=== PATIENT | female | born 1935 | race Caucasian/White ===

== ENCOUNTER → 2016-10-24 | Outpatient (CLI) | payer MEDICARE ==
--- NOTE | 2016-10-24 12:03 | CT ---
EXAMINATION TYPE: CT ChestAbdPelvis w con DATE OF EXAM: 10/24/2016 11:39 AM COMPARISON: CT cap December 18, 2015. HISTORY: Metastatic breast cancer. CT DLP: 1324 mGycm. Automated Exposure Control for Dose Reduction was Utilized. CONTRAST: CT scan of the thorax, abdomen and pelvis is performed with oral and with IV Contrast, patient inject ed with 80 ml mL of Visipaque 320. FINDINGS: Exam is suboptimal as is degraded by patient motion and noncooperation. Significant respira tory motion artifact is noted. LUNGS: There is motion artifact seen making evaluation for subcentimeter nodularity suboptimal. There is mild apical scarring felt present bilaterally. No obvious parenchymal nodule or mass is present b ilaterally. No pleural effusion or pneumothorax is identified. MEDIASTINUM: There are no greater than 1 cm hilar or mediastinal lymph nodes. No cardiomegaly or pe ricardial effusion is seen. Coronary artery calcification is present. Heterogeneous slightly promine nt thyroid gland is stable. OTHER: Right breast is surgically absent. LIVER/GB: Gallbladder is not visualized and presumed surgically absent. PANCREAS: No significant abnormality is seen. SPLEEN: No significant abnormality is seen. ADRENALS: No significant abnormality is seen. KIDNEYS: Staghorn type calculus measuring 16 mm on long axis on coronal image 16 with fullness of rig ht renal pelvis is redemonstrated. It is increase in size and moved to renal pelvis location versus p rior. There is symmetric cortical medullary uptake and excretion from both kidneys. There is mild wal l thickening throughout the urinary bladder. BOWEL: There is redundant sigmoid colon GENITAL ORGANS: No gross abnormality seen. LYMPH NODES: No greater than 1cm abdominal or pelvic lymph nodes are appreciated. OSSEOUS STRUCTURES: Diffuse osseous sclerotic metastatic disease is redemonstrated, overall no signif icant change is present from prior study. No obvious new pathologic fractures are identified. OTHER: There is moderate calcified atherotic change of aorta and branch vessels. IMPRESSION: Suboptimal study with stable diffuse osseous metastatic disease redemonstrated. No new ma ss or adenopathy is clearly seen. Progression in size and position of large right renal calculus into pelvis is noted.
--- NOTE | 2016-10-24 15:06 | NM ---
EXAMINATION TYPE: NM bone scan whole body DATE OF EXAM: 10/24/2016 2:44 PM COMPARISON: CT 10/24/2016 HISTORY: Pain possible bone metastases Delayed whole-body scanning was performed following the injection of 27.5 mCi Tc 99m MDP. Images acq uired 4.5 hours post injection. FINDINGS: There is extensive and diffuse abnormal uptake throughout the rib cage bilaterally and throughout the vertebral column, pelvic bones and proximal for more. Abnormal uptake involving the left humeral hea d noted. Findings suspicious for malignancy. Abnormal uptake involving the feet, ankles, and shoulders typical of arthritic change. IMPRESSION: Diffuse abnormal uptake corresponds to the CT abnormalities compatible with bony metastases
== END ==
LOC: RADNMMAIN 08:52
PROVIDERS: ATTEND Internal Medicine Hematology & Oncology
DX: C50.411 Malignant neoplasm of upper-outer quadrant of right female breast (principal); C79.51 Secondary malignant neoplasm of bone; N20.0 Calculus of kidney
CPT/HCPCS: 82565; 84520; 71260; 74177; 36415; 78306; A9503; Q9967 ×2

== ENCOUNTER 2016-11-26 13:26 | Inpatient (IN) | payer MEDICARE ==
[2016-11-26] MEDS ORDERED: SODIUM CHLORIDE 0.9% 1,000 ML IV STA (14:24)
--- NOTE | 2016-11-26 14:33 | ED ---
General Adult HPI - General Chief complaint: Weakness Stated complaint: weakness Time Seen by Provider: 11/26/16 13:50 Source: patient, family, RN notes reviewed Mode of arrival: EMS Limitations: no limitations - History of Present Illness Initial comments: Patient is a very pleasant 81-year-old female presenting to the emergency Department with concerns of lower back discomfort. Family adds that appears that she has been generally weak and acting out of bed for the past few days. Patient has been urinating on herself. Patient admits to feeling somewhat weak all over. Patient does have a history of metastatic breast cancer that is somewhat controlled with hormone therapy. Patient states she has been drinking and does not feel dehydrated. Patient denies any isolated area of weakness. Patient denies confusion. Patient is concerned she could have a kidney stone. - Related Data Home Medications Medication Instructions Recorded Confirmed Anastrozole [Arimidex] 1 mg PO DAILY 05/14/15 11/26/16 Cholecalciferol [Vitamin D3] 2,000 unit PO DAILY 05/14/15 11/26/16 INSULIN LISPRO (humaLOG) [humaLOG 30 - 40 unit SQ AC-BID 11/26/16 11/26/16 (formulary)] Warfarin [Coumadin] 3 mg PO TUTH 11/26/16 11/26/16 glyBURIDE/METFORMIN HCL 2 tab PO BID 11/26/16 11/26/16 [glyBURIDE/METFORMIN HCL 5-500 mg] Previous Rx's Medication Instructions Recorded Acetaminophen Tab [Tylenol] 650 mg PO Q6HR PRN #0 tab 04/20/16 Metoprolol Tartrate [Lopressor] 25 mg PO BID tab 04/20/16 Allergies Allergy/AdvReac Type Severity Reaction Status Date / Time codeine Allergy Abdominal Verified 11/26/16 13:46 Pain Review of Systems ROS Statement: Those systems with pertinent positive or pertinent negative responses have been documented in the HPI. ROS Other: All systems not noted in ROS Statement are negative. Constitutional: Denies: fever Eyes: Denies: eye pain ENT: Denies: ear pain Respiratory: Denies: cough Cardiovascular: Denies: chest pain Endocrine: Denies: fatigue Gastrointestinal: Denies: abdominal pain Genitourinary: Denies: dysuria Musculoskeletal: Reports: back pain Skin: Denies: rash Neurological: Denies: weakness Past Medical History Past Medical History: Cancer, Diabetes Mellitus, Deep Vein Thrombosis (DVT), Hyperlipidemia, Hypertension, Memory Impairment Additional Past Medical History / Comment(s): hx. 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 DVT leg years ago, uses walker, bone CA-sees dr hu, leakage of urine,arhtirits, fx both feet (casted on;y) History of Any Multi-Drug Resistant Organisms: None Reported Past Surgical History: Breast Surgery, Cholecystectomy, Heart Catheterization, Tubal Ligation Additional Past Surgical History / Comment(s): right mastectomy, cataracts removed, excision of lesion rt cheek, steroid inj in past for heel spur Past Anesthesia/Blood Transfusion Reactions: No Reported Reaction Past Psychological History: No Psychological Hx Reported Additional Psychological History / Comment(s): lives alone in own home, uses a cane or walker to get around.recieves meals on wheels but no other outside services. Smoking Status: Never smoker Past Alcohol Use History: None Reported Past Drug Use History: None Reported - Past Family History Mother Family Medical History: Diabetes Mellitus Father Family Medical History: Congestive Heart Failure (CHF) General Exam Limitations: no limitations General appearance: alert, in no apparent distress Head exam: Present: atraumatic Eye exam: Present: normal appearance, PERRL ENT exam: Present: mucous membranes dry Neck exam: Present: normal inspection Respiratory exam: Present: normal lung sounds bilaterally Cardiovascular Exam: Present: regular rate, normal rhythm GI/Abdominal exam: Present: soft, normal bowel sounds. Absent: distended, tenderness, guarding, rebound, rigid, pulsatile mass Extremities exam: Present: normal inspection Back exam: Present: CVA tenderness (R) (Mild tenderness below the right CVA region) Neurological exam: Present: alert, CN II-XII intact Expanded Speech: Present: fluid speech Cranial nerves: EOM's Intact: Normal, Facial Sensation: Normal Sensory exam: Upper Extremity Light Touch: Normal, Lower Extremity Light Touch: Normal Motor strength exam: RUE: 5, LUE: 5, RLE: 5, LLE: 5 Psychiatric exam: Present: normal affect, normal mood Skin exam: Absent: rash Course Vital Signs 11/26/16 11/26/16 13:37 15:44 Temperature 98.8 F 99.1 F Pulse Rate 86 78 Respiratory 18 18 Rate Blood Pressure 105/57 103/55 O2 Sat by Pulse 93 L 97 Oximetry EKG Findings - EKG Comments: EKG Findings:: Sinus rhythm at 88. RI 150. QRS 132. QT 374. QTC 452. Normal axis. Right bundle branch block. No acute ST change. Medical Decision Making - Medical Decision Making Patient reexamined. Patient and family updated. Dr. Ordoñez has been paged for admission for Dr. Rcihardson. Patient does not meet Sirs criteria - Lab Data Result diagrams: 11/26/16 14:48 11/26/16 14:48 Lab Results 11/26/16 11/26/16 11/26/16 Range/Units 14:48 14:48 14:48 WBC 16.1 H (3.8-10.6) k/uL RBC 4.38 (3.80-5.40) m/uL Hgb 11.9 (11.4-16.0) gm/dL Hct 36.0 (34.0-46.0) % MCV 82.3 (80.0-100.0) fL MCH 27.2 (25.0-35.0) pg MCHC 33.0 (31.0-37.0) g/dL RDW 14.4 (11.5-15.5) % Plt Count 231 (150-450) k/uL Neutrophils % 90 % Lymphocytes % 3 % Monocytes % 6 % Eosinophils % 0 % Basophils % 0 % Neutrophils # 14.4 H (1.3-7.7) k/uL Lymphocytes # 0.4 L (1.0-4.8) k/uL Monocytes # 1.0 (0-1.0) k/uL Eosinophils # 0.0 (0-0.7) k/uL Basophils # 0.0 (0-0.2) k/uL PT (9.0-12.0) sec INR (<1.1) APTT (22.0-30.0) sec Sodium 132 L (137-145) mmol/L Potassium 4.1 (3.5-5.1) mmol/L Chloride 100 (98-107) mmol/L Carbon Dioxide 23 (22-30) mmol/L Anion Gap 9 mmol/L BUN 51 H (7-17) mg/dL Creatinine 1.70 H (0.52-1.04) mg/dL Est GFR (MDRD) Af Amer 35 (>60 ml/min/1.73 sqM) Est GFR (MDRD) Non-Af 29 (>60 ml/min/1.73 sqM) Glucose 120 H (74-99) mg/dL Calcium 9.6 (8.4-10.2) mg/dL Phosphorus 2.5 (2.5-4.5) mg/dL Magnesium 2.1 (1.6-2.3) mg/dL Total Bilirubin 0.8 (0.2-1.3) mg/dL AST 29 (14-36) U/L ALT 67 H (9-52) U/L Alkaline Phosphatase 77 (38-126) U/L Total Creatine Kinase 173 H (30-135) U/L CK-MB (CK-2) 1.7 (0.0-2.4) ng/mL CK-MB (CK-2) Rel Index 1.0 Troponin I 0.089 H* (0.000-0.034) ng/mL Total Protein 6.0 L (6.3-8.2) g/dL Albumin 3.0 L (3.5-5.0) g/dL TSH 2.560 (0.465-4.680) mIU/L Free T4 1.36 (0.78-2.19) ng/dL Free T3 pg/mL 2.7 L (2.8-5.3) pg/ml Urine Color Urine Appearance (Clear) Urine pH (5.0-8.0) Ur Specific [place] (1.001-1.035) Urine Protein (Negative) Urine Glucose (UA) (Negative) Urine Ketones (Negative) Urine Blood (Negative) Urine Nitrite (Negative) Urine Bilirubin (Negative) Urine Urobilinogen (<2.0) mg/dL Ur Leukocyte Esterase (Negative) Urine RBC (0-5) /hpf Urine WBC (0-5) /hpf Urine WBC Clumps (None) /hpf Urine Bacteria (None) /hpf Urine Mucus (None) /hpf 11/26/16 11/26/16 Range/Units 14:48 14:48 WBC (3.8-10.6) k/uL RBC (3.80-5.40) m/uL Hgb (11.4-16.0) gm/dL Hct (34.0-46.0) % MCV (80.0-100.0) fL MCH (25.0-35.0) pg MCHC (31.0-37.0) g/dL RDW (11.5-15.5) % Plt Count (150-450) k/uL Neutrophils % % Lymphocytes % % Monocytes % % Eosinophils % % Basophils % % Neutrophils # (1.3-7.7) k/uL Lymphocytes # (1.0-4.8) k/uL Monocytes # (0-1.0) k/uL Eosinophils # (0-0.7) k/uL Basophils # (0-0.2) k/uL PT 18.5 H (9.0-12.0) sec INR 1.9 (<1.1) APTT 29.1 (22.0-30.0) sec Sodium (137-145) mmol/L Potassium (3.5-5.1) mmol/L Chloride (98-107) mmol/L Carbon Dioxide (22-30) mmol/L Anion Gap mmol/L BUN (7-17) mg/dL Creatinine (0.52-1.04) mg/dL Est GFR (MDRD) Af Amer (>60 ml/min/1.73 sqM) Est GFR (MDRD) Non-Af (>60 ml/min/1.73 sqM) Glucose (74-99) mg/dL Calcium (8.4-10.2) mg/dL Phosphorus (2.5-4.5) mg/dL Magnesium (1.6-2.3) mg/dL Total Bilirubin (0.2-1.3) mg/dL AST (14-36) U/L ALT (9-52) U/L Alkaline Phosphatase (38-126) U/L Total Creatine Kinase (30-135) U/L CK-MB (CK-2) (0.0-2.4) ng/mL CK-MB (CK-2) Rel Index Troponin I (0.000-0.034) ng/mL Total Protein (6.3-8.2) g/dL Albumin (3.5-5.0) g/dL TSH (0.465-4.680) mIU/L Free T4 (0.78-2.19) ng/dL Free T3 pg/mL (2.8-5.3) pg/ml Urine Color Light Yellow Urine Appearance Cloudy H (Clear) Urine pH 6.5 (5.0-8.0) Ur Specific [place] 1.007 (1.001-1.035) Urine Protein 1+ H (Negative) Urine Glucose (UA) Negative (Negative) Urine Ketones Negative (Negative) Urine Blood Small H (Negative) Urine Nitrite Negative (Negative) Urine Bilirubin Negative (Negative) Urine Urobilinogen <2.0 (<2.0) mg/dL Ur Leukocyte Esterase Large H (Negative) Urine RBC 4 (0-5) /hpf Urine WBC 85 H (0-5) /hpf Urine WBC Clumps Many H (None) /hpf Urine Bacteria Few H (None) /hpf Urine Mucus Rare H (None) /hpf - Radiology Data Radiology results: report reviewed (Computed tomography scan the brain shows no acute process.), image reviewed (Computed tomography scan of the abdomen and pelvis shows 0.8 cm renal pelvis stone without obstruction. Sclerotic metastasis. Two-view chest x-ray shows no acute process.) Disposition Clinical Impression: ARF (acute renal failure), Dehydration, Urinary tract infection, Weakness Disposition: ADMITTED IP TO [facility] Condition: Serious Time of Disposition: 16:08
[2016-11-26 14:59] LABS: Basophils % (A) 0 %; CH 27.2; CHCM 33.3; Eosinophils % (A) 0 %; HDW 2.55; HGB 11.9 gm/dL (11.4-16.0); Luc # (Auto) 0.24; Luc % (Auto) 2; Lymphocytes # (A) 0.4 k/uL (1.0-4.8); Lymphocytes % (A) 3 %; MCH 27.2 pg (25.0-35.0); MCV 82.3 fL (80.0-100.0); Mean Platelet Volume 6.8; Monocytes % (A) 6 %; Neutrophils # (A) 14.4 k/uL (1.3-7.7); Neutrophils % (A) 90 %; RBC 4.38 m/uL (3.80-5.40); RDW 14.4 % (11.5-15.5); WBC 16.1 k/uL (3.8-10.6); WBC (Perox) 15.76
[2016-11-26 15:11] LABS: Appearance,Urine Cloudy (Clear); Bacteria,Urine Few /hpf; Bilirubin,Urine Negative (Negative); Glucose,Urine (UA) Negative (Negative); Ketones,Urine Negative (Negative); Leukocyte Esterase,Urine Large (Negative); Mucus,Urine Rare /hpf; Nitrite,Urine Negative (Negative); PH, Urine 6.5 (5.0-8.0); Particle Count 92795; Protein,Urine 1+ (Negative); RBC,Urine 4 /hpf (0-5); Specific Gravity,Urine 1.007 (1.001-1.035); UA Billing (MACRO vs. MICRO) MICRO; Urobilinogen,Urine <2.0 mg/dL (<2.0); WBC,Urine 85 /hpf (0-5)
[2016-11-26 15:17] LABS: Calcium 9.6 mg/dL (8.4-10.2); Magnesium 2.1 mg/dL (1.6-2.3); Phosphorous 2.5 mg/dL (2.5-4.5); Potassium 4.1 mmol/L (3.5-5.1); Total Bilirubin 0.8 mg/dL (0.2-1.3)
[2016-11-26 15:19] LABS: INR 1.9 (<1.1); Partial Thromboplastin Time 29.1 sec (22.0-30.0); Prothrombin Time 18.5 sec (9.0-12.0)
--- NOTE | 2016-11-26 15:29 | CT ---
EXAMINATION TYPE: CT brain wo con DATE OF EXAM: 11/26/2016 3:25 PM COMPARISON: NONE INDICATION: Weakness DLP: 1072.30 mGycm, Automated exposure control for dose reduction was used. CONTRAST: None CT of the brain is performed utilizing 3 mm thick sections through the posterior fossa and 3 mm thick sections through the remaining calvarium. Study is performed within 24 hours of arrival to the hosp ital. No abnormal hyperdensity is present to suggest an acute intracranial hemorrhage. No mass lesion is evident. Physiologic basal ganglion calcification is present on the right and faint ly on the left. No acute infarcts are evident. Periventricular white matter hypodensity is present, likely on the bas is of chronic white matter ischemic changes. There is an old lacunar infarct or Virchow-Zbigniew space o n the left at the inferior basal ganglion. Ventricles and sulci are mildly prominent for the patient age. Paranasal sinuses and mastoid air cells within the [id number]-[id number] are clear. IMPRESSIONS: 1. Atrophy with periventricular white matter ischemic type changes.
[2016-11-26 15:33] LABS: Creatine Kinase MB 1.7 ng/mL (0.0-2.4)
[2016-11-26 15:45] LABS: Troponin I 0.089 ng/mL (0.000-0.034)
--- NOTE | 2016-11-26 16:03 | CT ---
EXAMINATION TYPE: CT abdomen pelvis wo con DATE OF EXAM: 11/26/2016 3:25 PM COMPARISON: 10/24/2016 INDICATION: Left side flank pain, history of breast cancer with metastasis. DLP: 812.80 mGycm, Automated exposure control for dose reduction was used. CONTRAST: 0 mL of Omnipaque 300. Study performed without Oral Contrast TECHNIQUE: Axial images were obtained from above the diaphragm to the pubic rami in the axial plane a t 5 mm thick sections. Reconstructed images are reviewed on the computer in the coronal plane. FINDINGS: Limited CT sections are obtained the lung bases. Small bilateral pleural effusions are present, grea ter on the right.. Coronary artery calcification is present. CT ABDOMEN: Liver: Normal Spleen: Normal Pancreas: Normal Adrenal glands: Some mild thickening of the left adrenal gland is present measuring 1.3 cm. The right adrenal gland appears within normal limits. Gallbladder: Normal Kidneys: No masses are evident. No hydronephrosis is present. No cysts are present. There is a 0.8 cm proximal right renal pelvis stone. No hydronephrosis is present. There is minimal prominence of t he renal pelvis. No hydroureter is evident. Some perinephric stranding may be present bilaterally. Th e right renal stone was present previously. Aorta: Vascular calcification is within the aorta. Inferior vena cava: Normal. CT PELVIS: Loops of bowel within the abdomen and pelvis are normal. No oral contrast was utilized. Appendix: Not identified Urinary bladder: Normal. Genitourinary structures: Uterus contains calcifications compatible calcified fibroids. Adnexal regio ns are clear. Osseous structures: There are some scattered sclerotic areas within the right femoral neck and within the lateral pubic ramus. A small sclerotic area may be within the lateral right pubic ramus. Some sc lerosis is along the left femoral neck. Sclerotic metastases are not excluded. There are additional s clerotic areas within the S1 level within the medial iliac wings. Multiple Areas of sclerosis are wit hin the vertebral bodies. Correlate for osseous metastasis. IMPRESSIONS: 1. 0.8 cm right renal pelvis stone without obstruction. 2. Sclerotic metastases within the osseous structures. 3. No suspicious etiology for left flank pain.
--- NOTE | 2016-11-26 16:05 | XR ---
EXAMINATION TYPE: XR chest 2V DATE OF EXAM: 11/26/2016 3:37 PM COMPARISON: 04/13/2016 INDICATION: Short of breath TECHNIQUE: Single frontal view of the chest is obtained. FINDINGS: The heart size is normal. The pulmonary vasculature is upper limits of normal. The lungs are clear. IMPRESSION: 1. No acute pulmonary process.
[2016-11-26] MEDS ORDERED: MORPHINE SULFATE 4 MG/ML SYRINGE IV PRN (16:08)
[2016-11-26] MEDS ORDERED: traMADol 50 MG TAB PO PRN (16:08)
[2016-11-26] MEDS ORDERED: NALOXONE 0.4 MG/ML 1 ML VIAL IV PRN (16:08)
[2016-11-26] MEDS: SODIUM CHLORIDE 0.9% 1,000 ML IV SCH (16:30)
[2016-11-26 18:31] LABS: Glucose,Whole Blood 45 mg/dL (75-99)
[2016-11-26 18:35] LABS: Glucose,Whole Blood 48 mg/dL (75-99)
[2016-11-26 19:31] LABS: Glucose,Whole Blood 80 mg/dL (75-99)
[2016-11-26 19:31] LABS: Glucose,Whole Blood 63 mg/dL (75-99)
[2016-11-26 21:15] LABS: Glucose,Whole Blood 162 mg/dL (75-99)
[2016-11-27] MEDS: SODIUM CHLORIDE 0.9% 1,000 ML IV SCH ×2 (03:38→21:08)
[2016-11-27 06:35] LABS: Glucose,Whole Blood 79 mg/dL (75-99)
[2016-11-27] MEDS: INSULIN LISPRO (humaLOG) 300 UNIT/3 ML VIAL SQ SCH ×4 (06:43→21:12)
[2016-11-27 07:34] LABS: Calcium 9.6 mg/dL (8.4-10.2)
--- NOTE | 2016-11-27 10:21 | P.HPIM ---
History of Present Illness H&P Date: 11/27/16 Chief Complaint: Generalized weakness and mental status changes Patient is a 81-year-old female who presented to emergency room with generalized weakness, mental status changes, urinary incontinence, and low back pain. Family stated in the emergency room that patient was staying in bed and not talking to anybody she was having urinary incontinence she was complaining of low back pain she was brought into emergency room for further evaluation. In the emergency room patient had evidence of leukocytosis with white blood count of 16.1 she also had evidence of acute renal failure was elevated BUN at 51 and elevated creatinine at 1.7 there was evidence of urinary tract infection patient was started on IV antibiotic Rocephin and was admitted to the hospital for further evaluation and treatment. Past medical history significant for #1 history of breast cancer with metastatic disease maintained on hormonal therapy #2 history of tcs-[id number]-nevynlhhz diabetes mellitus #3 previous history of DVT also history of atrial fibrillation diagnosed in March 2016 maintained on Coumadin INR on presentation 1.9 #4 underlying history of hypertension Past Medical History Past Medical History: Cancer, Diabetes Mellitus, Deep Vein Thrombosis (DVT), Hyperlipidemia, Hypertension, Memory Impairment Additional Past Medical History / Comment(s): hx. breast cancer-2013, metastasis to spine-gets tx. DVT leg years ago, uses walker, bone CA-sees dr hu, History of Any Multi-Drug Resistant Organisms: None Reported Past Surgical History: Breast Surgery, Cholecystectomy, Heart Catheterization, Tubal Ligation Additional Past Surgical History / Comment(s): right mastectomy, cataracts removed, excision of lesion rt cheek, steroid inj in past for heel spur Past Anesthesia/Blood Transfusion Reactions: No Reported Reaction Past Psychological History: No Psychological Hx Reported Additional Psychological History / Comment(s): lives alone in own home, uses a cane or walker to get around.recieves meals on wheels but no other outside services. Smoking Status: Never smoker Past Alcohol Use History: None Reported Past Drug Use History: None Reported - Past Family History Mother Family Medical History: Diabetes Mellitus Father Family Medical History: Congestive Heart Failure (CHF) Medications and Allergies Home Medications Medication Instructions Recorded Confirmed Type Anastrozole [Arimidex] 1 mg PO DAILY 05/14/15 11/26/16 History Cholecalciferol [Vitamin D3] 2,000 unit PO DAILY 05/14/15 11/26/16 History INSULIN LISPRO (humaLOG) [humaLOG 30 - 40 unit SQ AC-BID 11/26/16 11/26/16 History (formulary)] Warfarin [Coumadin] 3 mg PO TUTH 11/26/16 11/26/16 History glyBURIDE/METFORMIN HCL 2 tab PO BID 11/26/16 11/26/16 History [glyBURIDE/METFORMIN HCL 5-500 mg] Allergies Allergy/AdvReac Type Severity Reaction Status Date / Time codeine Allergy Abdominal Verified 11/26/16 13:46 Pain Physical Exam Vitals: Vital Signs Temp Pulse Pulse Resp BP BP Pulse Ox 11/27/16 04:00 98.7 F 87 17 136/65 98 11/27/16 00:00 99.8 F H 88 18 121/56 95 11/26/16 20:00 100.3 F H 100 17 134/65 98 11/26/16 16:50 98.4 F 93 16 162/88 100 11/26/16 16:48 98.0 F 75 18 112/51 96 Intake and Output 11/26/16 11/27/16 11/27/16 22:59 06:59 14:59 Intake Total 240 750 Balance 240 750 Intake: IV 750 Sodium Chloride 0.9% 1, 750 000 ml @ 75 mls/hr IV . [id number] [facility] Rx#:[id number] Oral 240 Other: Voiding Method Diaper Diaper # Voids 0 1 Weight 92 kg In general patient is alert slightly confused in no apparent distress HEENT head normocephalic and atraumatic Neck is supple no JVD no goiter no lymphadenopathy Chest exam reveals a few scattered rhonchi no wheezing Cardiac exam reveals regular heart sounds S1 and S2 no gallops no murmurs Abdomen is soft nontender no organomegaly with normal bowel sounds Extremity exam reveals no edema no cyanosis or clubbing Neurological examination reveals no gross focal deficit Results CBC & Chem 7: 11/26/16 14:48 11/27/16 06:25 Labs: Abnormal Lab Results - Last 24 Hours (Table) 11/26/16 11/26/16 11/26/16 Range/Units 18:20 18:33 18:48 Sodium (137-145) mmol/L BUN (7-17) mg/dL Creatinine (0.52-1.04) mg/dL POC Glucose (mg/dL) 45 L 48 L 63 L (75-99) mg/dL 11/26/16 11/27/16 Range/Units 21:10 06:25 Sodium 135 L (137-145) mmol/L BUN 41 H (7-17) mg/dL Creatinine 1.40 H (0.52-1.04) mg/dL POC Glucose (mg/dL) 162 H (75-99) mg/dL Thrombosis Risk Factor Assmnt - Choose All That Apply Each Risk Factor Represents 3 Points: Age 75 years or older Thrombosis Risk Factor Assessment Total Risk Factor Score: 3 Thrombosis Risk Factor Assessment Level: Moderate Risk Assessment and Plan Plan: #1 acute renal failure, likely related to dehydration and prerenal azotemia patient was started on IV fluid Will monitor closely #2 urinary tract infection, patient was started on IV Rocephin in the emergency room awaiting urine culture results #3 right renal pelvis kidney stone, will obtain ultrasound of the kidneys will consult urology #4 underlying history of atrial fibrillation maintained on Coumadin INR is therapeutic will continue was current dose #5 underlying history of metastatic breast cancer, patient is complaining of severe pain in her back Will consult oncology #6 mental status changes may be related to urinary tract infection and dehydration, however if not improving in the next few days will discuss with oncology needs for brain MRI to rule out metastatic brain disease. Will follow closely during this hospitalization please see orders
[2016-11-27 12:12] LABS: Glucose,Whole Blood 177 mg/dL (75-99)
--- NOTE | 2016-11-27 12:14 | P.GSCN ---
History of Present Illness Consult date: 11/27/16 History of present illness: The patient is a 81-year-old female brought to the hospital yesterday by her children because of confusion incontinence and feeling poorly. She was evaluated and found to have a urine infection. She also was identified to have a nonobstructing right renal stone in the renal pelvis. She has been having some back pain. Denies fever or chills. She admits to some confusion and axilla were confused yet today. She states several years ago she passed a stone. She denies urologic consultation. She denies gross hematuria. She feels better today. On computed tomography scan she has an 8 mm right renal pelvic stone without obstruction. Her urinalysis is worrisome for infection she has been started on antibiotics. 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 DVT leg years ago, uses walker, bone CA-sees dr hu, History of Any Multi-Drug Resistant Organisms: None Reported Past Surgical History: Breast Surgery, Cholecystectomy, Heart Catheterization, Tubal Ligation Additional Past Surgical History / Comment(s): right mastectomy, cataracts removed, excision of lesion rt cheek, steroid inj in past for heel spur Past Anesthesia/Blood Transfusion Reactions: No Reported Reaction Past Psychological History: No Psychological Hx Reported Additional Psychological History / Comment(s): lives alone in own home, uses a cane or walker to get around.recieves meals on wheels but no other outside services. Smoking Status: Never smoker Past Alcohol Use History: None Reported Past Drug Use History: None Reported - Past Family History Mother Family Medical History: Diabetes Mellitus Father Family Medical History: Congestive Heart Failure (CHF) Medications and Allergies Home Medications Medication Instructions Recorded Confirmed Type Anastrozole [Arimidex] 1 mg PO DAILY 05/14/15 11/26/16 History Cholecalciferol [Vitamin D3] 2,000 unit PO DAILY 05/14/15 11/26/16 History INSULIN LISPRO (humaLOG) [humaLOG 30 - 40 unit SQ AC-BID 11/26/16 11/26/16 History (formulary)] Warfarin [Coumadin] 3 mg PO TUTH 11/26/16 11/26/16 History glyBURIDE/METFORMIN HCL 2 tab PO BID 11/26/16 11/26/16 History [glyBURIDE/METFORMIN HCL 5-500 mg] Allergies Allergy/AdvReac Type Severity Reaction Status Date / Time codeine Allergy Abdominal Verified 11/26/16 13:46 Pain Surgical - Exam Vital Signs Temp Pulse Resp BP Pulse Ox 98.8 F 86 18 105/57 93 L 11/26/16 13:37 11/26/16 13:37 11/26/16 13:37 11/26/16 13:37 11/26/16 13:37 - General well developed, well nourished, no distress - Eyes PERRL - ENT no hearing loss - Neck trachea midline - Respiratory normal expansion, normal respiratory effort - Cardiovascular Rhythm: regular - Abdomen Abdomen: tender - Integumentary no rash, no growths - Neurologic normal coordination, normal sensation, confused, memory loss - Musculoskeletal normal posture - Psychiatric oriented to person, oriented to place Results - Labs 11/26/16 14:48 11/27/16 06:25 Abnormal Lab Results - Last 24 Hours (Table) 11/26/16 11/26/16 11/26/16 Range/Units 18:20 18:33 18:48 Sodium (137-145) mmol/L BUN (7-17) mg/dL Creatinine (0.52-1.04) mg/dL POC Glucose (mg/dL) 45 L 48 L 63 L (75-99) mg/dL 11/26/16 11/27/16 Range/Units 21:10 06:25 Sodium 135 L (137-145) mmol/L BUN 41 H (7-17) mg/dL Creatinine 1.40 H (0.52-1.04) mg/dL POC Glucose (mg/dL) 162 H (75-99) mg/dL Diabetes panel 11/27/16 Range/Units 06:25 Sodium 135 L (137-145) mmol/L Potassium 4.0 (3.5-5.1) mmol/L Chloride 104 (98-107) mmol/L Carbon Dioxide 23 (22-30) mmol/L BUN 41 H (7-17) mg/dL Creatinine 1.40 H (0.52-1.04) mg/dL Glucose 78 (74-99) mg/dL Calcium 9.6 (8.4-10.2) mg/dL Calcium panel 11/27/16 Range/Units 06:25 Calcium 9.6 (8.4-10.2) mg/dL Pituitary panel 11/27/16 Range/Units 06:25 Sodium 135 L (137-145) mmol/L Potassium 4.0 (3.5-5.1) mmol/L Chloride 104 (98-107) mmol/L Carbon Dioxide 23 (22-30) mmol/L BUN 41 H (7-17) mg/dL Creatinine 1.40 H (0.52-1.04) mg/dL Glucose 78 (74-99) mg/dL Calcium 9.6 (8.4-10.2) mg/dL Adrenal panel 11/27/16 Range/Units 06:25 Sodium 135 L (137-145) mmol/L Potassium 4.0 (3.5-5.1) mmol/L Chloride 104 (98-107) mmol/L Carbon Dioxide 23 (22-30) mmol/L BUN 41 H (7-17) mg/dL Creatinine 1.40 H (0.52-1.04) mg/dL Glucose 78 (74-99) mg/dL Calcium 9.6 (8.4-10.2) mg/dL Assessment and Plan Plan: Impression: Probable urinary tract infection with sepsis. Secondary urinary incontinence. Right renal calculus. Multiple medical issues. Recommendations. She is on IV antibiotics for her urine infection. I would prefer her urine infection treated for proceeding wished kidney stone treatment. Although the kidney stone treatment may be giving her back pain she is not obstructed and I do not think it is an emergency. The treatment of choice for her kidney stone a B shockwave lithotripsy. She would have to be off her Coumadin for 7 days for this treatment can be performed. I will follow this patient with you.
--- NOTE | 2016-11-27 13:29 | US ---
EXAMINATION TYPE: US kidneys/renal and bladder DATE OF EXAM: 11/27/2016 11:57 AM COMPARISON: Previous ultrasound March, CT scan 26 Nov 2016 CLINICAL HISTORY: kidney stone. left flank pain EXAM MEASUREMENTS: Right Kidney: 11.2 x 5.4 x 7.1 cm Left Kidney: 12.9 x 6.7 x 6.6 cm Right Kidney: There is mild right-sided hydronephrosis. No masses seen, the proximal ureteral calculu s is not shown on the submitted images Left Kidney: No hydronephrosis or masses seen Bladder: There is some irregularity to bladder floor, question either debris or wall thickening Cortical medullary differentiation is maintained bilaterally. IMPRESSION: Mild right-sided hydronephrosis, proximal ureteral calculus is not demonstrated in the right kidney a s on CT. There may be some minimal debris or blood within the dependent portion of the bladder.
[2016-11-27 16:13] LABS: Glucose,Whole Blood 161 mg/dL (75-99)
[2016-11-27 20:28] LABS: Glucose,Whole Blood 333 mg/dL (75-99)
[2016-11-28 03:12] LABS: Glucose,Whole Blood 102 mg/dL (75-99)
[2016-11-28 06:50] LABS: Glucose,Whole Blood 101 mg/dL (75-99)
[2016-11-28] MEDS: INSULIN LISPRO (humaLOG) 300 UNIT/3 ML VIAL SQ SCH ×4 (06:51→20:51)
[2016-11-28 07:12] LABS: INR 1.3 (<1.1); Prothrombin Time 13.1 sec (9.0-12.0)
[2016-11-28 07:15] LABS: Calcium 9.5 mg/dL (8.4-10.2); Total Bilirubin 0.6 mg/dL (0.2-1.3); Total Protein 5.7 g/dL (6.3-8.2)
[2016-11-28 07:55] LABS: Basophils % (A) 0 %; CH 26.9; Eosinophils # (A) 0.1 k/uL (0-0.7); Eosinophils % (A) 2 %; HCT 33.1 % (34.0-46.0); HDW 2.63; HGB 10.6 gm/dL (11.4-16.0); Luc # (Auto) 0.31; Luc % (Auto) 4; Lymphocytes # (A) 0.6 k/uL (1.0-4.8); Lymphocytes % (A) 8 %; MCH 27.1 pg (25.0-35.0); MCHC 32.1 g/dL (31.0-37.0); MCV 84.5 fL (80.0-100.0); Mean Platelet Volume 7.1; Monocytes # (A) 0.7 k/uL (0-1.0); Monocytes % (A) 9 %; Neutrophils % (A) 78 %; RBC 3.91 m/uL (3.80-5.40); RDW 14.2 % (11.5-15.5); WBC 7.7 k/uL (3.8-10.6); WBC (Perox) 7.61
[2016-11-28] MEDS: SODIUM CHLORIDE 0.9% 1,000 ML IV SCH ×2 (09:36→20:38)
[2016-11-28] MEDS: ANASTROZOLE 1 MG TAB PO SCH (10:09)
[2016-11-28] MEDS: CHOLECALCIFEROL 1,000 UNIT TAB PO SCH (10:09)
[2016-11-28] MEDS: METOPROLOL TARTRATE 25 MG TAB PO SCH ×2 (10:09→20:37)
[2016-11-28] MEDS ORDERED: HEPARIN SODIUM,PORCINE 5,000 UNIT/ML 1 ML VIAL SQ SCH (10:30)
--- NOTE | 2016-11-28 10:36 | P.PN ---
Subjective Patient presented with generalized weakness and mental status changes. She was found to have Evidence of a UTI. She also had reported lower back pain. And was found to have evidence of kidney stone. She currently on IV Rocephin. Evaluated by urology. The plan is for shockwave lithotripsy outpatient. Patient reports improvement in her back pain. Denies any burning with urination. Denies any chest pain or shortness breath. Denies any nausea or vomiting. Last bowel movement 2 days ago. Her mentation has shown improvement. Patient is been fluctuating between sinus rhythm and atrial flutter. Her metoprolol will be restarted Objective - Vital Signs Vital signs: Vital Signs Temp 96.8 F L 11/28/16 08:00 Pulse 90 11/28/16 08:00 Resp 16 11/28/16 08:00 BP 122/71 11/28/16 08:00 Pulse Ox 97 11/28/16 08:00 Intake & Output 11/27/16 11/28/16 11/28/16 18:59 06:59 18:59 Intake Total 1840 750 240 Balance 1840 750 240 Intake: IV 900 750 Sodium Chloride 0.9% 1, 900 750 000 ml @ 75 mls/hr IV . [id number] [place] Rx#:[id number] Intake, IV Titration 100 Amount cefTRIAXone 1,000 mg In 100 Sodium Chloride 0.9% 50 ml @ 100 mls/hr IVPB Q24HR [place] Rx#:[id number] Oral 840 240 Other: Voiding Method Diaper Toilet # Voids 2 1 - Exam Head normocephalic Neck supple Lungs clear to auscultation bilaterally no wheezing or crackles Heart regular rate and rhythm S1-S2, no rub or gallop Abdomen is soft nontender nondistended positive bowel sounds no hepatosplenomegaly Extremities no edema Neuro alert and orientated to 3 - Labs CBC & Chem 7: 11/28/16 06:11 11/28/16 06:11 Labs: Abnormal Lab Results - Last 24 Hours (Table) 11/27/16 11/27/16 11/27/16 Range/Units 12:06 16:12 20:26 Hgb (11.4-16.0) gm/dL Hct (34.0-46.0) % Lymphocytes # (1.0-4.8) k/uL PT (9.0-12.0) sec BUN (7-17) mg/dL Creatinine (0.52-1.04) mg/dL Glucose (74-99) mg/dL POC Glucose (mg/dL) 177 H 161 H 333 H (75-99) mg/dL Total Protein (6.3-8.2) g/dL Albumin (3.5-5.0) g/dL 11/28/16 11/28/16 11/28/16 Range/Units 03:10 06:11 06:11 Hgb 10.6 L (11.4-16.0) gm/dL Hct 33.1 L (34.0-46.0) % Lymphocytes # 0.6 L (1.0-4.8) k/uL PT 13.1 H (9.0-12.0) sec BUN (7-17) mg/dL Creatinine (0.52-1.04) mg/dL Glucose (74-99) mg/dL POC Glucose (mg/dL) 102 H (75-99) mg/dL Total Protein (6.3-8.2) g/dL Albumin (3.5-5.0) g/dL 11/28/16 11/28/16 Range/Units 06:11 06:36 Hgb (11.4-16.0) gm/dL Hct (34.0-46.0) % Lymphocytes # (1.0-4.8) k/uL PT (9.0-12.0) sec BUN 30 H (7-17) mg/dL Creatinine 1.31 H (0.52-1.04) mg/dL Glucose 105 H (74-99) mg/dL POC Glucose (mg/dL) 101 H (75-99) mg/dL Total Protein 5.7 L (6.3-8.2) g/dL Albumin 2.7 L (3.5-5.0) g/dL Assessment and Plan Plan: #1 acute renal failure, likely related to dehydration and prerenal azotemia. Patient given IV fluids. Creatinine trending down to 1.31. Continue to monitor. #2 urinary tract infection: Urine culture growing gram-negative bacilli. Continue with IV Rocephin #3 right renal pelvis kidney stone: Patient evaluated by urology and they're planning for possible shockwave lithotripsy outpatient. UTI needs to be treated and patient is to be off of Coumadin for 7 days prior to procedure. Ultrasound of kidneys had shown a mild left hydro-nephrosis and minimal debris/ blood in bladder #4 underlying history of atrial fibrillation maintained on Coumadin. INR subtherapeutic at 1.3. Give Coumadin 5 mg tonight. Also spent start patient on subcu heparin until INR is therapeutic for DVT prophylaxis. #5 underlying history of metastatic breast cancer, patient is complaining of severe pain in her back Will consult oncology #6 acute mental status changes , likely a metabolic encephalopathy secondary to urinary tract infection and dehydration. ET scan of the brain showed no metastatic disease. Awaiting oncology evaluation. however if not improving in the next few days will discuss with oncology needs for brain MRI to rule out metastatic brain disease. Patient's mentation does appear to be improving. We' ll continue to monitor Physical therapy consulted I performed an examination of the patient and discussed their management with the physician Bulk Sealer Operator. I have reviewed the Physician Bulk Sealer Operator's notes and agree with the documented findings and plan of care
[2016-11-28 11:11] LABS: Glucose,Whole Blood 266 mg/dL (75-99)
--- NOTE | 2016-11-28 12:16 | CDI ---
In responding to this query, please exercise your independent professional judgment. The [facility] Coding Staff and Clinical Documentation Specialists appreciate your assistance in clarifying documentation, maintaining compliance with coding guidelines, accurately documenting patients condition and capturing severity of illness. The fact that a question is asked does not imply that any particular answer is desired or expected. Communication forms are a method of clarifying documentation and are not made part of the Legal Health Record. Thank you in advance for your clarification. Last Revision, May 2015 Birgit Almodovar [address] [facility] [place] [address] Documentation Clarification Form Date: 11/28/2016 12:08:00 PM From: Jordana Mai RN, CCDS Admit Date: 11/26/2016 4:09:00 PM Patient Name: Emy Rudolph Visit Number: [id number] Dr. Kolton Ordoñez/Shea HILLMAN Atrial fibrillation is documented in the Attending H&P and Progress Notes. History/Risk Factors: Atrial fib/Atrial Flutter, breast CA with mets, DVT, home Coumadin. Clinical Indicators: 11/28 Attending Progress Note: "Patient has a history of atrial fibrillation and atrial flutter. She is fluctuating between sinus rhythm and atrial flutter. 11/28 0353 EKG/telemetry: NSR Treatment: 11/28 Attending Progress Note: "Her home Metoprolol will be restarted today. INR is subtherapeutic. We'll place her on Lovenox 100 g subcu every 12 hours until INR is therapeutic. Cardiology will be consulted." In your professional opinion, can you please clarify the type of atrial fibrillation, if known? Chronic/Permanent Paroxysmal Persistent Other, please specify Unable to determine Please document in your progress notes and discharge summary in order to capture severity of illness and risk of mortality. Include clinical findings that support your diagnosis. FYI: Press F11 to launch patient chart Place X here if this finding has no clinical significance, is not applicable or if you are not able to provide any additional documentation. MTDD
[2016-11-28 16:42] LABS: Glucose,Whole Blood 173 mg/dL (75-99)
--- NOTE | 2016-11-28 17:59 | P.CONS ---
History of Present Illness - Reason for Consult Consult date: 11/28/16 Hx breast cancer Requesting physician: Luis F De Paz - Chief Complaint weakness, back pain - History of Present Illness Ms. Rudolph is a pleasant female pt of Dr. Staples who presented with palpable right breast mass in early 2011 but, did not seek medical attention for it until it became significantly larger and finally in November 2013 she agreed to have mammogram, which revealed a large suspicious mass in the left breast, biopsy confirmed invasive carcinoma. 11/28/13 she had a right mastectomy and axillary node resection, final pathology revealed a grade II invasive ductal carcinoma, 4.5 cm, 2 nodes positive for metastatic disease, one microscopic mets and one macroscopic disease measuring 2.5cm, ER/OK strongly positive and HER2/FELA was 2+ by IHC but negative by FISH. Staging PET scan 12/14/13 revealed diffuse skeletal metastasis but no visceral disease. She started arimidex in December 2013. She had suspect early cord compression at that time but did not have her thoracic spine MRI until 01/27/14 which revealed multiple soft tissue masses at thoracic spine so she had XRT to the T-spine, completed 02/28/14. She started monthly zometa therapy for bone mets 02/07/14 then switched to xgeva and has been on since. F/U treatment bone bone scan 11/24/14 revealed improvement in her bone metastasis. She had mild hypercalcemia so HCTZ was discontinued. She fell and had CT scan of brain which negative for metastatic disease, CT of neck revealed stable bone lesions. Treatment f/u CT CAP and bone scan on 12/18/15 revealed no evidence of disease progression. Follow up CT and bone scan 10/24/16 revealed stable disease. Pt was continued on AI and bisphosphonate therapy at her visit with Dr. Satples, she was told to follow up in 1 week to as her INR was subtherapeutic. Pt was admitted with progressive weakness, urinary incontinence, low back pain. She states only minor improvement in her symptoms since admit, she has been started on abx for UTI, she has been seen by Urology for kidney stone with plans for lithotripsy. She denies fever, vomiting, cough, swelling or bleeding. Review of Systems All systems: negative Constitutional: Reports as per HPI Past Medical History Past Medical History: Cancer, Diabetes Mellitus, Deep Vein Thrombosis (DVT), Hyperlipidemia, Hypertension, Memory Impairment Additional Past Medical History / Comment(s): hx. 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 DVT leg years ago, uses walker, bone CA-sees dr staples, History of Any Multi-Drug Resistant Organisms: None Reported Past Surgical History: Breast Surgery, Cholecystectomy, Heart Catheterization, Tubal Ligation Additional Past Surgical History / Comment(s): right mastectomy, cataracts removed, excision of lesion rt cheek, steroid inj in past for heel spur Past Anesthesia/Blood Transfusion Reactions: No Reported Reaction Past Psychological History: No Psychological Hx Reported Additional Psychological History / Comment(s): lives alone in own home, uses a cane or walker to get around.recieves meals on wheels but no other outside services. Smoking Status: Never smoker Past Alcohol Use History: None Reported Past Drug Use History: None Reported - Past Family History Mother Family Medical History: Diabetes Mellitus Father Family Medical History: Congestive Heart Failure (CHF) Medications and Allergies Home Medications Medication Instructions Recorded Confirmed Type Anastrozole [Arimidex] 1 mg PO DAILY 05/14/15 11/26/16 History Cholecalciferol [Vitamin D3] 2,000 unit PO DAILY 05/14/15 11/26/16 History INSULIN LISPRO (humaLOG) [humaLOG 30 - 40 unit SQ AC-BID 11/26/16 11/26/16 History (formulary)] Warfarin [Coumadin] 3 mg PO TUTH 11/26/16 11/26/16 History glyBURIDE/METFORMIN HCL 2 tab PO BID 11/26/16 11/26/16 History [glyBURIDE/METFORMIN HCL 5-500 mg] Allergies Allergy/AdvReac Type Severity Reaction Status Date / Time codeine Allergy Abdominal Verified 11/26/16 13:46 Pain Physical Exam Vitals: Vital Signs Temp Pulse Resp BP Pulse Ox 11/28/16 16:00 97.1 F L 70 16 130/64 98 11/28/16 12:00 81 16 118/56 97 11/28/16 08:00 96.8 F L 90 16 122/71 97 11/28/16 04:00 98.7 F 90 18 152/72 96 11/28/16 00:00 98.1 F 90 16 140/64 94 L 11/27/16 20:00 97.7 F 93 17 152/70 99 Intake and Output 11/28/16 11/28/16 11/28/16 06:59 14:59 22:59 Intake Total 750 1270 240 Balance 750 1270 240 Intake: IV 750 450 Sodium Chloride 0.9% 1, 750 450 000 ml @ 75 mls/hr IV . [id number] [place] Rx#:[id number] Intake, IV Titration 100 Amount cefTRIAXone 1,000 mg In 100 Sodium Chloride 0.9% 50 ml @ 100 mls/hr IVPB Q24HR [place] Rx#:[id number] Oral 720 240 Other: Voiding Method Toilet # Voids 1 - Constitutional General appearance: average body habitus, cooperative, no acute distress - EENT Eyes: anicteric sclerae, EOMI, PERRLA, normal appearance ENT: hearing grossly normal, normal oropharynx - Neck Neck: no lymphadenopathy - Respiratory Respiratory: bilateral: CTA - Cardiovascular Heart sounds: normal: S1, S2 leg Peripheral Edema: bilateral: Trace - Gastrointestinal General gastrointestinal: no absent bowel sounds, no decreased bowel sounds, no distended, no hepatomegaly, no hyperactive bowel sounds, normal bowel sounds, no organomegaly, no rigid, no scaphoid, soft, no splenomegaly, no tenderness, no umbilical hernia, no ventral hernia - Integumentary Integumentary: normal - Neurologic Neurologic: CNII-XII intact - Musculoskeletal Musculoskeletal: strength equal bilaterally - Psychiatric Psychiatric: A&O x's 3, appropriate affect, intact judgment & insight Results CBC & Chem 7: 11/28/16 06:11 11/28/16 06:11 Labs: Abnormal Lab Results - Last 24 Hours (Table) 11/27/16 11/28/16 11/28/16 Range/Units 20:26 03:10 06:11 Hgb 10.6 L (11.4-16.0) gm/dL Hct 33.1 L (34.0-46.0) % Lymphocytes # 0.6 L (1.0-4.8) k/uL PT (9.0-12.0) sec BUN (7-17) mg/dL Creatinine (0.52-1.04) mg/dL Glucose (74-99) mg/dL POC Glucose (mg/dL) 333 H 102 H (75-99) mg/dL Total Protein (6.3-8.2) g/dL Albumin (3.5-5.0) g/dL 11/28/16 11/28/16 11/28/16 Range/Units 06:11 06:11 06:36 Hgb (11.4-16.0) gm/dL Hct (34.0-46.0) % Lymphocytes # (1.0-4.8) k/uL PT 13.1 H (9.0-12.0) sec BUN 30 H (7-17) mg/dL Creatinine 1.31 H (0.52-1.04) mg/dL Glucose 105 H (74-99) mg/dL POC Glucose (mg/dL) 101 H (75-99) mg/dL Total Protein 5.7 L (6.3-8.2) g/dL Albumin 2.7 L (3.5-5.0) g/dL 11/28/16 11/28/16 Range/Units 11:10 16:41 Hgb (11.4-16.0) gm/dL Hct (34.0-46.0) % Lymphocytes # (1.0-4.8) k/uL PT (9.0-12.0) sec BUN (7-17) mg/dL Creatinine (0.52-1.04) mg/dL Glucose (74-99) mg/dL POC Glucose (mg/dL) 266 H 173 H (75-99) mg/dL Total Protein (6.3-8.2) g/dL Albumin (3.5-5.0) g/dL Comments: KUB US report reviewed Chest x-ray: report reviewed CT scan - abdomen: report reviewed CT Scan - head: report reviewed CT scan - pelvis: report reviewed Assessment and Plan (1) 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 Pt will continue on Arimidex at this time. Will ask Radiologist to compare CT with recent CT of 10/24/16 for any acute changes. Pt will also continue on bisphosphonate therapy, she thought she was due this week but she is not due until the end of the month. Status: Chronic (2) Paroxysmal a-fib Narrative/Plan: Recommend resuming coumadin as soon as procedures are complete. Status: Chronic
[2016-11-28] MEDS ORDERED: WARFARIN 5 MG TAB PO ONE (18:00)
[2016-11-28] MEDS: ENOXAPARIN 100 MG/ML SYRINGE SQ SCH (20:37)
[2016-11-28 20:41] LABS: Glucose,Whole Blood 306 mg/dL (75-99)
[2016-11-29 06:15] LABS: Glucose,Whole Blood 193 mg/dL (75-99)
[2016-11-29] MEDS: INSULIN LISPRO (humaLOG) 300 UNIT/3 ML VIAL SQ SCH ×4 (06:52→21:10)
--- NOTE | 2016-11-29 07:09 | P.PN ---
Subjective The patient is feeling better with regards to her her urine infection as well as her back pain. She does have the 8 mm renal pelvic stone on the right. She is a candidate for shockwave lithotripsy which tentatively will be scheduled for December 05. She'll have to be off all anticoagulation prior to that including aspirin and anti-inflammatories and anticoagulants Objective - Vital Signs Vital signs: Vital Signs Temp 97.4 F L 11/28/16 20:00 Pulse 67 11/29/16 04:00 Resp 16 11/29/16 04:00 BP 140/64 11/29/16 04:00 Pulse Ox 94 L 11/29/16 04:00 Intake & Output 11/28/16 11/29/16 11/29/16 18:59 06:59 18:59 Intake Total 1510 900 Balance 1510 900 Weight 92.1 kg Intake: IV 450 900 Sodium Chloride 0.9% 1, 450 900 000 ml @ 75 mls/hr IV . [id number] [place] Rx#:[id number] Intake, IV Titration 100 Amount cefTRIAXone 1,000 mg In 100 Sodium Chloride 0.9% 50 ml @ 100 mls/hr IVPB Q24HR [place] Rx#:[id number] Oral 960 - Labs CBC & Chem 7: 11/28/16 06:11 11/28/16 06:11 Labs: Abnormal Lab Results - Last 24 Hours (Table) 11/28/16 11/28/16 11/28/16 Range/Units 06:11 06:11 06:11 Hgb 10.6 L (11.4-16.0) gm/dL Hct 33.1 L (34.0-46.0) % Lymphocytes # 0.6 L (1.0-4.8) k/uL PT 13.1 H (9.0-12.0) sec BUN 30 H (7-17) mg/dL Creatinine 1.31 H (0.52-1.04) mg/dL Glucose 105 H (74-99) mg/dL POC Glucose (mg/dL) (75-99) mg/dL Total Protein 5.7 L (6.3-8.2) g/dL Albumin 2.7 L (3.5-5.0) g/dL 11/28/16 11/28/16 11/28/16 Range/Units 11:10 16:41 20:39 Hgb (11.4-16.0) gm/dL Hct (34.0-46.0) % Lymphocytes # (1.0-4.8) k/uL PT (9.0-12.0) sec BUN (7-17) mg/dL Creatinine (0.52-1.04) mg/dL Glucose (74-99) mg/dL POC Glucose (mg/dL) 266 H 173 H 306 H (75-99) mg/dL Total Protein (6.3-8.2) g/dL Albumin (3.5-5.0) g/dL 11/29/16 Range/Units 06:13 Hgb (11.4-16.0) gm/dL Hct (34.0-46.0) % Lymphocytes # (1.0-4.8) k/uL PT (9.0-12.0) sec BUN (7-17) mg/dL Creatinine (0.52-1.04) mg/dL Glucose (74-99) mg/dL POC Glucose (mg/dL) 193 H (75-99) mg/dL Total Protein (6.3-8.2) g/dL Albumin (3.5-5.0) g/dL
[2016-11-29 07:37] LABS: Basophils % (A) 0 %; CH 26.8; CHCM 30.8; Eosinophils # (A) 0.1 k/uL (0-0.7); Eosinophils % (A) 2 %; HCT 35.6 % (34.0-46.0); HDW 2.59; HGB 11.3 gm/dL (11.4-16.0); Hypochromasia Slight; Luc # (Auto) 0.29; Luc % (Auto) 4; Lymphocytes # (A) 0.8 k/uL (1.0-4.8); Lymphocytes % (A) 9 %; MCH 27.7 pg (25.0-35.0); MCHC 31.6 g/dL (31.0-37.0); MCV 87.6 fL (80.0-100.0); Mean Platelet Volume 6.9; Monocytes # (A) 0.7 k/uL (0-1.0); Monocytes % (A) 8 %; Neutrophils # (A) 6.5 k/uL (1.3-7.7); Neutrophils % (A) 77 %; RBC 4.07 m/uL (3.80-5.40); RDW 14.6 % (11.5-15.5); WBC 8.4 k/uL (3.8-10.6); WBC (Perox) 8.85
[2016-11-29 08:02] LABS: INR 1.2 (<1.1); Prothrombin Time 11.7 sec (9.0-12.0)
[2016-11-29 08:25] LABS: Potassium 4.7 mmol/L (3.5-5.1); Total Bilirubin 0.6 mg/dL (0.2-1.3); Total Protein 6.3 g/dL (6.3-8.2)
[2016-11-29] MEDS: ENOXAPARIN 100 MG/ML SYRINGE SQ SCH (08:28)
[2016-11-29] MEDS: ACETAMINOPHEN TAB 325 MG TAB PO PRN ×2 (08:28→21:09)
[2016-11-29] MEDS: CHOLECALCIFEROL 1,000 UNIT TAB PO SCH (08:29)
[2016-11-29] MEDS: ANASTROZOLE 1 MG TAB PO SCH (08:29)
[2016-11-29] MEDS: METOPROLOL TARTRATE 25 MG TAB PO SCH ×2 (08:29→21:09)
--- NOTE | 2016-11-29 09:10 | XR ---
Abdomen HISTORY: Right renal stone Frontal view of the abdomen submitted on 2 images. Correlation to renal ultrasound 27 Nov 2016, CT abdomen pelvis 26 Nov 2016 Sclerotic bone metastases have been previously demonstrated. Vascular calcifications are present. Tea rdrop calcification compatible with renal pelvic stone on the right is noted measuring approximately 8 x 19 mm. Vascular calcifications are present, probable calcified fibroid in the left hemipelvis. No bowel obstruction or pneumoperitoneum. Lung bases are clear. Heart size is borderline increased. The re are overlying cardiac leads. IMPRESSION: Right renal pelvic stone as noted on CT.
[2016-11-29] MEDS: SODIUM CHLORIDE 0.9% 1,000 ML IV SCH (10:07)
--- NOTE | 2016-11-29 11:22 | P.CRDCN ---
History of Present Illness Consult date: 11/29/16 Requesting physician: Kolton Ordoñez Reason for Consult (text): Abnormal troponins Chief complaint: lower back pain History of present illness: This is a 81-year-old female with past medical history significant for metastatic breast CA, hypertension, diabetes, hyperlipidemia, prior DVT, proximal atrial fibrillation, on ligand for anticoagulation. She was admitted to the hospital because symptoms of bilateral lower back pain with associated urinary incontinence and mild mental status changes. Patient denies having any chest pain. Cardiology consultation was requested because of abnormal troponin. Cuurently being treated with IV antibiotics for a UTI. EKG on arrival shows normal sinus rhythm with a right bundle branch block pattern. Chest x-ray does not reveal any acute cardiopulmonary process. CT of the brain reveals atrophy with periventricular white matter change. CT of the abdomen and pelvis reveals a 0.8 cm renal pelvis stone without obstruction. Sclerotic metastases within the osseous structures. Ultrasound shows a right renal pelvic stone. Blood pressure 144/70 with a heart rate in the 80s. 97.9 temperature 90.7 percent on room air. White blood cell count on admission 16, 000, 8.4 this morning. Hemoglobin 11.3. Potassium 4.7, BUN 28, creatinine 1.3. magnesium level 2.1, troponin 0.089. INR 1.2. Past Medical History Past Medical History: Cancer, Diabetes Mellitus, Deep Vein Thrombosis (DVT), Hyperlipidemia, Hypertension, Memory Impairment Additional Past Medical History / Comment(s): hx. 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 DVT leg years ago, uses walker, bone CA-sees dr hu, History of Any Multi-Drug Resistant Organisms: None Reported Past Surgical History: Breast Surgery, Cholecystectomy, Heart Catheterization, Tubal Ligation Additional Past Surgical History / Comment(s): right mastectomy, cataracts removed, excision of lesion rt cheek, steroid inj in past for heel spur Past Anesthesia/Blood Transfusion Reactions: No Reported Reaction Past Psychological History: No Psychological Hx Reported Additional Psychological History / Comment(s): lives alone in own home, uses a cane or walker to get around.recieves meals on wheels but no other outside services. Smoking Status: Never smoker Past Alcohol Use History: None Reported Past Drug Use History: None Reported - Past Family History Mother Family Medical History: Diabetes Mellitus Father Family Medical History: Congestive Heart Failure (CHF) Medications and Allergies Home Medications Medication Instructions Recorded Confirmed Type Anastrozole [Arimidex] 1 mg PO DAILY 05/14/15 11/26/16 History Cholecalciferol [Vitamin D3] 2,000 unit PO DAILY 05/14/15 11/26/16 History INSULIN LISPRO (humaLOG) [humaLOG 30 - 40 unit SQ AC-BID 11/26/16 11/26/16 History (formulary)] Warfarin [Coumadin] 3 mg PO TUTH 11/26/16 11/26/16 History glyBURIDE/METFORMIN HCL 2 tab PO BID 11/26/16 11/26/16 History [glyBURIDE/METFORMIN HCL 5-500 mg] Allergies Allergy/AdvReac Type Severity Reaction Status Date / Time codeine Allergy Abdominal Verified 11/26/16 13:46 Pain Physical Exam Vitals: Vital Signs Temp Pulse Resp BP Pulse Ox 11/29/16 09:18 97 11/29/16 08:00 97.9 F 88 18 145/70 97 11/29/16 04:00 67 16 140/64 94 L 11/29/16 00:00 74 16 115/64 98 11/28/16 20:00 97.4 F L 77 16 128/74 97 11/28/16 16:00 97.1 F L 70 16 130/64 98 11/28/16 12:00 81 16 118/56 97 Intake and Output 11/28/16 11/29/16 11/29/16 22:59 06:59 14:59 Intake Total 240 900 325 Balance 240 900 325 Intake: IV 900 Sodium Chloride 0.9% 1, 900 000 ml @ 75 mls/hr IV . [id number] [facility] Rx#:[id number] Oral 240 325 Other: Voiding Method Toilet Weight 92.1 kg 92.1 kg Patient Weight 11/30/16 06:59 Weight 92.1 kg PHYSICAL EXAMINATION: HEENT: Head is atraumatic, normocephalic. Pupils equal, round. Neck is supple. There is no elevated jugular venous pressure. HEART EXAMINATION: S1 and S2 systolic murmur is heard. CHEST EXAMINATION: Lungs are clear to auscultation and precussion. No chest wall tenderness is noted on palpation or with deep breathing. ABDOMEN: Soft, nontender. Bowel sounds are heard. No organomegaly noted. EXTREMITIES: 2+ peripheral pulses with no evidence of peripheral edema and no calf tenderness noted. NEUROLOGIC patient is awake, alert and oriented -3. . Results 11/29/16 06:50 11/29/16 06:50 Cardiac Enzymes 11/29/16 Range/Units 06:50 AST 20 (14-36) U/L Coagulation 11/29/16 Range/Units 06:50 PT 11.7 (9.0-12.0) sec CBC 11/29/16 Range/Units 06:50 WBC 8.4 (3.8-10.6) k/uL RBC 4.07 (3.80-5.40) m/uL Hgb 11.3 L (11.4-16.0) gm/dL Hct 35.6 (34.0-46.0) % Plt Count 282 (150-450) k/uL Comprehensive Metabolic Panel 11/29/16 Range/Units 06:50 Sodium 139 (137-145) mmol/L Potassium 4.7 (3.5-5.1) mmol/L Chloride 108 H (98-107) mmol/L Carbon Dioxide 21 L (22-30) mmol/L BUN 28 H (7-17) mg/dL Creatinine 1.34 H (0.52-1.04) mg/dL Glucose 200 H (74-99) mg/dL Calcium 10.0 (8.4-10.2) mg/dL AST 20 (14-36) U/L ALT 40 (9-52) U/L Alkaline Phosphatase 73 (38-126) U/L Total Protein 6.3 (6.3-8.2) g/dL Albumin 3.0 L (3.5-5.0) g/dL Current Medications Generic Name Dose Route Start Last Admin Trade Name Freq PRN Reason Stop Dose Admin Acetaminophen 650 mg 11/28/16 09:18 11/29/16 08:28 Tylenol Tab PO 650 mg Q6HR PRN Administration Fever and/ or Mild Pain Anastrozole 1 mg 11/28/16 09:30 11/29/16 08:29 Arimidex PO 1 mg DAILY [facility] Administration Cholecalciferol 2,000 unit 11/28/16 09:30 11/29/16 08:29 Vitamin D3 PO 2,000 unit DAILY [facility] Administration Enoxaparin Sodium 100 mg 11/28/16 21:00 11/29/16 08:28 Lovenox SQ 100 mg Q12HR [place] Administration Sodium Chloride 1,000 mls @ 75 mls/hr 11/26/16 16:15 11/29/16 10:07 Saline 0.9% IV 75 mls/hr .[id number] [place] Administration Ceftriaxone Sodium 1,000 mg/ 50 mls @ 100 mls/hr 11/27/16 09:00 11/29/16 08: 29 Sodium Chloride IVPB 100 mls/hr Q24HR [facility] Administration Insulin Human Lispro 0 unit 11/27/16 07:30 11/29/16 06:52 Humalog SQ 2 unit ACHS [facility] Administration Protocol Metoprolol Tartrate 25 mg 11/28/16 09:30 11/29/16 08:29 Lopressor PO 25 mg BID [facility] Administration Morphine Sulfate 4 mg 11/26/16 16:08 Morphine Sulfate (Inj) IV Q4HR PRN Severe Pain Naloxone HCl 0.2 mg 11/26/16 16:08 Narcan IV Q2M PRN Opioid Reversal Tramadol HCl 50 mg 11/26/16 16:08 Ultram PO Q6H PRN Moderate Pain Intake and Output 11/28/16 11/29/16 11/29/16 22:59 06:59 14:59 Intake Total 240 900 325 Balance 240 900 325 Intake: IV 900 Sodium Chloride 0.9% 1, 900 000 ml @ 75 mls/hr IV . [id number] [facility] Rx#:[id number] Oral 240 325 Other: Voiding Method Toilet Weight 92.1 kg 92.1 kg Patient Weight 11/30/16 06:59 Weight 92.1 kg 11/29/16 06:50 11/29/16 06:50 EKG Interpretations (text) EKG shows normal sinus rhythm with PACs, right bundle branch block pattern. Assessment and Plan Plan: Assessment and plan #1 acute renal failure, patient currently on IV fluids. #2 UTI, urine culture growing gram-negative bacilli. Currently on IV antibiotics. #3 abnormal troponin, likely secondary to abnormal renal function. Patient denies having any chest pain. EKG shows a normal sinus rhythm with a right bundle branch block pattern. #4 paroxysmal atrial fibrillation and prior DVT, on Coumadin #5 history of metastatic breast cancer #6 mental status changes, could be secondary to UTI. Oncology also consulted. #7 diabetes #8 hypertension #9 hyperlipidemia Plan We will obtain 2 subsequent troponins, obtain an echocardiogram with Doppler study. Patient's abnormal troponin is likely secondary to abnormal renal function. Continue beta perfecto. Further recommendations to follow. DNP note has been reviewed, I agree with a documented findings and plan of care. Patient was seen and examined.
[2016-11-29 11:39] LABS: Glucose,Whole Blood 263 mg/dL (75-99)
[2016-11-29 16:27] LABS: Glucose,Whole Blood 188 mg/dL (75-99)
--- NOTE | 2016-11-29 17:31 | P.PN ---
Subjective Patient presented with generalized weakness and mental status changes. She was found to have Evidence of a UTI. She also had reported lower back pain. And was found to have evidence of kidney stone. She currently on IV Rocephin. Evaluated by urology. The plan is for shockwave lithotripsy outpatient. Patient reports improvement in her back pain. Denies any burning with urination. Denies any chest pain or shortness breath. On review of systems Denies any nausea or vomiting. Last bowel movement 2 days ago. Her mentation has shown improvement. Patient is been fluctuating between sinus rhythm and atrial flutter. Her metoprolol will be restarted Objective - Vital Signs Vital signs: Vital Signs Temp 98.0 F 11/29/16 15:15 Pulse 85 11/29/16 15:34 Resp 18 11/29/16 15:34 BP 132/61 11/29/16 15:15 Pulse Ox 98 11/29/16 15:15 Intake & Output 11/28/16 11/29/16 11/29/16 18:59 06:59 18:59 Intake Total 3513 464 9017 Output Total 450 Balance 1510 900 565 Weight 92.1 kg 92.1 kg Intake: IV 450 900 300 Sodium Chloride 0.9% 1, 450 900 300 000 ml @ 75 mls/hr IV . [id number] [facility] Rx#:[id number] Intake, IV Titration 100 50 Amount cefTRIAXone 1,000 mg In 100 50 Sodium Chloride 0.9% 50 ml @ 100 mls/hr IVPB Q24HR [facility] Rx#:[id number] Oral 960 665 Output: Urine 450 Other: Voiding Method Toilet # Voids 2 - Labs CBC & Chem 7: 11/29/16 06:50 11/29/16 06:50 Labs: Abnormal Lab Results - Last 24 Hours (Table) 11/28/16 11/29/16 11/29/16 Range/Units 20:39 06:13 06:50 Hgb 11.3 L (11.4-16.0) gm/dL Lymphocytes # 0.8 L (1.0-4.8) k/uL Chloride (98-107) mmol/L Carbon Dioxide (22-30) mmol/L BUN (7-17) mg/dL Creatinine (0.52-1.04) mg/dL Glucose (74-99) mg/dL POC Glucose (mg/dL) 306 H 193 H (75-99) mg/dL Albumin (3.5-5.0) g/dL 11/29/16 11/29/16 11/29/16 Range/Units 06:50 11:37 16:25 Hgb (11.4-16.0) gm/dL Lymphocytes # (1.0-4.8) k/uL Chloride 108 H (98-107) mmol/L Carbon Dioxide 21 L (22-30) mmol/L BUN 28 H (7-17) mg/dL Creatinine 1.34 H (0.52-1.04) mg/dL Glucose 200 H (74-99) mg/dL POC Glucose (mg/dL) 263 H 188 H (75-99) mg/dL Albumin 3.0 L (3.5-5.0) g/dL Assessment and Plan Plan: #1 acute renal failure, likely related to dehydration and prerenal azotemia patient was started on IV fluid Will monitor closely #2 urinary tract infection, patient was started on IV Rocephin in the emergency room awaiting urine culture results #3 right renal pelvis kidney stone, will obtain ultrasound of the kidneys will consult urology #4 underlying history of atrial fibrillation maintained on Coumadin INR is subtherapeutic, will give Coumadin 7.5 mg today continue bridging was Lovenox until Coumadin is therapeutic #5 underlying history of metastatic breast cancer, patient is complaining of severe pain in her back Will consult oncology #6 mental status changes may be related to urinary tract infection and dehydration, however if not improving in the next few days will discuss with oncology needs for brain MRI to rule out metastatic brain disease. Will follow closely during this hospitalization please see orders
[2016-11-29] MEDS ORDERED: WARFARIN 7.5 MG TAB PO ONE (18:00)
[2016-11-29 20:52] LABS: Glucose,Whole Blood 275 mg/dL (75-99)
[2016-11-30] MEDS: SODIUM CHLORIDE 0.9% 1,000 ML IV SCH ×2 (01:39→14:47)
[2016-11-30] MEDS: ACETAMINOPHEN TAB 325 MG TAB PO PRN ×2 (04:21→21:06)
[2016-11-30 06:26] LABS: Glucose,Whole Blood 182 mg/dL (75-99)
[2016-11-30] MEDS: INSULIN LISPRO (humaLOG) 300 UNIT/3 ML VIAL SQ SCH ×4 (06:35→21:05)
[2016-11-30 06:42] LABS: Basophils % (A) 1 %; CHCM 31.3; Eosinophils # (A) 0.2 k/uL (0-0.7); Eosinophils % (A) 2 %; HCT 34.6 % (34.0-46.0); HDW 2.71; Hypochromasia Slight; Luc % (Auto) 3; Lymphocytes # (A) 0.7 k/uL (1.0-4.8); Lymphocytes % (A) 8 %; MCH 27.5 pg (25.0-35.0); MCHC 31.7 g/dL (31.0-37.0); MCV 86.9 fL (80.0-100.0); Mean Platelet Volume 6.7; Monocytes # (A) 0.7 k/uL (0-1.0); Monocytes % (A) 8 %; Neutrophils # (A) 6.8 k/uL (1.3-7.7); Neutrophils % (A) 78 %; RBC 3.98 m/uL (3.80-5.40); RDW 14.4 % (11.5-15.5); WBC 8.7 k/uL (3.8-10.6); WBC (Perox) 8.72
[2016-11-30 06:45] LABS: INR 1.3 (<1.1); Prothrombin Time 12.8 sec (9.0-12.0)
[2016-11-30 06:54] LABS: Calcium 9.7 mg/dL (8.4-10.2); Potassium 4.6 mmol/L (3.5-5.1); Total Bilirubin 0.4 mg/dL (0.2-1.3); Total Protein 5.7 g/dL (6.3-8.2)
[2016-11-30] MEDS: ENOXAPARIN 100 MG/ML SYRINGE SQ SCH (08:04)
[2016-11-30] MEDS: METOPROLOL TARTRATE 25 MG TAB PO SCH ×2 (08:04→21:05)
[2016-11-30] MEDS: ANASTROZOLE 1 MG TAB PO SCH (08:04)
[2016-11-30] MEDS: CHOLECALCIFEROL 1,000 UNIT TAB PO SCH (08:04)
[2016-11-30 12:11] LABS: Glucose,Whole Blood 263 mg/dL (75-99)
--- NOTE | 2016-11-30 15:18 | P.PN ---
Subjective Principal diagnosis: AbNormal troponins This is a 81-year-old female with past medical history significant for metastatic breast CA, hypertension, diabetes, hyperlipidemia, prior DVT, proximal atrial fibrillation, on Coumadin for anticoagulation. She was admitted to the hospital because symptoms of bilateral lower back pain with associated urinary incontinence and mild mental status changes. Patient denies having any chest pain. Cardiology consultation was requested because of abnormal troponin. Currently being treated with IV antibiotics for a UTI. EKG on arrival shows normal sinus rhythm with a right bundle branch block pattern. Chest x-ray does not reveal any acute cardiopulmonary process. CT of the brain reveals atrophy with periventricular white matter change. CT of the abdomen and pelvis reveals a 0.8 cm renal pelvis stone without obstruction. Sclerotic metastases within the osseous structures. Ultrasound shows a right renal pelvic stone. Blood pressure 142/70 with a heart rate in the 80s. 97.9 temperature 97 percent on room air. White blood cell count on admission 8.7 this morning. Hemoglobin 11.. Potassium 4.6, BUN 22, creatinine 1.2. magnesium level 2.1, troponin 0.089 0.013, 0.013.. INR 1.3. Objective - Vital Signs Vital signs: Vital Signs Temp 98.3 F 11/30/16 11:31 Pulse 82 11/30/16 11:31 Resp 18 11/30/16 11:31 BP 143/70 11/30/16 11:31 Pulse Ox 97 11/30/16 11:31 Intake & Output 11/29/16 11/30/16 11/30/16 18:59 06:59 18:59 Intake Total 3583 914 2902 Output Total 450 500 Balance 565 900 730 Weight 92.1 kg 93.7 kg Intake: IV 300 900 300 Sodium Chloride 0.9% 1, 300 900 300 000 ml @ 75 mls/hr IV . [id number] [facility] Rx#:[id number] Intake, IV Titration 50 50 Amount cefTRIAXone 1,000 mg In 50 50 Sodium Chloride 0.9% 50 ml @ 100 mls/hr IVPB Q24HR [facility] Rx#:[id number] Oral 665 880 Output: Urine 450 500 Other: Voiding Method Toilet Toilet # Voids 2 3 - Exam PHYSICAL EXAMINATION: HEENT: Head is atraumatic, normocephalic. Pupils equal, round. Neck is supple. There is no elevated jugular venous pressure. HEART EXAMINATION: S1 and S2 systolic murmur is heard. CHEST EXAMINATION: Lungs are clear to auscultation and precussion. No chest wall tenderness is noted on palpation or with deep breathing. ABDOMEN: Soft, nontender. Bowel sounds are heard. No organomegaly noted. EXTREMITIES: 2+ peripheral pulses with no evidence of peripheral edema and no calf tenderness noted. NEUROLOGIC patient is awake, alert and oriented -3. . - Labs CBC & Chem 7: 11/30/16 05:57 11/30/16 05:57 Labs: Abnormal Lab Results - Last 24 Hours (Table) 11/29/16 11/29/16 11/30/16 Range/Units 16:25 20:51 05:57 Hgb 11.0 L (11.4-16.0) gm/dL Lymphocytes # 0.7 L (1.0-4.8) k/uL PT (9.0-12.0) sec Chloride (98-107) mmol/L BUN (7-17) mg/dL Creatinine (0.52-1.04) mg/dL Glucose (74-99) mg/dL POC Glucose (mg/dL) 188 H 275 H (75-99) mg/dL Total Protein (6.3-8.2) g/dL Albumin (3.5-5.0) g/dL 11/30/16 11/30/16 11/30/16 Range/Units 05:57 05:57 06:24 Hgb (11.4-16.0) gm/dL Lymphocytes # (1.0-4.8) k/uL PT 12.8 H (9.0-12.0) sec Chloride 111 H (98-107) mmol/L BUN 22 H (7-17) mg/dL Creatinine 1.21 H (0.52-1.04) mg/dL Glucose 167 H (74-99) mg/dL POC Glucose (mg/dL) 182 H (75-99) mg/dL Total Protein 5.7 L (6.3-8.2) g/dL Albumin 2.7 L (3.5-5.0) g/dL 11/30/16 Range/Units 12:08 Hgb (11.4-16.0) gm/dL Lymphocytes # (1.0-4.8) k/uL PT (9.0-12.0) sec Chloride (98-107) mmol/L BUN (7-17) mg/dL Creatinine (0.52-1.04) mg/dL Glucose (74-99) mg/dL POC Glucose (mg/dL) 263 H (75-99) mg/dL Total Protein (6.3-8.2) g/dL Albumin (3.5-5.0) g/dL Assessment and Plan Plan: Assessment and plan #1 acute renal failure, patient currently on IV fluids. #2 UTI, urine culture growing gram-negative bacilli. Currently on IV antibiotics. #3 abnormal troponin, likely secondary to abnormal renal function. Patient denies having any chest pain. EKG shows a normal sinus rhythm with a right bundle branch block pattern. #4 paroxysmal atrial fibrillation and prior DVT, on Coumadin #5 history of metastatic breast cancer #6 mental status changes, could be secondary to UTI. Oncology also consulted. #7 diabetes #8 hypertension #9 hyperlipidemia Plan Subsequent troponins were negative. Echocardiogram with Doppler study remains pending. If the echo shows normal left ventricular systolic function. We will follow this patient with you now on an as-needed basis only. Please don't hesitate to call with any questions. DNP note has been reviewed, I agree with a documented findings and plan of care. Patient was seen and examined.
[2016-11-30 16:38] LABS: Glucose,Whole Blood 252 mg/dL (75-99)
--- NOTE | 2016-11-30 17:50 | P.PN ---
Subjective Patient presented with generalized weakness and mental status changes. She was found to have Evidence of a UTI. She also had reported lower back pain. And was found to have evidence of kidney stone. She currently on IV Rocephin. Evaluated by urology. The plan is for shockwave lithotripsy outpatient. Patient reports improvement in her back pain. Denies any burning with urination. Denies any chest pain or shortness breath. On review of systems Denies any nausea or vomiting. Last bowel movement 2 days ago. Her mentation has shown improvement. Patient is been fluctuating between sinus rhythm and atrial flutter. Her metoprolol will be restarted Objective - Vital Signs Vital signs: Vital Signs Temp 97.9 F 11/30/16 16:00 Pulse 84 11/30/16 16:00 Resp 18 11/30/16 16:00 BP 136/66 11/30/16 16:00 Pulse Ox 97 11/30/16 16:00 Intake & Output 11/29/16 11/30/16 11/30/16 18:59 06:59 18:59 Intake Total 1793 451 6949 Output Total 450 500 Balance 565 900 730 Weight 92.1 kg 93.7 kg Intake: IV 300 900 300 Sodium Chloride 0.9% 1, 300 900 300 000 ml @ 75 mls/hr IV . [id number] [facility] Rx#:[id number] Intake, IV Titration 50 50 Amount cefTRIAXone 1,000 mg In 50 50 Sodium Chloride 0.9% 50 ml @ 100 mls/hr IVPB Q24HR [facility] Rx#:[id number] Oral 665 880 Output: Urine 450 500 Other: Voiding Method Toilet Toilet # Voids 2 3 - Exam HEENT head normocephalic and atraumatic Neck is supple no JVD no goiter no lymphadenopathy Chest is clear to auscultation no wheezing Cardiac exam reveals regular heart sounds no gallops no murmurs Abdomen is soft nontender no organomegaly Extremity exam reveals 2+ edema - Labs CBC & Chem 7: 11/30/16 05:57 11/30/16 05:57 Labs: Abnormal Lab Results - Last 24 Hours (Table) 11/29/16 11/30/16 11/30/16 Range/Units 20:51 05:57 05:57 Hgb 11.0 L (11.4-16.0) gm/dL Lymphocytes # 0.7 L (1.0-4.8) k/uL PT 12.8 H (9.0-12.0) sec Chloride (98-107) mmol/L BUN (7-17) mg/dL Creatinine (0.52-1.04) mg/dL Glucose (74-99) mg/dL POC Glucose (mg/dL) 275 H (75-99) mg/dL Total Protein (6.3-8.2) g/dL Albumin (3.5-5.0) g/dL 11/30/16 11/30/16 11/30/16 Range/Units 05:57 06:24 12:08 Hgb (11.4-16.0) gm/dL Lymphocytes # (1.0-4.8) k/uL PT (9.0-12.0) sec Chloride 111 H (98-107) mmol/L BUN 22 H (7-17) mg/dL Creatinine 1.21 H (0.52-1.04) mg/dL Glucose 167 H (74-99) mg/dL POC Glucose (mg/dL) 182 H 263 H (75-99) mg/dL Total Protein 5.7 L (6.3-8.2) g/dL Albumin 2.7 L (3.5-5.0) g/dL 11/30/16 Range/Units 16:33 Hgb (11.4-16.0) gm/dL Lymphocytes # (1.0-4.8) k/uL PT (9.0-12.0) sec Chloride (98-107) mmol/L BUN (7-17) mg/dL Creatinine (0.52-1.04) mg/dL Glucose (74-99) mg/dL POC Glucose (mg/dL) 252 H (75-99) mg/dL Total Protein (6.3-8.2) g/dL Albumin (3.5-5.0) g/dL Assessment and Plan Plan: #1 acute renal failure, likely related to dehydration and prerenal azotemia patient was started on IV fluid Will monitor closely #2 urinary tract infection, patient was started on IV Rocephin in the emergency room awaiting urine culture results #3 right renal pelvis kidney stone, will obtain ultrasound of the kidneys will consult urology #4 underlying history of atrial fibrillation maintained on Coumadin INR is subtherapeutic, will give Coumadin 7.5 mg today continue bridging was Lovenox until Coumadin is therapeutic #5 underlying history of metastatic breast cancer, patient is complaining of severe pain in her back Will consult oncology #6 mental status changes may be related to urinary tract infection and dehydration, improved patient is back to her baseline At this time will decrease IV fluid to KVO Will follow closely
[2016-11-30 20:19] LABS: Glucose,Whole Blood 245 mg/dL (75-99)
[2016-12-01] MEDS: SODIUM CHLORIDE 0.9% 1,000 ML IV SCH (03:29)
[2016-12-01 05:57] LABS: Glucose,Whole Blood 186 mg/dL (75-99)
[2016-12-01 06:30] LABS: Basophils # (A) 0.1 k/uL (0-0.2); Basophils % (A) 1 %; CH 26.4; CHCM 30.2; Eosinophils # (A) 0.3 k/uL (0-0.7); Eosinophils % (A) 4 %; HCT 34.5 % (34.0-46.0); HDW 2.61; HGB 10.4 gm/dL (11.4-16.0); Hypochromasia Moderate; Luc # (Auto) 0.25; Luc % (Auto) 3; Lymphocytes # (A) 0.8 k/uL (1.0-4.8); Lymphocytes % (A) 10 %; MCH 26.4 pg (25.0-35.0); MCHC 30.1 g/dL (31.0-37.0); MCV 87.9 fL (80.0-100.0); Mean Platelet Volume 6.4; Monocytes # (A) 0.6 k/uL (0-1.0); Monocytes % (A) 7 %; Neutrophils # (A) 6.4 k/uL (1.3-7.7); Neutrophils % (A) 76 %; RBC 3.92 m/uL (3.80-5.40); RDW 14.6 % (11.5-15.5); WBC 8.4 k/uL (3.8-10.6); WBC (Perox) 8.42
[2016-12-01 06:36] LABS: Calcium 9.7 mg/dL (8.4-10.2); Potassium 4.9 mmol/L (3.5-5.1); Total Bilirubin 0.4 mg/dL (0.2-1.3); Total Protein 5.7 g/dL (6.3-8.2)
[2016-12-01 06:38] LABS: INR 1.2 (<1.1); Prothrombin Time 11.7 sec (9.0-12.0)
[2016-12-01] MEDS: INSULIN LISPRO (humaLOG) 300 UNIT/3 ML VIAL SQ SCH ×4 (07:15→21:00)
[2016-12-01] MEDS ORDERED: FUROSEMIDE 10 MG/ML 2 ML VIAL IV ONE (08:00)
[2016-12-01] MEDS: METOPROLOL TARTRATE 25 MG TAB PO SCH ×2 (08:11→21:00)
[2016-12-01] MEDS: ANASTROZOLE 1 MG TAB PO SCH (08:11)
[2016-12-01] MEDS: CHOLECALCIFEROL 1,000 UNIT TAB PO SCH (08:11)
[2016-12-01] MEDS: ENOXAPARIN 100 MG/ML SYRINGE SQ SCH (08:12)
[2016-12-01] MEDS: ACETAMINOPHEN TAB 325 MG TAB PO PRN ×2 (12:30→21:05)
--- NOTE | 2016-12-01 13:43 | P.PN ---
Subjective Patient presented with generalized weakness and mental status changes. She was found to have Evidence of a UTI. She also had reported lower back pain. And was found to have evidence of kidney stone. She currently on IV Rocephin. Evaluated by urology. The plan is for shockwave lithotripsy outpatient. Patient reports improvement in her back pain. Denies any burning with urination. Denies any chest pain or shortness breath. Denies any nausea or vomiting. Last bowel movement 2 days ago. Her mentation has shown improvement. Patient is been fluctuating between sinus rhythm and atrial flutter. Her metoprolol will be restarted 12/01/2016 patient reporting still having some back pain. Patient would like to have this shockwave lithotripsy completed during her hospitalization. Awaiting urology recommendations. Objective - Vital Signs Vital signs: Vital Signs Temp 97.9 F 12/01/16 08:00 Pulse 90 12/01/16 12:00 Resp 18 12/01/16 12:00 BP 158/72 12/01/16 08:00 Pulse Ox 93 L 12/01/16 08:00 Intake & Output 11/30/16 12/01/16 12/01/16 18:59 06:59 18:59 Intake Total 1650 450 480 Output Total 900 400 Balance 750 50 480 Weight 84.8 kg 84.8 kg Intake: IV 300 450 Sodium Chloride 0.9% 1, 300 450 000 ml @ 75 mls/hr IV . [id number] [facility] Rx#:[id number] Intake, IV Titration 50 Amount cefTRIAXone 1,000 mg In 50 Sodium Chloride 0.9% 50 ml @ 100 mls/hr IVPB Q24HR [facility] Rx#:[id number] Oral 1300 0 480 Output: Urine 900 400 Other: Voiding Method Toilet Toilet Toilet # Voids 3 2 1 # Bowel Movements 1 1 1 - Exam Head normocephalic Neck supple Lungs clear to auscultation bilaterally no wheezing or crackles Heart regular rate and rhythm S1-S2, no rub or gallop Abdomen is soft nontender nondistended positive bowel sounds no hepatosplenomegaly Extremities no edema Neuro alert and orientated to 3 - Labs CBC & Chem 7: 12/01/16 06:02 12/01/16 06:02 Labs: Abnormal Lab Results - Last 24 Hours (Table) 11/30/16 11/30/1611/30/17 Range/Units 16:33 20:18 22:33 Hgb (11.4-16.0) gm/dL MCHC (31.0-37.0) g/dL Lymphocytes # (1.0-4.8) k/uL Chloride (98-107) mmol/L BUN (7-17) mg/dL Creatinine (0.52-1.04) mg/dL Glucose (74-99) mg/dL POC Glucose (mg/dL) 252 H 245 H (75-99) mg/dL ALT (9-52) U/L Troponin I 0.360 H* (0.000-0.034) ng/mL Total Protein (6.3-8.2) g/dL Albumin (3.5-5.0) g/dL 12/01/16 12/01/16 12/01/16 Range/Units 05:56 06:02 06:02 Hgb 10.4 L (11.4-16.0) gm/dL MCHC 30.1 L (31.0-37.0) g/dL Lymphocytes # 0.8 L (1.0-4.8) k/uL Chloride 109 H (98-107) mmol/L BUN 20 H (7-17) mg/dL Creatinine 1.07 H (0.52-1.04) mg/dL Glucose 191 H (74-99) mg/dL POC Glucose (mg/dL) 186 H (75-99) mg/dL ALT 60 H (9-52) U/L Troponin I (0.000-0.034) ng/mL Total Protein 5.7 L (6.3-8.2) g/dL Albumin 2.7 L (3.5-5.0) g/dL Assessment and Plan Plan: #1 acute renal failure, likely related to dehydration and prerenal azotemia. Patient given IV fluids. Creatinine trending down to 1.07. Continue to monitor. #2 urinary tract infection: Urine culture growing pantoea agglomerans. Continue with IV Rocephin #3 right renal pelvis kidney stone: Patient evaluated by urology and they're planning for possible shockwave lithotripsy outpatient. UTI needs to be treated and patient is to be off of Coumadin for 7 days prior to procedure. Ultrasound of kidneys had shown a mild left hydro-nephrosis and minimal debris/ blood in bladder. Awaiting urology's recommendations in regards to completing the lithotripsy on Monday during her hospitalization #4 underlying history of atrial fibrillation maintained on Coumadin. INR subtherapeutic at 1.2. Continue coverage with Lovenox #5 underlying history of metastatic breast cancer, patient is complaining of severe pain in her back Will consult oncology #6 acute mental status changes , likely a metabolic encephalopathy secondary to urinary tract infection and dehydration. CT scan of the brain showed no metastatic disease. And patient back to baseline I performed an examination of the patient and discussed their management with the physician Cigarette Filter Inspector. I have reviewed the Physician Cigarette Filter Inspector's notes and agree with the documented findings and plan of care
[2016-12-01 13:49] LABS: Glucose,Whole Blood 362 mg/dL (75-99)
[2016-12-01 16:51] LABS: Glucose,Whole Blood 386 mg/dL (75-99)
[2016-12-01 20:14] LABS: Glucose,Whole Blood 371 mg/dL (75-99)
--- NOTE | 2016-12-01 21:37 | P.PN ---
Subjective The pt overall looks better. She still c/o pain, but was ambulate in the corridor with a walker. She was quite comfortable at rest Objective - Vital Signs Vital signs: Vital Signs Temp 98.1 F 12/01/16 14:59 Pulse 82 12/01/16 15:55 Resp 18 12/01/16 15:55 BP 145/63 12/01/16 14:59 Pulse Ox 98 12/01/16 14:59 Intake & Output 12/01/16 12/01/16 12/02/16 06:59 18:59 06:59 Intake Total 450 1245 Output Total 400 Balance 50 1245 Weight 84.8 kg 84.8 kg Intake: IV 450 525 Sodium Chloride 0.9% 1, 450 525 000 ml @ 75 mls/hr IV . [id number] [facility] Rx#:[id number] Oral 0 720 Output: Urine 400 Other: Voiding Method Toilet Toilet # Voids 2 1 # Bowel Movements 1 1 - Constitutional General appearance: Present: no acute distress - EENT Eyes: Present: EOMI, PERRLA ENT: Present: hearing grossly normal, normal oropharynx - Respiratory Respiratory: bilateral: CTA - Cardiovascular Rhythm: regular Heart sounds: normal: S1, S2 - Gastrointestinal General gastrointestinal: Present: normal bowel sounds, soft - Integumentary Integumentary: Present: normal - Neurologic Neurologic: Present: CNII-XII intact - Musculoskeletal Musculoskeletal: Present: strength equal bilaterally - Psychiatric Psychiatric: Present: A&O x's 3, appropriate affect - Labs CBC & Chem 7: 12/01/16 06:02 12/01/16 06:02 Labs: Abnormal Lab Results - Last 24 Hours (Table) 11/30/16 12/01/16 12/01/16 Range/Units 22:33 05:56 06:02 Hgb 10.4 L (11.4-16.0) gm/dL MCHC 30.1 L (31.0-37.0) g/dL Lymphocytes # 0.8 L (1.0-4.8) k/uL Chloride (98-107) mmol/L BUN (7-17) mg/dL Creatinine (0.52-1.04) mg/dL Glucose (74-99) mg/dL POC Glucose (mg/dL) 186 H (75-99) mg/dL ALT (9-52) U/L Troponin I 0.360 H* (0.000-0.034) ng/mL Total Protein (6.3-8.2) g/dL Albumin (3.5-5.0) g/dL 12/01/16 12/01/16 12/01/16 Range/Units 06:02 13:43 16:49 Hgb (11.4-16.0) gm/dL MCHC (31.0-37.0) g/dL Lymphocytes # (1.0-4.8) k/uL Chloride 109 H (98-107) mmol/L BUN 20 H (7-17) mg/dL Creatinine 1.07 H (0.52-1.04) mg/dL Glucose 191 H (74-99) mg/dL POC Glucose (mg/dL) 362 H 386 H (75-99) mg/dL ALT 60 H (9-52) U/L Troponin I (0.000-0.034) ng/mL Total Protein 5.7 L (6.3-8.2) g/dL Albumin 2.7 L (3.5-5.0) g/dL 12/01/16 Range/Units 20:13 Hgb (11.4-16.0) gm/dL MCHC (31.0-37.0) g/dL Lymphocytes # (1.0-4.8) k/uL Chloride (98-107) mmol/L BUN (7-17) mg/dL Creatinine (0.52-1.04) mg/dL Glucose (74-99) mg/dL POC Glucose (mg/dL) 371 H (75-99) mg/dL ALT (9-52) U/L Troponin I (0.000-0.034) ng/mL Total Protein (6.3-8.2) g/dL Albumin (3.5-5.0) g/dL Assessment and Plan (1) 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 Her pain is mostly in the mid back, in the CV area, and is diminished. Review of the scan reports does not show any definite evidence of progression. Continue same regimen Status: Chronic (2) Urinary tract infection Narrative/Plan: Pt is improved with treatment for the same. Case d/w IM. She is felt to be OK to discharge from the Onc standpoint Status: Acute
[2016-12-02 02:23] LABS: Glucose,Whole Blood 235 mg/dL (75-99)
[2016-12-02] MEDS: SODIUM CHLORIDE 0.9% 1,000 ML IV SCH ×2 (06:19→07:45)
[2016-12-02 06:50] LABS: Glucose,Whole Blood 225 mg/dL (75-99)
[2016-12-02 08:18] LABS: Basophils # (A) 0.1 k/uL (0-0.2); Basophils % (A) 1 %; CH 26.4; CHCM 30.7; Eosinophils # (A) 0.3 k/uL (0-0.7); Eosinophils % (A) 3 %; HCT 34.7 % (34.0-46.0); HDW 2.61; HGB 10.8 gm/dL (11.4-16.0); Hypochromasia Moderate; INR 1.1 (<1.1); Luc # (Auto) 0.27; Luc % (Auto) 3; Lymphocytes % (A) 10 %; MCH 26.8 pg (25.0-35.0); MCV 86.3 fL (80.0-100.0); Mean Platelet Volume 6.8; Monocytes # (A) 0.6 k/uL (0-1.0); Monocytes % (A) 6 %; Neutrophils # (A) 7.8 k/uL (1.3-7.7); Neutrophils % (A) 77 %; Prothrombin Time 11.1 sec (9.0-12.0); RBC 4.02 m/uL (3.80-5.40); RDW 14.5 % (11.5-15.5); WBC 10.1 k/uL (3.8-10.6); WBC (Perox) 10.65
[2016-12-02 08:26] LABS: Calcium 10.4 mg/dL (8.4-10.2); Potassium 4.9 mmol/L (3.5-5.1)
[2016-12-02] MEDS: METOPROLOL TARTRATE 25 MG TAB PO SCH ×2 (08:53→21:08)
[2016-12-02] MEDS: CHOLECALCIFEROL 1,000 UNIT TAB PO SCH (08:53)
[2016-12-02] MEDS: ANASTROZOLE 1 MG TAB PO SCH (08:53)
[2016-12-02] MEDS: ENOXAPARIN 100 MG/ML SYRINGE SQ SCH (08:53)
[2016-12-02] MEDS: INSULIN LISPRO (humaLOG) 300 UNIT/3 ML VIAL SQ SCH ×4 (08:56→21:08)
--- NOTE | 2016-12-02 11:22 | P.PN ---
Subjective Patient presented with generalized weakness and mental status changes. She was found to have Evidence of a UTI. She also had reported lower back pain. And was found to have evidence of kidney stone. She currently on IV Rocephin. Evaluated by urology. The plan is for shockwave lithotripsy outpatient. Patient reports improvement in her back pain. Denies any burning with urination. Denies any chest pain or shortness breath. Denies any nausea or vomiting. Last bowel movement 2 days ago. Her mentation has shown improvement. Patient is been fluctuating between sinus rhythm and atrial flutter. Her metoprolol will be restarted 12/01/2016 patient reporting still having some back pain. Patient would like to have this shockwave lithotripsy completed during her hospitalization. Awaiting urology recommendations. 12/02/2016 patient reports some improvement in her back pain. She has a chest pain or shortness of breath. Denies any nausea or vomiting. Denies any burning with urination. Discussed case with urology office and they will be proceeding with shockwave lithotripsy on Monday for patient in regards to her kidney stone. Patient's fluids hep-locked she did receive 1 dose of Lasix yesterday. Objective - Vital Signs Vital signs: Vital Signs Temp 98.4 F 12/02/16 07:00 Pulse 88 12/02/16 07:00 Resp 18 12/02/16 07:00 BP 178/79 12/02/16 07:00 Pulse Ox 94 L 12/02/16 07:00 Intake & Output 12/01/16 12/02/16 12/02/16 18:59 06:59 18:59 Intake Total 1245 600 Output Total 400 Balance 1245 200 Weight 84.8 kg 84.8 kg Intake: IV 525 600 Sodium Chloride 0.9% 1, 525 600 000 ml @ 75 mls/hr IV . [id number] [facility] Rx#:[id number] Oral 720 Output: Urine 400 Other: Voiding Method Toilet Toilet Toilet # Voids 1 1 1 # Bowel Movements 1 - Exam Head normocephalic Neck supple Lungs clear to auscultation bilaterally no wheezing or crackles Heart regular rate and rhythm S1-S2, no rub or gallop Abdomen is soft nontender nondistended positive bowel sounds no hepatosplenomegaly Extremities no edema Neuro alert and orientated to 3 - Labs CBC & Chem 7: 12/02/16 07:36 12/02/16 07:36 Labs: Abnormal Lab Results - Last 24 Hours (Table) 12/01/16 12/01/16 12/01/16 Range/Units 13:43 16:49 20:13 Hgb (11.4-16.0) gm/dL Neutrophils # (1.3-7.7) k/uL BUN (7-17) mg/dL Creatinine (0.52-1.04) mg/dL Glucose (74-99) mg/dL POC Glucose (mg/dL) 362 H 386 H 371 H (75-99) mg/dL Calcium (8.4-10.2) mg/dL 12/02/16 12/02/16 12/02/16 Range/Units 02:21 06:49 07:36 Hgb 10.8 L (11.4-16.0) gm/dL Neutrophils # 7.8 H (1.3-7.7) k/uL BUN (7-17) mg/dL Creatinine (0.52-1.04) mg/dL Glucose (74-99) mg/dL POC Glucose (mg/dL) 235 H 225 H (75-99) mg/dL Calcium (8.4-10.2) mg/dL 12/02/16 Range/Units 07:36 Hgb (11.4-16.0) gm/dL Neutrophils # (1.3-7.7) k/uL BUN 20 H (7-17) mg/dL Creatinine 1.12 H (0.52-1.04) mg/dL Glucose 242 H (74-99) mg/dL POC Glucose (mg/dL) (75-99) mg/dL Calcium 10.4 H (8.4-10.2) mg/dL Assessment and Plan Plan: #1 acute renal failure, likely related to dehydration and prerenal azotemia. Patient given IV fluids. Creatinine 1.12. Continue to monitor. #2 urinary tract infection: Urine culture growing pantoea agglomerans. Continue with IV Rocephin #3 right renal pelvis kidney stone: Urology is planning shockwave lithotripsy on Monday for patient. Continue to hold Coumadin. #4 underlying history of paroxysmal atrial fibrillation maintained on Coumadin. Coumadin currently on hold. INR 1.1. Continue Lovenox for anticoagulation #5 underlying history of metastatic breast cancer, patient is complaining of severe pain in her back. Evaluated by oncology. No further recommendations. #6 acute mental status changes , likely a metabolic encephalopathy secondary to urinary tract infection and dehydration. CT scan of the brain showed no metastatic disease. And patient back to baseline #7 diabetes mellitus type 2: We'll resume patient's home Lantus 30 units at bedtime. Continue sliding scale coverage. She does have some hypoglycemia on admission. That is now resolved. Blood sugar this morning was 242 I performed an examination of the patient and discussed their management with the physician Predictive Maintenance Technician. I have reviewed the Physician Predictive Maintenance Technician's notes and agree with the documented findings and plan of care
[2016-12-02 11:36] LABS: Glucose,Whole Blood 345 mg/dL (75-99)
[2016-12-02] MEDS: FUROSEMIDE 20 MG TAB PO SCH (14:42)
[2016-12-02] MEDS: ACETAMINOPHEN TAB 325 MG TAB PO PRN (15:56)
[2016-12-02 17:26] LABS: Glucose,Whole Blood 207 mg/dL (75-99)
[2016-12-02 20:41] LABS: Glucose,Whole Blood 224 mg/dL (75-99)
[2016-12-02] MEDS: INSULIN GLARGINE 100 UNIT/ML 10 ML VIAL SQ SCH (21:08)
[2016-12-03] MEDS: SODIUM CHLORIDE 0.9% 1,000 ML IV SCH ×2 (06:22→07:52)
[2016-12-03 06:58] LABS: Glucose,Whole Blood 227 mg/dL (75-99)
[2016-12-03] MEDS: CHOLECALCIFEROL 1,000 UNIT TAB PO SCH (07:44)
[2016-12-03] MEDS: ENOXAPARIN 100 MG/ML SYRINGE SQ SCH (07:44)
[2016-12-03] MEDS: METOPROLOL TARTRATE 25 MG TAB PO SCH (07:44)
[2016-12-03] MEDS: INSULIN LISPRO (humaLOG) 300 UNIT/3 ML VIAL SQ SCH ×4 (07:45→20:07)
[2016-12-03] MEDS: ANASTROZOLE 1 MG TAB PO SCH (07:45)
[2016-12-03] MEDS: FUROSEMIDE 20 MG TAB PO SCH (07:45)
[2016-12-03 08:09] LABS: INR 1.1 (<1.1); Prothrombin Time 10.9 sec (9.0-12.0)
[2016-12-03 08:16] LABS: Calcium 10.6 mg/dL (8.4-10.2); Potassium 5.2 mmol/L (3.5-5.1)
--- NOTE | 2016-12-03 10:20 | P.PN ---
Subjective Patient is doing well today. No events overnight Objective - Vital Signs Vital signs: Vital Signs Temp 98.2 F 12/03/16 07:00 Pulse 98 12/03/16 08:00 Resp 18 12/03/16 08:00 BP 147/76 12/03/16 07:00 Pulse Ox 93 L 12/03/16 07:00 Intake & Output 12/02/16 12/03/16 12/03/16 18:59 06:59 18:59 Intake Total 190 680 Balance 190 680 Weight 84.8 kg Intake: IV 140 Sodium Chloride 0.9% 1, 140 000 ml @ 75 mls/hr IV . [id number] [facility] Rx#:[id number] Intake, IV Titration 50 Amount cefTRIAXone 1,000 mg In 50 Sodium Chloride 0.9% 50 ml @ 100 mls/hr IVPB Q24HR [facility] Rx#:[id number] Oral 680 Other: Voiding Method Toilet Toilet Toilet # Voids 1 3 1 # Bowel Movements 1 - Exam General: The patient is awake and alert, in no distress Eye: there is normal conjunctiva bilaterally. Neck: The neck is supple, there is no JVD. Cardiovascular: Normal S1-S2, no S3-S4, no murmurs. Respiratory: Lungs clear to auscultation bilaterally Gastrointestinal: Abdomen is soft, nontender Musculoskeletal: There is no pedal edema. Neurological:. Speech is normal. Skin: Skin is warm and dry - Labs CBC & Chem 7: 12/02/16 07:36 12/03/16 07:39 Labs: Abnormal Lab Results - Last 24 Hours (Table) 12/02/16 12/02/16 12/02/16 Range/Units 11:34 17:23 20:38 Potassium (3.5-5.1) mmol/L BUN (7-17) mg/dL Creatinine (0.52-1.04) mg/dL Glucose (74-99) mg/dL POC Glucose (mg/dL) 345 H 207 H 224 H (75-99) mg/dL Calcium (8.4-10.2) mg/dL 12/03/16 12/03/16 Range/Units 06:52 07:39 Potassium 5.2 H (3.5-5.1) mmol/L BUN 22 H (7-17) mg/dL Creatinine 1.16 H (0.52-1.04) mg/dL Glucose 257 H (74-99) mg/dL POC Glucose (mg/dL) 227 H (75-99) mg/dL Calcium 10.6 H (8.4-10.2) mg/dL Assessment and Plan Plan: #1 acute renal failure, likely related to dehydration and prerenal azotemia. Patient given IV fluids. Creatinine 1.12. Continue to monitor. #2 urinary tract infection: Urine culture growing pantoea agglomerans. Continue with IV Rocephin #3 right renal pelvis kidney stone: Urology is planning shockwave lithotripsy on Monday for patient. Continue to hold Coumadin. #4 underlying history of paroxysmal atrial fibrillation Continue Lovenox for anticoagulation #5 underlying history of metastatic breast cancer, patient is complaining of severe pain in her back. Evaluated by oncology. No further recommendations. #6 acute mental status changes , likely a metabolic encephalopathy secondary to urinary tract infection and dehydration. CT scan of the brain showed no metastatic disease. And patient back to baseline #7 diabetes mellitus type 2: We'll resume patient's home Lantus 30 units at bedtime. Continue sliding scale coverage.
[2016-12-03 11:25] LABS: Glucose,Whole Blood 309 mg/dL (75-99)
[2016-12-03 16:59] LABS: Glucose,Whole Blood 249 mg/dL (75-99)
[2016-12-03 19:58] LABS: Glucose,Whole Blood 332 mg/dL (75-99)
[2016-12-03] MEDS: INSULIN GLARGINE 100 UNIT/ML 10 ML VIAL SQ SCH (20:05)
[2016-12-03] MEDS ORDERED: METOPROLOL TARTRATE 25 MG TAB ONE (21:00)
[2016-12-04 07:41] LABS: Glucose,Whole Blood 128 mg/dL (75-99)
[2016-12-04 08:36] LABS: INR 1.1 (<1.1); Prothrombin Time 10.9 sec (9.0-12.0)
[2016-12-04] MEDS: METOPROLOL TARTRATE 25 MG TAB PO SCH ×3 (08:36→20:01)
[2016-12-04] MEDS: SODIUM CHLORIDE 0.9% 1,000 ML IV SCH ×2 (08:36→08:42)
[2016-12-04] MEDS: INSULIN LISPRO (humaLOG) 300 UNIT/3 ML VIAL SQ SCH ×4 (08:37→23:29)
[2016-12-04] MEDS: ENOXAPARIN 100 MG/ML SYRINGE SQ SCH ×2 (08:41→08:44)
[2016-12-04] MEDS: FUROSEMIDE 20 MG TAB PO SCH (08:41)
[2016-12-04] MEDS: CHOLECALCIFEROL 1,000 UNIT TAB PO SCH (08:42)
[2016-12-04] MEDS: ANASTROZOLE 1 MG TAB PO SCH (08:42)
[2016-12-04 08:52] LABS: Potassium 4.6 mmol/L (3.5-5.1)
[2016-12-04 12:09] LABS: Glucose,Whole Blood 334 mg/dL (75-99)
--- NOTE | 2016-12-04 14:11 | P.PN ---
Subjective Patient is complaining of worsening lower extremity edema. Her legs appeared swollen with +3 pitting edema up to the mid chin. She has been maintained on IV fluids with normal saline at 75 Ml per hour since admission approximately 8 days ago. Objective - Vital Signs Vital signs: Vital Signs Temp 97.5 F L 12/04/16 07:00 Pulse 81 12/04/16 08:00 Resp 16 12/04/16 08:00 BP 178/79 12/04/16 07:00 Pulse Ox 97 12/04/16 08:41 Intake & Output 12/03/16 12/04/16 12/04/16 18:59 06:59 18:59 Intake Total 1142.5 180 180 Balance 1142.5 180 180 Weight 84.8 kg Intake: IV 562.5 Sodium Chloride 0.9% 1, 562.5 000 ml @ 75 mls/hr IV . [id number] [facility] Rx#:[id number] Intake, IV Titration 100 Amount cefTRIAXone 1,000 mg In 100 Sodium Chloride 0.9% 50 ml @ 100 mls/hr IVPB Q24HR [facility] Rx#:[id number] Oral 480 180 180 Other: Voiding Method Toilet Toilet Toilet # Voids 4 2 - Exam General: The patient is awake and alert, in no distress Eye: there is normal conjunctiva bilaterally. Neck: The neck is supple, there is no JVD. Cardiovascular: Normal S1-S2, no S3-S4, no murmurs. Respiratory: Lungs clear to auscultation bilaterally Gastrointestinal: Abdomen is soft, nontender Musculoskeletal: There is +3 pitting edema Neurological:. Speech is normal. Skin: Skin is warm and dry - Labs CBC & Chem 7: 12/02/16 07:36 12/04/16 07:39 Labs: Abnormal Lab Results - Last 24 Hours (Table) 12/03/16 12/03/16 12/04/16 Range/Units 16:50 19:56 07:28 BUN (7-17) mg/dL Creatinine (0.52-1.04) mg/dL Glucose (74-99) mg/dL POC Glucose (mg/dL) 249 H 332 H 128 H (75-99) mg/dL 12/04/16 12/04/16 Range/Units 07:39 12:07 BUN 21 H (7-17) mg/dL Creatinine 1.14 H (0.52-1.04) mg/dL Glucose 154 H (74-99) mg/dL POC Glucose (mg/dL) 334 H (75-99) mg/dL Assessment and Plan Plan: #1 acute renal failure, likely related to dehydration and prerenal azotemia. #2 urinary tract infection: Urine culture growing pantoea agglomerans. Continue with IV Rocephin #3 right renal pelvis kidney stone: Urology is planning shockwave lithotripsy on Monday for patient. Continue to hold Coumadin. #4 underlying history of paroxysmal atrial fibrillation Continue Lovenox for anticoagulation #5 underlying history of metastatic breast cancer, patient is complaining of severe pain in her back. Evaluated by oncology. No further recommendations. #6 acute mental status changes , likely a metabolic encephalopathy secondary to urinary tract infection and dehydration. CT scan of the brain showed no metastatic disease. And patient back to baseline #7 diabetes mellitus type 2: We'll resume patient's home Lantus 30 units at bedtime. Continue sliding scale coverage. Discontinue IV fluid Discontinue anticoagulation dose of Lovenox and start subcu heparin for DVT prophylaxis resume Coumadin tomorrow after urologic procedure
[2016-12-04 17:46] LABS: Glucose,Whole Blood 319 mg/dL (75-99)
[2016-12-04] MEDS: ACETAMINOPHEN TAB 325 MG TAB PO PRN (20:02)
[2016-12-04 21:55] LABS: Glucose,Whole Blood 228 mg/dL (75-99)
[2016-12-04] MEDS: INSULIN GLARGINE 100 UNIT/ML 10 ML VIAL SQ SCH (22:00)
[2016-12-05 08:17] LABS: Glucose,Whole Blood 137 mg/dL (75-99)
[2016-12-05] MEDS: METOPROLOL TARTRATE 25 MG TAB PO SCH ×2 (08:44→21:23)
[2016-12-05] MEDS ORDERED: HEPARIN SODIUM,PORCINE 5,000 UNIT/ML 1 ML VIAL SQ SCH (09:00)
[2016-12-05] MEDS: INSULIN LISPRO (humaLOG) 300 UNIT/3 ML VIAL SQ SCH ×4 (09:00→21:21)
[2016-12-05] MEDS ORDERED: PROPOFOL 10 MG/ML 20 ML VIAL IV ONE (09:09)
[2016-12-05] MEDS ORDERED: KETAMINE 10 MG/ML 20 ML VIAL ONE (09:09)
[2016-12-05] MEDS ORDERED: IV FLUID CONTINUATION 1,000 ML IV ONE (09:14)
[2016-12-05] MEDS: FUROSEMIDE 20 MG TAB PO SCH (11:45)
[2016-12-05] MEDS: CHOLECALCIFEROL 1,000 UNIT TAB PO SCH (11:46)
[2016-12-05] MEDS: ANASTROZOLE 1 MG TAB PO SCH (11:46)
[2016-12-05 11:50] LABS: Glucose,Whole Blood 161 mg/dL (75-99)
--- NOTE | 2016-12-05 12:02 | P.PN ---
Subjective Patient presented with generalized weakness and mental status changes. She was found to have Evidence of a UTI. She also had reported lower back pain. And was found to have evidence of kidney stone. She currently on IV Rocephin. Evaluated by urology. The plan is for shockwave lithotripsy outpatient. Patient reports improvement in her back pain. Denies any burning with urination. Denies any chest pain or shortness breath. Denies any nausea or vomiting. Last bowel movement 2 days ago. Her mentation has shown improvement. Patient is been fluctuating between sinus rhythm and atrial flutter. Her metoprolol will be restarted 12/01/2016 patient reporting still having some back pain. Patient would like to have this shockwave lithotripsy completed during her hospitalization. Awaiting urology recommendations. 12/02/2016 patient reports some improvement in her back pain. She has a chest pain or shortness of breath. Denies any nausea or vomiting. Denies any burning with urination. Discussed case with urology office and they will be proceeding with shockwave lithotripsy on Monday for patient in regards to her kidney stone. Patient's fluids hep-locked she did receive 1 dose of Lasix yesterday. 12/05/2016 patient status post shockwave lithotripsy for right kidney stones. Urology has recommended no Coumadin, Lovenox, heparin to be restarted until okayed by Dr. Ochoa. Patient lying in bed comfortably. She is hungry for lunch. Denies any chest pain or shortness breath. Denies any nausea or vomiting. Has been having regular bowel movements. Objective - Vital Signs Vital signs: Vital Signs Temp 97 F L 12/05/16 11:10 Pulse 73 12/05/16 11:10 Resp 16 12/05/16 11:10 BP 131/69 12/05/16 11:10 Pulse Ox 94 L 12/05/16 11:10 Intake & Output 12/04/16 12/05/16 12/05/16 18:59 06:59 18:59 Intake Total 945 400 450 Balance 945 400 450 Weight 84.8 kg Intake: IV 525 450 Sodium Chloride 0.9% 1, 525 000 ml @ 75 mls/hr IV . [id number] [facility] Rx#:[id number] Oral 420 400 Other: Voiding Method Toilet Toilet Toilet Diaper Diaper # Voids 3 1 1 # Bowel Movements 1 - Exam Head normocephalic Neck supple Lungs clear to auscultation bilaterally no wheezing or crackles Heart regular rate and rhythm S1-S2, no rub or gallop Abdomen is soft nontender nondistended positive bowel sounds no hepatosplenomegaly Extremities edema present Neuro alert and orientated to 3 - Labs CBC & Chem 7: 12/02/16 07:36 12/04/16 07:39 Labs: Abnormal Lab Results - Last 24 Hours (Table) 12/04/16 12/04/16 12/04/16 Range/Units 12:07 17:15 21:50 POC Glucose (mg/dL) 334 H 319 H 228 H (75-99) mg/dL 12/05/16 12/05/16 Range/Units 08:07 11:48 POC Glucose (mg/dL) 137 H 161 H (75-99) mg/dL Assessment and Plan Plan: #1 acute renal failure, likely related to dehydration and prerenal azotemia. Patient given IV fluids. Creatinine 1.14. Continue to monitor. #2 urinary tract infection: Urine culture growing pantoea agglomerans. Completed antibiotics during hospitalization #3 right renal pelvis kidney stone: Status post shockwave lithotripsy today #4 underlying history of paroxysmal atrial fibrillation maintained on Coumadin. Coumadin on hold #5 underlying history of metastatic breast cancer, patient is complaining of severe pain in her back. Evaluated by oncology. No further recommendations. #6 acute mental status changes , likely a metabolic encephalopathy secondary to urinary tract infection and dehydration. CT scan of the brain showed no metastatic disease. And patient back to baseline #7 diabetes mellitus type 2: We'll resume patient's home Lantus 30 units at bedtime. Continue sliding scale coverage. She does have some hypoglycemia on admission. That is now resolved. Urology recommends no Coumadin, Lovenox, subcu heparin at this time. Dr. Pedraza will let us know resume the Coumadin We'll place patient on SCDs for DVT prophylaxis Physical therapy has been consulted to ambulate patient. Anticipate discharge home possibly tomorrow I performed an examination of the patient and discussed their management with the physician Computer Security Specialist. I have reviewed the Physician Computer Security Specialist's notes and agree with the documented findings and plan of care
[2016-12-05 12:05] LABS: Basophils # (A) 0.1 k/uL (0-0.2); Basophils % (A) 1 %; CH 26.9; CHCM 32.3; Eosinophils # (A) 0.2 k/uL (0-0.7); Eosinophils % (A) 2 %; HCT 36.7 % (34.0-46.0); HDW 2.78; HGB 11.8 gm/dL (11.4-16.0); Luc # (Auto) 0.22; Luc % (Auto) 2; Lymphocytes # (A) 1.4 k/uL (1.0-4.8); Lymphocytes % (A) 13 %; MCH 26.9 pg (25.0-35.0); MCHC 32.2 g/dL (31.0-37.0); MCV 83.6 fL (80.0-100.0); Monocytes # (A) 0.8 k/uL (0-1.0); Monocytes % (A) 8 %; Neutrophils # (A) 8.2 k/uL (1.3-7.7); Neutrophils % (A) 75 %; RBC 4.38 m/uL (3.80-5.40); RDW 14.3 % (11.5-15.5); WBC 10.9 k/uL (3.8-10.6); WBC (Perox) 10.94
[2016-12-05] MEDS: SODIUM CHLORIDE 0.9% 1,000 ML IV SCH (12:45)
[2016-12-05] MEDS ORDERED: SODIUM CHLORIDE 0.9% 1,000 ML IV SCH (13:00)
[2016-12-05 17:08] LABS: Glucose,Whole Blood 276 mg/dL (75-99)
[2016-12-05] MEDS: ACETAMINOPHEN TAB 325 MG TAB PO PRN (17:43)
[2016-12-05 20:56] LABS: Glucose,Whole Blood 283 mg/dL (75-99)
[2016-12-05] MEDS: INSULIN GLARGINE 100 UNIT/ML 10 ML VIAL SQ SCH (21:22)
[2016-12-06] MEDS ORDERED: ACETAMINOPHEN TAB 325 MG TAB ONE (03:45)
[2016-12-06 07:25] LABS: Glucose,Whole Blood 150 mg/dL (75-99)
--- NOTE | 2016-12-06 07:39 | P.PN ---
Subjective The patient underwent shockwave lithotripsy yesterday for her right renal pelvic stone. She is feeling well this morning. She has passed several fragments. I would like to see her in the office in 1 week with a KUB. She can be discharged home urologically at any time. Objective - Vital Signs Vital signs: Vital Signs Temp 98.2 F 12/05/16 23:00 Pulse 96 12/05/16 23:00 Resp 20 12/05/16 23:00 BP 152/73 12/05/16 23:00 Pulse Ox 95 12/05/16 23:00 Intake & Output 12/05/16 12/06/16 12/06/16 18:59 06:59 18:59 Intake Total 1170 Output Total 450 Balance 720 Intake: IV 450 Oral 720 Output: Urine 450 Other: Voiding Method Toilet Diaper # Voids 1 1 # Bowel Movements 1 - Labs CBC & Chem 7: 12/05/16 11:51 12/04/16 07:39 Labs: Abnormal Lab Results - Last 24 Hours (Table) 12/05/16 12/05/16 12/05/16 Range/Units 08:07 11:48 11:51 WBC 10.9 H (3.8-10.6) k/uL Neutrophils # 8.2 H (1.3-7.7) k/uL POC Glucose (mg/dL) 137 H 161 H (75-99) mg/dL 12/05/16 12/05/16 12/06/16 Range/Units 17:02 20:54 07:22 WBC (3.8-10.6) k/uL Neutrophils # (1.3-7.7) k/uL POC Glucose (mg/dL) 276 H 283 H 150 H (75-99) mg/dL
[2016-12-06] MEDS: INSULIN LISPRO (humaLOG) 300 UNIT/3 ML VIAL SQ SCH ×4 (07:50→21:18)
[2016-12-06 07:53] LABS: Basophils % (A) 0 %; CH 26.8; CHCM 31.7; Eosinophils # (A) 0.2 k/uL (0-0.7); Eosinophils % (A) 1 %; HCT 35.2 % (34.0-46.0); HDW 2.65; Hypochromasia Slight; Luc # (Auto) 0.19; Luc % (Auto) 2; Lymphocytes # (A) 1.6 k/uL (1.0-4.8); Lymphocytes % (A) 12 %; MCH 26.6 pg (25.0-35.0); MCHC 31.3 g/dL (31.0-37.0); MCV 84.8 fL (80.0-100.0); Mean Platelet Volume 6.7; Monocytes # (A) 0.6 k/uL (0-1.0); Monocytes % (A) 5 %; Neutrophils # (A) 10.2 k/uL (1.3-7.7); Neutrophils % (A) 80 %; RBC 4.15 m/uL (3.80-5.40); RDW 14.4 % (11.5-15.5); WBC 12.7 k/uL (3.8-10.6); WBC (Perox) 12.81
[2016-12-06 08:00] LABS: Calcium 10.5 mg/dL (8.4-10.2); Potassium 4.9 mmol/L (3.5-5.1); Prothrombin Time 10.4 sec (9.0-12.0); Total Bilirubin 0.4 mg/dL (0.2-1.3); Total Protein 6.5 g/dL (6.3-8.2)
--- NOTE | 2016-12-06 08:44 | OP ---
DATE OF SERVICE: SURGEON: MAC HAGEN MD PREOPERATIVE DIAGNOSIS: Right renal calculus. POSTOPERATIVE DIAGNOSIS: Right renal calculus. OPERATION: Extracorporeal shockwave lithotripsy of right renal calculus. ANESTHESIA: Intravenous sedation. HISTORY: The patient is a 81-year-old female with flank pain who was discovered to have 8 x 15 mm calculus in the right renal pelvis. The patient was recently evaluated by Dr. Ochoa and has elected to proceed with ESWL treatment of the calculus. The patient has a history of atrial fibrillation and last received Lovenox on the morning of 12/03. DESCRIPTION OF PROCEDURE: Patient is taken to the operating suite where intravenous sedation was given. Patient was placed in the supine position on the fluoroscopy table. The right renal calculus was localized using biplanar fluoroscopy. Lithotripsy was performed using the Dornier compact delta unit. Patient received 2500 shocks at level 4 at a rate of 60 shocks per minute. A 2 minute pause occurred after 200 shocks. There appeared to be good fragmentation of the calculus. Anesthesia was reversed and the patient was returned to the recovery room, awake and in satisfactory condition. DELMIS
[2016-12-06] MEDS: FUROSEMIDE 20 MG TAB PO SCH (09:33)
[2016-12-06] MEDS: ANASTROZOLE 1 MG TAB PO SCH (09:33)
[2016-12-06] MEDS: CHOLECALCIFEROL 1,000 UNIT TAB PO SCH (09:33)
[2016-12-06] MEDS: METOPROLOL TARTRATE 25 MG TAB PO SCH ×2 (09:34→21:26)
[2016-12-06] MEDS: ACETAMINOPHEN TAB 325 MG TAB PO PRN ×2 (09:35→21:21)
[2016-12-06 11:50] LABS: Glucose,Whole Blood 267 mg/dL (75-99)
--- NOTE | 2016-12-06 13:05 | P.PN ---
Subjective Patient presented with generalized weakness and mental status changes. She was found to have Evidence of a UTI. She also had reported lower back pain. And was found to have evidence of kidney stone. She currently on IV Rocephin. Evaluated by urology. The plan is for shockwave lithotripsy outpatient. Patient reports improvement in her back pain. Denies any burning with urination. Denies any chest pain or shortness breath. On review of systems Denies any nausea or vomiting. Last bowel movement 2 days ago. Her mentation has shown improvement. Patient is been fluctuating between sinus rhythm and atrial flutter. Her metoprolol will be restarted Objective - Vital Signs Vital signs: Vital Signs Temp 98.7 F 12/06/16 08:17 Pulse 86 12/06/16 09:38 Resp 16 12/06/16 08:17 BP 104/53 12/06/16 08:46 Pulse Ox 98 12/06/16 09:40 Intake & Output 12/05/16 12/06/16 12/06/16 18:59 06:59 18:59 Intake Total 1170 200 Output Total 450 150 Balance 720 50 Intake: IV 450 Oral 720 200 Output: Urine 450 150 Other: Voiding Method Toilet Toilet Diaper Diaper # Voids 1 1 # Bowel Movements 1 - Exam HEENT head normocephalic and atraumatic Neck is supple no JVD no goiter no lymphadenopathy Chest is clear to auscultation no wheezing Cardiac exam reveals regular heart sounds no gallops no murmurs Abdomen is soft nontender no organomegaly Extremity exam reveals 2+ edema - Labs CBC & Chem 7: 12/06/16 07:19 12/06/16 07:19 Labs: Abnormal Lab Results - Last 24 Hours (Table) 12/05/16 12/05/16 12/06/16 Range/Units 17:02 20:54 07:19 WBC 12.7 H (3.8-10.6) k/uL Hgb 11.0 L (11.4-16.0) gm/dL Neutrophils # 10.2 H (1.3-7.7) k/uL BUN (7-17) mg/dL Creatinine (0.52-1.04) mg/dL Glucose (74-99) mg/dL POC Glucose (mg/dL) 276 H 283 H (75-99) mg/dL Calcium (8.4-10.2) mg/dL Albumin (3.5-5.0) g/dL 12/06/16 12/06/16 12/06/16 Range/Units 07:19 07:22 11:48 WBC (3.8-10.6) k/uL Hgb (11.4-16.0) gm/dL Neutrophils # (1.3-7.7) k/uL BUN 19 H (7-17) mg/dL Creatinine 1.20 H (0.52-1.04) mg/dL Glucose 161 H (74-99) mg/dL POC Glucose (mg/dL) 150 H 267 H (75-99) mg/dL Calcium 10.5 H (8.4-10.2) mg/dL Albumin 3.2 L (3.5-5.0) g/dL Assessment and Plan Plan: #1 acute renal failure, likely related to dehydration and prerenal azotemia patient was started on IV fluid Will monitor closely, patient improved significantly kidney function is almost back to normal, at this time will discontinue IV fluid #2 urinary tract infection, patient was started on IV Rocephin in the emergency room awaiting urine culture results #3 right renal pelvis kidney stone, patient underwent shockwave lithotripsy yesterday she is passing small pieces of her kidney stone. #4 underlying history of atrial fibrillation maintained on Coumadin INR is subtherapeutic, per urology instruction, no Coumadin or Lovenox until seen by Dr. Pedraza as outpatient #5 underlying history of metastatic breast cancer #6 mental status changes may be related to urinary tract infection and dehydration, improved patient is back to her baseline #7 physical debility patient was counseled in length to go to [facility] or any assisted for rehab however she is refusing adamantly will continue was physical therapy here today possible discharge to home tomorrow with home care Will follow closely
[2016-12-06 17:31] LABS: Glucose,Whole Blood 216 mg/dL (75-99)
[2016-12-06 21:12] LABS: Glucose,Whole Blood 246 mg/dL (75-99)
[2016-12-06] MEDS: INSULIN GLARGINE 100 UNIT/ML 10 ML VIAL SQ SCH (21:17)
[2016-12-07] MEDS: ACETAMINOPHEN TAB 325 MG TAB PO PRN ×2 (06:35→21:19)
[2016-12-07 07:37] LABS: Glucose,Whole Blood 116 mg/dL (75-99)
[2016-12-07 07:40] LABS: Basophils # (A) 0.1 k/uL (0-0.2); Basophils % (A) 1 %; CH 26.3; CHCM 30.2; Eosinophils # (A) 0.2 k/uL (0-0.7); Eosinophils % (A) 2 %; HCT 36.5 % (34.0-46.0); HDW 2.65; Hypochromasia Moderate; Luc # (Auto) 0.27; Luc % (Auto) 3; Lymphocytes # (A) 1.6 k/uL (1.0-4.8); Lymphocytes % (A) 19 %; MCH 26.4 pg (25.0-35.0); MCHC 30.2 g/dL (31.0-37.0); MCV 87.4 fL (80.0-100.0); Mean Platelet Volume 6.4; Monocytes # (A) 0.5 k/uL (0-1.0); Monocytes % (A) 6 %; Neutrophils # (A) 6.1 k/uL (1.3-7.7); Neutrophils % (A) 70 %; RBC 4.17 m/uL (3.80-5.40); RDW 14.3 % (11.5-15.5); WBC 8.7 k/uL (3.8-10.6); WBC (Perox) 8.58
[2016-12-07 07:48] LABS: Prothrombin Time 10.2 sec (9.0-12.0)
[2016-12-07 08:04] LABS: Calcium 10.3 mg/dL (8.4-10.2); Potassium 4.9 mmol/L (3.5-5.1); Total Bilirubin 0.4 mg/dL (0.2-1.3); Total Protein 6.5 g/dL (6.3-8.2)
[2016-12-07] MEDS: INSULIN LISPRO (humaLOG) 300 UNIT/3 ML VIAL SQ SCH ×4 (08:15→21:27)
[2016-12-07] MEDS: CHOLECALCIFEROL 1,000 UNIT TAB PO SCH (08:17)
[2016-12-07] MEDS: FUROSEMIDE 20 MG TAB PO SCH (08:17)
[2016-12-07] MEDS: ANASTROZOLE 1 MG TAB PO SCH (08:17)
[2016-12-07] MEDS: METOPROLOL TARTRATE 25 MG TAB PO SCH ×2 (08:17→21:21)
[2016-12-07 11:57] LABS: Glucose,Whole Blood 316 mg/dL (75-99)
--- NOTE | 2016-12-07 12:59 | P.DS ---
Providers Date of admission: 11/26/16 16:09 Attending physician: Kolton Ordoñez Consults: 11/26/16 16:09 Consult Physician Urgent Consulting Provider: Allegra Staples Consult Reason/Comments: Oncological care Do you want consulting provider notified?: Yes 11/26/16 16:41 Consult Physician Urgent Consulting Provider: Shawn Ochoa Consult Reason/Comments: Kidney stone, UTI Do you want consulting provider notified?: Already Contacted 11/27/16 10:23 Consult Physician Routine Consulting Provider: Allegra Staples Consult Reason/Comments: metastatic breast cancer Do you want consulting provider notified?: Yes Consult Physician Routine Consulting Provider: Brian Verduzco Consult Reason/Comments: kidney stone Do you want consulting provider notified?: Yes 11/28/16 10:51 Consult Physician Routine Consulting Provider: Fallon Haas Consult Reason/Comments: aflutter Do you want consulting provider notified?: Yes Primary care physician: [facility] Course: Diagnosis on discharge: #1 acute renal failure, likely related to dehydration and prerenal azotemia patient was started on IV fluid Will monitor closely #2 urinary tract infection, patient was started on IV Rocephin in the emergency room awaiting urine culture results #3 right renal pelvis kidney stone, will obtain ultrasound of the kidneys will consult urology #4 underlying history of atrial fibrillation maintained on Coumadin INR is therapeutic will continue was current dose #5 underlying history of metastatic breast cancer, patient is complaining of severe pain in her back Will consult oncology #6 mental status changes, metabolic encephalopathy related to urinary tract infection Hospital course Patient presented with generalized weakness and mental status changes. She was found to have Evidence of a UTI. She also had reported lower back pain. And was found to have evidence of kidney stone. She currently on IV Rocephin. Evaluated by urology. The plan is for shockwave lithotripsy outpatient. Patient reports improvement in her back pain. Denies any burning with urination. Denies any chest pain or shortness breath. Denies any nausea or vomiting. Last bowel movement 2 days ago. Her mentation has shown improvement. Patient is been fluctuating between sinus rhythm and atrial flutter. Her metoprolol will be restarted 12/01/2016 patient reporting still having some back pain. Patient would like to have this shockwave lithotripsy completed during her hospitalization. Awaiting urology recommendations. 12/02/2016 patient reports some improvement in her back pain. She has a chest pain or shortness of breath. Denies any nausea or vomiting. Denies any burning with urination. Discussed case with urology office and they will be proceeding with shockwave lithotripsy on Monday for patient in regards to her kidney stone. Patient's fluids hep-locked she did receive 1 dose of Lasix yesterday. 12/05/2016 patient status post shockwave lithotripsy for right kidney stones. Urology has recommended no Coumadin, Lovenox, heparin to be restarted until okayed by Dr. Ochoa. Patient lying in bed comfortably. She is hungry for lunch. Denies any chest pain or shortness breath. Denies any nausea or vomiting. Has been having regular bowel movements. Patient had significant physical debility she was discharged to [facility] for physical therapy and rehab for 1-2 weeks Patient should follow with Dr. Ochoa as outpatient in [address] Ochoa was to keep patient off Coumadin and any anticoagulation until seen by him in 1 week Patient Condition at Discharge: Serious Plan - Discharge Summary Discharge Medication List Anastrozole [Arimidex] 1 mg PO DAILY 05/14/15 [History] Cholecalciferol [Vitamin D3] 2,000 unit PO DAILY 05/14/15 [History] Acetaminophen Tab [Tylenol] 650 mg PO Q6HR PRN #0 tab 04/20/16 [Rx] Metoprolol Tartrate [Lopressor] 25 mg PO BID tab 04/20/16 [Rx] Warfarin [Coumadin] 3 mg PO TUTH 11/26/16 [History] glyBURIDE/METFORMIN HCL [glyBURIDE/METFORMIN HCL 5-500 mg] 2 tab PO BID [History] Insulin Glargine [Lantus] 30 unit SQ HS 12/02/16 [History] Furosemide [Lasix] 20 mg PO DAILY tab 12/07/16 [Rx] Follow up Appointment(s)/Referral(s): Jada Ybarra DO [Primary Care Provider] - 1-2 days [facility], [NON-STAFF] - Shawn Ochoa MD [STAFF PHYSICIAN] - 1 Week Allegra Staples MD [STAFF PHYSICIAN] - 12/09/16 2:45 pm () Patient Instructions/Handouts: *Surgery [facility] - (Urol) Extracorporeal Shockwave Lithotripsy (ESWL) Post-Op Instr, Urinary Tract Infection in Women (DC)
[2016-12-07 15:19] VITALS: BMI 33.1
[2016-12-07 17:41] LABS: Glucose,Whole Blood 287 mg/dL (75-99)
[2016-12-07] MEDS: INSULIN GLARGINE 100 UNIT/ML 10 ML VIAL SQ SCH (21:26)
[2016-12-07 21:37] LABS: Glucose,Whole Blood 255 mg/dL (75-99)
[2016-12-08 06:22] LABS: Basophils % (A) 1 %; CH 26.5; CHCM 30.6; Eosinophils # (A) 0.2 k/uL (0-0.7); Eosinophils % (A) 3 %; HCT 35.7 % (34.0-46.0); HDW 2.54; HGB 11.2 gm/dL (11.4-16.0); Hypochromasia Moderate; Luc # (Auto) 0.23; Luc % (Auto) 3; Lymphocytes # (A) 1.4 k/uL (1.0-4.8); Lymphocytes % (A) 18 %; MCH 27.4 pg (25.0-35.0); MCHC 31.5 g/dL (31.0-37.0); Mean Platelet Volume 6.7; Monocytes # (A) 0.4 k/uL (0-1.0); Monocytes % (A) 5 %; Neutrophils # (A) 5.3 k/uL (1.3-7.7); Neutrophils % (A) 70 %; RDW 14.7 % (11.5-15.5); WBC 7.6 k/uL (3.8-10.6); WBC (Perox) 8.21
[2016-12-08 06:30] LABS: Prothrombin Time 10.1 sec (9.0-12.0)
[2016-12-08 06:38] LABS: Calcium 10.8 mg/dL (8.4-10.2); Potassium 4.8 mmol/L (3.5-5.1); Total Bilirubin 0.4 mg/dL (0.2-1.3); Total Protein 6.3 g/dL (6.3-8.2)
[2016-12-08 08:12] LABS: Glucose,Whole Blood 180 mg/dL (75-99)
[2016-12-08] MEDS: ANASTROZOLE 1 MG TAB PO SCH (08:23)
[2016-12-08] MEDS: FUROSEMIDE 20 MG TAB PO SCH (08:23)
[2016-12-08] MEDS: CHOLECALCIFEROL 1,000 UNIT TAB PO SCH (08:24)
[2016-12-08] MEDS: INSULIN LISPRO (humaLOG) 300 UNIT/3 ML VIAL SQ SCH ×2 (08:25→12:47)
[2016-12-08] MEDS: ACETAMINOPHEN TAB 325 MG TAB PO PRN (08:32)
[2016-12-08] MEDS: METOPROLOL TARTRATE 25 MG TAB PO SCH (08:33)
[2016-12-08 10:15] VITALS: RESP 16
[2016-12-08 11:42] LABS: Glucose,Whole Blood 344 mg/dL (75-99)
[2016-12-08 12:30] VITALS: BP 111/71; PULSE 52; TEMP 97.7
== END 2016-12-08 14:09 | disposition home health service (06) | DRG 691 ==
LOC: EC 13:26 → 6SEL 16:09 → 5MS5E 12-01 11:52 → 6PED 12-04 20:41
PROVIDERS: ADMIT Internal Medicine; ATTEND Internal Medicine
PROC: 0TF3XZZ Fragmentation in Right Kidney Pelvis, External Approach (ICD-10-PCS; principal; 2016-12-05 17:30)
DX: N20.0 Calculus of kidney (principal); G93.41 Metabolic encephalopathy; E43 Unspecified severe protein-calorie malnutrition; N17.9 Acute kidney failure, unspecified; C77.3 Secondary and unspecified malignant neoplasm of axilla and upper limb lymph nodes; C79.51 Secondary malignant neoplasm of bone; E11.649 Type 2 diabetes mellitus with hypoglycemia without coma; I48.92 Unspecified atrial flutter; N13.30 Unspecified hydronephrosis; N39.0 Urinary tract infection, site not specified; C50.911 Malignant neoplasm of unspecified site of right female breast; I48.0 Paroxysmal atrial fibrillation; E86.0 Dehydration; I45.10 Unspecified right bundle-branch block; E78.5 Hyperlipidemia, unspecified; I10 Essential (primary) hypertension; M54.5 Low back pain; B96.89 Other specified bacterial agents as the cause of diseases classified elsewhere; R01.1 Cardiac murmur, unspecified; I67.9 Cerebrovascular disease, unspecified; R74.8 Abnormal levels of other serum enzymes; N39.41 Urge incontinence; R51 Headache; D72.829 Elevated white blood cell count, unspecified; R53.1 Weakness; R32 Unspecified urinary incontinence; R60.0 Localized edema; E83.52 Hypercalcemia; Z82.49 Family history of ischemic heart disease and other diseases of the circulatory system; Z83.3 Family history of diabetes mellitus; Z79.899 Other long term (current) drug therapy; Z79.811 Long term (current) use of aromatase inhibitors; Z79.01 Long term (current) use of anticoagulants; Z86.718 Personal history of other venous thrombosis and embolism; Z85.830 Personal history of malignant neoplasm of bone; Z88.5 Allergy status to narcotic agent; Z92.3 Personal history of irradiation; Z79.4 Long term (current) use of insulin; Z71.3 Dietary counseling and surveillance; Z90.49 Acquired absence of other specified parts of digestive tract; Z98.51 Tubal ligation status; Z90.11 Acquired absence of right breast and nipple; Z98.49 Cataract extraction status, unspecified eye; Z68.33 Body mass index [BMI] 33.0-33.9, adult; Z17.0 Estrogen receptor positive status [ER+]; Z86.69 Personal history of other diseases of the nervous system and sense organs
CPT/HCPCS: 36415; 50590; 70450; 71020; 74000; 74176; 76770; 80048; 80053; 81001; 82550; 82553; 83036; 83735; 84100; 84439; 84443; 84481; 84484; 85025; 85610; 85730; 87077; 87086; 87186; 93005; 94760

== ENCOUNTER 2017-10-06 16:43 | Inpatient (IN) | payer MEDICARE ==
[2017-10-06] MEDS ORDERED: ONDANSETRON 4 MG/2 ML VIAL IVP STA (17:21)
[2017-10-06] MEDS ORDERED: MORPHINE SULFATE 4 MG/ML SYRINGE IV STA (17:21)
[2017-10-06] MEDS ORDERED: SODIUM CHLORIDE 0.9% 1,000 ML IV ONE (17:21)
--- NOTE | 2017-10-06 17:31 | ED ---
Back Pain HPI <Mukesh Lewis - Last Filed: 10/06/17 20:14> - General Source: EMS, RN notes reviewed, old records reviewed Limitations: no limitations <Emy Weeks - Last Filed: 10/06/17 22:36> - General Chief Complaint: Back Pain/Injury Stated Complaint: Back pain Time Seen by Provider: 10/06/17 17:05 - History of Present Illness Initial Comments: This is an 82-year-old female presents emergency Department today chief complaint of a fall on a Monday afternoon. It was related to a low blood sugar. She reports she is walking to the fridge because her blood sugar was low and passed out. There is a questionable loss of consciousness. Patient states that she had her life alert button. EMS arrived. Patient refused transport to the hospital at that time. Patient reports that she is on blood thinners. Since that time patient's developed significant ecchymosis over the left side of her back and reports it's very painful with any movements. Patient 's daughter is also with her reports that she is just finishing antibiotics for urinary tract infection. They started the urine anabiotic's on Monday she completed Bactrim. Patient relates that she has no significant chest pain or shortness of breath but there is pain on her ribs whenever she takes a deep breath. Patient states that she has had no nausea or vomiting. She did have some diarrhea earlier in the week. Patient also relates that she had a fall 1 week prior. She does not remember what caused the fall at that time. She states that EMS was called and she refused transfer to the urgency department at that time as well. Patient states that since Monday she has been ambulating. She does live at home alone. (Emy Weeks) - Related Data Home Medications Medication Instructions Recorded Confirmed Anastrozole [Arimidex] 1 mg PO DAILY 05/14/15 10/06/17 Warfarin [Coumadin] 3 mg PO MOTUWETH 11/26/16 10/06/17 glyBURIDE/METFORMIN HCL 1 tab PO BID 11/26/16 10/06/17 [glyBURIDE/METFORMIN HCL 5-500 mg] Insulin Glargine [Lantus] 30 unit SQ HS 12/02/16 10/06/17 Aspirin [Adult Low Dose Aspirin EC] 81 mg PO DAILY 10/06/17 10/06/17 Ferrous Sulfate [Feosol] 325 mg PO DAILY 10/06/17 10/06/17 Furosemide [Lasix] 40 mg PO DAILY 10/06/17 10/06/17 Naproxen Sodium [Aleve] 440 mg PO DAILY 10/06/17 10/06/17 Previous Rx's Medication Instructions Recorded Acetaminophen Tab [Tylenol] 650 mg PO Q6HR PRN #0 tab 04/20/16 Metoprolol Tartrate [Lopressor] 25 mg PO BID tab 04/20/16 Allergies Allergy/AdvReac Type Severity Reaction Status Date / Time codeine Allergy Abdominal Verified 10/06/17 17:42 Pain Review of Systems ROS Other: All systems not noted in ROS Statement are negative. <Mukesh Lewis - Last Filed: 10/06/17 20:14> ROS Other: All systems not noted in ROS Statement are negative. <Emy Weeks - Last Filed: 10/06/17 22:36> ROS Statement: Those systems with pertinent positive or pertinent negative responses have been documented in the HPI. Past Medical History Past Medical History: Cancer, Diabetes Mellitus, Deep Vein Thrombosis (DVT), Hyperlipidemia, Hypertension, Memory Impairment Additional Past Medical History / Comment(s): hx. 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 DVT leg years ago, uses walker, bone CA-sees dr hu, History of Any Multi-Drug Resistant Organisms: None Reported Past Surgical History: Breast Surgery, Cholecystectomy, Heart Catheterization, Tubal Ligation Additional Past Surgical History / Comment(s): right mastectomy, cataracts removed, excision of lesion rt cheek, steroid inj in past for heel spur, lithotripsy Past Anesthesia/Blood Transfusion Reactions: No Reported Reaction Past Psychological History: No Psychological Hx Reported Smoking Status: Never smoker Past Alcohol Use History: None Reported Past Drug Use History: None Reported - Past Family History Mother Family Medical History: Diabetes Mellitus Father Family Medical History: Congestive Heart Failure (CHF) <Emy Weeks - Last Filed: 10/06/17 22:36> General Exam <Mukesh Lewis - Last Filed: 10/06/17 20:14> Limitations: no limitations General appearance: alert, in no apparent distress Head exam: Present: atraumatic, normocephalic, normal inspection Eye exam: Present: normal appearance, PERRL, EOMI. Absent: scleral icterus, conjunctival injection, periorbital swelling ENT exam: Present: normal exam, mucous membranes moist. Absent: normal oropharynx (Dry oropharynx) Neck exam: Present: normal inspection. Absent: tenderness, meningismus, lymphadenopathy Respiratory exam: Present: normal lung sounds bilaterally. Absent: respiratory distress, wheezes, rales, rhonchi, stridor Cardiovascular Exam: Present: regular rate, normal rhythm, normal heart sounds. Absent: systolic murmur, diastolic murmur, rubs, gallop, clicks GI/Abdominal exam: Present: soft, normal bowel sounds. Absent: distended, tenderness, guarding, rebound, rigid Back exam: Present: tenderness (Patient has tenderness over the thoracic spine.) , other (Patient has diffuse ecchymosis over the left aspect of her back. Ecchymosis extends from th the scapula to the sacrum. No abdominal bruising or tenderness. ). Absent: normal inspection Neurological exam: Present: alert, oriented X3, CN II-XII intact Psychiatric exam: Present: normal affect, normal mood Skin exam: Present: warm, dry, intact, other (Significant ecchymosis over the left side of the back.). Absent: normal color, rash <Emy Weeks - Last Filed: 10/06/17 22:36> - General Exam Comments Initial Comments: This is a pleasant alert and oriented 82-year-old female. (Emy Weeks) Vital Signs 10/06/17 10/06/17 10/06/17 16:54 19:04 19:18 Temperature 98.5 F 98 F Pulse Rate 60 56 L 55 L Respiratory 18 18 20 Rate Blood Pressure 103/46 111/48 103/49 O2 Sat by Pulse 95 96 96 Oximetry 10/06/17 10/06/17 10/06/17 19:24 19:31 21:07 Temperature Pulse Rate 55 L 53 L 63 Respiratory 14 16 16 Rate Blood Pressure 99/46 O2 Sat by Pulse 95 Oximetry - Reevaluation(s) Reevaluation #1: 10/06/17 20:14 I did personally do a [id number] evaluation the patient did discuss findings with her and her family patient will be admitted I did discuss the case also with Dr. Bella due to the high INR and the high potassium as well as renal sufficient patient will be admitted to the intensive care unit with consultation by Dr. Brian. (Mukesh Lewis) Medical Decision Making - Lab Data Result diagrams: 10/06/17 18:03 10/06/17 18:03 <Mukesh Lewis - Last Filed: 10/06/17 20:14> - Lab Data Result diagrams: 10/06/17 18:03 10/06/17 18:03 - Radiology Data Radiology results: report reviewed <MickyJanessaEmy - Last Filed: 10/06/17 22:36> - Medical Decision Making This is an 82-year-old female presents emergency Department today chief complaint of a fall on a Monday afternoon. It was related to a low blood sugar. She reports she is walking to the fridge because her blood sugar was low and passed out. There is a questionable loss of consciousness. Patient states that she had her life alert button. EMS arrived. Patient refused transport to the hospital at that time. Patient reports that she is on blood thinners. Since that time patient's developed significant ecchymosis over the left side of her back and reports it's very painful with any movements. Patient has significant ecchymosis noted over the back. Patient is tender over the thoracic spine. We will do lab work and patient is given IV fluids. It was noted the patient has a severely elevated INR of greater than 10. 5 g of vitamin K were given. Patient also has an elevated potassium of 6.8. Hyperkalemia protocol was ordered, insulin, Kayexalate, albuterol treatment was given. Also noted patient has significantly decreased renal function of the food GFR of 15.BUN of 62 creatinine of 2.8. Patient was given a liter boluses. Patient's x-rays show no acute bony abnormality's but there are multiple sclerotic changes within the entire skeletal consistent with metastatic disease. She does have a history of breast cancer. Patient will be admitted to ICU at this time for the elevated INR, hyperkalemia , and renal insufficiency. Dr. Lewis discussed this with Dr. Menchaca. We will consult travel nurse Dr. Brian. I discussed this with Dr. Rock. He agrees to admission. (Emy Weeks) - Lab Data Lab Results 10/06/17 10/06/17 10/06/17 Range/Units 18:03 18:03 18:03 WBC 11.6 H (3.8-10.6) k/uL RBC 3.15 L (3.80-5.40) m/uL Hgb 8.4 L (11.4-16.0) gm/dL Hct 26.5 L (34.0-46.0) % MCV 84.2 (80.0-100.0) fL MCH 26.8 (25.0-35.0) pg MCHC 31.8 (31.0-37.0) g/dL RDW 15.0 (11.5-15.5) % Plt Count 296 (150-450) k/uL Neutrophils % 83 % Lymphocytes % 10 % Monocytes % 5 % Eosinophils % 1 % Basophils % 0 % Neutrophils # 9.6 H (1.3-7.7) k/uL Lymphocytes # 1.1 (1.0-4.8) k/uL Monocytes # 0.5 (0-1.0) k/uL Eosinophils # 0.1 (0-0.7) k/uL Basophils # 0.0 (0-0.2) k/uL PT 116.4 H (9.0-12.0) sec INR >10.0 H* (<1.2) APTT 52.1 H (22.0-30.0) sec Sodium 139 (137-145) mmol/L Potassium 6.8 H* (3.5-5.1) mmol/L Chloride 111 H (98-107) mmol/L Carbon Dioxide 22 (22-30) mmol/L Anion Gap 6 mmol/L BUN 62 H (7-17) mg/dL Creatinine 2.80 H (0.52-1.04) mg/dL Est GFR (CKD-EPI)AfAm 18 (>60 ml/min/1.73 sqM) Est GFR (CKD-EPI)NonAf 15 (>60 ml/min/1.73 sqM) Glucose 221 H (74-99) mg/dL Plasma Lactic Acid Frank (0.7-2.0) mmol/L Calcium 10.1 (8.4-10.2) mg/dL Magnesium 2.5 H (1.6-2.3) mg/dL Total Bilirubin 0.2 (0.2-1.3) mg/dL AST 29 (14-36) U/L ALT 71 H (9-52) U/L Alkaline Phosphatase 72 (38-126) U/L Creatine Kinase (30-135) U/L Troponin I (0.000-0.034) ng/mL Total Protein 6.2 L (6.3-8.2) g/dL Albumin 3.2 L (3.5-5.0) g/dL 10/06/17 10/06/17 10/06/17 Range/Units 18:03 18:03 18:03 WBC (3.8-10.6) k/uL RBC (3.80-5.40) m/uL Hgb (11.4-16.0) gm/dL Hct (34.0-46.0) % MCV (80.0-100.0) fL MCH (25.0-35.0) pg MCHC (31.0-37.0) g/dL RDW (11.5-15.5) % Plt Count (150-450) k/uL Neutrophils % % Lymphocytes % % Monocytes % % Eosinophils % % Basophils % % Neutrophils # (1.3-7.7) k/uL Lymphocytes # (1.0-4.8) k/uL Monocytes # (0-1.0) k/uL Eosinophils # (0-0.7) k/uL Basophils # (0-0.2) k/uL PT (9.0-12.0) sec INR (<1.2) APTT (22.0-30.0) sec Sodium (137-145) mmol/L Potassium (3.5-5.1) mmol/L Chloride (98-107) mmol/L Carbon Dioxide (22-30) mmol/L Anion Gap mmol/L BUN (7-17) mg/dL Creatinine (0.52-1.04) mg/dL Est GFR (CKD-EPI)AfAm (>60 ml/min/1.73 sqM) Est GFR (CKD-EPI)NonAf (>60 ml/min/1.73 sqM) Glucose (74-99) mg/dL Plasma Lactic Acid Frank 1.1 (0.7-2.0) mmol/L Calcium (8.4-10.2) mg/dL Magnesium (1.6-2.3) mg/dL Total Bilirubin (0.2-1.3) mg/dL AST (14-36) U/L ALT (9-52) U/L Alkaline Phosphatase (38-126) U/L Creatine Kinase 225 H (30-135) U/L Troponin I 0.025 (0.000-0.034) ng/mL Total Protein (6.3-8.2) g/dL Albumin (3.5-5.0) g/dL 10/06/17 19:25 EKG performed at 1853 shows sinus tach with complete heart block wide QRS rhythm. Right bundle nicholas block. Ventricular rate of 57 beats were minute. [place] interval undetected. QRS duration 122 ms. QT QTc 420/408 ms. (Emy Weeks) - Radiology Data Thoracic spine x-ray shows multifocal sclerotic skeletal foci. Likely metastatic breast carcinoma. There is no fracture or malalignment noted of the pelvis. Previously noted sclerotic skeletal foci are noted again a greater degree presently. Most likely secondary due to metastatic breast carcinoma. Soft tissues are unremarkable. Chest x-ray was reviewed lungs are clear. No normal thorax or pleural effusion. Skeletal structures are negative for fractures. (Emy Weeks) Disposition <Mukesh Lewis - Last Filed: 10/06/17 20:14> Time of Disposition: 19:48 <Emy Weeks - Last Filed: 10/06/17 22:36> Clinical Impression: Hyperkalemia, Supratherapeutic INR, Frequent falls, ARF (acute renal failure), Dehydration, Paroxysmal a-fib, Weakness Disposition: ADMITTED IP TO THIS HOSP Condition: Stable
[2017-10-06 18:14] LABS: Basophils % (A) 0 %; Eosinophils # (A) 0.1 k/uL (0-0.7); Eosinophils % (A) 1 %; HCT 26.5 % (34.0-46.0); HGB 8.4 gm/dL (11.4-16.0); Lymphocytes # (A) 1.1 k/uL (1.0-4.8); Lymphocytes % (A) 10 %; MCH 26.8 pg (25.0-35.0); MCHC 31.8 g/dL (31.0-37.0); MCV 84.2 fL (80.0-100.0); Mean Platelet Volume 7.2; Monocytes # (A) 0.5 k/uL (0-1.0); Monocytes % (A) 5 %; Neutrophils # (A) 9.6 k/uL (1.3-7.7); Neutrophils % (A) 83 %; Platelet Count 296 k/uL (150-450); RBC 3.15 m/uL (3.80-5.40); WBC 11.6 k/uL (3.8-10.6)
[2017-10-06 18:23] LABS: Albumin 3.2 g/dL (3.5-5.0); Total Bilirubin 0.2 mg/dL (0.2-1.3); Total Protein 6.2 g/dL (6.3-8.2)
[2017-10-06 18:26] LABS: Partial Thromboplastin Time 52.1 sec (22.0-30.0)
[2017-10-06 18:31] LABS: Prothrombin Time 116.4 sec (9.0-12.0)
[2017-10-06 18:34] LABS: INR >10.0 (<1.2)
[2017-10-06 18:50] LABS: Calcium 10.1 mg/dL (8.4-10.2); Magnesium 2.5 mg/dL (1.6-2.3)
[2017-10-06 18:51] LABS: Potassium 6.8 mmol/L (3.5-5.1)
[2017-10-06] MEDS ORDERED: PHYTONADIONE 5 MG in SODIUM CHLORIDE 0.9% 50 ML IVPB STA (18:52)
[2017-10-06] MEDS ORDERED: DEXTROSE 50%-WATER 50 ML SYRINGE IVP ONE (19:03)
[2017-10-06] MEDS ORDERED: INSULIN REGULAR 100 UNIT/ML VIAL IV ONE (19:03)
[2017-10-06] MEDS ORDERED: SODIUM POLYSTYRENE SULFONATE 15 GM/60 ML BOTTLE PO ONE (19:03)
[2017-10-06] MEDS ORDERED: ALBUTEROL NEB (CONC) 2.5 MG/0.5 ML INHALATION ONE (19:03)
--- NOTE | 2017-10-06 19:11 | XR ---
PROCEDURE: XR pelvis AP view DATE AND TIME: 10/06/2017 6:46 PM REFERRING PHYSICIAN: Emy eWeks CLINICAL INDICATION: PHH, Pain after fall TECHNIQUE: Department protocol. COMPARISON: 04/12/2016 FINDINGS: There is no fracture or malalignment. The previously noted sclerotic skeletal foci are note d again, greater in degree presently, presumably secondary to metastatic breast carcinoma. The soft t issues are unremarkable. IMPRESSION: 1. NO ACUTE PROCESS. 2. Multifocal sclerotic skeletal foci.
--- NOTE | 2017-10-06 19:13 | XR ---
PROCEDURE: XR lumbar spine 3V DATE AND TIME: 10/06/2017 6:45 PM REFERRING PHYSICIAN: Emy Weeks CLINICAL INDICATION: PHH, Pain from fall TECHNIQUE: Department protocol. COMPARISON: None FINDINGS: There is no fracture or malalignment. Innumerable sclerotic skeletal foci are noted, presum ably metastatic breast carcinoma. The soft tissues are unremarkable. IMPRESSION: 1. NEGATIVE FOR FRACTURE OR MALALIGNMENT. 2. Multifocal sclerotic skeletal foci.
--- NOTE | 2017-10-06 19:16 | XR ---
PROCEDURE: XR thoracic spine 4V DATE AND TIME: 10/06/2017 6:46 PM REFERRING PHYSICIAN: mEy Weeks CLINICAL INDICATION: PHH, Pain after fall TECHNIQUE: Department protocol. COMPARISON: None FINDINGS: There is no fracture or malalignment. There are multilevel sclerotic foci throughout the sk eletal structures, likely metastatic breast carcinoma. The soft tissues are unremarkable. IMPRESSION: 1. NO ACUTE PROCESS. 2. Multifocal sclerotic skeletal foci.
--- NOTE | 2017-10-06 19:18 | XR ---
EXAMINATION: XR chest 2V DATE AND TIME: 10/06/2017 6:46 PM ORDERING PROVIDER: Emy Weeks CLINICAL INDICATION: fall pain TECHNIQUE: AP and lateral COMPARISON: 11/26/2016 DESCRIPTION: The lungs are clear. No pneumothorax. No pleural effusion. The cardiac silhouette is not enlarged. The mediastinal and pleural silhouettes are unremarkable. The skeletal structures are negative for fractures, but multifocal sclerotic foci are noted, likely m etastatic breast carcinoma. The soft tissues are unremarkable. IMPRESSION: 1. NO ACUTE PROCESS. 2. Multifocal sclerotic foci, likely metastatic breast carcinoma.
[2017-10-06] MEDS ORDERED: NALOXONE 0.4 MG/ML 1 ML VIAL IV PRN (19:48)
[2017-10-06] MEDS ORDERED: ONDANSETRON 4 MG/2 ML VIAL IVP PRN (19:48)
[2017-10-06] MEDS ORDERED: MORPHINE SULFATE 4 MG/ML SYRINGE IVP PRN (19:48)
[2017-10-06] MEDS ORDERED: MORPHINE SULFATE 4 MG/ML SYRINGE IV PRN (19:48)
[2017-10-06] MEDS ORDERED: ALBUTEROL NEBULIZED 2.5 MG/3 ML INHALATION SCH (20:30)
[2017-10-06] MEDS: SODIUM CHLORIDE 0.9% 1,000 ML IV SCH (20:33)
[2017-10-06] MEDS ORDERED: ALBUTEROL NEBULIZED 2.5 MG/3 ML INHALATION PRN (21:27)
[2017-10-06 22:12] LABS: Glucose,Whole Blood 258 mg/dL (75-99)
[2017-10-06] MEDS ORDERED: ALPRAZolam 0.25 MG TAB PO PRN (22:57)
[2017-10-06 23:25] LABS: Albumin 2.8 g/dL (3.5-5.0); Magnesium 2.3 mg/dL (1.6-2.3); Phosphorus 2.9 mg/dL (2.5-4.5); Potassium 6.1 mmol/L (3.5-5.1); Total Bilirubin 0.3 mg/dL (0.2-1.3); Total Protein 5.3 g/dL (6.3-8.2)
[2017-10-06 23:29] LABS: Appearance,Urine Clear (Clear); Bilirubin,Urine Negative (Negative); Blood,Urine Small (Negative); Color,Urine Yellow; Glucose,Urine (UA) 2+ (Negative); Hyaline Casts,Urine 1 /lpf (0-2); Ketones,Urine Negative (Negative); Leukocyte Esterase,Urine Trace (Negative); Mucus,Urine Rare /hpf; Nitrite,Urine Negative (Negative); PH, Urine 5.5 (5.0-8.0); Protein,Urine Negative (Negative); RBC,Urine 3 /hpf (0-5); Specific Gravity,Urine 1.014 (1.001-1.035); Squamous Epithelial Cell,Urine <1 /hpf (0-4); Urobilinogen,Urine <2.0 mg/dL (<2.0); WBC,Urine 7 /hpf (0-5)
[2017-10-06 23:35] LABS: Glucose,Whole Blood 291 mg/dL (75-99)
[2017-10-06] MEDS: INSULIN ASPART 100 UNIT/ML 1 ML 10 ML VIAL SQ SCH ×2 (23:37)
[2017-10-07] MEDS ORDERED: SODIUM CHLORIDE 0.9% 500 ML IV ONE (00:10)
[2017-10-07 00:29] VITALS: BMI 41.0
[2017-10-07] MEDS: SODIUM CHLORIDE 0.9% 1,000 ML IV SCH ×3 (03:54→22:45)
[2017-10-07 05:08] LABS: Basophils % (A) 0 %; Eosinophils % (A) 0 %; HCT 24.5 % (34.0-46.0); HGB 7.8 gm/dL (11.4-16.0); Hypochromasia Slight; Lymphocytes # (A) 1.3 k/uL (1.0-4.8); Lymphocytes % (A) 12 %; MCH 27.3 pg (25.0-35.0); MCHC 31.7 g/dL (31.0-37.0); MCV 86.2 fL (80.0-100.0); Mean Platelet Volume 7.5; Monocytes # (A) 0.7 k/uL (0-1.0); Monocytes % (A) 6 %; Neutrophils # (A) 8.4 k/uL (1.3-7.7); Neutrophils % (A) 78 %; Platelet Count 240 k/uL (150-450); RBC 2.84 m/uL (3.80-5.40); RDW 15.3 % (11.5-15.5); WBC 10.7 k/uL (3.8-10.6)
[2017-10-07 05:16] LABS: INR 1.9 (<1.2); Prothrombin Time 17.7 sec (9.0-12.0)
[2017-10-07 05:18] LABS: Calcium 8.4 mg/dL (8.4-10.2); Magnesium 2.2 mg/dL (1.6-2.3); Phosphorus 2.7 mg/dL (2.5-4.5)
[2017-10-07 05:42] LABS: Potassium 6.5 mmol/L (3.5-5.1)
[2017-10-07] MEDS ORDERED: FUROSEMIDE 10 MG/ML 4 ML VIAL IV STA (05:53)
[2017-10-07] MEDS ORDERED: INSULIN REGULAR 100 UNIT/ML VIAL IV ONE (05:54)
[2017-10-07] MEDS ORDERED: SODIUM POLYSTYRENE SULFONATE 15 GM/60 ML BOTTLE PO STA (05:56)
[2017-10-07 06:02] LABS: Glucose,Whole Blood 203 mg/dL (75-99)
--- NOTE | 2017-10-07 07:15 | XR ---
EXAMINATION TYPE: XR chest 1V portable DATE OF EXAM: 10/07/2017 HISTORY: HX fall pain. REFERENCE: Previous study dated 10/06/2017. FINDINGS: Pulmonary vasculature has improved. Lungs appear clear. I suspect a tiny left effusion. The heart is minimally enlarged. IMPRESSION: IMPROVING CHANGES OF PULMONARY EDEMA.
--- NOTE | 2017-10-07 07:40 | HP ---
HISTORY AND PHYSICAL DATE OF SERVICE: 10/06/2017 I am covering for Dr. Turner. CHIEF COMPLAINTS: Back pain, hyperkalemia and renal failure. HISTORY OF PRESENT ILLNESS: This 82-year-old woman with a past history of diabetes, history of DVT, hypertension, and memory impairment, being followed by Dr. Turner in the outpatient setting, apparently had a fall about Monday afternoon and there is a possibility of hypoglycemia. The patient was walking to the fridge and patient passed out. The patient apparently had bruise on the left posterior part of the shoulder and left upper part of the chest and the patient refused transfer to hospital at that time, but subsequently patient had a 2nd fall and the patient was taken to [facility] and admitted for further evaluation and treatment. There is no history of any fever, rigors. No headache, loss of consciousness, seizures. At the time of admission the INR found to be more than 10. Patient has extensive bruising of the left posterior part of the shoulder and chest and potassium found to be 6.8. Creatinine is 2.80 and creatine kinase 225. The patient admitted for evaluation and treatment. There is no history of fever, rigors, chills. No history of chest pain, palpitation at this time. PAST MEDICAL HISTORY: History of diabetes mellitus type 2, DVT, history of hypertension, memory impairment. MEDICATIONS: Prior to admission includes home medications are: 1. Lopressor 25 mg p.o. b.i.d. 2. Lantus 30 units subcu q.h.s. 3. Aspirin 81 mg daily. 4. Arimidex 7 mg p.o. daily. 5. Glyburide metformin 1 tab p.o. b.i.d. 6. Aleve 440 mg p.o. daily. 7. Lasix 40 mg. 8. Iron sulfate 320 mg daily. 9. Coumadin 3 mg Monday, Monday, Monday, . 10.Tylenol 650 q.6 p.r.n. ALLERGIES: CODEINE. FAMILY HISTORY: Diabetes in the family. SOCIAL HISTORY: No history of smoking. No history of alcohol intake. REVIEW OF SYSTEMS: ENT: No diminished hearing or vision. CARDIOVASCULAR: As mentioned. RESPIRATORY: As mentioned earlier. GI: No nausea. : No dysuria. NERVOUS SYSTEMS: As mentioned. ALLERGIES/IMMUNOLOGY: No asthma or hayfever. MUSCULOSKELETAL: As mentioned earlier. HEMATOLOGY: No history of anemia. ENDOCRINE: As mentioned earlier. CONSTITUTIONAL: As mentioned earlier. DERMATOLOGY: Negative. RHEUMATOLOGY: Negative. PSYCHIATRY: As mentioned earlier. PHYSICAL EXAMINATION: Alert and oriented x3. Pulse is 55, blood pressure 103/49, respiration 20, temperature 98 degrees, pulse ox 98% on room air. HEENT: Conjunctivae normal. Oral mucosa moist. Neck is no jugular venous distention. No carotid bruit. No lymph node enlargement. CARDIOVASCULAR: S1, S2. No S3, no S4. RESPIRATORY: Breath sounds diminished in the bases. A few scattered rhonchi and crackles. ABDOMEN: Soft, obese, nontender. No mass palpable. LEGS: Minimal bilateral leg edema. NERVOUS SYSTEM: Higher functions as mentioned earlier. Moves all four limbs with mild diffuse weakness. LYMPHATICS: No lymphadenopathy in the neck, axillae, groin. SKIN: Extensive bruising on the left lower posterior shoulder present. JOINTS: No active deforming arthropathy. LABS: WBC 7.2, hemoglobin is 8.4, INR is more than 10. Sodium 139, potassium 6.8, creatinine is 2.8. ASSESSMENT: 1. Acute renal failure possibly prerenal with acute tubular necrosis with severe hyperkalemia. 2. Extensive bruise on the left back, possible rhabdomyolysis. 3. Coumadin coagulopathy. 4. Increased WBC. 5. Anemia. 6. Carcinoma of the breast with secondary possibly. 7. History of diabetes mellitus. 8. History of DVT. 9. Hypertension. 10.Hyperlipidemia. 11.History of memory impairment. 12.History of cholecystectomy. 13.History of right mastectomy. RECOMMENDATIONS AND DISCUSSION: This 82-year-old woman who presented with multiple complex medical issues, we will monitor the patient closely. Continue the current management and symptomatic treatment otherwise at this time. I would recommend a repeat potassium and will repeat Kayexalate as well as insulin glucose regimen also. Nephrology is being consulted. Dr. Bella's consulted for ICU management. Otherwise resume the rest of medications. Avoid JESSIKA inhibitors and hyperkalemic agents. We will gently hydrate the patient. Avoid Lasix. Hematology/Oncology evaluation. We will hold Coumadin. IV vitamin K has been given. NSAIDs also will be held. The prognosis is guarded because of multiple complex medical issues. Copy of dictation forwarded to Dr. Turner who is the primary physician. I would also hold the glyburide metformin combination as well. Antiplatelet agents also will be held. The prognosis guarded as mentioned earlier. Further recommendations to follow. MMODL / IJN: [id number] /
[2017-10-07] MEDS: PANTOPRAZOLE 40 MG/10 ML VIAL IV SCH (08:53)
[2017-10-07] MEDS: METOPROLOL TARTRATE 25 MG TAB PO SCH ×2 (08:53→21:29)
[2017-10-07] MEDS: ANASTROZOLE 1 MG TAB PO SCH (08:53)
[2017-10-07 10:50] LABS: Glucose,Whole Blood 143 mg/dL (75-99)
[2017-10-07] MEDS: INSULIN ASPART 100 UNIT/ML 1 ML 10 ML VIAL SQ SCH ×4 (10:51→21:30)
[2017-10-07 12:09] LABS: Hemoglobin A1C 6.4 % (4.0-6.0)
[2017-10-07 12:10] LABS: Albumin 2.7 g/dL (3.5-5.0); Calcium 8.5 mg/dL (8.4-10.2); Potassium 5.6 mmol/L (3.5-5.1); Total Bilirubin 0.4 mg/dL (0.2-1.3); Total Protein 5.1 g/dL (6.3-8.2)
--- NOTE | 2017-10-07 13:40 | P.CNPUL ---
History of Present Illness Consult date: 10/07/17 Requesting physician: [place] Reason for consult: other (Critical care management) Chief complaint: Syncopal episode History of present illness: This is a very pleasant 82-year-old female patient who follows with Dr. Turner as her primary care physician. She does have a history of breast cancer with bone metastasis diagnosed back in 2013 treated with right mastectomy and Arimidex, diabetes mellitus, DVT currently on warfarin, hyperlipidemia, hypertension, memory impairment. She is a lifelong nonsmoker. No pulmonary issues. She presented here to the emergency room yesterday with complaints of left-sided chest discomfort. This is following a syncopal episode and fall back on 10/03/2017. She felt that was secondary to a low blood sugar EMS had been called at the time but the patient refused transfer to the emergency room. She had fallen a week ago as well. She had recently been treated for urinary tract infection and just completed Bactrim. X-rays of the thoracic, lumbar and pelvis all revealed no acute fracture. Chest x-ray showed no acute pulmonary process. Lab results revealed INR greater than 10, potassium 6.1, bicarb 18, creatinine 2.60, white count 11.6, hemoglobin 8.4 and AST 44, ALT 66 month glucose 259. Based on these abnormalities she was admitted to the intensive care unit. She is seen today in consultation. She is currently awake and alert in no acute distress. She is having some ongoing discomfort on her left side from her previous fall. There is ecchymosis noted on the left chest. INR is improved 1.9. Hemoglobin 7.8. Potassium 5.6. Creatinine 2.71. AST 63, ALT 101, CPK 217. She has remained hemodynamically stable. She's afebrile. Maintaining good O2 saturations in the high 90s on 2 L/m per nasal cannula. She has a 0.9 normal saline at 120 mL's per hour. Nephrology is on the case as well. Review of Systems 14 point review of system was conducted. All negative other than as mentioned in the HPI. Past Medical History Past Medical History: Cancer, Diabetes Mellitus, Deep Vein Thrombosis (DVT), Hyperlipidemia, Hypertension, Memory Impairment Additional Past Medical History / Comment(s): hx. breast cancer-2013, metastasis to spine-gets tx. DVT leg years ago, uses walker, bone CA-sees dr hu, History of Any Multi-Drug Resistant Organisms: None Reported Past Surgical History: Breast Surgery, Cholecystectomy, Heart Catheterization, Tubal Ligation Additional Past Surgical History / Comment(s): right mastectomy, cataracts removed, excision of lesion rt cheek, steroid inj in past for heel spur, lithotripsy Past Anesthesia/Blood Transfusion Reactions: No Reported Reaction Past Psychological History: No Psychological Hx Reported Smoking Status: Never smoker Past Alcohol Use History: None Reported Past Drug Use History: None Reported - Past Family History Mother Family Medical History: Diabetes Mellitus Father Family Medical History: Congestive Heart Failure (CHF) Medications and Allergies Home Medications Medication Instructions Recorded Confirmed Type Anastrozole [Arimidex] 1 mg PO DAILY 05/14/15 10/06/17 History Acetaminophen Tab [Tylenol] 650 mg PO Q6HR PRN #0 tab 04/20/16 10/06/17 Rx Metoprolol Tartrate [Lopressor] 25 mg PO BID tab 04/20/16 10/06/17 Rx Warfarin [Coumadin] 3 mg PO MOTUWETH 11/26/16 10/06/17 History glyBURIDE/METFORMIN HCL 1 tab PO BID 11/26/16 10/06/17 History [glyBURIDE/METFORMIN HCL 5-500 mg] Insulin Glargine [Lantus] 30 unit SQ HS 12/02/16 10/06/17 History Aspirin [Adult Low Dose Aspirin EC] 81 mg PO DAILY 10/06/17 10/06/17 History Ferrous Sulfate [Feosol] 325 mg PO DAILY 10/06/17 10/06/17 History Furosemide [Lasix] 40 mg PO DAILY 10/06/17 10/06/17 History Naproxen Sodium [Aleve] 440 mg PO DAILY 10/06/17 10/06/17 History Allergies Allergy/AdvReac Type Severity Reaction Status Date / Time codeine Allergy Abdominal Verified 10/06/17 17:42 Pain Physical Exam Vitals: Vital Signs Temp Pulse Resp BP Pulse Ox 10/07/17 13:00 74 20 134/64 93 L 10/07/17 12:00 97.7 F 68 19 134/46 99 10/07/17 11:00 62 20 115/54 96 10/07/17 10:00 62 20 112/43 96 10/07/17 09:00 61 20 132/56 98 10/07/17 08:00 98.2 F 59 L 16 119/54 100 10/07/17 07:34 99 10/07/17 07:00 58 L 32 H 124/54 93 L 10/07/17 06:30 48 L 13 115/46 97 10/07/17 06:00 49 L 29 H 121/63 99 10/07/17 05:30 50 L 22 119/41 99 10/07/17 05:00 51 L 13 135/51 97 10/07/17 04:30 49 L 23 113/47 97 10/07/17 04:00 50 L 13 104/54 97 10/07/17 03:30 98.3 F 50 L 16 96 10/07/17 03:00 69 24 110/47 98 10/07/17 02:30 48 L 23 113/58 99 10/07/17 02:00 50 L 25 H 116/40 96 10/07/17 01:30 58 L 19 94 L 10/07/17 01:00 58 L 17 155/59 88 L 10/07/17 00:30 55 L 16 126/53 95 10/07/17 00:09 57 L 27 H 117/54 82 L 10/07/17 00:00 97.9 F 53 L 14 120/43 99 10/06/17 23:45 55 L 18 123/49 98 10/06/17 23:30 58 L 28 H 109/54 99 10/06/17 23:15 54 L 20 104/44 97 10/06/17 23:00 53 L 24 96/44 95 10/06/17 22:45 55 L 22 116/48 92 L 10/06/17 22:30 59 L 24 110/54 91 L 10/06/17 22:15 59 L 22 110/54 93 L 10/06/17 22:00 98.0 F 67 26 H 110/41 89 L 10/06/17 21:09 86 10/06/17 21:07 63 16 99/46 95 10/06/17 19:31 53 L 16 10/06/17 19:24 55 L 14 10/06/17 19:18 98 F 55 L 20 103/49 96 10/06/17 19:04 56 L 18 111/48 96 10/06/17 16:54 98.5 F 60 18 103/46 95 Intake and Output 10/06/17 10/07/17 10/07/17 22:59 06:59 14:59 Intake Total 1460 1060 Output Total 310 360 Balance 1150 700 Intake: IV 1340 840 Sodium Chloride 0.9% 1, 1340 840 000 ml @ 120 mls/hr IV . Q8H20M [facility] Rx#:[id number] Oral 120 220 Output: Urine 310 360 Other: Voiding Method Indwelling Catheter Indwelling Catheter Weight 105 kg 103 kg GENERAL EXAM: Obese. Alert, oriented, comfortable in no apparent distress. HEAD: Normocephalic. EYES: Normal reaction of pupils, equal size. NOSE: Clear with pink turbinates. THROAT: No erythema or exudates. NECK: No masses, no JVD. CHEST: Ecchymosis along the lateral left chest, hip. LUNGS: Equal air entry with no crackles, wheeze, rhonchi or dullness. CVS: S1 and S2 normal with no audible murmur, regular rhythm. ABDOMEN: No hepatosplenomegaly, normal bowel sounds, no guarding or rigidity. SPINE: No scoliosis or deformity SKIN: No rashes CENTRAL NERVOUS SYSTEM: No focal deficits, tone is normal in all 4 extremities. EXTREMITIES: There is no peripheral edema. No clubbing, no cyanosis. Peripheral pulses are intact. Results - Laboratory Findings CBC and BMP: 10/07/17 04:55 10/07/17 11:45 PT/INR, D-dimer PT 17.7 sec (9.0-12.0) H 10/07/17 04:55 INR 1.9 (<1.2) H 10/07/17 04:55 Abnormal lab findings: Abnormal Labs 10/06/17 10/06/17 10/06/17 18:03 18:03 18:03 WBC 11.6 H RBC 3.15 L Hgb 8.4 L Hct 26.5 L Neutrophils # 9.6 H PT 116.4 H INR >10.0 H* APTT 52.1 H Potassium 6.8 H* Chloride 111 H Carbon Dioxide BUN 62 H Creatinine 2.80 H Glucose 221 H POC Glucose (mg/dL) Magnesium 2.5 H AST ALT 71 H Creatine Kinase Total Protein 6.2 L Albumin 3.2 L Urine Glucose (UA) Urine Blood Ur Leukocyte Esterase Urine WBC Urine Mucus 03/10/06/17 10/06/17 18:03 21:47 22:16 WBC RBC Hgb Hct Neutrophils # PT INR APTT Potassium 6.1 H Chloride 109 H Carbon Dioxide 18 L BUN 64 H Creatinine 2.70 H Glucose 259 H POC Glucose (mg/dL) 258 H Magnesium AST 44 H ALT 66 H Creatine Kinase 225 H Total Protein 5.3 L Albumin 2.8 L Urine Glucose (UA) Urine Blood Ur Leukocyte Esterase Urine WBC Urine Mucus 10/06/17 10/06/17 10/07/17 23:00 23:32 04:55 WBC 10.7 H RBC 2.84 L Hgb 7.8 L Hct 24.5 L Neutrophils # 8.4 H PT INR APTT Potassium Chloride Carbon Dioxide BUN Creatinine Glucose POC Glucose (mg/dL) 291 H Magnesium AST ALT Creatine Kinase Total Protein Albumin Urine Glucose (UA) 2+ H Urine Blood Small H Ur Leukocyte Esterase Trace H Urine WBC 7 H Urine Mucus Rare H 10/07/17 10/07/17 10/07/17 04:55 04:55 06:00 WBC RBC Hgb Hct Neutrophils # PT 17.7 H INR 1.9 H APTT Potassium 6.5 H* Chloride 110 H Carbon Dioxide 20 L BUN 64 H Creatinine 2.70 H Glucose 208 H POC Glucose (mg/dL) 203 H Magnesium AST ALT Creatine Kinase 217 H Total Protein Albumin Urine Glucose (UA) Urine Blood Ur Leukocyte Esterase Urine WBC Urine Mucus 10/07/17 10/07/17 10:46 11:45 WBC RBC Hgb Hct Neutrophils # PT INR APTT Potassium 5.6 H Chloride 111 H Carbon Dioxide 19 L BUN 65 H Creatinine 2.71 H Glucose 127 H POC Glucose (mg/dL) 143 H Magnesium AST 63 H ALT 101 H Creatine Kinase Total Protein 5.1 L Albumin 2.7 L Urine Glucose (UA) Urine Blood Ur Leukocyte Esterase Urine WBC Urine Mucus - Diagnostic Findings Chest x-ray: image reviewed Assessment and Plan Assessment: Impression: #1 Left-sided chest wall, hip and leg pain status post fall a few days prior secondary to suspected hypoglycemic reaction. Unclear of loss of consciousness. No fractures per serial x-rays. #2 Acute renal failure current creatinine 2.71. #3 Hyperkalemia secondary to above. Current potassium 5.6. #4 Hypercoagulopathy with presenting INR greater than 10.0. Current INR 1.9. #5 Acute anemia presenting hemoglobin 8.4, currently 7.8. #6 Elevated LFTs. #7 Diabetes mellitus, type II. #8 History of breast cancer with bone metastasis diagnosed in 2013. Remains on Arimidex. #9 History of DVT maintained on warfarin supra therapeutic. #10 Recent frequent falls. #11 Hypertension. #12 Memory impairment. Concerns regarding medication compliance. The patient lives alone. Plan: The patient was seen and evaluated by Dr. Bella. She is currently stable from the pulmonary and critical care standpoint. She can be transferred out of the intensive care unit later today once her potassium is less than 5.5. Nephrology is on the case as well. We'll continue to monitor her blood work closely. We will continue to follow and make further recommendations based on her clinical status. I, the cosigning physician, performed a history & physical examination of the patient. Lungs sounds are clear. Maintaining good O2 saturations in the 90s on 2 L/m per nasal cannula. I discussed the assessment and plan of care with my nurse practitioner, Katerine Ames. I attest to the above consultation as dictated by her. Time with Patient: Greater than 30
[2017-10-07 14:25] LABS: Glucose,Whole Blood 171 mg/dL (75-99)
--- NOTE | 2017-10-07 15:32 | CONS ---
CONSULTATION DATE OF CONSULTATION: 10/07/2017. REASON FOR CONSULTATION: Renal failure, hyperkalemia. HISTORY OF PRESENT ILLNESS: Patient is an 82-year-old female who was admitted yesterday with the complaints of weakness and fall. The patient states that she just passed out. She did not have any chest pain, shortness of breath. No palpitations. She does not remember tripping. She has sustained a large bruise on the left shoulder and left side of the chest. The patient denies any prior history of kidney disease. She had been taking Aleve at home. Blood pressure was low when patient came in with systolic in the 90s. Potassium was elevated at 6.8 mEq/L. The patient has received Kayexalate and IV Lasix. Serum potassium is down to 5.6 now. Currently patient is comfortable. She is not having any nausea, vomiting or diarrhea. Serum creatinine was 2.8 mg/dL yesterday. It is down to 2.7 today. The patient did not require any pressors. Currently, she has IV fluids at 50 mL an hour. PAST MEDICAL HISTORY: Type 2 diabetes, history of DVT, hyperlipidemia, hypertension, history of breast cancer with mets to the spine, being followed by Dr. Staples. PAST SURGICAL HISTORY: Breast surgery, cholecystectomy, right mastectomy, cardiac catheterization, tubal ligation, lithotripsy, surgery on right heel for right heel spur. SOCIAL HISTORY: Negative for smoking, drug abuse or alcohol abuse. REVIEW OF SYSTEMS: As per HPI. Other systems negative on exam. MEDICATIONS: Medications at home prior to admission included Coumadin, metformin, insulin, iron, Lasix, Aleve, Lopressor, Tylenol. ALLERGIES: Include CODEINE. PHYSICAL EXAMINATION: Patient is comfortable, awake, alert, oriented x3. She is not in any acute distress. Blood pressure is 134/64, heart rate 74 per minute. Patient is afebrile. Examination of the heart: S1, S2. Examination lungs: Bilateral breath sounds are heard. Abdomen is soft, nontender. Examination lower extremities shows no evidence of edema. WATER HAULER exam is grossly intact. LAB: Show sodium 139, potassium 5.6, chloride 111, BUN 65, serum creatinine 2.7. Hemoglobin was 7.8 g/dL. ASSESSMENT: 1. Acute kidney injury secondary to hypotension, hypoperfusion as well as NSAIDs, currently nonoliguric. Previous creatinine was about 1.0 in November of 2016. Continue with IV fluids for now. We will check an ultrasound of the kidneys. No nephrotoxic agents on board. 2. Hyperkalemia associated with acute kidney injury and use of NSAIDs, currently improved. We will hold off in any further Kayexalate. Maintain blood sugars below 150 and maintain patient on low-potassium diet. 3. Type 2 diabetes. 4. History of metastatic breast cancer. PLAN: Continue with IV fluids. Repeat labs in a.m. Check ultrasound of the kidneys. Repeat serum potassium level later on this evening. Thank you for this consultation. We will continue to follow the patient with you during her hospitalization. MMODL / IJN: [id number] /
--- NOTE | 2017-10-07 16:53 | PN ---
PROGRESS NOTE DATE OF SERVICE: 10/07/2017 I am covering for Dr. Turner. HISTORY OF PRESENT ILLNESS: This 82-year-old woman with a past medical history of multiple medical problems was admitted with back pain, hyperkalemia. Patient also had recently falls. Extensive ecchymoses also on the left side of the chest. Patient also reports the patient takes a significant amount of Aleve and also the patient likes potassium containing foods also. Please note that the patient also had severe hyperkalemia yesterday up to 6.5, currently is 5.8. The patient is more closely monitored in ICU and creatinine is elevated to 0.71. Her baseline creatinine is fluctuating between 1.1 and 2.5 during the past year. PAST MEDICAL HISTORY: Reviewed. REVIEW OF SYSTEMS: CARDIOVASCULAR: No angina. RESPIRATORY: As mentioned earlier. GI: As mentioned earlier. : No dysuria. NERVOUS SYSTEM: No numbness or weakness. CURRENT MEDICATIONS: 1. Tylenol 650 q.6h p.r.n. 2. Ventolin 2.5 q.4h p.r.n. 3. Xanax 0.5 t.i.d. 4. Arimidex. 5. NovoLog q.4h p.r.n. 6. Levemir 30 units subcu q.h.s. 7. Lopressor 25 mg b.i.d. 9. Narcan. 10.Zofran. 11.Protonix. PHYSICAL EXAMINATION: Patient is alert, oriented x2. Pulse is 66, blood pressure 101/41, respiration 18, temperature 97.8, pulse ox 94% on 2 L. HEENT: Conjunctivae normal. Oral mucosa moist. Neck is no jugular venous distention. No carotid bruit. No lymph node enlargement. CARDIOVASCULAR: S1, S2. RESPIRATORY: Breath sounds diminished in the bases. A few scattered rhonchi and crackles. Expiratory wheezing also present. ABDOMEN: Soft, nontender. No mass palpable. LEGS: No edema, no swelling. NERVOUS SYSTEM: Higher functions as mentioned earlier. Moves all four limbs. No focal deficits. LYMPHATICS: No lymphadenopathy in the neck, axillae, groin. SKIN: No ulcer, rash, bleeding. LABS: WBC 7.2, hemoglobin 7.8, INR is 1.9 and potassium 5.6. Creatinine is 2.71. ASSESSMENT: 1. Acute renal failure possibly prerenal with acute tubular necrosis, severe hyperkalemia. 2. Extensive bruise on the left back, possible rhabdomyolysis. 3. Coumadin coagulopathy on admission. 4. Increased WBC. 5. Anemia. 6. Carcinoma breast with secondary possibly. 7. History of diabetes mellitus type 2. 8. History of DVT. 9. Hypertension. 10.Hyperlipidemia. 11.History of memory impairment. 12.History of cholecystectomy. 13.History of right mastectomy. 14.FULL CODE. RECOMMENDATIONS AND DISCUSSION I recommend to continue current management and symptomatic treatment. Low potassium diet, Kayexalate. Monitor potassium closely. Continue insulin. Follow closely with Nephrology and Dr. Akbar also has been consulted. Otherwise repeat labs. Dr. Bella is following also. The labs have been ordered. Will monitor the creatine kinase also closely. DVT prophylaxis. INR is 1.9 this morning. Further recommendations to follow. See orders for details. Discussed with the patient and family at length. Dr. Turner will follow. MMYADIRAL / IJN: [id number] / [facility]ITALDominic
[2017-10-07 17:45] LABS: Glucose,Whole Blood 160 mg/dL (75-99)
[2017-10-07] MEDS: ACETAMINOPHEN TAB 325 MG TAB PO PRN (18:57)
[2017-10-07 19:00] LABS: HCT 21.2 % (34.0-46.0); Hypochromasia Slight; MCH 27.2 pg (25.0-35.0); MCHC 31.4 g/dL (31.0-37.0); MCV 86.6 fL (80.0-100.0); Mean Platelet Volume 7.1; Platelet Count 221 k/uL (150-450); RBC 2.45 m/uL (3.80-5.40); RDW 15.6 % (11.5-15.5); WBC 9.1 k/uL (3.8-10.6)
[2017-10-07 19:03] LABS: HGB 6.7 gm/dL (11.4-16.0)
[2017-10-07 20:15] LABS: Glucose,Whole Blood 209 mg/dL (75-99)
--- NOTE | 2017-10-07 20:19 | P.CONS ---
History of Present Illness - Reason for Consult Consult date: 10/07/17 Breast cancer, Anemia, Supratherapeutic INR Requesting physician: [place] - Chief Complaint Bruising - History of Present Illness Ms. 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 Her cancer history dates back to early 2011 when she started feeling a right breast mass. She did not seek medical attention however until November 2013 when she finally agreed to have a mammogram that showed a large suspicious mass in the left breast. This was biopsied and pathology came back as invasive carcinoma. On 11/28/13 she had a right mastectomy and axillary node dissection with final pathology revealing a grade 2 invasive ductal carcinoma, 4.5 cm, with 2 positive lymph nodes, one with microscopic 1 with macroscopic disease measuring 2.5 cm, ER/WI strongly positive, HER-2 2+ by IHC and negative by FISH. She underwent a staging PET/CT on 12/14/13 which revealed diffuse metastatic disease in the bones but no other areas of disease. In December 2013 she was started on Arimidex and has been on this since then. Soon after starting Arimidex there was concern for cord compression however thoracic spine MRI was done on 01/27/14 and revealed multiple soft tissue masses at the thoracic spine for which she underwent radiation therapy which was completed on 02/28/14. With the discovery of the bone metastases she was initially started on monthly Zometa and soon switched to X [place] and has been on this since then. Her restaging imaging including a bone scan from 11/24/14 which showed improved bone metastases followed by a CT from 12/18/15 and again on with stable disease. She has been following with Dr. Staples. Has had recurrent falls as well. She was admitted in November 2016 for a fall. Now comes in with a fall a few days ago. Denies loss of consciousness. Denies any other symptoms. She began having increasing bruising on her body with large areas of ecchymosis and ended up in the hospital with a potassium of 6.8, creatinine 2.8, and an INR of over 10. Her CBC has shown slight leukocytosis at 10.7, significant drop in hemoglobin from 11 6 down to 7.8, and normal platelets at 240. She has been on Coumadin for prior recurrent DVTs. She did receive IV vitamin K with improvement of the INR to 1.9. Renal dysfunction and hyperkalemia also being treated and nephrology consulted. Review of Systems All systems: negative Constitutional: Reports as per HPI Past Medical History Past Medical History: Cancer, Diabetes Mellitus, Deep Vein Thrombosis (DVT), Hyperlipidemia, Hypertension, Memory Impairment Additional Past Medical History / Comment(s): hx. 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 DVT leg years ago, uses walker, bone CA-sees dr staples, History of Any Multi-Drug Resistant Organisms: None Reported Past Surgical History: Breast Surgery, Cholecystectomy, Heart Catheterization, Tubal Ligation Additional Past Surgical History / Comment(s): right mastectomy, cataracts removed, excision of lesion rt cheek, steroid inj in past for heel spur, lithotripsy Past Anesthesia/Blood Transfusion Reactions: No Reported Reaction Past Psychological History: No Psychological Hx Reported Smoking Status: Never smoker Past Alcohol Use History: None Reported Past Drug Use History: None Reported - Past Family History Mother Family Medical History: Diabetes Mellitus Father Family Medical History: Congestive Heart Failure (CHF) Medications and Allergies Home Medications Medication Instructions Recorded Confirmed Type RX: Anastrozole [Arimidex] 1 mg PO DAILY 05/14/15 10/06/17 History RX: Acetaminophen Tab [Tylenol] 650 mg PO Q6HR PRN #0 tab 04/20/16 10/06/17 Rx RX: Metoprolol Tartrate [Lopressor] 25 mg PO BID tab 04/20/16 10/06/17 Rx RX: Warfarin [Coumadin] 3 mg PO MOTUWETH 11/26/16 10/06/17 History RX: glyBURIDE/METFORMIN HCL 1 tab PO BID 11/26/16 10/06/17 History [glyBURIDE/METFORMIN HCL 5-500 mg] RX: Insulin Glargine [Lantus] 30 unit SQ HS 12/02/16 10/06/17 History Aspirin [Adult Low Dose Aspirin EC] 81 mg PO DAILY 10/06/17 10/06/17 History Ferrous Sulfate [Feosol] 325 mg PO DAILY 10/06/17 10/06/17 History Furosemide [Lasix] 40 mg PO DAILY 10/06/17 10/06/17 History Naproxen Sodium [Aleve] 440 mg PO DAILY 10/06/17 10/06/17 History Allergies Allergy/AdvReac Type Severity Reaction Status Date / Time codeine Allergy Abdominal Verified 10/06/17 17:42 Pain Physical Exam Vitals: Vital Signs Temp Pulse Resp BP Pulse Ox 10/07/17 15:00 97.9 F 66 18 111/41 95 10/07/17 14:00 73 20 117/45 93 L 10/07/17 13:00 74 20 134/64 93 L 10/07/17 12:00 97.7 F 68 19 134/46 99 10/07/17 11:00 62 20 115/54 96 10/07/17 10:00 62 20 112/43 96 10/07/17 09:00 61 20 132/56 98 10/07/17 08:00 98.2 F 59 L 16 119/54 100 10/07/17 07:34 99 10/07/17 07:00 58 L 32 H 124/54 93 L 10/07/17 06:30 48 L 13 115/46 97 10/07/17 06:00 49 L 29 H 121/63 99 10/07/17 05:30 50 L 22 119/41 99 10/07/17 05:00 51 L 13 135/51 97 10/07/17 04:30 49 L 23 113/47 97 10/07/17 04:00 50 L 13 104/54 97 10/07/17 03:30 98.3 F 50 L 16 96 10/07/17 03:00 69 24 110/47 98 10/07/17 02:30 48 L 23 113/58 99 10/07/17 02:00 50 L 25 H 116/40 96 10/07/17 01:30 58 L 19 94 L 10/07/17 01:00 58 L 17 155/59 88 L 10/07/17 00:30 55 L 16 126/53 95 10/07/17 00:09 57 L 27 H 117/54 82 L 10/07/17 00:00 97.9 F 53 L 14 120/43 99 10/06/17 23:45 55 L 18 123/49 98 10/06/17 23:30 58 L 28 H 109/54 99 10/06/17 23:15 54 L 20 104/44 97 10/06/17 23:00 53 L 24 96/44 95 10/06/17 22:45 55 L 22 116/48 92 L 10/06/17 22:30 59 L 24 110/54 91 L 10/06/17 22:15 59 L 22 110/54 93 L 10/06/17 22:00 98.0 F 67 26 H 110/41 89 L 10/06/17 21:09 86 10/06/17 21:07 63 16 99/46 95 10/06/17 19:31 53 L 16 10/06/17 19:24 55 L 14 10/06/17 19:18 98 F 55 L 20 103/49 96 10/06/17 19:04 56 L 18 111/48 96 Intake and Output 10/07/17 10/07/17 10/07/17 06:59 14:59 22:59 Intake Total 1460 1180 Output Total 310 390 Balance 1150 790 Intake: IV 1340 960 Sodium Chloride 0.9% 1, 1340 960 000 ml @ 120 mls/hr IV . Q8H20M [facility] Rx#:[id number] Oral 120 220 Output: Urine 310 390 Other: Voiding Method Indwelling Catheter Indwelling Catheter Indwelling Catheter Weight 103 kg Gen.: No acute distress HEENT: EOMI. Conjunctival pallor. Mucosa moist. Neck supple. Lymph: No cervical lymphadenopathy. Lungs: Clear to auscultation bilaterally. Heart: Regular rate and rhythm. Abdomen: Soft, nontender, nondistended, with positive bowel sounds. MSK: 4/4 strength in all 4 extremities. Neuro: Alert and oriented 3. Psych: Appropriate affect. Skin: Large ecchymosis on her torso and extremities. Results CBC & Chem 7: 10/07/17 18:25 10/07/17 18:25 Labs: Abnormal Lab Results - Last 24 Hours (Table) 10/06/17 10/06/17 10/06/17 Range/Units 18:03 18:03 18:03 WBC 11.6 H (3.8-10.6) k/uL RBC 3.15 L (3.80-5.40) m/uL Hgb 8.4 L (11.4-16.0) gm/dL Hct 26.5 L (34.0-46.0) % Neutrophils # 9.6 H (1.3-7.7) k/uL PT 116.4 H (9.0-12.0) sec INR >10.0 H* (<1.2) APTT 52.1 H (22.0-30.0) sec Potassium 6.8 H* (3.5-5.1) mmol/L Chloride 111 H (98-107) mmol/L Carbon Dioxide (22-30) mmol/L BUN 62 H (7-17) mg/dL Creatinine 2.80 H (0.52-1.04) mg/dL Glucose 221 H (74-99) mg/dL POC Glucose (mg/dL) (75-99) mg/dL Magnesium 2.5 H (1.6-2.3) mg/dL AST (14-36) U/L ALT 71 H (9-52) U/L Creatine Kinase (30-135) U/L Total Protein 6.2 L (6.3-8.2) g/dL Albumin 3.2 L (3.5-5.0) g/dL Urine Glucose (UA) (Negative) Urine Blood (Negative) Ur Leukocyte Esterase (Negative) Urine WBC (0-5) /hpf Urine Mucus (None) /hpf 10/06/17 10/06/17 10/06/17 Range/Units 18:03 21:47 22:16 WBC (3.8-10.6) k/uL RBC (3.80-5.40) m/uL Hgb (11.4-16.0) gm/dL Hct (34.0-46.0) % Neutrophils # (1.3-7.7) k/uL PT (9.0-12.0) sec INR (<1.2) APTT (22.0-30.0) sec Potassium 6.1 H (3.5-5.1) mmol/L Chloride 109 H (98-107) mmol/L Carbon Dioxide 18 L (22-30) mmol/L BUN 64 H (7-17) mg/dL Creatinine 2.70 H (0.52-1.04) mg/dL Glucose 259 H (74-99) mg/dL POC Glucose (mg/dL) 258 H (75-99) mg/dL Magnesium (1.6-2.3) mg/dL AST 44 H (14-36) U/L ALT 66 H (9-52) U/L Creatine Kinase 225 H (30-135) U/L Total Protein 5.3 L (6.3-8.2) g/dL Albumin 2.8 L (3.5-5.0) g/dL Urine Glucose (UA) (Negative) Urine Blood (Negative) Ur Leukocyte Esterase (Negative) Urine WBC (0-5) /hpf Urine Mucus (None) /hpf 10/06/17 10/06/17 10/07/17 Range/Units 23:00 23:32 04:55 WBC 10.7 H (3.8-10.6) k/uL RBC 2.84 L (3.80-5.40) m/uL Hgb 7.8 L (11.4-16.0) gm/dL Hct 24.5 L (34.0-46.0) % Neutrophils # 8.4 H (1.3-7.7) k/uL PT (9.0-12.0) sec INR (<1.2) APTT (22.0-30.0) sec Potassium (3.5-5.1) mmol/L Chloride (98-107) mmol/L Carbon Dioxide (22-30) mmol/L BUN (7-17) mg/dL Creatinine (0.52-1.04) mg/dL Glucose (74-99) mg/dL POC Glucose (mg/dL) 291 H (75-99) mg/dL Magnesium (1.6-2.3) mg/dL AST (14-36) U/L ALT (9-52) U/L Creatine Kinase (30-135) U/L Total Protein (6.3-8.2) g/dL Albumin (3.5-5.0) g/dL Urine Glucose (UA) 2+ H (Negative) Urine Blood Small H (Negative) Ur Leukocyte Esterase Trace H (Negative) Urine WBC 7 H (0-5) /hpf Urine Mucus Rare H (None) /hpf 10/07/17 10/07/17 10/07/17 Range/Units 04:55 04:55 06:00 WBC (3.8-10.6) k/uL RBC (3.80-5.40) m/uL Hgb (11.4-16.0) gm/dL Hct (34.0-46.0) % Neutrophils # (1.3-7.7) k/uL PT 17.7 H (9.0-12.0) sec INR 1.9 H (<1.2) APTT (22.0-30.0) sec Potassium 6.5 H* (3.5-5.1) mmol/L Chloride 110 H (98-107) mmol/L Carbon Dioxide 20 L (22-30) mmol/L BUN 64 H (7-17) mg/dL Creatinine 2.70 H (0.52-1.04) mg/dL Glucose 208 H (74-99) mg/dL POC Glucose (mg/dL) 203 H (75-99) mg/dL Magnesium (1.6-2.3) mg/dL AST (14-36) U/L ALT (9-52) U/L Creatine Kinase 217 H (30-135) U/L Total Protein (6.3-8.2) g/dL Albumin (3.5-5.0) g/dL Urine Glucose (UA) (Negative) Urine Blood (Negative) Ur Leukocyte Esterase (Negative) Urine WBC (0-5) /hpf Urine Mucus (None) /hpf 10/07/17 10/07/17 10/07/17 Range/Units 10:46 11:45 14:17 WBC (3.8-10.6) k/uL RBC (3.80-5.40) m/uL Hgb (11.4-16.0) gm/dL Hct (34.0-46.0) % Neutrophils # (1.3-7.7) k/uL PT (9.0-12.0) sec INR (<1.2) APTT (22.0-30.0) sec Potassium 5.6 H (3.5-5.1) mmol/L Chloride 111 H (98-107) mmol/L Carbon Dioxide 19 L (22-30) mmol/L BUN 65 H (7-17) mg/dL Creatinine 2.71 H (0.52-1.04) mg/dL Glucose 127 H (74-99) mg/dL POC Glucose (mg/dL) 143 H 171 H (75-99) mg/dL Magnesium (1.6-2.3) mg/dL AST 63 H (14-36) U/L ALT 101 H (9-52) U/L Creatine Kinase (30-135) U/L Total Protein 5.1 L (6.3-8.2) g/dL Albumin 2.7 L (3.5-5.0) g/dL Urine Glucose (UA) (Negative) Urine Blood (Negative) Ur Leukocyte Esterase (Negative) Urine WBC (0-5) /hpf Urine Mucus (None) /hpf Microbiology - Last 24 Hours (Table) 10/06/17 23:00 Urine Culture - Preliminary Urine,Catheterized Chest x-ray: report reviewed Assessment and Plan Assessment: 1. Metastatic breast cancer on Arimidex. 2. 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 Anemia from bleeding in the setting of a fall and elevated INR. 4. Hyperkalemia and MARIA T Plan: Mrs. Rudolph is a very pleasant 82-year-old female with history of multiple comorbidities including metastatic breast cancer on Arimidex and recurrent DVTs in the past on Coumadin who is here a few days after a fall leading to diffuse ecchymosis on her body, anemia, hyperkalemia, and MARIA T with a supratherapeutic INR. Agree with holding Coumadin and reversing the INR has has already been done. We 'll have to monitor her hemoglobin and if no further bleeding then she will need to be restarted on a heparin drip and slowly bridging back to Coumadin. We 'll ensure no vitamin deficiencies contributing to her anemia as well. As for her breast cancer would recommend continuing her Arimidex for now. I discussed this with the patient and she is agreeable to the plan. All of her questions were answered. We'll continue to follow her with you.
[2017-10-07] MEDS ORDERED: MORPHINE SULFATE/PF 10MG/10ML VL IVP PRN (20:25)
[2017-10-07 21:26] LABS: Glucose,Whole Blood 192 mg/dL (75-99)
[2017-10-07] MEDS: INSULIN DETEMIR 100 UNIT/ML 10 ML VIAL SQ SCH (21:33)
[2017-10-07 22:31] LABS: Iron Saturation 16.99 (12.00-45.00)
[2017-10-07 22:46] LABS: Folate, Serum 10.2 ng/mL
[2017-10-08] MEDS: INSULIN ASPART 100 UNIT/ML 1 ML 10 ML VIAL SQ SCH ×6 (01:46→22:08)
[2017-10-08 02:57] LABS: Basophils % (A) 0 %; Eosinophils # (A) 0.5 k/uL (0-0.7); Eosinophils % (A) 5 %; HCT 24.8 % (34.0-46.0); HGB 7.9 gm/dL (11.4-16.0); Lymphocytes # (A) 1.5 k/uL (1.0-4.8); Lymphocytes % (A) 18 %; MCH 27.1 pg (25.0-35.0); MCHC 31.9 g/dL (31.0-37.0); Mean Platelet Volume 7.2; Monocytes # (A) 0.5 k/uL (0-1.0); Monocytes % (A) 6 %; Neutrophils # (A) 5.8 k/uL (1.3-7.7); Neutrophils % (A) 68 %; Platelet Count 221 k/uL (150-450); RBC 2.91 m/uL (3.80-5.40); RDW 15.6 % (11.5-15.5); WBC 8.5 k/uL (3.8-10.6)
[2017-10-08 03:04] LABS: Calcium 8.4 mg/dL (8.4-10.2); Magnesium 2.1 mg/dL (1.6-2.3); Phosphorus 2.9 mg/dL (2.5-4.5); Potassium 4.6 mmol/L (3.5-5.1)
[2017-10-08 03:05] LABS: INR 1.3 (<1.2); Prothrombin Time 12.4 sec (9.0-12.0)
[2017-10-08 04:45] LABS: Glucose,Whole Blood 146 mg/dL (75-99)
[2017-10-08 05:59] LABS: Glucose,Whole Blood 87 mg/dL (75-99)
[2017-10-08] MEDS: SODIUM CHLORIDE 0.9% 1,000 ML IV SCH ×3 (06:03→22:09)
[2017-10-08] MEDS: METOPROLOL TARTRATE 25 MG TAB PO SCH ×2 (08:24→20:36)
[2017-10-08] MEDS: PANTOPRAZOLE 40 MG/10 ML VIAL IV SCH (08:24)
[2017-10-08] MEDS: ANASTROZOLE 1 MG TAB PO SCH (08:24)
[2017-10-08 09:22] LABS: Basophils % (A) 0 %; Eosinophils # (A) 0.5 k/uL (0-0.7); Eosinophils % (A) 5 %; HCT 25.5 % (34.0-46.0); HGB 7.9 gm/dL (11.4-16.0); Hypochromasia Moderate; Lymphocytes # (A) 1.2 k/uL (1.0-4.8); Lymphocytes % (A) 13 %; MCH 26.6 pg (25.0-35.0); MCHC 30.8 g/dL (31.0-37.0); MCV 86.3 fL (80.0-100.0); Mean Platelet Volume 7.5; Monocytes # (A) 0.6 k/uL (0-1.0); Monocytes % (A) 7 %; Neutrophils # (A) 6.8 k/uL (1.3-7.7); Neutrophils % (A) 73 %; Platelet Count 204 k/uL (150-450); RBC 2.96 m/uL (3.80-5.40); RDW 15.9 % (11.5-15.5); WBC 9.3 k/uL (3.8-10.6)
--- NOTE | 2017-10-08 09:24 | US ---
EXAMINATION TYPE: US kidneys/renal and bladder DATE OF EXAM: 10/07/2017 COMPARISON: Previous study dated 11/27/2016 CLINICAL HISTORY: RF. EXAM MEASUREMENTS: Right Kidney: 9.4 x 4.4 x 3.7 cm Left Kidney: 10.7 x 5.2 x 5.4 cm Exam done portable, patient unable to roll up or hold breath, and large patient body habitus. Limited exam due to these factors. Right Kidney: No hydronephrosis or masses seen Left Kidney: entire kidney not seen. Bladder: not seen Bilateral Jets seen: no The study is limited by the patient's inability to roll. IMPRESSION: NO DEFINITE ACUTE ABNORMALITY.
[2017-10-08 09:59] LABS: Glucose,Whole Blood 158 mg/dL (75-99)
--- NOTE | 2017-10-08 10:03 | PN ---
PROGRESS NOTE DATE OF SERVICE: 10/08/2017. HISTORY: Patient is seen for followup for acute kidney injury. She has been transferred out of the ICU. Renal function has improved with creatinine down to 2.2 mg/dL from 2.7 yesterday. The patient was initially hypotensive. She is not hypotensive anymore. She is maintained on IV fluids at 120 mL/hour. Ultrasound does not show any evidence of hydronephrosis. EXAMINATION: Blood pressure is 110/54, heart rate 75 per minute. Patient is afebrile. Examination of the heart S1, S2. Examination of the lungs, bilateral breath sounds are heard. Abdomen is soft, nontender. Exam of lower extremities shows no significant edema. LABS: Reveal sodium 140, potassium 4.6, chloride 112, CO2 is 19, BUN 56, serum creatinine 2.2, hemoglobin 7.9 g/dL. ASSESSMENT: 1. Acute kidney injury secondary to hypotension, hypoperfusion, ischemic acute tubular necrosis currently nonoliguric and improving. Continue IV fluids, however, I will decrease the rate to about 60 mL an hour. 2. Hyperkalemia associated with acute kidney injury and use of NSAIDs, currently improved. 3. Type 2 diabetes. 4. History of metastatic breast cancer. PLAN: Decrease IV fluids. Repeat labs in a.m. Check stool for occult blood to rule out underlying GI bleed. This can also be associated with the hyperkalemia. MMODL / IJN: [id number] /
[2017-10-08] MEDS: ACETAMINOPHEN TAB 325 MG TAB PO PRN ×2 (10:34→20:35)
--- NOTE | 2017-10-08 13:33 | P.PN ---
Subjective Progress Note Date: 10/08/17 Principal diagnosis: Acute anemia, Coumadin coagulopathy, chest wall hematoma secondary to fall and acute renal failure with hyperkalemia. This is a very pleasant 82-year-old female patient who follows with Dr. Turner as her primary care physician. She does have a history of breast cancer with bone metastasis diagnosed back in 2013 treated with right mastectomy and Arimidex, diabetes mellitus, DVT currently on warfarin, hyperlipidemia, hypertension, memory impairment. She is a lifelong nonsmoker. No pulmonary issues. She presented here to the emergency room yesterday with complaints of left-sided chest discomfort. This is following a syncopal episode and fall back on 10/03/2017. She felt that was secondary to a low blood sugar EMS had been called at the time but the patient refused transfer to the emergency room. She had fallen a week ago as well. She had recently been treated for urinary tract infection and just completed Bactrim. X-rays of the thoracic, lumbar and pelvis all revealed no acute fracture. Chest x-ray showed no acute pulmonary process. Lab results revealed INR greater than 10, potassium 6.1, bicarb 18, creatinine 2.60, white count 11.6, hemoglobin 8.4 and AST 44, ALT 66 month glucose 259. Based on these abnormalities she was admitted to the intensive care unit. She is seen today in consultation. She is currently awake and alert in no acute distress. She is having some ongoing discomfort on her left side from her previous fall. There is ecchymosis noted on the left chest. INR is improved 1.9. Hemoglobin 7.8. Potassium 5.6. Creatinine 2.71. AST 63, ALT 101, CPK 217. She has remained hemodynamically stable. She's afebrile. Maintaining good O2 saturations in the high 90s on 2 L/m per nasal cannula. She has a 0.9 normal saline at 120 mL's per hour. Nephrology is on the case as well. Patient was reevaluated today on 10/08/2017, seems to be doing much better, relatively asymptomatic except for pain over the left sided chest wall. Patient had a significant chest wall hematoma, secondary to fall. No shortness of breath, no cough, no wheezing. Hemoglobin today is 7.9. Patient did receive a unit of packed RBCs since admission. Her coagulopathy is improving, INR is 1.3 today, considering it was over 10 on admission. Her renal profile is also improving with a BUN down to 56 creatinine 2.20 and it was 2.7 on admission. Objective - Vital Signs Vital signs: Vital Signs Temp 98.2 F 10/08/17 10:38 Pulse 84 10/08/17 10:38 Resp 18 10/08/17 12:00 BP 144/64 10/08/17 10:38 Pulse Ox 96 10/08/17 10:38 Intake & Output 10/07/17 10/08/17 10/08/17 18:59 06:59 18:59 Intake Total 1180 1980 Output Total 390 1750 Balance 790 230 Weight 90 kg Intake: IV 960 Sodium Chloride 0.9% 1, 960 000 ml @ 120 mls/hr IV . Q8H20M [facility] Rx#:[id number] Intake, IV Titration 960 Amount Sodium Chloride 0.9% 1, 960 000 ml @ 120 mls/hr IV . Q8H20M [facility] Rx#:[id number] Oral 220 400 Blood Product 620 Rc Irr As3 Unit 310 [id number] Output: Urine 390 1750 Other: Voiding Method Indwelling Catheter Indwelling Catheter Indwelling Catheter - Exam GENERAL EXAM: Obese. Alert, oriented, comfortable in no apparent distress. HEAD: Normocephalic. EYES: Normal reaction of pupils, equal size. NOSE: Clear with pink turbinates. THROAT: No erythema or exudates. NECK: No masses, no JVD. CHEST: Ecchymosis along the lateral left chest, hip. LUNGS: Equal air entry with no crackles, wheeze, rhonchi or dullness. CVS: S1 and S2 normal with no audible murmur, regular rhythm. ABDOMEN: No hepatosplenomegaly, normal bowel sounds, no guarding or rigidity. SPINE: No scoliosis or deformity SKIN: No rashes CENTRAL NERVOUS SYSTEM: No focal deficits, tone is normal in all 4 extremities. EXTREMITIES: There is no peripheral edema. No clubbing, no cyanosis. Peripheral pulses are intact. - Labs CBC & Chem 7: 10/08/17 08:56 10/08/17 02:33 Labs: Abnormal Lab Results - Last 24 Hours (Table) 10/07/17 10/07/17 10/07/17 Range/Units 14:17 17:42 18:25 RBC 2.45 L (3.80-5.40) m/uL Hgb 6.7 L* (11.4-16.0) gm/dL Hct 21.2 L (34.0-46.0) % MCHC (31.0-37.0) g/dL RDW 15.6 H (11.5-15.5) % PT (9.0-12.0) sec INR (<1.2) Chloride (98-107) mmol/L Carbon Dioxide (22-30) mmol/L BUN (7-17) mg/dL Creatinine (0.52-1.04) mg/dL Glucose (74-99) mg/dL POC Glucose (mg/dL) 171 H 160 H (75-99) mg/dL Creatine Kinase (30-135) U/L Crossmatch 10/07/17 10/07/17 10/07/17 Range/Units 20:12 20:17 21:23 RBC (3.80-5.40) m/uL Hgb (11.4-16.0) gm/dL Hct (34.0-46.0) % MCHC (31.0-37.0) g/dL RDW (11.5-15.5) % PT (9.0-12.0) sec INR (<1.2) Chloride (98-107) mmol/L Carbon Dioxide (22-30) mmol/L BUN (7-17) mg/dL Creatinine (0.52-1.04) mg/dL Glucose (74-99) mg/dL POC Glucose (mg/dL) 209 H 192 H (75-99) mg/dL Creatine Kinase (30-135) U/L Crossmatch See Detail 10/08/17 10/08/17 10/08/17 Range/Units 01:41 02:33 02:33 RBC (3.80-5.40) m/uL Hgb (11.4-16.0) gm/dL Hct (34.0-46.0) % MCHC (31.0-37.0) g/dL RDW (11.5-15.5) % PT 12.4 H (9.0-12.0) sec INR 1.3 H (<1.2) Chloride 112 H (98-107) mmol/L Carbon Dioxide 19 L (22-30) mmol/L BUN 56 H (7-17) mg/dL Creatinine 2.20 H (0.52-1.04) mg/dL Glucose 110 H (74-99) mg/dL POC Glucose (mg/dL) 146 H (75-99) mg/dL Creatine Kinase 175 H (30-135) U/L Crossmatch 10/08/17 10/08/17 10/08/17 Range/Units 02:33 08:56 09:46 RBC 2.91 L 2.96 L (3.80-5.40) m/uL Hgb 7.9 L 7.9 L (11.4-16.0) gm/dL Hct 24.8 L 25.5 L (34.0-46.0) % MCHC 30.8 L (31.0-37.0) g/dL RDW 15.6 H 15.9 H (11.5-15.5) % PT (9.0-12.0) sec INR (<1.2) Chloride (98-107) mmol/L Carbon Dioxide (22-30) mmol/L BUN (7-17) mg/dL Creatinine (0.52-1.04) mg/dL Glucose (74-99) mg/dL POC Glucose (mg/dL) 158 H (75-99) mg/dL Creatine Kinase (30-135) U/L Crossmatch Microbiology - Last 24 Hours (Table) 10/06/17 23:00 Urine Culture - Final Urine,Catheterized 10/06/17 18:03 Blood Culture - Preliminary Blood No Growth after 24 hours Assessment and Plan Assessment: #1 Left-sided chest wall, hip and leg pain status post fall a few days prior secondary to suspected hypoglycemic reaction. Unclear of loss of consciousness. No fractures per serial x-rays. #2 Acute kidney injury secondary to hypotension and acute tubular necrosis #3 Hyperkalemia secondary to above. Current potassium 4.6 #4 Hypercoagulopathy with presenting INR greater than 10.0. Presently 1.3 #5 Acute anemia presenting hemoglobin 6.7, currently 7.9 #6 Elevated LFTs. #7 Diabetes mellitus, type II. #8 History of breast cancer with bone metastasis diagnosed in 2013. Remains on Arimidex. #9 History of DVT maintained on warfarin supra therapeutic. #10 Recent frequent falls. #11 Hypertension. #12 Memory impairment. Concerns regarding medication compliance. The patient lives alone. Recommendation: Continue present supportive care measures, no active pulmonary issues at this point, we'll sign off and see the patient on when necessary basis. Time with Patient: Less than 30
[2017-10-08] MEDS ORDERED: HYDROmorphone 2 MG TAB PO PRN (14:19)
--- NOTE | 2017-10-08 17:16 | PN ---
PROGRESS NOTE DATE OF SERVICE: 10/08/2017. I am covering for Dr. Turner. This 82-year-old woman is admitted with multiple medical problems including acute renal failure, also hyperkalemia. The patient has extensive bruise of the back with rhabdomyolysis also. The patient also is taking NSAID apparently. The hematology/Oncology has seen the patient for breast cancer which is metastatic on Arimidex. Otherwise the patient also had abdominal bladder ultrasound for evaluation of the kidneys, which showed no acute abnormality. PAST MEDICAL HISTORY: Reviewed. REVIEW OF SYSTEMS: CARDIOVASCULAR: No angina. RESPIRATORY: As mentioned earlier. GI: As mentioned. : None. NERVOUS SYSTEM: No numbness, weakness. CURRENT MEDICATIONS: Reviewed and include: 1. Tylenol 650 q.6h p.r.n. 2. Ventolin 2.5 q.4h. 3. Xanax 0.5 t.i.d. 4. Arimidex 1 mg p.o. daily. 5. Dilaudid 2 mg p.o. q.3h p.r.n. 6. NovoLog scale. 7. Levemir 30 units subcu q.h.s. 8. Lopressor 25 mg p.o. b.i.d. 9. Narcan 0.2 q.2h p.r.n. 10.Zofran. 11.Protonix. PHYSICAL EXAM: Patient is alert, oriented x3. The pulse is 84, blood pressure 145/64, respiration 18, temperature 98.2, pulse ox 98% on 2 L. HEENT: Conjunctivae normal. Oral mucosa moist. NECK: No jugular venous distention. No carotid bruit. No lymph node enlargement. CARDIOVASCULAR: S1, S2. No S3, no S4. RESPIRATORY: Breath sounds diminished in the bases. A few scattered rhonchi and crackles. ABDOMEN: Soft, obese, nontender. No mass palpable. LEGS: No edema. NERVOUS SYSTEM: Higher function as mentioned earlier. Moves all four limbs. No focal deficits. LYMPHATICS: No lymphadenopathy in the neck, axillae, groin.. SKIN: No ulcer, rash or bleeding. LAB STUDIES: WBC 9.1, hemoglobin 7.9, creatinine 2.20. ASSESSMENT: 1. Acute renal failure possibly prerenal with acute tubular necrosis, severe hyperkalemia. 2. Extensive bruise of the back status post fall and rhabdomyolysis. 3. Coumadin coagulopathy present on admission. 4. Increased WBC. 5. Anemia. 6. Carcinoma of the breast with secondary recent metastasis possibly. 7. Diabetes mellitus type 2 history. 8. History of DVT. 9. Hypertension. 10.Hyperlipidemia. 11.History of memory impairment. 12.History of cholecystectomy. 13.History of right mastectomy. 14.FULL CODE. RECOMMENDATIONS AND DISCUSSION: This 82-year-old woman who presented with multiple complex medical issues, will monitor the patient closely. Continue the current management and symptomatic treatment. INR is improved to 1.3 at this time. I recommend initiate the Coumadin at small dose such as 1 mg p.o. daily. Otherwise monitor creatinine closely. PT, OT evaluation and closely follow with Nephrology. Continue the rest of medications. See orders for details. Dr. Turner will follow. MMODL / IJN: [id number] /
[2017-10-08 17:25] LABS: Glucose,Whole Blood 272 mg/dL (75-99)
[2017-10-08] MEDS: WARFARIN 1 MG TAB PO SCH (17:25)
[2017-10-08 22:17] LABS: Glucose,Whole Blood 251 mg/dL (75-99)
[2017-10-08] MEDS: INSULIN DETEMIR 100 UNIT/ML 10 ML VIAL SQ SCH (22:26)
[2017-10-08 22:45] LABS: Iron Saturation 27.65 (12.00-45.00)
[2017-10-09 02:06] LABS: Glucose,Whole Blood 173 mg/dL (75-99)
[2017-10-09] MEDS: INSULIN ASPART 100 UNIT/ML 1 ML 10 ML VIAL SQ SCH ×6 (04:17→22:00)
[2017-10-09 05:37] LABS: Glucose,Whole Blood 132 mg/dL (75-99)
[2017-10-09] MEDS: ACETAMINOPHEN TAB 325 MG TAB PO PRN ×2 (06:11→14:33)
[2017-10-09 06:12] LABS: INR 1.4 (<1.2); Prothrombin Time 13.1 sec (9.0-12.0)
[2017-10-09 06:13] LABS: Anisocytosis Slight; Basophils % (A) 0 %; Eosinophils # (A) 0.5 k/uL (0-0.7); Eosinophils % (A) 5 %; HGB 8.3 gm/dL (11.4-16.0); Lymphocytes # (A) 1.3 k/uL (1.0-4.8); Lymphocytes % (A) 16 %; MCH 27.4 pg (25.0-35.0); MCV 85.7 fL (80.0-100.0); Mean Platelet Volume 7.2; Monocytes # (A) 0.5 k/uL (0-1.0); Monocytes % (A) 6 %; Neutrophils % (A) 71 %; Platelet Count 241 k/uL (150-450); RBC 3.04 m/uL (3.80-5.40); RDW 16.1 % (11.5-15.5); WBC 8.5 k/uL (3.8-10.6)
[2017-10-09 06:23] LABS: Calcium 8.7 mg/dL (8.4-10.2); Phosphorus 2.4 mg/dL (2.5-4.5); Potassium 4.7 mmol/L (3.5-5.1)
[2017-10-09] MEDS: SODIUM CHLORIDE 0.9% 1,000 ML IV SCH ×2 (06:57→14:32)
[2017-10-09] MEDS: PANTOPRAZOLE 40 MG/10 ML VIAL IV SCH (09:53)
[2017-10-09] MEDS: METOPROLOL TARTRATE 25 MG TAB PO SCH ×2 (09:53→21:59)
[2017-10-09] MEDS: ANASTROZOLE 1 MG TAB PO SCH (09:53)
[2017-10-09 10:40] LABS: Glucose,Whole Blood 149 mg/dL (75-99)
[2017-10-09 11:30] LABS: Glucose,Whole Blood 152 mg/dL (75-99)
--- NOTE | 2017-10-09 13:12 | P.PN ---
Subjective Progress Note Date: 10/09/17 Patient seen and examined at the bedside on rounds with Dr. Turner. Patient is awake and alert. Patient denies chest pain or pressure. Denies shortness of breath or coughing. Denies nausea or vomiting. Patient does admit to generalized weakness. Patient has extensive ecchymosis noted to her back from a fall. Patient's INR today is 1.4. She was started back on Coumadin yesterday at 1 mg daily. Her INR upon admission was greater than 10. Hemoglobin is 8.3. Patient did receive 1 unit RBCs during hospitalization for hemoglobin of 6.7. No active bleeding noted. Her potassium today is 4.7. BUN 33. Creatinine 1.51. The patient currently lives at home alone but Dr. Turner discussed possibility of subacute rehab with patient who was agreeable. Objective - Vital Signs Vital signs: Vital Signs Temp 96.3 F L 10/09/17 08:00 Pulse 83 10/09/17 12:00 Resp 18 10/09/17 12:00 BP 166/78 10/09/17 08:00 Pulse Ox 93 L 10/09/17 08:00 Intake & Output 10/08/17 10/09/17 10/09/17 18:59 06:59 18:59 Intake Total 360 660 240 Output Total 1500 900 Balance 360 -840 -660 Weight 90 kg Intake: Intake, IV Titration 360 Amount Sodium Chloride 0.9% 1, 360 000 ml @ 120 mls/hr IV . Q8H20M [facility] Rx#:[id number] Oral 360 300 240 Output: Urine 1500 900 Other: Voiding Method Indwelling Catheter Indwelling Catheter Indwelling Catheter - Exam GENERAL: This is a 82-year-old female in no apparent distress at the time of examination. Pleasant and cooperative. HEENT: Head is atraumatic, normocephalic. Pupils are equal, round, and reactive to light. Sclerae anicteric. Conjunctivae are clear. Mucus membranes of the mouth are moist. Neck is supple. RESPIRATORY: Clear to ausculation. No wheezes, rales, or rhonchi. No use of accessory muscles. Patient maintaining oxygen saturation greater than 92%. No chest wall tenderness is noted on palpation or with deep breathing. CARDIOVASCULAR: Regular rate and rhythm. S1 and S2 noted. No systolic or diastolic murmur auscultated. No JVD noted. No S3 or S4 noted. GASTROINTESTINAL: Obese. No distention noted. Abdomen soft and round. Normal active bowel sounds auscultated x 4 quadrants. No pain or tenderness noted upon palpation. INTEGUMENTARY: Extensive ecchymosis noted on patient's back and left hip. No cyanosis. No jaundice. No rashes noted. No cellulitis noted. EXTREMITIES: 2+ peripheral pulses. No evidence of peripheral edema. No calf tenderness noted. NEUROLOGIC: Cranial nerves II-XII intact. PSYCHIATRIC: Awake, alert, and oriented X 3. Appropriate affect. Intact judgement and insight. - Labs CBC & Chem 7: 10/09/17 05:33 10/09/17 05:33 Labs: Abnormal Lab Results - Last 24 Hours (Table) 10/06/17 10/08/17 10/08/17 Range/Units 18:03 17:21 22:06 RBC (3.80-5.40) m/uL Hgb (11.4-16.0) gm/dL Hct (34.0-46.0) % RDW (11.5-15.5) % PT (9.0-12.0) sec INR (<1.2) Chloride (98-107) mmol/L BUN (7-17) mg/dL Creatinine (0.52-1.04) mg/dL Glucose (74-99) mg/dL POC Glucose (mg/dL) 272 H 251 H (75-99) mg/dL Hemoglobin A1c 6.4 H (4.0-6.0) % Phosphorus (2.5-4.5) mg/dL 10/09/17 10/09/17 10/09/17 Range/Units 01:53 05:33 05:33 RBC 3.04 L (3.80-5.40) m/uL Hgb 8.3 L (11.4-16.0) gm/dL Hct 26.0 L (34.0-46.0) % RDW 16.1 H (11.5-15.5) % PT 13.1 H (9.0-12.0) sec INR 1.4 H (<1.2) Chloride (98-107) mmol/L BUN (7-17) mg/dL Creatinine (0.52-1.04) mg/dL Glucose (74-99) mg/dL POC Glucose (mg/dL) 173 H (75-99) mg/dL Hemoglobin A1c (4.0-6.0) % Phosphorus (2.5-4.5) mg/dL 10/09/17 10/09/17 10/09/17 Range/Units 05:33 05:36 10:22 RBC (3.80-5.40) m/uL Hgb (11.4-16.0) gm/dL Hct (34.0-46.0) % RDW (11.5-15.5) % PT (9.0-12.0) sec INR (<1.2) Chloride 116 H (98-107) mmol/L BUN 33 H (7-17) mg/dL Creatinine 1.51 H (0.52-1.04) mg/dL Glucose 113 H (74-99) mg/dL POC Glucose (mg/dL) 132 H 149 H (75-99) mg/dL Hemoglobin A1c (4.0-6.0) % Phosphorus 2.4 L (2.5-4.5) mg/dL 10/09/17 Range/Units 11:24 RBC (3.80-5.40) m/uL Hgb (11.4-16.0) gm/dL Hct (34.0-46.0) % RDW (11.5-15.5) % PT (9.0-12.0) sec INR (<1.2) Chloride (98-107) mmol/L BUN (7-17) mg/dL Creatinine (0.52-1.04) mg/dL Glucose (74-99) mg/dL POC Glucose (mg/dL) 152 H (75-99) mg/dL Hemoglobin A1c (4.0-6.0) % Phosphorus (2.5-4.5) mg/dL Microbiology - Last 24 Hours (Table) 10/06/17 18:03 Blood Culture - Preliminary Blood No Growth after 48 hours 10/06/17 23:00 Urine Culture - Final Urine,Catheterized Assessment and Plan Plan: ASSESSMENT: Left-sided chest wall, hip, and leg pain status post fall secondary to suspected hypoglycemic reaction, x-rays negative for fracture Acute kidney injury secondary to hypotension, improving Hyperkalemia secondary to acute kidney injury, resolved History of deep vein thrombosis, maintained on long-term anticoagulation with Coumadin Hypercoagulopathy, INR greater than 10 on admission, resolved Acute anemia, type unknown, status post 1 unit RBC transfusion, stable Elevated LFTs, continue to monitor Diabetes mellitus, type II History of breast cancer with bone metastasis in 2013, remains on Arimidex Essential hypertension PLAN: Nephrology on consult. Appreciate recommendations and input Stool for occult blood ordered per nephrology Decrease IV fluids to 75 mL an hour Continue Coumadin 1 mg daily. Recheck INR in a.m. Continue to monitor capillary blood glucose Home meds as appropriate Monitor labs GI prophylaxis: Protonix 40 mg IV Daily DVT prophylaxis: Patient is on Coumadin daily Monitor vital signs and address as appropriate Discharge planning: Patient lives alone. Dr. Turner discussed subacute rehab with patient who is agreeable Consult physical therapy and occupational therapy Further recommendations pending patient's course Possible discharge to ECF tomorrow if patient remains stable Nurse practitioner note has been reviewed by physician. Signing provider agrees with the documented findings, assessment, and plan of care.
[2017-10-09 15:01] LABS: Glucose,Whole Blood 131 mg/dL (75-99)
[2017-10-09 18:45] LABS: Glucose,Whole Blood 230 mg/dL (75-99)
[2017-10-09] MEDS: WARFARIN 1 MG TAB PO SCH (18:47)
[2017-10-09 21:54] LABS: Glucose,Whole Blood 180 mg/dL (75-99)
[2017-10-09] MEDS: INSULIN DETEMIR 100 UNIT/ML 10 ML VIAL SQ SCH (22:00)
--- NOTE | 2017-10-09 23:07 | PN ---
PROGRESS NOTE Patient is seen for followup for acute kidney injury. Currently patient is maintained on IV fluids. Renal function has improved significantly. Serum creatinine was 1.5 mg/dL today. It was 2.2 mg/dL yesterday. Patient denies any complaints. On examination, blood pressure is 160/74, heart rate of 83 per minute. She is afebrile. EXAMINATION OF THE HEART: S1, S2. EXAMINATION OF LUNGS: Bilateral breath sounds are heard. ABDOMEN: Soft, non-tender. Examination of lower extremities shows trace edema bilaterally. TECHNICAL OPERATIONS MANAGER exam is grossly intact. Labs show sodium 144, potassium 4.7, creatinine 1.5, BUN 33, phosphorus 2.4, hemoglobin 8.3 g/dL. ASSESSMENT: 1. Acute kidney injury secondary to hypotension, hypoperfusion, nonoliguric and improving. Will discontinue the IV fluids. 2. Hyperkalemia associated with acute kidney injury and use of non-steroidal anti- inflammatories, currently resolved. 3. Type 2 diabetes. 4. History of metastatic breast cancer. PLAN: Discontinue IV fluids. Check iron studies. MMODL / IJN: [id number] /
[2017-10-10 02:21] LABS: Glucose,Whole Blood 119 mg/dL (75-99)
[2017-10-10 03:18] LABS: Iron Saturation 10.06 (12.00-45.00)
[2017-10-10] MEDS: INSULIN ASPART 100 UNIT/ML 1 ML 10 ML VIAL SQ SCH ×6 (03:58→21:05)
[2017-10-10] MEDS: SODIUM CHLORIDE 0.9% 1,000 ML IV SCH ×2 (04:36→04:37)
[2017-10-10] MEDS: METOPROLOL TARTRATE 25 MG TAB PO SCH ×2 (05:57→21:04)
[2017-10-10] MEDS: PANTOPRAZOLE 40 MG TABLET PO SCH (05:57)
[2017-10-10 06:01] LABS: Anisocytosis Slight; Basophils % (A) 1 %; Eosinophils # (A) 0.4 k/uL (0-0.7); Eosinophils % (A) 5 %; HCT 31.7 % (34.0-46.0); HGB 10.2 gm/dL (11.4-16.0); Lymphocytes # (A) 1.1 k/uL (1.0-4.8); Lymphocytes % (A) 14 %; MCH 27.5 pg (25.0-35.0); MCHC 32.3 g/dL (31.0-37.0); MCV 85.1 fL (80.0-100.0); Mean Platelet Volume 6.8; Monocytes # (A) 0.5 k/uL (0-1.0); Monocytes % (A) 6 %; Neutrophils # (A) 5.8 k/uL (1.3-7.7); Neutrophils % (A) 72 %; Platelet Count 323 k/uL (150-450); RBC 3.73 m/uL (3.80-5.40); RDW 16.7 % (11.5-15.5); WBC 8.1 k/uL (3.8-10.6)
[2017-10-10 06:05] LABS: INR 1.5 (<1.2); Prothrombin Time 13.7 sec (9.0-12.0)
[2017-10-10 06:09] LABS: Calcium 9.4 mg/dL (8.4-10.2); Magnesium 1.9 mg/dL (1.6-2.3); Phosphorus 2.2 mg/dL (2.5-4.5); Potassium 4.7 mmol/L (3.5-5.1)
[2017-10-10 06:27] LABS: Glucose,Whole Blood 132 mg/dL (75-99)
[2017-10-10] MEDS: ANASTROZOLE 1 MG TAB PO SCH (09:42)
[2017-10-10 12:10] LABS: Glucose,Whole Blood 171 mg/dL (75-99)
--- NOTE | 2017-10-10 13:10 | P.DS ---
Providers Date of admission: 10/06/17 20:06 Expected date of discharge: 10/10/17 Attending physician: Chris Turner Consults: 10/06/17 20:15 Consult Physician Stat Consulting Provider: Emmett Bella Consult Reason/Comments: ICU management Do you want consulting provider notified?: Already Contacted Consult Physician Stat Consulting Provider: Emelina Brian Consult Reason/Comments: Renal Insufficiency Do you want consulting provider notified?: Yes, Notify in am 10/06/17 22:56 Consult Physician Routine Consulting Provider: Killian Akbar Consult Reason/Comments: malignancy Do you want consulting provider notified?: Yes Primary care physician: Chris Turner [facility] Course: 82-year-old female who presented to the emergency department on 2017 after she fell at home. The patient states her blood sugar was low and related her fall to hypoglycemia. The patient was admitted for further evaluation. The patient was found to have extensive bruising of her back. X- ray of the lumbar spine was completed which was negative for fracture or malalignment. X-ray of the pelvis was completed which was negative for an acute process. X-ray of the thoracic spine was negative for an acute process. At the time of her admission her INR was found to be greater than 10. Her potassium was 6.8. BUN 62. Creatinine 2.8. Nephrology was consulted for acute renal failure. The patient received Kayexalate and IV Lasix. The patient received IV fluids during hospitalization. Nephrotoxic agents were placed on hold. The patient underwent an ultrasound of the kidneys which was negative for acute abnormality. The patient did admit to taking NSAIDs prior to admission to the hospital. Her kidney function improved. Her latest BUN is 23. Creatinine is 1.16. She is to restart her Lasix at the time of discharge. Patient's Coumadin was placed on hold secondary to elevated INR. Her Coumadin has since been restarted. Latest INR is 1.5. She has been receiving Coumadin 1 mg daily which is to be increased to 2 mg at the time of discharge and she is to have her INR repeated in 2 days. The patient has a history of breast cancer and is on Arimidex daily. Hematology/oncology was consulted to see patient during hospitalization. No further intervention was recommended from their standpoint. The patient lives alone and had generalized weakness during hospitalization. PT and OT were consulted. Subacute rehab was recommended. Patient was agreeable. The patient was deemed stable for discharge to [facility] per Dr. Turner. DISCHARGE DIAGNOSIS: Left-sided chest wall, hip, and leg pain status post fall secondary to suspected hypoglycemic reaction, x-rays negative for fracture Acute kidney injury secondary to hypotension, resolved Hyperkalemia secondary to acute kidney injury, resolved History of deep vein thrombosis, maintained on long-term anticoagulation with Coumadin Hypercoagulopathy, INR greater than 10 on admission, resolved Acute anemia, type unknown, status post 1 unit RBC transfusion, stable Elevated LFTs, continue to monitor Diabetes mellitus, type II History of breast cancer with bone metastasis in 2013, remains on Arimidex Essential hypertension Nurse practitioner note has been reviewed by physician. Signing provider agrees with the documented findings, assessment, and plan of care. Patient Condition at Discharge: Stable Plan - Discharge Summary New Discharge Prescriptions: New ALPRAZolam [Xanax] 0.25 mg PO TID PRN tab PRN Reason: Anxiety Pantoprazole [Protonix] 40 mg PO AC-BRKFST tablet. Warfarin [Coumadin] 2 mg PO DAILY@1800 tab Continue Anastrozole [Arimidex] 1 mg PO DAILY Acetaminophen Tab [Tylenol] 650 mg PO Q6HR PRN #0 tab PRN Reason: Fever and/ or Mild Pain Metoprolol Tartrate [Lopressor] 25 mg PO BID tab glyBURIDE/METFORMIN HCL [glyBURIDE/METFORMIN HCL 5-500 mg] 1 tab PO BID Insulin Glargine [Lantus] 30 unit SQ HS Furosemide [Lasix] 40 mg PO DAILY Ferrous Sulfate [Iron (65 MG Elemental)] 325 mg PO DAILY Aspirin [Adult Low Dose Aspirin EC] 81 mg PO DAILY Discontinued Warfarin [Coumadin] 3 mg PO MOTUWETH Naproxen Sodium [Aleve] 440 mg PO DAILY Discharge Medication List Anastrozole [Arimidex] 1 mg PO DAILY 05/14/15 [History] Acetaminophen Tab [Tylenol] 650 mg PO Q6HR PRN #0 tab 04/20/16 [Rx] Metoprolol Tartrate [Lopressor] 25 mg PO BID tab 04/20/16 [Rx] glyBURIDE/METFORMIN HCL [glyBURIDE/METFORMIN HCL 5-500 mg] 1 tab PO BID [History] Insulin Glargine [Lantus] 30 unit SQ HS 05/12/17 [History] Aspirin [Adult Low Dose Aspirin EC] 81 mg PO DAILY 10/06/17 [History] Ferrous Sulfate [Iron (65 MG Elemental)] 325 mg PO DAILY 10/06/17 [History] Furosemide [Lasix] 40 mg PO DAILY 10/06/17 [History] ALPRAZolam [Xanax] 0.25 mg PO TID PRN tab 10/10/17 [Rx] Pantoprazole [Protonix] 40 mg PO AC-BRKFST tablet. 10/10/17 [Rx] Warfarin [Coumadin] 2 mg PO DAILY@1800 tab 10/10/17 [Rx] Follow up Appointment(s)/Referral(s): Emelina Brian MD [STAFF PHYSICIAN] - 2 Weeks Chris Turner DO [Primary Care Provider] - 1 Week (1 week after DC from ECF) Ambulatory/Diagnostic Orders: Comprehensive Metabolic Panel [LAB.AMB] Time Frame: 1 Week, Location: Determined By Patient Prothrombin Time INR [LAB.AMB] Time Frame: 2 Days, Location: Determined By Patient Activity/Diet/Wound Care/Special Instructions: Repeat INR in two days. Goal INR 2-3 Consistent carbohydrate, renal diet Activity as tolerated Discharge Disposition: TRANSFER TO SNF/ECF
[2017-10-10 17:08] LABS: Glucose,Whole Blood 207 mg/dL (75-99)
[2017-10-10] MEDS: SODIUM FERRIC GLUCONAT-SUCROSE 125 MG in SODIUM CHLORIDE 0.9% 100 ML IVPB SCH (17:25)
--- NOTE | 2017-10-10 17:41 | PN ---
PROGRESS NOTE The patient is seen for followup for acute kidney injury. Her renal function has improved significantly with serum creatinine down to 1.1 mg/dL. It was brought down to 1.5 mg/dL yesterday. All fluids were discontinued. The patient denies any complaints. EXAMINATION: This morning blood pressure 145/65, earlier it was 138/60. Patient is afebrile. Heart rate about 80 per minute. Examination of the heart: S1, S2. Examination lungs: Decreased breath sounds at bases. Abdomen is soft, nontender. Examination lower extremities shows no significant edema. LABORATORY DEVELOPMENT TECHNICIAN exam is grossly intact. LABS: Sodium 144, potassium 4.7, BUN 23, serum creatinine 1.16, hemoglobin 10.2 g/dL. ASSESSMENT: 1. Acute kidney injury, acute tubular necrosis, currently nonoliguric, mainly ischemic, improved significantly. IV fluids were discontinued yesterday. 2. Hyperkalemia associated with acute kidney injury and use of NSAIDs, currently resolved. 3. History of metastatic breast cancer. 4. Type 2 diabetes. 5. Anemia. Iron studies were ordered yesterday. Iron saturation is quite low at 10%. PLAN: The patient is stable for discharge. However, since the iron is low, we can give her a dose of IV iron before she goes or she can continue with oral iron supplementation at home. MMODL / IJN: [id number] /
[2017-10-10] MEDS ORDERED: WARFARIN 2 MG TAB PO SCH (18:00)
[2017-10-10 21:04] LABS: Glucose,Whole Blood 175 mg/dL (75-99)
[2017-10-10] MEDS: INSULIN DETEMIR 100 UNIT/ML 10 ML VIAL SQ SCH (21:04)
[2017-10-11 01:53] LABS: Glucose,Whole Blood 213 mg/dL (75-99)
[2017-10-11 05:41] LABS: Glucose,Whole Blood 161 mg/dL (75-99)
[2017-10-11] MEDS: PANTOPRAZOLE 40 MG TABLET PO SCH (06:37)
[2017-10-11] MEDS: INSULIN ASPART 100 UNIT/ML 1 ML 10 ML VIAL SQ SCH ×2 (06:37→11:32)
[2017-10-11 06:44] LABS: Anisocytosis Slight; Basophils # (A) 0.1 k/uL (0-0.2); Basophils % (A) 1 %; Eosinophils # (A) 0.3 k/uL (0-0.7); Eosinophils % (A) 4 %; HCT 31.2 % (34.0-46.0); HGB 9.6 gm/dL (11.4-16.0); Hypochromasia Slight; Lymphocytes # (A) 1.4 k/uL (1.0-4.8); Lymphocytes % (A) 17 %; MCH 26.6 pg (25.0-35.0); MCHC 30.8 g/dL (31.0-37.0); MCV 86.4 fL (80.0-100.0); Mean Platelet Volume 7.1; Monocytes # (A) 0.6 k/uL (0-1.0); Monocytes % (A) 7 %; Neutrophils # (A) 5.6 k/uL (1.3-7.7); Neutrophils % (A) 69 %; Platelet Count 297 k/uL (150-450); RBC 3.61 m/uL (3.80-5.40); RDW 17.3 % (11.5-15.5); WBC 8.1 k/uL (3.8-10.6)
[2017-10-11 06:53] LABS: INR 1.5 (<1.2)
[2017-10-11 07:02] LABS: Magnesium 1.9 mg/dL (1.6-2.3); Phosphorus 2.3 mg/dL (2.5-4.5); Potassium 4.8 mmol/L (3.5-5.1)
[2017-10-11 08:28] VITALS: RESP 16
[2017-10-11] MEDS: ACETAMINOPHEN TAB 325 MG TAB PO PRN (08:30)
[2017-10-11] MEDS: SODIUM FERRIC GLUCONAT-SUCROSE 125 MG in SODIUM CHLORIDE 0.9% 100 ML IVPB SCH (08:31)
[2017-10-11] MEDS: METOPROLOL TARTRATE 25 MG TAB PO SCH (08:31)
[2017-10-11] MEDS: ANASTROZOLE 1 MG TAB PO SCH (08:31)
--- NOTE | 2017-10-11 10:03 | P.PN ---
Progress Note - Text Progress Note Date: 10/11/17 Patient seen and examined at the bedside on rounds with Dr. Turner. Patient was medically cleared for discharge yesterday to [facility]. Awaiting insurance authorization. Patient remains hemodynamically stable. Anticipate discharge today. Nurse practitioner note has been reviewed by physician. Signing provider agrees with the documented findings, assessment, and plan of care.
[2017-10-11 10:48] VITALS: BP 146/75; PULSE 71; TEMP 97.5
[2017-10-11 11:51] LABS: Glucose,Whole Blood 191 mg/dL (75-99)
== END 2017-10-11 12:16 | DRG 640 ==
LOC: EC 16:43 → 6ICU 20:06 → 6SEL 10-07 20:37
PROVIDERS: ADMIT Family Medicine; ATTEND Family Medicine
PROC: 30233N1 Transfusion of Nonautologous Red Blood Cells into Peripheral Vein, Percutaneous Approach (ICD-10-PCS; principal; 2017-10-06)
DX: E87.5 Hyperkalemia (principal); N17.0 Acute kidney failure with tubular necrosis; E86.0 Dehydration; C79.51 Secondary malignant neoplasm of bone; E11.649 Type 2 diabetes mellitus with hypoglycemia without coma; I48.0 Paroxysmal atrial fibrillation; M62.82 Rhabdomyolysis; D50.0 Iron deficiency anemia secondary to blood loss (chronic); N39.0 Urinary tract infection, site not specified; E78.5 Hyperlipidemia, unspecified; R79.1 Abnormal coagulation profile; I10 Essential (primary) hypertension; R29.6 Repeated falls; S20.229A Contusion of unspecified back wall of thorax, initial encounter; T45.515A Adverse effect of anticoagulants, initial encounter; W19.XXXA Unspecified fall, initial encounter; Y92.009 Unspecified place in unspecified non-institutional (private) residence as the place of occurrence of the external cause; Z79.01 Long term (current) use of anticoagulants; Z79.4 Long term (current) use of insulin; Z79.811 Long term (current) use of aromatase inhibitors; Z79.82 Long term (current) use of aspirin; Z79.899 Other long term (current) drug therapy; Z82.49 Family history of ischemic heart disease and other diseases of the circulatory system; Z83.3 Family history of diabetes mellitus; Z85.3 Personal history of malignant neoplasm of breast; Z86.718 Personal history of other venous thrombosis and embolism; Z90.11 Acquired absence of right breast and nipple; Z90.49 Acquired absence of other specified parts of digestive tract; Z92.3 Personal history of irradiation; Z79.1 Long term (current) use of non-steroidal anti-inflammatories (NSAID)
CPT/HCPCS: 36415; 71045; 71046; 72070; 72100; 72170; 76770; 80048; 80053; 81001; 82550; 82607; 82728; 82746; 83036; 83540; 83550; 83605; 83735; 84100; 84132; 84484; 85025; 85027; 85610; 85730; 86850; 86900; 86901; 86920; 87040; 87086; 93005; 94640; 96361; 96365; 96375; 99285

== ENCOUNTER → 2017-11-06 | Outpatient (CLI) | payer MEDICARE ==
--- NOTE | 2017-11-07 09:30 | CT ---
EXAMINATION TYPE: CT ChestAbdPelvis wo con DATE OF EXAM: 11/06/2017 COMPARISON: 11/26/2016 HISTORY: History of breast carcinoma. Evaluate for metastasis. CT DLP: 1599 mGycm. Automated Exposure Control for Dose Reduction was Utilized. TECHNIQUE: CT scan of the thorax, abdomen and pelvis is performed without IV contrast, which limits evaluation o f the hollow and solid viscera. FINDINGS: LUNGS: Motion artifact limits evaluation of the lungs, and specifically limits evaluation for pulmona ry nodule. However no pulmonary mass or focal consolidation is seen.. There is no pleural effusion or pneumothorax seen. The tracheobronchial tree is patent. MEDIASTINUM: Lack of IV contrast is noted to limit evaluation for mediastinal and especially hilar ad enopathy. There are no definitive greater than 1 cm hilar or mediastinal lymph nodes. No cardiomega ly or pericardial effusion is seen. Tortuosity of the great vessels is noted with moderate calcific a theromatous changes of the thoracic aorta and coronary arteries and severe mitral annular calcificati ons. OTHER: Retained contrast is noted within the mid and distal esophagus that may relate to gastroesopha geal reflux or delayed propulsion. No hiatal hernia seen. Right mastectomy has been performed. No axi llary adenopathy is seen bilaterally. Punctate macroscopic dystrophic calcification is noted within t he left breast superiorly. LIVER/GB: The unenhanced liver demonstrates a normal morphology without intrahepatic biliary ductal d ilatation. The gallbladder appears surgically absent or significantly contracted. PANCREAS: No significant abnormality is seen. No pancreatic ductal dilatation is seen. SPLEEN: No significant abnormality is seen. No splenomegaly. ADRENALS: No significant abnormality is seen. No nodularity or thickening. KIDNEYS: There is mild bilateral cortical renal thinning. No hydronephrosis or nephrolithiasis. The p reviously seen 8 mm renal calculus is no longer present on the right and has passed in the interim. BOWEL: No dilated bowel is identified. Few scattered colonic diverticula are seen without pericolonic fat stranding. GENITAL ORGANS: Slight uterine atrophy is appreciated. LYMPH NODES: No greater than 1cm abdominal or pelvic lymph nodes are appreciated. OSSEOUS STRUCTURES: There is redemonstration of diffuse blastic osseous skeletal axial metastasis. Wi thin the abdomen and pelvis in comparison to the prior exam of 11/26/2016 degree of skeletal metastasis is similar. No new compression deformities or gross evidence of pathologic fracture although the steve rnum is extremely limited by patient motion. OTHER: Extensive vascular calcifications are seen of the abdominal aorta and its branches. There is d iastases recti and a subcentimeter fat filled umbilical hernia. IMPRESSION: 1. Redemonstration of diffuse osseous metastasis, similar in comparison to the prior exam with no raghu ss evidence of pathologic fracture although the sternum is limited by patient motion. 2. No gross evidence of visceral metastasis given the limitation of lack of intravenous contrast. 3. Contrast within the mid and distal esophagus that may relate to gastroesophageal reflux or delayed propulsion/presbyesophagus. No hiatal hernia.
== END | disposition home or self-care (01) ==
LOC: RADCTMAIN 17:11
PROVIDERS: ATTEND Internal Medicine Hematology & Oncology
DX: C79.51 Secondary malignant neoplasm of bone (principal); C50.411 Malignant neoplasm of upper-outer quadrant of right female breast; R94.4 Abnormal results of kidney function studies; Z88.5 Allergy status to narcotic agent
CPT/HCPCS: 36415; 71250; 74176; 82565; 84520

== ENCOUNTER 2018-06-26 10:55 | Inpatient (IN) | payer MEDICARE ==
[2018-06-26] MEDS ORDERED: SODIUM CHLORIDE 0.9% 1,000 ML IV ONE ×2 (11:21)
[2018-06-26 11:44] LABS: Appearance,Urine Turbid (Clear); Bacteria,Urine Occasional /hpf; Bilirubin,Urine Negative (Negative); Blood,Urine Small (Negative); Color,Urine Yellow; Glucose,Urine (UA) Negative (Negative); Ketones,Urine Negative (Negative); Leukocyte Esterase,Urine Large (Negative); Nitrite,Urine Negative (Negative); PH, Urine 6.5 (5.0-8.0); Protein,Urine 2+ (Negative); RBC,Urine 7 /hpf (0-5); Specific Gravity,Urine 1.012 (1.001-1.035); Urobilinogen,Urine <2.0 mg/dL (<2.0)
[2018-06-26 11:51] LABS: Albumin 3.7 g/dL (3.5-5.0); Calcium 10.3 mg/dL (8.4-10.2); Potassium 4.8 mmol/L (3.5-5.1); Total Bilirubin 1.1 mg/dL (0.2-1.3); Total Protein 6.9 g/dL (6.3-8.2)
[2018-06-26 11:52] LABS: Ammonia <9 umol/L (<30); Lactic Acid, Venous 1.6 mmol/L (0.7-2.0)
[2018-06-26 12:11] LABS: Amphetamine Screen,Urine Not Detected (NotDetected); Barbiturate Screen,Urine Not Detected (NotDetected); Benzodiazepines Screen,Urine Not Detected (NotDetected); Cocaine Screen,Urine Not Detected (NotDetected); Methadone Screen, Urine Not Detected (NotDetected); Opiate Screen,Urine Not Detected (NotDetected); Oxycodone Screen, Urine Not Detected (NotDetected); Phencyclidine Screen,Urine Not Detected (NotDetected); Tricyclic Antidepressant,Urine Not Detected (NotDetected); Urn Cannabinoid Scrn Not Detected (NotDetected)
[2018-06-26 12:17] LABS: Basophils % (A) 0 %; Eosinophils # (A) 0.1 k/uL (0-0.7); Eosinophils % (A) 1 %; HCT 44.2 % (34.0-46.0); HGB 13.6 gm/dL (11.4-16.0); Hypochromasia Moderate; Lymphocytes # (A) 1.2 k/uL (1.0-4.8); Lymphocytes % (A) 11 %; MCH 25.4 pg (25.0-35.0); MCHC 30.7 g/dL (31.0-37.0); MCV 82.5 fL (80.0-100.0); Mean Platelet Volume 7.6; Monocytes # (A) 0.6 k/uL (0-1.0); Monocytes % (A) 6 %; Neutrophils # (A) 8.8 k/uL (1.3-7.7); Neutrophils % (A) 80 %; Platelet Count 195 k/uL (150-450); RBC 5.35 m/uL (3.80-5.40); RDW 14.9 % (11.5-15.5)
[2018-06-26 12:20] LABS: INR 1.2 (<1.2); Partial Thromboplastin Time 22.5 sec (22.0-30.0); Prothrombin Time 11.2 sec (9.0-12.0)
[2018-06-26 12:21] LABS: Creatine Kinase MB 0.6 ng/mL (0.0-2.4); Troponin I 0.034 ng/mL (0.000-0.034)
--- NOTE | 2018-06-26 12:29 | CT ---
EXAMINATION TYPE: CT brain wo con DATE OF EXAM: 06/26/2018 COMPARISON: 11/26/2016 HISTORY: Altered mental status CT DLP: 1262.[address] of the brain was performed. The ventricles, basal cisterns and sulci overlying the cerebral convexities demonstrate mild enlargem ent. There is no evidence for intracranial hemorrhage or sulcal effacement. There is decreased attenuation about the periventricular white matter and deep white matter of both c erebral hemispheres, compatible with chronic small vessel ischemia. Differential diagnosis does inclu de demyelination. No mass effects are seen.No midline shift. Osseous calvarium is intact. If symptoms persist consider MRI. IMPRESSION: 1. Age related atrophic and chronic small vessel ischemic change without acute intracranial process s een at this time.
--- NOTE | 2018-06-26 12:30 | XR ---
EXAMINATION TYPE: XR chest 2V DATE OF EXAM: 06/26/2018 COMPARISON: 10/07/2017 TECHNIQUE: PA and lateral views submitted. HISTORY: Altered mental status FINDINGS: The lungs are clear and there is no pneumothorax, pleural effusion, or focal pneumonia. Sclerotic l esion involving the left humerus and sclerotic deformities involving the left rib cage. Atherosclerot ic change aorta and mild cardiomegaly. Interstitium appears prominent but stable. Degenerative change of the spine. Subsegmental changes at the lung bases likely the basis of atelectasis but should be c orrelated clinically. Cirrhotic change involving the vertebral segments also suspected. IMPRESSION: 1. No acute process. Linear subsegmental changes involving the lung bases for which atelectasis is fa vored over pneumonia correlate clinically. 2. Diffuse osseous metastases.
[2018-06-26 13:09] LABS: Glucose,Whole Blood 170 mg/dL (75-99)
[2018-06-26] MEDS ORDERED: NALOXONE 0.4 MG/ML 1 ML VIAL IV PRN (14:17)
--- NOTE | 2018-06-26 14:17 | ED ---
Altered Mental Status HPI - General Chief Complaint: Altered Mental Status Stated Complaint: altered mental status Time Seen by Provider: 06/26/18 10:55 Source: patient, EMS, RN notes reviewed, old records reviewed Mode of arrival: EMS Limitations: no limitations - History of Present Illness Initial Comments: This is a 82-year-old female was brought in by EMS with complaints of altered mental status. She was seen this morning by visiting staff member who she was sitting in her chair soaking urinary bladder was okay urine she apparently had a very weak he decreased oral intake and was confused she is normally awake alert and oriented. No trauma reported no fall no other complaints patient is a poor historian. She currently believe she is at her home. MD Complaint: confusion, decreased responsiveness - Related Data Home Medications Medication Instructions Recorded Confirmed Anastrozole [Arimidex] 1 mg PO DAILY 05/14/15 06/26/18 Aspirin [Adult Low Dose Aspirin EC] 81 mg PO DAILY 10/06/17 06/26/18 Furosemide [Lasix] 40 mg PO DAILY 10/06/17 06/26/18 Apixaban [Eliquis] 2.5 mg PO BID 06/26/18 06/26/18 Ascorbic Acid [Vitamin C] 500 mg PO DAILY 06/26/18 06/26/18 Cyanocobalamin (Vitamin B-12) 2,500 mcg PO DAILY 06/26/18 06/26/18 [Vitamin B12] Naproxen Sodium [Aleve] 220 mg PO DAILY 06/26/18 06/26/18 Potassium Chloride ER [K-Dur 10] 10 meq PO DAILY 06/26/18 06/26/18 Previous Rx's Medication Instructions Recorded Metoprolol Tartrate [Lopressor] 25 mg PO BID tab 04/20/16 Allergies Allergy/AdvReac Type Severity Reaction Status Date / Time codeine Allergy Abdominal Verified 06/26/18 11:25 Pain Review of Systems ROS Statement: Those systems with pertinent positive or pertinent negative responses have been documented in the HPI. 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 DVT leg years ago, uses walker, bone CA-sees dr hu, History of Any Multi-Drug Resistant Organisms: None Reported Past Surgical History: Breast Surgery, Cholecystectomy, Heart Catheterization, Tubal Ligation Additional Past Surgical History / Comment(s): right mastectomy, cataracts removed, excision of lesion rt cheek, steroid inj in past for heel spur, lithotripsy Past Anesthesia/Blood Transfusion Reactions: No Reported Reaction Past Psychological History: No Psychological Hx Reported Smoking Status: Never smoker Past Alcohol Use History: None Reported Past Drug Use History: None Reported - Past Family History Mother Family Medical History: Diabetes Mellitus Father Family Medical History: Congestive Heart Failure (CHF) General Exam - General Exam Comments Initial Comments: This a well-developed well-nourished awake alert but confused female Limitations: no limitations ENT exam: Present: mucous membranes dry Cardiovascular Exam: Present: bradycardia, irregular rhythm Course Vital Signs 06/26/18 06/26/18 06/26/18 10:59 11:30 13:00 Temperature 98 F Pulse Rate 48 L 46 L Respiratory 20 27 H 16 Rate Blood Pressure 194/87 194/87 122/102 O2 Sat by Pulse 100 93 L 95 Oximetry - Reevaluation(s) Reevaluation #1: 06/26/18 14:14 I did reevaluate the patient after IV hydration and family members are present. Patient is more alert but she'll still believes she is at home. Medical Decision Making - Medical Decision Making I did discuss the findings with the patient family patient be admitted place an IV antibiotics UTIs considered as well as a pneumonitis - Lab Data Result diagrams: 06/26/18 11:08 06/26/18 11:08 Lab Results 06/26/18 06/26/18 06/26/18 Range/Units 11:07 11:08 11:08 WBC 11.0 H (3.8-10.6) k/uL RBC 5.35 (3.80-5.40) m/uL Hgb 13.6 (11.4-16.0) gm/dL Hct 44.2 (34.0-46.0) % MCV 82.5 (80.0-100.0) fL MCH 25.4 (25.0-35.0) pg MCHC 30.7 L (31.0-37.0) g/dL RDW 14.9 (11.5-15.5) % Plt Count 195 (150-450) k/uL Neutrophils % 80 % Lymphocytes % 11 % Monocytes % 6 % Eosinophils % 1 % Basophils % 0 % Neutrophils # 8.8 H (1.3-7.7) k/uL Lymphocytes # 1.2 (1.0-4.8) k/uL Monocytes # 0.6 (0-1.0) k/uL Eosinophils # 0.1 (0-0.7) k/uL Basophils # 0.0 (0-0.2) k/uL Hypochromasia Moderate PT (9.0-12.0) sec INR (<1.2) APTT (22.0-30.0) sec Sodium (137-145) mmol/L Potassium (3.5-5.1) mmol/L Chloride (98-107) mmol/L Carbon Dioxide (22-30) mmol/L Anion Gap mmol/L BUN (7-17) mg/dL Creatinine (0.52-1.04) mg/dL Est GFR (CKD-EPI)AfAm (>60 ml/min/1.73 sqM) Est GFR (CKD-EPI)NonAf (>60 ml/min/1.73 sqM) Glucose (74-99) mg/dL POC Glucose (mg/dL) 170 H (75-99) mg/dL POC Glu Gis Analyst Developer ID [email or web address] hughes Plasma Lactic Acid Frank (0.7-2.0) mmol/L Calcium (8.4-10.2) mg/dL Total Bilirubin (0.2-1.3) mg/dL AST (14-36) U/L ALT (9-52) U/L Alkaline Phosphatase (38-126) U/L Ammonia (<30) umol/L Total Creatine Kinase 29 L (30-135) U/L CK-MB (CK-2) 0.6 (0.0-2.4) ng/mL CK-MB (CK-2) Rel Index 2.1 Troponin I 0.034 (0.000-0.034) ng/mL Total Protein (6.3-8.2) g/dL Albumin (3.5-5.0) g/dL Amylase (30-110) U/L Lipase (23-300) U/L Urine Color Urine Appearance (Clear) Urine pH (5.0-8.0) Ur Specific [place] (1.001-1.035) Urine Protein (Negative) Urine Glucose (UA) (Negative) Urine Ketones (Negative) Urine Blood (Negative) Urine Nitrite (Negative) Urine Bilirubin (Negative) Urine Urobilinogen (<2.0) mg/dL Ur Leukocyte Esterase (Negative) Urine RBC (0-5) /hpf Urine WBC (0-5) /hpf Urine WBC Clumps (None) /hpf Urine Bacteria (None) /hpf Urine Opiates Screen (NotDetected) Ur Oxycodone Screen (NotDetected) Urine Methadone Screen (NotDetected) Ur Propoxyphene Screen (NotDetected) Ur Barbiturates Screen (NotDetected) U Tricyclic Antidepress (NotDetected) Ur Phencyclidine Scrn (NotDetected) Ur Amphetamines Screen (NotDetected) U Methamphetamines Scrn (NotDetected) U Benzodiazepines Scrn (NotDetected) Urine Cocaine Screen (NotDetected) U Marijuana (THC) Screen (NotDetected) 06/26/18 06/26/18 06/26/18 Range/Units 11:08 11:08 11:08 WBC (3.8-10.6) k/uL RBC (3.80-5.40) m/uL Hgb (11.4-16.0) gm/dL Hct (34.0-46.0) % MCV (80.0-100.0) fL MCH (25.0-35.0) pg MCHC (31.0-37.0) g/dL RDW (11.5-15.5) % Plt Count (150-450) k/uL Neutrophils % % Lymphocytes % % Monocytes % % Eosinophils % % Basophils % % Neutrophils # (1.3-7.7) k/uL Lymphocytes # (1.0-4.8) k/uL Monocytes # (0-1.0) k/uL Eosinophils # (0-0.7) k/uL Basophils # (0-0.2) k/uL Hypochromasia PT 11.2 (9.0-12.0) sec INR 1.2 H (<1.2) APTT 22.5 (22.0-30.0) sec Sodium 137 (137-145) mmol/L Potassium 4.8 (3.5-5.1) mmol/L Chloride 101 (98-107) mmol/L Carbon Dioxide 26 (22-30) mmol/L Anion Gap 10 mmol/L BUN 26 H (7-17) mg/dL Creatinine 1.68 H (0.52-1.04) mg/dL Est GFR (CKD-EPI)AfAm 33 (>60 ml/min/1.73 sqM) Est GFR (CKD-EPI)NonAf 28 (>60 ml/min/1.73 sqM) Glucose 299 H (74-99) mg/dL POC Glucose (mg/dL) (75-99) mg/dL POC Glu Gis Analyst Developer ID Plasma Lactic Acid Frank (0.7-2.0) mmol/L Calcium 10.3 H (8.4-10.2) mg/dL Total Bilirubin 1.1 (0.2-1.3) mg/dL AST 21 (14-36) U/L ALT 37 (9-52) U/L Alkaline Phosphatase 97 (38-126) U/L Ammonia (<30) umol/L Total Creatine Kinase (30-135) U/L CK-MB (CK-2) (0.0-2.4) ng/mL CK-MB (CK-2) Rel Index Troponin I (0.000-0.034) ng/mL Total Protein 6.9 (6.3-8.2) g/dL Albumin 3.7 (3.5-5.0) g/dL Amylase 36 (30-110) U/L Lipase 60 (23-300) U/L Urine Color Urine Appearance (Clear) Urine pH (5.0-8.0) Ur Specific [place] (1.001-1.035) Urine Protein (Negative) Urine Glucose (UA) (Negative) Urine Ketones (Negative) Urine Blood (Negative) Urine Nitrite (Negative) Urine Bilirubin (Negative) Urine Urobilinogen (<2.0) mg/dL Ur Leukocyte Esterase (Negative) Urine RBC (0-5) /hpf Urine WBC (0-5) /hpf Urine WBC Clumps (None) /hpf Urine Bacteria (None) /hpf Urine Opiates Screen Not Detected (NotDetected) Ur Oxycodone Screen Not Detected (NotDetected) Urine Methadone Screen Not Detected (NotDetected) Ur Propoxyphene Screen Not Detected (NotDetected) Ur Barbiturates Screen Not Detected (NotDetected) U Tricyclic Antidepress Not Detected (NotDetected) Ur Phencyclidine Scrn Not Detected (NotDetected) Ur Amphetamines Screen Not Detected (NotDetected) U Methamphetamines Scrn Not Detected (NotDetected) U Benzodiazepines Scrn Not Detected (NotDetected) Urine Cocaine Screen Not Detected (NotDetected) U Marijuana (THC) Screen Not Detected (NotDetected) 06/26/18 06/26/18 Range/Units 11:08 11:08 WBC (3.8-10.6) k/uL RBC (3.80-5.40) m/uL Hgb (11.4-16.0) gm/dL Hct (34.0-46.0) % MCV (80.0-100.0) fL MCH (25.0-35.0) pg MCHC (31.0-37.0) g/dL RDW (11.5-15.5) % Plt Count (150-450) k/uL Neutrophils % % Lymphocytes % % Monocytes % % Eosinophils % % Basophils % % Neutrophils # (1.3-7.7) k/uL Lymphocytes # (1.0-4.8) k/uL Monocytes # (0-1.0) k/uL Eosinophils # (0-0.7) k/uL Basophils # (0-0.2) k/uL Hypochromasia PT (9.0-12.0) sec INR (<1.2) APTT (22.0-30.0) sec Sodium (137-145) mmol/L Potassium (3.5-5.1) mmol/L Chloride (98-107) mmol/L Carbon Dioxide (22-30) mmol/L Anion Gap mmol/L BUN (7-17) mg/dL Creatinine (0.52-1.04) mg/dL Est GFR (CKD-EPI)AfAm (>60 ml/min/1.73 sqM) Est GFR (CKD-EPI)NonAf (>60 ml/min/1.73 sqM) Glucose (74-99) mg/dL POC Glucose (mg/dL) (75-99) mg/dL POC Glu Gis Analyst Developer ID Plasma Lactic Acid Frank 1.6 (0.7-2.0) mmol/L Calcium (8.4-10.2) mg/dL Total Bilirubin (0.2-1.3) mg/dL AST (14-36) U/L ALT (9-52) U/L Alkaline Phosphatase (38-126) U/L Ammonia <9 (<30) umol/L Total Creatine Kinase (30-135) U/L CK-MB (CK-2) (0.0-2.4) ng/mL CK-MB (CK-2) Rel Index Troponin I (0.000-0.034) ng/mL Total Protein (6.3-8.2) g/dL Albumin (3.5-5.0) g/dL Amylase (30-110) U/L Lipase (23-300) U/L Urine Color Yellow Urine Appearance Turbid H (Clear) Urine pH 6.5 (5.0-8.0) Ur Specific [place] 1.012 (1.001-1.035) Urine Protein 2+ H (Negative) Urine Glucose (UA) Negative (Negative) Urine Ketones Negative (Negative) Urine Blood Small H (Negative) Urine Nitrite Negative (Negative) Urine Bilirubin Negative (Negative) Urine Urobilinogen <2.0 (<2.0) mg/dL Ur Leukocyte Esterase Large H (Negative) Urine RBC 7 H (0-5) /hpf Urine WBC >182 H (0-5) /hpf Urine WBC Clumps Few H (None) /hpf Urine Bacteria Occasional H (None) /hpf Urine Opiates Screen (NotDetected) Ur Oxycodone Screen (NotDetected) Urine Methadone Screen (NotDetected) Ur Propoxyphene Screen (NotDetected) Ur Barbiturates Screen (NotDetected) U Tricyclic Antidepress (NotDetected) Ur Phencyclidine Scrn (NotDetected) Ur Amphetamines Screen (NotDetected) U Methamphetamines Scrn (NotDetected) U Benzodiazepines Scrn (NotDetected) Urine Cocaine Screen (NotDetected) U Marijuana (THC) Screen (NotDetected) - Radiology Data Radiology results: report reviewed (X-ray shows evidence of atelectasis in the bases though a pneumonia as not totally ruled out.), image reviewed Disposition Clinical Impression: Altered mental status, Urinary tract infection, Pneumonitis, Dehydration, Atrial flutter Disposition: ADMITTED IP TO THIS HOSP Condition: Stable Referrals: Chris Turner DO [Primary Care Provider] - 1-2 days
[2018-06-26] MEDS ORDERED: AZITHROMYCIN 500 MG in SODIUM CHLORIDE 0.9% 250 ML IVPB STA (14:21)
[2018-06-26] MEDS: SODIUM CHLORIDE 0.9% 1,000 ML IV SCH (14:52)
[2018-06-26 16:36] LABS: Glucose,Whole Blood 184 mg/dL (75-99)
[2018-06-26] MEDS ORDERED: ALPRAZolam 0.25 MG TAB PO PRN (16:46)
[2018-06-26] MEDS: METOPROLOL TARTRATE 25 MG TAB PO SCH ×2 (21:37→22:06)
[2018-06-26] MEDS: APIXABAN 2.5 MG TABLET PO SCH ×2 (21:37→22:13)
[2018-06-26 21:44] LABS: Glucose,Whole Blood 195 mg/dL (75-99)
[2018-06-26] MEDS: INSULIN DETEMIR 100 UNIT/ML 10 ML VIAL SQ SCH (22:08)
[2018-06-27 01:28] LABS: Glucose,Whole Blood 169 mg/dL (75-99)
[2018-06-27] MEDS: SODIUM CHLORIDE 0.9% 1,000 ML IV SCH ×2 (03:33→18:16)
[2018-06-27 07:46] LABS: Glucose,Whole Blood 143 mg/dL (75-99)
[2018-06-27] MEDS: ACETAMINOPHEN TAB 325 MG TAB PO PRN (10:12)
[2018-06-27] MEDS: AZITHROMYCIN 500 MG TAB PO SCH ×2 (10:13→11:11)
[2018-06-27] MEDS: METOPROLOL TARTRATE 25 MG TAB PO SCH (10:14)
[2018-06-27] MEDS: APIXABAN 2.5 MG TABLET PO SCH ×3 (10:14→20:55)
[2018-06-27] MEDS: FUROSEMIDE 40 MG TAB PO SCH ×2 (10:15→11:11)
[2018-06-27] MEDS: ANASTROZOLE 1 MG TAB PO SCH ×2 (10:15→11:11)
[2018-06-27] MEDS: ASPIRIN 81 MG PO SCH ×2 (10:15→11:11)
[2018-06-27] MEDS: POTASSIUM CHLORIDE ER 10 MEQ TAB.ER.PRT PO SCH ×2 (10:16→11:11)
[2018-06-27] MEDS: CYANOCOBALAMIN 500 MCG TAB PO SCH (10:17)
[2018-06-27] MEDS ORDERED: ACETAMINOPHEN IV (For NPO) 1,000 MG in EMPTY BAG 1 BAG IVPB PRN (10:59)
[2018-06-27] MEDS ORDERED: ONDANSETRON 4 MG/2 ML VIAL IVP PRN (11:01)
[2018-06-27] MEDS: ASCORBIC ACID 500 MG TAB PO SCH (11:09)
[2018-06-27] MEDS: INSULIN ASPART 100 UNIT/ML 1 ML 10 ML VIAL SQ SCH ×4 (11:11→20:55)
[2018-06-27 11:16] LABS: Basophils % (A) 0 %; Eosinophils # (A) 0.1 k/uL (0-0.7); Eosinophils % (A) 1 %; HCT 42.4 % (34.0-46.0); HGB 12.9 gm/dL (11.4-16.0); Hypochromasia Marked; Lymphocytes # (A) 0.9 k/uL (1.0-4.8); Lymphocytes % (A) 7 %; MCH 25.2 pg (25.0-35.0); MCHC 30.3 g/dL (31.0-37.0); MCV 83.1 fL (80.0-100.0); Mean Platelet Volume 7.1; Monocytes # (A) 0.7 k/uL (0-1.0); Monocytes % (A) 6 %; Neutrophils # (A) 9.8 k/uL (1.3-7.7); Neutrophils % (A) 84 %; Platelet Count 216 k/uL (150-450); RBC 5.11 m/uL (3.80-5.40); RDW 14.9 % (11.5-15.5); WBC 11.7 k/uL (3.8-10.6)
[2018-06-27 11:29] LABS: Albumin 3.3 g/dL (3.5-5.0); Calcium 9.4 mg/dL (8.4-10.2); Potassium 4.5 mmol/L (3.5-5.1); Total Bilirubin 1.1 mg/dL (0.2-1.3); Total Protein 6.3 g/dL (6.3-8.2)
--- NOTE | 2018-06-27 11:29 | P.HPIM ---
History of Present Illness H&P Date: 06/27/18 Chief Complaint: confusion 82-year-old female with a past medical history significant for diabetes, DVT, hyperlipidemia, hypertension, right breast cancer with metastasis to spine and right mastectomy, who presented to the emergency room due to altered mental status. Family is at the bedside and reports patient has been very confused, which is not her baseline. Patient also is very weak and has been unable to ambulate as she normally does. Family also reports decreased oral intake. Chest x-ray completed in the emergency room was negative for an acute process. Linear subsegmental changes involving the lung bases for which atelectasis or pneumonia. Diffuse osseous metastasis. CT of the brain reveals age related atrophic and chronic small vessel ischemic changes without acute intracranial process. Laboratory data upon admission reveals white count 11.0. Hemoglobin 13.6. Platelet count 195. Sodium 137. Potassium 4.8. BUN 26. Creatinine 1.68. Troponin 0.034. Urine analysis reveals turbid yellow urine, 2+ proteinuria, small blood, large leukocyte esterase, RBC 7, WBC greater than 182. Toxicology screen was negative. Lactic acid 1.6. The patient was admitted to the hospital under the care of Dr. Turner. Consultations were placed to oncology. REVIEW OF SYSTEMS: Those systems with pertinent positive or pertinent negative responses have been documented in the HPI PHYSICAL EXAM: GENERAL: This is a 82-year-old female in no apparent distress at the time of examination. HEENT: Head is atraumatic, normocephalic. Pupils are equal, round, and reactive to light. Sclerae anicteric. Conjunctivae are clear. Mucus membranes of the mouth are moist. Neck is supple. RESPIRATORY: Clear to auscultation, diminished. No wheezes, rales, or rhonchi. No use of accessory muscles. Patient maintaining oxygen saturation greater than 92%. No chest wall tenderness is noted on palpation or with deep breathing. CARDIOVASCULAR: Bradycardic. Regular rate and rhythm. S1 and S2 noted. No JVD noted. No S3 or S4 noted. GASTROINTESTINAL: No distention noted. Abdomen soft and round. Normal active bowel sounds auscultated x 4 quadrants. No pain or tenderness noted upon palpation. INTEGUMENTARY: No cyanosis. No jaundice. No rashes noted. No cellulitis noted. EXTREMITIES: 2+ peripheral pulses. Trace bilateral lower extremity edema. No calf tenderness noted. NEUROLOGIC: Cranial nerves II-XII grossly intact. PSYCHIATRIC: Lethargic, but mentation seems to be improving. Mentation remains altered, but also improving. ASSESSMENT: Urinary tract infection, present on admission Encephalopathy secondary to infectious process Leukocytosis Diabetes mellitus, type II Hypertension Hyperlipidemia History of atrial flutter Right breast cancer with metastasis to spine and right mastectomy Chronic kidney disease, stage IV PLAN: Oncology on consult. Await further recommendations and input Continue IV fluids Continue ceftriaxone. Discontinue Zithromax Await results of urine culture Hold beta perfecto due to bradycardia Home meds as appropriate Monitor labs GI prophylaxis: Pepcid 20mg PO BID DVT prophylaxis: Eliquis 2.5 mg by mouth twice a day Monitor vital signs and address as appropriate Discharge planning: Patient currently lives alone. Will consult PT/OT for evaluation. Further recommendations pending patient's course Nurse practitioner note has been reviewed by physician. Signing provider agrees with the documented findings, assessment, and plan of care. Past Medical History Past Medical History: Atrial Flutter, Cancer, Diabetes Mellitus, Deep Vein Thrombosis (DVT), Eye Disorder, Hyperlipidemia, Hypertension, Memory Impairment , Renal Disease Additional Past Medical History / Comment(s): hx. rt breast cancer-2014 has mets to spine(sx and radiation tx and currently reciving hormone blockers, metastasis to spine-gets tx.hx of anemia requiring blood transfusion, DVT leg years ago, uses walker, bone CA-sees dr hu, kidney stones(sx), uti's/ urosepsis/bacteremia,ad foot fx-no sx just casted. 2016 fall/rhabomyolosis/ akf. family stated pt has kidney disease but refused to seek tx per specilaist" History of Any Multi-Drug Resistant Organisms: None Reported Past Surgical History: Breast Surgery, Cholecystectomy, Heart Catheterization, Tubal Ligation Additional Past Surgical History / Comment(s): right mastectomy, cataracts removed, excision of lesion rt cheek, steroid inj in past for heel spur, lithotripsy Past Anesthesia/Blood Transfusion Reactions: No Reported Reaction Smoking Status: Never smoker - Past Family History Mother Family Medical History: Diabetes Mellitus Father Family Medical History: Congestive Heart Failure (CHF) Medications and Allergies Home Medications Medication Instructions Recorded Confirmed Type Anastrozole [Arimidex] 1 mg PO DAILY 05/14/15 06/26/18 History Metoprolol Tartrate [Lopressor] 25 mg PO BID tab 04/20/16 06/26/18 Rx Aspirin [Adult Low Dose Aspirin EC] 81 mg PO DAILY 10/06/17 06/26/18 History Furosemide [Lasix] 40 mg PO DAILY 10/06/17 06/26/18 History Apixaban [Eliquis] 2.5 mg PO BID 06/26/18 06/26/18 History Ascorbic Acid [Vitamin C] 500 mg PO DAILY 06/26/18 06/26/18 History Cyanocobalamin (Vitamin B-12) 2,500 mcg PO DAILY 06/26/18 06/26/18 History [Vitamin B12] Potassium Chloride ER [K-Dur 10] 10 meq PO DAILY 06/26/18 06/26/18 History Allergies Allergy/AdvReac Type Severity Reaction Status Date / Time codeine Allergy Abdominal Verified 06/26/18 11:25 Pain Physical Exam Vitals: Vital Signs Temp Pulse Pulse Pulse Resp BP BP 06/27/18 07:24 99.0 F 48 L 16 125/56 06/26/18 23:00 98.2 F 50 L 16 186/67 06/26/18 20:04 50 L 06/26/18 15:23 46 L 16 100/84 06/26/18 13:00 16 122/102 06/26/18 11:30 46 L 27 H 194/87 Pulse Ox 06/27/18 07:24 96 06/26/18 23:00 93 L 06/26/18 20:04 06/26/18 15:23 95 06/26/18 13:00 95 06/26/18 11:30 93 L Intake and Output 06/26/18 06/27/18 06/27/18 22:59 06:59 14:59 Intake Total 100 640 Balance 100 640 Intake: Intake, IV Titration 640 Amount Sodium Chloride 0.9% 1, 640 000 ml @ 80 mls/hr IV . [id number] [facility] Rx#:[id number] Oral 100 Other: Voiding Method Incontinent Incontinent # Voids 1 Results CBC & Chem 7: 06/26/18 11:08 06/26/18 11:08 Labs: Abnormal Lab Results - Last 24 Hours (Table) 06/26/18 06/26/18 06/26/18 Range/Units 11:07 11:08 11:08 WBC 11.0 H (3.8-10.6) k/uL MCHC 30.7 L (31.0-37.0) g/dL Neutrophils # 8.8 H (1.3-7.7) k/uL INR (<1.2) BUN (7-17) mg/dL Creatinine (0.52-1.04) mg/dL Glucose (74-99) mg/dL POC Glucose (mg/dL) 170 H (75-99) mg/dL Calcium (8.4-10.2) mg/dL Total Creatine Kinase 29 L (30-135) U/L Urine Appearance (Clear) Urine Protein (Negative) Urine Blood (Negative) Ur Leukocyte Esterase (Negative) Urine RBC (0-5) /hpf Urine WBC (0-5) /hpf Urine WBC Clumps (None) /hpf Urine Bacteria (None) /hpf 06/26/18 06/26/18 06/26/18 Range/Units 11:08 11:08 11:08 WBC (3.8-10.6) k/uL MCHC (31.0-37.0) g/dL Neutrophils # (1.3-7.7) k/uL INR 1.2 H (<1.2) BUN 26 H (7-17) mg/dL Creatinine 1.68 H (0.52-1.04) mg/dL Glucose 299 H (74-99) mg/dL POC Glucose (mg/dL) (75-99) mg/dL Calcium 10.3 H (8.4-10.2) mg/dL Total Creatine Kinase (30-135) U/L Urine Appearance Turbid H (Clear) Urine Protein 2+ H (Negative) Urine Blood Small H (Negative) Ur Leukocyte Esterase Large H (Negative) Urine RBC 7 H (0-5) /hpf Urine WBC >182 H (0-5) /hpf Urine WBC Clumps Few H (None) /hpf Urine Bacteria Occasional H (None) /hpf 06/26/18 06/26/18 06/27/18 Range/Units 16:34 21:35 01:25 WBC (3.8-10.6) k/uL MCHC (31.0-37.0) g/dL Neutrophils # (1.3-7.7) k/uL INR (<1.2) BUN (7-17) mg/dL Creatinine (0.52-1.04) mg/dL Glucose (74-99) mg/dL POC Glucose (mg/dL) 184 H 195 H 169 H (75-99) mg/dL Calcium (8.4-10.2) mg/dL Total Creatine Kinase (30-135) U/L Urine Appearance (Clear) Urine Protein (Negative) Urine Blood (Negative) Ur Leukocyte Esterase (Negative) Urine RBC (0-5) /hpf Urine WBC (0-5) /hpf Urine WBC Clumps (None) /hpf Urine Bacteria (None) /hpf 06/27/18 Range/Units 07:26 WBC (3.8-10.6) k/uL MCHC (31.0-37.0) g/dL Neutrophils # (1.3-7.7) k/uL INR (<1.2) BUN (7-17) mg/dL Creatinine (0.52-1.04) mg/dL Glucose (74-99) mg/dL POC Glucose (mg/dL) 143 H (75-99) mg/dL Calcium (8.4-10.2) mg/dL Total Creatine Kinase (30-135) U/L Urine Appearance (Clear) Urine Protein (Negative) Urine Blood (Negative) Ur Leukocyte Esterase (Negative) Urine RBC (0-5) /hpf Urine WBC (0-5) /hpf Urine WBC Clumps (None) /hpf Urine Bacteria (None) /hpf Microbiology - Last 24 Hours (Table) 06/26/18 11:08 Urine Culture - Preliminary Urine,Voided Thrombosis Risk Factor Assmnt - Choose All That Apply Any of the Below Risk Factors Present?: Yes Each Factor Represents 1 point: Obesity (BMI >25), Swollen legs (current) Other Risk Factors: No Each Risk Factor Represents 3 Points: Age 75 years or older Other congenital or acquired thrombophilia - If yes, enter type in comment: No Thrombosis Risk Factor Assessment Total Risk Factor Score: 5 Thrombosis Risk Factor Assessment Level: High Risk
[2018-06-27] MEDS ORDERED: FAMOTIDINE 20 MG/2 ML VIAL IV SCH (11:30)
[2018-06-27 11:53] LABS: Glucose,Whole Blood 156 mg/dL (75-99)
[2018-06-27] MEDS: NAPROXEN 250 MG TAB PO SCH (14:21)
--- NOTE | 2018-06-27 15:47 | P.CONS ---
History of Present Illness - Reason for Consult Consult date: 06/27/18 on treatment for metastatic breast cancer Requesting physician: Mukesh Lewis - Chief Complaint AMS - History of Present Illness Emy is a very pleasant female pt of Dr. Staples with a history of breast cancer. She had a palpable right breast mass which she first noticed in early 2011 but did not seek medical attention for it until it became significantly larger, November 2013 she had mammograms which revealed a large suspicious mass in the left breast, biopsy confirmed invasive carcinoma. she had a right mastectomy and axillary nodes resection, final pathology revealed a grade II, invasive ductal carcinoma, 4.5cm, 2 nodes were positive for metastatic disease, one microscopic mets and one macroscopic measuring 2.5cm , ER/KS postive and HER2/FELA negative by FISH. Staging PET scan done on 12/14/13 revealed diffuse skeletal metastasis, no visceral disease. She started arimidex in December 2013. She had a thoracic spine MRI 01/27/14 which revealed multiple soft tissue masses at thoracic spine. Completed XRT to T spine on . Was monthly IVPB zometa for bone mets, this was eventually switched to SQ xgeva. Treatment f/u bone scan 11/24/14 revealed improvement in her bone metastasis. She fell in November 2015, CT brain was negative for metastatic disease , CT of neck revealed stable bone lesions. CT CAP and bone scan on 12/18/15 revealed no evidence of disease progression. F/U scans 10/24/16 and 11/06/17 have both revealed stable disease. Pt admitted for AMS, UA suspicious C&S preliminary gram neg bacilli, on abx. Pt is not able to remember what happened, per notes pt was found by a visitor to her home, she denies CALI, nausea, or pain, she would like her teeth to eat her lunch. Review of Systems 14 point ROS is negative except as stated in HPI Past Medical History Past Medical History: Atrial Flutter, Cancer, Diabetes Mellitus, Deep Vein Thrombosis (DVT), Eye Disorder, Hyperlipidemia, Hypertension, Memory Impairment , Renal Disease Additional Past Medical History / Comment(s): hx. rt breast cancer-2014 has mets to spine(sx and radiation tx and currently reciving hormone blockers, metastasis to spine-gets tx.hx of anemia requiring blood transfusion, DVT leg years ago, uses walker, bone CA-sees dr staples, kidney stones(sx), uti's/ urosepsis/bacteremia,ad foot fx-no sx just casted. 2016 fall/rhabomyolosis/ akf. family stated pt has kidney disease but refused to seek tx per specilaist" History of Any Multi-Drug Resistant Organisms: None Reported Past Surgical History: Breast Surgery, Cholecystectomy, Heart Catheterization, Tubal Ligation Additional Past Surgical History / Comment(s): right mastectomy, cataracts removed, excision of lesion rt cheek, steroid inj in past for heel spur, lithotripsy Past Anesthesia/Blood Transfusion Reactions: No Reported Reaction Smoking Status: Never smoker - Past Family History Mother Family Medical History: Diabetes Mellitus Father Family Medical History: Congestive Heart Failure (CHF) Medications and Allergies Home Medications Medication Instructions Recorded Confirmed Type Anastrozole [Arimidex] 1 mg PO DAILY 05/14/15 06/26/18 History Metoprolol Tartrate [Lopressor] 25 mg PO BID tab 04/20/16 06/26/18 Rx Aspirin [Adult Low Dose Aspirin EC] 81 mg PO DAILY 10/06/17 06/26/18 History Furosemide [Lasix] 40 mg PO DAILY 10/06/17 06/26/18 History Apixaban [Eliquis] 2.5 mg PO BID 06/26/18 06/26/18 History Ascorbic Acid [Vitamin C] 500 mg PO DAILY 06/26/18 06/26/18 History Cyanocobalamin (Vitamin B-12) 2,500 mcg PO DAILY 06/26/18 06/26/18 History [Vitamin B12] Potassium Chloride ER [K-Dur 10] 10 meq PO DAILY 06/26/18 06/26/18 History Allergies Allergy/AdvReac Type Severity Reaction Status Date / Time codeine Allergy Abdominal Verified 06/26/18 11:25 Pain Physical Exam Vitals: Vital Signs Temp Pulse Pulse Resp BP BP Pulse Ox 06/27/18 13:52 96.7 F L 49 L 18 145/70 93 L 06/27/18 07:24 99.0 F 48 L 16 125/56 96 06/26/18 23:00 98.2 F 50 L 16 186/67 93 L 06/26/18 20:04 50 L Intake and Output 06/27/18 06/27/18 06/27/18 06:59 14:59 22:59 Intake Total 640 Balance 640 Intake: Intake, IV Titration 640 Amount Sodium Chloride 0.9% 1, 640 000 ml @ 80 mls/hr IV . [id number] PENDING [facility] TO [facility] Rx#:[id number] Other: Voiding Method Incontinent # Voids 1 2 - Constitutional General appearance: average body habitus, cooperative, no acute distress - EENT Eyes: anicteric sclerae, edentulous (false teeth being cleaned), EOMI ENT: normal oropharynx - Neck Neck: no lymphadenopathy - Respiratory Respiratory: bilateral: CTA - Cardiovascular Heart sounds: normal: S1, S2 Abnormal Heart Sounds: systolic murmur leg Peripheral Edema: bilateral: Trace - Gastrointestinal General gastrointestinal: no absent bowel sounds, no decreased bowel sounds, no distended, no hepatomegaly, no hyperactive bowel sounds, normal bowel sounds, no organomegaly, no rigid, no scaphoid, soft, no splenomegaly, no tenderness, no umbilical hernia, no ventral hernia - Integumentary Integumentary: normal - Neurologic no gross focal or motor deficits noted - Musculoskeletal Musculoskeletal: generalized weakness - Psychiatric Psychiatric: A&O x's 3, appropriate affect Results CBC & Chem 7: 06/27/18 11:06 06/27/18 11:06 Labs: Abnormal Lab Results - Last 24 Hours (Table) 06/26/18 06/26/18 06/27/18 Range/Units 16:34 21:35 01:25 WBC (3.8-10.6) k/uL MCHC (31.0-37.0) g/dL Neutrophils # (1.3-7.7) k/uL Lymphocytes # (1.0-4.8) k/uL BUN (7-17) mg/dL Creatinine (0.52-1.04) mg/dL Glucose (74-99) mg/dL POC Glucose (mg/dL) 184 H 195 H 169 H (75-99) mg/dL Albumin (3.5-5.0) g/dL 06/27/18 06/27/18 06/27/18 Range/Units 07:26 11:06 11:06 WBC 11.7 H (3.8-10.6) k/uL MCHC 30.3 L (31.0-37.0) g/dL Neutrophils # 9.8 H (1.3-7.7) k/uL Lymphocytes # 0.9 L (1.0-4.8) k/uL BUN 23 H (7-17) mg/dL Creatinine 1.64 H (0.52-1.04) mg/dL Glucose 163 H (74-99) mg/dL POC Glucose (mg/dL) 143 H (75-99) mg/dL Albumin 3.3 L (3.5-5.0) g/dL 06/27/18 Range/Units 11:47 WBC (3.8-10.6) k/uL MCHC (31.0-37.0) g/dL Neutrophils # (1.3-7.7) k/uL Lymphocytes # (1.0-4.8) k/uL BUN (7-17) mg/dL Creatinine (0.52-1.04) mg/dL Glucose (74-99) mg/dL POC Glucose (mg/dL) 156 H (75-99) mg/dL Albumin (3.5-5.0) g/dL Microbiology - Last 24 Hours (Table) 06/26/18 11:08 Urine Culture - Preliminary Urine,Voided Gram Neg Bacilli Chest x-ray: report reviewed CT Scan - head: report reviewed Assessment and Plan (1) 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 Appt date and time for f/u appt in chart. Cont current treatment of breast cancer. Current Visit: No Status: Chronic Priority: Low Code(s): C50.911 - MALIGNANT NEOPLASM OF UNSP SITE OF RIGHT FEMALE BREAST; C79.51 - SECONDARY MALIGNANT NEOPLASM OF BONE SNOMED Code(s): 170355754
[2018-06-27 16:35] LABS: Hemoglobin A1C 8.9 % (4.0-6.0)
[2018-06-27 17:34] LABS: Glucose,Whole Blood 151 mg/dL (75-99)
[2018-06-27 20:55] LABS: Glucose,Whole Blood 201 mg/dL (75-99)
[2018-06-27] MEDS: INSULIN DETEMIR 100 UNIT/ML 10 ML VIAL SQ SCH (20:55)
[2018-06-28] MEDS: SODIUM CHLORIDE 0.9% 1,000 ML IV SCH ×2 (04:53→17:43)
[2018-06-28 07:27] LABS: Glucose,Whole Blood 67 mg/dL (75-99)
[2018-06-28 07:45] LABS: Glucose,Whole Blood 72 mg/dL (75-99)
[2018-06-28] MEDS: APIXABAN 2.5 MG TABLET PO SCH ×2 (09:23→21:17)
[2018-06-28] MEDS: INSULIN ASPART 100 UNIT/ML 1 ML 10 ML VIAL SQ SCH ×4 (09:24→21:24)
[2018-06-28] MEDS: FUROSEMIDE 40 MG TAB PO SCH (09:24)
[2018-06-28] MEDS: ASCORBIC ACID 500 MG TAB PO SCH (09:24)
[2018-06-28] MEDS: POTASSIUM CHLORIDE ER 10 MEQ TAB.ER.PRT PO SCH (09:24)
[2018-06-28] MEDS: FAMOTIDINE 20 MG TAB PO SCH (09:24)
[2018-06-28] MEDS: ANASTROZOLE 1 MG TAB PO SCH (09:24)
[2018-06-28] MEDS: ASPIRIN 81 MG PO SCH (09:24)
[2018-06-28] MEDS: CYANOCOBALAMIN 500 MCG TAB PO SCH (09:25)
--- NOTE | 2018-06-28 10:10 | P.PN ---
Subjective Progress Note Date: 06/28/18 82-year-old female with a past medical history significant for diabetes, DVT, hyperlipidemia, hypertension, right breast cancer with metastasis to spine and right mastectomy, who presented to the emergency room due to altered mental status. Family is at the bedside and reports patient has been very confused, which is not her baseline. Patient also is very weak and has been unable to ambulate as she normally does. Family also reports decreased oral intake. Chest x-ray completed in the emergency room was negative for an acute process. Linear subsegmental changes involving the lung bases for which atelectasis or pneumonia. Diffuse osseous metastasis. CT of the brain reveals age related atrophic and chronic small vessel ischemic changes without acute intracranial process. Laboratory data upon admission reveals white count 11.0. Hemoglobin 13.6. Platelet count 195. Sodium 137. Potassium 4.8. BUN 26. Creatinine 1.68. Troponin 0.034. Urine analysis reveals turbid yellow urine, 2+ proteinuria, small blood, large leukocyte esterase, RBC 7, WBC greater than 182. Toxicology screen was negative. Lactic acid 1.6. The patient was admitted to the hospital under the care of Dr. Turner. Consultations were placed to oncology. 06/28/18 Patient examined at the bedside. She is awake and alert. Her mentation is back to her baseline. She had a couple episodes of nausea yesterday which has resolved. Blood sugar this morning was low at 67. Repeat 72. Vital signs are stable. Remains bradycardic. Beta perfecto is on hold. Urine culture is positive for ecoli. PT/OT has been consulted to evaluate patient. Due to her weakness, she will likely require DRE at discharge. PHYSICAL EXAM: GENERAL: This is a 82-year-old female in no apparent distress at the time of examination. HEENT: Head is atraumatic, normocephalic. Pupils are equal, round, and reactive to light. Sclerae anicteric. Conjunctivae are clear. Mucus membranes of the mouth are moist. Neck is supple. RESPIRATORY: Clear to auscultation, diminished. No wheezes, rales, or rhonchi. No use of accessory muscles. Patient maintaining oxygen saturation greater than 92%. No chest wall tenderness is noted on palpation or with deep breathing. CARDIOVASCULAR: Bradycardic. Regular rate and rhythm. S1 and S2 noted. No JVD noted. No S3 or S4 noted. GASTROINTESTINAL: No distention noted. Abdomen soft and round. Normal active bowel sounds auscultated x 4 quadrants. No pain or tenderness noted upon palpation. INTEGUMENTARY: No cyanosis. No jaundice. No rashes noted. No cellulitis noted. EXTREMITIES: 2+ peripheral pulses. Trace bilateral lower extremity edema. No calf tenderness noted. NEUROLOGIC: Cranial nerves II-XII grossly intact. PSYCHIATRIC: Awake and alert. Oriented 3. Mentation back to baseline. ASSESSMENT: Urinary tract infection, present on admission, urine culture positive for E. coli Encephalopathy secondary to infectious process, resolved Leukocytosis Diabetes mellitus, type II Hypertension Hyperlipidemia History of atrial flutter Right breast cancer with metastasis to spine and right mastectomy Chronic kidney disease, stage IV PLAN: Oncology on consult. Appreciate recommendations and input Decrease IV fluids Continue ceftriaxone Hold beta perfecto due to bradycardia Decrease levemir to 30 units Home meds as appropriate Monitor labs GI prophylaxis: Pepcid 20mg PO BID DVT prophylaxis: Eliquis 2.5 mg by mouth twice a day Monitor vital signs and address as appropriate Discharge planning: Patient currently lives alone. Will consult PT/OT for evaluation. Suspect patient will require DRE at discharge due to weakness. Further recommendations pending patient's course Nurse practitioner note has been reviewed by physician. Signing provider agrees with the documented findings, assessment, and plan of care. Objective - Vital Signs Vital signs: Vital Signs Temp 96.8 F L 06/28/18 07:00 Pulse 48 L 06/28/18 07:00 Resp 16 06/28/18 07:00 BP 132/55 06/28/18 07:00 Pulse Ox 96 06/28/18 07:00 Intake & Output 06/27/18 06/28/18 06/28/18 18:59 06:59 18:59 Intake Total 300 Balance 300 Weight 77.111 kg Intake: Oral 300 Other: Voiding Method Incontinent Incontinent # Voids 1 1 - Labs CBC & Chem 7: 06/27/18 11:06 06/27/18 11:06 Labs: Abnormal Lab Results - Last 24 Hours (Table) 06/26/18 06/27/18 06/27/18 Range/Units 11:08 11:06 11:06 WBC 11.7 H (3.8-10.6) k/uL MCHC 30.3 L (31.0-37.0) g/dL Neutrophils # 9.8 H (1.3-7.7) k/uL Lymphocytes # 0.9 L (1.0-4.8) k/uL BUN 23 H (7-17) mg/dL Creatinine 1.64 H (0.52-1.04) mg/dL Glucose 163 H (74-99) mg/dL POC Glucose (mg/dL) (75-99) mg/dL Hemoglobin A1c 8.9 H (4.0-6.0) % Albumin 3.3 L (3.5-5.0) g/dL 06/27/18 06/27/18 06/27/18 Range/Units 11:47 17:32 20:51 WBC (3.8-10.6) k/uL MCHC (31.0-37.0) g/dL Neutrophils # (1.3-7.7) k/uL Lymphocytes # (1.0-4.8) k/uL BUN (7-17) mg/dL Creatinine (0.52-1.04) mg/dL Glucose (74-99) mg/dL POC Glucose (mg/dL) 156 H 151 H 201 H (75-99) mg/dL Hemoglobin A1c (4.0-6.0) % Albumin (3.5-5.0) g/dL 06/28/18 06/28/18 Range/Units 07:24 07:42 WBC (3.8-10.6) k/uL MCHC (31.0-37.0) g/dL Neutrophils # (1.3-7.7) k/uL Lymphocytes # (1.0-4.8) k/uL BUN (7-17) mg/dL Creatinine (0.52-1.04) mg/dL Glucose (74-99) mg/dL POC Glucose (mg/dL) 67 L 72 L (75-99) mg/dL Hemoglobin A1c (4.0-6.0) % Albumin (3.5-5.0) g/dL Microbiology - Last 24 Hours (Table) 06/26/18 11:08 Urine Culture - Final Urine,Voided Escherichia coli
[2018-06-28 12:38] LABS: Glucose,Whole Blood 135 mg/dL (75-99)
[2018-06-28] MEDS: NAPROXEN 250 MG TAB PO SCH (13:11)
[2018-06-28] MEDS: ACETAMINOPHEN TAB 325 MG TAB PO PRN (15:55)
[2018-06-28 17:36] LABS: Glucose,Whole Blood 237 mg/dL (75-99)
[2018-06-28] MEDS ORDERED: INSULIN DETEMIR 100 UNIT/ML 10 ML VIAL SQ SCH (21:00)
[2018-06-28 21:27] LABS: Glucose,Whole Blood 233 mg/dL (75-99)
[2018-06-29 07:27] LABS: Glucose,Whole Blood 146 mg/dL (75-99)
[2018-06-29 07:50] VITALS: RESP 16
[2018-06-29] MEDS: POTASSIUM CHLORIDE ER 10 MEQ TAB.ER.PRT PO SCH (08:04)
[2018-06-29] MEDS: ANASTROZOLE 1 MG TAB PO SCH (08:04)
[2018-06-29] MEDS: FAMOTIDINE 20 MG TAB PO SCH (08:04)
[2018-06-29] MEDS: ASPIRIN 81 MG PO SCH (08:04)
[2018-06-29] MEDS: INSULIN ASPART 100 UNIT/ML 1 ML 10 ML VIAL SQ SCH ×2 (08:04→12:40)
[2018-06-29] MEDS: FUROSEMIDE 40 MG TAB PO SCH (08:04)
[2018-06-29] MEDS: APIXABAN 2.5 MG TABLET PO SCH (08:04)
[2018-06-29] MEDS: CYANOCOBALAMIN 500 MCG TAB PO SCH (08:04)
[2018-06-29] MEDS: ASCORBIC ACID 500 MG TAB PO SCH ×2 (08:04→09:23)
[2018-06-29 09:11] LABS: Basophils % (A) 0 %; Eosinophils # (A) 0.5 k/uL (0-0.7); Eosinophils % (A) 7 %; HCT 41.7 % (34.0-46.0); HGB 12.6 gm/dL (11.4-16.0); Hypochromasia Marked; Lymphocytes # (A) 0.8 k/uL (1.0-4.8); Lymphocytes % (A) 12 %; MCH 25.4 pg (25.0-35.0); MCHC 30.2 g/dL (31.0-37.0); Mean Platelet Volume 7.5; Monocytes # (A) 0.4 k/uL (0-1.0); Monocytes % (A) 6 %; Neutrophils # (A) 4.9 k/uL (1.3-7.7); Neutrophils % (A) 73 %; Platelet Count 182 k/uL (150-450); RBC 4.97 m/uL (3.80-5.40); RDW 15.1 % (11.5-15.5); WBC 6.8 k/uL (3.8-10.6)
[2018-06-29 09:27] LABS: Calcium 9.3 mg/dL (8.4-10.2); Potassium 4.8 mmol/L (3.5-5.1); Total Bilirubin 0.6 mg/dL (0.2-1.3)
--- NOTE | 2018-06-29 09:35 | P.PN ---
Subjective Progress Note Date: 06/29/18 82-year-old female with a past medical history significant for diabetes, DVT, hyperlipidemia, hypertension, right breast cancer with metastasis to spine and right mastectomy, who presented to the emergency room due to altered mental status. Family is at the bedside and reports patient has been very confused, which is not her baseline. Patient also is very weak and has been unable to ambulate as she normally does. Family also reports decreased oral intake. Chest x-ray completed in the emergency room was negative for an acute process. Linear subsegmental changes involving the lung bases for which atelectasis or pneumonia. Diffuse osseous metastasis. CT of the brain reveals age related atrophic and chronic small vessel ischemic changes without acute intracranial process. Laboratory data upon admission reveals white count 11.0. Hemoglobin 13.6. Platelet count 195. Sodium 137. Potassium 4.8. BUN 26. Creatinine 1.68. Troponin 0.034. Urine analysis reveals turbid yellow urine, 2+ proteinuria, small blood, large leukocyte esterase, RBC 7, WBC greater than 182. Toxicology screen was negative. Lactic acid 1.6. The patient was admitted to the hospital under the care of Dr. Turner. Consultations were placed to oncology. 06/28/18 Patient examined at the bedside. She is awake and alert. Her mentation is back to her baseline. She had a couple episodes of nausea yesterday which has resolved. Blood sugar this morning was low at 67. Repeat 72. Vital signs are stable. Remains bradycardic. Beta perfecto is on hold. Urine culture is positive for ecoli. PT/OT has been consulted to evaluate patient. Due to her weakness, she will likely require DRE at discharge. 06/29/2018 Patient examined at the bedside. Patients mentation continues to improve. Denies chest pain. Denies shortness of breath. Denies nausea or vomiting. Tolerating oral intake. She remains bradycardic. Beta blockers remain on hold. She is hemodynamically stable. PT worked with patient yesterday who recommended [facility]. Patient states she does not want to go to rehab. Discussed discharge planning with patient. Will see how she does today with PT and ability to ambulate. If she is able to safely ambulate on her own, she may be discharged home tomorrow. If not, she will be discharged to [facility] on Monday. PHYSICAL EXAM: GENERAL: This is a 82-year-old female in no apparent distress at the time of examination. HEENT: Head is atraumatic, normocephalic. Pupils are equal, round, and reactive to light. Sclerae anicteric. Conjunctivae are clear. Mucus membranes of the mouth are moist. Neck is supple. RESPIRATORY: Clear to auscultation, diminished. No wheezes, rales, or rhonchi. No use of accessory muscles. Patient maintaining oxygen saturation greater than 92%. No chest wall tenderness is noted on palpation or with deep breathing. CARDIOVASCULAR: Bradycardic. Regular rate and rhythm. S1 and S2 noted. No JVD noted. No S3 or S4 noted. GASTROINTESTINAL: No distention noted. Abdomen soft and round. Normal active bowel sounds auscultated x 4 quadrants. No pain or tenderness noted upon palpation. INTEGUMENTARY: No cyanosis. No jaundice. No rashes noted. No cellulitis noted. EXTREMITIES: 2+ peripheral pulses. Trace bilateral lower extremity edema. No calf tenderness noted. NEUROLOGIC: Cranial nerves II-XII grossly intact. PSYCHIATRIC: Awake and alert. Oriented 3. Mentation back to baseline. ASSESSMENT: Urinary tract infection, present on admission, urine culture positive for E. coli Encephalopathy secondary to infectious process, resolved Leukocytosis Diabetes mellitus, type II Hypertension Hyperlipidemia History of atrial flutter Right breast cancer with metastasis to spine and right mastectomy Chronic kidney disease, stage IV PLAN: Oncology on consult. Appreciate recommendations and input Encourage oral fluid intake Continue ceftriaxone Hold beta perfecto due to bradycardia Home meds as appropriate Monitor labs GI prophylaxis: Pepcid 20mg PO BID DVT prophylaxis: Eliquis 2.5 mg by mouth twice a day Monitor vital signs and address as appropriate Discharge planning: PT worked with patient yesterday who recommended [facility]. Patient states she does not want to go to rehab. Discussed discharge planning with patient. Will see how she does today with PT and ability to ambulate. If she is able to safely ambulate on her own, she may be discharged home tomorrow. If not, she will be discharged to [facility] on Monday. Social work is on consult. Further recommendations pending patient's course Nurse practitioner note has been reviewed by physician. Signing provider agrees with the documented findings, assessment, and plan of care. Objective - Vital Signs Vital signs: Vital Signs Temp 97.2 F L 06/29/18 07:00 Pulse 43 L 06/29/18 07:00 Resp 16 06/29/18 07:00 BP 127/55 06/29/18 07:00 Pulse Ox 96 06/29/18 07:00 Intake & Output 06/28/18 06/29/18 06/29/18 18:59 06:59 18:59 Intake Total 850 300 Output Total 1 Balance 850 300 -1 Weight 77.111 kg Intake: Intake, IV Titration 0 Amount cefTRIAXone 1,000 mg In 0 Sodium Chloride 0.9% 50 ml @ 100 mls/hr IVPB Q24H [facility] Rx#:[id number] Oral 850 300 Output: Urine 1 Other: Voiding Method Incontinent # Voids 2 1 # Bowel Movements 1 1 - Labs CBC & Chem 7: 06/29/18 08:50 06/29/18 08:50 Labs: Abnormal Lab Results - Last 24 Hours (Table) 06/28/18 06/28/18 06/28/18 Range/Units 12:36 17:34 21:21 MCHC (31.0-37.0) g/dL Lymphocytes # (1.0-4.8) k/uL Chloride (98-107) mmol/L BUN (7-17) mg/dL Creatinine (0.52-1.04) mg/dL Glucose (74-99) mg/dL POC Glucose (mg/dL) 135 H 237 H 233 H (75-99) mg/dL Total Protein (6.3-8.2) g/dL Albumin (3.5-5.0) g/dL 06/29/18 06/29/18 06/29/18 Range/Units 07:25 08:50 08:50 MCHC 30.2 L (31.0-37.0) g/dL Lymphocytes # 0.8 L (1.0-4.8) k/uL Chloride 110 H (98-107) mmol/L BUN 27 H (7-17) mg/dL Creatinine 1.84 H (0.52-1.04) mg/dL Glucose 183 H (74-99) mg/dL POC Glucose (mg/dL) 146 H (75-99) mg/dL Total Protein 6.0 L (6.3-8.2) g/dL Albumin 3.0 L (3.5-5.0) g/dL Microbiology - Last 24 Hours (Table) 06/26/18 11:08 Urine Culture - Final Urine,Voided Escherichia coli
--- NOTE | 2018-06-29 12:05 | P.DS ---
Providers Date of admission: 06/28/18 17:14 Expected date of discharge: 06/29/18 Attending physician: Chris Turner Consults: 06/26/18 17:33 Consult Physician Stat Consulting Provider: Allegra Staples Consult Reason/Comments: oncology follow up Do you want consulting provider notified?: Yes Primary care physician: Chris Turner [facility] Course: 82-year-old female with a past medical history significant for diabetes, DVT, hyperlipidemia, hypertension, right breast cancer with metastasis to spine and right mastectomy, who presented to the emergency room due to altered mental status. Family is at the bedside and reports patient has been very confused, which is not her baseline. Patient also is very weak and has been unable to ambulate as she normally does. Family also reports decreased oral intake. Chest x-ray completed in the emergency room was negative for an acute process. Linear subsegmental changes involving the lung bases for which atelectasis or pneumonia. Diffuse osseous metastasis. CT of the brain reveals age related atrophic and chronic small vessel ischemic changes without acute intracranial process. Laboratory data upon admission reveals white count 11.0. Hemoglobin 13.6. Platelet count 195. Sodium 137. Potassium 4.8. BUN 26. Creatinine 1.68. Troponin 0.034. Urine analysis reveals turbid yellow urine, 2+ proteinuria, small blood, large leukocyte esterase, RBC 7, WBC greater than 182. Toxicology screen was negative. Lactic acid 1.6. The patient was admitted to the hospital under the care of Dr. Turner. Consultations were placed to oncology. 06/28/18 Patient examined at the bedside. She is awake and alert. Her mentation is back to her baseline. She had a couple episodes of nausea yesterday which has resolved. Blood sugar this morning was low at 67. Repeat 72. Vital signs are stable. Remains bradycardic. Beta perfecto is on hold. Urine culture is positive for ecoli. PT/OT has been consulted to evaluate patient. Due to her weakness, she will likely require DRE at discharge. 06/29/2018 Patient examined at the bedside. Patients mentation continues to improve. Denies chest pain. Denies shortness of breath. Denies nausea or vomiting. Tolerating oral intake. She remains bradycardic. Beta blockers remain on hold. She is hemodynamically stable. PT worked with patient yesterday who recommended DRE. Patient agreeable to DRE. She is stable for discharge today pending insurance authorization. Beta perfecto will remain on hold at discharge due to bradycardia. May be restarted outpatient if bradycardia improves. Discharge Diagnosis: Urinary tract infection, present on admission, urine culture positive for E. coli Metabolic encephalopathy secondary to UTI, resolved Leukocytosis Diabetes mellitus, type II Hypertension Hyperlipidemia History of atrial flutter Right breast cancer with metastasis to spine and right mastectomy Chronic kidney disease, stage IV Nurse practitioner note has been reviewed by physician. Signing provider agrees with the documented findings, assessment, and plan of care. Patient Condition at Discharge: Stable Plan - Discharge Summary Discharge Rx Participant: Yes New Discharge Prescriptions: New Cefuroxime [Ceftin] 250 mg PO BID #10 tablet Insulin Detemir [Levemir] 30 unit SQ HS syr Continue Anastrozole [Arimidex] 1 mg PO DAILY Furosemide [Lasix] 40 mg PO DAILY Aspirin [Adult Low Dose Aspirin EC] 81 mg PO DAILY Potassium Chloride ER [K-Dur 10] 10 meq PO DAILY Cyanocobalamin (Vitamin B-12) [Vitamin B12] 2,500 mcg PO DAILY Ascorbic Acid [Vitamin C] 500 mg PO DAILY Apixaban [Eliquis] 2.5 mg PO BID Discontinued Metoprolol Tartrate [Lopressor] 25 mg PO BID tab Discharge Medication List Anastrozole [Arimidex] 1 mg PO DAILY 05/14/15 [History] Aspirin [Adult Low Dose Aspirin EC] 81 mg PO DAILY 10/06/17 [History] Furosemide [Lasix] 40 mg PO DAILY 10/06/17 [History] Apixaban [Eliquis] 2.5 mg PO BID 06/26/18 [History] Ascorbic Acid [Vitamin C] 500 mg PO DAILY 06/26/18 [History] Cyanocobalamin (Vitamin B-12) [Vitamin B12] 2,500 mcg PO DAILY 06/26/18 [History ] Potassium Chloride ER [K-Dur 10] 10 meq PO DAILY 06/26/18 [History] Cefuroxime [Ceftin] 250 mg PO BID #10 tablet 06/29/18 [Rx] Insulin Detemir [Levemir] 30 unit SQ HS syr 06/29/18 [Rx] Follow up Appointment(s)/Referral(s): Chris Turner DO [Primary Care Provider] - 1 Week Allegra Staples MD [STAFF PHYSICIAN] - 07/03/18 4:15 pm Activity/Diet/Wound Care/Special Instructions: Activity as tolerated Consistent carbohydrate diet. Dysphagia level 3: chopped Discharge Disposition: TRANSFER TO SNF/ECF
[2018-06-29 12:21] LABS: Glucose,Whole Blood 207 mg/dL (75-99)
[2018-06-29] MEDS: NAPROXEN 250 MG TAB PO SCH (12:41)
[2018-06-29 14:45] VITALS: BP 104/60; PULSE 46; TEMP 98.1
== END 2018-06-29 15:22 | DRG 689 ==
LOC: EC 10:55 → 4MS4W 14:20 → OBSVTOIN 06-28 17:14
PROVIDERS: ADMIT Family Medicine; ATTEND Family Medicine
PROC: 05HF33Z Insertion of Infusion Device into Left Cephalic Vein, Percutaneous Approach (ICD-10-PCS; principal; 2018-06-28 14:00)
PROC: 3E03329 Introduction of Other Anti-infective into Peripheral Vein, Percutaneous Approach (ICD-10-PCS; principal; 2018-06-28 14:00)
PROC: B54NZZA Ultrasonography of Left Upper Extremity Veins, Guidance (ICD-10-PCS; principal; 2018-06-28 14:00)
DX: N39.0 Urinary tract infection, site not specified (principal); G93.41 Metabolic encephalopathy; C79.51 Secondary malignant neoplasm of bone; I48.92 Unspecified atrial flutter; N18.4 Chronic kidney disease, stage 4 (severe); B96.20 Unspecified Escherichia coli [E. coli] as the cause of diseases classified elsewhere; E11.22 Type 2 diabetes mellitus with diabetic chronic kidney disease; E78.5 Hyperlipidemia, unspecified; E86.0 Dehydration; I12.9 Hypertensive chronic kidney disease with stage 1 through stage 4 chronic kidney disease, or unspecified chronic kidney disease; Z79.01 Long term (current) use of anticoagulants; Z79.811 Long term (current) use of aromatase inhibitors; Z79.82 Long term (current) use of aspirin; Z79.899 Other long term (current) drug therapy; Z82.49 Family history of ischemic heart disease and other diseases of the circulatory system; Z83.3 Family history of diabetes mellitus; Z85.3 Personal history of malignant neoplasm of breast; Z85.830 Personal history of malignant neoplasm of bone; Z87.442 Personal history of urinary calculi; Z90.11 Acquired absence of right breast and nipple; Z91.81 History of falling; Z92.3 Personal history of irradiation; Z90.49 Acquired absence of other specified parts of digestive tract; Z98.42 Cataract extraction status, left eye; Z98.41 Cataract extraction status, right eye; Z88.5 Allergy status to narcotic agent
CPT/HCPCS: 36415; 36569; 51702; 70450; 71046; 80053; 80306; 81001; 82140; 82150; 82550; 82553; 83036; 83605; 83690; 84484; 85025; 85610; 85730; 87077; 87086; 87186; 93005; 96361; 96365; 99285

== ENCOUNTER 2018-07-18 09:28 | Inpatient (IN) | payer MEDICARE ==
--- NOTE | 2018-07-18 09:40 | ED ---
SOB HPI - General Stated Complaint: SOB Time Seen by Provider: 07/18/18 09:32 Source: RN notes reviewed, old records reviewed - History of Present Illness Initial Comments: This is a 83-year-old female the ER for evaluation shortness of breath. Patient currently with shortness of breath , patient presented for evaluation of shortness of breath by EMS. Shortness of breath and lower extremity edema. Extremity edema is increasing. Patient has kidney disease. History of a flutter no history of heart disease mild history of heart failure. Patient originally prior to arrival which did help with symptoms. Denies recent fever cough or congestion. Currently denying any pain, patient is on blood thinners Complaint: shortness of breath -: hour(s), days(s) (2) Radiation: other (No pain) Severity: moderate (Improved with oxygenation on oxygen) Consistency: constant Improves With: oxygen, rest, upright position Worsens With: exertion, movement Known History Of: congestive heart failure Context: recent URI Associated Symptoms: lower extremity pain (Lower extremity edema) - Related Data Home Medications Medication Instructions Recorded Confirmed Anastrozole [Arimidex] 1 mg PO DAILY@0800 05/14/15 07/18/18 Aspirin [Adult Low Dose Aspirin EC] 81 mg PO DAILY@1700 10/06/17 07/18/18 Furosemide [Lasix] 40 mg PO DAILY@0800 10/06/17 07/18/18 Apixaban [Eliquis] 2.5 mg PO BID@0800,1700 06/26/18 07/18/18 Ascorbic Acid [Vitamin C] 500 mg PO DAILY@1700 06/26/18 07/18/18 Cyanocobalamin (Vitamin B-12) 2,500 mcg PO DAILY@1700 06/26/18 07/18/18 [Vitamin B12] Acetaminophen Tab [Tylenol Tab] 650 mg PO Q4H PRN 07/18/18 07/18/18 Bisacodyl [Dulcolax] 10 mg RECTAL DAILY PRN 07/18/18 07/18/18 Glucerna Shake 1 can PO DAILY@2100 07/18/18 07/18/18 Insulin Aspart [NovoLOG 9 unit SQ AC-TID 07/18/18 07/18/18 (formulary)] Insulin Detemir [Levemir] 38 unit SQ HS@2130 07/18/18 07/18/18 Magnesium Hydroxide [Milk of 2,400 mg PO DAILY PRN 07/18/18 07/18/18 Magnesia] Na Phos,M-B/Na Phos,Di-Ba [Fleet 133 ml RECTAL DAILY PRN 07/18/18 07/18/18 Adult] amLODIPine [Norvasc] 5 mg PO BID@0800,1700 07/18/18 07/18/18 Allergies Allergy/AdvReac Type Severity Reaction Status Date / Time codeine Allergy Abdominal Verified 07/18/18 09:35 Pain Review of Systems ROS Statement: Those systems with pertinent positive or pertinent negative responses have been documented in the HPI. ROS Other: All systems not noted in ROS Statement are negative. Past Medical History Past Medical History: Atrial Flutter, Cancer, Diabetes Mellitus, Deep Vein Thrombosis (DVT), Eye Disorder, Hyperlipidemia, Hypertension, Memory Impairment , Renal Disease Additional Past Medical History / Comment(s): hx. 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 2016 fall/rhabomyolosis/ akf. family stated pt has kidney disease but refused to seek tx per specilaist" History of Any Multi-Drug Resistant Organisms: None Reported Past Surgical History: Breast Surgery, Cholecystectomy, Heart Catheterization, Tubal Ligation Additional Past Surgical History / Comment(s): right mastectomy, cataracts removed, excision of lesion rt cheek, steroid inj in past for heel spur, lithotripsy Past Anesthesia/Blood Transfusion Reactions: No Reported Reaction Smoking Status: Never smoker - Past Family History Mother Family Medical History: Diabetes Mellitus Father Family Medical History: Congestive Heart Failure (CHF) General Exam General appearance: alert, anxious, in distress, obese Head exam: Present: atraumatic, normocephalic, normal inspection Eye exam: Present: normal appearance, PERRL, EOMI. Absent: scleral icterus, conjunctival injection, periorbital swelling ENT exam: Present: normal exam, mucous membranes moist Neck exam: Present: normal inspection. Absent: tenderness, meningismus, lymphadenopathy Respiratory exam: Present: respiratory distress, wheezes, accessory muscle use, decreased breath sounds. Absent: rales, rhonchi, stridor Cardiovascular Exam: Present: normal rhythm, bradycardia, normal heart sounds. Absent: systolic murmur, diastolic murmur, rubs, gallop, clicks GI/Abdominal exam: Present: soft, normal bowel sounds. Absent: distended, tenderness, guarding, rebound, rigid Extremities exam: Present: normal inspection, full ROM, normal capillary refill. Absent: tenderness, pedal edema, joint swelling, calf tenderness Back exam: Present: normal inspection Neurological exam: Present: alert, oriented X3, CN II-XII intact Psychiatric exam: Present: normal affect, normal mood Skin exam: Present: warm, dry, intact, normal color. Absent: rash Course Vital Signs 07/18/18 07/18/18 09:31 10:18 Temperature 98.1 F Pulse Rate 52 L Respiratory 25 H 25 H Rate Blood Pressure 120/69 O2 Sat by Pulse 94 L Oximetry Medical Decision Making - Medical Decision Making 83 female the ER for altered mental status and weakness. Shortness of breath. Patient having pleural effusions lower extremity edema and bradycardia. We'll admit for cardiology evaluation - Lab Data Result diagrams: 07/18/18 09:50 07/18/18 09:50 Lab Results 07/18/18 07/18/18 07/18/18 Range/Units 09:50 09:50 09:50 WBC 8.8 (3.8-10.6) k/uL RBC 4.22 (3.80-5.40) m/uL Hgb 10.5 L (11.4-16.0) gm/dL Hct 34.6 (34.0-46.0) % MCV 82.0 (80.0-100.0) fL MCH 24.8 L (25.0-35.0) pg MCHC 30.3 L (31.0-37.0) g/dL RDW 15.5 (11.5-15.5) % Plt Count 273 (150-450) k/uL Neutrophils % 70 % Lymphocytes % 17 % Monocytes % 9 % Eosinophils % 2 % Basophils % 0 % Neutrophils # 6.2 (1.3-7.7) k/uL Lymphocytes # 1.5 (1.0-4.8) k/uL Monocytes # 0.8 (0-1.0) k/uL Eosinophils # 0.2 (0-0.7) k/uL Basophils # 0.0 (0-0.2) k/uL Hypochromasia Marked Poikilocytosis (manual Present Sodium 140 (137-145) mmol/L Potassium 4.8 (3.5-5.1) mmol/L Chloride 107 (98-107) mmol/L Carbon Dioxide 24 (22-30) mmol/L Anion Gap 9 mmol/L BUN 31 H (7-17) mg/dL Creatinine 1.53 H (0.52-1.04) mg/dL Est GFR (CKD-EPI)AfAm 37 (>60 ml/min/1.73 sqM) Est GFR (CKD-EPI)NonAf 32 (>60 ml/min/1.73 sqM) Glucose 176 H (74-99) mg/dL Calcium 10.2 (8.4-10.2) mg/dL Magnesium 2.1 (1.6-2.3) mg/dL Total Bilirubin 0.8 (0.2-1.3) mg/dL AST 30 (14-36) U/L ALT 42 (9-52) U/L Alkaline Phosphatase 89 (38-126) U/L Total Creatine Kinase 41 (30-135) U/L CK-MB (CK-2) 1.3 (0.0-2.4) ng/mL CK-MB (CK-2) Rel Index 3.2 Troponin I 0.034 (0.000-0.034) ng/mL NT-Pro-B Natriuret Pep pg/mL Total Protein 6.9 (6.3-8.2) g/dL Albumin 3.6 (3.5-5.0) g/dL 07/18/18 Range/Units 09:50 WBC (3.8-10.6) k/uL RBC (3.80-5.40) m/uL Hgb (11.4-16.0) gm/dL Hct (34.0-46.0) % MCV (80.0-100.0) fL MCH (25.0-35.0) pg MCHC (31.0-37.0) g/dL RDW (11.5-15.5) % Plt Count (150-450) k/uL Neutrophils % % Lymphocytes % % Monocytes % % Eosinophils % % Basophils % % Neutrophils # (1.3-7.7) k/uL Lymphocytes # (1.0-4.8) k/uL Monocytes # (0-1.0) k/uL Eosinophils # (0-0.7) k/uL Basophils # (0-0.2) k/uL Hypochromasia Poikilocytosis (manual Sodium (137-145) mmol/L Potassium (3.5-5.1) mmol/L Chloride (98-107) mmol/L Carbon Dioxide (22-30) mmol/L Anion Gap mmol/L BUN (7-17) mg/dL Creatinine (0.52-1.04) mg/dL Est GFR (CKD-EPI)AfAm (>60 ml/min/1.73 sqM) Est GFR (CKD-EPI)NonAf (>60 ml/min/1.73 sqM) Glucose (74-99) mg/dL Calcium (8.4-10.2) mg/dL Magnesium (1.6-2.3) mg/dL Total Bilirubin (0.2-1.3) mg/dL AST (14-36) U/L ALT (9-52) U/L Alkaline Phosphatase (38-126) U/L Total Creatine Kinase (30-135) U/L CK-MB (CK-2) (0.0-2.4) ng/mL CK-MB (CK-2) Rel Index Troponin I (0.000-0.034) ng/mL NT-Pro-B Natriuret Pep 5240 pg/mL Total Protein (6.3-8.2) g/dL Albumin (3.5-5.0) g/dL - EKG Data -: EKG Interpreted by Me (EKG shows undetermined rhythm of 50, QRS 120, QTC 424) - Radiology Data Radiology results: report reviewed (Chest x-ray), image reviewed Critical Care Time Critical Care Time: Yes Total Critical Care Time: 31 Disposition Clinical Impression: Congestive heart failure, Altered mental status, Weakness, Bradycardia, Hypoxia , Community acquired pneumonia Disposition: ADMITTED IP TO THIS HOSP Condition: Fair Is patient prescribed a controlled substance at d/c from ED?: No
[2018-07-18 10:25] LABS: Basophils % (A) 0 %; Eosinophils # (A) 0.2 k/uL (0-0.7); Eosinophils % (A) 2 %; HCT 34.6 % (34.0-46.0); HGB 10.5 gm/dL (11.4-16.0); Hypochromasia Marked; Lymphocytes # (A) 1.5 k/uL (1.0-4.8); Lymphocytes % (A) 17 %; MCH 24.8 pg (25.0-35.0); MCHC 30.3 g/dL (31.0-37.0); Mean Platelet Volume 7.9; Monocytes # (A) 0.8 k/uL (0-1.0); Monocytes % (A) 9 %; Neutrophils # (A) 6.2 k/uL (1.3-7.7); Neutrophils % (A) 70 %; Platelet Count 273 k/uL (150-450); RBC 4.22 m/uL (3.80-5.40); RDW 15.5 % (11.5-15.5); WBC 8.8 k/uL (3.8-10.6)
[2018-07-18 10:26] LABS: Albumin 3.6 g/dL (3.5-5.0); Calcium 10.2 mg/dL (8.4-10.2); Magnesium 2.1 mg/dL (1.6-2.3); Potassium 4.8 mmol/L (3.5-5.1); Total Bilirubin 0.8 mg/dL (0.2-1.3); Total Protein 6.9 g/dL (6.3-8.2)
[2018-07-18] MEDS ORDERED: IPRATROPIUM-ALBUTEROL 3 ML NEB INHALATION STA (10:31)
[2018-07-18] MEDS ORDERED: IPRATROPIUM-ALBUTEROL 3 ML NEB INHALATION PRN (10:31)
[2018-07-18 10:35] LABS: Prothrombin Time 10.8 sec (9.0-12.0)
--- NOTE | 2018-07-18 10:41 | XR ---
EXAMINATION TYPE: XR chest 2V DATE OF EXAM: 07/18/2018 COMPARISON: Prior chest x-ray 06/26/2018 HISTORY: Difficulty in breathing, cough TECHNIQUE: Frontal and lateral views of the chest are obtained. FINDINGS: There is been interval development of increased attenuation at the right lung base. No paty dent pneumothorax. Heart may be enlarged. Sclerotic focus involving the proximal left humerus is less well seen, sclerotic foci noted in the vertebral bodies and ribs compatible with metastatic disease. Patient is rotated. Central vascularity appears somewhat prominent, question increase in the interst itium. Prominent lung volumes may be indicative of underlying COPD. Aorta is dense. IMPRESSION: There may be right lower lobe pneumonia and associated effusion. Bony metastatic disease . Correlate to exclude pulmonary venous hypertension and interstitial edema.
[2018-07-18 10:46] LABS: Poikilocytosis (M) Present
[2018-07-18 11:01] LABS: Creatine Kinase MB 1.3 ng/mL (0.0-2.4); Troponin I 0.034 ng/mL (0.000-0.034)
[2018-07-18] MEDS ORDERED: PIPERACILLIN-TAZOBACTAM 3.375 GM in SODIUM CHLORIDE 0.9% 100 ML IVPB STA (11:03)
[2018-07-18] MEDS ORDERED: LEVOFLOXACIN 750MG-D5W PMX 750 MG in DEXTROSE/WATER 1 150ML.BAG IVPB STA (11:03)
[2018-07-18] MEDS: FUROSEMIDE 10 MG/ML 4 ML VIAL IV SCH ×2 (11:21→21:13)
[2018-07-18 12:55] LABS: Glucose,Whole Blood 180 mg/dL (75-99)
[2018-07-18 15:28] LABS: Glucose,Whole Blood 175 mg/dL (75-99)
[2018-07-18 17:42] LABS: Glucose,Whole Blood 177 mg/dL (75-99)
[2018-07-18] MEDS ORDERED: BISACODYL 10 MG SUPP RECTAL PRN (17:56)
[2018-07-18] MEDS ORDERED: NA PHOS,M-B/NA PHOS,DI-BA 133 ML ENEMA RECTAL PRN (17:56)
[2018-07-18] MEDS ORDERED: MAGNESIUM HYDROXIDE 2,400 MG/10 ML CUP PO PRN (17:56)
--- NOTE | 2018-07-18 18:03 | P.HPIM ---
History of Present Illness This is a pleasant 83 years old female with past medical history of diabetes mellitus, DVT, hyperlipidemia, hypertension, memory impairment, atrial fibrillation, right breast cancer in 2013 with metastasis to the spine status post radiotherapy. Patient follow-up with Dr. Peck. History of fall and rhabdomyolysis and acute kidney injury. Chronic kidney disease stage III. Presents because of dyspnea. pt herself is poor historian , information is taken with the help of family at bed side after pt gave approval for that. Patient apparently presents because of dyspnea of 1-2 days duration. [facility], recently discharged from [facility] for metabolic encephalopathy and UTI. Patient was supposed to be discharged from rehab to home tomorrow however over the last 1 or 2 days patient was noticed to have increasing swelling of his abdominal and both legs, associated with dyspnea or phlegm. No chest pain. In the emergency room patient has chest x-ray : right lower lobe pneumonia with pleural effusion. And metastatic disease to the bone. His CBC showing WBC of 8.8. Hemoglobin 10.5. Her BMP was unremarkable except for with creatinine 1.5 which is at his baseline, baseline creatinine is 1.2 to 1.8. Patient was started on Levaquin and Zosyn and Lasix 40 mg twice a day Patient suspected to have fluid overload and heart failure, patient does not have history of heart failure. We'll order echo Review of Systems CONSTITUTIONAL: No fever, no malaise, no fatigue. HEENT: No recent visual problems or hearing problems. Denied any sore throat. CARDIOVASCULAR: No orthopnea, PND, no palpitations, no syncope. PULMONARY: No shortness of breath, no cough, no hemoptysis. GASTROINTESTINAL: No diarrhea, no nausea, no vomiting, no abdominal pain. Normoactive bowel sounds. NEUROLOGICAL: No headaches, no weakness, no numbness. HEMATOLOGICAL: Denies any bleeding or petechiae. GENITOURINARY: Denies any burning micturition, frequency, or urgency. MUSCULOSKELETAL/RHEUMATOLOGICAL: Denies any joint pain, swelling, or any muscle pain. ENDOCRINE: Denies any polyuria or polydipsia. Past Medical History Past Medical History: Atrial Flutter, Cancer, Diabetes Mellitus, Deep Vein Thrombosis (DVT), Eye Disorder, Hyperlipidemia, Hypertension, Memory Impairment , Renal Disease Additional Past Medical History / Comment(s): hx. 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 2016 fall/rhabomyolosis/ akf. family stated pt has kidney disease but refused to seek tx per specilaist" History of Any Multi-Drug Resistant Organisms: None Reported Past Surgical History: Breast Surgery, Cholecystectomy, Heart Catheterization, Tubal Ligation Additional Past Surgical History / Comment(s): right mastectomy, cataracts removed, excision of lesion rt cheek, steroid inj in past for heel spur, lithotripsy Past Anesthesia/Blood Transfusion Reactions: No Reported Reaction Smoking Status: Never smoker - Past Family History Mother Family Medical History: Diabetes Mellitus Father Family Medical History: Congestive Heart Failure (CHF) Medications and Allergies Home Medications Medication Instructions Recorded Confirmed Type RX: Anastrozole [Arimidex] 1 mg PO DAILY@0800 05/14/15 07/18/18 History RX: Aspirin [Adult Low Dose 81 mg PO DAILY@1700 10/06/17 07/18/18 History Aspirin EC] RX: Furosemide [Lasix] 40 mg PO DAILY@0800 10/06/17 07/18/18 History RX: Apixaban [Eliquis] 2.5 mg PO BID@0800,1700 06/26/18 07/18/18 History RX: Ascorbic Acid [Vitamin C] 500 mg PO DAILY@1700 06/26/18 07/18/18 History RX: Cyanocobalamin (Vitamin B-12) 2,500 mcg PO DAILY@1700 06/26/18 07/18/18 History [Vitamin B12] Acetaminophen Tab [Tylenol Tab] 650 mg PO Q4H PRN 07/18/18 07/18/18 History Bisacodyl [Dulcolax] 10 mg RECTAL DAILY PRN 07/18/18 07/18/18 History Insulin Aspart [NovoLOG 9 unit SQ AC-TID 07/18/18 07/18/18 History (formulary)] Magnesium Hydroxide [Milk of 2,400 mg PO DAILY PRN 07/18/18 07/18/18 History Magnesia] Na Phos,M-B/Na Phos,Di-Ba [Fleet 133 ml RECTAL DAILY PRN 07/18/18 07/18/18 History Adult] RX: Glucerna Shake 1 can PO DAILY@2100 07/18/18 07/18/18 History RX: Insulin Detemir [Levemir] 38 unit SQ HS@2130 07/18/18 07/18/18 History amLODIPine [Norvasc] 5 mg PO BID@0800,1700 07/18/18 07/18/18 History Allergies Allergy/AdvReac Type Severity Reaction Status Date / Time codeine Allergy Abdominal Verified 07/18/18 09:35 Pain Physical Exam Vitals: Vital Signs Temp Pulse Resp BP Pulse Ox 07/18/18 17:10 49 L 17 92 L 07/18/18 17:00 49 L 19 171/76 92 L 07/18/18 16:50 49 L 23 172/77 92 L 07/18/18 16:40 49 L 18 172/77 92 L 07/18/18 16:30 49 L 22 169/85 93 L 07/18/18 16:20 48 L 22 169/85 93 L 07/18/18 16:10 49 L 17 169/85 90 L 07/18/18 16:01 48 L 20 169/85 93 L 07/18/18 15:50 49 L 25 H 169/85 92 L 07/18/18 15:40 50 L 25 H 169/85 91 L 07/18/18 15:30 50 L 24 157/79 94 L 07/18/18 15:25 23 07/18/18 15:22 97.5 F L 49 L 25 H 95 07/18/18 14:55 98.3 F 07/18/18 14:00 50 L 20 135/68 95 07/18/18 12:47 51 L 20 96 07/18/18 11:47 50 L 20 95 07/18/18 11:35 50 L 07/18/18 11:21 50 L 07/18/18 10:47 52 L 20 144/65 95 07/18/18 10:18 25 H 07/18/18 09:31 98.1 F 52 L 25 H 120/69 94 L Intake and Output 07/18/18 07/18/18 07/18/18 06:59 14:59 22:59 Intake Total 100 Balance 100 Intake: IV 100 Levofloxacin 750Mg-D5w 100 Pmx 750 mg In Dextrose/ Water 1 150ml.bag @ 100 mls/hr IVPB Q48H [facility] Rx#: [id number] Other: Voiding Method Diaper # Voids 0 Weight 104.78 kg 100.4 kg GENERAL: The patient is alert and oriented x3, not in any acute distress. Well developed, well nourished. HEENT: Pupils are round and equally reacting to light. EOMI. No scleral icterus. No conjunctival pallor. Normocephalic, atraumatic. No pharyngeal erythema. No thyromegaly. CARDIOVASCULAR: S1 and S2 present. No murmurs, rubs, or gallops. PULMONARY: Chest is clear to auscultation, no wheezing or crackles. ABDOMEN: Soft, nontender, nondistended, normoactive bowel sounds. No palpable organomegaly. MUSCULOSKELETAL: No joint swelling or deformity. EXTREMITIES: No cyanosis, clubbing, or pedal edema. NEUROLOGICAL: Gross neurological examination did not reveal any focal deficits. SKIN: No rashes. Results CBC & Chem 7: 07/18/18 09:50 07/18/18 09:50 Labs: Abnormal Lab Results - Last 24 Hours (Table) 07/18/18 07/18/18 07/18/18 Range/Units 09:50 09:50 09:50 Hgb 10.5 L (11.4-16.0) gm/dL MCH 24.8 L (25.0-35.0) pg MCHC 30.3 L (31.0-37.0) g/dL APTT 19.0 L (22.0-30.0) sec BUN 31 H (7-17) mg/dL Creatinine 1.53 H (0.52-1.04) mg/dL Glucose 176 H (74-99) mg/dL POC Glucose (mg/dL) (75-99) mg/dL 07/18/18 07/18/18 Range/Units 12:54 15:16 Hgb (11.4-16.0) gm/dL MCH (25.0-35.0) pg MCHC (31.0-37.0) g/dL APTT (22.0-30.0) sec BUN (7-17) mg/dL Creatinine (0.52-1.04) mg/dL Glucose (74-99) mg/dL POC Glucose (mg/dL) 180 H 175 H (75-99) mg/dL Thrombosis Risk Factor Assmnt - Choose All That Apply Any of the Below Risk Factors Present?: Yes Each Factor Represents 1 point: Abnormal pulmonary function (COPD), Heart failure (<1month), Obesity (BMI >25), Swollen legs (current) Each Risk Factor Represents 2 Points: Age 61-74 years Each Risk Factor Represents 3 Points: Age 75 years or older, History of DVT/PE Thrombosis Risk Factor Assessment Total Risk Factor Score: 12 Thrombosis Risk Factor Assessment Level: High Risk Assessment and Plan Assessment: Fluid overload, with pulmonary congestions and leg swelling. Suspicious for acute CHF, new onset. unknown type Right lower lobe pneumonia with pleural effusion. Chronic kidney disease, stage III History of diabetes mellitus History of DVT History of hyperlipidemia Essential hypertension History of chronic atrial fibrillation History of right breast cancer status post radiotherapy. History of recurrent falls Patient is DO NOT RESUSCITATE, confirmed with family at bedside Plan: This is a pleasant 83 years old female who presents because of dyspnea, mostly secondary to pneumonia and pleural effusion, suspected to have fluid overload. She was started on antibiotics with Levaquin , but we will stop Zosyn as patient does not have fever or leukocytosis. Patient was admitted to the ICU but as selective overflow. Cardiology has been consulted for possible contributing heart disease.Labs and medication were reviewed.. Continue same treatment. Continue with symptomatic treatment. Resume home medication. Monitor lytes and vitals. DVT and GI prophylaxis. Further recommendations of the clinical course of the patient DVT prophylaxis: Eliquis GI Prophylaxis: Pepcid PT/OT: Pending Prognosis is guarded
[2018-07-18] MEDS: INSULIN ASPART 100 UNIT/ML 1 ML 10 ML VIAL SQ SCH ×2 (18:26→22:18)
[2018-07-18] MEDS: amLODIPine 5 MG TAB PO SCH (18:26)
[2018-07-18] MEDS: SODIUM CHLORIDE 0.9% 1,000 ML IV SCH (18:26)
[2018-07-18 20:26] LABS: Glucose,Whole Blood 153 mg/dL (75-99)
[2018-07-18] MEDS ORDERED: NON-FORMULARY DRUG (Glucerna Shake 1 CAN) PO SCH (21:00)
[2018-07-18] MEDS: FAMOTIDINE 20 MG TAB PO SCH (21:12)
[2018-07-18 21:20] LABS: Appearance,Urine Clear (Clear); Bacteria,Urine Occasional /hpf; Bilirubin,Urine Negative (Negative); Blood,Urine Negative (Negative); Color,Urine Light Yellow; Glucose,Urine (UA) Negative (Negative); Ketones,Urine Negative (Negative); Leukocyte Esterase,Urine Moderate (Negative); Mucus,Urine Rare /hpf; Nitrite,Urine Negative (Negative); Protein,Urine Negative (Negative); RBC,Urine 1 /hpf (0-5); Specific Gravity,Urine 1.009 (1.001-1.035); Squamous Epithelial Cell,Urine 3 /hpf (0-4); Urobilinogen,Urine <2.0 mg/dL (<2.0); WBC,Urine 6 /hpf (0-5)
[2018-07-18] MEDS: PIPERACILLIN-TAZOBACTAM 3.375 GM in SODIUM CHLORIDE 0.9% 100 ML IVPB SCH (21:20)
[2018-07-18] MEDS: INSULIN DETEMIR 100 UNIT/ML 10 ML VIAL SQ SCH (21:58)
[2018-07-19 03:50] LABS: Hemoglobin A1C 8.8 % (4.0-6.0)
[2018-07-19] MEDS: PIPERACILLIN-TAZOBACTAM 3.375 GM in SODIUM CHLORIDE 0.9% 100 ML IVPB SCH ×2 (04:48→12:26)
[2018-07-19 05:41] LABS: Basophils % (A) 0 %; Eosinophils # (A) 0.2 k/uL (0-0.7); Eosinophils % (A) 3 %; HCT 39.5 % (34.0-46.0); HGB 11.9 gm/dL (11.4-16.0); Hypochromasia Marked; Lymphocytes % (A) 15 %; MCHC 30.1 g/dL (31.0-37.0); Mean Platelet Volume 7.5; Monocytes # (A) 0.5 k/uL (0-1.0); Monocytes % (A) 8 %; Neutrophils # (A) 4.5 k/uL (1.3-7.7); Neutrophils % (A) 71 %; Platelet Count 215 k/uL (150-450); RBC 4.75 m/uL (3.80-5.40); RDW 15.7 % (11.5-15.5); WBC 6.3 k/uL (3.8-10.6)
[2018-07-19 06:04] LABS: Calcium 9.7 mg/dL (8.4-10.2); Potassium 4.3 mmol/L (3.5-5.1)
[2018-07-19 07:12] LABS: Glucose,Whole Blood 138 mg/dL (75-99)
[2018-07-19] MEDS: INSULIN ASPART 100 UNIT/ML 1 ML 10 ML VIAL SQ SCH ×7 (07:43→21:54)
[2018-07-19] MEDS ORDERED: amLODIPine 5 MG TAB PO SCH (08:00)
[2018-07-19] MEDS: APIXABAN 2.5 MG TABLET PO SCH ×2 (08:00→16:43)
[2018-07-19] MEDS: ANASTROZOLE 1 MG TAB PO SCH (08:30)
[2018-07-19] MEDS: amLODIPine 5 MG TAB PO SCH ×2 (08:30→16:43)
[2018-07-19] MEDS: FUROSEMIDE 10 MG/ML 4 ML VIAL IV SCH ×2 (09:26→20:21)
[2018-07-19] MEDS: FAMOTIDINE 20 MG TAB PO SCH (09:26)
--- NOTE | 2018-07-19 09:54 | XR ---
EXAMINATION TYPE: XR chest 1V portable DATE OF EXAM: 07/19/2018 COMPARISON: Prior chest x-ray 07/18/2018 HISTORY: Shortness of breath TECHNIQUE: Single frontal view of the chest is obtained. FINDINGS: The heart remains enlarged. Osseous metastatic disease changes are again noted. No evident pneumothorax. Increased density present at the lung bases. Central vascularity is prominent. Interst itium is mildly increased. There may be some improvement in aeration at the right lung base. Hemidiap hragm is persistently obscured however. IMPRESSION: There may be some improvement in volume status, aeration. Additional follow-up recommend ed.
--- NOTE | 2018-07-19 11:47 | P.CRDCN ---
History of Present Illness History of present illness: This is Dr. Cardozo dictating a consult on this patient The patient was interviewed and examined by me IMPRESSION / ASSESSMENT: Atrial fibrillation with bradycardia, normal potassium, not on any AV teresita blocking drugs History of atrial flutter, on ELIQUIS 2.5 g twice daily History of type 2 diabetes, on insulin History of DVT in the past Essential hypertension History of dyslipidemia History of chronic kidney disease CHF, diastolic acute and chronic, mild, with Preserved LV systolic function, moderate MR and moderate TR by echo in March PLAN: TSH level Continue IV Lasix 40 mg every 12 from a cardiac standpoint HPI Patient presented to the emergency room with increasing shortness of breath no chest discomfort no dizziness as well as bilateral lower extremity edema. Her extremity edema has been increasing. ROS: No fever chills or rigors, Mild cough, phlegm or expectoration, no nausea, vomiting or diarrhea, no hematuria, dysuria, no musculoskeletal complaints, no strokes or seizures, no skin lesions. EXAMINATION Pulse rate in the 40s heart rate in the 40s respirations 20, blood pressure 139/ 66. His mercury Breath sounds are reduced bilaterally with scattered rhonchi Abdomen soft Heart sounds are distant was soft and irregular line bilateral lower extremity edema REVIEW OF LABS, ECG Hemoglobin 11.9, and at lites normal, BUN 27 creatinine 1.47 Twelve-lead ECG shows atrial fibrillation heart rate 51 beats a minute 0.[address] depression inferolaterally, right bundle branch block Past Medical History Past Medical History: Atrial Flutter, Cancer, Diabetes Mellitus, Deep Vein Thrombosis (DVT), Eye Disorder, Hyperlipidemia, Hypertension, Memory Impairment , Renal Disease Additional Past Medical History / Comment(s): hx. 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 2016 fall/rhabomyolosis/ akf. family stated pt has kidney disease but refused to seek tx per specilaist" History of Any Multi-Drug Resistant Organisms: None Reported Past Surgical History: Breast Surgery, Cholecystectomy, Heart Catheterization, Tubal Ligation Additional Past Surgical History / Comment(s): right mastectomy, cataracts removed, excision of lesion rt cheek, steroid inj in past for heel spur, lithotripsy Past Anesthesia/Blood Transfusion Reactions: No Reported Reaction Smoking Status: Never smoker - Past Family History Mother Family Medical History: Diabetes Mellitus Father Family Medical History: Congestive Heart Failure (CHF) Medications and Allergies Home Medications Medication Instructions Recorded Confirmed Type Anastrozole [Arimidex] 1 mg PO DAILY@0800 05/14/15 07/18/18 History Aspirin [Adult Low Dose Aspirin EC] 81 mg PO DAILY@1700 10/06/17 07/18/18 History Furosemide [Lasix] 40 mg PO DAILY@0800 10/06/17 07/18/18 History Apixaban [Eliquis] 2.5 mg PO BID@0800,1700 06/26/18 07/18/18 History Ascorbic Acid [Vitamin C] 500 mg PO DAILY@1700 06/26/18 07/18/18 History Cyanocobalamin (Vitamin B-12) 2,500 mcg PO DAILY@1700 06/26/18 07/18/18 History [Vitamin B12] Acetaminophen Tab [Tylenol Tab] 650 mg PO Q4H PRN 07/18/18 07/18/18 History Bisacodyl [Dulcolax] 10 mg RECTAL DAILY PRN 07/18/18 07/18/18 History Glucerna Shake 1 can PO DAILY@2100 07/18/18 07/18/18 History Insulin Aspart [NovoLOG 9 unit SQ AC-TID 07/18/18 07/18/18 History (formulary)] Insulin Detemir [Levemir] 38 unit SQ HS@21307/18/18 07/18/18 History Magnesium Hydroxide [Milk of 2,400 mg PO DAILY PRN 07/18/18 07/18/18 History Magnesia] Na Phos,M-B/Na Phos,Di-Ba [Fleet 133 ml RECTAL DAILY PRN 07/18/18 07/18/18 History Adult] amLODIPine [Norvasc] 5 mg PO BID@0800,1700 07/18/18 07/18/18 History Allergies Allergy/AdvReac Type Severity Reaction Status Date / Time codeine Allergy Abdominal Verified 07/18/18 09:35 Pain Physical Exam Vitals: Vital Signs Temp Pulse Resp BP Pulse Ox 07/19/18 10:00 45 L 16 139/66 95 07/19/18 09:00 45 L 21 134/58 95 07/19/18 08:00 98.0 F 46 L 20 143/82 94 L 07/19/18 07:00 28 H 156/67 07/19/18 06:00 47 L 24 156/67 94 L 07/19/18 05:00 46 L 14 158/66 93 L 07/19/18 04:00 45 L 14 161/70 93 L 07/19/18 03:00 46 L 15 158/66 92 L 07/19/18 02:00 46 L 20 166/71 94 L 07/19/18 01:00 46 L 17 158/67 93 L 07/19/18 00:00 98 F 47 L 21 173/72 93 L 07/18/18 23:35 47 L 28 H 173/72 07/18/18 23:27 24 07/18/18 23:00 47 L 24 159/70 93 L 07/18/18 22:00 47 L 38 H 179/73 93 L 07/18/18 21:00 97.8 F 52 L 23 171/73 94 L 07/18/18 20:40 26 H 07/18/18 20:00 49 L 27 H 158/72 93 L 07/18/18 19:00 51 L 22 163/70 93 L 07/18/18 18:20 51 L 29 H 169/73 92 L 07/18/18 18:00 51 L 20 172/74 92 L 07/18/18 17:10 49 L 17 92 L 07/18/18 17:00 49 L 19 171/76 92 L 07/18/18 16:50 49 L 23 172/77 92 L 07/18/18 16:40 49 L 18 172/77 92 L 07/18/18 16:30 49 L 22 169/85 93 L 07/18/18 16:20 48 L 22 169/85 93 L 07/18/18 16:10 49 L 17 169/85 90 L 07/18/18 16:01 48 L 20 169/85 93 L 07/18/18 15:50 49 L 25 H 169/85 92 L 07/18/18 15:40 50 L 25 H 169/85 91 L 07/18/18 15:30 50 L 24 157/79 94 L 07/18/18 15:25 23 07/18/18 15:22 97.5 F L 49 L 25 H 95 07/18/18 14:55 98.3 F 07/18/18 14:00 50 L 20 135/68 95 07/18/18 12:47 51 L 20 96 Intake and Output 07/18/18 07/19/18 07/19/18 22:59 06:59 14:59 Intake Total 200 140 320 Output Total 450 700 400 Balance -250 -560 -80 Intake: IV 200 140 80 Levofloxacin 750Mg-D5w 100 Pmx 750 mg In Dextrose/ Water 1 150ml.bag @ 100 mls/hr IVPB Q48H [facility] Rx#: [id number] Sodium Chloride 0.9% 1, 100 140 80 000 ml @ 20 mls/hr IV . Q24H [facility] Rx#:[id number] Oral 240 Output: Urine 450 700 400 Other: Voiding Method Bedside Commode Bedside Commode Bedside Commode # Voids 0 1 # Bowel Movements 1 Weight 100.4 kg 100.9 kg Results 07/19/18 04:34 07/19/18 04:34 CBC 07/19/18 Range/Units 04:34 WBC 6.3 (3.8-10.6) k/uL RBC 4.75 (3.80-5.40) m/uL Hgb 11.9 (11.4-16.0) gm/dL Hct 39.5 (34.0-46.0) % Plt Count 215 (150-450) k/uL Comprehensive Metabolic Panel 07/19/18 Range/Units 04:34 Sodium 139 (137-145) mmol/L Potassium 4.3 (3.5-5.1) mmol/L Chloride 107 (98-107) mmol/L Carbon Dioxide 25 (22-30) mmol/L BUN 27 H (7-17) mg/dL Creatinine 1.47 H (0.52-1.04) mg/dL Glucose 191 H (74-99) mg/dL Calcium 9.7 (8.4-10.2) mg/dL Current Medications Generic Name Dose Route Start Last Admin Trade Name Freq PRN Reason Stop Dose Admin Acetaminophen 650 mg 07/18/18 17:56 Tylenol Tab PO Q4H PRN Pain Albuterol/Ipratropium 3 ml 07/18/18 10:31 Duoneb 0.5 Mg-3 Mg/3 Ml Soln INHALATION RT-QID PRN Shortness Of Breath Or Wheezing Amlodipine Besylate 5 mg 07/18/18 18:07 07/19/18 08:30 Norvasc PO 5 mg BID@0800,1700 [facility] Administration Anastrozole 1 mg 07/19/18 08:00 07/19/18 08:30 Arimidex PO 1 mg DAILY@0800 [facility] Administration Apixaban 2.5 mg 07/19/18 08:00 07/19/18 08:00 Eliquis PO 2.5 mg BID@0800,1700 [facility] Administration Ascorbic Acid 500 mg 07/19/18 17:00 Vitamin C PO DAILY@1700 [facility] Aspirin 81 mg 07/19/18 17:00 Aspirin PO DAILY@1700 [facility] Bisacodyl 10 mg 07/18/18 17:56 Dulcolax RECTAL DAILY PRN Constipation Cyanocobalamin 2,500 mcg 07/19/18 17:00 Vitamin B-12 PO DAILY@1700 [facility] Famotidine 20 mg 07/18/18 21:00 07/19/18 09:26 Pepcid PO 20 mg BID [facility] Administration Furosemide 40 mg 07/18/18 10:45 07/19/18 09:26 Lasix IV 40 mg Q12HR [facility] Administration Levofloxacin 750 mg/ IV 150 mls @ 100 mls/hr 07/20/18 12:00 Solution IVPB Q48H [facility] Piperacillin Sod/Tazobactam 100 mls @ 25 mls/hr 07/18/18 20:00 07/19/18 04:48 Sod 3.375 gm/ Sodium Chloride IVPB 25 mls/hr Q8H [facility] Administration Sodium Chloride 1,000 mls @ 20 mls/hr 07/18/18 18:00 07/18/18 18:26 Saline 0.9% IV 20 mls/hr .Q24H [facility] Administration Insulin Aspart 5 unit 07/19/18 07:30 07/19/18 07:43 Novolog SQ 5 unit AC-TID [facility] Administration Insulin Aspart 0 unit 07/18/18 18:19 07/19/18 07:44 Novolog SQ 1 unit ACHS [facility] Administration Protocol Insulin Detemir 38 unit 07/18/18 21:30 07/18/18 21:58 Levemir SQ 38 unit HS@2130 [facility] Administration Magnesium Hydroxide 2,400 mg 07/18/18 17:56 Milk Of Magnesia PO DAILY PRN Constipation Sodium Biphosphate/Sodium Phosphate 133 ml 07/18/18 17:56 Fleet Adult RECTAL DAILY PRN Constipation Intake and Output 07/18/18 07/19/18 07/19/18 22:59 06:59 14:59 Intake Total 200 140 320 Output Total 450 700 400 Balance -250 -560 -80 Intake: IV 200 140 80 Levofloxacin 750Mg-D5w 100 Pmx 750 mg In Dextrose/ Water 1 150ml.bag @ 100 mls/hr IVPB Q48H [facility] Rx#: [id number] Sodium Chloride 0.9% 1, 100 140 80 000 ml @ 20 mls/hr IV . Q24H [facility] Rx#:[id number] Oral 240 Output: Urine 450 700 400 Other: Voiding Method Bedside Commode Bedside Commode Bedside Commode # Voids 0 1 # Bowel Movements 1 Weight 100.4 kg 100.9 kg 07/19/18 04:34 07/19/18 04:34
[2018-07-19 11:58] LABS: Glucose,Whole Blood 86 mg/dL (75-99)
[2018-07-19] MEDS: ASCORBIC ACID 500 MG TAB PO SCH (16:43)
[2018-07-19] MEDS: CYANOCOBALAMIN 500 MCG TAB PO SCH (16:43)
[2018-07-19] MEDS: ASPIRIN 81 MG PO SCH (16:43)
--- NOTE | 2018-07-19 16:46 | P.PN ---
Subjective This is a pleasant 83 years old female with past medical history of diabetes mellitus, DVT, hyperlipidemia, hypertension, memory impairment, atrial fibrillation, right breast cancer in 2014 with metastasis to the spine status post radiotherapy. Patient follow-up with Dr. Peck. History of fall and rhabdomyolysis and acute kidney injury. Chronic kidney disease stage III. Presents because of dyspnea. pt herself is poor historian , information is taken with the help of family at bed side after pt gave approval for that. Patient apparently presents because of dyspnea of 1-2 days duration. [facility], recently discharged from [facility] for metabolic encephalopathy and UTI. Patient was supposed to be discharged from rehab to home tomorrow however over the last 1 or 2 days patient was noticed to have increasing swelling of his abdominal and both legs, associated with dyspnea or phlegm. No chest pain. In the emergency room patient has chest x-ray : right lower lobe pneumonia with pleural effusion. And metastatic disease to the bone. His CBC showing WBC of 8.8. Hemoglobin 10.5. Her BMP was unremarkable except for with creatinine 1.5 which is at his baseline, baseline creatinine is 1.2 to 1.8. Patient was started on Levaquin and Zosyn and Lasix 40 mg twice a day Patient suspected to have fluid overload and heart failure, patient does not have history of heart failure. We'll order echo 07/19/2018 Patient feels better and she stated that her breathing is improving. She still have bilateral leg swelling. Cardiology input is appreciated, they recommended TSH and Lasix 40 mg twice a day. Patient remains in the ICU for overflow bed. Echo is still pending Objective - Vital Signs Vital signs: Vital Signs Temp 97.8 F 07/19/18 16:00 Pulse 46 L 07/19/18 16:00 Resp 16 07/19/18 16:00 BP 135/65 07/19/18 16:00 Pulse Ox 96 07/19/18 16:00 Intake & Output 07/18/18 07/19/18 07/19/18 18:59 06:59 18:59 Intake Total 120 220 780 Output Total 1150 1950 Balance 120 -930 -1170 Weight 100.4 kg 100.9 kg Intake: IV 120 220 200 Levofloxacin 750Mg-D5w 100 Pmx 750 mg In Dextrose/ Water 1 150ml.bag @ 100 mls/hr IVPB Q48H [facility] Rx#: [id number] Sodium Chloride 0.9% 1, 20 220 200 000 ml @ 20 mls/hr IV . Q24H [facility] Rx#:[id number] Intake, IV Titration 100 Amount Piperacillin-Tazobactam 3 100 .375 gm In Sodium Chloride 0.9% 100 ml @ 25 mls/hr IVPB Q8H [facility] Rx#: [id number] Oral 480 Output: Urine 1150 1950 Other: Voiding Method Diaper Bedside Commode Bedside Commode # Voids 0 1 # Bowel Movements 1 - Exam GENERAL: The patient is alert and oriented x3, not in any acute distress. Well developed, well nourished. HEENT: Pupils are round and equally reacting to light. EOMI. No scleral icterus. No conjunctival pallor. Normocephalic, atraumatic. No pharyngeal erythema. No thyromegaly. CARDIOVASCULAR: S1 and S2 present. No murmurs, rubs, or gallops. -PULMONARY: Chest is clear to auscultation, no wheezing . Bilateral basal crepitation ABDOMEN: Soft, nontender, nondistended, normoactive bowel sounds. No palpable organomegaly. MUSCULOSKELETAL: No joint swelling or deformity. -EXTREMITIES: No cyanosis, clubbing, . Bilateral leg edema NEUROLOGICAL: Gross neurological examination did not reveal any focal deficits. SKIN: No rashes. - Labs CBC & Chem 7: 07/19/18 04:34 07/19/18 04:34 Labs: Abnormal Lab Results - Last 24 Hours (Table) 07/18/18 07/18/18 07/18/18 Range/Units 09:50 17:31 20:15 MCHC (31.0-37.0) g/dL RDW (11.5-15.5) % BUN (7-17) mg/dL Creatinine (0.52-1.04) mg/dL Glucose (74-99) mg/dL POC Glucose (mg/dL) 177 H 153 H (75-99) mg/dL Hemoglobin A1c 8.8 H (4.0-6.0) % Ur Leukocyte Esterase (Negative) Urine WBC (0-5) /hpf Urine Bacteria (None) /hpf Urine Mucus (None) /hpf 07/18/18 07/19/18 07/19/18 Range/Units 21:00 04:34 04:34 MCHC 30.1 L (31.0-37.0) g/dL RDW 15.7 H (11.5-15.5) % BUN 27 H (7-17) mg/dL Creatinine 1.47 H (0.52-1.04) mg/dL Glucose 191 H (74-99) mg/dL POC Glucose (mg/dL) (75-99) mg/dL Hemoglobin A1c (4.0-6.0) % Ur Leukocyte Esterase Moderate H (Negative) Urine WBC 6 H (0-5) /hpf Urine Bacteria Occasional H (None) /hpf Urine Mucus Rare H (None) /hpf 07/19/18 Range/Units 07:01 MCHC (31.0-37.0) g/dL RDW (11.5-15.5) % BUN (7-17) mg/dL Creatinine (0.52-1.04) mg/dL Glucose (74-99) mg/dL POC Glucose (mg/dL) 138 H (75-99) mg/dL Hemoglobin A1c (4.0-6.0) % Ur Leukocyte Esterase (Negative) Urine WBC (0-5) /hpf Urine Bacteria (None) /hpf Urine Mucus (None) /hpf Microbiology - Last 24 Hours (Table) 07/18/18 09:50 Blood Culture - Preliminary Blood No Growth after 24 hours Assessment and Plan Assessment: Fluid overload, with pulmonary congestions and leg swelling. Suspicious for acute CHF, new onset. unknown type Right lower lobe pneumonia with pleural effusion. Chronic kidney disease, stage III History of diabetes mellitus History of DVT History of hyperlipidemia Essential hypertension History of chronic atrial fibrillation History of right breast cancer status post radiotherapy. History of recurrent falls Patient is DO NOT RESUSCITATE, confirmed with family at bedside Plan: This is a pleasant 83 years old female who presents because of dyspnea, mostly secondary to pneumonia and pleural effusion, suspected to have fluid overload. She was started on antibiotics with Levaquin , but we will stop Zosyn as patient does not have fever or leukocytosis. Patient was admitted to the ICU but as selective overflow. Cardiology has been consulted for possible contributing heart disease.Labs and medication were reviewed.. Continue same treatment. Continue with symptomatic treatment. Resume home medication. Monitor lytes and vitals. DVT and GI prophylaxis. Further recommendations of the clinical course of the patient DVT prophylaxis: Eliquis GI Prophylaxis: Pepcid PT/OT: Pending Prognosis is guarded
[2018-07-19 17:35] LABS: Glucose,Whole Blood 177 mg/dL (75-99)
--- NOTE | 2018-07-19 19:49 | ECHOF ---
Referral Reason:Assess LVF MEASUREMENTS -------- HEIGHT: 170.2 cm WEIGHT: 100.7 kg BP: 156/67 RVIDd: 2.7 cm (< 3.3) IVSd: 1.3 cm (0.6 - 1.1) LVIDd: 3.4 cm (3.9 - 5.3) LVPWd: 1.4 cm (0.6 - 1.1) IVSs: 1.9 cm LVIDs: 2.0 cm LVPWs: 1.6 cm LAESV Index (A-L): 35.18 ml/m Ao Diam: 2.9 cm (2.0 - 3.7) AV Cusp: 1.5 cm (1.5 - 2.6) LA Diam: 3.7 cm (2.7 - 3.8) MV EXCURSION: 16.659 mm (> 18.000) MV EF SLOPE: 85 mm/s (70 - 150) EPSS: 0.4 cm MV E Bud: 1.79 m/s MV DecT: 310 ms MV A Bud: 0.80 m/s MV E/A Ratio: 2.23 AV maxP.65 mmHg AV meanP.47 mmHg RAP: 5.00 mmHg RVSP: 34.97 mmHg FINDINGS -------- Undetermined rhythm. This was a technically good study. The left ventricular size is normal. There is mild concentric left ventricular hypertrophy. Overa ll left ventricular systolic function is normal with, an EF between 55 - 60 %. The right ventricle is normal in size and function. LA is moderately dilated 34-39 ml/m2 The right atrium is normal in size. Aortic valve is trileaflet and is mildly thickened. There is mild aortic stenosis present. Peak/m elaina gradient across the Aortic Valve is 18.65mmHg / 9.47mmHg. The mitral valve leaflets are moderately thickened. Moderate mitral annular calcification present. Mild mitral regurgitation is present. The peak and mean MV gradients are 16.74mmHg 4.03mmHg as m easured by doppler. [id number] mitral stenosis. Mild tricuspid regurgitation present. The right ventricular systolic pressure, as measured by Doppl er, is 34.97mmHg. Pulmonic valve appears structurally normal. The aortic root size is normal. Normal inferior vena cava with normal inspiratory collapse consistent with estimated right atrial pre ssure of 5 mmHg. The pericardium is normal. CONCLUSIONS -------- 1. Undetermined rhythm. 2. This was a technically good study. 3. The left ventricular size is normal. 4. There is mild concentric left ventricular hypertrophy. 5. Overall left ventricular systolic function is normal with, an EF between 55 - 60 %. 6. The right ventricle is normal in size and function. 7. LA is moderately dilated 34-39 ml/m2 8. The right atrium is normal in size. 9. Aortic valve is trileaflet and is mildly thickened. 10. There is mild aortic stenosis present. 11. Peak/mean gradient across the Aortic Valve is 18.65mmHg / 9.47mmHg. 12. The mitral valve leaflets are moderately thickened. 13. Moderate mitral annular calcification present. 14. Mild mitral regurgitation is present. 15. The peak and mean MV gradients are 16.74mmHg 4.03mmHg as measured by doppler. 16. [id number] mitral stenosis. 17. Mild tricuspid regurgitation present. 18. The right ventricular systolic pressure, as measured by Doppler, is 34.97mmHg. 19. Pulmonic valve appears structurally normal. 20. The aortic root size is normal. 21. Normal inferior vena cava with normal inspiratory collapse consistent with estimated right atrial pressure of 5 mmHg. 22. The pericardium is normal. L[employer] TRUCK DRIVER: Marilin Lindsey RDCS
[2018-07-19] MEDS: SODIUM CHLORIDE 0.9% 1,000 ML IV SCH (20:21)
[2018-07-19 20:41] LABS: Glucose,Whole Blood 122 mg/dL (75-99)
[2018-07-19] MEDS: INSULIN DETEMIR 100 UNIT/ML 10 ML VIAL SQ SCH (22:11)
[2018-07-20 07:54] LABS: Glucose,Whole Blood 82 mg/dL (75-99)
[2018-07-20] MEDS: INSULIN ASPART 100 UNIT/ML 1 ML 10 ML VIAL SQ SCH ×7 (08:21→21:13)
[2018-07-20] MEDS: APIXABAN 2.5 MG TABLET PO SCH ×2 (08:25→16:39)
[2018-07-20] MEDS: ANASTROZOLE 1 MG TAB PO SCH (08:25)
[2018-07-20] MEDS: FAMOTIDINE 20 MG TAB PO SCH (08:25)
[2018-07-20] MEDS: amLODIPine 5 MG TAB PO SCH ×2 (08:25→16:40)
[2018-07-20] MEDS: FUROSEMIDE 10 MG/ML 4 ML VIAL IV SCH ×2 (08:30→21:04)
--- NOTE | 2018-07-20 11:05 | CDI ---
Documentation Clarification Form Date: July 20, 2018 From: MARTI Baird [employer]worker Admit Date: 07/18/2018 10:31:00 AM Patient Name: Emy Rudolph Visit Number: [id number] ATTENTION: The Clinical Documentation Specialists (CDI) and [facility] Coding Staff appreciate your assistance in clarifying documentation. Please respond to the clarification below the line at the bottom and electronically sign. The CDI & [facility] Coding staff will review the response and follow-up if needed. Please note: Queries are made part of the Legal Health Record. If you have any questions, please contact the author of this message via ITS. Dr. Hirsch Sheet: Conflicting documentation has been found in the medical record. Dr Kulkarni is documenting that the patient has no prior history of CHF and that this is a possible new onset. Cardiology is documenting as acute on chronic CHF. History/Risk Factors: DM, HTN, CKD stage 3, breast cancer with bony mets Clinical Indicators: Cardiology documenting acute on chronic diastolic CHF, past echo in March Echo on 07/19: EF 55-60% with mild left ventricular hypertrophy Home meds show PO Lasix 40 mg Treatment: Cardiology consult, Lasix IVP, Telemetry monitoring In your opinion, what is the most clinically appropriate diagnosis for this patient? Acute (new onset) CHF (please specify type once you have echo results) Acute on Chronic CHF (please specify type once you have echo results) Other explanation of clinical findings Unable to determine (no explanation for clinical findings) (Last Revision: October 2017) mostly pt has acute CHF, probably diastolic , new onset. MTDD
[2018-07-20 11:56] LABS: Glucose,Whole Blood 192 mg/dL (75-99)
[2018-07-20] MEDS ORDERED: LEVOFLOXACIN 750MG-D5W PMX 750 MG in DEXTROSE/WATER 1 150ML.BAG IVPB SCH (12:00)
--- NOTE | 2018-07-20 12:30 | P.PN ---
Subjective Patient is resting comfortably in a chair. Heart rates are 45-50 beats a minute she is in atrial fibrillation No chest discomfort dizziness or lightheadedness She remains on Lasix IV 40 mg every 12h She denies any chest discomfort or shortness of breath at rest but she does complete shortness of breath with exertion prior to coming in On examination her blood pressure is 133/48 mmHg pulse rate is around 45-50 beats a minute afebrile Pulse is irregular rhythm is irregular Breath sounds are reduced bilaterally Heart sounds. Soft but irregular 2-D echo report was reviewed and shows left ventricular ejection fraction of 54- 60%, normal RV size and function Moderate left atrial enlargement Mild aortic stenosis with a peak gradient of about 20 mmHg Mitral stenosis with a peak gradient of 16 mmHg described, thickened mitral leaflets Impression Increasing shortness of breath with preserved LV systolic function mild aortic stenosis and at least moderate mitral stenosis with underlying persistent atrial fibrillation with a slow ventricular response A slow ventricular response is a blessing in the setting of mitral stenosis Normal TSH I would suggest switching to oral Lasix in the next 24-48 hours 40 g twice daily. She takes 40 mg once daily at home and I would double this dose Objective - Vital Signs Vital signs: Vital Signs Temp 97.8 F 07/20/18 12:00 Pulse 50 L 07/20/18 12:00 Resp 28 H 07/20/18 12:00 BP 142/86 07/20/18 12:00 Pulse Ox 92 L 07/20/18 12:00 Intake & Output 07/19/18 07/20/18 07/20/18 18:59 06:59 18:59 Intake Total 820 240 520 Output Total 1950 1200 Balance -1130 -960 520 Weight 100 kg 100 kg Intake: IV 240 240 120 Sodium Chloride 0.9% 1, 240 240 120 000 ml @ 20 mls/hr IV . Q24H [facility] Rx#:[id number] Intake, IV Titration 100 Amount Piperacillin-Tazobactam 3 100 .375 gm In Sodium Chloride 0.9% 100 ml @ 25 mls/hr IVPB Q8H [facility] Rx#: [id number] Oral 480 400 Output: Urine 1950 1200 Other: Voiding Method Bedside Commode Bedside Commode Bedside Commode # Voids 1 1 # Bowel Movements 1 - Labs CBC & Chem 7: 07/19/18 04:34 07/19/18 04:34 Labs: Abnormal Lab Results - Last 24 Hours (Table) 07/19/18 07/19/18 07/20/18 Range/Units 17:24 20:29 11:45 POC Glucose (mg/dL) 177 H 122 H 192 H (75-99) mg/dL Microbiology - Last 24 Hours (Table) 07/18/18 09:50 Blood Culture - Preliminary Blood No Growth after 24 hours
[2018-07-20] MEDS: ASCORBIC ACID 500 MG TAB PO SCH (16:39)
[2018-07-20] MEDS: CYANOCOBALAMIN 500 MCG TAB PO SCH (16:39)
[2018-07-20] MEDS: ASPIRIN 81 MG PO SCH (16:40)
[2018-07-20 16:55] LABS: Glucose,Whole Blood 118 mg/dL (75-99)
--- NOTE | 2018-07-20 18:25 | P.PN ---
Subjective This is a pleasant 83 years old female with past medical history of diabetes mellitus, DVT, hyperlipidemia, hypertension, memory impairment, atrial fibrillation, right breast cancer in 2014 with metastasis to the spine status post radiotherapy. Patient follow-up with Dr. Peck. History of fall and rhabdomyolysis and acute kidney injury. Chronic kidney disease stage III. Presents because of dyspnea. pt herself is poor historian , information is taken with the help of family at bed side after pt gave approval for that. Patient apparently presents because of dyspnea of 1-2 days duration. She was at [facility] rehab, recently discharged from [facility] for metabolic encephalopathy and UTI. Patient was supposed to be discharged from rehab to home tomorrow however over the last 1 or 2 days patient was noticed to have increasing swelling of his abdominal and both legs, associated with dyspnea or phlegm. No chest pain. In the emergency room patient has chest x-ray : right lower lobe pneumonia with pleural effusion. And metastatic disease to the bone. His CBC showing WBC of 8.8. Hemoglobin 10.5. Her BMP was unremarkable except for with creatinine 1.5 which is at his baseline, baseline creatinine is 1.2 to 1.8. Patient was started on Levaquin and Zosyn and Lasix 40 mg twice a day Patient suspected to have fluid overload and heart failure, patient does not have history of heart failure. We'll order echo 07/19/2018 Patient feels better and she stated that her breathing is improving. She still have bilateral leg swelling. Cardiology input is appreciated, they recommended TSH and Lasix 40 mg twice a day. Patient remains in the ICU for overflow bed. Echo is still pending 07/12/2018 Patient looks his stable compared to yesterday she is in the ICU for overflow bed. Bilateral leg swelling slightly improving. She last about 1 kg from her weight. Patient remains on diuresis. Cardiology follow-up is appreciated and they recommended to switch to oral Lasix in the next 24-48 hours as 40 mg twice daily, compared to once daily at home. Objective - Vital Signs Vital signs: Vital Signs Temp 98.4 F 07/20/18 14:00 Pulse 52 L 07/20/18 18:00 Resp 19 07/20/18 16:50 BP 138/76 07/20/18 14:00 Pulse Ox 95 07/20/18 18:00 Intake & Output 07/19/18 07/20/18 07/20/18 18:59 06:59 18:59 Intake Total 820 240 980 Output Total 1950 1200 Balance -1130 -960 980 Weight 100 kg 100 kg Intake: IV 240 240 330 Levofloxacin 750Mg-D5w 150 Pmx 750 mg In Dextrose/ Water 1 150ml.bag @ 100 mls/hr IVPB Q48H [place] Rx#: [id number] Sodium Chloride 0.9% 1, 240 240 180 000 ml @ 20 mls/hr IV . Q24H [place] Rx#:[id number] Intake, IV Titration 100 Amount Piperacillin-Tazobactam 3 100 .375 gm In Sodium Chloride 0.9% 100 ml @ 25 mls/hr IVPB Q8H [place] Rx#: [id number] Oral 480 650 Output: Urine 1950 1200 Other: Voiding Method Bedside Commode Bedside Commode Bedside Commode # Voids 1 1 # Bowel Movements 1 - Exam GENERAL: The patient is alert and oriented x3, not in any acute distress. Well developed, well nourished. HEENT: Pupils are round and equally reacting to light. EOMI. No scleral icterus. No conjunctival pallor. Normocephalic, atraumatic. No pharyngeal erythema. No thyromegaly. CARDIOVASCULAR: S1 and S2 present. No murmurs, rubs, or gallops. -PULMONARY: Chest is clear to auscultation, no wheezing . Bilateral basal crepitation ABDOMEN: Soft, nontender, nondistended, normoactive bowel sounds. No palpable organomegaly. MUSCULOSKELETAL: No joint swelling or deformity. -EXTREMITIES: No cyanosis, clubbing, . Bilateral leg edema NEUROLOGICAL: Gross neurological examination did not reveal any focal deficits. SKIN: No rashes. - Labs CBC & Chem 7: 07/19/18 04:34 07/19/18 04:34 Labs: Abnormal Lab Results - Last 24 Hours (Table) 07/19/18 07/20/18 07/20/18 Range/Units 20:29 11:45 16:43 POC Glucose (mg/dL) 122 H 192 H 118 H (75-99) mg/dL Microbiology - Last 24 Hours (Table) 07/18/18 09:50 Blood Culture - Preliminary Blood No Growth after 48 hours Assessment and Plan Assessment: Fluid overload, with pulmonary congestions and leg swelling. Suspicious for acute CHF, new onset. unknown type Right lower lobe pneumonia with pleural effusion. Chronic kidney disease, stage III History of diabetes mellitus History of DVT History of hyperlipidemia Essential hypertension History of chronic atrial fibrillation History of right breast cancer status post radiotherapy. History of recurrent falls Patient is DO NOT RESUSCITATE, confirmed with family at bedside Plan: This is a pleasant 83 years old female who presents because of dyspnea, mostly secondary to pneumonia and pleural effusion, suspected to have fluid overload. She was started on antibiotics with Levaquin , but we will stop Zosyn as patient does not have fever or leukocytosis. Patient was admitted to the ICU but as selective overflow. Cardiology has been consulted for possible contributing heart disease.Labs and medication were reviewed.. Continue same treatment. Continue with symptomatic treatment. Resume home medication. Monitor lytes and vitals. DVT and GI prophylaxis. Further recommendations of the clinical course of the patient DVT prophylaxis: Eliquis GI Prophylaxis: Pepcid PT/OT: Pending Prognosis is guarded
[2018-07-20 20:45] LABS: Glucose,Whole Blood 93 mg/dL (75-99)
[2018-07-20] MEDS: INSULIN DETEMIR 100 UNIT/ML 10 ML VIAL SQ SCH (21:04)
[2018-07-21 05:39] LABS: Calcium 9.6 mg/dL (8.4-10.2); Potassium 4.1 mmol/L (3.5-5.1)
[2018-07-21 07:18] LABS: Glucose,Whole Blood 112 mg/dL (75-99)
[2018-07-21] MEDS: INSULIN ASPART 100 UNIT/ML 1 ML 10 ML VIAL SQ SCH ×7 (07:37→20:48)
[2018-07-21] MEDS: FUROSEMIDE 10 MG/ML 4 ML VIAL IV SCH ×2 (07:48→17:17)
[2018-07-21] MEDS: AMOXIC-POT CLAV 500-125 MG 1 EACH TAB PO SCH ×2 (07:59→20:49)
[2018-07-21] MEDS: ANASTROZOLE 1 MG TAB PO SCH (08:00)
[2018-07-21] MEDS: APIXABAN 2.5 MG TABLET PO SCH ×2 (08:00→17:19)
[2018-07-21] MEDS: FAMOTIDINE 20 MG TAB PO SCH (08:00)
[2018-07-21] MEDS: amLODIPine 5 MG TAB PO SCH ×2 (08:00→17:19)
--- NOTE | 2018-07-21 09:50 | P.PN ---
Subjective This is a pleasant 83 years old female with past medical history of diabetes mellitus, DVT, hyperlipidemia, hypertension, memory impairment, atrial fibrillation, right breast cancer in 2014 with metastasis to the spine status post radiotherapy. Patient follow-up with Dr. Peck. History of fall and rhabdomyolysis and acute kidney injury. Chronic kidney disease stage III. Presents because of dyspnea. pt herself is poor historian , information is taken with the help of family at bed side after pt gave approval for that. Patient apparently presents because of dyspnea of 1-2 days duration. She was at [facility] rehab, recently discharged from [facility] for metabolic encephalopathy and UTI. Patient was supposed to be discharged from rehab to home tomorrow however over the last 1 or 2 days patient was noticed to have increasing swelling of his abdominal and both legs, associated with dyspnea or phlegm. No chest pain. In the emergency room patient has chest x-ray : right lower lobe pneumonia with pleural effusion. And metastatic disease to the bone. His CBC showing WBC of 8.8. Hemoglobin 10.5. Her BMP was unremarkable except for with creatinine 1.5 which is at his baseline, baseline creatinine is 1.2 to 1.8. Patient was started on Levaquin and Zosyn and Lasix 40 mg twice a day Patient suspected to have fluid overload and heart failure, patient does not have history of heart failure. We'll order echo 07/19/2018 Patient feels better and she stated that her breathing is improving. She still have bilateral leg swelling. Cardiology input is appreciated, they recommended TSH and Lasix 40 mg twice a day. Patient remains in the ICU for overflow bed. Echo is still pending 07/20/2018 Patient looks his stable compared to yesterday she is in the ICU for overflow bed. Bilateral leg swelling slightly improving. She last about 1 kg from her weight. Patient remains on diuresis. Cardiology follow-up is appreciated and they recommended to switch to oral Lasix in the next 24-48 hours as 40 mg twice daily, compared to once daily at home. 07/21/2018 Patient feels generally the same, she remains in the ICU for overflow bed. She denies chest pain or dyspnea. Her leg swelling is coming down but it's has wrapped. Her weight today is up from 100 kg to 103 kg. Patient remains on IV Lasix 40 mg twice a day and cartilage team are planning to switch her to oral dose later on. I talked to the patient's accordance the recommendation of the physical therapy she needs subacute rehab and she agrees to it. Patient was not on home oxygen. She saw bradycardic. However his blood pressure is stable. Creatinine stable at 1.4. Sugar controlled. Cardiology are following the patient. She is currently on Augmentin. Objective - Vital Signs Vital signs: Vital Signs Temp 98.2 F 07/21/18 04:00 Pulse 46 L 07/21/18 06:00 Resp 19 07/21/18 06:00 BP 149/71 07/21/18 02:00 Pulse Ox 95 07/21/18 06:00 Intake & Output 07/20/18 07/21/18 07/21/18 18:59 06:59 18:59 Intake Total 980 340 Output Total 0 Balance 980 340 Weight 100 kg 103 kg Intake: IV 330 Levofloxacin 750Mg-D5w 150 Pmx 750 mg In Dextrose/ Water 1 150ml.bag @ 100 mls/hr IVPB Q48H [facility] Rx#: [id number] Sodium Chloride 0.9% 1, 180 000 ml @ 20 mls/hr IV . Q24H [facility] Rx#:[id number] Oral 650 340 Output: Urine 0 Other: Voiding Method Bedside Commode Bedside Commode # Voids 1 1 # Bowel Movements 1 - Exam GENERAL: The patient is alert and oriented x3, not in any acute distress. Well developed, well nourished. HEENT: Pupils are round and equally reacting to light. EOMI. No scleral icterus. No conjunctival pallor. Normocephalic, atraumatic. No pharyngeal erythema. No thyromegaly. CARDIOVASCULAR: S1 and S2 present. No murmurs, rubs, or gallops. -PULMONARY: Chest is clear to auscultation, no wheezing . Bilateral basal crepitation ABDOMEN: Soft, nontender, nondistended, normoactive bowel sounds. No palpable organomegaly. MUSCULOSKELETAL: No joint swelling or deformity. -EXTREMITIES: No cyanosis, clubbing, . Bilateral leg edema NEUROLOGICAL: Gross neurological examination did not reveal any focal deficits. SKIN: No rashes. - Labs CBC & Chem 7: 07/19/18 04:34 07/21/18 04:23 Labs: Abnormal Lab Results - Last 24 Hours (Table) 07/20/18 07/20/18 07/21/18 Range/Units 11:45 16:43 04:23 Chloride 109 H (98-107) mmol/L BUN 22 H (7-17) mg/dL Creatinine 1.43 H (0.52-1.04) mg/dL POC Glucose (mg/dL) 192 H 118 H (75-99) mg/dL 07/21/18 Range/Units 07:06 Chloride (98-107) mmol/L BUN (7-17) mg/dL Creatinine (0.52-1.04) mg/dL POC Glucose (mg/dL) 112 H (75-99) mg/dL Microbiology - Last 24 Hours (Table) 07/18/18 09:50 Blood Culture - Preliminary Blood No Growth after 48 hours Assessment and Plan Assessment: Fluid overload, with pulmonary congestions and leg swelling. Suspicious for acute CHF, new onset. Mostly diastolic, ejection fraction 55-60% with mild LVH Right lower lobe pneumonia with pleural effusion. Patient remains on antibiotic. Chronic kidney disease, stage III History of diabetes mellitus History of DVT History of hyperlipidemia Essential hypertension History of chronic atrial fibrillation History of right breast cancer status post radiotherapy. History of recurrent falls Patient is DO NOT RESUSCITATE, confirmed with family at bedside Plan: This is a pleasant 83 years old female who presents because of dyspnea, mostly secondary to pneumonia and pleural effusion, suspected to have fluid overload. She was started on antibiotics with Levaquin , but we will stop Zosyn as patient does not have fever or leukocytosis. Patient was admitted to the ICU but as selective overflow. Cardiology has been consulted for possible contributing heart disease.Labs and medication were reviewed.. Continue same treatment. Continue with symptomatic treatment. Resume home medication. Monitor lytes and vitals. DVT and GI prophylaxis. Further recommendations of the clinical course of the patient DVT prophylaxis: Eliquis GI Prophylaxis: Pepcid PT/OT: Pending Prognosis is guarded
[2018-07-21 11:54] LABS: Glucose,Whole Blood 164 mg/dL (75-99)
--- NOTE | 2018-07-21 15:08 | P.PN ---
Subjective Patient remains in atrial fibrillation heart rates 40s and 50s today is 51 beats a minute she is resting comfortably breath sounds are reduced on live but there are no rhonchi no crackles she is breathing a lot better today No chest pain dizziness lightheadedness Heart sounds are irregular no murmurs or gallop or rub Abdomen soft nontender Afebrile 97.8F pulse rate 51 beats and blood pressure 128 100 mmHg Impression Hypertension, essential Atrial fibrillation with a slow ventricular response COPD exacerbation GFR reduced Plan Continue ELIQUIS 2.5 mg twice daily Continue amlodipine 5 mg twice daily Continue IV Lasix today Hopefully tomorrow we should be switched to by mouth Lasix 40 mg twice daily Objective - Vital Signs Vital signs: Vital Signs Temp 97.8 F 07/21/18 12:00 Pulse 47 L 07/21/18 12:00 Resp 17 07/21/18 12:00 BP 128/100 07/21/18 12:00 Pulse Ox 92 L 07/21/18 08:00 Intake & Output 07/20/18 07/21/18 07/21/18 18:59 06:59 18:59 Intake Total 980 340 500 Output Total 0 200 Balance 980 340 300 Weight 100 kg 103 kg Intake: IV 330 Levofloxacin 750Mg-D5w 150 Pmx 750 mg In Dextrose/ Water 1 150ml.bag @ 100 mls/hr IVPB Q48H [facility] Rx#: [id number] Sodium Chloride 0.9% 1, 180 000 ml @ 20 mls/hr IV . Q24H [facility] Rx#:[id number] Oral 650 340 500 Output: Urine 0 200 Other: Voiding Method Bedside Commode Bedside Commode Bedside Commode # Voids 1 1 0 # Bowel Movements 1 1 - Labs CBC & Chem 7: 07/19/18 04:34 07/21/18 04:23 Labs: Abnormal Lab Results - Last 24 Hours (Table) 07/20/18 07/21/18 07/21/18 Range/Units 16:43 04:23 07:06 Chloride 109 H (98-107) mmol/L BUN 22 H (7-17) mg/dL Creatinine 1.43 H (0.52-1.04) mg/dL POC Glucose (mg/dL) 118 H 112 H (75-99) mg/dL 07/21/18 Range/Units 11:43 Chloride (98-107) mmol/L BUN (7-17) mg/dL Creatinine (0.52-1.04) mg/dL POC Glucose (mg/dL) 164 H (75-99) mg/dL Microbiology - Last 24 Hours (Table) 07/18/18 09:50 Blood Culture - Preliminary Blood No Growth after 72 hours
[2018-07-21 16:49] LABS: Glucose,Whole Blood 179 mg/dL (75-99)
[2018-07-21] MEDS: CYANOCOBALAMIN 500 MCG TAB PO SCH (17:16)
[2018-07-21] MEDS: ASCORBIC ACID 500 MG TAB PO SCH (17:17)
[2018-07-21] MEDS: ASPIRIN 81 MG PO SCH (17:17)
[2018-07-21 20:21] LABS: Glucose,Whole Blood 184 mg/dL (75-99)
[2018-07-21] MEDS: INSULIN DETEMIR 100 UNIT/ML 10 ML VIAL SQ SCH (20:49)
[2018-07-22 04:55] LABS: Calcium 10.4 mg/dL (8.4-10.2); Potassium 4.3 mmol/L (3.5-5.1)
[2018-07-22 05:15] LABS: Glucose,Whole Blood 56 mg/dL (75-99)
[2018-07-22 05:37] LABS: Glucose,Whole Blood 98 mg/dL (75-99)
[2018-07-22] MEDS: FUROSEMIDE 10 MG/ML 4 ML VIAL IV SCH (06:45)
[2018-07-22 07:12] LABS: Glucose,Whole Blood 125 mg/dL (75-99)
[2018-07-22] MEDS: INSULIN ASPART 100 UNIT/ML 1 ML 10 ML VIAL SQ SCH ×7 (08:15→21:53)
[2018-07-22] MEDS: amLODIPine 5 MG TAB PO SCH ×2 (08:40→17:38)
[2018-07-22] MEDS: APIXABAN 2.5 MG TABLET PO SCH ×2 (08:40→17:37)
[2018-07-22] MEDS: AMOXIC-POT CLAV 500-125 MG 1 EACH TAB PO SCH ×2 (08:40→21:52)
[2018-07-22] MEDS: ANASTROZOLE 1 MG TAB PO SCH (08:40)
[2018-07-22] MEDS: FAMOTIDINE 20 MG TAB PO SCH (08:40)
[2018-07-22 11:45] LABS: Glucose,Whole Blood 172 mg/dL (75-99)
--- NOTE | 2018-07-22 15:49 | P.PN ---
Subjective Patient is sitting comfortably in chair. Heart rates in the 40s she is in atrial fibrillation no dizziness lightheadedness she is breathing a lot more comfortably now than she did when I first saw her in the first few days Blood pressure 120-59 mmHg afebrile 98F heart rate in the 40s Breath sounds reduce bilaterally occasional bibasilar crackles no rhonchi Heart sounds irregular Impression Atrial fibrillation with a slow ventricular response in the 40s without any electrolytes imbalance potassium abnormalities thyroid abnormalities or any AV node blocking drugs or provocation Suggest Reduce Lasix to 40 mg by mouth twice daily orally and transferred to telemetry Objective - Vital Signs Vital signs: Vital Signs Temp 98.0 F 07/22/18 06:00 Pulse 43 L 07/22/18 06:00 Resp 10 L 07/22/18 06:00 BP 128/59 07/22/18 06:00 Pulse Ox 95 07/22/18 06:00 Intake & Output 07/21/18 07/22/18 07/22/18 18:59 06:59 18:59 Intake Total 750 120 450 Output Total 351 0 0 Balance 399 120 450 Weight 103.2 kg Intake: Oral 750 120 450 Output: Urine 351 0 0 Other: Voiding Method Bedside Commode Bedside Commode Bedside Commode # Voids 1 0 1 # Bowel Movements 1 1 - Labs CBC & Chem 7: 07/19/18 04:34 07/22/18 04:10 Labs: Abnormal Lab Results - Last 24 Hours (Table) 07/21/18 07/21/18 07/22/18 Range/Units 16:38 20:08 04:10 Chloride 108 H (98-107) mmol/L BUN 27 H (7-17) mg/dL Creatinine 1.44 H (0.52-1.04) mg/dL Glucose 57 L (74-99) mg/dL POC Glucose (mg/dL) 179 H 184 H (75-99) mg/dL Calcium 10.4 H (8.4-10.2) mg/dL 07/22/18 07/22/18 07/22/18 Range/Units 05:03 07:01 11:33 Chloride (98-107) mmol/L BUN (7-17) mg/dL Creatinine (0.52-1.04) mg/dL Glucose (74-99) mg/dL POC Glucose (mg/dL) 56 L 125 H 172 H (75-99) mg/dL Calcium (8.4-10.2) mg/dL Microbiology - Last 24 Hours (Table) 07/18/18 09:50 Blood Culture - Preliminary Blood No Growth after 96 hours
[2018-07-22 17:20] LABS: Glucose,Whole Blood 205 mg/dL (75-99)
[2018-07-22] MEDS: ASCORBIC ACID 500 MG TAB PO SCH (17:34)
[2018-07-22] MEDS: FUROSEMIDE 40 MG TAB PO SCH (17:34)
[2018-07-22] MEDS: ASPIRIN 81 MG PO SCH (17:35)
[2018-07-22] MEDS: CYANOCOBALAMIN 500 MCG TAB PO SCH (17:35)
[2018-07-22 21:33] LABS: Glucose,Whole Blood 179 mg/dL (75-99)
[2018-07-22] MEDS: INSULIN DETEMIR 100 UNIT/ML 10 ML VIAL SQ SCH (21:53)
[2018-07-23 02:27] LABS: Glucose,Whole Blood 192 mg/dL (75-99)
[2018-07-23 05:02] LABS: Basophils % (A) 0 %; Eosinophils # (A) 0.4 k/uL (0-0.7); Eosinophils % (A) 5 %; HCT 40.5 % (34.0-46.0); HGB 11.9 gm/dL (11.4-16.0); Hypochromasia Marked; Lymphocytes # (A) 1.3 k/uL (1.0-4.8); Lymphocytes % (A) 19 %; MCH 24.2 pg (25.0-35.0); MCHC 29.4 g/dL (31.0-37.0); MCV 82.5 fL (80.0-100.0); Mean Platelet Volume 7.2; Monocytes # (A) 0.5 k/uL (0-1.0); Monocytes % (A) 8 %; Neutrophils # (A) 4.4 k/uL (1.3-7.7); Neutrophils % (A) 64 %; Platelet Count 198 k/uL (150-450); RBC 4.91 m/uL (3.80-5.40); RDW 15.2 % (11.5-15.5); WBC 6.8 k/uL (3.8-10.6)
[2018-07-23 05:30] LABS: Calcium 10.9 mg/dL (8.4-10.2); Potassium 4.7 mmol/L (3.5-5.1)
[2018-07-23 07:10] LABS: Glucose,Whole Blood 125 mg/dL (75-99)
[2018-07-23] MEDS: INSULIN ASPART 100 UNIT/ML 1 ML 10 ML VIAL SQ SCH ×7 (08:22→21:50)
[2018-07-23] MEDS: amLODIPine 5 MG TAB PO SCH ×2 (08:54→16:51)
[2018-07-23] MEDS: FAMOTIDINE 20 MG TAB PO SCH (08:54)
[2018-07-23] MEDS: FUROSEMIDE 40 MG TAB PO SCH ×2 (08:54→16:51)
[2018-07-23] MEDS: AMOXIC-POT CLAV 500-125 MG 1 EACH TAB PO SCH ×2 (08:55→21:51)
[2018-07-23] MEDS: APIXABAN 2.5 MG TABLET PO SCH ×2 (08:55→16:51)
[2018-07-23] MEDS: ANASTROZOLE 1 MG TAB PO SCH (08:55)
--- NOTE | 2018-07-23 09:20 | P.PN ---
Subjective This is a pleasant 83 years old female with past medical history of diabetes mellitus, DVT, hyperlipidemia, hypertension, memory impairment, atrial fibrillation, right breast cancer in 2014 with metastasis to the spine status post radiotherapy. Patient follow-up with Dr. Peck. History of fall and rhabdomyolysis and acute kidney injury. Chronic kidney disease stage III. Presents because of dyspnea. pt herself is poor historian , information is taken with the help of family at bed side after pt gave approval for that. Patient apparently presents because of dyspnea of 1-2 days duration. She was at [facility] rehab, recently discharged from [facility] for metabolic encephalopathy and UTI. Patient was supposed to be discharged from rehab to home tomorrow however over the last 1 or 2 days patient was noticed to have increasing swelling of his abdominal and both legs, associated with dyspnea or phlegm. No chest pain. In the emergency room patient has chest x-ray : right lower lobe pneumonia with pleural effusion. And metastatic disease to the bone. His CBC showing WBC of 8.8. Hemoglobin 10.5. Her BMP was unremarkable except for with creatinine 1.5 which is at his baseline, baseline creatinine is 1.2 to 1.8. Patient was started on Levaquin and Zosyn and Lasix 40 mg twice a day Patient suspected to have fluid overload and heart failure, patient does not have history of heart failure. We'll order echo 07/19/2018 Patient feels better and she stated that her breathing is improving. She still have bilateral leg swelling. Cardiology input is appreciated, they recommended TSH and Lasix 40 mg twice a day. Patient remains in the ICU for overflow bed. Echo is still pending 07/20/2018 Patient looks his stable compared to yesterday she is in the ICU for overflow bed. Bilateral leg swelling slightly improving. She last about 1 kg from her weight. Patient remains on diuresis. Cardiology follow-up is appreciated and they recommended to switch to oral Lasix in the next 24-48 hours as 40 mg twice daily, compared to once daily at home. 07/21/2018 Patient feels generally the same, she remains in the ICU for overflow bed. She denies chest pain or dyspnea. Her leg swelling is coming down but it's has wrapped. Her weight today is up from 100 kg to 103 kg. Patient remains on IV Lasix 40 mg twice a day and cartilage team are planning to switch her to oral dose later on. I talked to the patient's accordance the recommendation of the physical therapy she needs subacute rehab and she agrees to it. Patient was not on home oxygen. She saw bradycardic. However his blood pressure is stable. Creatinine stable at 1.4. Sugar controlled. Cardiology are following the patient. She is currently on Augmentin. date of service : 07/22/2018 pt is seen and examined by me at bed side, she still in icu but as overflow bed , pt with no denies chest pain or dyspnea, as per pt she continue to improve, she has less leg swelling , director of medical review follow up is appreciated and she was switched to oral lasix today, pt has asymptomatic bradycardia and cardiology are following the case , blood pressure is stable, her weight looks stable as well. pt most likely is going to rehab after discharge Objective - Vital Signs Vital signs: Vital Signs Temp 97.5 F L 07/23/18 08:00 Pulse 42 L 07/23/18 08:00 Resp 13 07/23/18 08:00 BP 137/63 07/23/18 08:00 Pulse Ox 95 07/23/18 08:00 Intake & Output 07/22/18 07/23/18 07/23/18 18:59 06:59 18:59 Intake Total 450 240 Output Total 0 400 Balance 450 -160 Weight 103.3 kg Intake: Oral 450 240 Output: Urine 0 400 Other: Voiding Method Bedside Commode Bedside Commode # Voids 1 # Bowel Movements 1 1 - Exam GENERAL: The patient is alert and oriented x3, not in any acute distress. Well developed, well nourished. HEENT: Pupils are round and equally reacting to light. EOMI. No scleral icterus. No conjunctival pallor. Normocephalic, atraumatic. No pharyngeal erythema. No thyromegaly. CARDIOVASCULAR: S1 and S2 present. No murmurs, rubs, or gallops. -PULMONARY: Chest is clear to auscultation, no wheezing . Bilateral basal crepitation ABDOMEN: Soft, nontender, nondistended, normoactive bowel sounds. No palpable organomegaly. MUSCULOSKELETAL: No joint swelling or deformity. -EXTREMITIES: No cyanosis, clubbing, . Bilateral leg edema NEUROLOGICAL: Gross neurological examination did not reveal any focal deficits. SKIN: No rashes. - Labs CBC & Chem 7: 12/31/18 04:30 07/23/18 04:30 Labs: Abnormal Lab Results - Last 24 Hours (Table) 07/22/18 07/22/18 07/22/18 Range/Units 11:33 17:08 21:22 MCH (25.0-35.0) pg MCHC (31.0-37.0) g/dL BUN (7-17) mg/dL Creatinine (0.52-1.04) mg/dL Glucose (74-99) mg/dL POC Glucose (mg/dL) 172 H 205 H 179 H (75-99) mg/dL Calcium (8.4-10.2) mg/dL 07/23/18 07/23/18 07/23/18 Range/Units 02:16 04:30 04:30 MCH 24.2 L (25.0-35.0) pg MCHC 29.4 L (31.0-37.0) g/dL BUN 30 H (7-17) mg/dL Creatinine 1.42 H (0.52-1.04) mg/dL Glucose 167 H (74-99) mg/dL POC Glucose (mg/dL) 192 H (75-99) mg/dL Calcium 10.9 H (8.4-10.2) mg/dL 07/23/18 Range/Units 06:58 MCH (25.0-35.0) pg MCHC (31.0-37.0) g/dL BUN (7-17) mg/dL Creatinine (0.52-1.04) mg/dL Glucose (74-99) mg/dL POC Glucose (mg/dL) 125 H (75-99) mg/dL Calcium (8.4-10.2) mg/dL Microbiology - Last 24 Hours (Table) 07/18/18 09:50 Blood Culture - Preliminary Blood No Growth after 96 hours Assessment and Plan Assessment: Fluid overload, with pulmonary congestions and leg swelling. Suspicious for acute CHF, new onset. Mostly diastolic, ejection fraction 55-60% with mild LVH Right lower lobe pneumonia with pleural effusion. Patient remains on antibiotic. Chronic kidney disease, stage III History of diabetes mellitus History of DVT History of hyperlipidemia Essential hypertension History of chronic atrial fibrillation History of right breast cancer status post radiotherapy. History of recurrent falls Patient is DO NOT RESUSCITATE, confirmed with family at bedside Plan: This is a pleasant 83 years old female who presents because of dyspnea, mostly secondary to pneumonia and pleural effusion, suspected to have fluid overload. She was started on antibiotics with Levaquin , but we will stop Zosyn as patient does not have fever or leukocytosis. Patient was admitted to the ICU but as selective overflow. Cardiology has been consulted for possible contributing heart disease.Labs and medication were reviewed.. Continue same treatment. Continue with symptomatic treatment. Resume home medication. Monitor lytes and vitals. DVT and GI prophylaxis. Further recommendations of the clinical course of the patient DVT prophylaxis: Eliquis GI Prophylaxis: Pepcid PT/OT: Pending Prognosis is guarded
--- NOTE | 2018-07-23 10:44 | P.PN ---
Subjective Patient is resting comfortably in bed. She remains in atrial fibrillation with heart rates in the mid 40s no loss of consciousness no dizziness lightheadedness not on any AV teresita blocking drugs Blood pressure 137/63 minute his mercury respirations 12-14, afebrile Breath sounds are reduced bilaterally but air entry has improved is no obvious rhonchi or crackles Abdomen is soft Heart sounds irregular but normal no murmurs Suggest Continue antihypertensive therapy for essential hypertension, amlodipine total of 10 mg today I would also start losartan 12.5 mg by mouth daily watch potassium Anticoagulation for atrial fibrillation, ELIQUIS 2.5 g twice daily Permanent atrial fibrillation, intrinsically rate controlled/bradycardic Normal TSH normal potassium so far Suggest Continue current medications continue ICU treatment and she should go to telemetry/cardiac floor 3 S. Objective - Vital Signs Vital signs: Vital Signs Temp 97.5 F L 07/23/18 08:00 Pulse 42 L 07/23/18 08:00 Resp 13 07/23/18 08:00 BP 137/63 07/23/18 08:00 Pulse Ox 95 07/23/18 08:00 Intake & Output 07/22/18 07/23/18 07/23/18 18:59 06:59 18:59 Intake Total 450 240 Output Total 0 400 Balance 450 -160 Weight 103.3 kg Intake: Oral 450 240 Output: Urine 0 400 Other: Voiding Method Bedside Commode Bedside Commode Bedside Commode # Voids 1 # Bowel Movements 1 1 - Labs CBC & Chem 7: 07/23/18 04:30 07/23/18 04:30 Labs: Abnormal Lab Results - Last 24 Hours (Table) 07/22/18 07/22/18 07/22/18 Range/Units 11:33 17:08 21:22 MCH (25.0-35.0) pg MCHC (31.0-37.0) g/dL BUN (7-17) mg/dL Creatinine (0.52-1.04) mg/dL Glucose (74-99) mg/dL POC Glucose (mg/dL) 172 H 205 H 179 H (75-99) mg/dL Calcium (8.4-10.2) mg/dL 07/23/18 07/23/18 07/23/18 Range/Units 02:16 04:30 04:30 MCH 24.2 L (25.0-35.0) pg MCHC 29.4 L (31.0-37.0) g/dL BUN 30 H (7-17) mg/dL Creatinine 1.42 H (0.52-1.04) mg/dL Glucose 167 H (74-99) mg/dL POC Glucose (mg/dL) 192 H (75-99) mg/dL Calcium 10.9 H (8.4-10.2) mg/dL 07/23/18 Range/Units 06:58 MCH (25.0-35.0) pg MCHC (31.0-37.0) g/dL BUN (7-17) mg/dL Creatinine (0.52-1.04) mg/dL Glucose (74-99) mg/dL POC Glucose (mg/dL) 125 H (75-99) mg/dL Calcium (8.4-10.2) mg/dL Microbiology - Last 24 Hours (Table) 07/18/18 09:50 Blood Culture - Preliminary Blood No Growth after 96 hours
[2018-07-23 12:00] LABS: Glucose,Whole Blood 172 mg/dL (75-99)
[2018-07-23] MEDS: CYANOCOBALAMIN 500 MCG TAB PO SCH (16:51)
[2018-07-23] MEDS: ASPIRIN 81 MG PO SCH (16:51)
[2018-07-23] MEDS: ASCORBIC ACID 500 MG TAB PO SCH (16:51)
[2018-07-23 16:59] LABS: Glucose,Whole Blood 154 mg/dL (75-99)
[2018-07-23 20:55] LABS: Glucose,Whole Blood 226 mg/dL (75-99)
[2018-07-23] MEDS: ACETAMINOPHEN TAB 325 MG TAB PO PRN (21:51)
[2018-07-23] MEDS: INSULIN DETEMIR 100 UNIT/ML 10 ML VIAL SQ SCH (21:51)
[2018-07-24 04:46] LABS: HCT 38.6 % (34.0-46.0); Hypochromasia Moderate; MCH 25.5 pg (25.0-35.0); MCHC 31.1 g/dL (31.0-37.0); MCV 81.9 fL (80.0-100.0); Mean Platelet Volume 7.6; Platelet Count 188 k/uL (150-450); RBC 4.71 m/uL (3.80-5.40); RDW 15.3 % (11.5-15.5); WBC 7.5 k/uL (3.8-10.6)
[2018-07-24 05:12] LABS: Calcium 11.2 mg/dL (8.4-10.2); Magnesium 2.2 mg/dL (1.6-2.3); Potassium 4.5 mmol/L (3.5-5.1)
[2018-07-24 07:12] LABS: Glucose,Whole Blood 75 mg/dL (75-99)
[2018-07-24] MEDS: INSULIN ASPART 100 UNIT/ML 1 ML 10 ML VIAL SQ SCH ×7 (09:44→22:04)
[2018-07-24] MEDS: APIXABAN 2.5 MG TABLET PO SCH ×2 (09:47→18:00)
[2018-07-24] MEDS: amLODIPine 5 MG TAB PO SCH ×2 (09:47→18:00)
[2018-07-24] MEDS: ANASTROZOLE 1 MG TAB PO SCH (09:48)
[2018-07-24] MEDS: AMOXIC-POT CLAV 500-125 MG 1 EACH TAB PO SCH ×2 (09:48→22:04)
[2018-07-24] MEDS: FAMOTIDINE 20 MG TAB PO SCH (09:48)
[2018-07-24] MEDS: FUROSEMIDE 40 MG TAB PO SCH ×2 (09:48→18:00)
[2018-07-24 12:42] LABS: Glucose,Whole Blood 114 mg/dL (75-99)
--- NOTE | 2018-07-24 15:34 | P.PN ---
Subjective Patient remains bradycardic in the 40s. Short of breath has improved We will try speaking to her family members tomorrow. I did talk to the patient yesterday about a possible permanent pacemaker and not sure if she actually does not want or does not understand what I said or simply deflected the issue Awaiting a bed in telemetry cardiac third-floor [facility] TSH is normal Continue anticoagulation Examination breath sounds are reduced bilaterally with no rhonchi no crackles Heart sounds are irregular but normal Abdomen soft Blood pressure 157/56 mmHg heart rate in the 40s Afebrile Objective - Vital Signs Vital signs: Vital Signs Temp 98 F 07/24/18 12:00 Pulse 41 L 07/24/18 12:00 Resp 16 07/24/18 12:00 BP 157/56 07/24/18 12:00 Pulse Ox 96 07/24/18 12:00 Intake & Output 07/23/18 07/24/18 07/24/18 18:59 06:59 18:59 Intake Total 480 300 Output Total 1100 200 Balance -620 -200 300 Weight 103.8 kg Intake: Oral 480 300 Output: Urine 1100 200 Other: Voiding Method Bedside Commode Bedside Commode Bedside Commode # Voids 0 # Bowel Movements 1 - Labs CBC & Chem 7: 07/24/18 04:30 07/24/18 04:30 Labs: Abnormal Lab Results - Last 24 Hours (Table) 07/23/18 07/23/18 07/24/18 Range/Units 16:57 20:54 04:30 BUN 34 H (7-17) mg/dL Creatinine 1.33 H (0.52-1.04) mg/dL POC Glucose (mg/dL) 154 H 226 H (75-99) mg/dL Calcium 11.2 H (8.4-10.2) mg/dL 07/24/18 Range/Units 12:31 BUN (7-17) mg/dL Creatinine (0.52-1.04) mg/dL POC Glucose (mg/dL) 114 H (75-99) mg/dL Calcium (8.4-10.2) mg/dL Microbiology - Last 24 Hours (Table) 07/18/18 09:50 Blood Culture - Final Blood No Growth after 144 hours
--- NOTE | 2018-07-24 16:02 | P.PN ---
Subjective Progress Note Date: 07/23/18 Progress note being dictated for Dr. Rock. 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 Patient follow-up with Dr. Peck. History of fall and rhabdomyolysis and acute kidney injury. Chronic kidney disease stage III. Presents because of dyspnea. pt herself is poor historian , information is taken with the help of family at bed side after pt gave approval for that. Patient apparently presents because of dyspnea of 1-2 days duration. She was at [facility] rehab, recently discharged from [facility] for metabolic encephalopathy and UTI. Patient was supposed to be discharged from rehab to home tomorrow however over the last 1 or 2 days patient was noticed to have increasing swelling of his abdominal and both legs, associated with dyspnea or phlegm. No chest pain. In the emergency room patient has chest x-ray : right lower lobe pneumonia with pleural effusion. And metastatic disease to the bone. His CBC showing WBC of 8.8. Hemoglobin 10.5. Her BMP was unremarkable except for with creatinine 1.5 which is at his baseline, baseline creatinine is 1.2 to 1.8. Patient was started on Levaquin and Zosyn and Lasix 40 mg twice a day Patient suspected to have fluid overload and heart failure, patient does not have history of heart failure. We'll order echo 07/19/2018 Patient feels better and she stated that her breathing is improving. She still have bilateral leg swelling. Cardiology input is appreciated, they recommended TSH and Lasix 40 mg twice a day. Patient remains in the ICU for overflow bed. Echo is still pending 07/20/2018 Patient looks his stable compared to yesterday she is in the ICU for overflow bed. Bilateral leg swelling slightly improving. She last about 1 kg from her weight. Patient remains on diuresis. Cardiology follow-up is appreciated and they recommended to switch to oral Lasix in the next 24-48 hours as 40 mg twice daily, compared to once daily at home. 07/21/2018 Patient feels generally the same, she remains in the ICU for overflow bed. She denies chest pain or dyspnea. Her leg swelling is coming down but it's has wrapped. Her weight today is up from 100 kg to 103 kg. Patient remains on IV Lasix 40 mg twice a day and cartilage team are planning to switch her to oral dose later on. I talked to the patient's accordance the recommendation of the physical therapy she needs subacute rehab and she agrees to it. Patient was not on home oxygen. She saw bradycardic. However his blood pressure is stable. Creatinine stable at 1.4. Sugar controlled. Cardiology are following the patient. She is currently on Augmentin. 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 pt most likely is going to rehab after discharge. 07/22/18 Selective overflow. Atrial fib- flutter, heart rates currently in the 40s. Breathing continues to improve with decreasing leg edema. Patient recently discharged from our with subacute rehab., and currently refusing rehab. once medically stable for discharge.Creatinine 1.42. Potassium 4.7. Losartan added to med regime as per cardiology.Denies lightheadedness dizziness or focal deficits. Denies chest pain, palpitations or increased shortness of breath. Complete Review of systems unable to obtain as patient is confused, now angry/ agitated, as subacute rehab. brought up. Active Medications Acetaminophen (Tylenol Tab) 650 mg PO Q4H PRN PRN Reason: Pain Albuterol/Ipratropium (Duoneb 0.5 Mg-3 Mg/3 Ml Soln) 3 ml INHALATION RT-QID PRN PRN Reason: Shortness Of Breath Or Wheezing Amlodipine Besylate (Norvasc) 5 mg PO BID@0800,1700 [facility] Last Admin: 07/23/18 16:51 Dose: 5 mg Amoxicillin/Clavulanate Potassium (Augmentin 500-125 Mg) 1 each PO BID [facility] Last Admin: 07/23/18 08:55 Dose: 1 each Anastrozole (Arimidex) 1 mg PO DAILY@0800 [facility] Last Admin: 07/23/18 08:55 Dose: 1 mg Apixaban (Eliquis) 2.5 mg PO BID@0800,1700 [facility] Last Admin: 07/23/18 16:51 Dose: 2.5 mg Ascorbic Acid (Vitamin C) 500 mg PO DAILY@1700 [facility] Last Admin: 07/23/18 16:51 Dose: 500 mg Aspirin (Aspirin) 81 mg PO DAILY@1700 [facility] Last Admin: 07/23/18 16:51 Dose: 81 mg Bisacodyl (Dulcolax) 10 mg RECTAL DAILY PRN PRN Reason: Constipation Cyanocobalamin (Vitamin B-12) 2,500 mcg PO DAILY@1700 [facility] Last Admin: 07/23/18 16:51 Dose: 2,500 mcg Famotidine (Pepcid) 20 mg PO DAILY [facility] Last Admin: 07/23/18 08:54 Dose: 20 mg Furosemide (Lasix) 40 mg PO BID@0900,1600 [facility] Last Admin: 07/23/18 16:51 Dose: 40 mg Insulin Aspart (Novolog) 5 unit SQ AC-TID [facility] Last Admin: 07/23/18 17:35 Dose: 5 unit Insulin Aspart (Novolog) 0 unit SQ ACHS [facility]; Protocol Last Admin: 07/23/18 17:35 Dose: 2 unit Insulin Detemir (Levemir) 30 unit SQ HS@2130 [facility] Last Admin: 07/22/18 21:53 Dose: 30 unit Magnesium Hydroxide (Milk Of Magnesia) 2,400 mg PO DAILY PRN PRN Reason: Constipation Sodium Biphosphate/Sodium Phosphate (Fleet Adult) 133 ml RECTAL DAILY PRN PRN Reason: Constipation Objective - Vital Signs Vital signs: Vital Signs Temp 98.2 F 07/23/18 16:00 Pulse 46 L 07/23/18 16:00 Resp 18 07/23/18 16:00 BP 164/98 07/23/18 16:00 Pulse Ox 96 07/23/18 16:00 Intake & Output 07/22/18 07/23/18 07/23/18 18:59 06:59 18:59 Intake Total 450 480 Output Total 0 1100 Balance 450 -620 Weight 103.3 kg Intake: Oral 450 480 Output: Urine 0 1100 Other: Voiding Method Bedside Commode Bedside Commode Bedside Commode # Voids 1 # Bowel Movements 1 1 - Exam GENERAL: The patient is sitting up in bed, alert and oriented x2, no acute distress. HEENT: Pupils are round and equal. EOMI. No scleral icterus. No conjunctival pallor. Normocephalic, atraumatic. Oral mucosa moist CARDIOVASCULAR: S1 and S2 present. Irregular, bradycardic, No murmurs, rubs, or gallops. -PULMONARY: Chest is clear to auscultation, no wheezing . Bilateral bases diminished. ABDOMEN: Soft, nontender, nondistended, positive bowel sounds. No palpable organomegaly. MUSCULOSKELETAL: No joint swelling or deformity. -EXTREMITIES: No cyanosis, clubbing, . Bilateral leg edema NEUROLOGICAL: Gross neurological examination did not reveal any focal deficits. SKIN: No rashes. - Labs CBC & Chem 7: 07/24/18 04:30 07/24/18 04:30 Labs: Abnormal Lab Results - Last 24 Hours (Table) 07/22/18 07/23/18 07/23/18 Range/Units 21:22 02:16 04:30 MCH (25.0-35.0) pg MCHC (31.0-37.0) g/dL BUN 30 H (7-17) mg/dL Creatinine 1.42 H (0.52-1.04) mg/dL Glucose 167 H (74-99) mg/dL POC Glucose (mg/dL) 179 H 192 H (75-99) mg/dL Calcium 10.9 H (8.4-10.2) mg/dL 07/23/18 07/23/18 07/23/18 Range/Units 04:30 06:58 11:57 MCH 24.2 L (25.0-35.0) pg MCHC 29.4 L (31.0-37.0) g/dL BUN (7-17) mg/dL Creatinine (0.52-1.04) mg/dL Glucose (74-99) mg/dL POC Glucose (mg/dL) 125 H 172 H (75-99) mg/dL Calcium (8.4-10.2) mg/dL 07/23/18 Range/Units 16:57 MCH (25.0-35.0) pg MCHC (31.0-37.0) g/dL BUN (7-17) mg/dL Creatinine (0.52-1.04) mg/dL Glucose (74-99) mg/dL POC Glucose (mg/dL) 154 H (75-99) mg/dL Calcium (8.4-10.2) mg/dL Microbiology - Last 24 Hours (Table) 07/18/18 09:50 Blood Culture - Preliminary Blood No Growth after 120 hours Assessment and Plan Assessment: Fluid overload, with pulmonary congestions and leg swelling. Suspicious for acute CHF, new onset. Mostly diastolic, ejection fraction 55-60% with mild LVH Right lower lobe pneumonia with pleural effusion. Chronic kidney disease, stage III History of diabetes mellitus History of DVT History of hyperlipidemia Essential hypertension History of chronic atrial fibrillation History of right breast cancer status post radiotherapy. History of recurrent falls Patient is DO NOT RESUSCITATE, confirmed with family at bedside Plan: Continue on current medication regime ,monitoring and symptomatic treatment. Continue on antihypertensives. Anticoagulated with Eliquis. Close monitoring of renal function, electrolytes with repeat labs ordered for a.m. GI prophylaxis with Pepcid. PT/OT. Attempted discussing plan of care with patient , comprehension questionable. Mood swings witnessed with abrupt agitation. Discussed case with social media sr strategy manager, as patient appears to be non-competent to make decisions at this time. Family has a letter stating the same from her primary Dr. Turner. Psychiatry consult for competency initiated as discussed with Dr. Turner. Potential permanent pacemaker discussed as per cardiology.Further recommendations to follow. The impression and plan of care has been dictated as directed. : I performed a history and examination of this patient, discussed the same with the dictator. I agree with the dictator's note ,documented as a scribe. Any additional findings or plans will be noted.
--- NOTE | 2018-07-24 16:39 | P.PN ---
Subjective Progress Note Date: 07/24/18 Progress note being dictated for Dr. Rock. 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 Patient follow-up with Dr. Peck. History of fall and rhabdomyolysis and acute kidney injury. Chronic kidney disease stage III. Presents because of dyspnea. pt herself is poor historian , information is taken with the help of family at bed side after pt gave approval for that. Patient apparently presents because of dyspnea of 1-2 days duration. She was at [facility] rehab, recently discharged from [facility] for metabolic encephalopathy and UTI. Patient was supposed to be discharged from rehab to home tomorrow however over the last 1 or 2 days patient was noticed to have increasing swelling of his abdominal and both legs, associated with dyspnea or phlegm. No chest pain. In the emergency room patient has chest x-ray : right lower lobe pneumonia with pleural effusion. And metastatic disease to the bone. His CBC showing WBC of 8.8. Hemoglobin 10.5. Her BMP was unremarkable except for with creatinine 1.5 which is at his baseline, baseline creatinine is 1.2 to 1.8. Patient was started on Levaquin and Zosyn and Lasix 40 mg twice a day Patient suspected to have fluid overload and heart failure, patient does not have history of heart failure. We'll order echo 07/19/2018 Patient feels better and she stated that her breathing is improving. She still have bilateral leg swelling. Cardiology input is appreciated, they recommended TSH and Lasix 40 mg twice a day. Patient remains in the ICU for overflow bed. Echo is still pending 07/20/2018 Patient looks his stable compared to yesterday she is in the ICU for overflow bed. Bilateral leg swelling slightly improving. She last about 1 kg from her weight. Patient remains on diuresis. Cardiology follow-up is appreciated and they recommended to switch to oral Lasix in the next 24-48 hours as 40 mg twice daily, compared to once daily at home. 07/21/2018 Patient feels generally the same, she remains in the ICU for overflow bed. She denies chest pain or dyspnea. Her leg swelling is coming down but it's has wrapped. Her weight today is up from 100 kg to 103 kg. Patient remains on IV Lasix 40 mg twice a day and cartilage team are planning to switch her to oral dose later on. I talked to the patient's accordance the recommendation of the physical therapy she needs subacute rehab and she agrees to it. Patient was not on home oxygen. She saw bradycardic. However his blood pressure is stable. Creatinine stable at 1.4. Sugar controlled. Cardiology are following the patient. She is currently on Augmentin. date of service : 07/22/2018 pt is seen and examined by me at bed side, she still in icu but as overflow bed , pt with no denies chest pain or dyspnea, as per pt she continue to improve, she has less leg swelling , programming instructor follow up is appreciated and she was switched to oral lasix today, pt has asymptomatic bradycardia and cardiology are following the case , blood pressure is stable, her weight looks stable as well. pt most likely is going to rehab after discharge. 07/22/18 Selective overflow. Atrial fib- flutter, heart rates currently in the 40s. Breathing continues to improve with decreasing leg edema. Patient recently discharged from our with subacute rehab., and currently refusing rehab. once medically stable for discharge.Creatinine 1.42. Potassium 4.7. Losartan added to med regime as per cardiology.Denies lightheadedness dizziness or focal deficits. Denies chest pain, palpitations or increased shortness of breath. Complete Review of systems unable to obtain as patient is confused, now angry/ agitated, as subacute rehab. brought up. Active Medications Acetaminophen (Tylenol Tab) 650 mg PO Q4H PRN PRN Reason: Pain Albuterol/Ipratropium (Duoneb 0.5 Mg-3 Mg/3 Ml Soln) 3 ml INHALATION RT-QID PRN PRN Reason: Shortness Of Breath Or Wheezing Amlodipine Besylate (Norvasc) 5 mg PO BID@0800,1700 [facility] Last Admin: 07/23/18 16:51 Dose: 5 mg Amoxicillin/Clavulanate Potassium (Augmentin 500-125 Mg) 1 each PO BID [facility] Last Admin: 07/23/18 08:55 Dose: 1 each Anastrozole (Arimidex) 1 mg PO DAILY@0800 [facility] Last Admin: 07/23/18 08:55 Dose: 1 mg Apixaban (Eliquis) 2.5 mg PO BID@0800,1700 [facility] Last Admin: 07/23/18 16:51 Dose: 2.5 mg Ascorbic Acid (Vitamin C) 500 mg PO DAILY@1700 [facility] Last Admin: 07/23/18 16:51 Dose: 500 mg Aspirin (Aspirin) 81 mg PO DAILY@1700 [facility] Last Admin: 07/23/18 16:51 Dose: 81 mg Bisacodyl (Dulcolax) 10 mg RECTAL DAILY PRN PRN Reason: Constipation Cyanocobalamin (Vitamin B-12) 2,500 mcg PO DAILY@1700 [facility] Last Admin: 07/23/18 16:51 Dose: 2,500 mcg Famotidine (Pepcid) 20 mg PO DAILY [facility] Last Admin: 07/23/18 08:54 Dose: 20 mg Furosemide (Lasix) 40 mg PO BID@0900,1600 [facility] Last Admin: 07/23/18 16:51 Dose: 40 mg Insulin Aspart (Novolog) 5 unit SQ AC-TID [facility] Last Admin: 07/23/18 17:35 Dose: 5 unit Insulin Aspart (Novolog) 0 unit SQ ACHS [facility]; Protocol Last Admin: 07/23/18 17:35 Dose: 2 unit Insulin Detemir (Levemir) 30 unit SQ HS@2130 [facility] Last Admin: 07/22/18 21:53 Dose: 30 unit Magnesium Hydroxide (Milk Of Magnesia) 2,400 mg PO DAILY PRN PRN Reason: Constipation Sodium Biphosphate/Sodium Phosphate (Fleet Adult) 133 ml RECTAL DAILY PRN PRN Reason: Constipation 07/24/18 sitting up in bed, breathing continues to improve. Currently not agitated at this time, pleasantly confused. More cooperative today, but complains of increased fatigue. Potassium 4.5, creatinine 1.33. CONSTITUTIONAL: Positive fatigue. HEENT: No recent visual problems or hearing problems. Denied any sore throat. CARDIOVASCULAR: No chest pain, no palpitations, no syncope. PULMONARY: No increased shortness of breath, no cough, no hemoptysis. GASTROINTESTINAL: No diarrhea, no nausea, no vomiting, no abdominal pain. NEUROLOGICAL: No headaches, no weakness, no numbness. HEMATOLOGICAL: Denies any bleeding or petechiae. GENITOURINARY: Denies any burning micturition, frequency, or urgency. MUSCULOSKELETAL/RHEUMATOLOGICAL: Denies any joint pain, swelling, or any muscle pain. ENDOCRINE: Denies any polyuria or polydipsia. Active Medications Generic Name Dose Route Start Last Admin Trade Name Nasrin PRN Reason Stop Dose Admin Acetaminophen 650 mg 07/18/18 17:56 07/23/18 21:51 Tylenol Tab PO 650 mg Q4H PRN Administration Pain Albuterol/Ipratropium 3 ml 07/18/18 10:31 Duoneb 0.5 Mg-3 Mg/3 Ml Soln INHALATION RT-QID PRN Shortness Of Breath Or Wheezing Amlodipine Besylate 5 mg 07/18/18 18:07 07/24/18 09:47 Norvasc PO 5 mg BID@0800,1700 [place] Administration Amoxicillin/Clavulanate Potassium 1 each 07/21/18 09:00 07/24/18 09:48 Augmentin 500-125 Mg PO 1 each BID [place] Administration Anastrozole 1 mg 07/19/18 08:00 07/24/18 09:48 Arimidex PO 1 mg DAILY@0800 [place] Administration Apixaban 2.5 mg 07/19/18 08:00 07/24/18 09:47 Eliquis PO 2.5 mg BID@0800,1700 [place] Administration Ascorbic Acid 500 mg 07/19/18 17:00 07/23/18 16:51 Vitamin C PO 500 mg DAILY@1700 [place] Administration Aspirin 81 mg 07/19/18 17:00 07/23/18 16:51 Aspirin PO 81 mg DAILY@1700 [place] Administration Bisacodyl 10 mg 07/18/18 17:56 Dulcolax RECTAL DAILY PRN Constipation Cyanocobalamin 2,500 mcg 07/19/18 17:00 07/23/18 16:51 Vitamin B-12 PO 2,500 mcg DAILY@1700 [place] Administration Famotidine 20 mg 07/20/18 09:00 07/24/18 09:48 Pepcid PO 20 mg DAILY [place] Administration Furosemide 40 mg 07/22/18 16:00 07/24/18 09:48 Lasix PO 40 mg BID@0900,1600 [place] Administration Insulin Aspart 5 unit 07/19/18 07:30 07/24/18 13:07 Novolog SQ 5 unit AC-TID [place] Administration Insulin Aspart 0 unit 07/18/18 18:19 07/24/18 13:07 Novolog SQ Not Given ACHS [facility] Protocol Insulin Detemir 30 unit 07/22/18 21:30 07/23/18 21:51 Levemir SQ 30 unit HS@2130 [facility] Administration Magnesium Hydroxide 2,400 mg 07/18/18 17:56 Milk Of Magnesia PO DAILY PRN Constipation Sodium Biphosphate/Sodium Phosphate 133 ml 07/18/18 17:56 Fleet Adult RECTAL DAILY PRN Constipation Objective - Vital Signs Vital signs: Vital Signs Temp 98 F 07/24/18 12:00 Pulse 41 L 07/24/18 12:00 Resp 16 07/24/18 12:00 BP 157/56 07/24/18 12:00 Pulse Ox 96 07/24/18 12:00 Intake & Output 07/23/18 07/24/18 07/24/18 18:59 06:59 18:59 Intake Total 480 300 Output Total 1100 200 Balance -620 -200 300 Weight 103.8 kg Intake: Oral 480 300 Output: Urine 1100 200 Other: Voiding Method Bedside Commode Bedside Commode Bedside Commode # Voids 0 # Bowel Movements 1 - Exam GENERAL: Sitting up in bed, alert and oriented x2, no acute distress. Sleepy HEENT: Pupils are round and equal. EOMI. No scleral icterus. No conjunctival pallor. Normocephalic, atraumatic. Oral mucosa moist CARDIOVASCULAR: S1 and S2 present. Irregular, bradycardic, No murmurs, rubs, or gallops. -PULMONARY: Lungs essentially clear with bilateral bases diminished. ABDOMEN: Soft, nontender, nondistended, positive bowel sounds. No palpable organomegaly. MUSCULOSKELETAL: No joint swelling or deformity. -EXTREMITIES: No cyanosis, clubbing, . Bilateral leg edema NEUROLOGICAL: Gross neurological examination did not reveal any focal deficits. SKIN: No rashes. - Labs CBC & Chem 7: 07/24/18 04:30 07/24/18 04:30 Labs: Abnormal Lab Results - Last 24 Hours (Table) 07/23/18 07/23/18 07/24/18 Range/Units 16:57 20:54 04:30 BUN 34 H (7-17) mg/dL Creatinine 1.33 H (0.52-1.04) mg/dL POC Glucose (mg/dL) 154 H 226 H (75-99) mg/dL Calcium 11.2 H (8.4-10.2) mg/dL 07/24/18 Range/Units 12:31 BUN (7-17) mg/dL Creatinine (0.52-1.04) mg/dL POC Glucose (mg/dL) 114 H (75-99) mg/dL Calcium (8.4-10.2) mg/dL Microbiology - Last 24 Hours (Table) 07/18/18 09:50 Blood Culture - Final Blood No Growth after 144 hours Assessment and Plan Assessment: Acute on chronic CHF, diastolic dysfunction, ejection fraction 55-60% with mild LVH Right lower lobe pneumonia with pleural effusion. Chronic atrial fibrillation Chronic kidney disease, stage III Diabetes mellitus History of DVT History of hyperlipidemia Essential hypertension History of right breast cancer status post radiotherapy. History of recurrent falls Patient is DO NOT RESUSCITATE, confirmed with family at bedside Plan: Continue on current medication regime ,monitoring and symptomatic treatment. Close monitoring of renal function, electrolytes with repeat labs ordered for a.m. Psychiatry consult in place, recommendations pending. Potential permanent pacemaker as per cardiology.Further recommendations to follow. The impression and plan of care has been dictated as directed. : I performed a history and examination of this patient, discussed the same with the dictator. I agree with the dictator's note ,documented as a scribe. Any additional findings or plans will be noted.
[2018-07-24 16:56] LABS: Glucose,Whole Blood 150 mg/dL (75-99)
--- NOTE | 2018-07-24 17:26 | XR ---
EXAMINATION TYPE: XR chest 1V portable DATE OF EXAM: 07/24/2018 COMPARISON: 07/19/2018 HISTORY: Bradycardia. TECHNIQUE: Single frontal view of the chest is obtained. FINDINGS: Heart appears enlarged. There is prominent vascular congestion. There is some blunting of the costophrenic angles. There are chest leads. There are old left-sided healed rib fractures. IMPRESSION: Mild congestive heart failure with pleural effusions. There is slight improvement compar ed to last exam.
[2018-07-24] MEDS: CYANOCOBALAMIN 500 MCG TAB PO SCH (17:59)
[2018-07-24] MEDS: ASPIRIN 81 MG PO SCH (18:00)
[2018-07-24] MEDS: ASCORBIC ACID 500 MG TAB PO SCH (18:00)
[2018-07-24 21:47] LABS: Glucose,Whole Blood 202 mg/dL (75-99)
[2018-07-24] MEDS: INSULIN DETEMIR 100 UNIT/ML 10 ML VIAL SQ SCH (22:05)
[2018-07-25 05:18] LABS: Basophils % (A) 1 %; Eosinophils # (A) 0.4 k/uL (0-0.7); Eosinophils % (A) 5 %; HCT 39.7 % (34.0-46.0); Hypochromasia Marked; Lymphocytes # (A) 1.2 k/uL (1.0-4.8); Lymphocytes % (A) 16 %; MCH 24.7 pg (25.0-35.0); MCHC 30.1 g/dL (31.0-37.0); MCV 82.1 fL (80.0-100.0); Mean Platelet Volume 7.5; Monocytes # (A) 0.5 k/uL (0-1.0); Monocytes % (A) 7 %; Neutrophils % (A) 68 %; Platelet Count 179 k/uL (150-450); RBC 4.84 m/uL (3.80-5.40); RDW 15.3 % (11.5-15.5); WBC 7.3 k/uL (3.8-10.6)
[2018-07-25 05:28] LABS: Calcium 11.9 mg/dL (8.4-10.2); Potassium 4.7 mmol/L (3.5-5.1)
[2018-07-25] MEDS: INSULIN ASPART 100 UNIT/ML 1 ML 10 ML VIAL SQ SCH ×7 (07:08→21:58)
[2018-07-25 07:18] LABS: Glucose,Whole Blood 120 mg/dL (75-99)
[2018-07-25] MEDS: APIXABAN 2.5 MG TABLET PO SCH ×2 (09:40→17:30)
[2018-07-25] MEDS: amLODIPine 5 MG TAB PO SCH ×2 (09:40→17:30)
[2018-07-25] MEDS: ANASTROZOLE 1 MG TAB PO SCH (09:40)
[2018-07-25] MEDS: FUROSEMIDE 40 MG TAB PO SCH ×2 (09:41→17:30)
[2018-07-25] MEDS: AMOXIC-POT CLAV 500-125 MG 1 EACH TAB PO SCH ×2 (09:41→22:37)
[2018-07-25] MEDS: FAMOTIDINE 20 MG TAB PO SCH (09:41)
[2018-07-25 11:52] LABS: Glucose,Whole Blood 232 mg/dL (75-99)
--- NOTE | 2018-07-25 13:27 | P.CN ---
Psychiatric Consult - . Consult date: 07/25/18 Consult:: 07/25/18 12:11 Capacity to make medical decisions Assessment and Plan Assessment: This is a pleasant 83 years old female with past medical history of diabetes mellitus, DVT, hyperlipidemia, hypertension, memory impairment, atrial fibrillation, right breast cancer in 2013 with metastasis to the spine status post radiotherapy. Patient follow-up with Dr. Peck. History of fall and rhabdomyolysis and acute kidney injury. Chronic kidney disease stage III. Presents because of dyspnea. pt herself is poor historian , information is taken with the help of family at bed side after pt gave approval for that. Patient apparently presents because of dyspnea of 1-2 days duration. She was at [facility] rehab, recently discharged from [facility] for metabolic encephalopathy and UTI. Patient was supposed to be discharged from rehab to home tomorrow however over the last 1 or 2 days patient was noticed to have increasing swelling of his abdominal and both legs, associated with dyspnea or phlegm. No chest pain. In the emergency room patient has chest x-ray : right lower lobe pneumonia with pleural effusion. And metastatic disease to the bone. His CBC showing WBC of 8.8. Hemoglobin 10.5. Her BMP was unremarkable except for with creatinine 1.5 which is at his baseline, baseline creatinine is 1.2 to 1.8. Patient was started on Levaquin and Zosyn and Lasix 40 mg twice a day Patient suspected to have fluid overload and heart failure, patient does not have history of heart failure. It appears that cardiology and medicine have asked her about the procedures to be done and she is vague and cannot make a decision therefore a consult was requested for psychiatric capacity to make medical decisions was ordered. Past Medical History Past Medical History: Atrial Flutter, Cancer, Diabetes Mellitus, Deep Vein Thrombosis (DVT), Eye Disorder, Hyperlipidemia, Hypertension, Memory Impairment , Renal Disease Additional Past Medical History / Comment(s): hx. rt breast cancer-2014 has mets to spine(sx and radiation tx and currently reciving hormone blockers, metastasis to spine-gets tx.hx of anemia requiring blood transfusion, DVT leg years ago, uses walker, bone CA-sees dr hu, kidney stones(sx), uti's/ urosepsis/bacteremia,ad foot fx-no sx just casted. 2016 fall/rhabomyolosis/ akf. family stated pt has kidney disease but refused to seek tx per specilaist" History of Any Multi-Drug Resistant Organisms: None Reported Past Surgical History: Breast Surgery, Cholecystectomy, Heart Catheterization, Tubal Ligation Additional Past Surgical History / Comment(s): right mastectomy, cataracts removed, excision of lesion rt cheek, steroid inj in past for heel spur, lithotripsy Past Anesthesia/Blood Transfusion Reactions: No Reported Reaction Smoking Status: Never smoker - Past Family History Mother Family Medical History: Diabetes Mellitus Father Family Medical History: Congestive Heart Failure (CHF) Medications and Allergies Home Medications Medication Instructions Recorded Confirmed Type RX: Anastrozole [Arimidex] 1 mg PO DAILY@0800 05/14/15 07/18/18 History RX: Aspirin [Adult Low Dose 81 mg PO DAILY@1700 10/06/17 07/18/18 History Aspirin EC] RX: Furosemide [Lasix] 40 mg PO DAILY@0800 10/06/17 07/18/18 History RX: Apixaban [Eliquis] 2.5 mg PO BID@0800,1700 06/26/18 07/18/18 History RX: Ascorbic Acid [Vitamin C] 500 mg PO DAILY@1700 06/26/18 07/18/18 History RX: Cyanocobalamin (Vitamin B-12) 2,500 mcg PO DAILY@1700 06/26/18 07/18/18 History [Vitamin B12] Acetaminophen Tab [Tylenol Tab] 650 mg PO Q4H PRN 07/18/18 07/18/18 History Bisacodyl [Dulcolax] 10 mg RECTAL DAILY PRN 07/18/18 07/18/18 History Insulin Aspart [NovoLOG 9 unit SQ AC-TID 07/18/18 07/18/18 History (formulary)] Magnesium Hydroxide [Milk of 2,400 mg PO DAILY PRN 07/18/18 07/18/18 History Magnesia] Na Phos,M-B/Na Phos,Di-Ba [Fleet 133 ml RECTAL DAILY PRN 07/18/18 07/18/18 History Adult] RX: Glucerna Shake 1 can PO DAILY@2100 07/18/18 07/18/18 History RX: Insulin Detemir [Levemir] 38 unit SQ HS@21307/18/18 07/18/18 History amLODIPine [Norvasc] 5 mg PO BID@0800,1700 07/18/18 07/18/18 History Allergies Allergy/AdvReac Type Severity Reaction Status Date / Time codeine Allergy Abdominal Verified 07/18/18 09:35 Pain Mental Status Examination - this is a pleasant 83-year-old female who was sitting by bedside pleasant in nature but has no short-term memory. Contrary to what I've seen and patient care she is not oriented to date or situation of why she is in the hospital. It took several attempts to get find out her exact birthday before she kept on making mistakes. In reviewing the medical record I do not see any recent MRIs of her head which would be helpful in making determinations she has cerebrovascular disease which is probably highly unlikely since she has diabetes and cardiovascular disease one word see cerebrovascular disease as well General Appearance: [well groomed appears younger than stated age] Speech/Language: [spontaneous Attitude/Behavior: [cooperative Mood: [euthymic Affect: [full range Orientation: [Not to time time, person, place not to situation situation] Thought Content: [wnl Risk Factors: [Denies suicidal (ideations, plan), and/or Homicidal (ideations, plan), other] Perception: [wnl, denies hallucinations (auditory, visual, tactile), other] Thought Processes: [ concrete Concentration/Attention Span: [impaired] [Per observation and interview with the patient] Recent Memory: [ impaired] [0 out of 3 in 3 minutes] Remote Memory: [ impaired] [past events, as related history] Intelligence: [below average] [based on history, based on vocabulary, syntax, grammar, and content] Judgement: [ poor] [per patient's behavior/history of present illness] Insight: [ poor] [understanding severity of illness/history of present illness] Psychiatric impression: Mild to moderate dementia Psychiatric recommendations: Highly recommend having a guardian and with needed outpatient MRI and neuropsych testing to determine the degree of dementia. I feel she does not have the capacity to make medical decisions at this point in time. Thank you for the consult London Carpenter D.O. PhD (1) Altered mental status Current Visit: Yes Status: Acute Code(s): R41.82 - ALTERED MENTAL STATUS, UNSPECIFIED SNOMED Code(s): 003949233 Time with Patient: Greater than 30
[2018-07-25] MEDS: CYANOCOBALAMIN 500 MCG TAB PO SCH (17:30)
[2018-07-25] MEDS: ASPIRIN 81 MG PO SCH (17:30)
[2018-07-25] MEDS: ASCORBIC ACID 500 MG TAB PO SCH (17:30)
[2018-07-25 17:40] LABS: Glucose,Whole Blood 154 mg/dL (75-99)
--- NOTE | 2018-07-25 17:54 | PN ---
PROGRESS NOTE DATE OF SERVICE: 07/25/2018 To whom it may concern: This 83-year-old woman who was admitted with multiple medical problems was seen by Psychiatry at length and Dr. Omer Carpenter feels that she does not have any capacity to make medical decisions at this point in time. The patient also is unable to take care of herself, which was discussed at length with the family at this time. The social research assistant and Case Management to follow. Dr. Chris Turner who is the primary physician also feels the same way. Please refer to further documentation notes for further information. Thank you. MMODL / IJN: [id number] /
[2018-07-25 21:02] LABS: Glucose,Whole Blood 120 mg/dL (75-99)
[2018-07-25] MEDS: INSULIN DETEMIR 100 UNIT/ML 10 ML VIAL SQ SCH (22:05)
[2018-07-26 05:41] LABS: Glucose,Whole Blood 135 mg/dL (75-99)
[2018-07-26] MEDS: INSULIN ASPART 100 UNIT/ML 1 ML 10 ML VIAL SQ SCH ×7 (06:01→22:03)
[2018-07-26 07:02] LABS: Basophils % (A) 1 %; Eosinophils # (A) 0.3 k/uL (0-0.7); Eosinophils % (A) 5 %; HCT 39.1 % (34.0-46.0); HGB 11.9 gm/dL (11.4-16.0); Hypochromasia Moderate; Lymphocytes # (A) 1.5 k/uL (1.0-4.8); Lymphocytes % (A) 22 %; MCH 24.7 pg (25.0-35.0); MCHC 30.5 g/dL (31.0-37.0); MCV 81.2 fL (80.0-100.0); Mean Platelet Volume 7.3; Monocytes # (A) 0.5 k/uL (0-1.0); Monocytes % (A) 7 %; Neutrophils # (A) 4.3 k/uL (1.3-7.7); Neutrophils % (A) 63 %; Platelet Count 197 k/uL (150-450); RBC 4.82 m/uL (3.80-5.40); RDW 15.3 % (11.5-15.5); WBC 6.8 k/uL (3.8-10.6)
[2018-07-26 07:13] LABS: Potassium 4.7 mmol/L (3.5-5.1)
[2018-07-26] MEDS: ANASTROZOLE 1 MG TAB PO SCH (09:00)
[2018-07-26] MEDS: FAMOTIDINE 20 MG TAB PO SCH (09:00)
[2018-07-26] MEDS: amLODIPine 5 MG TAB PO SCH ×2 (09:00→16:33)
[2018-07-26] MEDS: FUROSEMIDE 40 MG TAB PO SCH ×2 (09:00→16:33)
[2018-07-26] MEDS: APIXABAN 2.5 MG TABLET PO SCH ×2 (09:00→16:33)
[2018-07-26] MEDS: AMOXIC-POT CLAV 500-125 MG 1 EACH TAB PO SCH ×2 (09:01→19:38)
[2018-07-26 11:29] LABS: Glucose,Whole Blood 148 mg/dL (75-99)
[2018-07-26 14:02] VITALS: BMI 33.7
--- NOTE | 2018-07-26 15:14 | P.PN ---
Subjective Progress Note Date: 07/26/18 This is a pleasant 83 years old female with past medical history of diabetes mellitus, DVT, hyperlipidemia, hypertension, memory impairment, atrial fibrillation, right breast cancer in 2013 with metastasis to the spine status post radiotherapy. Patient follow-up with Dr. Peck. History of fall and rhabdomyolysis and acute kidney injury. Chronic kidney disease stage III. Presents because of dyspnea. pt herself is poor historian , information is taken with the help of family at bed side after pt gave approval for that. Patient apparently presents because of dyspnea of 1-2 days duration. Cardiology consultation was initially requested because of atrial fibrillation with bradycardia. Patient also was in some mild congestive heart failure, diastolic, acute on chronic. White blood cell count 6.8, hemoglobin 11.9, platelet count 197. Sodium 139, potassium 4.7, BUN 35, creatinine 1.4. Blood pressure 142/50 with a heart rate in the 40s, 96% on 2 L of oxygen. Breathing has improved significantly. TSH is normal. Objective - Vital Signs Vital signs: Vital Signs Temp 97.6 F 07/26/18 11:35 Pulse 44 L 07/26/18 11:35 Resp 16 07/26/18 11:35 BP 143/57 07/26/18 11:35 Pulse Ox 96 07/26/18 11:35 Intake & Output 07/25/18 07/26/18 07/26/18 18:59 06:59 18:59 Intake Total 600 20 490 Output Total 200 Balance 400 20 490 Weight 97.8 kg 97.8 kg Intake: IV 20 10 0.9 20 10 Oral 600 480 Output: Urine 200 Other: Voiding Method Bedside Commode Bedside Commode # Voids 1 2 1 # Bowel Movements 1 - Exam PHYSICAL EXAMINATION: GENERAL: 83-year-old female in no acute distress at the time of my examination HEENT: Head is atraumatic, normocephalic. Pupils equal, round. Sclera anicteric. Conjunctiva are clear. Mucous membranes of the mouth are moist. Neck is supple. There is no elevated jugular venous pressure. No carotid bruit is heard. HEART EXAMINATION: Heart S1 and S2 irregularly irregular CHEST EXAMINATION: Lungs are clear to auscultation and precussion. No chest wall tenderness is noted on palpation or with deep breathing. ABDOMEN: Soft, nontender. Bowel sounds are heard. No organomegaly noted. EXTREMITIES: 2+ peripheral pulses with no evidence of peripheral edema and no calf tenderness noted. NEUROLOGIC patient is awake, alert and oriented 3 . . - Labs CBC & Chem 7: 07/26/18 05:33 07/26/18 05:33 Labs: Abnormal Lab Results - Last 24 Hours (Table) 07/25/18 07/25/18 07/26/18 Range/Units 17:26 21:00 05:33 MCH 24.7 L (25.0-35.0) pg MCHC 30.5 L (31.0-37.0) g/dL Carbon Dioxide (22-30) mmol/L BUN (7-17) mg/dL Creatinine (0.52-1.04) mg/dL Glucose (74-99) mg/dL POC Glucose (mg/dL) 154 H 120 H (75-99) mg/dL Calcium (8.4-10.2) mg/dL 07/26/18 07/26/18 07/26/18 Range/Units 05:33 05:39 11:23 MCH (25.0-35.0) pg MCHC (31.0-37.0) g/dL Carbon Dioxide 33 H (22-30) mmol/L BUN 35 H (7-17) mg/dL Creatinine 1.48 H (0.52-1.04) mg/dL Glucose 138 H (74-99) mg/dL POC Glucose (mg/dL) 135 H 148 H (75-99) mg/dL Calcium 12.0 H (8.4-10.2) mg/dL Assessment and Plan Plan: Assessment and plan #1 Acute on chronic CHF, diastolic dysfunction, ejection fraction 55-60% with mild LVH #2 Right lower lobe pneumonia with pleural effusion. #3 Chronic atrial fibrillation, bradycardic #4 Chronic kidney disease, stage III #5 Diabetes mellitus #6 History of DVT #7 History of hyperlipidemia #8 Essential hypertension #9 History of right breast cancer status post radiotherapy. History of recurrent falls Plan From cardiology's perspective, we will continue current medical regime. Patient is asymptomatic with her bradycardia. DNP note has been reviewed, I agree with a documented findings and plan of care. Patient was seen and examined.
[2018-07-26 16:28] LABS: Glucose,Whole Blood 223 mg/dL (75-99)
[2018-07-26] MEDS: ASPIRIN 81 MG PO SCH (16:33)
[2018-07-26] MEDS: ASCORBIC ACID 500 MG TAB PO SCH (16:33)
[2018-07-26] MEDS: CYANOCOBALAMIN 500 MCG TAB PO SCH (16:33)
[2018-07-26 20:47] LABS: Glucose,Whole Blood 137 mg/dL (75-99)
[2018-07-26] MEDS: INSULIN DETEMIR 100 UNIT/ML 10 ML VIAL SQ SCH (22:02)
--- NOTE | 2018-07-26 22:47 | P.PN ---
Subjective Progress Note Date: 07/25/18 Progress note being dictated for Dr. Rock. 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 Patient follow-up with Dr. Peck. History of fall and rhabdomyolysis and acute kidney injury. Chronic kidney disease stage III. Presents because of dyspnea. pt herself is poor historian , information is taken with the help of family at bed side after pt gave approval for that. Patient apparently presents because of dyspnea of 1-2 days duration. She was at [facility], recently discharged from [facility] for metabolic encephalopathy and UTI. Patient was supposed to be discharged from rehab to home tomorrow however over the last 1 or 2 days patient was noticed to have increasing swelling of his abdominal and both legs, associated with dyspnea or phlegm. No chest pain. In the emergency room patient has chest x-ray : right lower lobe pneumonia with pleural effusion. And metastatic disease to the bone. His CBC showing WBC of 8.8. Hemoglobin 10.5. Her BMP was unremarkable except for with creatinine 1.5 which is at his baseline, baseline creatinine is 1.2 to 1.8. Patient was started on Levaquin and Zosyn and Lasix 40 mg twice a day Patient suspected to have fluid overload and heart failure, patient does not have history of heart failure. We'll order echo 07/19/2018 Patient feels better and she stated that her breathing is improving. She still have bilateral leg swelling. Cardiology input is appreciated, they recommended TSH and Lasix 40 mg twice a day. Patient remains in the ICU for overflow bed. Echo is still pending 07/20/2018 Patient looks his stable compared to yesterday she is in the ICU for overflow bed. Bilateral leg swelling slightly improving. She last about 1 kg from her weight. Patient remains on diuresis. Cardiology follow-up is appreciated and they recommended to switch to oral Lasix in the next 24-48 hours as 40 mg twice daily, compared to once daily at home. 07/21/2018 Patient feels generally the same, she remains in the ICU for overflow bed. She denies chest pain or dyspnea. Her leg swelling is coming down but it's has wrapped. Her weight today is up from 100 kg to 103 kg. Patient remains on IV Lasix 40 mg twice a day and cartilage team are planning to switch her to oral dose later on. I talked to the patient's accordance the recommendation of the physical therapy she needs subacute rehab and she agrees to it. Patient was not on home oxygen. She saw bradycardic. However his blood pressure is stable. Creatinine stable at 1.4. Sugar controlled. Cardiology are following the patient. She is currently on Augmentin. date of service : 07/22/2018 pt is seen and examined by me at bed side, she still in icu but as overflow bed , pt with no denies chest pain or dyspnea, as per pt she continue to improve, she has less leg swelling , pot filler follow up is appreciated and she was switched to oral lasix today, pt has asymptomatic bradycardia and cardiology are following the case , blood pressure is stable, her weight looks stable as well. pt most likely is going to rehab after discharge. 07/22/18 Selective overflow. Atrial fib- flutter, heart rates currently in the 40s. Breathing continues to improve with decreasing leg edema. Patient recently discharged from our with subacute rehab., and currently refusing rehab. once medically stable for discharge.Creatinine 1.42. Potassium 4.7. Losartan added to med regime as per cardiology.Denies lightheadedness dizziness or focal deficits. Denies chest pain, palpitations or increased shortness of breath. Complete Review of systems unable to obtain as patient is confused, now angry/ agitated, as subacute rehab. brought up. Active Medications Acetaminophen (Tylenol Tab) 650 mg PO Q4H PRN PRN Reason: Pain Albuterol/Ipratropium (Duoneb 0.5 Mg-3 Mg/3 Ml Soln) 3 ml INHALATION RT-QID PRN PRN Reason: Shortness Of Breath Or Wheezing Amlodipine Besylate (Norvasc) 5 mg PO BID@0800,1700 [facility] Last Admin: 07/23/18 16:51 Dose: 5 mg Amoxicillin/Clavulanate Potassium (Augmentin 500-125 Mg) 1 each PO BID [facility] Last Admin: 07/23/18 08:55 Dose: 1 each Anastrozole (Arimidex) 1 mg PO DAILY@0800 [facility] Last Admin: 07/23/18 08:55 Dose: 1 mg Apixaban (Eliquis) 2.5 mg PO BID@0800,1700 [facility] Last Admin: 07/23/18 16:51 Dose: 2.5 mg Ascorbic Acid (Vitamin C) 500 mg PO DAILY@1700 [facility] Last Admin: 07/23/18 16:51 Dose: 500 mg Aspirin (Aspirin) 81 mg PO DAILY@1700 [facility] Last Admin: 07/23/18 16:51 Dose: 81 mg Bisacodyl (Dulcolax) 10 mg RECTAL DAILY PRN PRN Reason: Constipation Cyanocobalamin (Vitamin B-12) 2,500 mcg PO DAILY@1700 [facility] Last Admin: 07/23/18 16:51 Dose: 2,500 mcg Famotidine (Pepcid) 20 mg PO DAILY [facility] Last Admin: 07/23/18 08:54 Dose: 20 mg Furosemide (Lasix) 40 mg PO BID@0900,1600 [facility] Last Admin: 07/23/18 16:51 Dose: 40 mg Insulin Aspart (Novolog) 5 unit SQ AC-TID [facility] Last Admin: 07/23/18 17:35 Dose: 5 unit Insulin Aspart (Novolog) 0 unit SQ ACHS [facility]; Protocol Last Admin: 07/23/18 17:35 Dose: 2 unit Insulin Detemir (Levemir) 30 unit SQ HS@2130 [facility] Last Admin: 07/22/18 21:53 Dose: 30 unit Magnesium Hydroxide (Milk Of Magnesia) 2,400 mg PO DAILY PRN PRN Reason: Constipation Sodium Biphosphate/Sodium Phosphate (Fleet Adult) 133 ml RECTAL DAILY PRN PRN Reason: Constipation 07/24/18 sitting up in bed, breathing continues to improve. Currently not agitated at this time, pleasantly confused. More cooperative today, but complains of increased fatigue. Potassium 4.5, creatinine 1.33. CONSTITUTIONAL: Positive fatigue. HEENT: No recent visual problems or hearing problems. Denied any sore throat. CARDIOVASCULAR: No chest pain, no palpitations, no syncope. PULMONARY: No increased shortness of breath, no cough, no hemoptysis. GASTROINTESTINAL: No diarrhea, no nausea, no vomiting, no abdominal pain. NEUROLOGICAL: No headaches, no weakness, no numbness. HEMATOLOGICAL: Denies any bleeding or petechiae. GENITOURINARY: Denies any burning micturition, frequency, or urgency. MUSCULOSKELETAL/RHEUMATOLOGICAL: Denies any joint pain, swelling, or any muscle pain. ENDOCRINE: Denies any polyuria or polydipsia. Active Medications Generic Name Dose Route Start Last Admin Trade Name Nasrin PRN Reason Stop Dose Admin Acetaminophen 650 mg 07/18/18 17:56 07/23/18 21:51 Tylenol Tab PO 650 mg Q4H PRN Administration Pain Albuterol/Ipratropium 3 ml 07/18/18 10:31 Duoneb 0.5 Mg-3 Mg/3 Ml Soln INHALATION RT-QID PRN Shortness Of Breath Or Wheezing Amlodipine Besylate 5 mg 07/18/18 18:07 07/24/18 09:47 Norvasc PO 5 mg BID@0800,1700 [place] Administration Amoxicillin/Clavulanate Potassium 1 each 07/21/18 09:00 07/24/18 09:48 Augmentin 500-125 Mg PO 1 each BID [place] Administration Anastrozole 1 mg 07/19/18 08:00 07/24/18 09:48 Arimidex PO 1 mg DAILY@0800 [place] Administration Apixaban 2.5 mg 07/19/18 08:00 07/24/18 09:47 Eliquis PO 2.5 mg BID@0800,1700 [place] Administration Ascorbic Acid 500 mg 07/19/18 17:00 07/23/18 16:51 Vitamin C PO 500 mg DAILY@1700 [place] Administration Aspirin 81 mg 07/19/18 17:00 07/23/18 16:51 Aspirin PO 81 mg DAILY@1700 [place] Administration Bisacodyl 10 mg 07/18/18 17:56 Dulcolax RECTAL DAILY PRN Constipation Cyanocobalamin 2,500 mcg 07/19/18 17:00 07/23/18 16:51 Vitamin B-12 PO 2,500 mcg DAILY@1700 [place] Administration Famotidine 20 mg 07/20/18 09:00 07/24/18 09:48 Pepcid PO 20 mg DAILY [place] Administration Furosemide 40 mg 07/22/18 16:00 07/24/18 09:48 Lasix PO 40 mg BID@0900,1600 [place] Administration Insulin Aspart 5 unit 07/19/18 07:30 07/24/18 13:07 Novolog SQ 5 unit AC-TID [place] Administration Insulin Aspart 0 unit 07/18/18 18:19 07/24/18 13:07 Novolog SQ Not Given ACHS [facility] Protocol Insulin Detemir 30 unit 07/22/18 21:30 07/23/18 21:51 Levemir SQ 30 unit HS@2130 [facility] Administration Magnesium Hydroxide 2,400 mg 07/18/18 17:56 Milk Of Magnesia PO DAILY PRN Constipation Sodium Biphosphate/Sodium Phosphate 133 ml 07/18/18 17:56 Fleet Adult RECTAL DAILY PRN Constipation 07/25/18 transferred out of ICU to telemetry unit. Psychiatry evaluation pending. Heart rate remains in the 40s, pacemaker discussed by cardiology, with patient and family. Denies chest pain, palpitations or increasing shortness of breath. Creatinine 1.42, blood sugars better controlled. Objective - Vital Signs Vital signs: Vital Signs Temp 97 F L 07/25/18 16:21 Pulse 45 L 07/25/18 16:21 Resp 18 07/25/18 16:21 BP 141/71 07/25/18 16:21 Pulse Ox 96 07/25/18 16:21 Intake & Output 07/25/18 07/25/18 07/26/18 06:59 18:59 06:59 Intake Total 600 Output Total 1400 200 Balance -1400 400 Weight 100 kg Intake: Oral 600 Output: Urine 1150 200 Post Void Residual 250 Other: Voiding Method Bedside Commode Bedside Commode # Voids 0 1 - Exam GENERAL: Sitting up in chair, alert and oriented x2, no acute distress. HEENT: Pupils are round and equal. EOMI. Normocephalic, atraumatic. Oral mucosa moist CARDIOVASCULAR: S1 and S2 present. Irregular, bradycardic, No murmurs, rubs, or gallops. -PULMONARY: Lungs essentially clear with bilateral bases diminished. ABDOMEN: Soft, nontender, nondistended, positive bowel sounds. No palpable organomegaly. No guarding, no rigidity MUSCULOSKELETAL: No joint swelling or deformity. -EXTREMITIES: No cyanosis, clubbing, . Decreasing lower extremity edema NEUROLOGICAL: Gross neurological examination did not reveal any focal deficits. SKIN: No rashes. - Labs CBC & Chem 7: 07/26/18 05:33 07/26/18 05:33 Labs: Abnormal Lab Results - Last 24 Hours (Table) 07/25/18 07/25/18 07/25/18 Range/Units 04:29 04:29 07:06 MCH 24.7 L (25.0-35.0) pg MCHC 30.1 L (31.0-37.0) g/dL BUN 35 H (7-17) mg/dL Creatinine 1.42 H (0.52-1.04) mg/dL Glucose 121 H (74-99) mg/dL POC Glucose (mg/dL) 120 H (75-99) mg/dL Calcium 11.9 H (8.4-10.2) mg/dL 07/25/18 07/25/18 07/25/18 Range/Units 11:24 17:26 21:00 MCH (25.0-35.0) pg MCHC (31.0-37.0) g/dL BUN (7-17) mg/dL Creatinine (0.52-1.04) mg/dL Glucose (74-99) mg/dL POC Glucose (mg/dL) 232 H 154 H 120 H (75-99) mg/dL Calcium (8.4-10.2) mg/dL Assessment and Plan Assessment: Acute on chronic CHF, diastolic dysfunction, ejection fraction 55-60% with mild LVH Right lower lobe pneumonia with pleural effusion. Chronic atrial fibrillation Chronic kidney disease, stage III Diabetes mellitus History of DVT History of hyperlipidemia Essential hypertension History of right breast cancer status post radiotherapy. History of recurrent falls Patient is DO NOT RESUSCITATE, confirmed with family at bedside Mild to Moderate dementia Plan: Continue on current medication regime ,monitoring and symptomatic treatment. Psychiatry evaluation in progress, recommendations pending. Close monitoring of renal function, electrolytes with repeat labs ordered for a.m. Potential permanent pacemaker as per cardiology.Further recommendations to follow. Subacute rehab at discharge, possibly. The impression and plan of care has been dictated as directed. : I performed a history and examination of this patient, discussed the same with the dictator. I agree with the dictator's note ,documented as a scribe. Any additional findings or plans will be noted.
[2018-07-27 06:19] LABS: Glucose,Whole Blood 89 mg/dL (75-99)
[2018-07-27 06:53] LABS: Basophils % (A) 0 %; Eosinophils # (A) 0.3 k/uL (0-0.7); Eosinophils % (A) 5 %; HCT 36.8 % (34.0-46.0); HGB 10.7 gm/dL (11.4-16.0); Hypochromasia Marked; Lymphocytes # (A) 1.3 k/uL (1.0-4.8); Lymphocytes % (A) 18 %; MCH 23.8 pg (25.0-35.0); MCHC 29.2 g/dL (31.0-37.0); MCV 81.5 fL (80.0-100.0); Mean Platelet Volume 7.5; Monocytes # (A) 0.6 k/uL (0-1.0); Monocytes % (A) 8 %; Neutrophils # (A) 4.5 k/uL (1.3-7.7); Neutrophils % (A) 65 %; Platelet Count 197 k/uL (150-450); RBC 4.52 m/uL (3.80-5.40); RDW 14.8 % (11.5-15.5); WBC 6.9 k/uL (3.8-10.6)
[2018-07-27] MEDS: INSULIN ASPART 100 UNIT/ML 1 ML 10 ML VIAL SQ SCH ×7 (06:59→20:18)
[2018-07-27 07:12] LABS: Calcium 11.8 mg/dL (8.4-10.2); Potassium 4.3 mmol/L (3.5-5.1)
[2018-07-27] MEDS: AMOXIC-POT CLAV 500-125 MG 1 EACH TAB PO SCH ×2 (09:04→20:17)
[2018-07-27] MEDS: amLODIPine 5 MG TAB PO SCH ×2 (09:04→16:58)
[2018-07-27] MEDS: FUROSEMIDE 40 MG TAB PO SCH ×2 (09:04→15:36)
[2018-07-27] MEDS: FAMOTIDINE 20 MG TAB PO SCH (09:04)
[2018-07-27] MEDS: APIXABAN 2.5 MG TABLET PO SCH ×2 (09:04→16:58)
[2018-07-27] MEDS: ANASTROZOLE 1 MG TAB PO SCH (09:05)
[2018-07-27 11:25] LABS: Glucose,Whole Blood 146 mg/dL (75-99)
--- NOTE | 2018-07-27 12:01 | P.PN ---
Subjective Patient is resting comfortably in bed. She denies any dizziness or shortness of breath She remains in atrial fibrillation with heart rates in the mid 40s. She is not in any AV node blocking drugs Breath sounds are reduced audible no rhonchi no crackles Heart sounds are irregular Abdomen soft At lites are normal potassium is normal BUN 34 creatinine 1.4 normal white count hemoglobin 10.7 Impression atrial fibrillation with a slow ventricular response Suggest single-chamber permanent pacemaker next week I did discuss with the patient. She was quite hesitant and resistant to this in the last few days but today she seems to have softer approach to words this suggestion Her legal guardian should be on away and hopefully speak to her and get her set up for either Monday or Monday Objective - Vital Signs Vital signs: Vital Signs Temp 98 F 07/27/18 09:06 Pulse 42 L 07/27/18 09:06 Resp 18 07/27/18 09:11 BP 119/53 07/27/18 09:06 Pulse Ox 98 07/27/18 09:06 Intake & Output 07/26/18 07/27/18 07/27/18 18:59 06:59 18:59 Intake Total 730 240 Output Total 0 600 Balance 730 0 -360 Weight 97.8 kg 102 kg Intake: IV 10 0.9 10 Oral 720 240 Output: Urine 0 600 Other: Voiding Method Bedside Commode Bedside Commode Bedside Commode # Voids 1 0 - Labs CBC & Chem 7: 07/27/18 05:56 07/27/18 05:56 Labs: Abnormal Lab Results - Last 24 Hours (Table) 07/26/18 07/26/18 07/27/18 Range/Units 16:22 20:40 05:56 Hgb 10.7 L (11.4-16.0) gm/dL MCH 23.8 L (25.0-35.0) pg MCHC 29.2 L (31.0-37.0) g/dL Carbon Dioxide (22-30) mmol/L BUN (7-17) mg/dL Creatinine (0.52-1.04) mg/dL POC Glucose (mg/dL) 223 H 137 H (75-99) mg/dL Calcium (8.4-10.2) mg/dL 07/27/18 07/27/18 Range/Units 05:56 11:23 Hgb (11.4-16.0) gm/dL MCH (25.0-35.0) pg MCHC (31.0-37.0) g/dL Carbon Dioxide 33 H (22-30) mmol/L BUN 34 H (7-17) mg/dL Creatinine 1.41 H (0.52-1.04) mg/dL POC Glucose (mg/dL) 146 H (75-99) mg/dL Calcium 11.8 H (8.4-10.2) mg/dL
[2018-07-27 16:04] LABS: Glucose,Whole Blood 181 mg/dL (75-99)
[2018-07-27] MEDS: CYANOCOBALAMIN 500 MCG TAB PO SCH (16:58)
[2018-07-27] MEDS: ASPIRIN 81 MG PO SCH (16:58)
[2018-07-27] MEDS: ASCORBIC ACID 500 MG TAB PO SCH (16:58)
--- NOTE | 2018-07-27 19:32 | PN ---
PROGRESS NOTE I am covering for Dr. Turner. HISTORY OF PRESENT ILLNESS: This 83 -year-old woman admitted with past medical history of multiple medical problems including CHF, acute exacerbation, mental status changes,. Patient also has right lower lobe pneumonia. The patient also has hypercalcemia. The patient also had issues with taking care of the patient and at this time the family thinks that the patient is not capable of making sound decisions which is seconded by the psychiatrist. The patient is scheduled to have the pacemaker next week for atrial fibrillation , slow ventricular response. Patient being closely monitored. PAST MEDICAL HISTORY: Reviewed. REVIEW OF SYSTEMS: CARDIOVASCULAR: No angina or palpitations. RESPIRATORY: As mentioned earlier. GI no nausea or vomiting. : No dysuria. CENTRAL NERVOUS SYSTEM: As mentioned earlier. CURRENT MEDICATIONS ARE: Reviewed and include: 1. Tylenol 650 q.6h. 2. DuoNeb q.i.d. and p.r.n. 3. Norvasc 5 mg p.o. b.i.d. 4. Augmentin 500 mg p.o. b.i.d. 5. Arimidex 1 mg daily. 6. Requip 2.5 mg b.i.d. 7. Vitamin C 500 mg daily. 8. Aspirin 81 mg. 9. Vitamin B12 2.5 mg. 10.Pepcid 20 mg b.i.d. 11.Lasix 40 mg daily. 12.NovoLog scale. 13.Levemir 30 units subcu q.h.s. 14.Milk of Magnesia. 15.Fleets enema. PHYSICAL EXAMINATION: The patient is alert and oriented times three. Pulse is 42, blood pressure 130/ 42, respiration 18, temperature 97.4, pulse ox 94% on room air. HEENT is conjunctivae normal. NECK is no jugular venous distention. CARDIOVASCULAR: S1, S2 muffled. RESPIRATORY: Breath sounds diminished in the bases. Bilateral scattered rhonchi and crackles. ABDOMEN: Soft, nontender. Legs are no edema. No swelling. Nervous system: No focal deficits. LABS: At this time shows WBC 6.2, hemoglobin 10.7, creatinine is 1.41. ASSESSMENT: 1. Congestive heart failure acute exacerbation with acute on chronic diastolic dysfunction, ejection fraction 50-60 percent. 2. Right lower lobe pneumonia with pleural effusion possibly gram-negative. 3. Atrial fibrillation with bradycardia for permanent pacemaker. 4. Change in mental status, metabolic encephalopathy, acute metabolic acidosis, multifactorial. 5. Chronic kidney disease stage III. 6. Hypercalcemia. 7. Diabetes mellitus type 2. 8. History of deep vein thrombosis. 9. History of hyperlipidemia. 10.History of hypertension. 11.History of right breast cancer status post radiation therapy. 12.Mild to moderate dementia. 13.NO CODE, NO CPR, NO VENT. RECOMMENDATIONS AND DISCUSSION: In this 83-year-old woman who presented with multiple complex medical issues, we will monitor the patient closely, continue the current medications, management and symptomatic treatment. Otherwise, prognosis guarded because of multiple complex medical issues. Permanent pacemaker Monday. As mentioned earlier, the patient is incapable of making a sound decision per discussion with psychiatrist, the patient's primary physician, Dr. Turner, and I would recommend the POA to explore the possibility of ECF rehab at this time. Discussed the case with the social media senior associate. Further recommendations to follow. ALAN / NORBERTO: [id number] / MTDD
--- NOTE | 2018-07-27 19:50 | CT ---
EXAMINATION TYPE: CT brain wo con DATE OF EXAM: 07/27/2018 COMPARISON: 06/26/2018 HISTORY: Confusion. CT DLP: 1060.4 mGycm Automated exposure control for dose reduction was used. FINDINGS: There is cerebral cortical atrophy. There is no mass effect nor midline shift. There is no sign of in tracranial hemorrhage. The calvarium is intact. IMPRESSION: MODERATE DIFFUSE ATROPHY. NO ACUTE INTRACRANIAL ABNORMALITY. NO CHANGE.
[2018-07-27 20:26] LABS: Glucose,Whole Blood 159 mg/dL (75-99)
--- NOTE | 2018-07-27 20:52 | P.PN ---
Subjective Progress Note Date: 07/27/18 Progress note being dictated for Dr. Rock. 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 Patient follow-up with Dr. Peck. History of fall and rhabdomyolysis and acute kidney injury. Chronic kidney disease stage III. Presents because of dyspnea. pt herself is poor historian , information is taken with the help of family at bed side after pt gave approval for that. Patient apparently presents because of dyspnea of 1-2 days duration. She was at [facility] rehab, recently discharged from [facility] for metabolic encephalopathy and UTI. Patient was supposed to be discharged from rehab to home tomorrow however over the last 1 or 2 days patient was noticed to have increasing swelling of his abdominal and both legs, associated with dyspnea or phlegm. No chest pain. In the emergency room patient has chest x-ray : right lower lobe pneumonia with pleural effusion. And metastatic disease to the bone. His CBC showing WBC of 8.8. Hemoglobin 10.5. Her BMP was unremarkable except for with creatinine 1.5 which is at his baseline, baseline creatinine is 1.2 to 1.8. Patient was started on Levaquin and Zosyn and Lasix 40 mg twice a day Patient suspected to have fluid overload and heart failure, patient does not have history of heart failure. We'll order echo 07/19/2018 Patient feels better and she stated that her breathing is improving. She still have bilateral leg swelling. Cardiology input is appreciated, they recommended TSH and Lasix 40 mg twice a day. Patient remains in the ICU for overflow bed. Echo is still pending 07/20/2018 Patient looks his stable compared to yesterday she is in the ICU for overflow bed. Bilateral leg swelling slightly improving. She last about 1 kg from her weight. Patient remains on diuresis. Cardiology follow-up is appreciated and they recommended to switch to oral Lasix in the next 24-48 hours as 40 mg twice daily, compared to once daily at home. 07/21/2018 Patient feels generally the same, she remains in the ICU for overflow bed. She denies chest pain or dyspnea. Her leg swelling is coming down but it's has wrapped. Her weight today is up from 100 kg to 103 kg. Patient remains on IV Lasix 40 mg twice a day and cartilage team are planning to switch her to oral dose later on. I talked to the patient's accordance the recommendation of the physical therapy she needs subacute rehab and she agrees to it. Patient was not on home oxygen. She saw bradycardic. However his blood pressure is stable. Creatinine stable at 1.4. Sugar controlled. Cardiology are following the patient. She is currently on Augmentin. date of service : 07/22/2018 pt is seen and examined by me at bed side, she still in icu but as overflow bed , pt with no denies chest pain or dyspnea, as per pt she continue to improve, she has less leg swelling , family educator follow up is appreciated and she was switched to oral lasix today, pt has asymptomatic bradycardia and cardiology are following the case , blood pressure is stable, her weight looks stable as well. pt most likely is going to rehab after discharge. 07/22/18 Selective overflow. Atrial fib- flutter, heart rates currently in the 40s. Breathing continues to improve with decreasing leg edema. Patient recently discharged from our with subacute rehab., and currently refusing rehab. once medically stable for discharge.Creatinine 1.42. Potassium 4.7. Losartan added to med regime as per cardiology.Denies lightheadedness dizziness or focal deficits. Denies chest pain, palpitations or increased shortness of breath. Complete Review of systems unable to obtain as patient is confused, now angry/ agitated, as subacute rehab. brought up. Active Medications Acetaminophen (Tylenol Tab) 650 mg PO Q4H PRN PRN Reason: Pain Albuterol/Ipratropium (Duoneb 0.5 Mg-3 Mg/3 Ml Soln) 3 ml INHALATION RT-QID PRN PRN Reason: Shortness Of Breath Or Wheezing Amlodipine Besylate (Norvasc) 5 mg PO BID@0800,1700 [facility] Last Admin: 07/23/18 16:51 Dose: 5 mg Amoxicillin/Clavulanate Potassium (Augmentin 500-125 Mg) 1 each PO BID [facility] Last Admin: 07/23/18 08:55 Dose: 1 each Anastrozole (Arimidex) 1 mg PO DAILY@0800 [facility] Last Admin: 07/23/18 08:55 Dose: 1 mg Apixaban (Eliquis) 2.5 mg PO BID@0800,1700 [facility] Last Admin: 07/23/18 16:51 Dose: 2.5 mg Ascorbic Acid (Vitamin C) 500 mg PO DAILY@1700 [facility] Last Admin: 07/23/18 16:51 Dose: 500 mg Aspirin (Aspirin) 81 mg PO DAILY@1700 [facility] Last Admin: 07/23/18 16:51 Dose: 81 mg Bisacodyl (Dulcolax) 10 mg RECTAL DAILY PRN PRN Reason: Constipation Cyanocobalamin (Vitamin B-12) 2,500 mcg PO DAILY@1700 [facility] Last Admin: 07/23/18 16:51 Dose: 2,500 mcg Famotidine (Pepcid) 20 mg PO DAILY [facility] Last Admin: 07/23/18 08:54 Dose: 20 mg Furosemide (Lasix) 40 mg PO BID@0900,1600 [facility] Last Admin: 07/23/18 16:51 Dose: 40 mg Insulin Aspart (Novolog) 5 unit SQ AC-TID [facility] Last Admin: 07/23/18 17:35 Dose: 5 unit Insulin Aspart (Novolog) 0 unit SQ ACHS [facility]; Protocol Last Admin: 07/23/18 17:35 Dose: 2 unit Insulin Detemir (Levemir) 30 unit SQ HS@2130 [facility] Last Admin: 07/22/18 21:53 Dose: 30 unit Magnesium Hydroxide (Milk Of Magnesia) 2,400 mg PO DAILY PRN PRN Reason: Constipation Sodium Biphosphate/Sodium Phosphate (Fleet Adult) 133 ml RECTAL DAILY PRN PRN Reason: Constipation 07/24/18 sitting up in bed, breathing continues to improve. Currently not agitated at this time, pleasantly confused. More cooperative today, but complains of increased fatigue. Potassium 4.5, creatinine 1.33. CONSTITUTIONAL: Positive fatigue. HEENT: No recent visual problems or hearing problems. Denied any sore throat. CARDIOVASCULAR: No chest pain, no palpitations, no syncope. PULMONARY: No increased shortness of breath, no cough, no hemoptysis. GASTROINTESTINAL: No diarrhea, no nausea, no vomiting, no abdominal pain. NEUROLOGICAL: No headaches, no weakness, no numbness. HEMATOLOGICAL: Denies any bleeding or petechiae. GENITOURINARY: Denies any burning micturition, frequency, or urgency. MUSCULOSKELETAL/RHEUMATOLOGICAL: Denies any joint pain, swelling, or any muscle pain. ENDOCRINE: Denies any polyuria or polydipsia. Active Medications Generic Name Dose Route Start Last Admin Trade Name Nasrin PRN Reason Stop Dose Admin Acetaminophen 650 mg 07/18/18 17:56 07/23/18 21:51 Tylenol Tab PO 650 mg Q4H PRN Administration Pain Albuterol/Ipratropium 3 ml 07/18/18 10:31 Duoneb 0.5 Mg-3 Mg/3 Ml Soln INHALATION RT-QID PRN Shortness Of Breath Or Wheezing Amlodipine Besylate 5 mg 07/18/18 18:07 07/24/18 09:47 Norvasc PO 5 mg BID@0800,1700 [place] Administration Amoxicillin/Clavulanate Potassium 1 each 07/21/18 09:00 07/24/18 09:48 Augmentin 500-125 Mg PO 1 each BID [place] Administration Anastrozole 1 mg 07/19/18 08:00 07/24/18 09:48 Arimidex PO 1 mg DAILY@0800 [place] Administration Apixaban 2.5 mg 07/19/18 08:00 07/24/18 09:47 Eliquis PO 2.5 mg BID@0800,1700 [place] Administration Ascorbic Acid 500 mg 07/19/18 17:00 07/23/18 16:51 Vitamin C PO 500 mg DAILY@1700 [place] Administration Aspirin 81 mg 07/19/18 17:00 07/23/18 16:51 Aspirin PO 81 mg DAILY@1700 [place] Administration Bisacodyl 10 mg 07/18/18 17:56 Dulcolax RECTAL DAILY PRN Constipation Cyanocobalamin 2,500 mcg 07/19/18 17:00 07/23/18 16:51 Vitamin B-12 PO 2,500 mcg DAILY@1700 [place] Administration Famotidine 20 mg 07/20/18 09:00 07/24/18 09:48 Pepcid PO 20 mg DAILY [place] Administration Furosemide 40 mg 07/22/18 16:00 07/24/18 09:48 Lasix PO 40 mg BID@0900,1600 [place] Administration Insulin Aspart 5 unit 07/19/18 07:30 07/24/18 13:07 Novolog SQ 5 unit AC-TID [place] Administration Insulin Aspart 0 unit 07/18/18 18:19 07/24/18 13:07 Novolog SQ Not Given ACHS [facility] Protocol Insulin Detemir 30 unit 07/22/18 21:30 07/23/18 21:51 Levemir SQ 30 unit HS@2130 [facility] Administration Magnesium Hydroxide 2,400 mg 07/18/18 17:56 Milk Of Magnesia PO DAILY PRN Constipation Sodium Biphosphate/Sodium Phosphate 133 ml 07/18/18 17:56 Fleet Adult RECTAL DAILY PRN Constipation 07/25/18 transferred out of ICU to telemetry unit. Psychiatry evaluation pending. Heart rate remains in the 40s, pacemaker discussed by cardiology, with patient and family. Denies chest pain, palpitations or increasing shortness of breath. Creatinine 1.42, blood sugars better controlled. 07/26/2018 sitting up in chair, eating lunch with no acute distress. Telemetry atrial fibrillation with heart rate in the 40s, asymptomatic at rest. Creatinine 1.48. Maintaining O2 sat of 96% on 2 L nasal cannula. Objective - Vital Signs Vital signs: Vital Signs Temp 97.5 F L 07/26/18 19:39 Pulse 47 L 07/26/18 19:39 Resp 18 07/26/18 19:39 BP 144/63 07/26/18 19:39 Pulse Ox 98 07/26/18 19:39 Intake & Output 07/26/18 07/26/18 07/27/18 06:59 18:59 06:59 Intake Total 20 730 Balance 20 730 Weight 97.8 kg 97.8 kg Intake: IV 20 10 0.9 20 10 Oral 720 Other: Voiding Method Bedside Commode Bedside Commode # Voids 2 1 # Bowel Movements 1 - Exam GENERAL: Sitting up in chair, alert and oriented x2, no acute distress. Cooperative HEENT: Pupils are round and equal. EOMI. Normocephalic, atraumatic. Oral mucosa moist CARDIOVASCULAR: S1 and S2 present. Irregular, bradycardic, No murmurs, rubs, or gallops. -PULMONARY: Lungs essentially clear with bilateral bases diminished. ABDOMEN: Soft, nontender, nondistended, positive bowel sounds. No palpable organomegaly. No guarding, no rigidity MUSCULOSKELETAL: No joint swelling or deformity. -EXTREMITIES: No cyanosis, clubbing, . Decreasing lower extremity edema NEUROLOGICAL: Gross neurological examination did not reveal any focal deficits. SKIN: No rashes. - Labs CBC & Chem 7: 07/27/18 05:56 07/27/18 05:56 Labs: Abnormal Lab Results - Last 24 Hours (Table) 07/26/18 07/26/18 07/26/18 Range/Units 05:33 05:33 05:39 MCH 24.7 L (25.0-35.0) pg MCHC 30.5 L (31.0-37.0) g/dL Carbon Dioxide 33 H (22-30) mmol/L BUN 35 H (7-17) mg/dL Creatinine 1.48 H (0.52-1.04) mg/dL Glucose 138 H (74-99) mg/dL POC Glucose (mg/dL) 135 H (75-99) mg/dL Calcium 12.0 H (8.4-10.2) mg/dL 07/26/18 07/26/18 07/26/18 Range/Units 11:23 16:22 20:40 MCH (25.0-35.0) pg MCHC (31.0-37.0) g/dL Carbon Dioxide (22-30) mmol/L BUN (7-17) mg/dL Creatinine (0.52-1.04) mg/dL Glucose (74-99) mg/dL POC Glucose (mg/dL) 148 H 223 H 137 H (75-99) mg/dL Calcium (8.4-10.2) mg/dL Assessment and Plan Assessment: Acute on chronic CHF, diastolic dysfunction, ejection fraction 55-60% with mild LVH Right lower lobe pneumonia with pleural effusion. Chronic atrial fibrillation Chronic kidney disease, stage III Diabetes mellitus History of DVT History of hyperlipidemia Essential hypertension History of right breast cancer status post radiotherapy. History of recurrent falls Patient is DO NOT RESUSCITATE, confirmed with family at bedside Mild to Moderate dementia Plan: Continue on current medication regime ,monitoring and symptomatic treatment. Potential permanent pacemaker as per cardiology. Close monitoring of renal function, electrolytes with repeat labs ordered for a.m. Further recommendations to follow. The impression and plan of care has been dictated as directed. : I performed a history and examination of this patient, discussed the same with the dictator. I agree with the dictator's note ,documented as a scribe. Any additional findings or plans will be noted.
[2018-07-27] MEDS: INSULIN DETEMIR 100 UNIT/ML 10 ML VIAL SQ SCH (21:07)
[2018-07-27] MEDS: SODIUM CHLORIDE 0.9% 1,000 ML IV SCH (21:08)
[2018-07-28 06:15] LABS: Glucose,Whole Blood 108 mg/dL (75-99)
[2018-07-28] MEDS: SODIUM CHLORIDE 0.9% 1,000 ML IV SCH ×2 (06:26→17:05)
[2018-07-28] MEDS: INSULIN ASPART 100 UNIT/ML 1 ML 10 ML VIAL SQ SCH ×7 (06:26→20:43)
[2018-07-28 06:45] LABS: Basophils % (A) 0 %; Eosinophils # (A) 0.2 k/uL (0-0.7); Eosinophils % (A) 4 %; HCT 36.7 % (34.0-46.0); HGB 10.8 gm/dL (11.4-16.0); Hypochromasia Moderate; Lymphocytes # (A) 1.2 k/uL (1.0-4.8); Lymphocytes % (A) 18 %; MCHC 29.4 g/dL (31.0-37.0); MCV 81.4 fL (80.0-100.0); Mean Platelet Volume 7.4; Monocytes # (A) 0.5 k/uL (0-1.0); Monocytes % (A) 8 %; Neutrophils # (A) 4.2 k/uL (1.3-7.7); Neutrophils % (A) 66 %; Platelet Count 192 k/uL (150-450); RBC 4.51 m/uL (3.80-5.40); RDW 14.8 % (11.5-15.5); WBC 6.4 k/uL (3.8-10.6)
[2018-07-28 07:04] LABS: Ionized Calcium 6.5 mg/dL (4.5-5.3)
[2018-07-28 07:06] LABS: Calcium 11.7 mg/dL (8.4-10.2); Phosphorus 4.1 mg/dL (2.5-4.5); Potassium 4.2 mmol/L (3.5-5.1)
--- NOTE | 2018-07-28 08:50 | P.NPCON ---
History of Present Illness - Reason for Consult Consult date: 07/28/18 acute renal failure - Chief Complaint hypercalemia and chyna - History of Present Illness This is an 83-year-old female seen in consultation because of hypercalcemia, acute kidney injury. She is known with Ca of the breast with skeletal metastases and had hypercalcemia in the past. She was admitted on 07/18/2018 because of shortness of breath. A chest x-ray was suggestive of mild congestive heart failure. On admission her calcium was normal range but slowly has been going off and currently is 11.7 today. ION calcium is 6.5 Currently on examination she is able to answers some questions but has poor memory. She denies any complaints cc her appetite is good. Fever chills cough shortness of breath nausea vomiting diarrhea. Her medications do not contain any calcium or vitamin D. History of present illness; This is a pleasant 83 years old female with past medical history of diabetes mellitus, DVT, hyperlipidemia, hypertension, memory impairment, atrial fibrillation, right breast cancer in 2013 with metastasis to the spine status post radiotherapy. Patient follow-up with Dr. Peck. History of fall and rhabdomyolysis and acute kidney injury. Chronic kidney disease stage III. Presents because of dyspnea. pt herself is poor historian , information is taken with the help of family at bed side after pt gave approval for that. Patient apparently presents because of dyspnea of 1-2 days duration. She was at [facility] rehab, recently discharged from [facility] for metabolic encephalopathy and UTI. Patient was supposed to be discharged from rehab to home tomorrow however over the last 1 or 2 days patient was noticed to have increasing swelling of his abdominal and both legs, associated with dyspnea or phlegm. No chest pain. In the emergency room patient has chest x-ray : right lower lobe pneumonia with pleural effusion. And metastatic disease to the bone. His CBC showing WBC of 8.8. Hemoglobin 10.5. Her BMP was unremarkable except for with creatinine 1.5 which is at his baseline, baseline creatinine is 1.2 to 1.8. Patient was started on Levaquin and Zosyn and Lasix 40 mg twice a day Patient suspected to have fluid overload and heart failure, patient does not have history of heart failure. We'll order echo Past Medical History Past Medical History: Atrial Flutter, Cancer, Diabetes Mellitus, Deep Vein Thrombosis (DVT), Eye Disorder, Hyperlipidemia, Hypertension, Memory Impairment , Renal Disease Additional Past Medical History / Comment(s): hx. rt breast cancer-2014 has mets to spine(sx and radiation tx and currently reciving hormone blockers, metastasis to spine-gets tx.hx of anemia requiring blood transfusion, DVT leg years ago, uses walker, bone CA-sees dr hu, kidney stones(sx), uti's/ urosepsis/bacteremia,ad foot fx-no sx just casted. 2016 fall/rhabomyolosis/ akf. family stated pt has kidney disease but refused to seek tx per specilaist" History of Any Multi-Drug Resistant Organisms: None Reported Past Surgical History: Breast Surgery, Cholecystectomy, Heart Catheterization, Tubal Ligation Additional Past Surgical History / Comment(s): right mastectomy, cataracts removed, excision of lesion rt cheek, steroid inj in past for heel spur, lithotripsy Past Anesthesia/Blood Transfusion Reactions: No Reported Reaction Smoking Status: Never smoker - Past Family History Mother Family Medical History: Diabetes Mellitus Father Family Medical History: Congestive Heart Failure (CHF) Medications and Allergies Home Medications Medication Instructions Recorded Confirmed Type Anastrozole [Arimidex] 1 mg PO DAILY@0800 05/14/15 07/18/18 History Aspirin [Adult Low Dose Aspirin EC] 81 mg PO DAILY@1700 10/06/17 07/18/18 History Furosemide [Lasix] 40 mg PO DAILY@0800 10/06/17 07/18/18 History Apixaban [Eliquis] 2.5 mg PO BID@0800,1700 06/26/18 07/18/18 History Ascorbic Acid [Vitamin C] 500 mg PO DAILY@1700 06/26/18 07/18/18 History Cyanocobalamin (Vitamin B-12) 2,500 mcg PO DAILY@1700 06/26/18 07/18/18 History [Vitamin B12] Acetaminophen Tab [Tylenol Tab] 650 mg PO Q4H PRN 07/18/18 07/18/18 History Bisacodyl [Dulcolax] 10 mg RECTAL DAILY PRN 07/18/18 07/18/18 History Glucerna Shake 1 can PO DAILY@2100 07/18/18 07/18/18 History Insulin Aspart [NovoLOG 9 unit SQ AC-TID 07/18/18 07/18/18 History (formulary)] Insulin Detemir [Levemir] 38 unit SQ HS@2130 07/18/18 07/18/18 History Magnesium Hydroxide [Milk of 2,400 mg PO DAILY PRN 07/18/18 07/18/18 History Magnesia] Na Phos,M-B/Na Phos,Di-Ba [Fleet 133 ml RECTAL DAILY PRN 07/18/18 07/18/18 History Adult] amLODIPine [Norvasc] 5 mg PO BID@0800,1700 07/18/18 07/18/18 History Allergies Allergy/AdvReac Type Severity Reaction Status Date / Time codeine Allergy Abdominal Verified 07/18/18 09:35 Pain Physical Exam Vitals: Vital Signs Temp Pulse Resp BP Pulse Ox 07/28/18 07:52 99 F 46 L 18 126/61 90 L 07/28/18 04:00 98 F 49 L 18 127/54 96 07/27/18 23:29 50 L 18 132/65 95 07/27/18 20:00 97.4 F L 46 L 18 136/61 93 L 07/27/18 15:26 97.5 F L 46 L 18 135/42 94 L 07/27/18 12:00 44 L 16 140/50 96 07/27/18 09:11 18 07/27/18 09:06 98 F 42 L 18 119/53 98 Intake and Output 07/27/18 07/28/18 07/28/18 22:59 06:59 14:59 Intake Total 693 673 3612 Output Total 1600 700 Balance -1378 -260 1040 Intake: IV 200 800 0.9 200 800 Oral 222 240 240 Output: Urine 1600 700 Uretheral (Alfredo) 800 700 Other: Voiding Method Toilet Toilet # Voids 1 Weight 101 kg On examination awake alert but unable to answer many questions. HEENT exam no JVP neck is supple no facial asymmetry Lungs are clear to auscultation fair air entry bilaterally Heart sounds are unremarkable for any murmur rub gallop Abdomen soft nontender no masses felt Extremity exam was trace edema Neurologically as mentioned about poor memory follows commands is cheerful. No focal motor deficit. Results - Lab Results Most recent lab results Calcium 11.7 mg/dL (8.4-10.2) H 07/28/18 05:50 Phosphorus 4.1 mg/dL (2.5-4.5) 07/28/18 05:50 Magnesium 2.2 mg/dL (1.6-2.3) 07/24/18 04:30 07/28/18 05:50 07/28/18 05:50 Assessment and Plan Assessment: Impression 1. 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 Calcium was normal at the time of admission on 07/18/2018 a week ago but came up during this hospitalization slowly to 11.7 with a ionized calcium 6.5. 2. Chronic kidney disease creatinine has been 1.2-2.43 over the last few years. Etiology likely nephrosclerosis. 3. Diabetes mellitus. No significant proteinuria to suggest diabetic nephropathy but cannot be ruled out completely. 4. History of DVT. 5. History of memory impairment. 6. History of breast cancer 2013 with metastatic disease on Arimidex 7. History of bacteremia in the recent past Recommendation 1. I have started on IV normal saline last night 100 mL an hour. This has not changed her calcium in fact it has gone up. 2. Because of this I'll give her 2 mg of Zometa IV piggyback slowly. 3. Monitor labs and maintain IV fluids for right now. Watch for congestive heart failure. Thank you for this consultation we'll continue to follow.
[2018-07-28] MEDS: FUROSEMIDE 40 MG TAB PO SCH ×2 (09:19→17:05)
[2018-07-28] MEDS: AMOXIC-POT CLAV 500-125 MG 1 EACH TAB PO SCH (09:19)
[2018-07-28] MEDS: amLODIPine 5 MG TAB PO SCH ×2 (09:19→17:05)
[2018-07-28] MEDS: APIXABAN 2.5 MG TABLET PO SCH ×2 (09:19→17:05)
[2018-07-28] MEDS: ANASTROZOLE 1 MG TAB PO SCH (09:19)
[2018-07-28] MEDS: FAMOTIDINE 20 MG TAB PO SCH (09:20)
[2018-07-28] MEDS ORDERED: ZOLEDRONIC ACID 2 MG in SODIUM CHLORIDE 0.9% 100 ML IV ONE (10:00)
[2018-07-28 11:15] LABS: Glucose,Whole Blood 218 mg/dL (75-99)
--- NOTE | 2018-07-28 15:26 | P.PN ---
Subjective Progress Note Date: 07/28/18 This is a pleasant 83 years old female with past medical history of diabetes mellitus, DVT, hyperlipidemia, hypertension, memory impairment, atrial fibrillation, right breast cancer in 2013 with metastasis to the spine status post radiotherapy. Patient follow-up with Dr. Peck. History of fall and rhabdomyolysis and acute kidney injury. Chronic kidney disease stage III. Presents because of dyspnea. pt herself is poor historian , information is taken with the help of family at bed side after pt gave approval for that. Patient apparently presents because of dyspnea of 1-2 days duration. Cardiology consultation was initially requested because of atrial fibrillation with bradycardia. Patient also was in some mild congestive heart failure, diastolic, acute on chronic. White blood cell count 6.8, hemoglobin 11.9, platelet count 197. Sodium 139, potassium 4.7, BUN 35, creatinine 1.4. Blood pressure 142/50 with a heart rate in the 40s, 96% on 2 L of oxygen. Breathing has improved significantly. TSH is normal. 07/28/2018 Patient was seen and examined this morning, overall doing well. Continues to have a heart rate in the 40s. Denies any dizziness or lightheadedness at present. Objective - Vital Signs Vital signs: Vital Signs Temp 98.1 F 07/28/18 14:58 Pulse 43 L 07/28/18 14:58 Resp 18 07/28/18 14:58 BP 141/57 07/28/18 14:58 Pulse Ox 92 L 07/28/18 14:58 Intake & Output 07/27/18 07/28/18 07/28/18 18:59 06:59 18:59 Intake Total 665 756 0941 Output Total 1999 1500 200 Balance -1538 -1060 1380 Weight 101 kg Intake: IV 200 1100 0.9 200 1100 Oral 462 240 480 Output: Urine 1999 1500 200 Uretheral (Alfredo) 1500 Other: Voiding Method Toilet Toilet # Voids 1 - Exam PHYSICAL EXAMINATION: GENERAL: 83-year-old female in no acute distress at the time of my examination HEENT: Head is atraumatic, normocephalic. Pupils equal, round. Sclera anicteric. Conjunctiva are clear. Mucous membranes of the mouth are moist. Neck is supple. There is no elevated jugular venous pressure. No carotid bruit is heard. HEART EXAMINATION: Heart S1 and S2 irregularly irregular CHEST EXAMINATION: Lungs are clear to auscultation and precussion. No chest wall tenderness is noted on palpation or with deep breathing. ABDOMEN: Soft, nontender. Bowel sounds are heard. No organomegaly noted. EXTREMITIES: 2+ peripheral pulses with no evidence of peripheral edema and no calf tenderness noted. NEUROLOGIC patient is awake, alert and oriented 3 . . - Labs CBC & Chem 7: 07/28/18 05:50 07/28/18 05:50 Labs: Abnormal Lab Results - Last 24 Hours (Table) 07/27/18 07/27/18 07/28/18 Range/Units 16:02 20:09 05:50 Hgb 10.8 L (11.4-16.0) gm/dL MCH 24.0 L (25.0-35.0) pg MCHC 29.4 L (31.0-37.0) g/dL Carbon Dioxide (22-30) mmol/L BUN (7-17) mg/dL Creatinine (0.52-1.04) mg/dL Glucose (74-99) mg/dL POC Glucose (mg/dL) 181 H 159 H (75-99) mg/dL Calcium (8.4-10.2) mg/dL Ionized Calcium Tracey (4.5-5.3) mg/dL PTH Intact (14.0-72.0) pg/mL 07/28/18 07/28/18 07/28/18 Range/Units 05:50 05:50 06:14 Hgb (11.4-16.0) gm/dL MCH (25.0-35.0) pg MCHC (31.0-37.0) g/dL Carbon Dioxide 33 H (22-30) mmol/L BUN 36 H (7-17) mg/dL Creatinine 1.47 H (0.52-1.04) mg/dL Glucose 109 H (74-99) mg/dL POC Glucose (mg/dL) 108 H (75-99) mg/dL Calcium 11.7 H (8.4-10.2) mg/dL Ionized Calcium Tracey 6.5 H* (4.5-5.3) mg/dL PTH Intact 171.3 H (14.0-72.0) pg/mL 07/28/18 Range/Units 11:14 Hgb (11.4-16.0) gm/dL MCH (25.0-35.0) pg MCHC (31.0-37.0) g/dL Carbon Dioxide (22-30) mmol/L BUN (7-17) mg/dL Creatinine (0.52-1.04) mg/dL Glucose (74-99) mg/dL POC Glucose (mg/dL) 218 H (75-99) mg/dL Calcium (8.4-10.2) mg/dL Ionized Calcium Tracey (4.5-5.3) mg/dL PTH Intact (14.0-72.0) pg/mL Assessment and Plan Plan: Assessment and plan #1 Acute on chronic CHF, diastolic dysfunction, ejection fraction 55-60% with mild LVH #2 Right lower lobe pneumonia with pleural effusion. #3 Chronic atrial fibrillation, bradycardic #4 Chronic kidney disease, stage III #5 Diabetes mellitus #6 History of DVT #7 History of hyperlipidemia #8 Essential hypertension #9 History of right breast cancer status post radiotherapy. History of recurrent falls Plan From cardiology's perspective, plan for possible pacemaker implantation on Monday or Monday. DNP note has been reviewed, I agree with a documented findings and plan of care. Patient was seen and examined.
[2018-07-28 16:26] LABS: Glucose,Whole Blood 111 mg/dL (75-99)
[2018-07-28] MEDS: ASCORBIC ACID 500 MG TAB PO SCH (17:05)
[2018-07-28] MEDS: ASPIRIN 81 MG PO SCH (17:05)
[2018-07-28] MEDS: CYANOCOBALAMIN 500 MCG TAB PO SCH (17:05)
[2018-07-28 20:05] LABS: Glucose,Whole Blood 257 mg/dL (75-99)
[2018-07-28] MEDS: INSULIN DETEMIR 100 UNIT/ML 10 ML VIAL SQ SCH (20:44)
--- NOTE | 2018-07-28 22:27 | PN ---
PROGRESS NOTE I am covering for Dr. Turner. This 83-year-old woman who was admitted with multiple medical problems including CHF acute exacerbation with change in mental status. Patient also had right lower lobe pneumonia. The patient also had hypercalcemia. The patient is also noted to have atrial fibrillation with bradycardia. Pacemaker implantation was recommended on Monday. Multiple consultants including Cardiology following the patient closely. Nephrology has seen the patient for hypercalcemia which was thought secondary to metastasis and CA of breast. No chest pain. No palpitations. No fever. EXAM: Alert and oriented x2. Pulse 43, blood pressure 141/57. Respiration 18. Temperature 98.2, pulse ox 98% on room air. HEENT: Conjunctivae normal. NECK:No jugular venous distention. CARDIOVASCULAR: S1, S2 muffled. RESPIRATORY: Breath sounds diminished in the bases. A few scattered rhonchi and crackles. Abdomen is soft, nontender. Legs are no edema, no swelling. LAB STUDIES: WBC 10.8 and creatinine is 1.47. Calcium 11.7, 6.5. ASSESSMENT: 1. Congestive heart failure acute exacerbation with acute on chronic diastolic dysfunction, ejection fraction 50-60 percent. 2. Right lower lobe pneumonia with pleural effusion possibly gram-negative. 3. Atrial fibrillation with bradycardia for permanent pacemaker. 4. Change in mental status metabolic encephalopathy with acute metabolic acidosis, multifactorial. 5. Chronic kidney disease stage III. 6. Chronic hypercalcemia possibly from metastatic breast cancer. 7. Diabetes mellitus type 2. 8. History of deep vein thrombosis. 9. Hyperlipidemia. 10.Hypertension. 11.History of right breast cancer status post radiation therapy. 12.Mild to moderate dementia. 13.NO CODE, NO CPR, NO VENT. RECOMMENDATIONS AND DISCUSSION: I recommend to continue current medications and monitoring, symptomatic treatment. Otherwise, pacemaker implantation. IV normal saline was initiated by Dr. Munguia. The patient also was given Zometa. Otherwise, I would also recommend continue to monitor. Pacemaker implantation. Dr. Turner will follow the patient on Monday. Further recommendations to follow. MMODL / IJN: [id number] / MTDD
[2018-07-29] MEDS: SODIUM CHLORIDE 0.9% 1,000 ML IV SCH ×2 (03:25→14:29)
[2018-07-29 05:51] LABS: Glucose,Whole Blood 155 mg/dL (75-99)
[2018-07-29 06:54] LABS: Basophils % (A) 0 %; Eosinophils # (A) 0.3 k/uL (0-0.7); Eosinophils % (A) 4 %; HCT 36.5 % (34.0-46.0); HGB 11.3 gm/dL (11.4-16.0); Hypochromasia Slight; Lymphocytes # (A) 1.3 k/uL (1.0-4.8); Lymphocytes % (A) 18 %; MCH 24.9 pg (25.0-35.0); MCHC 31.1 g/dL (31.0-37.0); MCV 80.1 fL (80.0-100.0); Mean Platelet Volume 8.2; Monocytes # (A) 0.6 k/uL (0-1.0); Monocytes % (A) 8 %; Neutrophils # (A) 4.9 k/uL (1.3-7.7); Neutrophils % (A) 68 %; Platelet Count 135 k/uL (150-450); RBC 4.55 m/uL (3.80-5.40); RDW 15.2 % (11.5-15.5); WBC 7.2 k/uL (3.8-10.6)
[2018-07-29] MEDS: INSULIN ASPART 100 UNIT/ML 1 ML 10 ML VIAL SQ SCH ×7 (07:05→21:06)
[2018-07-29 07:57] LABS: Calcium 10.4 mg/dL (8.4-10.2); Potassium 4.7 mmol/L (3.5-5.1)
[2018-07-29] MEDS: FAMOTIDINE 20 MG TAB PO SCH (08:24)
[2018-07-29] MEDS: ANASTROZOLE 1 MG TAB PO SCH (08:24)
[2018-07-29] MEDS: amLODIPine 5 MG TAB PO SCH ×2 (08:24→16:50)
[2018-07-29] MEDS: APIXABAN 2.5 MG TABLET PO SCH (08:24)
[2018-07-29] MEDS: FUROSEMIDE 40 MG TAB PO SCH ×2 (08:24→16:50)
--- NOTE | 2018-07-29 09:23 | P.PN ---
Subjective Progress Note Date: 07/29/18 Principal diagnosis: This is an 83-year-old female seen in consultation because of hypercalcemia, acute kidney injury.Provisional etiological diagnosis is from metastatic carcinoma. She was given 2 mg Zometa and IV NS and herCa is better today at 10.4, and has good UO, about 1500 cc per 12 hrs. She is known with Ca of the breast with skeletal metastases and had hypercalcemia in the past. She was admitted on 07/18/2018 because of shortness of breath. A chest x-ray was suggestive of mild congestive heart failure. On admission her calcium was normal range but slowly has been going off and currently is 11.7 today. ION calcium is 6.5 Currently on examination she is able to answers some questions but has poor memory. She denies any complaints cc her appetite is good. Fever chills cough shortness of breath nausea vomiting diarrhea. Her medications do not contain any calcium or vitamin D. History of present illness; This is a pleasant 83 years old female with past medical history of diabetes mellitus, DVT, hyperlipidemia, hypertension, memory impairment, atrial fibrillation, right breast cancer in 2013 with metastasis to the spine status post radiotherapy. Patient follow-up with Dr. Peck. History of fall and rhabdomyolysis and acute kidney injury. Chronic kidney disease stage III. Presents because of dyspnea. pt herself is poor historian , information is taken with the help of family at bed side after pt gave approval for that. Patient apparently presents because of dyspnea of 1-2 days duration. She was at [facility] re[facility], recently discharged from [facility] for metabolic encephalopathy and UTI. Patient was supposed to be discharged from rehab to home tomorrow however over the last 1 or 2 days patient was noticed to have increasing swelling of his abdominal and both legs, associated with dyspnea or phlegm. No chest pain. In the emergency room patient has chest x-ray : right lower lobe pneumonia with pleural effusion. And metastatic disease to the bone. His CBC showing WBC of 8.8. Hemoglobin 10.5. Her BMP was unremarkable except for with creatinine 1.5 which is at his baseline, baseline creatinine is 1.2 to 1.8. Patient was started on Levaquin and Zosyn and Lasix 40 mg twice a day Patient suspected to have fluid overload and heart failure, patient does not have history of heart failure. We'll order echo Objective - Vital Signs Vital signs: Vital Signs Temp 98.1 F 07/29/18 08:19 Pulse 47 L 07/29/18 08:19 Resp 18 07/29/18 08:19 BP 127/53 07/29/18 08:19 Pulse Ox 91 L 07/29/18 08:19 Intake & Output 07/28/18 07/29/18 07/29/18 18:59 06:59 18:59 Intake Total 1820 1200 240 Output Total 1500 600 800 Balance 320 600 -560 Weight 100.4 kg Intake: IV 1100 1200 0.9 1100 1200 Oral 720 240 Output: Urine 1500 600 800 Other: Voiding Method Indwelling Catheter Indwelling Catheter Indwelling Catheter On examination she is awake alert oriented 3. A chin exam no JVP neck is supple no facial asymmetry no lymphadenopathy Lungs are clear to auscultation good air entry bilaterally Heart sounds are unremarkable for any murmur rub gallop Abdomen soft nontender no masses felt Extremity exam was no edema Neurologically awake alert oriented moves all her extremities. - Labs CBC & Chem 7: 07/29/18 06:09 07/29/18 06:09 Labs: Abnormal Lab Results - Last 24 Hours (Table) 07/28/18 07/28/18 07/28/18 Range/Units 05:50 11:14 16:20 Hgb (11.4-16.0) gm/dL MCH (25.0-35.0) pg Plt Count (150-450) k/uL BUN (7-17) mg/dL Creatinine (0.52-1.04) mg/dL Glucose (74-99) mg/dL POC Glucose (mg/dL) 218 H 111 H (75-99) mg/dL Calcium (8.4-10.2) mg/dL PTH Intact 171.3 H (14.0-72.0) pg/mL 07/28/18 07/29/18 07/29/18 Range/Units 19:46 05:50 06:09 Hgb 11.3 L (11.4-16.0) gm/dL MCH 24.9 L (25.0-35.0) pg Plt Count 135 L (150-450) k/uL BUN (7-17) mg/dL Creatinine (0.52-1.04) mg/dL Glucose (74-99) mg/dL POC Glucose (mg/dL) 257 H 155 H (75-99) mg/dL Calcium (8.4-10.2) mg/dL PTH Intact (14.0-72.0) pg/mL 07/29/18 Range/Units 06:09 Hgb (11.4-16.0) gm/dL MCH (25.0-35.0) pg Plt Count (150-450) k/uL BUN 30 H (7-17) mg/dL Creatinine 1.28 H (0.52-1.04) mg/dL Glucose 127 H (74-99) mg/dL POC Glucose (mg/dL) (75-99) mg/dL Calcium 10.4 H (8.4-10.2) mg/dL PTH Intact (14.0-72.0) pg/mL Assessment and Plan Assessment: Impression 1. Chronic recurrent Hypercalcemia for many years, secondary to skeletal metastasis from CA breast. Calcium was normal at the time of admission on 07/18 a week ago but came up during this hospitalization slowly to 11.7 with a ionized calcium 6.5. Responded to IV normal saline as well as Zometa 2 mg IV given 07/28/2018. Calcium came down to 10.4. Her MS is normal, Oriented X3. able to walk, with walker 2. Chronic kidney disease creatinine has been 1.2-2.43 over the last few years. Etiology likely nephrosclerosis. 3. Diabetes mellitus. No significant proteinuria to suggest diabetic nephropathy but cannot be ruled out completely. 4. History of DVT. 5. History of memory impairment. 6. History of breast cancer 2013 with metastatic disease on Arimidex 7. History of bacteremia in the recent past Recommendation 1. Continue IV normal saline at 100 mL an hour. 2. Continue to watch calcium electrolytes been creatinine. 3. Watch for congestive heart failure.
[2018-07-29 11:06] LABS: Glucose,Whole Blood 146 mg/dL (75-99)
--- NOTE | 2018-07-29 15:04 | P.PN ---
Subjective Progress Note Date: 07/29/18 This is a pleasant 83 years old female with past medical history of diabetes mellitus, DVT, hyperlipidemia, hypertension, memory impairment, atrial fibrillation, right breast cancer in 2013 with metastasis to the spine status post radiotherapy. Patient follow-up with Dr. Peck. History of fall and rhabdomyolysis and acute kidney injury. Chronic kidney disease stage III. Presents because of dyspnea. pt herself is poor historian , information is taken with the help of family at bed side after pt gave approval for that. Patient apparently presents because of dyspnea of 1-2 days duration. Cardiology consultation was initially requested because of atrial fibrillation with bradycardia. Patient also was in some mild congestive heart failure, diastolic, acute on chronic. White blood cell count 6.8, hemoglobin 11.9, platelet count 197. Sodium 139, potassium 4.7, BUN 35, creatinine 1.4. Blood pressure 142/50 with a heart rate in the 40s, 96% on 2 L of oxygen. Breathing has improved significantly. TSH is normal. 07/28/2018 Patient was seen and examined this morning, overall doing well. Continues to have a heart rate in the 40s. Denies any dizziness or lightheadedness at present. 07/29/2018 Patient seen and examined this morning, son and daughter both present today. Consented and signed for pacemaker implantation which will be performed either tomorrow or Monday. Blood pressure 134/40 heart rate in the 40s, white blood cell count 7.2, hemoglobin 11.3, platelet count 135. Sodium 138, potassium 4.7 , BUN 30, creatinine 1.2. We will hold the dose of Eliquis tonight. Objective - Vital Signs Vital signs: Vital Signs Temp 98.1 F 07/29/18 08:19 Pulse 46 L 07/29/18 13:16 Resp 18 07/29/18 13:16 BP 134/49 07/29/18 13:16 Pulse Ox 96 07/29/18 13:16 Intake & Output 07/28/18 07/29/18 07/29/18 18:59 06:59 18:59 Intake Total 1820 1200 480 Output Total 9217 282 2022 Balance 320 600 -1420 Weight 100.4 kg Intake: IV 1100 1200 0.9 1100 1200 Oral 720 480 Output: Urine 1159 [id number] [id number] Other: Voiding Method Indwelling Catheter Indwelling Catheter Indwelling Catheter - Exam PHYSICAL EXAMINATION: GENERAL: 83-year-old female in no acute distress at the time of my examination HEENT: Head is atraumatic, normocephalic. Pupils equal, round. Sclera anicteric. Conjunctiva are clear. Mucous membranes of the mouth are moist. Neck is supple. There is no elevated jugular venous pressure. No carotid bruit is heard. HEART EXAMINATION: Heart S1 and S2 irregularly irregular CHEST EXAMINATION: Lungs are clear to auscultation and precussion. No chest wall tenderness is noted on palpation or with deep breathing. ABDOMEN: Soft, nontender. Bowel sounds are heard. No organomegaly noted. EXTREMITIES: 2+ peripheral pulses with no evidence of peripheral edema and no calf tenderness noted. NEUROLOGIC patient is awake, alert and oriented 3 . . - Labs CBC & Chem 7: 07/29/18 06:09 07/29/18 06:09 Labs: Abnormal Lab Results - Last 24 Hours (Table) 07/28/18 07/28/18 07/29/18 Range/Units 16:20 19:46 05:50 Hgb (11.4-16.0) gm/dL MCH (25.0-35.0) pg Plt Count (150-450) k/uL BUN (7-17) mg/dL Creatinine (0.52-1.04) mg/dL Glucose (74-99) mg/dL POC Glucose (mg/dL) 111 H 257 H 155 H (75-99) mg/dL Calcium (8.4-10.2) mg/dL 07/29/18 07/29/18 07/29/18 Range/Units 06:09 06:09 11:04 Hgb 11.3 L (11.4-16.0) gm/dL MCH 24.9 L (25.0-35.0) pg Plt Count 135 L (150-450) k/uL BUN 30 H (7-17) mg/dL Creatinine 1.28 H (0.52-1.04) mg/dL Glucose 127 H (74-99) mg/dL POC Glucose (mg/dL) 146 H (75-99) mg/dL Calcium 10.4 H (8.4-10.2) mg/dL Assessment and Plan Plan: Assessment and plan #1 Acute on chronic CHF, diastolic dysfunction, ejection fraction 55-60% with mild LVH #2 Right lower lobe pneumonia with pleural effusion. #3 Chronic atrial fibrillation, bradycardic #4 Chronic kidney disease, stage III #5 Diabetes mellitus #6 History of DVT #7 History of hyperlipidemia #8 Essential hypertension #9 History of right breast cancer status post radiotherapy. History of recurrent falls Plan From cardiology's perspective, plan for possible pacemaker implantation on Monday or Monday. Eliquis will be on hold tonight. DNP note has been reviewed, I agree with a documented findings and plan of care. Patient was seen and examined.
[2018-07-29 16:16] LABS: Glucose,Whole Blood 300 mg/dL (75-99)
[2018-07-29] MEDS ORDERED: BENZOCAINE/MENTHOL LOZENG 1 EACH LOZENGE MUCOUS MEM PRN (16:41)
[2018-07-29] MEDS: CYANOCOBALAMIN 500 MCG TAB PO SCH (16:50)
[2018-07-29] MEDS: ASPIRIN 81 MG PO SCH (16:50)
[2018-07-29] MEDS: ASCORBIC ACID 500 MG TAB PO SCH (16:50)
[2018-07-29 21:00] LABS: Glucose,Whole Blood 238 mg/dL (75-99)
[2018-07-29] MEDS: INSULIN DETEMIR 100 UNIT/ML 10 ML VIAL SQ SCH (21:06)
[2018-07-30 05:49] LABS: Glucose,Whole Blood 86 mg/dL (75-99)
[2018-07-30] MEDS: INSULIN ASPART 100 UNIT/ML 1 ML 10 ML VIAL SQ SCH ×7 (05:57→22:56)
--- NOTE | 2018-07-30 05:58 | PN ---
PROGRESS NOTE DATE OF SERVICE: 07/29/2018 I am covering for Dr. Turner. This 83-year-old woman who was admitted with CHF acute exacerbation also had bradycardia. Cardiology is planning pacemaker. The patient's family is also planning possible ECF rehab. No chest pain or palpitations. No fever. PHYSICAL EXAMINATION: On exam, alert and oriented x3. Pulse 49, blood pressure 155/67, respirations 16, temperature 97.4, pulse ox 90% on room air. HEENT: Conjunctivae normal. NECK: No jugular venous distention. CARDIOVASCULAR: S1, S2 muffled. RESPIRATORY: Breath sounds diminished at the bases. Scattered rhonchi. ABDOMEN: Soft, nontender. NERVOUS SYSTEM: No focal deficits. LABS: WBC 7.2, hemoglobin 11.3. Creatinine is 1.28. ASSESSMENT: 1. Congestive heart failure acute exacerbation with acute on chronic diastolic dysfunction, ejection fraction 50% to 60%. 2. Right lower lobe pneumonia with pleural effusion possibly gram-negative. 3. Atrial fibrillation with bradycardia with permanent pacemaker. 4. Change in mental status metabolic encephalopathy with acute on chronic changes, multifactorial. 5. Chronic kidney disease stage III. 6. Chronic hypercalcemia, possibly from metastatic breast cancer. 7. Diabetes mellitus type 2. 8. History of deep venous thrombosis. 9. Hyperlipidemia. 10.Hypertension. 11.History of right breast cancer, status post radiation therapy. 12.Mild to moderate dementia. 13.NO CODE, NO CPR, NO VENT. RECOMMENDATIONS AND DISCUSSION: Recommend to continue current medications, continue symptomatic treatment. Closely follow with Cardiology. Monitor blood sugars closely. See orders for further details. Further recommendations to follow. Dr. Turner will follow. MMODL / IJN: [id number] /
[2018-07-30] MEDS: SODIUM CHLORIDE 0.9% 1,000 ML IV SCH ×3 (06:28→09:09)
[2018-07-30 06:51] LABS: Basophils % (A) 0 %; Eosinophils # (A) 0.3 k/uL (0-0.7); Eosinophils % (A) 5 %; HCT 35.4 % (34.0-46.0); HGB 10.6 gm/dL (11.4-16.0); Hypochromasia Marked; Lymphocytes # (A) 1.2 k/uL (1.0-4.8); Lymphocytes % (A) 19 %; MCH 24.5 pg (25.0-35.0); MCV 81.6 fL (80.0-100.0); Mean Platelet Volume 7.8; Monocytes # (A) 0.5 k/uL (0-1.0); Monocytes % (A) 8 %; Neutrophils # (A) 3.9 k/uL (1.3-7.7); Neutrophils % (A) 64 %; Platelet Count 159 k/uL (150-450); RBC 4.34 m/uL (3.80-5.40); RDW 14.8 % (11.5-15.5); WBC 6.1 k/uL (3.8-10.6)
[2018-07-30 06:58] LABS: Calcium 10.2 mg/dL (8.4-10.2); Potassium 4.6 mmol/L (3.5-5.1)
[2018-07-30] MEDS ORDERED: ceFAZolin IN SWFI 2 GM/20 ML SYRINGE IVP ONE (08:34)
[2018-07-30] MEDS ORDERED: ceFAZolin 1,000 MG in SODIUM CHLORIDE 0.9% IRRIGATIO 250 ML IRRIGATION ONE (08:34)
[2018-07-30] MEDS ORDERED: SODIUM CHLORIDE 0.9% 1,000 ML IV SCH (08:45)
[2018-07-30 09:02] LABS: Glucose,Whole Blood 95 mg/dL (75-99)
[2018-07-30] MEDS: amLODIPine 5 MG TAB PO SCH ×2 (09:05→22:05)
[2018-07-30] MEDS: FUROSEMIDE 40 MG TAB PO SCH ×3 (09:05→22:04)
[2018-07-30] MEDS: FAMOTIDINE 20 MG TAB PO SCH (09:05)
[2018-07-30] MEDS: ANASTROZOLE 1 MG TAB PO SCH (09:07)
--- NOTE | 2018-07-30 09:43 | P.PN ---
Subjective Progress Note Date: 07/30/18 Patient evaluated at the bedside. She is awake and alert. Patient is to have midline IV insertion this morning and then PPM insertion this afternoon. Heart rate is in the 40s. She denies pain or discomfort. Denies SOB or chest pain. Patient states she would like to go to ECF at the time of discharge. Objective - Vital Signs Vital signs: Vital Signs Temp 97.4 F L 07/29/18 19:55 Pulse 44 L 07/30/18 04:26 Resp 16 07/29/18 19:55 BP 146/68 07/30/18 04:26 Pulse Ox 95 07/30/18 04:26 Intake & Output 07/29/18 07/30/18 07/30/18 18:59 06:59 18:59 Intake Total 1380 Output Total 2900 1200 800 Balance -1520 -1200 -800 Weight 101.2 kg Intake: Intake, IV Titration 900 Amount Sodium Chloride 0.9% 1, 900 000 ml @ 100 mls/hr IV . Q10H [place] Rx#:[id number] Oral 480 Output: Urine 2900 1200 800 Other: Voiding Method Indwelling Catheter Indwelling Catheter # Voids 1 - Constitutional General appearance: Present: cooperative, no acute distress - EENT Eyes: Present: PERRLA ENT: Present: hearing grossly normal - Neck Neck: Present: normal ROM - Respiratory Respiratory: bilateral: diminished, negative: rhonchi, wheezing - Cardiovascular Details: Bradycardic Rhythm: irregularly irregular Heart sounds: normal: S1, S2 - Gastrointestinal General gastrointestinal: Present: normal bowel sounds - Integumentary Integumentary: Present: normal - Neurologic Neurologic: Present: CNII-XII intact - Musculoskeletal Musculoskeletal: Present: generalized weakness - Psychiatric Psychiatric: Present: A&O x's 3, appropriate affect - Labs CBC & Chem 7: 07/30/18 05:42 07/30/18 05:42 Labs: Abnormal Lab Results - Last 24 Hours (Table) 07/29/18 07/29/18 07/29/18 Range/Units 11:04 16:14 20:59 Hgb (11.4-16.0) gm/dL MCH (25.0-35.0) pg MCHC (31.0-37.0) g/dL BUN (7-17) mg/dL Creatinine (0.52-1.04) mg/dL POC Glucose (mg/dL) 146 H 300 H 238 H (75-99) mg/dL 07/30/18 07/30/18 Range/Units 05:42 05:42 Hgb 10.6 L (11.4-16.0) gm/dL MCH 24.5 L (25.0-35.0) pg MCHC 30.0 L (31.0-37.0) g/dL BUN 26 H (7-17) mg/dL Creatinine 1.31 H (0.52-1.04) mg/dL POC Glucose (mg/dL) (75-99) mg/dL Assessment and Plan Plan: ASSESSMENT: Acute on chronic diastolic congestive heart failure, EF 55-60% Right lower lobe pneumonia Chronic atrial fibrillation, bradycardic Chronic kidney disease, stage III Diabetes mellitus, type II History of DVT Hypertension Hyperlipidemia History of right breast cancer with radiation therapy Obesity: BMI 34.9 PLAN: Patient scheduled for midline insertion today. She is also scheduled for PPM insertion this afternoon. Continue oral lasix. PT/OT on consult. Patient will require DRE at the time of discharge. Requesting Demetra. Further recommendations pending patients course. Nurse practitioner note has been reviewed by physician. Signing provider agrees with the documented findings, assessment, and plan of care.
[2018-07-30 11:12] LABS: Glucose,Whole Blood 170 mg/dL (75-99)
[2018-07-30 16:37] LABS: Glucose,Whole Blood 137 mg/dL (75-99)
--- NOTE | 2018-07-30 17:49 | PN ---
PROGRESS NOTE Patient is seen for followup for acute kidney injury. Her renal function has improved with creatinine down to around 1.2 to 1.3 mg/dL. Patient denies any significant complaints. PHYSICAL EXAMINATION: Blood pressure was 144/71, heart rate 56 per minute. She is afebrile. Examination of the heart, S1, S2. Examination lungs, bilateral breath sounds are heard. Abdomen is soft, nontender. Examination of lower extremities shows no significant edema. [employer]INEER exam is grossly intact. LABS: Sodium 139, potassium 4.6, BUN 26, serum creatinine 1.3, hemoglobin 10.6 g/dL. Calcium is 10.2. ASSESSMENT: 1. Hypercalcemia secondary to metastatic cancer, currently improved. 2. Acute kidney injury, mostly prerenal and associated with hypercalcemia, currently improved. 3. Chronic kidney disease stage 3 with creatinine about 1.2-1.3 at baseline secondary to nephrosclerosis. 4. Metastatic breast cancer. 5. Previous history of DVT. PLAN: Continue to encourage increased oral intake. Discontinue IV fluids. MMODL / IJN: [id number] /
[2018-07-30] MEDS ORDERED: IV FLUID CONTINUATION 600 ML IV ONE (18:52)
[2018-07-30] MEDS ORDERED: IOPAMIDOL-370 50ML BTL INJ ONE (19:10)
[2018-07-30] MEDS ORDERED: LIDOCAINE 1% INJ 10MG/ML (20 ML MDV) ONE (19:15)
[2018-07-30] MEDS ORDERED: ACETAMINOPHEN TAB 325 MG TAB PO PRN (19:22)
[2018-07-30] MEDS ORDERED: ACETAMINOPHEN IV (For NPO) 1,000 MG in EMPTY BAG 1 BAG IVPB ONE (19:22)
[2018-07-30] MEDS ORDERED: HYDROcodone/APAP 5-325MG 1 EACH TAB PO PRN (19:22)
[2018-07-30] MEDS ORDERED: fentaNYL (PF) 50 MCG/ML 2 ML AMP ONE (19:25)
[2018-07-30] MEDS: fentaNYL (PF) 50 MCG/ML 2 ML AMP IV ONE ×3 (19:28→20:50)
[2018-07-30] MEDS ORDERED: LIDOCAINE 1% INJ 10MG/ML (20 ML MDV) SQ ONE ×2 (19:35→19:42)
--- NOTE | 2018-07-30 21:10 | P.PCN ---
Preoperative Diagnosis: Patient underwent EP procedure / permanent pacemaker implantation, under conscious sedation/moderate sedation, monitoring of the level of consciousness and physiologic parameters including but not limited to vital signs and oxygenation. Patient tolerated the procedure well without any acute complications. Start time: 1930 Stop time:2051
[2018-07-30] MEDS: ASCORBIC ACID 500 MG TAB PO SCH (22:04)
[2018-07-30] MEDS: ASPIRIN 81 MG PO SCH (22:04)
[2018-07-30] MEDS: CYANOCOBALAMIN 500 MCG TAB PO SCH (22:04)
[2018-07-30 22:08] LABS: Glucose,Whole Blood 181 mg/dL (75-99)
[2018-07-30] MEDS: INSULIN DETEMIR 100 UNIT/ML 10 ML VIAL SQ SCH (22:57)
[2018-07-31] MEDS: ceFAZolin IN SWFI 2 GM/20 ML SYRINGE IVP SCH ×4 (00:42→18:03)
[2018-07-31] MEDS: SODIUM CHLORIDE 0.9% 1,000 ML IV SCH (06:07)
[2018-07-31 06:20] LABS: Glucose,Whole Blood 173 mg/dL (75-99)
[2018-07-31 06:58] LABS: Basophils % (A) 0 %; Eosinophils # (A) 0.1 k/uL (0-0.7); Eosinophils % (A) 1 %; HCT 35.8 % (34.0-46.0); HGB 11.1 gm/dL (11.4-16.0); Hypochromasia Moderate; Lymphocytes # (A) 1.2 k/uL (1.0-4.8); Lymphocytes % (A) 16 %; MCV 80.7 fL (80.0-100.0); Monocytes # (A) 0.6 k/uL (0-1.0); Monocytes % (A) 8 %; Neutrophils # (A) 5.5 k/uL (1.3-7.7); Neutrophils % (A) 74 %; Platelet Count 186 k/uL (150-450); RBC 4.43 m/uL (3.80-5.40); RDW 15.3 % (11.5-15.5); WBC 7.5 k/uL (3.8-10.6)
[2018-07-31 07:13] LABS: Potassium 4.7 mmol/L (3.5-5.1)
[2018-07-31] MEDS: INSULIN ASPART 100 UNIT/ML 1 ML 10 ML VIAL SQ SCH ×7 (07:17→21:08)
--- NOTE | 2018-07-31 08:00 | PCN ---
PROCEDURE NOTE This 83-year-old female was admitted to the hospital with COPD/bronchitis/pneumonitis, but was found to be severely bradycardic. TSH was normal. She was not on any AV teresita blocking drugs. Her heart rates remained between 40 to 45 beats per minute for most part and we waited for about over a week, but there was was minimal to no improvement. In view of this severe bradycardia during the daytime without any triggering factors and underlying atrial fibrillation, permanent pacemaker was implanted. The patient was brought to the EP lab in a fasting state. Written informed consent was obtained prior to the procedure. The left shoulder area was prepped and draped as per protocol. Lidocaine was used for local anesthesia. A 4 cm incision was made parallel to the deltopectoral groove, about 1.5 cm medial to it the incision was carried down to the level of the pectoralis muscle. A subfascial pocket was made. Hemostasis was assured using the Aquamantys system. The left axillary vein access was obtained x2. Sheaths were placed and first the RV catheter was placed in the RV apex. This was a Crewtronic 9-lead 58 cm in length, model #4074, serial # [id number]. The pacing threshold was 0.3 V at 0.5 milliseconds, pacing impedance 1326 ohms and R-waves 15.6 mV. A 10 V test was negative. The second lead was implanted in the septum close to the His bundle (His bundle pacing to avoid RV pacing given the severity of her bradycardia and to avoid future congestive heart failure on account of 100% RV pacing. Her anticipated RV pacing without this lead would have been 100%). This was screwed in the His bundle area, nonselective capture was obtained and loss of nonselective His capture was noted at 1 V at 1 millisecond. Thereafter, ventricular capture was noted which was lost at 0.5 V at 1 millisecond. Both leads were secured to the underlying pectoralis fascia after removing the sheaths. Leads connected to the dual-chamber pacemaker. The His bundle lead was implanted into the atrial port. RV apical lead was plugged into the RV port. The lead and generator were then placed in subfascial pocket. The wound was closed in 3 layers and dressed per protocol. The device was then programmed to DDDR mode with a short AV delay of 80 milliseconds to promote His bundle pacing and avoid 100% RV pacing. Patient tolerated the procedure well without any acute complications. The conscious sedation was provided and the end time was 1930 and the out time was 2051. Please see full conscious sedation dictation separately. The patient tolerated the procedure well without any acute complications. PLAN: IV antibiotics and likely discharge home in the next 24 to 48 hours. MMODL / IJN: [id number] /
--- NOTE | 2018-07-31 08:06 | LTR ---
July 30, 2018 Re: Emy Rudolph Dear Chris: I had the pleasure of seeing Emy Rudolph once again in electrophysiology followup. Emy has been in the hospital for over a week now and she has persistent bradycardia in the low 40s. Her TSH is normal. She is not on any AV teresita blocking drugs. She underwent permanent pacemaker implantation with His-bundle pacing. This was implanted to avoid RV pacing, although she does have an RV lead as a backup. Hopefully, this will prevent future heart failure exacerbations. Thank you for entrusting me in the care of your patient. Warm regards. Sincerely, MD PRISCILA EsparzaL / MARTINN: [id number] /
--- NOTE | 2018-07-31 08:23 | XR ---
EXAMINATION TYPE: XR chest 2V DATE OF EXAM: 07/31/2018 COMPARISON: Prior chest x-ray 07/24/2017 HISTORY: Lead placement check TECHNIQUE: Frontal and lateral views of the chest are obtained. FINDINGS: Patient is rotated. There has been interval placement of a generator in the left pectoral r egion, there are leads in the right atrium and ventricle. Heart size is enlarged, similar to prior ex am. No evident pneumothorax. Basilar density persists, there is blunting of the costophrenic angles. Central vascularity appears prominently. Underlying prominent lung volumes may be indicative of COPD. IMPRESSION: No evident complication status post pacemaker placement. Correlate for congestive heart failure, there may be basilar effusions and associated atelectasis versus edema.
[2018-07-31] MEDS: FAMOTIDINE 20 MG TAB PO SCH (08:28)
[2018-07-31] MEDS: FUROSEMIDE 40 MG TAB PO SCH ×2 (08:28→17:04)
[2018-07-31] MEDS: amLODIPine 5 MG TAB PO SCH ×2 (08:28→17:05)
[2018-07-31] MEDS: ANASTROZOLE 1 MG TAB PO SCH (09:03)
--- NOTE | 2018-07-31 11:13 | P.PN ---
Subjective Progress Note Date: 07/31/18 This is a pleasant 83 years old female with past medical history of diabetes mellitus, DVT, hyperlipidemia, hypertension, memory impairment, atrial fibrillation, right breast cancer in 2014 with metastasis to the spine status post radiotherapy. Patient follow-up with Dr. Peck. History of fall and rhabdomyolysis and acute kidney injury. Chronic kidney disease stage III. Presents because of dyspnea. pt herself is poor historian , information is taken with the help of family at bed side after pt gave approval for that. Patient apparently presents because of dyspnea of 1-2 days duration. Cardiology consultation was initially requested because of atrial fibrillation with bradycardia. Patient also was in some mild congestive heart failure, diastolic, acute on chronic. White blood cell count 6.8, hemoglobin 11.9, platelet count 197. Sodium 139, potassium 4.7, BUN 35, creatinine 1.4. Blood pressure 142/50 with a heart rate in the 40s, 96% on 2 L of oxygen. Breathing has improved significantly. TSH is normal. 07/28/2018 Patient was seen and examined this morning, overall doing well. Continues to have a heart rate in the 40s. Denies any dizziness or lightheadedness at present. 07/29/2018 Patient seen and examined this morning, son and daughter both present today. Consented and signed for pacemaker implantation which will be performed either tomorrow or Monday. Blood pressure 134/40 heart rate in the 40s, white blood cell count 7.2, hemoglobin 11.3, platelet count 135. Sodium 138, potassium 4.7 , BUN 30, creatinine 1.2. We will hold the dose of Eliquis tonight. 07/31/2018 Patient seen and examined this morning, sitting up in the chair at bedside. She underwent implantation of a permanent pacemaker yesterday by Dr. Cardozo, device was interrogated and is functioning appropriately. Chest x-ray from this morning did not show any evidence of a pneumothorax. Blood pressure this morning 154/70 with a heart rate in the 60s. 91% on 2 L of oxygen. We will start the patient on a low-dose of beta perfecto this morning, resume Eliquis from this evening. Objective - Vital Signs Vital signs: Vital Signs Temp 97.8 F 07/30/18 21:58 Pulse 61 07/31/18 05:00 Resp 16 07/30/18 23:41 BP 154/72 07/31/18 05:00 Pulse Ox 91 L 07/31/18 05:00 Intake & Output 07/30/18 07/31/18 07/31/18 18:59 06:59 18:59 Intake Total 550 Output Total 1400 800 Balance -850 -800 Weight 100.8 kg Intake: IV 150 Intake, IV Titration 400 Amount Sodium Chloride 0.9% 1, 400 000 ml @ 50 mls/hr IV . Q20H [facility] Rx#:[id number] Output: Urine 1400 800 Other: Voiding Method Indwelling Catheter Indwelling Catheter # Voids 1 - Exam PHYSICAL EXAMINATION: GENERAL: 83-year-old female in no acute distress at the time of my examination HEENT: Head is atraumatic, normocephalic. Pupils equal, round. Sclera anicteric. Conjunctiva are clear. Mucous membranes of the mouth are moist. Neck is supple. There is no elevated jugular venous pressure. No carotid bruit is heard. HEART EXAMINATION: Heart S1 and S2 irregularly irregular CHEST EXAMINATION: Lungs are clear to auscultation and precussion. No chest wall tenderness is noted on palpation or with deep breathing. Dressing at the site of pacemaker insertion is dry and intact ABDOMEN: Soft, nontender. Bowel sounds are heard. No organomegaly noted. EXTREMITIES: 2+ peripheral pulses with no evidence of peripheral edema and no calf tenderness noted. NEUROLOGIC patient is awake, alert and oriented 3 . . - Labs CBC & Chem 7: 07/31/18 05:47 07/31/18 05:47 Labs: Abnormal Lab Results - Last 24 Hours (Table) 07/30/18 07/30/18 07/30/18 Range/Units 11:09 16:25 22:07 Hgb (11.4-16.0) gm/dL BUN (7-17) mg/dL Creatinine (0.52-1.04) mg/dL Glucose (74-99) mg/dL POC Glucose (mg/dL) 170 H 137 H 181 H (75-99) mg/dL 07/31/18 07/31/18 07/31/18 Range/Units 05:47 05:47 06:18 Hgb 11.1 L (11.4-16.0) gm/dL BUN 25 H (7-17) mg/dL Creatinine 1.32 H (0.52-1.04) mg/dL Glucose 162 H (74-99) mg/dL POC Glucose (mg/dL) 173 H (75-99) mg/dL Assessment and Plan Plan: Assessment and plan #1 Acute on chronic CHF, diastolic dysfunction, ejection fraction 55-60% with mild LVH #2 Right lower lobe pneumonia with pleural effusion. #3 Chronic atrial fibrillation, bradycardic, status post implantation of permanent pacemaker #4 Chronic kidney disease, stage III #5 Diabetes mellitus #6 History of DVT #7 History of hyperlipidemia #8 Essential hypertension #9 History of right breast cancer status post radiotherapy. History of recurrent falls Plan From cardiology's perspective, we will add a small dose of beta perfecto to the patient's medication regime for more optimal blood pressure control. Resume Eliquis from this evening. Patient may be able to be discharged home once cleared by primary. We will make her a follow-up appointment in the office post discharge. DNP note has been reviewed, I agree with a documented findings and plan of care. Patient was seen and examined.
[2018-07-31 11:34] LABS: Glucose,Whole Blood 141 mg/dL (75-99)
--- NOTE | 2018-07-31 11:46 | P.PN ---
Subjective Progress Note Date: 07/31/18 Patient evaluated this morning with Dr. Turner. Patient sitting up in the chair. patient underwent PPM insertion yesterday. Left arm remains in sling. She denies complaints or concerns. Vital signs stable. Objective - Vital Signs Vital signs: Vital Signs Temp 97.8 F 07/30/18 21:58 Pulse 61 07/31/18 05:00 Resp 16 07/30/18 23:41 BP 154/72 07/31/18 05:00 Pulse Ox 91 L 07/31/18 05:00 Intake & Output 07/30/18 07/31/18 07/31/18 18:59 06:59 18:59 Intake Total 550 Output Total 1400 800 Balance -850 -800 Weight 100.8 kg Intake: IV 150 Intake, IV Titration 400 Amount Sodium Chloride 0.9% 1, 400 000 ml @ 50 mls/hr IV . Q20H [facility] Rx#:[id number] Output: Urine 1400 800 Other: Voiding Method Indwelling Catheter Indwelling Catheter # Voids 1 - Constitutional General appearance: Present: cooperative - EENT Eyes: Present: PERRLA - Respiratory Respiratory: bilateral: diminished, negative: rhonchi, wheezing - Cardiovascular Rhythm: irregularly irregular Heart sounds: normal: S1, S2 - Gastrointestinal General gastrointestinal: Present: normal bowel sounds - Integumentary Integumentary: Present: normal - Neurologic Neurologic: Present: CNII-XII intact - Musculoskeletal Musculoskeletal: Present: generalized weakness - Psychiatric Psychiatric: Present: A&O x's 3 - Labs CBC & Chem 7: 07/31/18 05:47 07/31/18 05:47 Labs: Abnormal Lab Results - Last 24 Hours (Table) 07/30/18 07/30/18 07/30/18 Range/Units 11:09 16:25 22:07 Hgb (11.4-16.0) gm/dL BUN (7-17) mg/dL Creatinine (0.52-1.04) mg/dL Glucose (74-99) mg/dL POC Glucose (mg/dL) 170 H 137 H 181 H (75-99) mg/dL 07/31/18 07/31/18 07/31/18 Range/Units 05:47 05:47 06:18 Hgb 11.1 L (11.4-16.0) gm/dL BUN 25 H (7-17) mg/dL Creatinine 1.32 H (0.52-1.04) mg/dL Glucose 162 H (74-99) mg/dL POC Glucose (mg/dL) 173 H (75-99) mg/dL Assessment and Plan Plan: ASSESSMENT: Acute on chronic diastolic congestive heart failure, EF 55-60% Right lower lobe pneumonia Chronic atrial fibrillation, bradycardic S/P permanent pacemaker insertion, POD #1 Chronic kidney disease, stage III Diabetes mellitus, type II History of DVT Hypertension Hyperlipidemia History of right breast cancer with radiation therapy Obesity: BMI 34.9 PLAN: Continue current regimen. Sling to left upper extremity. Continue oral lasix. PT /OT on consult. Patient will require DRE at the time of discharge. Requesting [place]. Anticipate discharge tomorrow. Further recommendations pending patients course. Nurse practitioner note has been reviewed by physician. Signing provider agrees with the documented findings, assessment, and plan of care.
[2018-07-31] MEDS: METOPROLOL TARTRATE 25 MG TAB PO SCH ×2 (13:03→21:06)
--- NOTE | 2018-07-31 13:57 | PN ---
PROGRESS NOTE Patient is seen for followup for hypercalcemia and acute kidney injury. Her renal function is stable with creatinine being about 1.2-1.3 mg/dL. Calcium is decreased to 10.0 now. Patient is possibly getting discharged today. She has metastatic breast cancer. PHYSICAL EXAMINATION: blood pressure was 136/78, heart rate 62 per minute, patient is afebrile. Examination of the heart, S1, S2. Examination of the lungs, bilateral breath sounds are heard. Abdomen is soft, nontender. Examination of the lower extremities shows edema 1+ bilaterally. [employer] exam is grossly intact. LAB STUDIES: Show sodium 140, potassium 4.7, BUN 25, serum creatinine 1.32. Calcium 10.0, hemoglobin 11.1. ASSESSMENT: 1. Acute kidney injury associated with hypercalcemia, currently improved. 2. Hypercalcemia from metastatic breast cancer, status post saline and bisphosphonates, currently improved. Calcium is down to 10.0. 3. Metastatic breast cancer. 4. Lower extremity edema. Currently, patient is maintained on Lasix, which we can continue. PLAN: Continue with oral Lasix and continue to encourage increased oral intake. Monitor labs as outpatient. MMODL / IJN: [id number] /
[2018-07-31 16:37] VITALS: PULSE 61
[2018-07-31] MEDS: CYANOCOBALAMIN 500 MCG TAB PO SCH (17:01)
[2018-07-31] MEDS: ASCORBIC ACID 500 MG TAB PO SCH (17:03)
[2018-07-31] MEDS: ASPIRIN 81 MG PO SCH (17:04)
[2018-07-31 17:32] LABS: Glucose,Whole Blood 92 mg/dL (75-99)
[2018-07-31 20:46] LABS: Glucose,Whole Blood 198 mg/dL (75-99)
[2018-07-31] MEDS: APIXABAN 2.5 MG TABLET PO SCH (21:06)
[2018-07-31] MEDS: ACETAMINOPHEN TAB 325 MG TAB PO PRN (21:25)
[2018-07-31] MEDS ORDERED: INSULIN DETEMIR 100 UNIT/ML 10 ML VIAL SQ SCH (21:30)
[2018-08-01] MEDS: SODIUM CHLORIDE 0.9% 1,000 ML IV SCH (06:14)
[2018-08-01 07:08] LABS: Glucose,Whole Blood 53 mg/dL (75-99)
[2018-08-01] MEDS: INSULIN ASPART 100 UNIT/ML 1 ML 10 ML VIAL SQ SCH ×2 (07:18→07:19)
[2018-08-01 07:32] LABS: Glucose,Whole Blood 59 mg/dL (75-99)
[2018-08-01 07:44] LABS: Glucose,Whole Blood 78 mg/dL (75-99)
[2018-08-01] MEDS: amLODIPine 5 MG TAB PO SCH (07:51)
[2018-08-01] MEDS: FUROSEMIDE 40 MG TAB PO SCH (07:51)
[2018-08-01] MEDS: APIXABAN 2.5 MG TABLET PO SCH (07:51)
[2018-08-01] MEDS: METOPROLOL TARTRATE 25 MG TAB PO SCH (07:51)
[2018-08-01] MEDS: ANASTROZOLE 1 MG TAB PO SCH (07:51)
[2018-08-01] MEDS: FAMOTIDINE 20 MG TAB PO SCH (07:51)
[2018-08-01 08:05] VITALS: BP 114/61; RESP 22; TEMP 97
--- NOTE | 2018-08-01 09:11 | P.DS ---
Providers Date of admission: 07/18/18 10:31 Expected date of discharge: 08/01/18 Attending physician: Chris Turner Consults: 07/24/18 14:56 Consult Physician Routine Consulting Provider: London Carpenter Consult Reason/Comments: medical competency Do you want consulting provider notified?: Yes 07/27/18 17:43 Consult Physician Routine Consulting Provider: Palmer Marr Consult Reason/Comments: hypercalcemia Do you want consulting provider notified?: Yes 07/18/18 10:31 Consult Physician Routine Consulting Provider: Fallon Haas Consult Reason/Comments: migue Do you want consulting provider notified?: Yes Primary care physician: Chris Turner Hospital Course: 83-year-old female who presented to the emergency room with shortness of breath. The patient was found to be in congestive heart failure. She was started on IV Lasix which has been transitioned to oral Lasix. The patient was also bradycardic during hospitalization. She was on no AV teresita blocking agents. TSH was within normal limits. Cardiology was consulted and evaluated patient during hospitalization. She underwent permanent pacemaker insertion on 07/30/2018. Chest x-ray following permanent pacemaker insertion did not show evidence of pneumothorax. She remains weak and debilitated. PT/OT were consulted and worked with patient. She is stable for discharge today to [facility]. Discharge Diagnosis: Acute on chronic diastolic congestive heart failure, EF 55-60% Right lower lobe pneumonia Chronic atrial fibrillation, bradycardic S/P permanent pacemaker insertion, POD #1 Chronic kidney disease, stage III Diabetes mellitus, type II History of DVT Hypertension Hyperlipidemia History of right breast cancer with radiation therapy Obesity: BMI 34.9 Nurse practitioner note has been reviewed by physician. Signing provider agrees with the documented findings, assessment, and plan of care. Patient Condition at Discharge: Stable Plan - Discharge Summary Discharge Rx Participant: No New Discharge Prescriptions: New Acetaminophen Tab [Tylenol] 650 mg PO Q6HR PRN tab PRN Reason: Mild Pain Benzocaine/Menthol Lozeng [Cepacol lozenge] 1 each MUCOUS MEM Q4HR PRN lozenge PRN Reason: Cough Furosemide [Lasix] 40 mg PO BID@0900,1600 tab Metoprolol Tartrate [Lopressor] 25 mg PO BID tab Continue Anastrozole [Arimidex] 1 mg PO DAILY@0800 Aspirin [Adult Low Dose Aspirin EC] 81 mg PO DAILY@1700 Cyanocobalamin (Vitamin B-12) [Vitamin B12] 2,500 mcg PO DAILY@1700 Ascorbic Acid [Vitamin C] 500 mg PO DAILY@1700 Apixaban [Eliquis] 2.5 mg PO BID@0800,1700 Acetaminophen Tab [Tylenol] 650 mg PO Q4H PRN PRN Reason: Pain amLODIPine [Norvasc] 5 mg PO BID@0800,1700 Bisacodyl [Dulcolax] 10 mg RECTAL DAILY PRN PRN Reason: Constipation Glucerna Shake 1 can PO DAILY@2100 Insulin Aspart [NovoLOG (formulary)] 9 unit SQ AC-TID Insulin Detemir [Levemir] 38 unit SQ HS@0 Magnesium Hydroxide [Milk of Magnesia] 2,400 mg PO DAILY PRN PRN Reason: Constipation Na Phos,M-B/Na Phos,Di-Ba [Fleet Adult] 133 ml RECTAL DAILY PRN PRN Reason: Constipation Discontinued Furosemide [Lasix] 40 mg PO DAILY@0800 Discharge Medication List Anastrozole [Arimidex] 1 mg PO DAILY@0800 05/14/15 [History] Aspirin [Adult Low Dose Aspirin EC] 81 mg PO DAILY@1700 10/06/17 [History] Apixaban [Eliquis] 2.5 mg PO BID@0800,1700 06/26/18 [History] Ascorbic Acid [Vitamin C] 500 mg PO DAILY@1700 06/26/18 [History] Cyanocobalamin (Vitamin B-12) [Vitamin B12] 2,500 mcg PO DAILY@1700 06/26/18 [ History] Acetaminophen Tab [Tylenol] 650 mg PO Q4H PRN 07/18/18 [History] Bisacodyl [Dulcolax] 10 mg RECTAL DAILY PRN 07/18/18 [History] Glucerna Shake 1 can PO DAILY@2100 07/18/18 [History] Insulin Aspart [NovoLOG (formulary)] 9 unit SQ AC-TID 07/18/18 [History] Insulin Detemir [Levemir] 38 unit SQ HS@2130 07/18/18 [History] Magnesium Hydroxide [Milk of Magnesia] 2,400 mg PO DAILY PRN 07/18/18 [History] Na Phos,M-B/Na Phos,Di-Ba [Fleet Adult] 133 ml RECTAL DAILY PRN 07/18/18 [ History] amLODIPine [Norvasc] 5 mg PO BID@0800,1700 07/18/18 [History] Acetaminophen Tab [Tylenol] 650 mg PO Q6HR PRN tab 07/31/18 [Rx] Benzocaine/Menthol Lozeng [Cepacol lozenge] 1 each MUCOUS MEM Q4HR PRN lozenge 07/31/18 [Rx] Furosemide [Lasix] 40 mg PO BID@0900,1600 tab 07/31/18 [Rx] Metoprolol Tartrate [Lopressor] 25 mg PO BID tab 07/31/18 [Rx] Follow up Appointment(s)/Referral(s): [facility] [Provider Group] - 1 Week Chris Turner DO [Primary Care Provider] - 1 Week Activity/Diet/Wound Care/Special Instructions: [facility] healthy diet, consistent carb diet Activity as tolerated Oxygen via NC to maintain sats greater than 92%. Discharge Disposition: TRANSFER TO SNF/ECF
[2018-08-01 09:22] LABS: Basophils % (A) 0 %; Eosinophils # (A) 0.1 k/uL (0-0.7); Eosinophils % (A) 2 %; HCT 36.5 % (34.0-46.0); HGB 11.5 gm/dL (11.4-16.0); Hypochromasia Marked; Lymphocytes # (A) 0.8 k/uL (1.0-4.8); Lymphocytes % (A) 9 %; MCH 25.9 pg (25.0-35.0); MCHC 31.4 g/dL (31.0-37.0); MCV 82.3 fL (80.0-100.0); Mean Platelet Volume 7.1; Monocytes # (A) 0.7 k/uL (0-1.0); Monocytes % (A) 7 %; Neutrophils # (A) 7.4 k/uL (1.3-7.7); Neutrophils % (A) 81 %; Platelet Count 179 k/uL (150-450); RBC 4.44 m/uL (3.80-5.40); RDW 15.4 % (11.5-15.5); WBC 9.2 k/uL (3.8-10.6)
[2018-08-01 09:39] LABS: Calcium 10.1 mg/dL (8.4-10.2); Potassium 4.5 mmol/L (3.5-5.1)
[2018-08-01] MEDS ORDERED: INSULIN ASPART 100 UNIT/ML 1 ML 10 ML VIAL SQ SCH (12:30)
[2018-08-01] MEDS ORDERED: INSULIN DETEMIR 100 UNIT/ML 10 ML VIAL SQ SCH (21:30)
== END 2018-08-01 11:53 | DRG 242 ==
LOC: EC 09:28 → 3SCARD 10:31 → 2SICU 14:27 → 3SCARD 07-25 12:53 → 4MS4W 07-31 15:32
PROVIDERS: ADMIT Family Medicine; ATTEND Family Medicine
PROC: 02HK3JZ Insertion of Pacemaker Lead into Right Ventricle, Percutaneous Approach (ICD-10-PCS; 2018-07-30)
PROC: 0JH606Z Insertion of Pacemaker, Dual Chamber into Chest Subcutaneous Tissue and Fascia, Open Approach (ICD-10-PCS; principal; 2018-07-30 09:00)
PROC: 02HL3JZ Insertion of Pacemaker Lead into Left Ventricle, Percutaneous Approach (ICD-10-PCS; 2018-07-30 09:00)
DX: I13.0 Hypertensive heart and chronic kidney disease with heart failure and stage 1 through stage 4 chronic kidney disease, or unspecified chronic kidney disease (principal); G93.41 Metabolic encephalopathy; I50.31 Acute diastolic (congestive) heart failure; J18.9 Pneumonia, unspecified organism; C79.51 Secondary malignant neoplasm of bone; E87.2 Acidosis; J44.0 Chronic obstructive pulmonary disease with (acute) lower respiratory infection; N17.9 Acute kidney failure, unspecified; Z66 Do not resuscitate; E11.22 Type 2 diabetes mellitus with diabetic chronic kidney disease; E83.52 Hypercalcemia; I48.2 Chronic atrial fibrillation; F03.90 Unspecified dementia, unspecified severity, without behavioral disturbance, psychotic disturbance, mood disturbance, and anxiety; N18.3 Chronic kidney disease, stage 3 (moderate); R00.1 Bradycardia, unspecified; E78.5 Hyperlipidemia, unspecified; E66.9 Obesity, unspecified; I08.0 Rheumatic disorders of both mitral and aortic valves; R09.02 Hypoxemia; Z68.34 Body mass index [BMI] 34.0-34.9, adult; Z79.01 Long term (current) use of anticoagulants; Z79.4 Long term (current) use of insulin; Z79.811 Long term (current) use of aromatase inhibitors; Z79.82 Long term (current) use of aspirin; Z79.899 Other long term (current) drug therapy; Z88.5 Allergy status to narcotic agent; Z92.3 Personal history of irradiation; Z90.11 Acquired absence of right breast and nipple; Z87.442 Personal history of urinary calculi; Z86.718 Personal history of other venous thrombosis and embolism; Z85.3 Personal history of malignant neoplasm of breast; Z87.440 Personal history of urinary (tract) infections; Z91.81 History of falling; Z98.51 Tubal ligation status; Z90.49 Acquired absence of other specified parts of digestive tract; Z82.49 Family history of ischemic heart disease and other diseases of the circulatory system; Z83.3 Family history of diabetes mellitus
CPT/HCPCS: 33208; 36410; 36415; 70450; 71045; 71046; 76937; 80048; 80053; 81001; 82330; 82550; 82553; 83036; 83735; 83880; 83970; 84100; 84443; 84484; 85025; 85027; 85610; 85730; 87040; 93005; 93306; 96365; 96367; 96375; 99291

== ENCOUNTER → 2018-11-06 | Outpatient (CLI) | payer MEDICARE ==
--- NOTE | 2018-11-07 13:34 | CT ---
EXAMINATION TYPE: CT ChestAbdPelvis w con DATE OF EXAM: 11/06/2018 COMPARISON: 11/06/2017 and 11/26/2016 HISTORY: History of breast and bone cancer. CT DLP: 1891.5 mGycm. Automated Exposure Control for Dose Reduction was Utilized. CONTRAST: CT scan of the thorax, abdomen and pelvis is performed with IV Contrast, patient injected with 80 mL of Isovue 300. FINDINGS: LUNGS: Tiny 2 mm right apical pulmonary nodule versus ectatic pulmonary vessel is stable and unchange d from the prior 11/06/2017. This was suboptimally seen on oh previous as motion artifact limited the evaluation. There is some motion artifact on today's examination as well. No new concerning pulmonary mass is seen. No focal consolidation. There is no pleural effusion or pneumothorax seen. The trac heobronchial tree is patent. MEDIASTINUM: There are no greater than 1 cm hilar or mediastinal lymph nodes. Heart is mildly enlar ged. No pericardial effusion is seen. The left main pulmonary artery is enlarged measuring 3.0 cm an d the right main pulmonary arteries prominent measuring 2.3 cm. Underlying pulmonary arterial hyperte nsion is possible. Moderate coronary calcifications are seen. Dense mitral annular calcifications are also present. OTHER: The thyroid gland is slightly enlarged. Right mastectomy change is evident. No new suspicious right axillary adenopathy nor chest wall mass. No internal mammary adenopathy is seen. LIVER/GB: No discrete hepatic lesion is appreciated. Gallbladder again is likely surgically absent. PANCREAS: No significant abnormality is seen. SPLEEN: No significant abnormality is seen. ADRENALS: Slight adrenal gland thickening is seen bilaterally although the adrenal glands maintain th eir normal adreniform shape. Benign mild adrenal gland hyperplasia is suspected. KIDNEYS: There is new moderate left hydronephrosis and dilatation of the left renal pelvis and ureter with normal variant bilateral insertion of the left ureter and duplex left renal collecting system j oining together in the mid ureter. No radiopaque obstructing calculus is seen. Urinary bladder is raghu ssly distended. The kidneys appear to enhance overall symmetrically with lobulated contour bilaterall y, right greater than left. Lobulated contour could be on the basis of prior injury. No delayed enhan cement of the left kidney is seen in comparison to that of the right. BOWEL: Moderate degree of fecal stasis is noted throughout. No dilated large or small bowel. Retained fecal debris limits evaluation of the bowel. Very small hiatal hernia is present. GENITAL ORGANS: Dystrophic calcifications of the uterus are likely on the basis of degenerative uteri ne fibroids. LYMPH NODES: No greater than 1cm abdominal or pelvic lymph nodes are appreciated. Bilateral external chain iliac lymph nodes maintain a normal fatty hilum. OSSEOUS STRUCTURES: There is similar-appearing diffuse osteoblastic metastasis. The sternum does appe ar spared. No new pathologic compression deformities are seen. OTHER: There is again extensive atherosclerosis of the abdominal aorta and its branches. Diastasis re cti and a small fat filled umbilical hernia is also redemonstrated. IMPRESSION: 1. New moderate left hydroureteronephrosis within a duplex collecting system. Nonradiopaque obstructi ng calculus at the left ureterovesicular junction or ureterovesicular reflux are possible as there is distention of the urinary bladder. 2. No new evidence of visceral metastasis within the chest, abdomen, and pelvis. 3. Redemonstration of diffuse osteoblastic skeletal metastasis without evidence of new pathologic fra cture. Degree of involvement is similar to the prior 11/06/2017.
== END | disposition home or self-care (01) ==
LOC: RADCTMAIN 13:21
PROVIDERS: ATTEND Internal Medicine Hematology & Oncology
DX: C79.51 Secondary malignant neoplasm of bone (principal); C50.411 Malignant neoplasm of upper-outer quadrant of right female breast; N18.9 Chronic kidney disease, unspecified; E11.22 Type 2 diabetes mellitus with diabetic chronic kidney disease; N13.30 Unspecified hydronephrosis; Z88.5 Allergy status to narcotic agent
CPT/HCPCS: 82565; 84520; 71260; 74177; 36415; Q9967

== ENCOUNTER → 2019-07-05 | Outpatient (CLI) | payer MEDICARE ==
--- NOTE | 2019-07-05 12:08 | XR ---
Left shoulder HISTORY: Left shoulder pain 4 views of the left shoulder There is a generator in the left pectoral region. Left lung apex as visualized is unremarkable. There are sclerotic foci involving the proximal left humerus, multiple ribs. Alignment is maintained. Ther e is joint space loss with remodeling of the glenohumeral joint. No fracture or dislocation. Degenera tive disc changes noted within the spine. IMPRESSION: Osseous metastatic disease. Osteoarthritic change left shoulder.
--- NOTE | 2019-07-05 15:26 | NM ---
EXAMINATION TYPE: NM bone scan whole body DATE OF EXAM: 07/05/2019 COMPARISON: CT scan 11/06/2018, left shoulder film 07/05/2019, bone scan 10/24/2016 HISTORY: Breast cancer, bone metastases Delayed whole-body scanning was performed following the injection of 26.9 mCi Tc 99m MDP. Images acq uired 3.75 hours post injection. FINDINGS: The areas of abnormal uptake involving multiple ribs, left shoulder, possibly the calvarium, multiple vertebral bodies, pelvis and proximal lower extremities, left scapula are again noted and is similar distribution. IMPRESSION: Osseous metastatic disease shows a similar appearance.
== END | disposition home or self-care (01) ==
LOC: RADNMMAIN 09:25
PROVIDERS: ATTEND Internal Medicine Hematology & Oncology
DX: C79.51 Secondary malignant neoplasm of bone (principal); C50.411 Malignant neoplasm of upper-outer quadrant of right female breast; M19.012 Primary osteoarthritis, left shoulder; I48.91 Unspecified atrial fibrillation; E83.52 Hypercalcemia
CPT/HCPCS: 73030; 78306; A9503

== ENCOUNTER 2019-09-14 01:01 | Inpatient (IN) | payer MEDICARE, OTHER ==
[2019-09-14] MEDS ORDERED: ONDANSETRON 4 MG/2 ML VIAL IVP STA (02:05)
[2019-09-14 02:10] LABS: Glucose,Whole Blood 132 mg/dL (75-99)
--- NOTE | 2019-09-14 02:13 | XR ---
EXAMINATION TYPE: XR chest 2V DATE OF EXAM: 09/14/2019 COMPARISON: 07/31/2018 HISTORY: Lead placement check TECHNIQUE: FINDINGS: Heart is moderately enlarged. There is right pleural effusion. There is small left pleural effusion. Thoracic aorta is atheromatous. There is left axillary pacemaker with the lead tips in the right ventricle. Not changed. There is mild pulmonary congestion. IMPRESSION: Mild chronic heart failure with pleural effusions. Pulmonary congestion improved slightly compared to old exam.
[2019-09-14 02:18] LABS: Basophils % (A) 0 %; Eosinophils # (A) 0.1 k/uL (0-0.7); Eosinophils % (A) 1 %; HGB 11.2 gm/dL (11.4-16.0); Hypochromasia Marked; Lymphocytes # (A) 0.5 k/uL (1.0-4.8); Lymphocytes % (A) 5 %; MCH 24.6 pg (25.0-35.0); MCHC 29.6 g/dL (31.0-37.0); MCV 83.2 fL (80.0-100.0); Monocytes # (A) 0.8 k/uL (0-1.0); Monocytes % (A) 7 %; Neutrophils # (A) 9.4 k/uL (1.3-7.7); Neutrophils % (A) 85 %; Platelet Count 295 k/uL (150-450); RBC 4.57 m/uL (3.80-5.40); RDW 15.5 % (11.5-15.5); WBC 11.2 k/uL (3.8-10.6)
[2019-09-14 02:21] LABS: Albumin 3.4 g/dL (3.5-5.0); Calcium 9.9 mg/dL (8.4-10.2); Potassium 4.7 mmol/L (3.5-5.1); Total Bilirubin 0.9 mg/dL (0.2-1.3); Total Protein 6.6 g/dL (6.3-8.2)
[2019-09-14 02:34] LABS: INR 1.2 (<1.2); Partial Thromboplastin Time 25.3 sec (22.0-30.0); Prothrombin Time 12.4 sec (9.0-12.0)
[2019-09-14 02:49] LABS: D-Dimer 3.6 mg/L FEU (<0.60)
[2019-09-14] MEDS ORDERED: FUROSEMIDE 10 MG/ML 10 ML VIAL IV STA (02:57)
[2019-09-14] MEDS ORDERED: NALOXONE 0.4 MG/ML 1 ML VIAL IV PRN (03:17)
--- NOTE | 2019-09-14 03:17 | ED ---
SOB HPI - General Chief Complaint: Shortness of Breath Stated Complaint: Shortness of Breath Time Seen by Provider: 09/14/19 01:05 Source: EMS Mode of arrival: EMS Limitations: no limitations - History of Present Illness Initial Comments: The patient is a 84-year-old female with past medical history of diabetes, DVT, hypertension, A. fib and hyperlipidemia who presents to the emergency department with reported shortness of breath. She is coming from [facility]. Daughter at bedside helps provide history. They state that over the past couple of days the patient has had increasing lower extremity edema as well as shortness of breath. She does have a history of CHF and takes Lasix daily. Patient's dose was changed on the to 80 mg twice daily. He also provided her with 80 mg IM prior to coming into the emergency department. The patient was not responding to the medications and therefore sent into the emergency department for admission. The patient has a history of DVT. She is currently anticoagulated for her A. fib. States she hasn't missed any doses. Denies any chest pain. No back or flank pain. Denies a cough or hemoptysis. Normally does not wear oxygen at her facility. No history of COPD. No fevers or chills. No recent travel or sick contacts. There are no alleviating, precipitating or modifying factors - Related Data Home Medications Medication Instructions Recorded Confirmed Anastrozole [Arimidex] 1 mg PO DAILY@0800 05/14/15 09/14/19 Aspirin [Adult Low Dose Aspirin EC] 81 mg PO DAILY@1700 10/06/17 09/14/19 Apixaban [Eliquis] 2.5 mg PO BID@0800,1700 06/26/18 09/14/19 Ascorbic Acid [Vitamin C] 500 mg PO DAILY@1200 06/26/18 09/14/19 Cyanocobalamin (Vitamin B-12) 2,500 mcg PO DAILY@1200 06/26/18 09/14/19 [Vitamin B-12] Acetaminophen Tab [Tylenol] 650 mg PO BID@0800,1700 07/18/18 09/14/19 Bisacodyl [Dulcolax] 10 mg RECTAL DAILY PRN 07/18/18 09/14/19 Na Phos,M-B/Na Phos,Di-Ba [Fleet 133 ml RECTAL DAILY PRN 07/18/18 09/14/19 Adult] amLODIPine [Norvasc] 5 mg PO DAILY@1200 07/18/18 09/14/19 Carvedilol [Coreg] 6.25 mg PO BID@0800,1700 09/14/19 09/14/19 Cholecalciferol (Vitamin D3) 2,000 unit PO DAILY@0800 09/14/19 09/14/19 [Vitamin D3] Clobetasol Propionate [Temovate 1 applic TOPICAL BID 09/14/19 09/14/19 0.05% Cream] Guaifenesin/Dextromethorphan 10 ml PO Q6H PRN 09/14/19 09/14/19 [guaiFENesin DM] Insulin Aspart [NovoLOG] 5 units SQ AC-LUNCH@1100 09/14/19 09/14/19 Insulin Aspart [NovoLOG] 11 units SQ AC-BRKFST@0700 09/14/19 09/14/19 Insulin Aspart [NovoLOG] 14 units SQ AC-SUPPER@1630 09/14/19 09/14/19 Insulin Detemir (Levemir) [Levemir] 26 unit SQ HS@2130 09/14/19 09/14/19 Ipratropium-Albuterol Nebulize 3 ml INHALATION RT-QID@00,06,12,18 09/14/19 09/14/19 [Duoneb 0.5 mg-3 mg/3 ml Soln] Magnesium Hydroxide [Milk of 7,200 mg PO DAILY PRN 09/14/19 09/14/19 Magnesia Concentrate] Naproxen Sodium [Aleve] 220 mg PO Q12H PRN 09/14/19 09/14/19 Xgeva Solution 120mg/1.7ml 120 mg SQ Q28D 09/14/19 09/14/19 Previous Rx's Medication Instructions Recorded Acetaminophen Tab [Tylenol] 650 mg PO Q6HR PRN tab 07/31/18 Bumetanide [BUMEX] 1 mg PO 1600 tab 09/18/19 Bumetanide [BUMEX] 2 mg PO DAILY tab 09/18/19 Ertapenem [INVanz] 1 gm IVPB DAILY@1200 #7 vial 09/18/19 Fluticasone Nasal [place] [Flonase 2 spray EA NOSTRIL DAILY spr 09/18/19 Nasal [place]] SILVER sulfADIAZINE Cream 1 applic TOPICAL DAILY applic 09/18/19 [Silvadene 1% Cream] Allergies Allergy/AdvReac Type Severity Reaction Status Date / Time tuberculin, purified protein Allergy Unknown Verified 09/14/19 13:22 deriva tuberculin,PPD,multi-puncture Allergy Unknown Verified 09/14/19 13:22 codeine AdvReac Abdominal Verified 09/14/19 13:22 Pain Review of Systems ROS Statement: Those systems with pertinent positive or pertinent negative responses have been documented in the HPI. ROS Other: All systems not noted in ROS Statement are negative. Past Medical History Past Medical History: Atrial Flutter, Cancer, Diabetes Mellitus, Deep Vein Thrombosis (DVT), Eye Disorder, Hyperlipidemia, Hypertension, Memory Impairment, Renal Disease Additional Past Medical History / Comment(s): hx. rt breast cancer-2013 has mets to spine(sx and radiation tx and currently reciving hormone blockers, metastasis to spine-gets tx.hx of anemia requiring blood transfusion, DVT leg years ago, uses walker, bone CA-sees dr hu, kidney stones(sx), uti's/urosepsis/bacteremia,ad foot fx-no sx just casted. 2016 fall/r habomyolosis/akf. family stated pt has kidney disease but refused to seek tx per specilaist" History of Any Multi-Drug Resistant Organisms: None Reported Past Surgical History: Breast Surgery, Cholecystectomy, Heart Catheterization, Tubal Ligation Additional Past Surgical History / Comment(s): right mastectomy, cataracts re moved, excision of lesion rt cheek, steroid inj in past for heel spur, lithotripsy Past Anesthesia/Blood Transfusion Reactions: No Reported Reaction Past Psychological History: No Psychological Hx Reported Smoking Status: Never smoker - Past Family History Mother Family Medical History: Diabetes Mellitus Father Family Medical History: Congestive Heart Failure (CHF) General Exam Limitations: no limitations General appearance: alert, in no apparent distress Head exam: Present: atraumatic, normocephalic, normal inspection Eye exam: Present: normal appearance, PERRL, EOMI. Absent: scleral icterus, conjunctival injection, periorbital swelling ENT exam: Present: normal exam, mucous membranes moist Neck exam: Present: normal inspection. Absent: tenderness, meningismus, lymphadenopathy Respiratory exam: Present: wheezes, rales, other (tachypnea). Absent: respiratory distress, rhonchi, stridor Cardiovascular Exam: Present: regular rate, normal rhythm, normal heart sounds. Absent: systolic murmur, diastolic murmur, rubs, gallop, clicks GI/Abdominal exam: Present: soft, normal bowel sounds. Absent: distended, tenderness, guarding, rebound, rigid Extremities exam: Present: full ROM, normal capillary refill, pedal edema (4+). Absent: tenderness, joint swelling, calf tenderness Back exam: Present: normal inspection Neurological exam: Present: alert, oriented X3, CN II-XII intact Psychiatric exam: Present: normal affect, normal mood Skin exam: Present: warm, dry, intact, normal color. Absent: rash Course Vital Signs 09/14/19 09/14/19 09/14/19 01:03 01:40 02:51 Temperature 98.9 F 98.1 F Pulse Rate 85 60 Pulse Rate [ Pulse Oximetery ] Respiratory 18 22 18 Rate Blood Pressure 130/71 107/54 Blood Pressure [Left Arm] O2 Sat by Pulse 92 L 94 L Oximetry 09/14/19 09/14/19 09/14/19 04:20 07:42 09:01 Temperature 98 F 97.8 F Pulse Rate 60 Pulse Rate [ 67 Pulse Oximetery ] Respiratory 18 18 20 Rate Blood Pressure 122/71 Blood Pressure 132/69 [Left Arm] O2 Sat by Pulse 96 93 L Oximetry 09/14/19 09/14/19 12:59 14:02 Temperature 99.1 F Pulse Rate 60 60 Pulse Rate [ Pulse Oximetery ] Respiratory 18 20 Rate Blood Pressure 110/63 114/62 Blood Pressure [Left Arm] O2 Sat by Pulse 94 L 93 L Oximetry Medical Decision Making - Medical Decision Making Upon arrival the patient was placed into room 2. A thorough history and physical exam was performed. The patient does have significant pedal edema with weeping wounds. She is placed on supplemental oxygen. No signs of respiratory distress. Recommended laboratory studies and a chest x-ray. Laboratory studies are remarkable for a d-dimer 3.6. Creatinine is 1.5. BNP is elevated at 7340. Influenza A and B are negative. Chest x-ray does demonstrate mild chronic heart failure with pleural effusions. The patient does have an elevated d-dimer however I am unable to do a CT of her chest because of her chronic kidney disease. I recommended a ventilation perfusion scan. The patient was admitted to Dr. Fall who accepted admission. I will place cardiology on consult. I did provide her with 80 mg of Lasix IV. The patient was ordered and pending. The patient is anticoagulated with Eliquis and I did order her home medications. She is currently awaiting a bed on the floor - Lab Data Result diagrams: 09/17/19 05:41 09/17/19 05:41 Lab Results 09/14/19 09/14/19 09/14/19 Range/Units 01:51 01:51 01:51 WBC 11.2 H (3.8-10.6) k/uL RBC 4.57 (3.80-5.40) m/uL Hgb 11.2 L (11.4-16.0) gm/dL Hct 38.0 (34.0-46.0) % MCV 83.2 (80.0-100.0) fL MCH 24.6 L (25.0-35.0) pg MCHC 29.6 L (31.0-37.0) g/dL RDW 15.5 (11.5-15.5) % Plt Count 295 (150-450) k/uL Neutrophils % 85 % Lymphocytes % 5 % Monocytes % 7 % Eosinophils % 1 % Basophils % 0 % Neutrophils # 9.4 H (1.3-7.7) k/uL Lymphocytes # 0.5 L (1.0-4.8) k/uL Monocytes # 0.8 (0-1.0) k/uL Eosinophils # 0.1 (0-0.7) k/uL Basophils # 0.0 (0-0.2) k/uL Hypochromasia Marked PT 12.4 H (9.0-12.0) sec INR 1.2 H (<1.2) APTT 25.3 (22.0-30.0) sec D-Dimer 3.60 H (<0.60) mg/L FEU Sodium 136 L (137-145) mmol/L Potassium 4.7 (3.5-5.1) mmol/L Chloride 99 (98-107) mmol/L Carbon Dioxide 30 (22-30) mmol/L Anion Gap 7 mmol/L BUN 43 H (7-17) mg/dL Creatinine 1.51 H (0.52-1.04) mg/dL Est GFR (CKD-EPI)AfAm 37 (>60 ml/min/1.73 sqM) Est GFR (CKD-EPI)NonAf 32 (>60 ml/min/1.73 sqM) Glucose 144 H (74-99) mg/dL POC Glucose (mg/dL) (75-99) mg/dL POC Glu Deputy Editor In Chief ID Plasma Lactic Acid Frank (0.7-2.0) mmol/L Calcium 9.9 (8.4-10.2) mg/dL Total Bilirubin 0.9 (0.2-1.3) mg/dL AST 19 (14-36) U/L ALT 13 (4-34) U/L Alkaline Phosphatase 124 (38-126) U/L Troponin I (0.000-0.034) ng/mL NT-Pro-B Natriuret Pep pg/mL Total Protein 6.6 (6.3-8.2) g/dL Albumin 3.4 L (3.5-5.0) g/dL Influenza Type A RNA (Not Detectd) Influenza Type B (PCR) (Not Detectd) 09/14/19 09/14/19 09/14/19 Range/Units 01:51 01:51 01:51 WBC (3.8-10.6) k/uL RBC (3.80-5.40) m/uL Hgb (11.4-16.0) gm/dL Hct (34.0-46.0) % MCV (80.0-100.0) fL MCH (25.0-35.0) pg MCHC (31.0-37.0) g/dL RDW (11.5-15.5) % Plt Count (150-450) k/uL Neutrophils % % Lymphocytes % % Monocytes % % Eosinophils % % Basophils % % Neutrophils # (1.3-7.7) k/uL Lymphocytes # (1.0-4.8) k/uL Monocytes # (0-1.0) k/uL Eosinophils # (0-0.7) k/uL Basophils # (0-0.2) k/uL Hypochromasia PT (9.0-12.0) sec INR (<1.2) APTT (22.0-30.0) sec D-Dimer (<0.60) mg/L FEU Sodium (137-145) mmol/L Potassium (3.5-5.1) mmol/L Chloride (98-107) mmol/L Carbon Dioxide (22-30) mmol/L Anion Gap mmol/L BUN (7-17) mg/dL Creatinine (0.52-1.04) mg/dL Est GFR (CKD-EPI)AfAm (>60 ml/min/1.73 sqM) Est GFR (CKD-EPI)NonAf (>60 ml/min/1.73 sqM) Glucose (74-99) mg/dL POC Glucose (mg/dL) (75-99) mg/dL POC Glu Deputy Editor In Chief ID Plasma Lactic Acid Frank 1.0 (0.7-2.0) mmol/L Calcium (8.4-10.2) mg/dL Total Bilirubin (0.2-1.3) mg/dL AST (14-36) U/L ALT (4-34) U/L Alkaline Phosphatase (38-126) U/L Troponin I <0.012 (0.000-0.034) ng/mL NT-Pro-B Natriuret Pep 7340 pg/mL Total Protein (6.3-8.2) g/dL Albumin (3.5-5.0) g/dL Influenza Type A RNA (Not Detectd) Influenza Type B (PCR) (Not Detectd) 09/14/19 09/14/19 Range/Units 02:08 02:12 WBC (3.8-10.6) k/uL RBC (3.80-5.40) m/uL Hgb (11.4-16.0) gm/dL Hct (34.0-46.0) % MCV (80.0-100.0) fL MCH (25.0-35.0) pg MCHC (31.0-37.0) g/dL RDW (11.5-15.5) % Plt Count (150-450) k/uL Neutrophils % % Lymphocytes % % Monocytes % % Eosinophils % % Basophils % % Neutrophils # (1.3-7.7) k/uL Lymphocytes # (1.0-4.8) k/uL Monocytes # (0-1.0) k/uL Eosinophils # (0-0.7) k/uL Basophils # (0-0.2) k/uL Hypochromasia PT (9.0-12.0) sec INR (<1.2) APTT (22.0-30.0) sec D-Dimer (<0.60) mg/L FEU Sodium (137-145) mmol/L Potassium (3.5-5.1) mmol/L Chloride (98-107) mmol/L Carbon Dioxide (22-30) mmol/L Anion Gap mmol/L BUN (7-17) mg/dL Creatinine (0.52-1.04) mg/dL Est GFR (CKD-EPI)AfAm (>60 ml/min/1.73 sqM) Est GFR (CKD-EPI)NonAf (>60 ml/min/1.73 sqM) Glucose (74-99) mg/dL POC Glucose (mg/dL) 132 H (75-99) mg/dL POC Glu Deputy Editor In Chief ID Adwoa Escobar Plasma Lactic Acid Frank (0.7-2.0) mmol/L Calcium (8.4-10.2) mg/dL Total Bilirubin (0.2-1.3) mg/dL AST (14-36) U/L ALT (4-34) U/L Alkaline Phosphatase (38-126) U/L Troponin I (0.000-0.034) ng/mL NT-Pro-B Natriuret Pep pg/mL Total Protein (6.3-8.2) g/dL Albumin (3.5-5.0) g/dL Influenza Type A RNA Not Detected (Not Detectd) Influenza Type B (PCR) Not Detected (Not Detectd) - EKG Data EKG Comments: EKG demonstrates a ventricularly paced rhythm. Rate of 70. QRS 146. QTC of 466. Appears consistent with flutter waves. No acute ST segment elevations. Disposition Clinical Impression: Hypoxia, CHF (congestive heart failure), Elevated d-dimer Disposition: ADMITTED IP TO THIS HOSP Condition: Good Is patient prescribed a controlled substance at d/c from ED?: No Decision to Admit Reason: Admit from EC Decision Date: 09/14/19 Decision Time: 03:17
[2019-09-14 06:44] LABS: Glucose,Whole Blood 135 mg/dL (75-99)
[2019-09-14] MEDS ORDERED: METOPROLOL TARTRATE 25 MG TAB PO SCH (09:00)
[2019-09-14] MEDS: APIXABAN 2.5 MG TABLET PO SCH ×2 (09:21→17:22)
[2019-09-14] MEDS: amLODIPine 5 MG TAB PO SCH ×2 (09:21→17:21)
[2019-09-14] MEDS: INSULIN ASPART (NovoLOG) 100 UNIT/ML VIAL SQ SCH ×6 (09:21→23:07)
--- NOTE | 2019-09-14 11:34 | P.HPIM ---
History of Present Illness H&P Date: 09/14/19 Chief Complaint: CALI This is an 84-year-old female patient currently residing at [facility] under the care of Dr. Peraza, previously under the care of Dr. Turner in the [facility] setting. Patient has a past medical history of diabetes mellitus type 2, hyperlipidemia, hypertension, right breast cancer diagnosed in 2013 with metastatic disease to the spine followed by Dr. Staples status post radiation therapy. History of chronic kidney disease stage III, DVT, chronic atrial fibrillation with bradycardia status post permanent pacemaker implantation on eliquis, chronic diastolic heart failure with known EF of 55-60% with mild LVH. While at the [facility], patient was developing increasing shortness of breath for the past several days with increased edema to the lower extremities as well. Patient received Lasix 80 mg IM at [facility] and apparently did not have very much urine output. She was previously on oral Lasix at 80 mg twice daily. Patient did not seem to be responding to the medication and was then transferred to [facility] emergency center for evaluation. Patient subsequently received another dose of IV Lasix 80 mg at approximate 3 AM. She has a female catheter in place with very little urine output. She was found to be afebrile, heart rate 60s to 80s, blood pressure 130/71 and pulse ox 92% on room air. WBC 11.2, hemoglobin 11.2. D-dimer was elevated at 3.6, creatinine 1.5, BNP 7340. Influenza A and B tested negative and lactic acid 1. EKG was a ventricular paced rhythm. Chest x-ray reveals mild chronic heart failure with pleural effusion. Pulmonary congestion slightly improved from last exam. Patient was evaluated while in nuclear medicine found lying flat on the table with no respiratory distress. Patient presents with bilateral lower extremity cellulitis and open wounds. Review of Systems Constitutional: Reports fatigue, Reports weakness, Denies chills, Denies fever, Denies weight loss Eyes: denies blurred vision, denies pain Ears, nose, mouth and throat: Reports nasal congestion, Reports sinus pressure, Denies dysphagia, Denies sore throat Cardiovascular: Reports edema, Reports leg edema, Reports shortness of breath, Denies chest pain Respiratory: Reports cough, Reports cough with sputum, Reports dyspnea, Denies excessive sputum, Denies hemoptysis Gastrointestinal: Denies abdominal pain, Denies diarrhea, Denies nausea, Denies vomiting Genitourinary: Denies dysuria, Denies hematuria, Denies urgency, Denies urinary frequency Musculoskeletal: Reports gait dysfunction, Reports muscle weakness, Denies frequent falls, Denies myalgias Integumentary: Reports wounds, Denies pruritus, Denies rash Neurological: Denies numbness, Denies weakness Psychiatric: Denies anxiety, Denies depression Endocrine: Denies fatigue, Denies weight change Past Medical History Past Medical History: Atrial Flutter, Cancer, Diabetes Mellitus, Deep Vein T hrombosis (DVT), Eye Disorder, Hyperlipidemia, Hypertension, Memory Impairment, Renal Disease Additional Past Medical History / Comment(s): hx. rt breast cancer-2014 has mets to spine(sx and radiation tx and currently reciving hormone blockers, metastasis to spine-gets tx.hx of anemia requiring blood transfusion, DVT leg years ago, uses walker, bone CA-sees dr staples, kidney stones(sx), uti's/urosepsis/bacteremia,ad foot fx-no sx just casted. 2016 fall/rhabomyolosis/akf. family stated pt has kidney disease but refused to seek tx per specilaist" History of Any Multi-Drug Resistant Organisms: None Reported Past Surgical History: Breast Surgery, Cholecystectomy, Heart Catheterization, Tubal Ligation Additional Past Surgical History / Comment(s): right mastectomy, cataracts removed, excision of lesion rt cheek, steroid inj in past for heel spur, lithotripsy Past Anesthesia/Blood Transfusion Reactions: No Reported Reaction Past Psychological History: No Psychological Hx Reported Smoking Status: Never smoker - Past Family History Mother Family Medical History: Diabetes Mellitus Father Family Medical History: Congestive Heart Failure (CHF) Medications and Allergies Home Medications Medication Instructions Recorded Confirmed Type Anastrozole [Arimidex] 1 mg PO DAILY@0800 05/14/15 09/14/19 History Aspirin [Adult Low Dose Aspirin EC] 81 mg PO DAILY@1700 10/06/17 09/14/19 H istory Apixaban [Eliquis] 2.5 mg PO BID@0800,1700 06/26/18 09/14/19 History Ascorbic Acid [Vitamin C] 500 mg PO DAILY@1200 06/26/18 09/14/19 History Cyanocobalamin (Vitamin B-12) 2,500 mcg PO DAILY@1200 06/26/18 09/14/19 History [Vitamin B-12] Acetaminophen Tab [Tylenol] 650 mg PO BID@0800,1700 07/18/18 09/14/19 History Bisacodyl [Dulcolax] 10 mg RECTAL DAILY PRN 07/18/18 09/14/19 History Na Phos,M-B/Na Phos,Di-Ba [Fleet 133 ml RECTAL DAILY PRN 07/18/18 09/14/19 History Adult] amLODIPine [Norvasc] 5 mg PO DAILY@1200 07/18/18 09/14/19 History Acetaminophen Tab [Tylenol] 650 mg PO Q6HR PRN tab 07/31/18 09/14/19 Rx Carvedilol [Coreg] 6.25 mg PO BID@0800,1700 09/14/19 09/14/19 History Cholecalciferol (Vitamin D3) 2,000 unit PO DAILY@0800 09/14/19 09/14/19 History [Vitamin D3] Clobetasol Propionate [Temovate 1 applic TOPICAL BID 09/14/19 09/14/19 History 0.05% Cream] Guaifenesin/Dextromethorphan 10 ml PO Q6H PRN 09/14/19 09/14/19 History [guaiFENesin DM] Insulin Aspart [NovoLOG] 5 units SQ AC-LUNCH@1100 09/14/19 09/14/19 History Insulin Aspart [NovoLOG] 11 units SQ AC-BRKFST@0700 09/14/19 09/14/19 History Insulin Aspart [NovoLOG] 14 units SQ AC-SUPPER@1630 09/14/19 09/14/19 History Insulin Detemir (Levemir) [Levemir] 26 unit SQ HS@2130 09/14/19 09/14/19 History Ipratropium-Albuterol Nebulize 3 ml INHALATION RT-QID@00,06,12,18 09/14/19 09/14/19 History [Duoneb 0.5 mg-3 mg/3 ml Soln] Magnesium Hydroxide [Milk of 7,200 mg PO DAILY PRN 09/14/19 09/14/19 History Magnesia Concentrate] Naproxen Sodium [Aleve] 220 mg PO Q12H PRN 09/14/19 09/14/19 History Xgeva Solution 120mg/1.7ml 120 mg SQ Q28D 09/14/19 09/14/19 History Bumetanide [BUMEX] 1 mg PO 1600 tab 09/18/19 Rx Bumetanide [BUMEX] 2 mg PO DAILY tab 09/18/19 Rx Ertapenem [INVanz] 1 gm IVPB DAILY@1200 #7 vial 09/18/19 Rx Fluticasone Nasal [place] [Flonase 2 spray EA NOSTRIL DAILY spr 09/18/19 Rx Nasal [place]] SILVER sulfADIAZINE Cream 1 applic TOPICAL DAILY applic 09/18/19 Rx [Silvadene 1% Cream] Allergies Allergy/AdvReac Type Severity Reaction Status Date / Time tuberculin, purified protein Allergy Unknown Verified 09/14/19 13:22 deriva tuberculin,PPD,multi-puncture Allergy Unknown Verified 09/14/19 13:22 codeine AdvReac Abdominal Verified 09/14/19 13:22 Pain Physical Exam Vitals: Vital Signs Temp Pulse Pulse Resp BP BP Pulse Ox 09/14/19 07:42 97.8 F 67 18 132/69 93 L 09/14/19 04:20 98 F 60 18 122/71 96 09/14/19 02:51 98.1 F 60 18 107/54 94 L 09/14/19 01:40 22 09/14/19 01:03 98.9 F 85 18 130/71 92 L Intake and Output 09/13/19 09/14/19 09/14/19 22:59 06:59 14:59 Other: Weight 77.111 kg Gen: This is an 84-year-old morbidly obese female. Patient is seen in the nuclear medicine room, lying flat on the table. No respiratory distress is noted. No accessory muscle usage or intercostal retractions. HEENT: Head is atraumatic, normocephalic. Pupils equal, round. Sclerae is anicteric. NECK: Supple. No JVD. No lymphadenopathy. No thyromegaly. LUNGS: Clear to auscultation. No wheezes or rhonchi. No intercostal retractions. HEART: Irregularly irregular rate and rhythm. Systolic murmur. ABDOMEN: Soft. Bowel sounds are present. No masses. No tenderness. EXTREMITIES: 2+ bilateral pedal edema with erythema, small open wounds, no significant drainage. NEUROLOGICAL: Patient is awake, alert and oriented x3. Cranial nerves 2 through 12 are grossly intact. Results CBC & Chem 7: 09/17/19 05:41 09/17/19 05:41 Labs: Abnormal Lab Results - Last 24 Hours (Table) 09/14/19 09/14/19 09/14/19 Range/Units 01:51 01:51 01:51 WBC 11.2 H (3.8-10.6) k/uL Hgb 11.2 L (11.4-16.0) gm/dL MCH 24.6 L (25.0-35.0) pg MCHC 29.6 L (31.0-37.0) g/dL Neutrophils # 9.4 H (1.3-7.7) k/uL Lymphocytes # 0.5 L (1.0-4.8) k/uL PT 12.4 H (9.0-12.0) sec INR 1.2 H (<1.2) D-Dimer 3.60 H (<0.60) mg/L FEU Sodium 136 L (137-145) mmol/L BUN 43 H (7-17) mg/dL Creatinine 1.51 H (0.52-1.04) mg/dL Glucose 144 H (74-99) mg/dL POC Glucose (mg/dL) (75-99) mg/dL Albumin 3.4 L (3.5-5.0) g/dL 09/14/19 09/14/19 Range/Units 02:08 06:39 WBC (3.8-10.6) k/uL Hgb (11.4-16.0) gm/dL MCH (25.0-35.0) pg MCHC (31.0-37.0) g/dL Neutrophils # (1.3-7.7) k/uL Lymphocytes # (1.0-4.8) k/uL PT (9.0-12.0) sec INR (<1.2) D-Dimer (<0.60) mg/L FEU Sodium (137-145) mmol/L BUN (7-17) mg/dL Creatinine (0.52-1.04) mg/dL Glucose (74-99) mg/dL POC Glucose (mg/dL) 132 H 135 H (75-99) mg/dL Albumin (3.5-5.0) g/dL Thrombosis Risk Factor Assmnt - DVT/VTE Prophylaxis DVT/VTE Prophylaxis: Pharmacologic Prophylaxis ordered Assessment and Plan Plan: 1. Acute hypoxic respiratory failure secondary to acute on chronic diastolic heart failure. Patient will be started on Bumex 1 mg IV push 3 times daily. Cardiology consult. Monitor I&O and daily weights. Patient had bladder scan done to assess for retention. Patient has female catheter in place. VQ scan in process, doubt pulmonary embolism. 2. Fluid overload with generalized anasarca. Continue Bumex. 3. Bilateral lower extremity cellulitis. Continue ceftriaxone and local wound care with Silvadene wraps. 4. Sinusitis and acute tracheobronchitis. Patient started on azithromycin and ceftriaxone, Flonase twice daily. 5. History of DVT. Continue eliquis 2.5 mg twice daily. 6. Chronic atrial fibrillation and history of bradycardia status post permanent pacemaker implantation. Continue eliquis 2.5 mg twice daily, Lopressor 25 mg twice daily. 7. Diabetes mellitus type 2. Continue Levemir 30 units at bedtime, NovoLog 5 units with meals and NovoLog scale before meals and at bedtime. 8. Hypertension. 9. Hyperlipidemia. 10. 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 Staples, status post radiation therapy. 11. Chronic kidney disease stage III. Baseline creatinine 1.31.4. Monitor closely. 12. GI prophylaxis. 13. DVT prophylaxis. Eliquis Patient will be admitted to the hospital for a minimum of 2 night stay. Discharge plan: Return to [facility] Impression and plan of care have been directed as dictated by the signing ph ysician. Nini Malone nurse practitioner acting as scribe for signing physician.
--- NOTE | 2019-09-14 12:05 | NM ---
EXAMINATION TYPE: NM pul vent and perfuse DATE OF EXAM: 09/14/2019 COMPARISON: Chest x-ray dated 09/14/2019. HISTORY: Shortness of breath and elevated d-dimer TECHNIQUE: Utilizing inhalation of 69.6 mCi Tc 99m DTPA aerosol and intravenous injection of 4.9 mCi of Tc 99m MAA, ventilation and perfusion images are acquired post injection in multiple projections. FINDINGS: There is patchy ventilation and perfusion in both lungs in keeping with the patient's known heart oneil lure. There are no VQ mismatches. IMPRESSION: This examination is low probability for pulmonary embolus.
--- NOTE | 2019-09-14 12:09 | P.CRDCN ---
History of Present Illness Consult date: 09/14/19 Chief complaint: Increasing shortness of breath History of present illness: This is a pleasant 84-year-old female patient who sees Dr. Cardozo are regular basis with a past medical history significant for long-standing persistent atrial fibrillation on oral anticoagulation, status post permanent pacemaker implantation in 2018, chronic diastolic congestive heart failure, obesity, hypertension, and dyslipidemia as well as chronic kidney disease, presented to the hospital complaining of increasing in the shortness of breath as well as lower extremities edema. The patient somewhat is a poor historian and she is a resident at [facility]. The history was taken from the chart as well as from her family in addition to the patient herself. For the last 6 weeks, the patient has been experiencing increasing in the shortness of breath associated with increasing in the lower extremities edema area the patient family stated that the patient gained about 30 pounds within 6 weeks. The patient denies any symptoms of chest pain or chest discomfort, dizziness, heart racing, and she never had any syncope. The physical examination is consistent with heart failure. The patient does have severe pitting edema bilaterally. On examination she does have diminished breathing sounds and wheezing bilaterally as well. The BNP came in to be at 7000. The chest x-ray did not show any acute abnormalities. The EKG showed underlying atrial fibrillation with ventricular paced rhythm. The creatinine is mildly abnormal which is his care baseline. The patient was given Lasix IV at the [facility] without any response and also she was given Lasix IV here at the ER without any response and without any urine output. D-dimer is slightly abnormal and she is in process of getting a VQ scan. I requested also to have a bladder scan before we start the patient on Lasix drip and see she responds to that and putting urine output. Meanwhile I would resume her oral anticoagulation. I will obtain an echocardiogram was Doppler. Past Medical History Past Medical History: Atrial Flutter, Cancer, Diabetes Mellitus, Deep Vein Thrombosis (DVT), Eye Disorder, Hyperlipidemia, Hypertension, Memory Impairment, Renal Disease Additional Past Medical History / Comment(s): hx. rt breast cancer-2014 has mets to spine(sx and radiation tx and currently reciving hormone blockers, metastasis to spine-gets tx.hx of anemia requiring blood transfusion, DVT leg years ago, us es walker, bone CA-sees dr hu, kidney stones(sx), uti's/urosepsis/bacteremia,ad foot fx-no sx just casted. 2016 fall/rhabomyolosis/akf. family stated pt has kidney disease but refused to seek tx per specilaist" History of Any Multi-Drug Resistant Organisms: None Reported Past Surgical History: Breast Surgery, Cholecystectomy, Heart Catheterization, Tubal Ligation Additional Past Surgical History / Comment(s): right mastectomy, cataracts removed, excision of lesion rt cheek, steroid inj in past for heel spur, lithotr ipsy Past Anesthesia/Blood Transfusion Reactions: No Reported Reaction Past Psychological History: No Psychological Hx Reported Smoking Status: Never smoker - Past Family History Mother Family Medical History: Diabetes Mellitus Father Family Medical History: Congestive Heart Failure (CHF) Medications and Allergies Home Medications Medication Instructions Recorded Confirmed Type Anastrozole [Arimidex] 1 mg PO DAILY@0800 05/14/15 07/18/18 History Aspirin [Adult Low Dose Aspirin EC] 81 mg PO DAILY@1700 10/06/17 07/18/18 History Apixaban [Eliquis] 2.5 mg PO BID@0800,1700 06/26/18 07/18/18 History Ascorbic Acid [Vitamin C] 500 mg PO DAILY@1700 06/26/18 07/18/18 History Cyanocobalamin (Vitamin B-12) 2,500 mcg PO DAILY@1700 06/26/18 07/18/18 History [Vitamin B-12] Acetaminophen Tab [Tylenol] 650 mg PO Q4H PRN 07/18/18 07/18/18 History Bisacodyl [Dulcolax] 10 mg RECTAL DAILY PRN 07/18/18 07/18/18 History Glucerna Shake 1 can PO DAILY@2100 07/18/18 07/18/18 History Magnesium Hydroxide [Milk of 2,400 mg PO DAILY PRN 07/18/18 07/18/18 History Magnesia] Na Phos,M-B/Na Phos,Di-Ba [Fleet 133 ml RECTAL DAILY PRN 07/18/18 07/18/18 History Adult] amLODIPine [Norvasc] 5 mg PO BID@0800,1700 07/18/18 07/18/18 History Acetaminophen Tab [Tylenol] 650 mg PO Q6HR PRN tab 07/31/18 Rx Benzocaine/Menthol Lozeng [Cepacol 1 each MUCOUS MEM Q4HR PRN lozenge 07/31/18 Rx lozenge] Furosemide [Lasix] 40 mg PO BID@0900,1600 tab 07/31/18 Rx Metoprolol Tartrate [Lopressor] 25 mg PO BID tab 07/31/18 Rx INSULIN ASPART (NovoLOG) [NovoLOG 5 unit SQ AC-TID vial 08/01/18 Rx (formulary)] Insulin Detemir (Levemir) [Levemir] 30 unit SQ HS@2130 syr 08/01/18 Rx Allergies Allergy/AdvReac Type Severity Reaction Status Date / Time codeine Allergy Abdominal Verified 07/18/18 09:35 Pain Physical Exam Vitals: Vital Signs Temp Pulse Pulse Resp BP BP Pulse Ox 09/14/19 09:01 20 09/14/19 07:42 97.8 F 67 18 132/69 93 L 09/14/19 04:20 98 F 60 18 122/71 96 09/14/19 02:51 98.1 F 60 18 107/54 94 L 09/14/19 01:40 22 09/14/19 01:03 98.9 F 85 18 130/71 92 L Intake and Output 09/13/19 09/14/19 09/14/19 22:59 06:59 14:59 Intake Total 240 Balance 240 Intake: Oral 240 Other: Weight 77.111 kg - Constitutional General appearance: no acute distress - Respiratory Respiratory: bilateral: diminished, wheezing - Cardiovascular Rhythm: irregularly irregular Heart sounds: normal: S1, S2 Abnormal Heart Sounds: systolic murmur Results 09/14/19 01:51 09/14/19 01:51 Cardiac Enzymes 09/14/19 09/14/19 Range/Units 01:51 01:51 AST 19 (14-36) U/L Troponin I <0.012 (0.000-0.034) ng/mL Coagulation 09/14/19 Range/Units 01:51 PT 12.4 H (9.0-12.0) sec APTT 25.3 (22.0-30.0) sec CBC 09/14/19 Range/Units 01:51 WBC 11.2 H (3.8-10.6) k/uL RBC 4.57 (3.80-5.40) m/uL Hgb 11.2 L (11.4-16.0) gm/dL Hct 38.0 (34.0-46.0) % Plt Count 295 (150-450) k/uL Comprehensive Metabolic Panel 09/14/19 Range/Units 01:51 Sodium 136 L (137-145) mmol/L Potassium 4.7 (3.5-5.1) mmol/L Chloride 99 (98-107) mmol/L Carbon Dioxide 30 (22-30) mmol/L BUN 43 H (7-17) mg/dL Creatinine 1.51 H (0.52-1.04) mg/dL Glucose 144 H (74-99) mg/dL Calcium 9.9 (8.4-10.2) mg/dL AST 19 (14-36) U/L ALT 13 (4-34) U/L Alkaline Phosphatase 124 (38-126) U/L Total Protein 6.6 (6.3-8.2) g/dL Albumin 3.4 L (3.5-5.0) g/dL Current Medications Generic Name Dose Route Start Last Admin Trade Name Freq PRN Reason Stop Dose Admin Amlodipine Besylate 5 mg 09/14/19 08:00 09/14/19 09:21 Norvasc PO 5 mg BID@0800,1700 [facility] Administration Anastrozole 1 mg 09/14/19 08:00 Arimidex PO DAILY@0800 [facility] Apixaban 2.5 mg 09/14/19 08:00 09/14/19 09:21 Eliquis PO 2.5 mg BID@0800,1700 [facility] Administration Aspirin 81 mg 09/14/19 17:00 Aspirin PO DAILY@1700 [facility] Bumetanide 1 mg 09/14/19 10:30 Bumex IVP TID [facility] Fluticasone Propionate 2 spray 09/14/19 11:30 Flonase Nasal [place] EA NOSTRIL DAILY [facility] Ceftriaxone Sodium 1 gm/ 50 mls @ 100 mls/hr 09/14/19 10:30 Sodium Chloride IVPB Q24HR [facility] Azithromycin 500 mg/ Sodium 250 mls @ 250 mls/hr 09/14/19 10:30 Chloride IVPB DAILY [facility] Insulin Aspart 5 unit 09/14/19 07:30 09/14/19 09:21 Novolog SQ 5 unit AC-TID [facility] Administration Insulin Aspart 0 unit 09/14/19 12:30 Novolog SQ ACHS [facility] Protocol Insulin Detemir 30 unit 09/14/19 21:30 Levemir SQ HS@2130 [facility] Metoprolol Tartrate 25 mg 09/14/19 09:00 09/14/19 09:21 Lopressor PO 25 mg BID [facility] Administration Naloxone HCl 0.2 mg 09/14/19 03:17 Narcan IV Q2M PRN Opioid Reversal Intake and Output 09/13/19 09/14/19 09/14/19 22:59 06:59 14:59 Intake Total 240 Balance 240 Intake: Oral 240 Other: Weight 77.111 kg 09/14/19 01:51 09/14/19 01:51 Assessment and Plan Assessment: Assessment #1 acute exacerbation of congestive heart failure secondary to diastole dysfunction #2 long-standing persistent atrial fibrillation oral anticoagulation #3 status post permanent pacemaker #4 known mild aortic stenosis #5 multiple comorbid conditions Plan #1 rule out PE. She is in process of getting a VQ scan #2 perform a bladder scan to assess the residual urine in the bladder #3 consider starting the patient on Lasix drip #4 obtain an echocardiogram was Doppler #5 follow-up with the patient Thank you for allowing us participate in her care
[2019-09-14] MEDS: FLUTICASONE 50MCG/SPRAY NASAL 16GM EA NOSTRIL SCH (13:12)
[2019-09-14 13:16] LABS: Glucose,Whole Blood 141 mg/dL (75-99)
[2019-09-14] MEDS: BUMETANIDE 0.25 MG/ML 4 ML VIAL IVP SCH ×3 (13:17→21:11)
[2019-09-14] MEDS ORDERED: guaiFENesin-DM 100-10MG/5ML 10 ML CUP PO PRN (13:44)
[2019-09-14] MEDS ORDERED: MAGNESIUM HYDROXIDE 2,400 MG/10 ML CUP PO PRN ×2 (13:44→13:51)
[2019-09-14] MEDS: ANASTROZOLE 1 MG TAB PO SCH (13:57)
[2019-09-14] MEDS: AZITHROMYCIN 500 MG in SODIUM CHLORIDE 0.9% 250 ML IVPB SCH (15:17)
--- NOTE | 2019-09-14 16:01 | ECHOF ---
Referral Reason:CHF MEASUREMENTS -------- HEIGHT: 167.6 cm WEIGHT: 77.1 kg BP: 132/69 RVIDd: 3.9 cm (< 3.3) IVSd: 1.8 cm (0.6 - 1.1) LVIDd: 2.7 cm (3.9 - 5.3) LVPWd: 1.9 cm (0.6 - 1.1) IVSs: 1.9 cm LVIDs: 2.0 cm LVPWs: 2.4 cm LAESV Index (A-L): 38.92 ml/m Ao Diam: 3.3 cm (2.0 - 3.7) AV Cusp: 1.6 cm (1.5 - 2.6) LA Diam: 4.3 cm (2.7 - 3.8) RAP: 5.00 mmHg RVSP: 32.70 mmHg FINDINGS -------- Undetermined rhythm. This was a technically difficult study with suboptimal apical views. The left ventricular size is normal. There is severe concentric left ventricular hypertrophy. Ove rall left ventricular systolic function is low-normal with, an EF between 50 - 55 %. Left ventricul ar fillimg pressure cannot be estimated due to severe mitral annular calcification. The right ventricle is moderately enlarged. LA is moderately dilated 34-39 ml/m2 The right atrium is mildly enlarged. xx ml of Lumason was utilized for enhancement of images. Interatrial and interventricular septum intact. There is moderate aortic valve sclerosis. There is no evidence of aortic regurgitation. There is no evidence of aortic stenosis. Severe mitral annular calcification present. Moderate mitral regurgitation is present. Mild tricuspid regurgitation present. There is borderline pulmonary hypertension. The right ventr icular systolic pressure, as measured by Doppler, is 32.70mmHg. There is no pulmonic regurgitation present. The aortic root size is normal. IVC Not well visulized. There is no pericardial effusion. CONCLUSIONS -------- 1. Undetermined rhythm. 2. This was a technically difficult study with suboptimal apical views. 3. The left ventricular size is normal. 4. There is severe concentric left ventricular hypertrophy. 5. Overall left ventricular systolic function is low-normal with, an EF between 50 - 55 %. 6. Left ventricular fillimg pressure cannot be estimated due to severe mitral annular calcification. 7. The right ventricle is moderately enlarged. 8. LA is moderately dilated 34-39 ml/m2 9. The right atrium is mildly enlarged. 10. xx ml of Lumason was utilized for enhancement of images. 11. Interatrial and interventricular septum intact. 12. There is moderate aortic valve sclerosis. 13. There is no evidence of aortic regurgitation. 14. There is no evidence of aortic stenosis. 15. Severe mitral annular calcification present. 16. Moderate mitral regurgitation is present. 17. Mild tricuspid regurgitation present. 18. There is borderline pulmonary hypertension. 19. The right ventricular systolic pressure, as measured by Doppler, is 32.70mmHg. 20. There is no pulmonic regurgitation present. 21. The aortic root size is normal. 22. IVC Not well visulized. 23. There is no pericardial effusion. TRAVEL ASSISTANT: Trixie Clayton RDCS
[2019-09-14] MEDS: SILVER sulfADIAZINE Cream 400 GM 1 APPLIC APPLIC TOPICAL SCH (17:22)
[2019-09-14] MEDS: ASPIRIN 81 MG PO SCH (17:22)
[2019-09-14] MEDS: CARVEDILOL 6.25 MG TAB PO SCH (17:22)
[2019-09-14 17:27] LABS: Glucose,Whole Blood 171 mg/dL (75-99)
[2019-09-14] MEDS: IPRATROPIUM-ALBUTEROL 3 ML NEB INHALATION SCH (19:22)
[2019-09-14 20:46] LABS: Glucose,Whole Blood 144 mg/dL (75-99)
[2019-09-14] MEDS ORDERED: NON FORMULARY DRUG (Glucerna Shake 1 CAN) PO SCH (21:00)
[2019-09-14] MEDS: INSULIN DETEMIR (LEVEMIR) 100 UNIT/ML SYR SQ SCH (21:03)
[2019-09-14] MEDS: CLOBETASOL PROP 0.05% CR 15GM TOPICAL SCH (21:11)
[2019-09-14] MEDS ORDERED: INSULIN DETEMIR (LEVEMIR) 100 UNIT/ML SYR SQ SCH (21:30)
[2019-09-15] MEDS: IPRATROPIUM-ALBUTEROL 3 ML NEB INHALATION SCH ×4 (00:08→21:39)
[2019-09-15 00:52] LABS: Appearance,Urine Turbid (Clear); Bacteria,Urine Many /hpf; Bilirubin,Urine Negative (Negative); Blood,Urine Moderate (Negative); Budding Yeast,Urine Many /hpf; Color,Urine Yellow; Glucose,Urine (UA) Negative (Negative); Hyaline Casts,Urine 31 /lpf (0-2); Ketones,Urine Negative (Negative); Leukocyte Esterase,Urine Large (Negative); Mucus,Urine Few /hpf; Nitrite,Urine Negative (Negative); PH, Urine 5.5 (5.0-8.0); Protein,Urine 2+ (Negative); RBC,Urine 70 /hpf (0-5); Squamous Epithelial Cell,Urine 7 /hpf (0-4); Urobilinogen,Urine <2.0 mg/dL (<2.0); WBC,Urine >182 /hpf (0-5)
[2019-09-15 00:55] LABS: Specific Gravity,Urine 1.011 (1.001-1.035)
[2019-09-15 05:52] LABS: Glucose,Whole Blood 183 mg/dL (75-99)
[2019-09-15 06:33] LABS: Calcium 9.1 mg/dL (8.4-10.2)
[2019-09-15] MEDS: INSULIN ASPART (NovoLOG) 100 UNIT/ML VIAL SQ SCH ×7 (06:39→21:51)
[2019-09-15 07:10] LABS: Basophils % (A) 0 %; Eosinophils # (A) 0.1 k/uL (0-0.7); Eosinophils % (A) 1 %; HCT 36.2 % (34.0-46.0); HGB 11.1 gm/dL (11.4-16.0); Hypochromasia Marked; Lymphocytes # (A) 0.7 k/uL (1.0-4.8); Lymphocytes % (A) 8 %; MCH 25.6 pg (25.0-35.0); MCHC 30.8 g/dL (31.0-37.0); MCV 83.4 fL (80.0-100.0); Mean Platelet Volume 7.7; Monocytes # (A) 0.8 k/uL (0-1.0); Monocytes % (A) 10 %; Neutrophils # (A) 6.3 k/uL (1.3-7.7); Neutrophils % (A) 77 %; Platelet Count 222 k/uL (150-450); RBC 4.34 m/uL (3.80-5.40); RDW 15.8 % (11.5-15.5); WBC 8.1 k/uL (3.8-10.6)
[2019-09-15] MEDS: BUMETANIDE 0.25 MG/ML 4 ML VIAL IVP SCH ×3 (09:41→21:51)
[2019-09-15] MEDS: APIXABAN 2.5 MG TABLET PO SCH ×2 (09:46→17:24)
[2019-09-15] MEDS: amLODIPine 5 MG TAB PO SCH ×2 (09:46→17:24)
[2019-09-15] MEDS: ANASTROZOLE 1 MG TAB PO SCH (09:46)
[2019-09-15] MEDS: CHOLECALCIFEROL 1,000 UNIT TAB PO SCH (09:46)
[2019-09-15] MEDS: CARVEDILOL 6.25 MG TAB PO SCH ×2 (09:46→17:24)
[2019-09-15] MEDS: CLOBETASOL PROP 0.05% CR 15GM TOPICAL SCH ×2 (09:47→21:53)
[2019-09-15] MEDS: FLUTICASONE 50MCG/SPRAY NASAL 16GM EA NOSTRIL SCH (09:48)
--- NOTE | 2019-09-15 10:40 | P.PN ---
Subjective Progress Note Date: 09/15/19 This is an 84-year-old female patient currently residing at [facility] under the care of Dr. Peraza, previously under the care of Dr. Turner in the outpatient setting. Patient has a past medical history of diabetes mellitus type 2, hyperlipidemia, hypertension, right breast cancer diagnosed in 2013 with metastatic disease to the spine followed by Dr. Staples status post radiation therapy. History of chronic kidney disease stage III, DVT, chronic atrial fibrillation with bradycardia status post permanent pacemaker implantation on eliquis, chronic diastolic heart failure with known EF of 55-60% with mild LVH. While at the half-way, patient was developing increasing shortness of breath for the past several days with increased edema to the lower extremities as well. Patient received Lasix 80 mg IM at [facility] and apparently did not have very much urine output. She was previously on oral Lasix at 80 mg twice daily. Patient did not seem to be responding to the medication and was then transferred to [facility] emergency center for evaluation. Patient subsequently received another dose of IV Lasix 80 mg at approximate 3 AM. She has a female catheter in place with very little urine output. She was found to be afebrile, heart rate 60s to 80s, blood pressure 130/71 and pulse ox 92% on room air. WBC 11.2, hemoglobin 11.2. D-dimer was elevated at 3.6, creatinine 1.5, BNP 7340. Influenza A and B tested negative and lactic acid 1. EKG was a ventricular paced rhythm. Chest x-ray reveals mild chronic heart failure with pleural effusion. Pulmonary congestion slightly improved from last exam. Patient was evaluated while in nuclear medicine found lying flat on the table with no respiratory distress. Patient presents with bilateral lower extremity cellulitis and open wounds. 09/15: Patient is seen today on the cardiac stepdown unit. Patient has been af ebrile, heart rate 60, blood pressure 118/64, pulse ox 93% on 2 L nasal cannula. Repeat lab work reveals unremarkable CBC, sodium 132, BUN 44 and creatinine 1.50. Blood sugars running between 169 183. Urinalysis turbid, leukoesterase large, WBCs greater than 182 with many WBC clumps, 7 epithelial cells. Urine culture is in progress. Blood cultures status received. Patient had bladder scan done yesterday on one occurrence at 546 ML's and a second bladder scan was 675. Patient has had a Alfredo catheter in place. She was started on IV Bumex yesterday and has been diuresing. Local wound care has been addressed with Silvadene wraps to bilateral lower legs. VQ scan was low probability for PE. Echocardiogram reveals EF of 50-55%, severe concentric left hypertrophy, moderate mitral regurgitation, mild tricuspid regurgitation, borderline pulmonary hypertension Objective - Vital Signs Vital signs: Vital Signs Temp 98.5 F 09/15/19 08:00 Pulse 64 09/15/19 08:34 Resp 20 09/15/19 08:00 BP 118/64 09/15/19 08:00 Pulse Ox 93 L 09/15/19 08:00 Intake & Output 09/14/19 09/15/19 09/15/19 18:59 06:59 18:59 Intake Total 300 Output Total 650 350 300 Balance -350 -350 -300 Weight 77.111 kg 96.5 kg Intake: IV 300 Azithromycin 500 mg In 250 Sodium Chloride 0.9% 250 ml @ 250 mls/hr IVPB DAILY [facility] Rx#:[id number] cefTRIAXone 1 gm In 50 Sodium Chloride 0.9% 50 ml @ 100 mls/hr IVPB Q24HR [facility] Rx#:[id number] Oral 0 Output: Urine 650 350 300 Other: Voiding Method Indwelling Catheter - Exam Review of Systems Constitutional: Reports fatigue, Reports weakness, Denies chills, Denies fever, Denies weight loss Eyes: denies blurred vision, denies pain Ears, nose, mouth and throat: Reports nasal congestion, Reports sinus pressure, Denies dysphagia, Denies sore throat Cardiovascular: Reports edema, Reports leg edema, Reports shortness of breath improved, Denies chest pain Respiratory: Reports cough, Reports cough with sputum, Reports dyspnea, Denies excessive sputum, Denies hemoptysis Gastrointestinal: Denies abdominal pain, Denies diarrhea, Denies nausea, Denies vomiting Genitourinary: Denies dysuria, Denies hematuria, Denies urgency, Denies urinary frequency Musculoskeletal: Reports gait dysfunction, Reports muscle weakness, Denies frequent falls, Denies myalgias Integumentary: Reports wounds, Denies pruritus, Denies rash Neurological: Denies numbness, Denies weakness Psychiatric: Denies anxiety, Denies depression Endocrine: Denies fatigue, Denies weight change Physical examination Gen: This is an 84-year-old morbidly obese female. Patient resting in bed. No respiratory distress is noted. HEENT: Head is atraumatic, normocephalic. Pupils equal, round. Sclerae is anicteric. NECK: Supple. No JVD. No lymphadenopathy. No thyromegaly. LUNGS: Clear to auscultation. No wheezes or rhonchi. No intercostal retractions. HEART: Irregularly irregular rate and rhythm. Systolic murmur. ABDOMEN: Soft. Bowel sounds are present. No masses. No tenderness. EXTREMITIES: 2+ bilateral pedal edema Jacinto wrap/dressings in place bilaterally, no significant drainage. NEUROLOGICAL: Patient is awake, alert and oriented x3. Cranial nerves 2 through 12 are grossly intact. - Labs CBC & Chem 7: 09/15/19 05:37 09/15/19 05:37 Labs: Abnormal Lab Results - Last 24 Hours (Table) 09/14/19 09/14/19 09/14/19 Range/Units 13:14 17:00 20:43 Hgb (11.4-16.0) gm/dL MCHC (31.0-37.0) g/dL RDW (11.5-15.5) % Lymphocytes # (1.0-4.8) k/uL Sodium (137-145) mmol/L BUN (7-17) mg/dL Creatinine (0.52-1.04) mg/dL Glucose (74-99) mg/dL POC Glucose (mg/dL) 141 H 171 H 144 H (75-99) mg/dL Urine Appearance (Clear) Urine Protein (Negative) Urine Blood (Negative) Ur Leukocyte Esterase (Negative) Urine RBC (0-5) /hpf Urine WBC (0-5) /hpf Urine WBC Clumps (None) /hpf Ur Squamous Epith Cells (0-4) /hpf Urine Bacteria (None) /hpf Hyaline Casts (0-2) /lpf Urine Mucus (None) /hpf Urine Yeast (Budding) (None) /hpf 09/14/19 09/15/19 09/15/19 Range/Units 21:16 05:37 05:37 Hgb 11.1 L (11.4-16.0) gm/dL MCHC 30.8 L (31.0-37.0) g/dL RDW 15.8 H (11.5-15.5) % Lymphocytes # 0.7 L (1.0-4.8) k/uL Sodium 132 L (137-145) mmol/L BUN 44 H (7-17) mg/dL Creatinine 1.50 H (0.52-1.04) mg/dL Glucose 169 H (74-99) mg/dL POC Glucose (mg/dL) (75-99) mg/dL Urine Appearance Turbid H (Clear) Urine Protein 2+ H (Negative) Urine Blood Moderate H (Negative) Ur Leukocyte Esterase Large H (Negative) Urine RBC 70 H (0-5) /hpf Urine WBC >182 H (0-5) /hpf Urine WBC Clumps Many H (None) /hpf Ur Squamous Epith Cells 7 H (0-4) /hpf Urine Bacteria Many H (None) /hpf Hyaline Casts 31 H (0-2) /lpf Urine Mucus Few H (None) /hpf Urine Yeast (Budding) Many H (None) /hpf 09/15/19 Range/Units 05:51 Hgb (11.4-16.0) gm/dL MCHC (31.0-37.0) g/dL RDW (11.5-15.5) % Lymphocytes # (1.0-4.8) k/uL Sodium (137-145) mmol/L BUN (7-17) mg/dL Creatinine (0.52-1.04) mg/dL Glucose (74-99) mg/dL POC Glucose (mg/dL) 183 H (75-99) mg/dL Urine Appearance (Clear) Urine Protein (Negative) Urine Blood (Negative) Ur Leukocyte Esterase (Negative) Urine RBC (0-5) /hpf Urine WBC (0-5) /hpf Urine WBC Clumps (None) /hpf Ur Squamous Epith Cells (0-4) /hpf Urine Bacteria (None) /hpf Hyaline Casts (0-2) /lpf Urine Mucus (None) /hpf Urine Yeast (Budding) (None) /hpf Assessment and Plan Plan: 1. Acute hypoxic respiratory failure secondary to acute on chronic diastolic heart failure. Continue Bumex 1 mg IV push 3 times daily. Cardiology consult appreciated. Monitor I&O and daily weights. Patient has female catheter in place. VQ scan negative for pulmonary embolism. 2. Fluid overload with generalized anasarca. Continue Bumex. 3. Bilateral lower extremity cellulitis. Continue ceftriaxone and local wound care with Silvadene wraps. 4. Sinusitis and acute tracheobronchitis. Patient started on azithromycin and ceftriaxone, Flonase twice daily. 5. History of DVT. Continue eliquis 2.5 mg twice daily. 6. Chronic atrial fibrillation and history of bradycardia status post permanent pacemaker implantation. Continue eliquis 2.5 mg twice daily, Lopressor 25 mg twice daily. 7. Diabetes mellitus type 2. Continue Levemir 30 units at bedtime, NovoLog 5 units with meals and NovoLog scale before meals and at bedtime. 8. Hypertension. Continue Norvasc with parameters, Coreg. 9. Hyperlipidemia. Not currently on statin. 10. 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 Staples, status post radiation therapy. 11. Chronic kidney disease stage III. Baseline creatinine 1.31.4. Monitor closely. 12. GI prophylaxis. 13. DVT prophylaxis. Eliquis 14. Urinary retention requiring Alfredo catheter placement. Discharge plan: Return to [facility] Impression and plan of care have been directed as dictated by the signing physician. Nini Malone nurse practitioner acting as scribe for signing physician.
[2019-09-15 12:09] LABS: Glucose,Whole Blood 194 mg/dL (75-99)
[2019-09-15] MEDS: AZITHROMYCIN 500 MG in SODIUM CHLORIDE 0.9% 250 ML IVPB SCH ×2 (12:45→13:23)
--- NOTE | 2019-09-15 13:01 | P.PN ---
Subjective Progress Note Date: 09/15/19 This is a pleasant 84-year-old female patient who sees Dr. Cardozo are regular basis with a past medical history significant for long-standing persistent atrial fibrillation on oral anticoagulation, status post permanent pacemaker implantation in 2018, chronic diastolic congestive heart failure, obesity, hypertension, and dyslipidemia as well as chronic kidney disease, presented to the hospital complaining of increasing in the shortness of breath as well as lower extremities edema. The patient somewhat is a poor historian and she is a resident at [facility]. Patient was initiated on IV Bumex, overall has been diuresing well. Her weight in the record isn't accurate. She came in at 77 kg its documented at 96 kg today. Objective - Vital Signs Vital signs: Vital Signs Temp 98.5 F 09/15/19 08:00 Pulse 66 09/15/19 12:15 Resp 20 09/15/19 08:00 BP 118/64 09/15/19 08:00 Pulse Ox 93 L 09/15/19 08:00 Intake & Output 09/14/19 09/15/19 09/15/19 18:59 06:59 18:59 Intake Total 300 Output Total 650 350 300 Balance -350 -350 -300 Weight 77.111 kg 96.5 kg Intake: IV 300 Azithromycin 500 mg In 250 Sodium Chloride 0.9% 250 ml @ 250 mls/hr IVPB DAILY [place] Rx#:[id number] cefTRIAXone 1 gm In 50 Sodium Chloride 0.9% 50 ml @ 100 mls/hr IVPB Q24HR [place] Rx#:[id number] Oral 0 Output: Urine 650 350 300 Other: Voiding Method Indwelling Catheter - Exam HEENT: Head is atraumatic, normocephalic. Pupils equal, round. Sclerae is anicteric. NECK: Supple. No JVD. No lymphadenopathy. No thyromegaly. LUNGS: Clear with diminished air entry to the bases bilaterally . No intercostal retractions. HEART: Irregularly irregular rate and rhythm. Systolic murmur. ABDOMEN: Soft. Bowel sounds are present. No masses. No tenderness. EXTREMITIES: 2+ bilateral pedal edema Jacinto wrap/dressings in place bilaterally, no significant drainage. NEUROLOGICAL: Patient is awake, alert and oriented x3. Cranial nerves 2 through 12 are grossly intact. - Labs CBC & Chem 7: 09/15/19 05:37 09/15/19 05:37 Labs: Abnormal Lab Results - Last 24 Hours (Table) 09/14/19 09/14/19 09/14/19 Range/Units 13:14 17:00 20:43 Hgb (11.4-16.0) gm/dL MCHC (31.0-37.0) g/dL RDW (11.5-15.5) % Lymphocytes # (1.0-4.8) k/uL Sodium (137-145) mmol/L BUN (7-17) mg/dL Creatinine (0.52-1.04) mg/dL Glucose (74-99) mg/dL POC Glucose (mg/dL) 141 H 171 H 144 H (75-99) mg/dL Urine Appearance (Clear) Urine Protein (Negative) Urine Blood (Negative) Ur Leukocyte Esterase (Negative) Urine RBC (0-5) /hpf Urine WBC (0-5) /hpf Urine WBC Clumps (None) /hpf Ur Squamous Epith Cells (0-4) /hpf Urine Bacteria (None) /hpf Hyaline Casts (0-2) /lpf Urine Mucus (None) /hpf Urine Yeast (Budding) (None) /hpf 09/14/19 09/15/19 09/15/19 Range/Units 21:16 05:37 05:37 Hgb 11.1 L (11.4-16.0) gm/dL MCHC 30.8 L (31.0-37.0) g/dL RDW 15.8 H (11.5-15.5) % Lymphocytes # 0.7 L (1.0-4.8) k/uL Sodium 132 L (137-145) mmol/L BUN 44 H (7-17) mg/dL Creatinine 1.50 H (0.52-1.04) mg/dL Glucose 169 H (74-99) mg/dL POC Glucose (mg/dL) (75-99) mg/dL Urine Appearance Turbid H (Clear) Urine Protein 2+ H (Negative) Urine Blood Moderate H (Negative) Ur Leukocyte Esterase Large H (Negative) Urine RBC 70 H (0-5) /hpf Urine WBC >182 H (0-5) /hpf Urine WBC Clumps Many H (None) /hpf Ur Squamous Epith Cells 7 H (0-4) /hpf Urine Bacteria Many H (None) /hpf Hyaline Casts 31 H (0-2) /lpf Urine Mucus Few H (None) /hpf Urine Yeast (Budding) Many H (None) /hpf 09/15/19 09/15/19 Range/Units 05:51 11:58 Hgb (11.4-16.0) gm/dL MCHC (31.0-37.0) g/dL RDW (11.5-15.5) % Lymphocytes # (1.0-4.8) k/uL Sodium (137-145) mmol/L BUN (7-17) mg/dL Creatinine (0.52-1.04) mg/dL Glucose (74-99) mg/dL POC Glucose (mg/dL) 183 H 194 H (75-99) mg/dL Urine Appearance (Clear) Urine Protein (Negative) Urine Blood (Negative) Ur Leukocyte Esterase (Negative) Urine RBC (0-5) /hpf Urine WBC (0-5) /hpf Urine WBC Clumps (None) /hpf Ur Squamous Epith Cells (0-4) /hpf Urine Bacteria (None) /hpf Hyaline Casts (0-2) /lpf Urine Mucus (None) /hpf Urine Yeast (Budding) (None) /hpf Microbiology - Last 24 Hours (Table) 09/14/19 21:16 Urine Culture - Preliminary Urine,Catheterized Assessment and Plan Plan: Assessment and Plan: 1. Acute hypoxic respiratory failure secondary to acute on chronic diastolic heart failure. 2. Fluid overload with generalized anasarca. 3. Bilateral lower extremity cellulitis. 4. Sinusitis and acute tracheobronchitis. 5. History of DVT. 6. Chronic atrial fibrillation and history of bradycardia status post permanent pacemaker implantation. 7. Diabetes mellitus type 2. 8. Hypertension. 9. Hyperlipidemia. 10. 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 Staples, status post radiation therapy. 11. Chronic kidney disease stage III. Plan From cardiology's perspective, we'll continue the patient on her current medi cations. Continue to monitor intake and output along with daily weights and daily lytes BUN and creatinine. She will return to [facility] on discharge from here. DNP note has been reviewed, I agree with a documented findings and plan of care. Patient was seen and examined.
[2019-09-15 17:09] LABS: Glucose,Whole Blood 208 mg/dL (75-99)
[2019-09-15] MEDS: ASPIRIN 81 MG PO SCH (17:24)
[2019-09-15] MEDS: SILVER sulfADIAZINE Cream 400 GM 1 APPLIC APPLIC TOPICAL SCH (18:41)
[2019-09-15 20:22] LABS: Glucose,Whole Blood 168 mg/dL (75-99)
[2019-09-15] MEDS: INSULIN DETEMIR (LEVEMIR) 100 UNIT/ML SYR SQ SCH (21:51)
[2019-09-16] MEDS: IPRATROPIUM-ALBUTEROL 3 ML NEB INHALATION SCH ×4 (00:44→20:18)
[2019-09-16 06:22] LABS: Glucose,Whole Blood 112 mg/dL (75-99)
[2019-09-16] MEDS: INSULIN ASPART (NovoLOG) 100 UNIT/ML VIAL SQ SCH ×7 (06:28→21:06)
[2019-09-16 07:06] LABS: Calcium 9.3 mg/dL (8.4-10.2); Potassium 4.8 mmol/L (3.5-5.1)
[2019-09-16] MEDS: CHOLECALCIFEROL 1,000 UNIT TAB PO SCH (08:58)
[2019-09-16] MEDS: CARVEDILOL 6.25 MG TAB PO SCH ×2 (08:58→18:37)
[2019-09-16] MEDS: AZITHROMYCIN 500 MG in SODIUM CHLORIDE 0.9% 250 ML IVPB SCH (08:58)
[2019-09-16] MEDS: amLODIPine 5 MG TAB PO SCH ×2 (08:58→18:37)
[2019-09-16] MEDS: ANASTROZOLE 1 MG TAB PO SCH (08:59)
[2019-09-16] MEDS: BUMETANIDE 0.25 MG/ML 4 ML VIAL IVP SCH ×3 (08:59→21:06)
[2019-09-16] MEDS: APIXABAN 2.5 MG TABLET PO SCH ×2 (09:02→18:37)
[2019-09-16] MEDS: FLUTICASONE 50MCG/SPRAY NASAL 16GM EA NOSTRIL SCH (09:03)
[2019-09-16] MEDS: SILVER sulfADIAZINE Cream 400 GM 1 APPLIC APPLIC TOPICAL SCH (09:04)
[2019-09-16] MEDS: CLOBETASOL PROP 0.05% CR 15GM TOPICAL SCH ×2 (09:04→21:04)
[2019-09-16 11:55] LABS: Glucose,Whole Blood 106 mg/dL (75-99)
--- NOTE | 2019-09-16 12:48 | P.PN ---
Subjective Progress Note Date: 09/16/19 Principal diagnosis: Acute hypoxic respiratory failure, chronic diastolic congestive heart failure, fluid overload, bilateral lower extremity cellulitis, anasarca, history of DVT, A. fib, type 2 diabetes, hypertension, hyperlipidemia, right-sided breast cancer, chronic kidney disease stage III. This is an 84-year-old female patient currently residing at [facility] under the care of Dr. Peraza, previously under the care of Dr. Turner in the outpatient setting. Patient has a past medical history of diabetes mellitus type 2, hyperlipidemia, hypertension, right breast cancer diagnosed in 2013 with metastatic disease to the spine followed by Dr. Staples status post radiation therapy. History of chronic kidney disease stage III, DVT, chronic atrial fibrillation with bradycardia status post permanent pacemaker implantation on eliquis, chronic diastolic heart failure with known EF of 55-60% with mild LVH. While at the care home, patient was developing increasing shortness of breath for the past several days with increased edema to the lower extremities as well. Patient received Lasix 80 mg IM at [facility] and apparently did not have very much urine output. She was previously on oral Lasix at 80 mg twice daily. Patient did not seem to be responding to the medication and was then transferred to [facility] emergency [facility] for evaluation. Patient subsequently received another dose of IV Lasix 80 mg at approximate 3 AM. She has a female catheter in place with very little urine output. She was found to be afebrile, heart rate 60s to 80s, blood pressure 130/71 and pulse ox 92% on room air. WBC 11.2, hemoglobin 11.2. D-dimer was elevated at 3.6, creatinine 1.5, BNP 7340. Influenza A and B tested negative and lactic acid 1. EKG was a ventricular paced rhythm. Chest x-ray reveals mild chronic heart failure with pleural effusion. Pulmonary congestion slightly improved from last exam. Patient was evaluated while in nuclear medicine found lying flat on the table with no respiratory distress. Patient presents with bilateral lower extremity cellulitis and open wounds. 09/15: Patient is seen today on the cardiac stepdown unit. Patient has been afebrile, heart rate 60, blood pressure 118/64, pulse ox 93% on 2 L nasal cannu la. Repeat lab work reveals unremarkable CBC, sodium 132, BUN 44 and creatinine 1.50. Blood sugars running between 169 183. Urinalysis turbid, leukoesterase large, WBCs greater than 182 with many WBC clumps, 7 epithelial cells. Urine culture is in progress. Blood cultures status received. Patient had bladder scan done yesterday on one occurrence at 546 ML's and a second bladder scan was 675. Patient has had a Alfredo catheter in place. She was started on IV Bumex yesterday and has been diuresing. Local wound care has been addressed with Silvadene wraps to bilateral lower legs. VQ scan was low probability for PE. Echocardiogram reveals EF of 50-55%, severe concentric left hypertrophy, moderate mitral regurgitation, mild tricuspid regurgitation, borderline pulmonary hypertension 09/16: Patient still in the stepdown unit has been in progressive care slightly decreased shortness of breath, oxygen level is better so far, culture remain negative at this point. Slight improving kidney function with GFR still running around 31% only. Cellulitis and anasarca has not been a lot better this point continue current diuretics continue to watch for any fluid overload continue to watch patient's urine output. Patient still mildly confused. Objective - Vital Signs Vital signs: Vital Signs Temp 98.0 F 09/16/19 04:00 Pulse 72 09/16/19 11:46 Resp 20 09/16/19 08:00 BP 119/55 09/16/19 08:00 Pulse Ox 91 L 09/16/19 08:00 Intake & Output 09/15/19 09/16/19 09/16/19 18:59 06:59 18:59 Intake Total 300 100 Output Total 300 1300 Balance 0 -1300 100 Weight 123.3 kg Intake: IV 300 Azithromycin 500 mg In 250 Sodium Chloride 0.9% 250 ml @ 250 mls/hr IVPB DAILY [place] Rx#:[id number] cefTRIAXone 1 gm In 50 Sodium Chloride 0.9% 50 ml @ 100 mls/hr IVPB Q24HR [place] Rx#:[id number] Oral 100 Output: Urine 300 1300 Other: Voiding Method Indwelling Catheter Indwelling Catheter Indwelling Catheter - Exam Review of systems: CONSTITUTIONAL: Significantly overweight mild respiratory distress looks older than her age. EYES: No icterus sclerae, no conjunctivitis. EARS, NOSE, MOUTH, THROAT, and FACE: No sore throat, lymphadenopathy, carotid bruits or deformity. RESPIRATORY: Positive shortness of breath cough wheezes. CARDIOVASCULAR: Positive PND orthopnea palpitation and chronic edema. GASTROINTESTINAL: No Abd pain, Nausea or vomiting, no Diarrhea or constipation, No GI Bleed, no distention or masses. GENITOURINARY: Negative for Hematuria or UTI, no kidney stones. INTEGUMENT/BREAST: Significant cellulitis of the lower extremity with anasarca and significant edema both lower extremity. HEMATOLOGIC/LYMPHATIC: Negative for bleed or purpura. MUSCULOSKELTAL: Negative for Myalgia or arthralgia. NEURLOGICAL: Alert mild diffuse still moving all her 4 extremity with significant memory loss. BEHAVIORAL/PSYCH: Negative. ENDOCRINE: Negative. Physical examination: General Appearance: Alert, cooperative, morbidly obese older than her age. Neck HEENT: Supple, no lymphadenopathy, no thyroid enlargement, no carotid bruits. Lungs: Decreased breath sounds bilaterally with fine rhonchi mild crackles in the right base positive mild expiratory wheezes. Chest Wall: Decrease expansion with deep inspiration no tenderness and no deformity was found on exam, no costochondral pain or discomfort. Heart: Regular rate and rhythm, S1, S2 positive history positive JVD with 2/6 ejection systolic murmur at apex. Back: Symmetric, no curvature, ROM normal, no CVA tenderness. Abdomen: Soft positive bowel sounds positive mild ascites with slight enlarged liver. Extremities: 2+ edema bilaterally worsening of the right side with significant cellulitis from 3 inches below the knee all the way to around the ankle area. Pulses: Decreased pulse bilaterally Skin: Skin color, texture, tugor normal, no rashes or lesions. Neurologic: Alert significantly, patient was moving all her 4 extremities generalized weakness focal deficit not able to do gait exam. - Labs CBC & Chem 7: 09/15/19 05:37 09/16/19 06:25 Labs: Abnormal Lab Results - Last 24 Hours (Table) 09/15/19 09/15/19 09/16/19 Range/Units 17:03 20:20 06:03 Sodium (137-145) mmol/L BUN (7-17) mg/dL Creatinine (0.52-1.04) mg/dL Glucose (74-99) mg/dL POC Glucose (mg/dL) 208 H 168 H 112 H (75-99) mg/dL 09/16/19 09/16/19 Range/Units 06:25 11:53 Sodium 135 L (137-145) mmol/L BUN 48 H (7-17) mg/dL Creatinine 1.56 H (0.52-1.04) mg/dL Glucose 112 H (74-99) mg/dL POC Glucose (mg/dL) 106 H (75-99) mg/dL Microbiology - Last 24 Hours (Table) 09/14/19 13:53 Blood Culture - Preliminary Blood No Growth after 24 hours 09/14/19 21:16 Urine Culture - Preliminary Urine,Catheterized Assessment and Plan Plan: 1. Acute hypoxic respiratory failure secondary to acute on chronic diastolic heart failure. Continue diuretics, continue O2 continue updraft treatment continue treatment for heart failure. 2. Fluid overload with generalized anasarca. Continue Bumex. Watch daily weight and urine output. 3. Bilateral lower extremity cellulitis. Continue ceftriaxone and local wound care with Silvadene wraps. Continue to watch for any positive cultures at this point. 4. Sinusitis and acute tracheobronchitis. Patient started on azithromycin and ceftriaxone, continue decongestant continue antibiotic at this point. 5. History of DVT. Continue eliquis 2.5 mg twice daily. 6. Chronic atrial fibrillation and history of bradycardia status post permanent pacemaker implantation. Continue eliquis 2.5 mg twice daily, Lopressor 25 mg twice daily. 7. Diabetes mellitus type 2. Continue Levemir 30 units at bedtime, NovoLog 5 units with meals and NovoLog scale before meals and at bedtime. 8. Hypertension. Continue Norvasc with parameters, Coreg. 9. Hyperlipidemia. Not currently on statin. 10. 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 Staples, status post radiation therapy. 11. Chronic kidney disease stage III. Baseline creatinine 1.31.4. Monitor closely. Discharge planning possibly back to [facility] on Monday or Monday.
--- NOTE | 2019-09-16 14:13 | P.PN ---
Subjective Progress Note Date: 09/16/19 This is a pleasant 84-year-old female patient who sees Dr. Cardozo are regular basis with a past medical history significant for long-standing persistent atrial fibrillation on oral anticoagulation, status post permanent pacemaker implantation in 2018, chronic diastolic congestive heart failure, obesity, hypertension, and dyslipidemia as well as chronic kidney disease, presented to the hospital complaining of increasing in the shortness of breath as well as lower extremities edema. The patient somewhat is a poor historian and she is a resident at [facility]. Patient was initiated on IV Bumex, overall has been diuresing well. Her weight in the record isn't accurate. She came in at 77 kg its documented at 96 kg today. 09/16/2019 Patient seen and examined this morning, sitting up in the chair at bedside. Overall starting to feel better. Blood pressure 120/50 with a heart rate in the 60s, 91% on 4 L of oxygen. Objective - Vital Signs Vital signs: Vital Signs Temp 98.0 F 09/16/19 04:00 Pulse 72 09/16/19 11:46 Resp 20 09/16/19 08:00 BP 119/55 09/16/19 08:00 Pulse Ox 91 L 09/16/19 08:00 Intake & Output 09/15/19 09/16/19 09/16/19 18:59 06:59 18:59 Intake Total 300 100 Output Total 300 1300 Balance 0 -1300 100 Weight 123.3 kg Intake: IV 300 Azithromycin 500 mg In 250 Sodium Chloride 0.9% 250 ml @ 250 mls/hr IVPB DAILY [place] Rx#:[id number] cefTRIAXone 1 gm In 50 Sodium Chloride 0.9% 50 ml @ 100 mls/hr IVPB Q24HR [place] Rx#:[id number] Oral 100 Output: Urine 300 1300 Other: Voiding Method Indwelling Catheter Indwelling Catheter Indwelling Catheter - Exam HEENT: Head is atraumatic, normocephalic. Pupils equal, round. Sclerae is anic teric. NECK: Supple. No JVD. No lymphadenopathy. No thyromegaly. LUNGS: Clear with diminished air entry to the bases bilaterally . No intercostal retractions. HEART: Irregularly irregular rate and rhythm. Systolic murmur. ABDOMEN: Soft. Bowel sounds are present. No masses. No tenderness. EXTREMITIES: 2+ bilateral pedal edema Jacinto wrap/dressings in place bilaterally, no significant drainage. NEUROLOGICAL: Patient is awake, alert and oriented x3. Cranial nerves 2 through 12 are grossly intact. - Labs CBC & Chem 7: 09/15/19 05:37 09/16/19 06:25 Labs: Abnormal Lab Results - Last 24 Hours (Table) 09/15/19 09/15/19 09/16/19 Range/Units 17:03 20:20 06:03 Sodium (137-145) mmol/L BUN (7-17) mg/dL Creatinine (0.52-1.04) mg/dL Glucose (74-99) mg/dL POC Glucose (mg/dL) 208 H 168 H 112 H (75-99) mg/dL 09/16/19 09/16/19 Range/Units 06:25 11:53 Sodium 135 L (137-145) mmol/L BUN 48 H (7-17) mg/dL Creatinine 1.56 H (0.52-1.04) mg/dL Glucose 112 H (74-99) mg/dL POC Glucose (mg/dL) 106 H (75-99) mg/dL Microbiology - Last 24 Hours (Table) 09/14/19 13:53 Blood Culture - Preliminary Blood No Growth after 24 hours 09/14/19 21:16 Urine Culture - Preliminary Urine,Catheterized Assessment and Plan Plan: Assessment and Plan: 1. Acute hypoxic respiratory failure secondary to acute on chronic diastolic heart failure. 2. Fluid overload with generalized anasarca. 3. Bilateral lower extremity cellulitis. 4. Sinusitis and acute tracheobronchitis. 5. History of DVT. 6. Chronic atrial fibrillation and history of bradycardia status post permanent pacemaker implantation. 7. Diabetes mellitus type 2. 8. Hypertension. 9. Hyperlipidemia. 10. 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 Staples, status post radiation therapy. 11. Chronic kidney disease stage III. Plan From cardiology's perspective, we'll continue the patient on her current medicat ions. Continue to monitor intake and output along with daily weights and daily lytes BUN and creatinine. She will return to [facility] on discharge from here. DNP note has been reviewed, I agree with a documented findings and plan of care. Patient was seen and examined.
[2019-09-16 17:14] LABS: Glucose,Whole Blood 142 mg/dL (75-99)
[2019-09-16] MEDS: ASPIRIN 81 MG PO SCH (18:37)
[2019-09-16 20:47] LABS: Glucose,Whole Blood 172 mg/dL (75-99)
[2019-09-16] MEDS: INSULIN DETEMIR (LEVEMIR) 100 UNIT/ML SYR SQ SCH (21:06)
[2019-09-17] MEDS: IPRATROPIUM-ALBUTEROL 3 ML NEB INHALATION SCH ×5 (00:44→20:33)
[2019-09-17 05:57] VITALS: RESP 20
[2019-09-17 06:08] LABS: Glucose,Whole Blood 156 mg/dL (75-99)
[2019-09-17 06:10] LABS: Basophils % (A) 1 %; Eosinophils # (A) 0.3 k/uL (0-0.7); Eosinophils % (A) 6 %; HCT 37.1 % (34.0-46.0); HGB 10.9 gm/dL (11.4-16.0); Hypochromasia Marked; Lymphocytes # (A) 0.5 k/uL (1.0-4.8); Lymphocytes % (A) 9 %; MCH 24.6 pg (25.0-35.0); MCHC 29.4 g/dL (31.0-37.0); MCV 83.8 fL (80.0-100.0); Mean Platelet Volume 7.8; Monocytes # (A) 0.6 k/uL (0-1.0); Monocytes % (A) 10 %; Neutrophils # (A) 4.3 k/uL (1.3-7.7); Neutrophils % (A) 72 %; Platelet Count 221 k/uL (150-450); RBC 4.43 m/uL (3.80-5.40); RDW 15.7 % (11.5-15.5)
[2019-09-17] MEDS: INSULIN ASPART (NovoLOG) 100 UNIT/ML VIAL SQ SCH ×7 (06:18→20:42)
[2019-09-17 06:24] LABS: Calcium 9.5 mg/dL (8.4-10.2); Potassium 4.9 mmol/L (3.5-5.1); Total Bilirubin 0.5 mg/dL (0.2-1.3)
[2019-09-17] MEDS: amLODIPine 5 MG TAB PO SCH ×2 (09:31→17:12)
[2019-09-17] MEDS: BUMETANIDE 0.25 MG/ML 4 ML VIAL IVP SCH (09:31)
[2019-09-17] MEDS: ANASTROZOLE 1 MG TAB PO SCH (09:32)
[2019-09-17] MEDS: CHOLECALCIFEROL 1,000 UNIT TAB PO SCH (09:32)
[2019-09-17] MEDS: AZITHROMYCIN 500 MG TAB PO SCH (09:32)
[2019-09-17] MEDS: APIXABAN 2.5 MG TABLET PO SCH ×2 (09:32→17:12)
[2019-09-17] MEDS: CARVEDILOL 6.25 MG TAB PO SCH ×2 (09:32→17:12)
[2019-09-17] MEDS: FLUTICASONE 50MCG/SPRAY NASAL 16GM EA NOSTRIL SCH (09:32)
[2019-09-17] MEDS: SILVER sulfADIAZINE Cream 400 GM 1 APPLIC APPLIC TOPICAL SCH (09:33)
[2019-09-17] MEDS: CLOBETASOL PROP 0.05% CR 15GM TOPICAL SCH ×2 (09:33→20:43)
[2019-09-17] MEDS ORDERED: PIPERACILLIN-TAZOBACTAM 3.375 GM in SODIUM CHLORIDE 0.9% 100 ML IVPB SCH (10:00)
[2019-09-17 12:01] LABS: Glucose,Whole Blood 253 mg/dL (75-99)
--- NOTE | 2019-09-17 13:28 | P.PN ---
Subjective Progress Note Date: 09/17/19 This is an 84-year-old female patient currently residing at [facility] under the care of Dr. Peraza, previously under the care of Dr. Turner in the outpatient setting. Patient has a past medical history of diabetes mellitus type 2, hyperlipidemia, hypertension, right breast cancer diagnosed in 2013 with metastatic disease to the spine followed by Dr. Staples status post radiation therapy. History of chronic kidney disease stage III, DVT, chronic atrial fibrillation with bradycardia status post permanent pacemaker implantation on eliquis, chronic diastolic heart failure with known EF of 55-60% with mild LVH[facility] patient was developing increasing shortness of breath for the past several days with increased edema to the lower extremities as well. Patient received Lasix 80 mg IM at [facility] and apparently did not have very much urine output. She was previously on oral Lasix at 80 mg twice daily. Patient did not seem to be responding to the medication and was then transferred to [facility] emergency center for evaluation. Patient subsequently received another dose of IV Lasix 80 mg at approximate 3 AM. She has a female catheter in place with very little urine output. She was found to be afebrile, heart rate 60s to 80s, blood pressure 130/71 and pulse ox 92% on room air. WBC 11.2, hemoglobin 11.2. D-dimer was elevated at 3.6, creatinine 1.5, BNP 7340. Influenza A and B tested negative and lactic acid 1. EKG was a ventricular paced rhythm. Chest x-ray reveals mild chronic heart failure with pleural effusion. Pulmonary congestion slightly improved from last exam. Patient was evaluated while in nuclear medicine found lying flat on the table with no respiratory distress. Patient presents with bilateral lower extremity cellulitis and open wounds. 09/15: Patient is seen today on the cardiac stepdown unit. Patient has been af ebrile, heart rate 60, blood pressure 118/64, pulse ox 93% on 2 L nasal cannula. Repeat lab work reveals unremarkable CBC, sodium 132, BUN 44 and creatinine 1.50. Blood sugars running between 169 183. Urinalysis turbid, leukoesterase large, WBCs greater than 182 with many WBC clumps, 7 epithelial cells. Urine culture is in progress. Blood cultures status received. Patient had bladder scan done yesterday on one occurrence at 546 ML's and a second bladder scan was 675. Patient has had a Alfredo catheter in place. She was started on IV Bumex yesterday and has been diuresing. Local wound care has been addressed with Silvadene wraps to bilateral lower legs. VQ scan was low probability for PE. Echocardiogram reveals EF of 50-55%, severe concentric left hypertrophy, moderate mitral regurgitation, mild tricuspid regurgitation, borderline pulmonary hypertension 09/16: Patient still in the stepdown unit has been in progressive care slightly decreased shortness of breath, oxygen level is better so far, culture remain negative at this point. Slight improving kidney function with GFR still running around 31% only. Cellulitis and anasarca has not been a lot better this point continue current diuretics continue to watch for any fluid overload continue to watch patient's urine output. Patient still mildly confused. 09/17: Patient's weight is down 1.8 kg from yesterday. IV Bumex will be changed to oral. Patient is afebrile, heart rate 62, blood pressure 122/64, pulse ox 94% on 4 L nasal cannula. Repeat blood work reveals hemoglobin 10.9, BUN 46 creatinine 1.33. Blood sugars running between 151-172. Urine culture is ESBL E. coli sensitive to carbapenems, Zosyn, Bactrim, nitrofurantoin. Antibiotics changed to Invanz and consult added for Dr. Navarro. Anticipate discharge back to [facility] tomorrow. Objective - Vital Signs Vital signs: Vital Signs Temp 98.3 F 09/17/19 04:00 Pulse 68 09/17/19 07:25 Resp 20 09/17/19 04:00 BP 122/64 09/17/19 04:00 Pulse Ox 94 L 09/17/19 04:00 Intake & Output 09/16/19 09/17/19 09/17/19 18:59 06:59 18:59 Intake Total 430 100 360 Output Total 600 2600 Balance -170 -2500 360 Weight 120.5 kg Intake: Oral 430 100 360 Output: Urine 600 2600 Other: Voiding Method Indwelling Catheter Indwelling Catheter - Exam Review of Systems Constitutional: Reports fatigue, Reports weakness, Denies chills, Denies fever, Denies weight loss Eyes: denies blurred vision, denies pain Ears, nose, mouth and throat: Reports nasal congestion, Reports sinus pressure, Denies dysphagia, Denies sore throat Cardiovascular: Reports edema, Reports leg edema, denies shortness of breath improved, Denies chest pain Respiratory: Denies cough, denies cough with sputum, denies dyspnea, Denies excessive sputum, Denies hemoptysis Gastrointestinal: Denies abdominal pain, Denies diarrhea, Denies nausea, Denies vomiting Genitourinary: Denies dysuria, Denies hematuria, Denies urgency, Denies urinary frequency Musculoskeletal: Reports gait dysfunction, Reports muscle weakness, Denies fr equent falls, Denies myalgias Integumentary: Reports wounds, Denies pruritus, Denies rash Neurological: Denies numbness, Denies weakness Psychiatric: Denies anxiety, Denies depression Endocrine: Denies fatigue, Denies weight change Physical examination Gen: This is an 84-year-old morbidly obese female. Patient resting in bed. No respiratory distress is noted. HEENT: Head is atraumatic, normocephalic. Pupils equal, round. Sclerae is anicteric. NECK: Supple. No JVD. No lymphadenopathy. No thyromegaly. LUNGS: Clear to auscultation. No wheezes or rhonchi. No intercostal retractions. HEART: Irregularly irregular rate and rhythm. Systolic 2/6 murmur. ABDOMEN: Soft. Bowel sounds are present. No masses. No tenderness. EXTREMITIES: 2+ bilateral pedal edema Jacinto wrap/dressings in place bilaterally, no significant drainage. NEUROLOGICAL: Patient is awake, alert and oriented x3. Cranial nerves 2 through 12 are grossly intact. - Labs CBC & Chem 7: 09/17/19 05:41 09/17/19 05:41 Labs: Abnormal Lab Results - Last 24 Hours (Table) 09/16/19 09/16/19 09/16/19 Range/Units 11:53 17:03 20:45 Hgb (11.4-16.0) gm/dL MCH (25.0-35.0) pg MCHC (31.0-37.0) g/dL RDW (11.5-15.5) % Lymphocytes # (1.0-4.8) k/uL Sodium (137-145) mmol/L BUN (7-17) mg/dL Creatinine (0.52-1.04) mg/dL Glucose (74-99) mg/dL POC Glucose (mg/dL) 106 H 142 H 172 H (75-99) mg/dL Total Protein (6.3-8.2) g/dL Albumin (3.5-5.0) g/dL 09/17/19 09/17/19 09/17/19 Range/Units 05:41 05:41 06:04 Hgb 10.9 L (11.4-16.0) gm/dL MCH 24.6 L (25.0-35.0) pg MCHC 29.4 L (31.0-37.0) g/dL RDW 15.7 H (11.5-15.5) % Lymphocytes # 0.5 L (1.0-4.8) k/uL Sodium 135 L (137-145) mmol/L BUN 46 H (7-17) mg/dL Creatinine 1.33 H (0.52-1.04) mg/dL Glucose 151 H (74-99) mg/dL POC Glucose (mg/dL) 156 H (75-99) mg/dL Total Protein 6.0 L (6.3-8.2) g/dL Albumin 3.0 L (3.5-5.0) g/dL Microbiology - Last 24 Hours (Table) 09/14/19 21:16 Urine Culture - Final Urine,Catheterized Escherichia coli 09/14/19 13:53 Blood Culture - Preliminary Blood No Growth after 48 hours Assessment and Plan Plan: 1. Acute hypoxic respiratory failure secondary to acute on chronic diastolic heart failure. Continue Bumex changed to oral 2 mg in the morning and 1 mg at 4 PM. Cardiology consult appreciated. Monitor I&O and daily weights. Patient has Alfredo catheter in place. VQ scan negative for pulmonary embolism. 2. Fluid overload with generalized anasarca. Continue Bumex. 3. Bilateral lower extremity cellulitis. Continue antibiotics and local wound care with Silvadene wraps. 4. Sinusitis and acute tracheobronchitis. Continue antibiotics, Flonase twice daily. 5. History of DVT. Continue eliquis 2.5 mg twice daily. 6. Chronic atrial fibrillation and history of bradycardia status post permanent pacemaker implantation. Continue eliquis 2.5 mg twice daily, Lopressor 25 mg twice daily. 7. Diabetes mellitus type 2. Continue Levemir 30 units at bedtime, NovoLog 5 units with meals and NovoLog scale before meals and at bedtime. 8. Hypertension. Continue Norvasc with parameters, Coreg. 9. Hyperlipidemia. Not currently on statin. 10. 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 Staples, status post radiation therapy. 11. Chronic kidney disease stage III. Baseline creatinine 1.31.4. Monitor closely. 12. GI prophylaxis. 13. DVT prophylaxis. Eliquis 14. Urinary retention requiring Alfredo catheter placement. 15. Acute ESBL E. coli urinary tract infection, present on admission secondary to urinary retention. Antibiotics changed to Invanz, consult with Dr. Navarro appreciated. Discharge plan: Return to [facility] on Monday Impression and plan of care have been directed as dictated by the signing physician. Nini Malone nurse practitioner acting as scribe for signing physician.
--- NOTE | 2019-09-17 13:36 | P.CONS ---
History of Present Illness - Reason for Consult Consult date: 09/17/19 ESBL E. coli UTI - History of Present Illness This is an 84-year-old female patient currently residing at [facility] under the care of Dr. Peraza with past medical history of diabetes mellitus type 2, hyperlipidemia, hypertension, right breast cancer diagnosed in 2013 with metastatic disease to the spine followed by Dr. Staples status post radiation therapy. History of chronic kidney disease stage III, DVT, chronic atrial fibrillation with bradycardia status post permanent pacemaker implantation on eliquis, chronic diastolic heart failure with known EF of 55-60% with mild LVH. While at the residential, patient was developing increasing shortness of breath for the past several days with increased edema to the lower extremities as well. Patient received Lasix 80 mg IM at [facility] and apparently did not have very much urine output. She was previously on oral Lasix at 80 mg twice daily. Patient did not seem to be responding to the medication and was then transferred to [facility] emergency center for evaluation. Patient subsequently received another dose of IV Lasix 80 mg with female catheter in place with very little urine output. She was found to be afebrile, heart rate 60s to 80s, blood pressure 130/71 and pulse ox 92% on room air. WBC 11.2, hemoglobin 11.2. D-dimer was elevated at 3.6, creatinine 1.5, BNP 7340. Influenza A and B tested negative and lactic acid 1. EKG was a ventricular paced rhythm. Chest x-ray reveals mild chronic heart failure with pleural effusion. Pulmonary congestion slightly improved from last exam. Patient was evaluated while in nuclear medicine found lying flat on the table with no respiratory distress. Patient presents with bilateral lower extremity cellulitis and open wounds. Patient was found to have urinary retention Alfredo catheter was placed and she was started on IV Bumex. Local wound care has been in the form of Silvadene wraps to bilateral lower extremities. VQ scan was low probability for PE. Patient has been diuresing well with weight loss and transition to oral Bumex. Urine culture is ESBL E. coli sensitive to carbapenems, Zosyn, Bactrim, nitrofurantoin. Antibiotics changed to Invanz. Patient is scheduled for discharge back to [facility] tomorrow. Review of Systems Constitutional: Reports fatigue, Reports weakness, Denies chills, Denies fever, Denies weight loss Eyes: denies blurred vision, denies pain Ears, nose, mouth and throat: Reports nasal congestion, Reports sinus pressure, Denies dysphagia, Denies sore throat Cardiovascular: Reports edema, Reports leg edema, denies shortness of breath improved, Denies chest pain Respiratory: Denies cough, denies cough with sputum, denies dyspnea, Denies excessive sputum, Denies hemoptysis Gastrointestinal: Denies abdominal pain, Denies diarrhea, Denies nausea, Denies vomiting Genitourinary: Denies dysuria, Denies hematuria, Denies urgency, Denies urinary frequency Musculoskeletal: Reports gait dysfunction, Reports muscle weakness, Denies frequent falls, Denies myalgias Integumentary: Reports wounds, Denies pruritus, Denies rash Neurological: Denies numbness, Denies weakness, mild confusion Psychiatric: Denies anxiety, Denies depression Endocrine: Denies fatigue, Denies weight change Past Medical History Past Medical History: Atrial Flutter, Cancer, Diabetes Mellitus, Deep Vein Thrombosis (DVT), Eye Disorder, Hyperlipidemia, Hypertension, Memory Impairment, Renal Disease Additional Past Medical History / Comment(s): hx. rt breast cancer-2014 has mets to spine(sx and radiation tx and currently reciving hormone blockers, metastasis to spine-gets tx.hx of anemia requiring blood transfusion, DVT leg years ago, uses walker, bone CA-sees dr staples, kidney stones(sx), uti's/urosepsis/bacteremia,ad foot fx-no sx just casted. 2016 fall/rhabomyolosis/akf. family stated pt has kidney disease but refused to seek tx per specilaist" History of Any Multi-Drug Resistant Organisms: None Reported Past Surgical History: Breast Surgery, Cholecystectomy, Heart Catheterization, Tubal Ligation Additional Past Surgical History / Comment(s): right mastectomy, cataracts removed, excision of lesion rt cheek, steroid inj in past for heel spur, lithotripsy Past Anesthesia/Blood Transfusion Reactions: No Reported Reaction Past Psychological History: No Psychological Hx Reported Additional Psychological History / Comment(s): currently at [facility] for rehab.uses a walker to get around. Smoking Status: Never smoker Past Alcohol Use History: None Reported Past Drug Use History: None Reported - Past Family History Mother Family Medical History: Diabetes Mellitus Father Family Medical History: Congestive Heart Failure (CHF) Medications and Allergies Home Medications Medication Instructions Recorded Confirmed Type Anastrozole [Arimidex] 1 mg PO DAILY@0800 05/14/15 09/14/19 History Aspirin [Adult Low Dose Aspirin EC] 81 mg PO DAILY@1700 10/06/17 09/14/19 History Apixaban [Eliquis] 2.5 mg PO BID@0800,1700 06/26/18 09/14/19 History Ascorbic Acid [Vitamin C] 500 mg PO DAILY@1200 06/26/18 09/14/19 History Cyanocobalamin (Vitamin B-12) 2,500 mcg PO DAILY@1200 06/26/18 09/14/19 History [Vitamin B-12] Acetaminophen Tab [Tylenol] 650 mg PO BID@0800,1700 07/18/18 09/14/19 History Bisacodyl [Dulcolax] 10 mg RECTAL DAILY PRN 07/18/18 09/14/19 History Na Phos,M-B/Na Phos,Di-Ba [Fleet 133 ml RECTAL DAILY PRN 07/18/18 09/14/19 History Adult] amLODIPine [Norvasc] 5 mg PO DAILY@1200 07/18/18 09/14/19 History Acetaminophen Tab [Tylenol] 650 mg PO Q6HR PRN tab 07/31/18 09/14/19 Rx Carvedilol [Coreg] 6.25 mg PO BID@0800,1700 09/14/19 09/14/19 History Cholecalciferol (Vitamin D3) 2,000 unit PO DAILY@0800 09/14/19 09/14/19 History [Vitamin D3] Clobetasol Propionate [Temovate 1 applic TOPICAL BID 09/14/19 09/14/19 History 0.05% Cream] Furosemide [Lasix] 80 mg PO BID@0800,1700 09/14/19 09/14/19 History Guaifenesin/Dextromethorphan 10 ml PO Q6H PRN 09/14/19 09/14/19 History [guaiFENesin DM] Insulin Aspart [NovoLOG] 5 units SQ AC-LUNCH@1100 09/14/19 09/14/19 History Insulin Aspart [NovoLOG] 11 units SQ AC-BRKFST@0700 09/14/19 09/14/19 History Insulin Aspart [NovoLOG] 14 units SQ AC-SUPPER@1630 09/14/19 09/14/19 History Insulin Detemir (Levemir) [Levemir] 26 unit SQ HS@2130 09/14/19 09/14/19 History Ipratropium-Albuterol Nebulize 3 ml INHALATION RT-QID@00,06,12,18 09/14/19 09/14/19 History [Duoneb 0.5 mg-3 mg/3 ml Soln] Magnesium Hydroxide [Milk of 7,200 mg PO DAILY PRN 09/14/19 09/14/19 History Magnesia Concentrate] Naproxen Sodium [Aleve] 220 mg PO Q12H PRN 09/14/19 09/14/19 History Xgeva Solution 120mg/1.7ml 120 mg SQ Q28D 09/14/19 09/14/19 History Allergies Allergy/AdvReac Type Severity Reaction Status Date / Time tuberculin, purified protein Allergy Unknown Verified 09/14/19 13:22 deriva tuberculin,PPD,multi-puncture Allergy Unknown Verified 09/14/19 13:22 codeine AdvReac Abdominal Verified 09/14/19 13:22 Pain Physical Exam Vitals: Vital Signs Temp Pulse Pulse Resp BP Pulse Ox 09/17/19 12:13 68 09/17/19 10:50 60 09/17/19 08:00 62 20 112/54 95 09/17/19 07:25 68 09/17/19 07:14 64 09/17/19 04:00 98.3 F 62 20 122/64 94 L 09/17/19 00:00 98.1 F 69 21 144/76 92 L 09/16/19 20:31 71 16 09/16/19 20:18 66 18 09/16/19 20:00 98.4 F 65 20 118/60 90 L 09/16/19 16:00 61 20 116/54 93 L Intake and Output 09/16/19 09/17/19 09/17/19 22:59 06:59 14:59 Intake Total 330 360 Output Total 1400 1200 Balance -1070 -1200 360 Intake: Oral 330 360 Output: Urine 1400 1200 Other: Voiding Method Indwelling Catheter Indwelling Catheter Indwelling Catheter Weight 120.5 kg Physical examination Gen: This is an 84-year-old morbidly obese female. Patient resting in bed. No respiratory distress is noted. HEENT: Head is atraumatic, normocephalic. Pupils equal, round. Sclerae is anicteric. NECK: Supple. No JVD. No lymphadenopathy. No thyromegaly. LUNGS: Clear to auscultation. No wheezes or rhonchi. No intercostal retractions. HEART: Irregularly irregular rate and rhythm. Systolic 2/6 murmur. ABDOMEN: Soft. Bowel sounds are present. No masses. No tenderness. EXTREMITIES: 2+ bilateral pedal edema Jacinto wrap/dressings in place bilaterally, no significant drainage. NEUROLOGICAL: Patient is awake, alert and oriented x3. Cranial nerves 2 through 12 are grossly intact. Results CBC & Chem 7: 09/17/19 05:41 09/17/19 05:41 Labs: Abnormal Lab Results - Last 24 Hours (Table) 09/16/19 09/16/19 09/17/19 Range/Units 17:03 20:45 05:41 Hgb 10.9 L (11.4-16.0) gm/dL MCH 24.6 L (25.0-35.0) pg MCHC 29.4 L (31.0-37.0) g/dL RDW 15.7 H (11.5-15.5) % Lymphocytes # 0.5 L (1.0-4.8) k/uL Sodium (137-145) mmol/L BUN (7-17) mg/dL Creatinine (0.52-1.04) mg/dL Glucose (74-99) mg/dL POC Glucose (mg/dL) 142 H 172 H (75-99) mg/dL Total Protein (6.3-8.2) g/dL Albumin (3.5-5.0) g/dL 09/17/19 09/17/19 09/17/19 Range/Units 05:41 06:04 11:39 Hgb (11.4-16.0) gm/dL MCH (25.0-35.0) pg MCHC (31.0-37.0) g/dL RDW (11.5-15.5) % Lymphocytes # (1.0-4.8) k/uL Sodium 135 L (137-145) mmol/L BUN 46 H (7-17) mg/dL Creatinine 1.33 H (0.52-1.04) mg/dL Glucose 151 H (74-99) mg/dL POC Glucose (mg/dL) 156 H 253 H (75-99) mg/dL Total Protein 6.0 L (6.3-8.2) g/dL Albumin 3.0 L (3.5-5.0) g/dL Microbiology - Last 24 Hours (Table) 09/14/19 21:16 Urine Culture - Final Urine,Catheterized Escherichia coli 09/14/19 13:53 Blood Culture - Preliminary Blood No Growth after 48 hours Assessment and Plan Plan: This is an 84-year-old female who presented to the hospital due to acute hypoxic respiratory failure secondary to acute on chronic diastolic heart failure, urinary retention requiring Alfredo catheter placement. VQ scan negative for pulmonary embolism. Patient was treated with IV Bumex today transitioned to oral Bumex. Patient is also been treated for bilateral lower extremity cellulitis with local wound care of Silvadene wraps. Consult was placed due to acute ESBL E. coli urinary tract infection, present on admission secondary to urinary retention. Patient has been treated with antibiotics in the form of ceftriaxone and azithromycin also covering for the bilateral lower extremity cellulitis and sinusitis and acute tracheobronchitis. Today antibiotics changed to Invanz and continue noninvasive azithromycin for now. Patient is scheduled for return to [facility] tomorrow. Blood cultures no growth after 48 hours. Further recommendations as patient progresses. The above dictated assessment and findings were discussed with Dr. Navarro. The impression and plan of care have been directed as dictated. Nini Malone nurse practitioner acting as scribe for Dr. Navarro.
--- NOTE | 2019-09-17 13:37 | P.PN ---
Subjective Progress Note Date: 09/17/19 This is a pleasant 84-year-old female patient who sees Dr. Cardozo are regular basis with a past medical history significant for long-standing persistent atrial fibrillation on oral anticoagulation, status post permanent pacemaker implantation in 2018, chronic diastolic congestive heart failure, obesity, hypertension, and dyslipidemia as well as chronic kidney disease, presented to the hospital complaining of increasing in the shortness of breath as well as lower extremities edema. The patient somewhat is a poor historian and she is a resident at [facility]. Patient was initiated on IV Bumex, overall has been diuresing well. Her weight in the record isn't accurate. She came in at 77 kg its documented at 96 kg today. 09/16/2019 Patient seen and examined this morning, sitting up in the chair at bedside. Overall starting to feel better. Blood pressure 120/50 with a heart rate in the 60s, 91% on 4 L of oxygen. 09/17/2019 Patient seen and examined this morning. Weight is down 1.8 kg, IV Bumex has been discontinued and patient has been changed over to oral diuretics. Pressure 112/50 with a heart rate in the 60s, 95% on 4 L of oxygen. White blood cell count 6.0, hemoglobin 10.9, platelet count 221. Sodium 135, potassium 4.9, BUN 46, creatinine 1.3. Objective - Vital Signs Vital signs: Vital Signs Temp 98.3 F 09/17/19 04:00 Pulse 68 09/17/19 12:13 Resp 20 09/17/19 08:00 BP 112/54 09/17/19 08:00 Pulse Ox 95 09/17/19 08:00 Intake & Output 09/16/19 09/17/19 09/17/19 18:59 06:59 18:59 Intake Total 430 100 360 Output Total 600 2600 Balance -170 -2500 360 Weight 120.5 kg Intake: Oral 430 100 360 Output: Urine 600 2600 Other: Voiding Method Indwelling Catheter Indwelling Catheter Indwelling Catheter - Exam HEENT: Head is atraumatic, normocephalic. Pupils equal, round. Sclerae is anicteric. NECK: Supple. No JVD. No lymphadenopathy. No thyromegaly. LUNGS: Clear with diminished air entry to the bases bilaterally . No intercostal retractions. HEART: Irregularly irregular rate and rhythm. Systolic murmur. ABDOMEN: Soft. Bowel sounds are present. No masses. No tenderness. EXTREMITIES: 1+ bilateral pedal edema Jacinto wrap/dressings in place bilaterally, no significant drainage. NEUROLOGICAL: Patient is awake, alert and oriented x3. Cranial nerves 2 through 12 are grossly intact. - Labs CBC & Chem 7: 09/17/19 05:41 09/17/19 05:41 Labs: Abnormal Lab Results - Last 24 Hours (Table) 09/16/19 09/16/19 09/17/19 Range/Units 17:03 20:45 05:41 Hgb 10.9 L (11.4-16.0) gm/dL MCH 24.6 L (25.0-35.0) pg MCHC 29.4 L (31.0-37.0) g/dL RDW 15.7 H (11.5-15.5) % Lymphocytes # 0.5 L (1.0-4.8) k/uL Sodium (137-145) mmol/L BUN (7-17) mg/dL Creatinine (0.52-1.04) mg/dL Glucose (74-99) mg/dL POC Glucose (mg/dL) 142 H 172 H (75-99) mg/dL Total Protein (6.3-8.2) g/dL Albumin (3.5-5.0) g/dL 09/17/19 09/17/19 09/17/19 Range/Units 05:41 06:04 11:39 Hgb (11.4-16.0) gm/dL MCH (25.0-35.0) pg MCHC (31.0-37.0) g/dL RDW (11.5-15.5) % Lymphocytes # (1.0-4.8) k/uL Sodium 135 L (137-145) mmol/L BUN 46 H (7-17) mg/dL Creatinine 1.33 H (0.52-1.04) mg/dL Glucose 151 H (74-99) mg/dL POC Glucose (mg/dL) 156 H 253 H (75-99) mg/dL Total Protein 6.0 L (6.3-8.2) g/dL Albumin 3.0 L (3.5-5.0) g/dL Microbiology - Last 24 Hours (Table) 09/14/19 21:16 Urine Culture - Final Urine,Catheterized Escherichia coli 09/14/19 13:53 Blood Culture - Preliminary Blood No Growth after 48 hours Assessment and Plan Plan: Assessment and Plan: 1. Acute hypoxic respiratory failure secondary to acute on chronic diastolic heart failure. 2. Fluid overload with generalized anasarca. 3. Bilateral lower extremity cellulitis. 4. Sinusitis and acute tracheobronchitis. 5. History of DVT. 6. Chronic atrial fibrillation and history of bradycardia status post permanent pacemaker implantation. 7. Diabetes mellitus type 2. 8. Hypertension. 9. Hyperlipidemia. 10. 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 Staples, status post radiation therapy. 11. Chronic kidney disease stage III. Plan From cardiology's perspective, we'll continue the patient on her current medications. IV Bumex has been changed over to oral. She will return to [facility] on discharge from here. DNP note has been reviewed, I agree with a documented findings and plan of care. Patient was seen and examined.
[2019-09-17] MEDS ORDERED: BUMETANIDE 1 MG TAB PO SCH (16:00)
[2019-09-17] MEDS: ERTAPENEM 1 GM in SODIUM CHLORIDE 0.9% 50 ML IVPB SCH (17:12)
[2019-09-17] MEDS: ASPIRIN 81 MG PO SCH (17:12)
[2019-09-17 17:43] LABS: Glucose,Whole Blood 221 mg/dL (75-99)
[2019-09-17 20:29] LABS: Glucose,Whole Blood 231 mg/dL (75-99)
[2019-09-17] MEDS: INSULIN DETEMIR (LEVEMIR) 100 UNIT/ML SYR SQ SCH (20:42)
[2019-09-18 06:27] LABS: Glucose,Whole Blood 252 mg/dL (75-99)
[2019-09-18] MEDS: IPRATROPIUM-ALBUTEROL 3 ML NEB INHALATION SCH ×2 (08:00→11:44)
--- NOTE | 2019-09-18 08:17 | P.DS ---
Providers Date of admission: 09/14/19 03:17 Expected date of discharge: 09/18/19 Attending physician: Annel Fernandez Consults: 09/14/19 03:18 Consult Physician Urgent Consulting Provider: [facility] Consult Reason/Comments: AECHF Do you want consulting provider notified?: Yes 09/17/19 10:18 Consult Physician Routine Consulting Provider: Alvarez Navarro Consult Reason/Comments: esbl uti Do you want consulting provider notified?: Yes Primary care physician: Syeda Peraza [facility] Course: This is an 84-year-old female patient currently residing at [facility] under the care of Dr. Peraza, previously under the care of Dr. Turner in the outpatient setting. Patient has a past medical history of diabetes mellitus type 2, hyperlipidemia, hypertension, right breast cancer diagnosed in 2013 with metastatic disease to the spine followed by Dr. Staples status post radiation therapy. History of chronic kidney disease stage III, DVT, chronic atrial fibrillation with bradycardia status post permanent pacemaker implantation on eliquis, chronic diastolic heart failure with known EF of 55-60% with mild LVH. [facility], patient was developing increasing shortness of breath for the past several days with increased edema to the lower extremities as well. Patient received Lasix [address] [facility] and apparently did not have very much urine output. She was previously on oral Lasix at 80 mg twice daily. Patient did not seem to be responding to the medication and was then transferred to [facility] emergency center for evaluation. Patient subsequently received another dose of IV Lasix 80 mg at approximate 3 AM. She has a female catheter in place with very little urine output. She was found to be afebrile, heart rate 60s to 80s, blood pressure 130/71 and pulse ox 92% on room air. WBC 11.2, hemoglobin 11.2. D-dimer was elevated at 3.6, creatinine 1.5, BNP 7340. Influenza A and B tested negative and lactic acid 1. EKG was a ventricular paced rhythm. Chest x-ray reveals mild chronic heart failure with pleural effusion. Pulmonary congestion slightly improved from last exam. Patient was evaluated while in nuclear medicine found lying flat on the table with no respiratory distress. Patient presents with bilateral lower extremity cellulitis and open wounds. 09/15: Patient is seen today on the cardiac stepdown unit. Patient has been afebrile, heart rate 60, blood pressure 118/64, pulse ox 93% on 2 L nasal cannula. Repeat lab work reveals unremarkable CBC, sodium 132, BUN 44 and creatinine 1.50. Blood sugars running between 169 183. Urinalysis turbid, leukoesterase large, WBCs greater than 182 with many WBC clumps, 7 epithelial cells. Urine culture is in progress. Blood cultures status received. Patient had bladder scan done yesterday on one occurrence at 546 ML's and a second bladder scan was 675. Patient has had a Alfredo catheter in place. She was started on IV Bumex yesterday and has been diuresing. Local wound care has been addressed with Silvadene wraps to bilateral lower legs. VQ scan was low probability for PE. Echocardiogram reveals EF of 50-55%, severe concentric left hypertrophy, moderate mitral regurgitation, mild tricuspid regurgitation, borderline pulmonary hypertension 09/16: Patient still in the stepdown unit has been in progressive care slightly decreased shortness of breath, oxygen level is better so far, culture remain negative at this point. Slight improving kidney function with GFR still running around 31% only. Cellulitis and anasarca has not been a lot better this point continue current diuretics continue to watch for any fluid overload continue to watch patient's urine output. Patient still mildly confused. 09/17: Patient's weight is down 1.8 kg from yesterday. IV Bumex will be changed to oral. Patient is afebrile, heart rate 62, blood pressure 122/64, pulse ox 94% on 4 L nasal cannula. Repeat blood work reveals hemoglobin 10.9, BUN 46 creatinine 1.33. Blood sugars running between 151-172. Urine culture is ESBL E. coli sensitive to carbapenems, Zosyn, Bactrim, nitrofurantoin. Antibiotics changed to Invanz and consult added for Dr. Navarro. Anticipate discharge back to [facility] tomorrow. 09/18: Patient is afebrile, heart rate 62, blood pressure 110/64, pulse ox 95% on 3 L nasal cannula. Cardiology is following the patient was agreement for oral Bumex yesterday. Patient has been seen by Dr. Navarro for ESBL E. coli urinary tract infection with recommendations for Invanz. Dr. Navarro has recommended another 7 days of Invanz [facility]. Midline will be ordered today. Patient will be discharged to [facility] once all arrangements are completed. Discharge diagnoses: 1. Acute hypoxic respiratory failure secondary to acute on chronic diastolic heart failure. 2. Fluid overload with generalized anasarca. 3. Bilateral lower extremity cellulitis. 4. Sinusitis and acute tracheobronchitis. 5. History of DVT. 6. Chronic atrial fibrillation and history of bradycardia status post permanent pacemaker implantation. 7. Diabetes mellitus type 2. 8. Hypertension. 9. Hyperlipidemia. 10. 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 Staples, status post radiation therapy. 11. Chronic kidney disease stage III. 12. Urinary retention requiring Alfredo catheter placement. 13. Acute ESBL E. coli urinary tract infection, present on admission secondary to urinary retention. Discharge plan: Return to [facility] Impression and plan of care have been directed as dictated by the signing physician. Nini Malone nurse practitioner acting as scribe for signing physician. Patient Condition at Discharge: Good Plan - Discharge Summary New Discharge Prescriptions: New Bumetanide [BUMEX] 2 mg PO DAILY tab Bumetanide [BUMEX] 1 mg PO 1600 tab Fluticasone Nasal [place] [Flonase Nasal [place]] 2 spray EA NOSTRIL DAILY spr SILVER sulfADIAZINE Cream [Silvadene 1% Cream] 1 applic TOPICAL DAILY applic Ertapenem [INVanz] 1 gm IVPB DAILY@1200 #7 vial Continue Anastrozole [Arimidex] 1 mg PO DAILY@0800 Aspirin [Adult Low Dose Aspirin EC] 81 mg PO DAILY@1700 Cyanocobalamin (Vitamin B-12) [Vitamin B-12] 2,500 mcg PO DAILY@1200 Ascorbic Acid [Vitamin C] 500 mg PO DAILY@1200 Apixaban [Eliquis] 2.5 mg PO BID@0800,1700 Acetaminophen Tab [Tylenol] 650 mg PO BID@0800,1700 amLODIPine [Norvasc] 5 mg PO DAILY@1200 Bisacodyl [Dulcolax] 10 mg RECTAL DAILY PRN PRN Reason: Constipation Na Phos,M-B/Na Phos,Di-Ba [Fleet Adult] 133 ml RECTAL DAILY PRN PRN Reason: Constipation Acetaminophen Tab [Tylenol] 650 mg PO Q6HR PRN tab PRN Reason: Mild Pain Guaifenesin/Dextromethorphan [guaiFENesin DM] 10 ml PO Q6H PRN PRN Reason: Cough Naproxen Sodium [Aleve] 220 mg PO Q12H PRN PRN Reason: Shoulder Pain Ipratropium-Albuterol Nebulize [Duoneb 0.5 mg-3 mg/3 ml Soln] 3 ml INHALATION RT-QID@00,06,12,18 Clobetasol Propionate [Temovate 0.05% Cream] 1 applic TOPICAL BID Carvedilol [Coreg] 6.25 mg PO BID@0800,1700 Xgeva Solution 120mg/1.7ml 120 mg SQ Q28D Insulin Detemir (Levemir) [Levemir] 26 unit SQ HS@2130 Cholecalciferol (Vitamin D3) [Vitamin D3] 2,000 unit PO DAILY@0800 Insulin Aspart [NovoLOG] 11 units SQ AC-BRKFST@0700 Insulin Aspart [NovoLOG] 14 units SQ AC-SUPPER@1630 Insulin Aspart [NovoLOG] 5 units SQ AC-LUNCH@1100 Magnesium Hydroxide [Milk of Magnesia Concentrate] 7,200 mg PO DAILY PRN PRN Reason: Constipation Discontinued Furosemide [Lasix] 80 mg PO BID@0800,1700 Discharge Medication List Anastrozole [Arimidex] 1 mg PO DAILY@0800 05/14/15 [History] Aspirin [Adult Low Dose Aspirin EC] 81 mg PO DAILY@1700 10/06/17 [History] Apixaban [Eliquis] 2.5 mg PO BID@0800,1700 06/26/18 [History] Ascorbic Acid [Vitamin C] 500 mg PO DAILY@1200 06/26/18 [History] Cyanocobalamin (Vitamin B-12) [Vitamin B-12] 2,500 mcg PO DAILY@1200 06/26/18 [History] Acetaminophen Tab [Tylenol] 650 mg PO BID@0800,1700 07/18/18 [History] Bisacodyl [Dulcolax] 10 mg RECTAL DAILY PRN 07/18/18 [History] Na Phos,M-B/Na Phos,Di-Ba [Fleet Adult] 133 ml RECTAL DAILY PRN 07/18/18 [History] amLODIPine [Norvasc] 5 mg PO DAILY@1200 07/18/18 [History] Acetaminophen Tab [Tylenol] 650 mg PO Q6HR PRN tab 07/31/18 [Rx] Carvedilol [Coreg] 6.25 mg PO BID@0800,1700 09/14/19 [History] Cholecalciferol (Vitamin D3) [Vitamin D3] 2,000 unit PO DAILY@0800 09/14/19 [History] Clobetasol Propionate [Temovate 0.05% Cream] 1 applic TOPICAL BID 09/14/19 [History] Guaifenesin/Dextromethorphan [guaiFENesin DM] 10 ml PO Q6H PRN 09/14/19 [History] Insulin Aspart [NovoLOG] 5 units SQ AC-LUNCH@1100 09/14/19 [History] Insulin Aspart [NovoLOG] 11 units SQ AC-BRKFST@0700 09/14/19 [History] Insulin Aspart [NovoLOG] 14 units SQ AC-SUPPER@1630 09/14/19 [History] Insulin Detemir (Levemir) [Levemir] 26 unit SQ HS@2130 09/14/19 [History] Ipratropium-Albuterol Nebulize [Duoneb 0.5 mg-3 mg/3 ml Soln] 3 ml INHALATION RT-QID@00,06,12,18 09/14/19 [History] Magnesium Hydroxide [Milk of Magnesia Concentrate] 7,200 mg PO DAILY PRN 09/14/19 [History] Naproxen Sodium [Aleve] 220 mg PO Q12H PRN 09/14/19 [History] Xgeva Solution 120mg/1.7ml 120 mg SQ Q28D 09/14/19 [History] Bumetanide [BUMEX] 1 mg PO 1600 tab 09/18/19 [Rx] Bumetanide [BUMEX] 2 mg PO DAILY tab 09/18/19 [Rx] Ertapenem [INVanz] 1 gm IVPB DAILY@1200 #7 vial 09/18/19 [Rx] Fluticasone Nasal [place] [Flonase Nasal [place]] 2 spray EA NOSTRIL DAILY spr 09/18/19 [Rx] SILVER sulfADIAZINE Cream [Silvadene 1% Cream] 1 applic TOPICAL DAILY applic 09/18/19 [Rx] Follow up Appointment(s)/Referral(s): Syeda Peraza MD [Primary Care Provider] - 1 Week (at [facility]) Ambulatory/Diagnostic Orders: Basic Metabolic Panel [LAB.AMB] Location: None Selected Complete Blood Count w/diff [LAB.AMB] Location: None Selected Activity/Diet/Wound Care/Special Instructions: Continue local wound care daily to bilateral lower extremity with Silvadene wraps. [facility] Discharge Disposition: TRANSFER TO SNF/ECF
[2019-09-18] MEDS ORDERED: BUMETANIDE 1 MG TAB PO SCH (09:00)
[2019-09-18] MEDS: APIXABAN 2.5 MG TABLET PO SCH (09:10)
[2019-09-18] MEDS: INSULIN ASPART (NovoLOG) 100 UNIT/ML VIAL SQ SCH ×5 (09:10→13:02)
[2019-09-18 10:06] LABS: Glucose,Whole Blood 285 mg/dL (75-99)
[2019-09-18] MEDS: CLOBETASOL PROP 0.05% CR 15GM TOPICAL SCH (10:15)
[2019-09-18] MEDS: SILVER sulfADIAZINE Cream 400 GM 1 APPLIC APPLIC TOPICAL SCH (10:15)
[2019-09-18] MEDS: amLODIPine 5 MG TAB PO SCH (10:16)
[2019-09-18] MEDS: CARVEDILOL 6.25 MG TAB PO SCH (10:17)
[2019-09-18] MEDS: CHOLECALCIFEROL 1,000 UNIT TAB PO SCH (10:17)
[2019-09-18] MEDS: AZITHROMYCIN 500 MG TAB PO SCH (10:17)
[2019-09-18] MEDS: FLUTICASONE 50MCG/SPRAY NASAL 16GM EA NOSTRIL SCH (10:21)
[2019-09-18] MEDS: ANASTROZOLE 1 MG TAB PO SCH (10:22)
[2019-09-18 12:00] LABS: Glucose,Whole Blood 362 mg/dL (75-99)
[2019-09-18 12:05] VITALS: BP 106/58; PULSE 66; TEMP 98
--- NOTE | 2019-09-18 12:50 | P.PN ---
Subjective Progress Note Date: 09/18/19 This is a pleasant 84-year-old female patient who sees Dr. Cardozo are regular basis with a past medical history significant for long-standing persistent atrial fibrillation on oral anticoagulation, status post permanent pacemaker implantation in 2018, chronic diastolic congestive heart failure, obesity, hypertension, and dyslipidemia as well as chronic kidney disease, presented to the hospital complaining of increasing in the shortness of breath as well as lower extremities edema. The patient somewhat is a poor historian and she is a resident at [facility]. Patient was initiated on IV Bumex, overall has been diuresing well. Her weight in the record isn't accurate. She came in at 77 kg its documented at 96 kg today. 09/16/2019 Patient seen and examined this morning, sitting up in the chair at bedside. Overall starting to feel better. Blood pressure 120/50 with a heart rate in the 60s, 91% on 4 L of oxygen. 09/17/2019 Patient seen and examined this morning. Weight is down 1.8 kg, IV Bumex has been discontinued and patient has been changed over to oral diuretics. Pressure 112/50 with a heart rate in the 60s, 95% on 4 L of oxygen. White blood cell count 6.0, hemoglobin 10.9, platelet count 221. Sodium 135, potassium 4.9, BUN 46, creatinine 1.3. 09/18/2019 Patient was seen and examined this morning, but pressure 106/58 with a heart rate in the 60s, 96% on 4 L of oxygen. Objective - Vital Signs Vital signs: Vital Signs Temp 98.0 F 09/18/19 11:35 Pulse 64 09/18/19 11:56 Resp 20 09/18/19 11:35 BP 106/58 09/18/19 11:35 Pulse Ox 96 09/18/19 11:35 Intake & Output 09/17/19 09/18/19 09/18/19 18:59 06:59 18:59 Intake Total 600 120 240 Output Total 500 1050 Balance 100 -930 240 Weight 121.5 kg Intake: Oral 600 120 240 Output: Urine 500 1050 Other: Voiding Method Indwelling Catheter Indwelling Catheter Indwelling Catheter # Voids 0 - Exam HEENT: Head is atraumatic, normocephalic. Pupils equal, round. Sclerae is anicteric. NECK: Supple. No JVD. No lymphadenopathy. No thyromegaly. LUNGS: Clear with diminished air entry to the bases bilaterally . No intercostal retractions. HEART: Irregularly irregular rate and rhythm. Systolic murmur. ABDOMEN: Soft. Bowel sounds are present. No masses. No tenderness. EXTREMITIES: 1+ bilateral pedal edema Jacinto wrap/dressings in place bilaterally, no significant drainage. NEUROLOGICAL: Patient is awake, alert and oriented x3. Cranial nerves 2 through 12 are grossly intact. - Labs CBC & Chem 7: 09/17/19 05:41 09/17/19 05:41 Labs: Abnormal Lab Results - Last 24 Hours (Table) 09/17/19 09/17/19 09/18/19 Range/Units 17:15 20:21 06:26 POC Glucose (mg/dL) 221 H 231 H 252 H (75-99) mg/dL 09/18/19 09/18/19 Range/Units 10:01 11:58 POC Glucose (mg/dL) 285 H 362 H (75-99) mg/dL Microbiology - Last 24 Hours (Table) 09/14/19 13:53 Blood Culture - Preliminary Blood No Growth after 72 hours 09/14/19 21:16 Urine Culture - Final Urine,Catheterized Escherichia coli Assessment and Plan Plan: Assessment and Plan: 1. Acute hypoxic respiratory failure secondary to acute on chronic diastolic heart failure. 2. Fluid overload with generalized anasarca. 3. Bilateral lower extremity cellulitis. 4. Sinusitis and acute tracheobronchitis. 5. History of DVT. 6. Chronic atrial fibrillation and history of bradycardia status post permanent pacemaker implantation. 7. Diabetes mellitus type 2. 8. Hypertension. 9. Hyperlipidemia. 10. 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 Staples, status post radiation therapy. 11. Chronic kidney disease stage III. Plan From cardiology's perspective, we'll continue the patient on her current medications. She will return to [facility] on discharge from here. DNP note has been reviewed, I agree with a documented findings and plan of care. Patient was seen and examined.
--- NOTE | 2019-09-18 12:52 | PN ---
PROGRESS NOTE DATE OF SERVICE: 09/18/2019 REASON FOR FOLLOWUP: ESBL E coli urinary tract infection. INTERVAL HISTORY: The patient is currently afebrile. The patient has been breathing comfortably. Patient denies any chest pain or any cough. No abdominal pain and no diarrhea. PHYSICAL EXAMINATION: Blood pressure 106/58 with a pulse of 66, temperature 98. She is 96% on 4 L nasal cannula. General description is an elderly female up in the chair in no distress. RESPIRATORY SYSTEM: Unlabored breathing, clear to auscultation anteriorly. HEART: S1, S2. Regular rate and rhythm. ABDOMEN: Soft. No tenderness. LABS: No new labs have been obtained today. DIAGNOSTIC IMPRESSION AND PLAN: Patient with ESBL Escherichia coli urinary tract infection. Patient clinically responding to Invanz to continue for another 7 days to finish course of therapy and monitor clinical course closely. Continue supportive care. MMODL / MARTINN: [id number] /
[2019-09-18] MEDS: ERTAPENEM 1 GM in SODIUM CHLORIDE 0.9% 50 ML IVPB SCH (13:01)
== END 2019-09-18 13:47 | DRG 291 ==
LOC: EC 01:01 → 3SCARD 03:17 → OBSVTOIN 03:17 → 3SCARD 14:01
PROVIDERS: ADMIT Internal Medicine; ATTEND Internal Medicine
PROC: 05HF33Z Insertion of Infusion Device into Left Cephalic Vein, Percutaneous Approach (ICD-10-PCS; principal; 2019-09-18 12:00)
DX: I13.0 Hypertensive heart and chronic kidney disease with heart failure and stage 1 through stage 4 chronic kidney disease, or unspecified chronic kidney disease (principal); I50.33 Acute on chronic diastolic (congestive) heart failure; J96.01 Acute respiratory failure with hypoxia; C79.51 Secondary malignant neoplasm of bone; I48.11 Longstanding persistent atrial fibrillation; L03.115 Cellulitis of right lower limb; L03.116 Cellulitis of left lower limb; N39.0 Urinary tract infection, site not specified; Z16.12 Extended spectrum beta lactamase (ESBL) resistance; Z68.41 Body mass index [BMI] 40.0-44.9, adult; C50.911 Malignant neoplasm of unspecified site of right female breast; Z92.3 Personal history of irradiation; Z90.11 Acquired absence of right breast and nipple; E11.22 Type 2 diabetes mellitus with diabetic chronic kidney disease; J20.9 Acute bronchitis, unspecified; N18.3 Chronic kidney disease, stage 3 (moderate); R33.9 Retention of urine, unspecified; I08.3 Combined rheumatic disorders of mitral, aortic and tricuspid valves; E66.01 Morbid (severe) obesity due to excess calories; B96.20 Unspecified Escherichia coli [E. coli] as the cause of diseases classified elsewhere; E78.5 Hyperlipidemia, unspecified; Z79.01 Long term (current) use of anticoagulants; Z79.4 Long term (current) use of insulin; Z79.811 Long term (current) use of aromatase inhibitors; Z79.82 Long term (current) use of aspirin; Z79.899 Other long term (current) drug therapy; Z82.49 Family history of ischemic heart disease and other diseases of the circulatory system; Z83.3 Family history of diabetes mellitus; Z86.718 Personal history of other venous thrombosis and embolism; Z87.442 Personal history of urinary calculi; Z95.0 Presence of cardiac pacemaker; Z90.49 Acquired absence of other specified parts of digestive tract; J32.9 Chronic sinusitis, unspecified; Z98.51 Tubal ligation status; Z98.49 Cataract extraction status, unspecified eye; Z91.81 History of falling; Z87.440 Personal history of urinary (tract) infections
CPT/HCPCS: 36410; 36415; 71046; 76937; 78582; 80048; 80053; 81001; 83605; 83880; 84484; 85025; 85379; 85610; 85730; 87040; 87077; 87086; 87186; 87502; 93005; 93306; 94640; 94760; 96374; 96375; 99285

== ENCOUNTER 2020-03-20 09:01 | Observation (INO) | payer MEDICARE, OTHER ==
--- NOTE | 2020-03-20 09:20 | ED ---
General Adult HPI - General Stated complaint: Covid Time Seen by Provider: 03/20/20 09:03 Source: patient, EMS, RN notes reviewed - History of Present Illness Initial comments: 84-year-old female with a complicated past medical history including atrial fibrillation on eliquis, diabetes mellitus, DVT, hyperlipidemia, hypertension, renal disease presents to the emergency room for a chief complaint of positive Covid testing.. Patient lives in [facility]. Patient does not have any symptoms of Covid. She does not have cough or sore throat congestion. No shortness of breath. States she feels fine.Patient has no other complaints at this time including shortness of breath, chest pain, abdominal pain, nausea or vomiting, headache, or visual changes. - Related Data Home Medications Medication Instructions Recorded Confirmed Aspirin [Adult Low Dose Aspirin EC] 81 mg PO DAILY@1700 10/06/17 03/20/20 Apixaban [Eliquis] 2.5 mg PO BID@0800,1700 06/26/18 03/20/20 Ascorbic Acid [Vitamin C] 500 mg PO DAILY@1200 06/26/18 03/20/20 Cyanocobalamin (Vitamin B-12) 2,500 mcg PO DAILY@1200 06/26/18 03/20/20 [Vitamin B-12] Acetaminophen Tab [Tylenol] 650 mg PO BID@0800,1700 07/18/18 03/20/20 amLODIPine [Norvasc] 5 mg PO DAILY@1200 07/18/18 03/20/20 bisacodyL [Dulcolax] 10 mg RECTAL DAILY PRN 07/18/18 03/20/20 Cholecalciferol (Vitamin D3) 2,000 unit PO DAILY@0800 09/14/19 03/20/20 [Vitamin D3] Clobetasol Propionate [Temovate 1 applic TOPICAL BID 09/14/19 03/20/20 0.05% Cream] Guaifenesin/Dextromethorphan 10 ml PO Q6H PRN 09/14/19 03/20/20 [guaiFENesin DM] Insulin Aspart [NovoLOG] 9 units SQ AC-BRKFST@0700 09/14/19 03/20/20 Insulin Aspart [NovoLOG] 10 units SQ AC-LUNCH@1100 09/14/19 03/20/20 Insulin Aspart [NovoLOG] 12 units SQ AC-SUPPER@1630 09/14/19 03/20/20 Insulin Detemir (Levemir) [Levemir] 26 unit SQ HS@2130 09/14/19 03/20/20 Ipratropium-Albuterol Nebulize 3 ml INHALATION RT-QID PRN 09/14/19 03/20/20 [Duoneb 0.5 mg-3 mg/3 ml Soln] Magnesium Hydroxide [Milk of 7,200 mg PO DAILY PRN 09/14/19 03/20/20 Magnesia Concentrate] Naproxen Sodium [Aleve] 220 mg PO Q12H PRN 09/14/19 03/20/20 carvediloL [Coreg] 6.25 mg PO BID@0800,1700 09/14/19 03/20/20 Acetaminophen Suppository [Tylenol 650 mg RECTAL Q4H PRN 03/20/20 03/20/20 Suppository] Bumetanide [BUMEX] 2 mg PO BID@0800,1700 03/20/20 03/20/20 Hyoscyamine Sulfate [Levsin] 0.125 - 0.25 mg PO Q4H PRN 03/20/20 03/20/20 Morphine Sulfate [Morphine Sulfate 20 mg PO Q3H PRN 03/20/20 03/20/20 Oral Soln Conc (20 MG/ML)] Na Phos,M-B/Na Phos,Di-Ba [Fleet 133 ml RECTAL DAILY PRN 03/20/20 03/20/20 Adult] Oxybutynin Xl [Ditropan Xl] 5 mg PO DAILY 03/20/20 03/20/20 Previous Rx's Medication Instructions Recorded Acetaminophen Tab [Tylenol] 650 mg PO Q6HR PRN tab 07/31/18 Fluticasone Nasal [place] [Flonase 2 spray EA NOSTRIL DAILY spr 09/18/19 Nasal [place]] Allergies Allergy/AdvReac Type Severity Reaction Status Date / Time tuberculin, purified protein Allergy Unknown Verified 03/20/20 09:23 deriva tuberculin,PPD,multi-puncture Allergy Unknown Verified 03/20/20 09:23 codeine AdvReac Abdominal Verified 03/20/20 09:23 Pain Review of Systems ROS Statement: Those systems with pertinent positive or pertinent negative responses have been documented in the HPI. ROS Other: All systems not noted in ROS Statement are negative. Past Medical History Past Medical History: Atrial Flutter, Cancer, Diabetes Mellitus, Deep Vein Thrombosis (DVT), Eye Disorder, Hyperlipidemia, Hypertension, Memory Impairment, Renal Disease Additional Past Medical History / Comment(s): hx. rt breast cancer-2014 has mets to spine(sx and radiation tx and currently reciving hormone blockers, metastasis to spine-gets tx.hx of anemia requiring blood transfusion, DVT leg years ago, uses walker, bone CA-sees dr hu, kidney stones(sx), uti's/urosepsis/ba cteremia,ad foot fx-no sx just casted. 2016 fall/rhabomyolosis/akf. family stated pt has kidney disease but refused to seek tx per specilaist" History of Any Multi-Drug Resistant Organisms: None Reported Date of last positivie culture/infection: 09/14/19 MDRO Source:: urine ESBL Past Surgical History: Breast Surgery, Cholecystectomy, Heart Catheterization, Tubal Ligation Additional Past Surgical History / Comment(s): right mastectomy, cataracts removed, excision of lesion rt cheek, steroid inj in past for heel spur, lithotripsy Past Anesthesia/Blood Transfusion Reactions: No Reported Reaction Past Psychological History: No Psychological Hx Reported - Past Family History Mother Family Medical History: Diabetes Mellitus Father Family Medical History: Congestive Heart Failure (CHF) General Exam General appearance: alert, in no apparent distress Head exam: Present: atraumatic, normocephalic, normal inspection Eye exam: Present: normal appearance, PERRL, EOMI. Absent: scleral icterus, conjunctival injection, periorbital swelling ENT exam: Present: normal exam, mucous membranes moist Neck exam: Present: normal inspection, full ROM. Absent: tenderness, meningismus, lymphadenopathy Respiratory exam: Present: normal lung sounds bilaterally. Absent: respiratory distress, wheezes, rales, rhonchi, stridor Cardiovascular Exam: Present: regular rate, normal rhythm, normal heart sounds. Absent: systolic murmur, diastolic murmur, rubs, gallop, clicks GI/Abdominal exam: Present: soft, normal bowel sounds. Absent: distended, tenderness, guarding, rebound, rigid Course Vital Signs 03/20/20 03/20/20 09:24 10:52 Temperature 97.8 F Pulse Rate 61 60 Respiratory 18 16 Rate Blood Pressure 120/54 126/55 O2 Sat by Pulse 95 96 Oximetry EKG Findings - EKG Comments: EKG Findings:: A flutter, ventricular rate 60, paced, QRS duration 140, QTC 474 Medical Decision Making - Medical Decision Making Vitals are stable. Patient is 95% on room air. She is afebrile. She is completely asymptomatic. Lab results and imaging were reviewed. At this time patient will be admitted for further monitoring. - Lab Data Result diagrams: 03/20/20 10:27 03/20/20 09:52 Lab Results 03/20/20 03/20/20 Range/Units 09:52 09:52 Sodium 135 L (137-145) mmol/L Potassium 4.8 (3.5-5.1) mmol/L Chloride 101 (98-107) mmol/L Carbon Dioxide 29 (22-30) mmol/L Anion Gap 5 mmol/L BUN 35 H (7-17) mg/dL Creatinine 1.10 H (0.52-1.04) mg/dL Est GFR (CKD-EPI)AfAm 54 (>60 ml/min/1.73 sqM) Est GFR (CKD-EPI)NonAf 47 (>60 ml/min/1.73 sqM) Glucose 181 H (74-99) mg/dL Plasma Lactic Acid Frank 1.0 (0.7-2.0) mmol/L Calcium 10.7 H (8.4-10.2) mg/dL Magnesium 2.1 (1.6-2.3) mg/dL Total Bilirubin 0.7 (0.2-1.3) mg/dL AST 26 (14-36) U/L ALT 14 (4-34) U/L Alkaline Phosphatase 92 (38-126) U/L Lactate Dehydrogenase 709 H (313-618) U/L C-Reactive Protein 21.9 H (<10.0) mg/L Total Protein 6.9 (6.3-8.2) g/dL Albumin 3.7 (3.5-5.0) g/dL Disposition Clinical Impression: Lab test positive for detection of COVID-19 virus Disposition: ADMITTED IP TO THIS HOSP Condition: Fair Is patient prescribed a controlled substance at d/c from ED?: No Time of Disposition: 10:10
[2020-03-20] MEDS ORDERED: NALOXONE 0.4 MG/ML 1 ML VIAL IV PRN (10:10)
--- NOTE | 2020-03-20 10:11 | XR ---
EXAMINATION TYPE: XR chest 1V portable DATE OF EXAM: 03/20/2020 CLINICAL HISTORY: Pneumonia. Suspected Covid 19 pneumonia. TECHNIQUE: Portable frontal view of the chest obtained. COMPARISON: 09/14/2019 chest radiograph FINDINGS: Left-sided dual-chamber pacemaker. Cardiomegaly redemonstrated. Mediastinal silhouette nor mal. Asymmetric haziness of the left lung base. No pleural effusion, or pneumothorax seen. The osseou s structures are intact. IMPRESSION: Asymmetric haziness of the left lung base is likely due to overlapping breast soft tissue , however airspace opacity not excluded. If there is high clinical suspicion, consider obtaining late ral chest radiograph.
[2020-03-20 10:17] LABS: Albumin 3.7 g/dL (3.5-5.0); C Reactive Protein 21.9 mg/L (<10.0); Calcium 10.7 mg/dL (8.4-10.2); Magnesium 2.1 mg/dL (1.6-2.3); Potassium 4.8 mmol/L (3.5-5.1); Total Bilirubin 0.7 mg/dL (0.2-1.3); Total Protein 6.9 g/dL (6.3-8.2)
[2020-03-20 11:00] LABS: Basophils % (A) 0 %; Eosinophils # (A) 0.2 k/uL (0-0.7); Eosinophils % (A) 2 %; HCT 35.2 % (34.0-46.0); HGB 10.6 gm/dL (11.4-16.0); Hypochromasia Marked; Lymphocytes # (A) 0.8 k/uL (1.0-4.8); Lymphocytes % (A) 13 %; MCH 22.9 pg (25.0-35.0); MCHC 30.1 g/dL (31.0-37.0); MCV 76.2 fL (80.0-100.0); Mean Platelet Volume 8.4; Microcytosis Slight; Monocytes # (A) 0.5 k/uL (0-1.0); Monocytes % (A) 8 %; Neutrophils # (A) 4.5 k/uL (1.3-7.7); Neutrophils % (A) 73 %; Platelet Count 175 k/uL (150-450); RBC 4.62 m/uL (3.80-5.40); RDW 15.8 % (11.5-15.5); WBC 6.2 k/uL (3.8-10.6)
[2020-03-20 12:10] LABS: Prothrombin Time 10.6 sec (9.0-12.0)
[2020-03-20 12:18] LABS: Glucose,Whole Blood 177 mg/dL (75-99)
[2020-03-20] MEDS: INSULIN ASPART (NovoLOG) 100 UNIT/ML VIAL SQ SCH ×3 (12:37→21:34)
[2020-03-20 16:41] LABS: Ferritin 219.7 ng/mL (10.0-291.0)
[2020-03-20] MEDS ORDERED: bisacodyL 10 MG SUPP RECTAL PRN (17:07)
[2020-03-20] MEDS ORDERED: ACETAMINOPHEN TAB 325 MG TAB PO PRN (17:07)
[2020-03-20] MEDS ORDERED: guaiFENesin-DM 100-10MG/5ML 10 ML CUP PO PRN (17:07)
[2020-03-20] MEDS ORDERED: MAGNESIUM HYDROXIDE 2,400 MG/10 ML CUP PO PRN (17:07)
[2020-03-20] MEDS ORDERED: IPRATROPIUM-ALBUTEROL 3 ML NEB INHALATION PRN (17:07)
[2020-03-20 17:37] LABS: Glucose,Whole Blood 277 mg/dL (75-99)
[2020-03-20] MEDS: SODIUM CHLORIDE 0.9% 1,000 ML IV SCH (19:27)
[2020-03-20 20:53] LABS: Glucose,Whole Blood 229 mg/dL (75-99)
[2020-03-20] MEDS ORDERED: INSULIN DETEMIR (LEVEMIR) 100 UNIT/ML SYR SQ SCH (21:30)
[2020-03-20] MEDS: CLOBETASOL PROP 0.05% CR 15GM TOPICAL SCH (22:05)
[2020-03-21] MEDS ORDERED: INSULIN ASPART (NovoLOG) 100 UNIT/ML VIAL SQ SCH ×3 (07:00→16:30)
[2020-03-21 07:20] LABS: Glucose,Whole Blood 171 mg/dL (75-99)
[2020-03-21] MEDS ORDERED: PANTOPRAZOLE 40 MG TABLET PO SCH (07:30)
[2020-03-21 07:52] LABS: Basophils % (A) 0 %; Eosinophils # (A) 0.2 k/uL (0-0.7); Eosinophils % (A) 2 %; HCT 34.7 % (34.0-46.0); HGB 10.2 gm/dL (11.4-16.0); Hypochromasia Marked; Lymphocytes % (A) 12 %; MCH 22.9 pg (25.0-35.0); MCHC 29.5 g/dL (31.0-37.0); MCV 77.7 fL (80.0-100.0); Mean Platelet Volume 7.5; Microcytosis Slight; Monocytes # (A) 0.6 k/uL (0-1.0); Monocytes % (A) 8 %; Neutrophils # (A) 5.9 k/uL (1.3-7.7); Neutrophils % (A) 75 %; Platelet Count 238 k/uL (150-450); RBC 4.46 m/uL (3.80-5.40); RDW 15.7 % (11.5-15.5); WBC 7.8 k/uL (3.8-10.6)
[2020-03-21] MEDS ORDERED: ACETAMINOPHEN TAB 325 MG TAB PO SCH (08:00)
[2020-03-21] MEDS ORDERED: BUMETANIDE 1 MG TAB PO SCH (08:00)
[2020-03-21] MEDS ORDERED: carvediloL 6.25 MG TAB PO SCH (08:00)
[2020-03-21] MEDS ORDERED: APIXABAN 2.5 MG TABLET PO SCH (08:00)
[2020-03-21] MEDS ORDERED: CHOLECALCIFEROL 1,000 UNIT TAB PO SCH (08:00)
[2020-03-21] MEDS: CLOBETASOL PROP 0.05% CR 15GM TOPICAL SCH (08:02)
[2020-03-21] MEDS: INSULIN ASPART (NovoLOG) 100 UNIT/ML VIAL SQ SCH ×2 (08:03→12:33)
[2020-03-21 08:09] LABS: Albumin 3.4 g/dL (3.5-5.0); Calcium 10.3 mg/dL (8.4-10.2); Potassium 4.1 mmol/L (3.5-5.1); Total Bilirubin 0.7 mg/dL (0.2-1.3); Total Protein 6.3 g/dL (6.3-8.2)
[2020-03-21] MEDS ORDERED: FLUTICASONE 50MCG/SPRAY NASAL 16GM EA NOSTRIL SCH (09:00)
[2020-03-21] MEDS ORDERED: OXYBUTYNIN XL 5 MG TAB.ER.24 PO SCH (09:00)
--- NOTE | 2020-03-21 10:26 | P.HPIM ---
History of Present Illness H&P Date: 03/20/20 Emy is a very year old female pt of mine with a previous medical history significant for diabetes mellitus type 2, hyperlipidemia, hypertension,History of chronic kidney disease stage III, DVT, chronic atrial fibrillation with bradycardia status post permanent pacemaker implantation on eliquis, chronic diastolic heart failure with known EF of 55-60% with mild LVH. history of breast cancer She had a palpable right breast mass which she first noticed in early 2011 but did not seek medical attention for it until it became significantly larger, November 2013 she had mammograms which revealed a large suspicious mass in the left breast, biopsy confirmed invasive carcinoma. 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 Staging PET scan done on 12/14/13 revealed diffuse skeletal metastasis, no visceral disease. She started arimidex in December 2013. She had a thoracic spine MRI 01/27/14 which revealed multiple soft tissue masses at thoracic spine. Completed XRT to T spine on 02/28/14. Was monthly IVPB zometa for bone mets, this was eventually switched to SQ xgeva. Treatment f/u bone scan 11/24/14 revealed improvement in her bone metastasis. She fell in November 2015, CT brain was negative for metastatic disease, CT of neck revealed stable bone lesions. CT CAP and bone scan on 12/18/15 revealed no evidence of disease progression. F/U scans 10/24/16 and 11/06/17 have both revealed stable disease subsequently she had disease progression while she was at [facility] and she was placed in hospice care for sometimes and eventually was recently discharged from hospice as the patient was doing fine, unfortunately patient was doing fine up until today with where she was tested positive for Covid 19 by PCR after a random testing where done for the whole residence at [facility] since one of the aides were tested positive, and the patient was transported to the hospital for evaluation and repeat PCR again prior to her going back to [facility]. Patient was completely astigmatic she has no fever or chills she has no loss of taste or smell she has no cough or shortness of breath she has no abdominal pain no diarrhea and no nausea or vomiting she appears at baseline. Review of Systems Constitutional: Reports chronic pain, Denies anorexia, Denies chronic headaches, Denies lethargy, Denies weakness Eyes: denies blurred vision, denies bulging eye, denies decreased vision Ears: bilateral: decreased hearing Cardiovascular: Reports edema, Denies chest pain, Denies decreased exercise tolerance, Denies dyspnea on exertion, Denies lightheadedness, Denies rapid heart beat, Denies shortness of breath Respiratory: Reports home oxygen, Reports sleep apnea, Denies congestion, Denies cough, Denies cough with sputum, Denies snoring, Denies wheezing Gastrointestinal: Denies abdominal pain, Denies bloating, Denies BRBPR, Denies heartburn, Denies loss of appetite, Denies melena, Denies nausea, Denies vomiting Genitourinary: Denies dysuria, Denies nocturia Menstruation: Reports postmenopausal Musculoskeletal: Reports gait dysfunction, Reports muscle weakness Musculoskeletal: bilateral: ankle swelling, foot swelling, absent: ankle pain, ankle stiffness, elbow pain, elbow stiffness, elbow swelling, foot pain, foot stiffness, hand pain, hand stiffness, hand swelling, hip pain, hip stiffness, hip swelling, knee pain, knee stiffness, knee swelling, shoulder pain, shoulder stiffness, shoulder swelling, wrist pain, wrist stiffness, wrist swelling Integumentary: Denies pruritus, Denies rash Neurological: Reports confusion, Reports gait dysfunction, Reports memory loss, Reports weakness, Denies vertigo Psychiatric: Reports anxiety, Denies depression, Denies sadness/tearfulness, Denies sleep disturbances, Denies suicidal ideation Endocrine: Denies fatigue, Denies weight change Past Medical History Past Medical History: Atrial Flutter, Cancer, Diabetes Mellitus, Deep Vein Thrombosis (DVT), Eye Disorder, Hyperlipidemia, Hypertension, Memory Impairment, Renal Disease Additional Past Medical History / Comment(s): hx. rt breast cancer-2014 has mets to spine(sx and radiation tx and currently reciving hormone blockers, metastasis to spine-gets tx.hx of anemia requiring blood transfusion, DVT leg years ago, uses walker, bone CA-sees dr hu, kidney stones(sx), uti's/urosepsis/bacteremia,ad foot fx-no sx just casted. 2016 fall/rhabomyolosis/akf. family stated pt has kidney disease but refused to seek tx per specilaist" History of Any Multi-Drug Resistant Organisms: None Reported Date of last positivie culture/infection: 09/14/19 MDRO Source:: urine ESBL Past Surgical History: Breast Surgery, Cholecystectomy, Heart Catheterization, Tubal Ligation Additional Past Surgical History / Comment(s): right mastectomy, cataracts removed, excision of lesion rt cheek, steroid inj in past for heel spur, lithotripsy Past Anesthesia/Blood Transfusion Reactions: No Reported Reaction Additional Past Anesthesia/Blood Transfusion Reaction / Comment(s): Pt has received blood in past without reaction. Type of Cardiac Device: Permanent Pacemaker Device Placement Date:: 2017 Past Psychological History: No Psychological Hx Reported - Past Family History Mother Family Medical History: Diabetes Mellitus Father Family Medical History: Congestive Heart Failure (CHF) Medications and Allergies Home Medications Medication Instructions Recorded Confirmed Type Aspirin [Adult Low Dose Aspirin EC] 81 mg PO DAILY@1700 10/06/17 03/20/20 History Apixaban [Eliquis] 2.5 mg PO BID@0800,1700 06/26/18 03/20/20 History Ascorbic Acid [Vitamin C] 500 mg PO DAILY@1200 06/26/18 03/20/20 History Cyanocobalamin (Vitamin B-12) 2,500 mcg PO DAILY@1200 06/26/18 03/20/20 History [Vitamin B-12] Acetaminophen Tab [Tylenol] 650 mg PO BID@0800,1700 07/18/18 03/20/20 History amLODIPine [Norvasc] 5 mg PO DAILY@1200 07/18/18 03/20/20 History bisacodyL [Dulcolax] 10 mg RECTAL DAILY PRN 07/18/18 03/20/20 History Acetaminophen Tab [Tylenol] 650 mg PO Q6HR PRN tab 07/31/18 03/20/20 Rx Cholecalciferol (Vitamin D3) 2,000 unit PO DAILY@0800 09/14/19 03/20/20 History [Vitamin D3] Clobetasol Propionate [Temovate 1 applic TOPICAL BID 09/14/19 03/20/20 History 0.05% Cream] Guaifenesin/Dextromethorphan 10 ml PO Q6H PRN 09/14/19 03/20/20 History [guaiFENesin DM] Insulin Aspart [NovoLOG] 9 units SQ AC-BRKFST@0700 09/14/19 03/20/20 History Insulin Aspart [NovoLOG] 10 units SQ AC-LUNCH@1100 09/14/19 03/20/20 History Insulin Aspart [NovoLOG] 12 units SQ AC-SUPPER@1630 09/14/19 03/20/20 History Insulin Detemir (Levemir) [Levemir] 26 unit SQ HS@2130 09/14/19 03/20/20 History Ipratropium-Albuterol Nebulize 3 ml INHALATION RT-QID PRN 09/14/19 03/20/20 History [Duoneb 0.5 mg-3 mg/3 ml Soln] Magnesium Hydroxide [Milk of 7,200 mg PO DAILY PRN 09/14/19 03/20/20 History Magnesia Concentrate] Naproxen Sodium [Aleve] 220 mg PO Q12H PRN 09/14/19 03/20/20 History carvediloL [Coreg] 6.25 mg PO BID@0800,1700 09/14/19 03/20/20 History Fluticasone Nasal [place] [Flonase 2 spray EA NOSTRIL DAILY spr 09/18/19 03/20/20 Rx Nasal [place]] Acetaminophen Suppository [Tylenol 650 mg RECTAL Q4H PRN 03/20/20 03/20/20 History Suppository] Bumetanide [BUMEX] 2 mg PO BID@0800,1700 03/20/20 03/20/20 History Hyoscyamine Sulfate [Levsin] 0.125 - 0.25 mg PO Q4H PRN 03/20/20 03/20/20 Hist ory Morphine Sulfate [Morphine Sulfate 20 mg PO Q3H PRN 03/20/20 03/20/20 History Oral Soln Conc (20 MG/ML)] Na Phos,M-B/Na Phos,Di-Ba [Fleet 133 ml RECTAL DAILY PRN 03/20/20 03/20/20 History Adult] Oxybutynin Xl [Ditropan Xl] 5 mg PO DAILY 03/20/20 03/20/20 History Allergies Allergy/AdvReac Type Severity Reaction Status Date / Time tuberculin, purified protein Allergy Unknown Verified 03/20/20 09:23 deriva tuberculin,PPD,multi-puncture Allergy Unknown Verified 03/20/20 09:23 codeine AdvReac Abdominal Verified 03/20/20 09:23 Pain Physical Exam Vitals: Vital Signs Temp Pulse Pulse Resp BP BP Pulse Ox 03/20/20 16:16 97.5 F L 60 16 130/68 93 L 03/20/20 12:42 74 18 121/60 97 03/20/20 10:52 60 16 126/55 96 03/20/20 09:24 97.8 F 61 18 120/54 95 Intake and Output 03/20/20 03/20/20 03/20/20 06:59 14:59 22:59 Other: # Voids 2 Weight 90.718 kg Physical examination: HEENT: Head is atraumatic, normocephalic, pupils were equal round reactive to light and recommendation, extraocular muscle movement were intact, mucous membranes of the mouth are moist. Neck: Supple, no JVD, no primary. Chest: Decreased breath sounds at the bases, few rhonchi, no expiratory wheezes, no chest wall tenderness, no intercostal retractions. Heart: First heart sound is depressed, second heart sound is normal, there is systolic ejection murmur 2/6 located at the left sternal border, there is permanent pacemaker located in the left upper precordium. Abdomen: Soft, nontender, nondistended, positive bowel sounds. Extremities: There is +2 edema no calf tenderness, chronic skin changes due to stasis dermatitis, dorsalis pedis +1 bilaterally. Neurologic examination: Patient is awake alert and oriented 2, creatinine nerves III-12 appear grossly intact, muscle power 4 out of 5 in upper extremitie s and 3 out of 5 bilateral lower extremities, deep tendon or flexes were depressed bilaterally. Results CBC & Chem 7: 03/21/20 07:15 03/21/20 07:15 Labs: Abnormal Lab Results - Last 24 Hours (Table) 03/20/20 03/20/20 03/20/20 Range/Units 09:52 10:27 12:16 Hgb 10.6 L (11.4-16.0) gm/dL MCV 76.2 L (80.0-100.0) fL MCH 22.9 L (25.0-35.0) pg MCHC 30.1 L (31.0-37.0) g/dL RDW 15.8 H (11.5-15.5) % Lymphocytes # 0.8 L (1.0-4.8) k/uL Sodium 135 L (137-145) mmol/L BUN 35 H (7-17) mg/dL Creatinine 1.10 H (0.52-1.04) mg/dL Glucose 181 H (74-99) mg/dL POC Glucose (mg/dL) 177 H (75-99) mg/dL Calcium 10.7 H (8.4-10.2) mg/dL Lactate Dehydrogenase 709 H (313-618) U/L C-Reactive Protein 21.9 H (<10.0) mg/L Thrombosis Risk Factor Assmnt - DVT/VTE Prophylaxis DVT/VTE Prophylaxis: Pharmacologic Prophylaxis ordered, Mechanical Prophylaxis ordered - Choose All That Apply Any of the Below Risk Factors Present?: Yes Each Factor Represents 1 point: Obesity (BMI >25), Swollen legs (current) Other Risk Factors: Yes Each Risk Factor Represents 2 Points: Malignancy Each Risk Factor Represents 3 Points: Age 75 years or older, History of DVT/PE Other congenital or acquired thrombophilia - If yes, enter type in comment: No Thrombosis Risk Factor Assessment Total Risk Factor Score: 10 Thrombosis Risk Factor Assessment Level: High Risk Assessment and Plan Assessment: Assessment and plan: 1. Covid 19 positive PCR test result. Totally asymptomatic patient. Patient will be kept in droplet isolation with eye contact precautions, we will repeat her nasal swab by PCR and hopefully she will be able to go back to [facility] tomorrow morning. 2. Hypertension and hypertensive cardio vascular disease. Continue Coreg 6.25 mg orally twice every day and amlodipine 5 mg orally once every day. 3. Hyperlipidemia. Continue patient on low-cholesterol diet. 4. Diabetes mellitus type 2. Continue Levemir 26 units at bedtime along with the Humalog 9 units before breakfast 10 units before lunch and 12 units before supper, monitor blood glucose level before each meal and at bedtime. 5. Overactive bladder. Continue oxybutynin 5 mg orally once every day. 6. Proximal atrial fibrillation/flutter post permanent pacemaker placement continue patient on Coreg 6.25 mg orally twice every day as well as Eliquis 2.5 mg orally twice every day. 7. Chronic diastolic heart failure. Continue patient on Bumex 2 mg orally twice every day, Coreg 6.25 mg orally twice every day, monitor the patient and output and daily weight. 8. History of breast cancer with bone metastatic disease. Appears to be at baseline. 9. Constipation. Continue current BOWEL care. 10. DVT prophylaxis. Currently on Eliquis. 11. GI prophylaxis. Continue Protonix 40 mg orally once every day. 12. Chronic kidney disease stage III. Appears to be back to baseline. 13. DO NOT RESUSCITATE. 14. Admit patient is a length of stay 2 midnights.
--- NOTE | 2020-03-21 10:51 | P.DS ---
Providers Date of admission: 03/20/20 10:09 Expected date of discharge: 03/21/20 Attending physician: Syeda Peraza Primary care physician: Syeda Peraza Hospital Course: Emy is a very [id number] year old female pt of mine with a previous medical history significant for diabetes mellitus type 2, hyperlipidemia, hypertension,History of chronic kidney disease stage III, DVT, chronic atrial fibrillation with bradycardia status post permanent pacemaker implantation on eliquis, chronic diastolic heart failure with known EF of 55-60% with mild LVH. history of breast cancer She had a palpable right breast mass which she first noticed in early 2011 but did not seek medical attention for it until it became significantly larger, November 2013 she had mammograms which revealed a large suspicious mass in the left breast, biopsy confirmed invasive carcinoma. 11/28/13 she had a right mastectomy and axillary nodes resection, final pathology revealed a grade II, invasive ductal carcinoma, 4.5cm, 2 nodes were positive for metastatic disease, one microscopic mets and one macroscopic measuring 2.5cm, ER/[place] postive and HER2/FELA negative by FISH. Staging PET scan done on 12/14/13 revealed diffuse skeletal metastasis, no visceral disease. She started arimidex in December 2013. She had a thoracic spine MRI 01/27/14 which revealed multiple soft tissue masses at thoracic spine. Completed XRT to T spine on 02/28/14. Was monthly IVPB zometa for bone mets, this was eventually switched to SQ xgeva. Treatment f/u bone scan 11/24/14 revealed improvement in her bone metastasis. She fell in November 2015, CT brain was negative for metastatic disease, CT of neck revealed stable bone lesions. CT CAP and bone scan on 12/18/15 revealed no evidence of disease progression. F/U scans 10/24/16 and 11/06/17 have both revealed stable disease subsequently she had disease progression while she was at [facility] and she was placed in hospice care for sometimes and eventually was recently discharged from hospice as the patient was doing fine, unfortunately patient was doing fine up until today with where she was tested positive for Covid 19 by PCR after a random testing where done for the whole residence at [facility] since one of the aides were tested positive, and the patient was transported to the hospital for evaluation and repeat PCR again prior to her going back to [facility]. Patient was completely astigmatic she has no fever or chills she has no loss of taste or smell she has no cough or shortness of breath she has no abdominal pain no diarrhea and no nausea or vomiting she appears at baseline. discharge diagnoses: 1. Covid 19 PCR-Pending 2. Hypertension and hypertensive cardiovascular disease. 3. Hyperlipidemia. 4. Diabetes mellitus type 2. 5. Overactive bladder. 6. Proximal atrial fibrillation/flutter post permanent pacemaker placement. 7. Chronic diastolic heart failure. 8. History of breast cancer with bone metastatic disease. 9. Constipation. Patient Condition at Discharge: Fair Plan - Discharge Summary Discharge Rx Participant: No New Discharge Prescriptions: No Action Aspirin [Adult Low Dose Aspirin EC] 81 mg PO DAILY@1700 Cyanocobalamin (Vitamin B-12) [Vitamin B-12] 2,500 mcg PO DAILY@1200 Ascorbic Acid [Vitamin C] 500 mg PO DAILY@1200 Apixaban [Eliquis] 2.5 mg PO BID@0800,1700 Acetaminophen Tab [Tylenol] 650 mg PO BID@0800,1700 amLODIPine [Norvasc] 5 mg PO DAILY@1200 bisacodyL [Dulcolax] 10 mg RECTAL DAILY PRN PRN Reason: Constipation Acetaminophen Tab [Tylenol] 650 mg PO Q6HR PRN tab PRN Reason: Mild Pain Guaifenesin/Dextromethorphan [guaiFENesin DM] 10 ml PO Q6H PRN PRN Reason: Cough Naproxen Sodium [Aleve] 220 mg PO Q12H PRN PRN Reason: Shoulder Pain Ipratropium-Albuterol Nebulize [Duoneb 0.5 mg-3 mg/3 ml Soln] 3 ml INHALATION RT-QID PRN PRN Reason: Congestion Clobetasol Propionate [Temovate 0.05% Cream] 1 applic TOPICAL BID carvediloL [Coreg] 6.25 mg PO BID@0800,1700 Insulin Detemir (Levemir) [Levemir] 26 unit SQ HS@2130 Cholecalciferol (Vitamin D3) [Vitamin D3] 2,000 unit PO DAILY@0800 Insulin Aspart [NovoLOG] 9 units SQ AC-BRKFST@0700 Insulin Aspart [NovoLOG] 12 units SQ AC-SUPPER@1630 Insulin Aspart [NovoLOG] 10 units SQ AC-LUNCH@1100 Magnesium Hydroxide [Milk of Magnesia Concentrate] 7,200 mg PO DAILY PRN PRN Reason: Constipation Fluticasone Nasal [place] [Flonase Nasal [place]] 2 spray EA NOSTRIL DAILY spr Na Phos,M-B/Na Phos,Di-Ba [Fleet Adult] 133 ml RECTAL DAILY PRN PRN Reason: Constipation Morphine Sulfate [Morphine Sulfate Oral Soln Conc (20 MG/ML)] 20 mg PO Q3H PRN PRN Reason: Pain Hyoscyamine Sulfate [Levsin] 0.125 - 0.25 mg PO Q4H PRN PRN Reason: CRAMPS Bumetanide [BUMEX] 2 mg PO BID@0800,1700 Acetaminophen Suppository [Tylenol Suppository] 650 mg RECTAL Q4H PRN PRN Reason: general discomfort Oxybutynin Xl [Ditropan Xl] 5 mg PO DAILY Discharge Medication List Aspirin [Adult Low Dose Aspirin EC] 81 mg PO DAILY@1700 10/06/17 [History] Apixaban [Eliquis] 2.5 mg PO BID@0800,1700 06/26/18 [History] Ascorbic Acid [Vitamin C] 500 mg PO DAILY@1200 06/26/18 [History] Cyanocobalamin (Vitamin B-12) [Vitamin B-12] 2,500 mcg PO DAILY@1200 06/26/18 [History] Acetaminophen Tab [Tylenol] 650 mg PO BID@0800,1700 07/18/18 [History] amLODIPine [Norvasc] 5 mg PO DAILY@1200 07/18/18 [History] bisacodyL [Dulcolax] 10 mg RECTAL DAILY PRN 07/18/18 [History] Acetaminophen Tab [Tylenol] 650 mg PO Q6HR PRN tab 07/31/18 [Rx] Cholecalciferol (Vitamin D3) [Vitamin D3] 2,000 unit PO DAILY@0800 09/14/19 [History] Clobetasol Propionate [Temovate 0.05% Cream] 1 applic TOPICAL BID 09/14/19 [History] Guaifenesin/Dextromethorphan [guaiFENesin DM] 10 ml PO Q6H PRN 09/14/19 [History] Insulin Aspart [NovoLOG] 9 units SQ AC-BRKFST@0700 09/14/19 [History] Insulin Aspart [NovoLOG] 10 units SQ AC-LUNCH@1100 09/14/19 [History] Insulin Aspart [NovoLOG] 12 units SQ AC-SUPPER@1630 09/14/19 [History] Insulin Detemir (Levemir) [Levemir] 26 unit SQ HS@2130 09/14/19 [History] Ipratropium-Albuterol Nebulize [Duoneb 0.5 mg-3 mg/3 ml Soln] 3 ml INHALATION RT-QID PRN 09/14/19 [History] Magnesium Hydroxide [Milk of Magnesia Concentrate] 7,200 mg PO DAILY PRN 09/14/19 [History] Naproxen Sodium [Aleve] 220 mg PO Q12H PRN 09/14/19 [History] carvediloL [Coreg] 6.25 mg PO BID@0800,1700 09/14/19 [History] Fluticasone Nasal [place] [Flonase Nasal [place]] 2 spray EA NOSTRIL DAILY spr 09/18/19 [Rx] Acetaminophen Suppository [Tylenol Suppository] 650 mg RECTAL Q4H PRN 03/20/20 [History] Bumetanide [BUMEX] 2 mg PO BID@0800,1700 03/20/20 [History] Hyoscyamine Sulfate [Levsin] 0.125 - 0.25 mg PO Q4H PRN 03/20/20 [History] Morphine Sulfate [Morphine Sulfate Oral Soln Conc (20 MG/ML)] 20 mg PO Q3H PRN 03/20/20 [History] Na Phos,M-B/Na Phos,Di-Ba [Fleet Adult] 133 ml RECTAL DAILY PRN 03/20/20 [History] Oxybutynin Xl [Ditropan Xl] 5 mg PO DAILY 03/20/20 [History] Follow up Appointment(s)/Referral(s): Syeda Peraza MD [Primary Care Provider] - 1-2 days Demetra Arteaga, [NON-STAFF] - As Needed
[2020-03-21] MEDS ORDERED: CYANOCOBALAMIN 500 MCG TAB PO SCH (12:00)
[2020-03-21] MEDS ORDERED: amLODIPine 5 MG TAB PO SCH (12:00)
[2020-03-21] MEDS ORDERED: ASCORBIC ACID 500 MG TAB PO SCH (12:00)
[2020-03-21 12:04] LABS: Glucose,Whole Blood 179 mg/dL (75-99)
[2020-03-21] MEDS: SODIUM CHLORIDE 0.9% 1,000 ML IV SCH (12:24)
[2020-03-21 15:48] VITALS: BP 121/72; PULSE 77; RESP 18; TEMP 97.9
[2020-03-21] MEDS ORDERED: ASPIRIN 81 MG PO SCH (17:00)
== END 2020-03-21 16:19 ==
LOC: EC 09:01 → 4SSUR 10:09
PROVIDERS: ADMIT Internal Medicine; ATTEND Internal Medicine
DX: Z20.828 Contact with and (suspected) exposure to other viral communicable diseases (principal); I13.0 Hypertensive heart and chronic kidney disease with heart failure and stage 1 through stage 4 chronic kidney disease, or unspecified chronic kidney disease; I11.9 Hypertensive heart disease without heart failure; E78.5 Hyperlipidemia, unspecified; E11.22 Type 2 diabetes mellitus with diabetic chronic kidney disease; N32.81 Overactive bladder; I48.0 Paroxysmal atrial fibrillation; I48.92 Unspecified atrial flutter; I50.32 Chronic diastolic (congestive) heart failure; C50.911 Malignant neoplasm of unspecified site of right female breast; C79.51 Secondary malignant neoplasm of bone; K59.00 Constipation, unspecified; N18.3 Chronic kidney disease, stage 3 (moderate); R00.1 Bradycardia, unspecified; G89.29 Other chronic pain; M79.89 Other specified soft tissue disorders; E66.9 Obesity, unspecified; Z68.32 Body mass index [BMI] 32.0-32.9, adult; Z17.0 Estrogen receptor positive status [ER+]; Z79.01 Long term (current) use of anticoagulants; Z86.718 Personal history of other venous thrombosis and embolism; Z79.82 Long term (current) use of aspirin; Z79.899 Other long term (current) drug therapy; Z79.52 Long term (current) use of systemic steroids; Z79.4 Long term (current) use of insulin; Z88.7 Allergy status to serum and vaccine; Z88.5 Allergy status to narcotic agent; Z98.890 Other specified postprocedural states; Z86.2 Personal history of diseases of the blood and blood-forming organs and certain disorders involving the immune mechanism; Z87.442 Personal history of urinary calculi; Z87.440 Personal history of urinary (tract) infections; Z87.81 Personal history of (healed) traumatic fracture; Z91.81 History of falling; Z87.39 Personal history of other diseases of the musculoskeletal system and connective tissue; Z90.49 Acquired absence of other specified parts of digestive tract; Z98.51 Tubal ligation status; Z90.11 Acquired absence of right breast and nipple; Z98.41 Cataract extraction status, right eye; Z98.42 Cataract extraction status, left eye; Z87.2 Personal history of diseases of the skin and subcutaneous tissue; Z95.0 Presence of cardiac pacemaker; Z79.811 Long term (current) use of aromatase inhibitors; Z79.1 Long term (current) use of non-steroidal anti-inflammatories (NSAID); Z79.891 Long term (current) use of opiate analgesic; Z66 Do not resuscitate; Z83.3 Family history of diabetes mellitus; Z82.49 Family history of ischemic heart disease and other diseases of the circulatory system
CPT/HCPCS: 99285; 36415; 93005; 80053 ×2; 82728; 83605; 83615; 83735 ×2; 85025 ×2; 85610; 85730; 86140; 87040; 84145; 71045; G0378 ×2; U0003

== ENCOUNTER 2020-10-17 08:21 | Inpatient (IN) | payer MEDICARE, OTHER ==
[2020-10-17] MEDS ORDERED: SODIUM CHLORIDE 0.9% 1,000 ML IV STA (08:41)
--- NOTE | 2020-10-17 08:42 | ED ---
Recheck HPI - General Chief Complaint: GI Bleed Stated Complaint: abn labs Time Seen by Provider: 10/17/20 08:41 Source: patient, RN notes reviewed, old records reviewed Mode of arrival: EMS Limitations: no limitations - History of Present Illness Initial Comments: This is an 85-year-old female DF she presents today for evaluation of weakness persistent weakness with known GI bleed history with known anemia. Patient herself has really no complaints aside from being hungry. Patient outpatient hemoglobin that was in the fives. Patient is having dark stools. No vomiting. No abdominal pain. Patient is without significant complaint MD Complaint: abnormal lab -: unknown Returns Today for: Called Because of Abnormal Lab/Test, other (Patient will need blood transfusion) Symptoms Since Prior Visit: no new symptoms (Persistent weakness) Context: called for abnormal lab result Associated Symptoms: shortness of breath, malaise Treatments Prior to Arrival: other (none) - Related Data Home Medications Medication Instructions Recorded Confirmed Aspirin [Adult Low Dose Aspirin EC] 81 mg PO DAILY@1700 10/06/17 03/20/20 Apixaban [Eliquis] 2.5 mg PO BID@0800,1700 06/26/18 03/20/20 Ascorbic Acid [Vitamin C] 500 mg PO DAILY@1200 06/26/18 03/20/20 Cyanocobalamin (Vitamin B-12) 2,500 mcg PO DAILY@1200 06/26/18 03/20/20 [Vitamin B-12] Acetaminophen Tab [Tylenol] 650 mg PO BID@0800,1700 07/18/18 03/20/20 amLODIPine [Norvasc] 5 mg PO DAILY@1200 07/18/18 03/20/20 bisacodyL [Dulcolax] 10 mg RECTAL DAILY PRN 07/18/18 03/20/20 Cholecalciferol (Vitamin D3) 2,000 unit PO DAILY@0800 09/14/19 03/20/20 [Vitamin D3] Clobetasol Propionate [Temovate 1 applic TOPICAL BID 09/14/19 03/20/20 0.05% Cream] Guaifenesin/Dextromethorphan 10 ml PO Q6H PRN 09/14/19 03/20/20 [guaiFENesin DM] Insulin Aspart [NovoLOG] 9 units SQ AC-BRKFST@0700 09/14/19 03/20/20 Insulin Aspart [NovoLOG] 10 units SQ AC-LUNCH@1100 09/14/19 03/20/20 Insulin Aspart [NovoLOG] 12 units SQ AC-SUPPER@1630 09/14/19 03/20/20 Insulin Detemir (Levemir) [Levemir] 26 unit SQ HS@2130 09/14/19 03/20/20 Ipratropium-Albuterol Nebulize 3 ml INHALATION RT-QID PRN 09/14/19 03/20/20 [Duoneb 0.5 mg-3 mg/3 ml Soln] Magnesium Hydroxide [Milk of 7,200 mg PO DAILY PRN 09/14/19 03/20/20 Magnesia Concentrate] Naproxen Sodium [Aleve] 220 mg PO Q12H PRN 09/14/19 03/20/20 carvediloL [Coreg] 6.25 mg PO BID@0800,1700 09/14/19 03/20/20 Acetaminophen Suppository [Tylenol 650 mg RECTAL Q4H PRN 03/20/20 03/20/20 Suppository] Bumetanide [BUMEX] 2 mg PO BID@0800,1700 03/20/20 03/20/20 Hyoscyamine Sulfate [Levsin] 0.125 - 0.25 mg PO Q4H PRN 03/20/20 03/20/20 Morphine Sulfate [Morphine Sulfate 20 mg PO Q3H PRN 03/20/20 03/20/20 Oral Soln Conc (20 MG/ML)] Na Phos,M-B/Na Phos,Di-Ba [Fleet 133 ml RECTAL DAILY PRN 03/20/20 03/20/20 Adult] Oxybutynin Xl [Ditropan XL] 5 mg PO DAILY 03/20/20 03/20/20 Previous Rx's Medication Instructions Recorded Acetaminophen Tab [Tylenol] 650 mg PO Q6HR PRN tab 07/31/18 Fluticasone Nasal [place] [Flonase 2 spray EA NOSTRIL DAILY spr 09/18/19 Nasal [place]] Pantoprazole [Protonix] 40 mg PO AC-BRKFST tablet. 03/21/20 Allergies Allergy/AdvReac Type Severity Reaction Status Date / Time tuberculin, purified protein Allergy Unknown Verified 10/17/20 10:13 deriva tuberculin,PPD,multi-puncture Allergy Unknown Verified 10/17/20 10:13 codeine AdvReac Abdominal Verified 10/17/20 10:13 Pain Review of Systems ROS Statement: Those systems with pertinent positive or pertinent negative responses have been documented in the HPI. ROS Other: All systems not noted in ROS Statement are negative. Past Medical History Past Medical History: Atrial Flutter, Cancer, Diabetes Mellitus, Deep Vein Thrombosis (DVT), Eye Disorder, Hyperlipidemia, Hypertension, Memory Impairment, Renal Disease Additional Past Medical History / Comment(s): hx. rt breast cancer-2014 has mets to spine(sx and radiation tx and currently reciving hormone blockers, metastasis to spine-gets tx.hx of anemia requiring blood transfusion, DVT leg years ago, uses walker, bone CA-sees dr hu, kidney stones(sx), uti's/urosepsis/bacteremia,ad foot fx-no sx just casted. 2016 fall/rhabomyolos is/akf. family stated pt has kidney disease but refused to seek tx per specilaist" History of Any Multi-Drug Resistant Organisms: None Reported Date of last positivie culture/infection: 09/14/19 MDRO Source:: urine ESBL Past Surgical History: Breast Surgery, Cholecystectomy, Heart Catheterization, Tubal Ligation Additional Past Surgical History / Comment(s): right mastectomy, cataracts removed, excision of lesion rt cheek, steroid inj in past for heel spur, lithotripsy Past Anesthesia/Blood Transfusion Reactions: No Reported Reaction Additional Past Anesthesia/Blood Transfusion Reaction / Comment(s): Pt has received blood in past without reaction. Type of Cardiac Device: Permanent Pacemaker Device Placement Date:: 2017 Past Psychological History: No Psychological Hx Reported Smoking Status: Never smoker Past Alcohol Use History: None Reported Past Drug Use History: None Reported - Past Family History Mother Family Medical History: Diabetes Mellitus Father Family Medical History: Congestive Heart Failure (CHF) General Exam Limitations: no limitations General appearance: alert, in no apparent distress, lethargic Head exam: Present: atraumatic, normocephalic, normal inspection Eye exam: Present: normal appearance, PERRL, EOMI. Absent: scleral icterus, conjunctival injection, periorbital swelling ENT exam: Present: normal exam, mucous membranes moist Neck exam: Present: normal inspection. Absent: tenderness, meningismus, lymphadenopathy Respiratory exam: Present: normal lung sounds bilaterally. Absent: respiratory distress, wheezes, rales, rhonchi, stridor Cardiovascular Exam: Present: regular rate, normal rhythm, normal heart sounds. Absent: systolic murmur, diastolic murmur, rubs, gallop, clicks GI/Abdominal exam: Present: soft, normal bowel sounds. Absent: distended, tenderness, guarding, rebound, rigid Extremities exam: Present: normal inspection, full ROM, normal capillary refill. Absent: tenderness, pedal edema, joint swelling, calf tenderness Back exam: Present: normal inspection Neurological exam: Present: alert, oriented X3, CN II-XII intact Psychiatric exam: Present: normal affect, normal mood Skin exam: Present: warm, dry, intact, normal color. Absent: rash Course Vital Signs 10/17/20 08:26 Temperature 98 F Pulse Rate 96 Respiratory 16 Rate Blood Pressure 113/98 O2 Sat by Pulse 100 Oximetry - Reevaluation(s) Reevaluation #1: 10/17/20 10:14 Medical record is reviewed Reevaluation #2: 10/17/20 10:14 No change in symptoms here in the ER patient feels very fatigued and tired - Consultations Consultation #1: spoke w Dr Stu crawford for admission prefers ICU Medical Decision Making - Medical Decision Making 85 female DF for evaluation patient sent in for abnormal lab values patient has positive GI bleed significant anemia. We'll admit for transfusion and cardiopulmonary support - Lab Data Result diagrams: 10/17/20 08:42 10/17/20 08:42 Lab Results 10/17/20 10/17/20 10/17/20 Range/Units 08:42 08:42 08:42 WBC 13.4 H (3.8-10.6) k/uL RBC 2.11 L (3.80-5.40) m/uL Hgb 5.8 L* (11.4-16.0) gm/dL Hct 19.7 L* (34.0-46.0) % MCV 93.4 D (80.0-100.0) fL MCH 27.4 (25.0-35.0) pg MCHC 29.3 L (31.0-37.0) g/dL RDW 19.3 H (11.5-15.5) % Plt Count 429 (150-450) k/uL MPV 7.5 Neutrophils % 78 % Lymphocytes % 14 % Monocytes % 6 % Eosinophils % 1 % Basophils % 0 % Neutrophils # 10.5 H (1.3-7.7) k/uL Lymphocytes # 1.8 (1.0-4.8) k/uL Monocytes # 0.8 (0-1.0) k/uL Eosinophils # 0.1 (0-0.7) k/uL Basophils # 0.0 (0-0.2) k/uL Hypochromasia Marked Poikilocytosis Marked Anisocytosis Slight Macrocytosis Slight Sodium 133 L (137-145) mmol/L Potassium 4.0 (3.5-5.1) mmol/L Chloride 101 (98-107) mmol/L Carbon Dioxide 21 L (22-30) mmol/L Anion Gap 11 mmol/L BUN 66 H (7-17) mg/dL Creatinine 2.12 H (0.52-1.04) mg/dL Est GFR (CKD-EPI)AfAm 24 (>60 ml/min/1.73 sqM) Est GFR (CKD-EPI)NonAf 21 (>60 ml/min/1.73 sqM) Glucose 117 H (74-99) mg/dL Calcium 10.1 (8.4-10.2) mg/dL Magnesium (1.6-2.3) mg/dL Total Bilirubin 0.3 (0.2-1.3) mg/dL AST 15 (14-36) U/L ALT 9 (4-34) U/L Alkaline Phosphatase 87 (38-126) U/L Total Protein 5.0 L (6.3-8.2) g/dL Albumin 2.6 L (3.5-5.0) g/dL Blood Type AB Positive Blood Type Recheck AB Pos Bld Type Recheck Status No Antibody Screen NEGATIVE Crossmatch See Detail Spec Expiration Date 10/20/2020 - 234110/17/20 Range/Units 08:43 WBC (3.8-10.6) k/uL RBC (3.80-5.40) m/uL Hgb (11.4-16.0) gm/dL Hct (34.0-46.0) % MCV (80.0-100.0) fL MCH (25.0-35.0) pg MCHC (31.0-37.0) g/dL RDW (11.5-15.5) % Plt Count (150-450) k/uL MPV Neutrophils % % Lymphocytes % % Monocytes % % Eosinophils % % Basophils % % Neutrophils # (1.3-7.7) k/uL Lymphocytes # (1.0-4.8) k/uL Monocytes # (0-1.0) k/uL Eosinophils # (0-0.7) k/uL Basophils # (0-0.2) k/uL Hypochromasia Poikilocytosis Anisocytosis Macrocytosis Sodium (137-145) mmol/L Potassium (3.5-5.1) mmol/L Chloride (98-107) mmol/L Carbon Dioxide (22-30) mmol/L Anion Gap mmol/L BUN (7-17) mg/dL Creatinine (0.52-1.04) mg/dL Est GFR (CKD-EPI)AfAm (>60 ml/min/1.73 sqM) Est GFR (CKD-EPI)NonAf (>60 ml/min/1.73 sqM) Glucose (74-99) mg/dL Calcium (8.4-10.2) mg/dL Magnesium 2.4 H (1.6-2.3) mg/dL Total Bilirubin (0.2-1.3) mg/dL AST (14-36) U/L ALT (4-34) U/L Alkaline Phosphatase (38-126) U/L Total Protein (6.3-8.2) g/dL Albumin (3.5-5.0) g/dL Blood Type Blood Type Recheck Bld Type Recheck Status Antibody Screen Crossmatch Spec Expiration Date Disposition Clinical Impression: ARF (acute renal failure), Weakness, Anemia, GI bleed Disposition: ADMITTED IP TO THIS HOSP Condition: Undetermined Is patient prescribed a controlled substance at d/c from ED?: No Referrals: Syeda Peraza MD [Primary Care Provider] - 1-2 days
[2020-10-17 09:01] LABS: Anisocytosis Slight; Basophils % (A) 0 %; Eosinophils # (A) 0.1 k/uL (0-0.7); Eosinophils % (A) 1 %; Hypochromasia Marked; Lymphocytes # (A) 1.8 k/uL (1.0-4.8); Lymphocytes % (A) 14 %; MCH 27.4 pg (25.0-35.0); MCHC 29.3 g/dL (31.0-37.0); Macrocytosis Slight; Mean Platelet Volume 7.5; Monocytes # (A) 0.8 k/uL (0-1.0); Monocytes % (A) 6 %; Neutrophils # (A) 10.5 k/uL (1.3-7.7); Neutrophils % (A) 78 %; Platelet Count 429 k/uL (150-450); Poikilocytosis Marked; RBC 2.11 m/uL (3.80-5.40); RDW 19.3 % (11.5-15.5); WBC 13.4 k/uL (3.8-10.6)
[2020-10-17 09:16] LABS: Albumin 2.6 g/dL (3.5-5.0); Calcium 10.1 mg/dL (8.4-10.2); Total Bilirubin 0.3 mg/dL (0.2-1.3)
[2020-10-17 09:18] LABS: HCT 19.7 % (34.0-46.0); HGB 5.8 gm/dL (11.4-16.0); MCV 93.4 fL (80.0-100.0)
[2020-10-17] MEDS ORDERED: NALOXONE 0.4 MG/ML 1 ML VIAL IV PRN (10:09)
[2020-10-17] MEDS ORDERED: ACETAMINOPHEN TAB 325 MG TAB PO PRN (10:09)
[2020-10-17] MEDS ORDERED: ONDANSETRON 4 MG/2 ML VIAL IVP PRN (10:09)
[2020-10-17 10:17] LABS: Prothrombin Time 10.9 sec (9.0-12.0)
[2020-10-17 12:10] LABS: Glucose,Whole Blood 178 mg/dL (75-99)
[2020-10-17] MEDS ORDERED: IPRATROPIUM-ALBUTEROL 3 ML NEB INHALATION PRN (14:30)
--- NOTE | 2020-10-17 15:09 | P.HPIM ---
History of Present Illness H&P Date: 10/17/20 Chief Complaint: Acute lower GI bleed. Emy is a very pleasant 85 year old female pt of mine with a previous medical history significant for diabetes mellitus type 2, hyperlipidemia, hypertension,History of chronic kidney disease stage III, DVT, chronic atrial fibrillation with bradycardia status post permanent pacemaker implantation on eliquis, chronic diastolic heart failure with known EF of 55-60% with mild LVH. history of breast cancer She had a palpable right breast mass which she first noticed in early 2011 but did not seek medical attention for it until it became significantly larger, November 2013 she had mammograms which revealed a large suspicious mass in the left breast, biopsy confirmed invasive carcinoma. 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 Staging PET scan done on 12/14/13 revealed diffuse skeletal metastasis, no visceral disease. She started arimidex in December 2013. She had a thoracic spine MRI 01/27/14 which revealed multiple soft tissue masses at thoracic spine. Completed XRT to T spine on 02/28/14. Was monthly IVPB zometa for bone mets, this was eventually switched to SQ xgeva. Treatment f/u bone scan 11/24/14 revealed improvement in her bone metastasis. She fell in November 2015, CT brain was negative for metastatic disease, CT of neck revealed stable bone lesions. CT CAP and bone scan on 12/18/15 revealed no evidence of disease progression. F/U scans 10/24/16 and 11/06/17 have both re vealed stable disease subsequently she had disease progression while she was at [facility] and she was placed in hospice care for sometimes and eventually was recently discharged from hospice as the patient was doing fine up until recently when she developed to have a significant bright red blood per rectum initially patient refused to go to the hospital and her hemoglobin did drop to 6.0 then after discussing that with the family the recommended for the patient to have 2 units of packed red blood cell at [facility] and her hemoglobin went back up again she was taken off her Eliquis as well as antiplatelet therapy, patient hemoglobin recovers however I received a call today from the nursing staff at [facility] stating that the patient hemoglobin dropped again to 5.8 after she had a bloody dark stool yesterday and today and they contacted the family her son wanted to be evaluated in the hospital to find the source of the bleed at this time she is currently off Eliquis and antiplatelet, she was admitted to the intensive care unit, GI consultation for upper and lower endoscopy. Review of Systems Constitutional: Reports anorexia, Reports chronic pain, Reports fatigue, Reports lethargy, Reports malaise, Reports weakness, Reports weight loss Eyes: bilateral blurred vision, denies bulging eye, denies decreased vision Ears: bilateral: decreased hearing Ears, nose, mouth and throat: Denies dysphagia, Denies neck lump, Denies sore throat Cardiovascular: Reports decreased exercise tolerance, Reports dyspnea on exertion, Reports high blood pressure, Reports irregular heart beat, Reports leg edema, Reports lightheadedness, Reports rapid heart beat, Reports shortness of breath, Denies chest pain, Denies syncope Respiratory: Reports sleep apnea, Denies congestion, Denies cough, Denies cough with sputum, Denies hemoptysis, Denies home oxygen, Denies snoring, Denies wheezing Gastrointestinal: Reports BRBPR, Reports change in bowel habits, Reports hematochezia, Reports loss of appetite, Reports melena, Reports nausea, Denies abdominal pain, Denies belching, Denies bloating, Denies coffee ground emesis, Denies constipation, Denies diarrhea, Denies dyspepsia, Denies early satiety, Denies excessive gas, Denies heartburn, Denies hematemesis, Denies indigestion, Denies jaundice, Denies lactose intolerance, Denies vomiting Genitourinary: Denies dysuria, Denies hematuria Menstruation: Reports postmenopausal Musculoskeletal: Reports atrophy, Reports frequent falls, Reports gait dysfunction, Reports loss of height, Reports low back pain Musculoskeletal: bilateral: ankle swelling, hip stiffness, knee stiffness, knee swelling, shoulder pain, shoulder stiffness, absent: elbow pain, elbow stiffness, elbow swelling, foot pain, foot stiffness, foot swelling, hand pain, hand stiffness, hand swelling, hip pain, hip swelling, knee pain, shoulder swelling, wrist pain, wrist stiffness, wrist swelling Integumentary: Reports brittle nails, Reports change in hair/nails, Reports color changes Neurological: Reports balance difficulties, Reports change in mentation, Reports gait dysfunction, Reports headaches, Reports memory loss, Reports sensory deficit, Reports weakness Psychiatric: Reports anxiety, Reports depression, Reports memory loss, Denies paranoia, Denies sadness/tearfulness, Denies sleep disturbances, Denies suicidal ideation Endocrine: Denies fatigue, Denies weight change Past Medical History Past Medical History: Atrial Flutter, Cancer, Diabetes Mellitus, Deep Vein Thrombosis (DVT), Eye Disorder, Hyperlipidemia, Hypertension, Memory Impairment, Renal Disease Additional Past Medical History / Comment(s): hx. rt breast cancer-2013 has mets to spine(sx and radiation tx and currently reciving hormone blockers, metastasis to spine-gets tx.hx of anemia requiring blood transfusion, DVT leg years ago, uses walker, bone CA-sees dr hu, kidney stones(sx), uti's/urosepsis/bacteremia,ad foot fx-no sx just casted. 2016 fall/rhabomyolosis/akf. family stated pt has kidney disease but refused to seek tx per specilaist" History of Any Multi-Drug Resistant Organisms: None Reported Date of last positivie culture/infection: 09/14/19 MDRO Source:: urine ESBL Past Surgical History: Breast Surgery, Cholecystectomy, Heart Catheterization, Tubal Ligation Additional Past Surgical History / Comment(s): right mastectomy, cataracts removed, excision of lesion rt cheek, steroid inj in past for heel spur, lithotripsy Past Anesthesia/Blood Transfusion Reactions: No Reported Reaction Additional Past Anesthesia/Blood Transfusion Reaction / Comment(s): Pt has received blood in past without reaction. Type of Cardiac Device: Permanent Pacemaker Device Placement Date:: 2017 Past Psychological History: No Psychological Hx Reported Smoking Status: Never smoker Past Alcohol Use History: None Reported Past Drug Use History: None Reported - Past Family History Mother Family Medical History: Diabetes Mellitus Father Family Medical History: Congestive Heart Failure (CHF) Medications and Allergies Home Medications Medication Instructions Recorded Confirmed Type Aspirin [Adult Low Dose Aspirin EC] 81 mg PO DAILY@1700 10/06/17 10/17/20 History Apixaban [Eliquis] 2.5 mg PO BID@0800,1700 06/26/18 10/17/20 History Ascorbic Acid [Vitamin C] 500 mg PO DAILY@1200 06/26/18 10/17/20 History Cyanocobalamin (Vitamin B-12) 2,500 mcg PO DAILY@1200 06/26/18 10/17/20 History [Vitamin B-12] Acetaminophen Tab [Tylenol] 650 mg PO BID@0800,1700 07/18/18 10/17/20 History bisacodyL [Dulcolax] 10 mg RECTAL DAILY PRN 07/18/18 10/17/20 History Acetaminophen Tab [Tylenol] 650 mg PO Q6HR PRN tab 07/31/18 10/17/20 Rx Cholecalciferol (Vitamin D3) 2,000 unit PO DAILY@0800 09/14/19 10/17/20 History [Vitamin D3] Clobetasol Propionate [Temovate 1 applic TOPICAL BID 09/14/19 10/17/20 History 0.05% Cream] Guaifenesin/Dextromethorphan 10 ml PO Q6H PRN 09/14/19 10/17/20 History [guaiFENesin DM] Insulin Aspart [NovoLOG] 9 units SQ AC-BRKFST@0700 09/14/19 10/17/20 History Insulin Aspart [NovoLOG] 10 units SQ AC-LUNCH@1100 09/14/19 10/17/20 History Insulin Aspart [NovoLOG] 12 units SQ AC-SUPPER@1630 09/14/19 10/17/20 History Insulin Detemir (Levemir) [Levemir] 30 unit SQ HS@2130 09/14/19 10/17/20 History Ipratropium-Albuterol Nebulize 3 ml INHALATION RT-Q6H PRN 09/14/19 10/17/20 History [Duoneb 0.5 mg-3 mg/3 ml Soln] Magnesium Hydroxide [Milk of 7,200 mg PO DAILY PRN 09/14/19 10/17/20 History Magnesia Concentrate] Naproxen Sodium [Aleve] 220 mg PO Q12H PRN 09/14/19 10/17/20 History carvediloL [Coreg] 6.25 mg PO BID@0800,1700 09/14/19 10/17/20 History Fluticasone Nasal [place] [Flonase 2 spray EA NOSTRIL DAILY spr 09/18/19 10/17/20 Rx Nasal [place]] Acetaminophen Suppository [Tylenol 650 mg RECTAL Q4H PRN 03/20/20 10/17/20 History Suppository] Na Phos,M-B/Na Phos,Di-Ba [Fleet 133 ml RECTAL DAILY PRN 03/20/20 10/17/20 History Adult] Albuterol Sulfate [Ventolin HFA] 1 - 2 puff INHALATION RT-Q6H PRN 10/17/20 10/17/20 History Atorvastatin [Lipitor] 10 mg PO HS@2100 10/17/20 10/17/20 History Ferrous Sulfate [Feosol] 325 mg PO BID@0800,1700 10/17/20 10/17/20 History Mag Hydrox/Al Hydrox/Simeth 30 ml PO Q6H PRN 10/17/20 10/17/20 History [Maalox] Menthol-Zinc Oxide Oint 1 applic TOPICAL BID 10/17/20 10/17/20 History [Calmoseptine Oint] Pantoprazole [Protonix] 40 mg PO DAILY@0800 10/17/20 10/17/20 History Sennosides/Docusate Sodium [Senna 1 tab PO BID@0800,1700 10/17/20 10/17/20 History Plus 8.6-50 mg Tablet] Torsemide [Demadex] 20 mg PO BID@0800,1700 10/17/20 10/17/20 History Allergies Allergy/AdvReac Type Severity Reaction Status Date / Time tuberculin, purified protein Allergy Unknown Verified 10/17/20 10:13 deriva tuberculin,PPD,multi-puncture Allergy Unknown Verified 10/17/20 10:13 codeine AdvReac Abdominal Verified 10/17/20 10:13 Pain Physical Exam Vitals: Vital Signs Temp Pulse Resp BP Pulse Ox 10/17/20 14:01 98.3 F 68 16 103/58 98 10/17/20 13:31 98.3 F 82 16 127/38 10/17/20 13:21 98.1 F 60 14 110/40 96 10/17/20 13:11 97.1 F L 60 14 119/42 97 10/17/20 13:10 60 20 99 10/17/20 13:00 60 14 102/38 96 10/17/20 12:50 68 13 96 10/17/20 12:40 60 17 97 10/17/20 12:30 59 L 22 98 10/17/20 12:20 60 17 128/48 97 10/17/20 12:10 97.4 F L 62 14 98 10/17/20 11:40 98.6 F 64 18 106/40 100 10/17/20 11:10 98.5 F 60 16 102/38 99 10/17/20 11:00 97.8 F 61 16 90/43 10/17/20 08:26 98 F 96 16 113/98 100 Intake and Output 10/16/20 10/17/20 10/17/20 22:59 06:59 14:59 Intake Total 410 Output Total 0 Balance 410 Intake: IV 100 Sodium Chloride 0.9% 1, 100 000 ml @ 100 mls/hr IV . Q10H STA Rx#:[id number] Blood Product 310 Rc As-1 Unit 310 [id number] Rc As-1 Unit 0 [id number] Output: Urine 0 Other: # Voids 0 Weight 99.79 kg Physical examination: HEENT: Head is atraumatic, normocephalic, pupils were equal round reactive to light and recommendation, extraocular muscle movement were intact, mucous membranes of the mouth are moist. Neck: Supple, no JVD, no primary. Chest: Decreased breath sounds at the bases, few rhonchi, no expiratory wheezes, no chest wall tenderness, no intercostal retractions. Heart: First heart sound is depressed, second heart sound is normal, there is systolic ejection murmur 2/6 located at the left sternal border, there is permanent pacemaker located in the left upper precordium. Abdomen: Soft, nontender, nondistended, positive bowel sounds. Extremities: There is +2 edema no calf tenderness, chronic skin changes due to stasis dermatitis, dorsalis pedis +1 bilaterally. Neurologic examination: Patient is awake alert and oriented 2, creatinine nerves III-12 appear grossly intact, muscle power 4 out of 5 in upper e xtremities and 3 out of 5 bilateral lower extremities, deep tendon or flexes were depressed bilaterally. Results CBC & Chem 7: 10/18/20 05:04 10/18/20 05:04 Labs: Abnormal Lab Results - Last 24 Hours (Table) 10/17/20 10/17/20 10/17/20 Range/Units 08:42 08:42 08:42 WBC 13.4 H (3.8-10.6) k/uL RBC 2.11 L (3.80-5.40) m/uL Hgb 5.8 L* (11.4-16.0) gm/dL Hct 19.7 L* (34.0-46.0) % MCHC 29.3 L (31.0-37.0) g/dL RDW 19.3 H (11.5-15.5) % Neutrophils # 10.5 H (1.3-7.7) k/uL APTT (22.0-30.0) sec Sodium 133 L (137-145) mmol/L Carbon Dioxide 21 L (22-30) mmol/L BUN 66 H (7-17) mg/dL Creatinine 2.12 H (0.52-1.04) mg/dL Glucose 117 H (74-99) mg/dL POC Glucose (mg/dL) (75-99) mg/dL Magnesium (1.6-2.3) mg/dL Total Protein 5.0 L (6.3-8.2) g/dL Albumin 2.6 L (3.5-5.0) g/dL Crossmatch See Detail 10/17/20 10/17/20 10/17/20 Range/Units 08:43 09:52 12:09 WBC (3.8-10.6) k/uL RBC (3.80-5.40) m/uL Hgb (11.4-16.0) gm/dL Hct (34.0-46.0) % MCHC (31.0-37.0) g/dL RDW (11.5-15.5) % Neutrophils # (1.3-7.7) k/uL APTT 18.0 L (22.0-30.0) sec Sodium (137-145) mmol/L Carbon Dioxide (22-30) mmol/L BUN (7-17) mg/dL Creatinine (0.52-1.04) mg/dL Glucose (74-99) mg/dL POC Glucose (mg/dL) 178 H (75-99) mg/dL Magnesium 2.4 H (1.6-2.3) mg/dL Total Protein (6.3-8.2) g/dL Albumin (3.5-5.0) g/dL Crossmatch Thrombosis Risk Factor Assmnt - DVT/VTE Prophylaxis DVT/VTE Prophylaxis: Mechanical Prophylaxis ordered Assessment and Plan Assessment: Assessment and plan: 1. Upper GI bleed likely related to peptic ulcer disease however the possibility of lower GI bleed could not entirely be excluded. Start the patient on Protonix 40 mg IV push every 12 hours., continue to monitor CBC every 6 hours for the next 24 hours, continue nothing by mouth status, continue with GI consultation, for EGD and colonoscopy per family request. 2. Hypertension and hypertensive cardiovascular disease. we will hold her oral medication at this point in time 3. Hyperlipidemia. Continue patient on low-cholesterol diet. 4. Diabetes mellitus type 2. Decrease Levemir to 20 units at bedtime along with a sliding scale insulin as the patient was not eating. 5. Overactive bladder.discontinue oxybutynin as the patient has Alfredo catheter in place. 6. Proximal atrial fibrillation/flutter post permanent pacemaker placement continue patient on Coreg 6.25 mg orally twice every , hold Eliquis and aspirin for now. 7. Chronic diastolic heart failure. Continue patient on Coreg, hold Bumex. 8. History of breast cancer with bone metastatic disease. Appears to be at baseline. 9. Constipation. patient would have the MiraLAX prep for colonoscopy. 10. DVT prophylaxis. bilateral knee-high DANIELITO hose. 11. GI prophylaxis. Continue Protonix 40 mg IV push every 12 hours. 12. Chronic kidney disease stage III. Appears to be back to baseline. 13. DO NOT RESUSCITATE. 14. Admit patient is a length of stay 2 midnights.
--- NOTE | 2020-10-17 17:08 | P.CNPUL ---
History of Present Illness Consult date: 10/17/20 Chief complaint: GI bleeding History of present illness: This is an 85-year-old female patient [facility] because of a [facility] bleed. The patient has noted some melanotic stool this been going on for the past few weeks. Infection was transfused recently on outpatient basis for low hemoglobin and she was [facility]. Note that the patient was having melanotic stools throughout the week week. No nausea. No vomiting. No abdominal pain. No hematemesis. She did drop her hemoglobin down to 5.8 and for that reason the patient got transferred to [facility] with the patient got transfused with 2 additional packed RBCs. Note that the patient is on Eliquis for chronic cardiac arrhythmias/atrial fibrillation. She has multiple other medical positive comorbidities. She is currently hemodynamically stable. She is awake and alert and she is following commands and answering questions. No 70 peptic ulcer disease pain no 7 liver cirrhosis. Correlation profile is essentially within normal limits. As mentioned, she has been on Eliquis and she has been also taking aspirin and Naprosyn are necessary basis which could've contributed to her bleeding.. Colonoscopy is not known. Review of Systems Constitutional: Reports anorexia, Reports chronic pain, Reports fatigue, Reports lethargy, Reports malaise, Reports weakness, Reports weight loss Eyes: bilateral blurred vision, denies bulging eye, denies decreased vision Ears: bilateral: decreased hearing Ears, nose, mouth and throat: Denies dysphagia, Denies neck lump, Denies sore throat Cardiovascular: Reports decreased exercise tolerance, Reports dyspnea on exertion, Reports high blood pressure, Reports irregular heart beat, Reports leg edema, Reports lightheadedness, Reports rapid heart beat, Reports shortness of breath, Denies chest pain, Denies syncope Respiratory: Reports sleep apnea, Denies congestion, Denies cough, Denies cough with sputum, Denies hemoptysis, Denies home oxygen, Denies snoring, Denies wheezing Gastrointestinal: Reports BRBPR, Reports change in bowel habits, Reports he matochezia, Reports loss of appetite, Reports melena, Reports nausea, Denies abdominal pain, Denies belching, Denies bloating, Denies coffee ground emesis, Denies constipation, Denies diarrhea, Denies dyspepsia, Denies early satiety, Denies excessive gas, Denies heartburn, Denies hematemesis, Denies indigestion, Denies jaundice, Denies lactose intolerance, Denies vomiting Genitourinary: Denies dysuria, Denies hematuria Menstruation: Reports postmenopausal Musculoskeletal: Reports atrophy, Reports frequent falls, Reports gait dysfunction, Reports loss of height, Reports low back pain Musculoskeletal: bilateral: ankle swelling, hip stiffness, knee stiffness, knee swelling, shoulder pain, shoulder stiffness, absent: elbow pain, elbow stiffness, elbow swelling, foot pain, foot stiffness, foot swelling, hand pain, hand stiffness, hand swelling, hip pain, hip swelling, knee pain, shoulder swel ling, wrist pain, wrist stiffness, wrist swelling Integumentary: Reports brittle nails, Reports change in hair/nails, Reports color changes Neurological: Reports balance difficulties, Reports change in mentation, Reports gait dysfunction, Reports headaches, Reports memory loss, Reports sensory deficit, Reports weakness Psychiatric: Reports anxiety, Reports depression, Reports memory loss, Denies paranoia, Denies sadness/tearfulness, Denies sleep disturbances, Denies suicidal ideation Endocrine: Denies fatigue, Denies weight change Past Medical History Past Medical History: Atrial Flutter, Cancer, Diabetes Mellitus, Deep Vein Thrombosis (DVT), Eye Disorder, Hyperlipidemia, Hypertension, Memory Impairment, Renal Disease Additional Past Medical History / Comment(s): Metastatic breast cancer diagnosis in 2013. The patient has massive the spine. She also has history of diabetes mellitus type 2, hypertension, hyperlipidemia, chronic stage III kidney disease, chronic atrial fibrillation, remote history of DVT, history of pacemaker insertion for episodes of bradycardia, chronic diastolic heart failure with a preserved LV function of ejection fraction of 55-60%, previous history of involvement into hospice with subsequent removal from hospice program., History of kidney stones, history of gram-negative urine checked infections, poor functional status and history of falls. History of Any Multi-Drug Resistant Organisms: None Reported Date of last positivie culture/infection: 09/14/19 MDRO Source:: urine ESBL Past Surgical History: Breast Surgery, Cholecystectomy, Heart Catheterization, Tubal Ligation Additional Past Surgical History / Comment(s): right mastectomy, cataracts removed, excision of lesion rt cheek, steroid inj in past for heel spur, lithotripsy Past Anesthesia/Blood Transfusion Reactions: No Reported Reaction Additional Past Anesthesia/Blood Transfusion Reaction / Comment(s): Pt has received blood in past without reaction. Type of Cardiac Device: Permanent Pacemaker Device Placement Date:: 2017 Past Psychological History: No Psychological Hx Reported Smoking Status: Never smoker Past Alcohol Use History: None Reported Past Drug Use History: None Reported - Past Family History Mother Family Medical History: Diabetes Mellitus Father Family Medical History: Congestive Heart Failure (CHF) Medications and Allergies Home Medications Medication Instructions Recorded Confirmed Type Aspirin [Adult Low Dose Aspirin EC] 81 mg PO DAILY@1700 10/06/17 10/17/20 History Apixaban [Eliquis] 2.5 mg PO BID@0800,1700 06/26/18 10/17/20 History Ascorbic Acid [Vitamin C] 500 mg PO DAILY@1200 06/26/18 10/17/20 History Cyanocobalamin (Vitamin B-12) 2,500 mcg PO DAILY@1200 06/26/18 10/17/20 History [Vitamin B-12] Acetaminophen Tab [Tylenol] 650 mg PO BID@0800,1700 07/18/18 10/17/20 History bisacodyL [Dulcolax] 10 mg RECTAL DAILY PRN 07/18/18 10/17/20 History Acetaminophen Tab [Tylenol] 650 mg PO Q6HR PRN tab 07/31/18 10/17/20 Rx Cholecalciferol (Vitamin D3) 2,000 unit PO DAILY@0800 09/14/19 10/17/20 History [Vitamin D3] Clobetasol Propionate [Temovate 1 applic TOPICAL BID 09/14/19 10/17/20 History 0.05% Cream] Guaifenesin/Dextromethorphan 10 ml PO Q6H PRN 09/14/19 10/17/20 History [guaiFENesin DM] Insulin Aspart [NovoLOG] 9 units SQ AC-BRKFST@0700 09/14/19 10/17/20 History Insulin Aspart [NovoLOG] 10 units SQ AC-LUNCH@1100 09/14/19 10/17/20 History Insulin Aspart [NovoLOG] 12 units SQ AC-SUPPER@1630 09/14/19 10/17/20 History Insulin Detemir (Levemir) [Levemir] 30 unit SQ HS@2130 09/14/19 10/17/20 History Ipratropium-Albuterol Nebulize 3 ml INHALATION RT-Q6H PRN 09/14/19 10/17/20 History [Duoneb 0.5 mg-3 mg/3 ml Soln] Magnesium Hydroxide [Milk of 7,200 mg PO DAILY PRN 09/14/19 10/17/20 History Magnesia Concentrate] Naproxen Sodium [Aleve] 220 mg PO Q12H PRN 09/14/19 10/17/20 History carvediloL [Coreg] 6.25 mg PO BID@0800,1700 09/14/19 10/17/20 History Fluticasone Nasal [place] [Flonase 2 spray EA NOSTRIL DAILY spr 09/18/19 10/17/20 Rx Nasal [place]] Acetaminophen Suppository [Tylenol 650 mg RECTAL Q4H PRN 03/20/20 10/17/20 History Suppository] Na Phos,M-B/Na Phos,Di-Ba [Fleet 133 ml RECTAL DAILY PRN 03/20/20 10/17/20 History Adult] Albuterol Sulfate [Ventolin HFA] 1 - 2 puff INHALATION RT-Q6H PRN 10/17/20 10/17/20 History Atorvastatin [Lipitor] 10 mg PO HS@2100 10/17/20 10/17/20 History Ferrous Sulfate [Feosol] 325 mg PO BID@0800,1700 10/17/20 10/17/20 History Mag Hydrox/Al Hydrox/Simeth 30 ml PO Q6H PRN 10/17/20 10/17/20 History [Maalox] Menthol-Zinc Oxide Oint 1 applic TOPICAL BID 10/17/20 10/17/20 History [Calmoseptine Oint] Pantoprazole [Protonix] 40 mg PO DAILY@0800 10/17/20 10/17/20 History Sennosides/Docusate Sodium [Senna 1 tab PO BID@0800,1700 10/17/20 10/17/20 History Plus 8.6-50 mg Tablet] Torsemide [Demadex] 20 mg PO BID@0800,1700 10/17/20 10/17/20 History Allergies Allergy/AdvReac Type Severity Reaction Status Date / Time tuberculin, purified protein Allergy Unknown Verified 10/17/20 10:13 deriva tuberculin,PPD,multi-puncture Allergy Unknown Verified 10/17/20 10:13 codeine AdvReac Abdominal Verified 10/17/20 10:13 Pain Physical Exam Vitals: Vital Signs Temp Pulse Resp BP Pulse Ox 10/17/20 16:00 97.7 F 63 14 109/44 97 10/17/20 15:50 97.7 F 61 14 109/44 97 10/17/20 15:30 80 14 80/41 97 10/17/20 15:00 65 17 103/58 97 10/17/20 14:30 59 L 13 96 10/17/20 14:01 98.3 F 68 16 103/58 98 10/17/20 14:00 68 11 L 127/38 97 10/17/20 13:31 98.3 F 82 16 127/38 10/17/20 13:30 62 18 99 10/17/20 13:21 98.1 F 60 14 110/40 96 10/17/20 13:11 97.1 F L 60 14 119/42 97 10/17/20 13:10 60 20 99 10/17/20 13:00 60 14 102/38 96 10/17/20 12:50 68 13 96 10/17/20 12:40 60 17 97 10/17/20 12:30 59 L 22 98 10/17/20 12:20 60 17 128/48 97 10/17/20 12:10 97.4 F L 62 14 98 10/17/20 11:40 98.6 F 64 18 106/40 100 10/17/20 11:10 98.5 F 60 16 102/38 99 10/17/20 11:00 97.8 F 61 16 90/43 10/17/20 08:26 98 F 96 16 113/98 100 Intake and Output 10/17/20 10/17/20 10/17/20 06:59 14:59 22:59 Intake Total 410 410 Output Total 0 0 Balance 410 410 Intake: IV 100 100 Sodium Chloride 0.9% 1, 100 100 000 ml @ 100 mls/hr IV . Q10H STA Rx#:[id number] Blood Product 310 310 Rc As-1 Unit 310 [id number] Rc As-1 Unit 0 310 [id number] Output: Urine 0 0 Other: # Voids 0 0 Weight 99.79 kg Awake and alert and communicating nonacute distress Head exam was generally normal. There was no scleral icterus or corneal arcus. Mucous membranes were moist. Neck was supple and without jugular venous distension, thyromegaly, or carotid bruits. Carotids were easily palpable bilaterally. There was no adenopathy. Lungs were clear to auscultation and percussion, and with normal diaphragmatic excursion. No wheezes or rales were noted. Heart sounds are regular and paced and the patient is a systolic ejection murmur grade 2/6 heard throughout the precordium. The patient also has a pacemaker pocket over the left anterior precordium. Abdominal exam revealed normal bowel sounds. The abdomen was soft, non-tender, and without masses, organomegaly, or appreciable enlargement of the abdominal aorta. Extremities are weak and the patient has chronic edema +2 in lower extremities bilaterally. Chronic status dermatitis. Neurologically the patient is a component of dementia. The patient has global motor weakness in lower extremity is bilaterally. Cranial nerves are intact. She is alert and oriented 2. Results - Laboratory Findings CBC and BMP: 10/17/20 08:42 10/17/20 08:42 PT/INR, D-dimer PT 10.9 sec (9.0-12.0) 10/17/20 09:52 INR 1.0 (<1.2) 10/17/20 09:52 Abnormal lab findings: Abnormal Labs 10/17/20 10/17/20 10/17/20 08:42 08:42 08:42 WBC 13.4 H RBC 2.11 L Hgb 5.8 L* Hct 19.7 L* MCHC 29.3 L RDW 19.3 H Neutrophils # 10.5 H APTT Sodium 133 L Carbon Dioxide 21 L BUN 66 H Creatinine 2.12 H Glucose 117 H POC Glucose (mg/dL) Magnesium Total Protein 5.0 L Albumin 2.6 L Crossmatch See Detail 10/17/20 10/17/20 10/17/20 08:43 09:52 12:09 WBC RBC Hgb Hct MCHC RDW Neutrophils # APTT 18.0 L Sodium Carbon Dioxide BUN Creatinine Glucose POC Glucose (mg/dL) 178 H Magnesium 2.4 H Total Protein Albumin Crossmatch Assessment and Plan Plan: 1 acute GI bleeding. The patient mentioned that she was seeing melanotic dark stools. Nevertheless there is a mention of a bright red blood per rectum. As such, if possible the patient is having either upper or lower GI bleed although lower GI bleed is suspected also. The patient is also on Eliquis. The patient was taking nonsteroidal anti-inflammatory medication and aspirin. The patient came in with a hemoglobin of 5.8 and the patient got transfused with packed RBCs. Hemodynamically stable at this point in time. 2 metastatic breast cancer, with skeletal metastases 3 chronic stage III kidney disease 4 diabetes mellitus type 2 5 hypertension 6 hyperlipidemia 7 history of bradycardia arrhythmias requiring a pacemaker insertion. The patient has history of paroxysmal A. fib fibrillation and she has been maintained on Coreg and long-term and to coagulation with Eliquis 8 chronic diastolic heart failure with preserved LV function 9 chronic lower extremity edema 10 chronic debility and the patient is not a laboratory. The patient is a [facility] resident Plan Stop Eliquis, aspirin and nonsteroidal anti-inflammatory medications Monitor hemoglobin Already transfusion total of 2 units of packed RBCs Resume coreg and hold diuretics in the setting of an acute GI bleed Resume Levemir insulin and the patient is currently nothing by mouth. Levemir insulin is used on the 20 units daily at bedtime along with sliding scale coverage GI consultation We'll continue to follow. Possible transfer out of the intensive care unit by evening specially if things remain stable.
[2020-10-17 17:44] LABS: Anisocytosis Moderate; Basophils % (A) 0 %; Eosinophils # (A) 0.2 k/uL (0-0.7); Eosinophils % (A) 1 %; HCT 26.5 % (34.0-46.0); Hypochromasia Marked; Lymphocytes # (A) 1.7 k/uL (1.0-4.8); Lymphocytes % (A) 13 %; MCH 27.8 pg (25.0-35.0); MCHC 32.2 g/dL (31.0-37.0); Mean Platelet Volume 7.1; Monocytes # (A) 0.8 k/uL (0-1.0); Monocytes % (A) 7 %; Neutrophils # (A) 9.7 k/uL (1.3-7.7); Neutrophils % (A) 77 %; Platelet Count 328 k/uL (150-450); Poikilocytosis Marked; RBC 3.07 m/uL (3.80-5.40); RDW 20.8 % (11.5-15.5); WBC 12.6 k/uL (3.8-10.6)
[2020-10-17 17:56] LABS: HGB 8.5 gm/dL (11.4-16.0); MCV 86.3 fL (80.0-100.0)
[2020-10-17] MEDS: carvediloL 6.25 MG TAB PO SCH (18:37)
[2020-10-17 19:26] LABS: Glucose,Whole Blood 137 mg/dL (75-99)
[2020-10-17] MEDS: ATORVASTATIN 10 MG TAB PO SCH (21:18)
[2020-10-17] MEDS: PANTOPRAZOLE 40 MG/10 ML VIAL IVP SCH (21:20)
[2020-10-17] MEDS: INSULIN DETEMIR (LEVEMIR) 100 UNIT/ML SYR SQ SCH (23:41)
[2020-10-17 23:51] LABS: Glucose,Whole Blood 121 mg/dL (75-99)
[2020-10-18 05:54] LABS: Anisocytosis Moderate; Basophils # (A) 0.1 k/uL (0-0.2); Basophils % (A) 1 %; Eosinophils # (A) 0.2 k/uL (0-0.7); Eosinophils % (A) 2 %; HCT 23.9 % (34.0-46.0); HGB 7.7 gm/dL (11.4-16.0); Hypochromasia Marked; Lymphocytes # (A) 1.3 k/uL (1.0-4.8); Lymphocytes % (A) 14 %; MCH 27.9 pg (25.0-35.0); MCHC 32.3 g/dL (31.0-37.0); MCV 86.5 fL (80.0-100.0); Mean Platelet Volume 7.3; Microcytosis Slight; Monocytes # (A) 0.6 k/uL (0-1.0); Monocytes % (A) 6 %; Neutrophils % (A) 76 %; Platelet Count 289 k/uL (150-450); Poikilocytosis Marked; RBC 2.77 m/uL (3.80-5.40); RDW 21.3 % (11.5-15.5); WBC 9.3 k/uL (3.8-10.6)
[2020-10-18 06:16] LABS: ALT <6 U/L (4-34); AST 16 U/L (14-36); African American GFR (CKD) 35 (>60 ml/min/1.73 sqM); Alkaline Phosphatase 73 U/L (38-126); Anion Gap 7 mmol/L; Blood Urea Nitrogen 54 mg/dL (7-17); Calcium 9.2 mg/dL (8.4-10.2); Carbon Dioxide 20 mmol/L (22-30); Chloride 107 mmol/L (98-107); Glucose 100 mg/dL (74-99); Magnesium 2.4 mg/dL (1.6-2.3); Non-African American GFR(CKD) 31 (>60 ml/min/1.73 sqM); Potassium 3.8 mmol/L (3.5-5.1); Sodium 134 mmol/L (137-145); Total Bilirubin 0.6 mg/dL (0.2-1.3); Total Protein 4.1 g/dL (6.3-8.2)
[2020-10-18 06:49] LABS: Glucose,Whole Blood 128 mg/dL (75-99)
--- NOTE | 2020-10-18 07:53 | P.PN ---
Subjective Progress Note Date: 10/18/20 This is an 85-year-old female patient was transferred over from the [facility]-way because of a GI bleed. The patient has noted some melanotic stool this been going on for the past few weeks. Infection was transfused recently on outpatient basis for low hemoglobin and she was transferred back to the half-way. Note that the patient was having melanotic stools throughout the week last week. No nausea. No vomiting. No abdominal pain. No hematemesis. She did drop her hemoglobin down to 5.8 and for that reason the patient got transferred to [facility] with the patient got transfused with 2 additional packed RBCs. Note that the patient is on Eliquis for chronic cardiac arrhythmias/atrial fibrillation. She has multiple other medical positive comorbidities. She is currently hemodynamically stable. She is awake and alert and she is following commands and answering questions. No peptic ulcer disease pain no liver cirrhosis. Correlation profile is essentially within normal limits. As mentioned, she has been on Eliquis and she has been also taking aspirin and Naprosyn are necessary basis which could've contributed to her bleeding.. Colonoscopy is not known. On today's evaluation, the patient is resting comfortably in bed. I'm seeing her in follow-up on 10/18/2020. Note that the patient came in for a low hemoglobin of 5.8. She received a total of 2 units of packed RBC and hemoglobin today is at 7.7. We have not witnessed any GI bleeding since yesterday. We have taken this patient off Eliquis and she is also off aspirin. Note that she was taken nonsteroidal anti-inflammatory medications at home. She is nothing by mouth and the patient has not been seen by gastroenterology at. She is currently on IV fluid running at 0.9 at the rate of 100 mL an hour. No signs of any fluid overload. She is getting some swelling in lower extremities bilaterally. Further bouts of bleeding. No other issues for now. Mentally, she is able to answer questions appropriately although she is slow in answering questions. She has extensive number of comorbidities for now. His were all mentioned in my history and physical. Objective - Vital Signs Vital signs: Vital Signs Temp 97.6 F 10/18/20 05:00 Pulse 60 10/18/20 05:00 Resp 12 10/18/20 05:00 BP 111/51 10/18/20 05:00 Pulse Ox 96 10/18/20 05:00 Intake & Output 10/17/20 10/18/20 10/18/20 18:59 06:59 18:59 Intake Total 1020 1000 Output Total 0 800 Balance 1020 200 Weight 99.79 kg 95.7 kg Intake: IV 400 1000 Sodium Chloride 0.9% 1, 400 1000 000 ml @ 100 mls/hr IV . Q10H STA Rx#:[id number] Blood Product 620 Rc As-1 Unit 310 [id number] Rc As-1 Unit 310 [id number] Output: Urine 0 800 Other: # Voids 1 0 - Exam Awake and alert and communicating nonacute distress Head exam was generally normal. There was no scleral icterus or corneal arcus. Mucous membranes were moist. Neck was supple and without jugular venous distension, thyromegaly, or carotid bruits. Carotids were easily palpable bilaterally. There was no adenopathy. Lungs were clear to auscultation and percussion, and with normal diaphragmatic excursion. No wheezes or rales were noted. Heart sounds are regular and paced and the patient is a systolic ejection murmur grade 2/6 heard throughout the precordium. The patient also has a pacemaker pocket over the left anterior precordium. Abdominal exam revealed normal bowel sounds. The abdomen was soft, non-tender, and without masses, organomegaly, or appreciable enlargement of the abdominal aorta. Extremities are weak and the patient has chronic edema +2 in lower extremities bilaterally. Chronic status dermatitis. Neurologically the patient is a component of dementia. The patient has global motor weakness in lower extremity is bilaterally. Cranial nerves are intact. She is alert and oriented 2. - Labs CBC & Chem 7: 10/18/20 05:04 10/18/20 05:04 Labs: Abnormal Lab Results - Last 24 Hours (Table) 10/17/20 10/17/20 10/17/20 Range/Units 08:42 08:42 08:42 WBC 13.4 H (3.8-10.6) k/uL RBC 2.11 L (3.80-5.40) m/uL Hgb 5.8 L* (11.4-16.0) gm/dL Hct 19.7 L* (34.0-46.0) % MCHC 29.3 L (31.0-37.0) g/dL RDW 19.3 H (11.5-15.5) % Neutrophils # 10.5 H (1.3-7.7) k/uL APTT (22.0-30.0) sec Sodium 133 L (137-145) mmol/L Carbon Dioxide 21 L (22-30) mmol/L BUN 66 H (7-17) mg/dL Creatinine 2.12 H (0.52-1.04) mg/dL Glucose 117 H (74-99) mg/dL POC Glucose (mg/dL) (75-99) mg/dL Magnesium (1.6-2.3) mg/dL Total Protein 5.0 L (6.3-8.2) g/dL Albumin 2.6 L (3.5-5.0) g/dL Crossmatch See Detail 10/17/20 10/17/20 10/17/20 Range/Units 08:43 09:52 12:09 WBC (3.8-10.6) k/uL RBC (3.80-5.40) m/uL Hgb (11.4-16.0) gm/dL Hct (34.0-46.0) % MCHC (31.0-37.0) g/dL RDW (11.5-15.5) % Neutrophils # (1.3-7.7) k/uL APTT 18.0 L (22.0-30.0) sec Sodium (137-145) mmol/L Carbon Dioxide (22-30) mmol/L BUN (7-17) mg/dL Creatinine (0.52-1.04) mg/dL Glucose (74-99) mg/dL POC Glucose (mg/dL) 178 H (75-99) mg/dL Magnesium 2.4 H (1.6-2.3) mg/dL Total Protein (6.3-8.2) g/dL Albumin (3.5-5.0) g/dL Crossmatch 10/17/20 10/17/20 10/17/20 Range/Units 17:35 19:24 23:39 WBC 12.6 H (3.8-10.6) k/uL RBC 3.07 L (3.80-5.40) m/uL Hgb 8.5 L D (11.4-16.0) gm/dL Hct 26.5 L (34.0-46.0) % MCHC (31.0-37.0) g/dL RDW 20.8 H (11.5-15.5) % Neutrophils # 9.7 H (1.3-7.7) k/uL APTT (22.0-30.0) sec Sodium (137-145) mmol/L Carbon Dioxide (22-30) mmol/L BUN (7-17) mg/dL Creatinine (0.52-1.04) mg/dL Glucose (74-99) mg/dL POC Glucose (mg/dL) 137 H 121 H (75-99) mg/dL Magnesium (1.6-2.3) mg/dL Total Protein (6.3-8.2) g/dL Albumin (3.5-5.0) g/dL Crossmatch 10/18/20 10/18/20 10/18/20 Range/Units 05:04 05:04 06:37 WBC (3.8-10.6) k/uL RBC 2.77 L (3.80-5.40) m/uL Hgb 7.7 L (11.4-16.0) gm/dL Hct 23.9 L (34.0-46.0) % MCHC (31.0-37.0) g/dL RDW 21.3 H (11.5-15.5) % Neutrophils # (1.3-7.7) k/uL APTT (22.0-30.0) sec Sodium 134 L (137-145) mmol/L Carbon Dioxide 20 L (22-30) mmol/L BUN 54 H (7-17) mg/dL Creatinine 1.56 H (0.52-1.04) mg/dL Glucose 100 H (74-99) mg/dL POC Glucose (mg/dL) 128 H (75-99) mg/dL Magnesium 2.4 H (1.6-2.3) mg/dL Total Protein 4.1 L (6.3-8.2) g/dL Albumin 2.0 L (3.5-5.0) g/dL Crossmatch Assessment and Plan Plan: 1 acute GI bleeding. The patient mentioned that she was seeing melanotic dark stools. Nevertheless there is a mention of a bright red blood per rectum. As such, if possible the patient is having either upper or lower GI bleed although lower GI bleed is suspected also. The patient is also on Eliquis. The patient was taking nonsteroidal anti-inflammatory medication and aspirin. The patient came in with a hemoglobin of 5.8 and the patient got transfused with packed RBCs. Hemodynamically stable at this point in time. On 10/18/2020, the patient is hemodynamically stable with a hemoglobin level of 7.7. Awaiting a GI consultation. She's been extremely stable and the patient can easily be transferred to a medical floor for now. Complete her GI workup regarding anemia and GI bleed. The patient remains nothing by mouth for now. She is on normal saline at the rate of 100 mL an hour. 2 metastatic breast cancer, with skeletal metastases 3 chronic stage III kidney disease monitor the renal function continues to improve as the patient had a component of an acute on top of chronic kidney disease in the creatinine is down to 1.5 4 diabetes mellitus type 2, Levemir which was held overnight as the patient is currently nothing by mouth were relying on sliding scale coverage 5 hypertension 6 hyperlipidemia 7 history of bradycardia arrhythmias requiring a pacemaker insertion. The patient has history of paroxysmal A. fib fibrillation and she has been maintained on Coreg and long-term and to coagulation with Eliquis 8 chronic diastolic heart failure with preserved LV function 9 chronic lower extremity edema 10 chronic debility The patient is a [facility] resident Plan Stop Eliquis, aspirin and nonsteroidal anti-inflammatory medications Monitor hemoglobin Already transfusion total of 2 units of packed RBCs, current hemoglobin is at 7.7 , and the patient is chronically anemic Resume coreg and hold diuretics in the setting of an acute GI bleed Resume Levemir insulin and the patient is currently nothing by mouth. Levemir insulin is used on the 20 units daily at bedtime along with sliding scale coverage, and the Levemir was held yesterday as the patient continues to be no thing by mouth GI consultation Check iron studies and supplemented with IV iron if needed transfer out of the intensive care unit today DNR/DNI
[2020-10-18] MEDS ORDERED: PANTOPRAZOLE 40 MG/10 ML VIAL IV SCH (09:00)
[2020-10-18] MEDS: carvediloL 6.25 MG TAB PO SCH ×2 (09:30→17:09)
[2020-10-18] MEDS: PANTOPRAZOLE 40 MG/10 ML VIAL IVP SCH ×2 (09:51→21:23)
[2020-10-18 11:34] LABS: % Iron Saturation 5.33 (12.00-45.00)
--- NOTE | 2020-10-18 11:35 | P.CONS ---
History of Present Illness - Reason for Consult Consult date: 10/18/20 Anemia Requesting physician: Syeda Peraza - Chief Complaint Anemia, melena - History of Present Illness 85-year-old female with multiple medical comorbidities including hyperlipidemia, diabetes mellitus, hypertension, chronic kidney disease, prior DVT, atrial fibrillation on anticoagulation therapy with Eliquis, congestive heart failure and a history of breast cancer who was transferred from her long-term for evaluation of GI bleed. Of note history is been taken on review of the medical record, discussion with the nursing staff and in discussion with the patient, although memory impairment has limited history she is able to provide. The patient has not been having any hematemesis, nausea, vomiting or reports of abdominal pain however bowel movement over the past week have been noted to be dark. No reported history of peptic ulcer disease. The patient does take regular NSAID therapy for osteoarthritis. On presentation to the hospital she was found to have hemoglobin of 5.8 subsequently found to be 8.5 after transfusion of PRBCs and currently not 7.7. She's had no further melanotic stool or evidence of GI bleeding. There is questions about possible prior bright red blood per rectum but currently she is being evaluated for melanotic stool. She is in the ICU with no acute complaints. The patient is quite agitated and asking for food. She does not believe she is ever had endoscopic evaluation in the past. Review of Systems REVIEW OF SYSTEMS: CONSTITUTIONAL: Denies any fevers, chills, weight change or fatigue. CARDIOVASCULAR: Denies any chest pain, palpitations high or low blood pressures, history of atrial fibrillation and pacemaker placement. RESPIRATORY: Denies any shortness of breath, hemoptysis or cough. GENITOURINARY: No dysuria or hematuria. MUSCULOSKELETAL: No weakness reported. SKIN: Denies any new rashes or lesions, jaundice or pallor. PSYCHIATRIC: Denies any depression or anxiety. NEUROLOGY: Denies headache, denies any new focal deficits, patient does have memory impairment at baseline. EARS/NOSE/THROAT: No recent hearing change, congestion, nasal discharge or sore throat. EYES: No pain in eyes, discharge or change in vision. GASTROINTESTINAL: As per HPI. Past Medical History Past Medical History: Atrial Flutter, Cancer, Diabetes Mellitus, Deep Vein Thrombosis (DVT), Eye Disorder, Hyperlipidemia, Hypertension, Memory Impairment, Renal Disease Additional Past Medical History / Comment(s): Metastatic breast cancer diagnosis in 2013. The patient has massive the spine. She also has history of diabetes mellitus type 2, hypertension, hyperlipidemia, chronic stage III kidney disease, chronic atrial fibrillation, remote history of DVT, history of pacemaker insertion for episodes of bradycardia, chronic diastolic heart failure with a preserved LV function of ejection fraction of 55-60%, previous history of involvement into hospice with subsequent removal from hospice program., History of kidney stones, history of gram-negative urine checked infections, poor functional status and history of falls. History of Any Multi-Drug Resistant Organisms: None Reported Year Discovered:: 09/14/19 MDRO Source:: urine ESBL Past Surgical History: Breast Surgery, Cholecystectomy, Heart Catheterization, Tubal Ligation Additional Past Surgical History / Comment(s): right mastectomy, cataracts removed, excision of lesion rt cheek, steroid inj in past for heel spur, lithotripsy Past Anesthesia/Blood Transfusion Reactions: No Reported Reaction Additional Past Anesthesia/Blood Transfusion Reaction / Comm: Pt has received blood in past without reaction. Type of Cardiac Device: Permanent Pacemaker Device Placement Date:: 2017 Past Psychological History: No Psychological Hx Reported Smoking Status: Never smoker Past Alcohol Use History: None Reported Past Drug Use History: None Reported - Past Family History Mother Family Medical History: Diabetes Mellitus Father Family Medical History: Congestive Heart Failure (CHF) Medications and Allergies Home Medications Medication Instructions Recorded Confirmed Type Aspirin [Adult Low Dose Aspirin EC] 81 mg PO DAILY@1700 10/06/17 10/17/20 History Apixaban [Eliquis] 2.5 mg PO BID@0800,1700 06/26/18 10/17/20 History Ascorbic Acid [Vitamin C] 500 mg PO DAILY@1200 06/26/18 10/17/20 History Cyanocobalamin (Vitamin B-12) 2,500 mcg PO DAILY@1200 06/26/18 10/17/20 History [Vitamin B-12] Acetaminophen Tab [Tylenol] 650 mg PO BID@0800,1700 07/18/18 10/17/20 History bisacodyL [Dulcolax] 10 mg RECTAL DAILY PRN 07/18/18 10/17/20 History Acetaminophen Tab [Tylenol] 650 mg PO Q6HR PRN tab 07/31/18 10/17/20 Rx Cholecalciferol (Vitamin D3) 2,000 unit PO DAILY@0800 09/14/19 10/17/20 History [Vitamin D3] Clobetasol Propionate [Temovate 1 applic TOPICAL BID 09/14/19 10/17/20 History 0.05% Cream] Guaifenesin/Dextromethorphan 10 ml PO Q6H PRN 09/14/19 10/17/20 History [guaiFENesin DM] Insulin Aspart [NovoLOG] 9 units SQ AC-BRKFST@0700 09/14/19 10/17/20 History Insulin Aspart [NovoLOG] 10 units SQ AC-LUNCH@1100 09/14/19 10/17/20 History Insulin Aspart [NovoLOG] 12 units SQ AC-SUPPER@1630 09/14/19 10/17/20 History Insulin Detemir (Levemir) [Levemir] 30 unit SQ HS@2130 09/14/19 10/17/20 History Ipratropium-Albuterol Nebulize 3 ml INHALATION RT-Q6H PRN 09/14/19 10/17/20 History [Duoneb 0.5 mg-3 mg/3 ml Soln] Magnesium Hydroxide [Milk of 7,200 mg PO DAILY PRN 09/14/19 10/17/20 History Magnesia Concentrate] Naproxen Sodium [Aleve] 220 mg PO Q12H PRN 09/14/19 10/17/20 History carvediloL [Coreg] 6.25 mg PO BID@0800,1700 09/14/19 10/17/20 History Fluticasone Nasal [place] [Flonase 2 spray EA NOSTRIL DAILY spr 09/18/19 10/17/20 Rx Nasal [place]] Acetaminophen Suppository [Tylenol 650 mg RECTAL Q4H PRN 03/20/20 10/17/20 History Suppository] Na Phos,M-B/Na Phos,Di-Ba [Fleet 133 ml RECTAL DAILY PRN 03/20/20 10/17/20 History Adult] Albuterol Sulfate [Ventolin HFA] 1 - 2 puff INHALATION RT-Q6H PRN 10/17/20 10/17/20 History Atorvastatin [Lipitor] 10 mg PO HS@2100 10/17/20 10/17/20 History Ferrous Sulfate [Feosol] 325 mg PO BID@0800,1700 10/17/20 10/17/20 History Mag Hydrox/Al Hydrox/Simeth 30 ml PO Q6H PRN 10/17/20 10/17/20 History [Maalox] Menthol-Zinc Oxide Oint 1 applic TOPICAL BID 10/17/20 10/17/20 History [Calmoseptine Oint] Pantoprazole [Protonix] 40 mg PO DAILY@0800 10/17/20 10/17/20 History Sennosides/Docusate Sodium [Senna 1 tab PO BID@0800,1700 10/17/20 10/17/20 History Plus 8.6-50 mg Tablet] Torsemide [Demadex] 20 mg PO BID@0800,1700 10/17/20 10/17/20 History Allergies Allergy/AdvReac Type Severity Reaction Status Date / Time tuberculin, purified protein Allergy Unknown Verified 10/17/20 10:13 deriva tuberculin,PPD,multi-puncture Allergy Unknown Verified 10/17/20 10:13 codeine AdvReac Abdominal Verified 10/17/20 10:13 Pain Physical Exam Vitals: Vital Signs Temp Pulse Pulse Resp BP BP Pulse Ox 10/18/20 08:00 97.4 F L 60 14 105/35 10/18/20 05:00 97.6 F 60 12 111/51 96 10/17/20 23:43 20 10/17/20 20:00 97.7 F 62 20 118/43 98 10/17/20 19:00 71 14 100/55 97 10/17/20 18:00 67 14 120/80 94 L 10/17/20 17:00 61 15 94/42 93 L 10/17/20 16:00 97.7 F 63 14 109/44 97 10/17/20 15:50 97.7 F 61 14 109/44 97 10/17/20 15:30 80 14 80/41 97 10/17/20 15:00 65 17 103/58 97 10/17/20 14:30 59 L 13 96 10/17/20 14:01 98.3 F 68 16 103/58 98 10/17/20 14:00 68 11 L 127/38 97 10/17/20 13:31 98.3 F 82 16 127/38 10/17/20 13:30 62 18 99 10/17/20 13:21 98.1 F 60 14 110/40 96 10/17/20 13:11 97.1 F L 60 14 119/42 97 10/17/20 13:10 60 20 99 10/17/20 13:00 60 14 102/38 96 10/17/20 12:50 68 13 96 10/17/20 12:40 60 17 97 10/17/20 12:30 59 L 22 98 10/17/20 12:20 60 17 128/48 97 10/17/20 12:10 97.4 F L 62 14 98 10/17/20 11:40 98.6 F 64 18 106/40 100 10/17/20 11:10 98.5 F 60 16 102/38 99 10/17/20 11:00 97.8 F 61 16 90/43 Intake and Output 10/17/20 10/18/20 10/18/20 22:59 06:59 14:59 Intake Total 1010 600 Output Total 300 500 Balance 710 100 Intake: IV 700 600 Sodium Chloride 0.9% 1, 700 600 000 ml @ 100 mls/hr IV . Q10H STA Rx#:[id number] Blood Product 310 Rc As-1 Unit 310 [id number] Output: Urine 300 500 Other: # Voids 0 Weight 95.7 kg On physical examination, patient appears comfortable in no apparent distress. HEAD: Normocephalic, atraumatic. EYES: No scleral icterus. No conjunctival injection. MOUTH: No lesions, tongue midline. NECK: Trachea midline, no gross abnormalities. CHEST: Decreased air entry in all lung calvert. HEART: S1-S2 appreciated. ABDOMEN: Soft, obese, nontender to palpation. Bowel sounds are positive. No org anomegaly. No guarding or rigidity. EXTREMITIES: No pedal edema. SKIN: No rashes, no jaundice. NEUROLOGIC: Alert and oriented to person. No focal deficits. Results CBC & Chem 7: 10/18/20 05:04 10/18/20 05:04 Labs: Abnormal Lab Results - Last 24 Hours (Table) 10/17/20 10/17/20 10/17/20 Range/Units 08:42 09:52 12:09 WBC (3.8-10.6) k/uL RBC (3.80-5.40) m/uL Hgb (11.4-16.0) gm/dL Hct (34.0-46.0) % RDW (11.5-15.5) % Neutrophils # (1.3-7.7) k/uL APTT 18.0 L (22.0-30.0) sec Sodium (137-145) mmol/L Carbon Dioxide (22-30) mmol/L BUN (7-17) mg/dL Creatinine (0.52-1.04) mg/dL Glucose (74-99) mg/dL POC Glucose (mg/dL) 178 H (75-99) mg/dL Magnesium (1.6-2.3) mg/dL Total Protein (6.3-8.2) g/dL Albumin (3.5-5.0) g/dL Crossmatch See Detail 10/17/20 10/17/20 10/17/20 Range/Units 17:35 19:24 23:39 WBC 12.6 H (3.8-10.6) k/uL RBC 3.07 L (3.80-5.40) m/uL Hgb 8.5 L D (11.4-16.0) gm/dL Hct 26.5 L (34.0-46.0) % RDW 20.8 H (11.5-15.5) % Neutrophils # 9.7 H (1.3-7.7) k/uL APTT (22.0-30.0) sec Sodium (137-145) mmol/L Carbon Dioxide (22-30) mmol/L BUN (7-17) mg/dL Creatinine (0.52-1.04) mg/dL Glucose (74-99) mg/dL POC Glucose (mg/dL) 137 H 121 H (75-99) mg/dL Magnesium (1.6-2.3) mg/dL Total Protein (6.3-8.2) g/dL Albumin (3.5-5.0) g/dL Crossmatch 10/18/20 10/18/20 10/18/20 Range/Units 05:04 05:04 06:37 WBC (3.8-10.6) k/uL RBC 2.77 L (3.80-5.40) m/uL Hgb 7.7 L (11.4-16.0) gm/dL Hct 23.9 L (34.0-46.0) % RDW 21.3 H (11.5-15.5) % Neutrophils # (1.3-7.7) k/uL APTT (22.0-30.0) sec Sodium 134 L (137-145) mmol/L Carbon Dioxide 20 L (22-30) mmol/L BUN 54 H (7-17) mg/dL Creatinine 1.56 H (0.52-1.04) mg/dL Glucose 100 H (74-99) mg/dL POC Glucose (mg/dL) 128 H (75-99) mg/dL Magnesium 2.4 H (1.6-2.3) mg/dL Total Protein 4.1 L (6.3-8.2) g/dL Albumin 2.0 L (3.5-5.0) g/dL Crossmatch Chest x-ray: report reviewed Assessment and Plan (1) Melena Narrative/Plan: 85-year-old female with multiple medical comorbidities including atrial fibrillation on Eliquis therapy who presented to the hospital for evaluation of melena and anemia. Patient had been having dark colored stool with no coffee- ground emesis, nausea and vomiting, or bright red blood per rectum, however ther e been reports of blood per rectum in the past. She denies any abdominal pain. No known history of peptic ulcer disease and the patient does not believe she had endoscopic evaluation in the past. She is on NSAID therapy for osteoarthritis. Unclear etiology, differential includes peptic ulcer disease, gastritis, esophagitis or other etiology. Current Visit: Yes Status: Acute Code(s): K92.1 - MELENA SNOMED Code(s): 0787678 (2) Anemia associated with acute blood loss Current Visit: Yes Status: Acute Code(s): D62 - ACUTE POSTHEMORRHAGIC ANEMIA SNOMED Code(s): 254714614 (3) GI bleed Current Visit: Yes Status: Acute Code(s): K92.2 - GASTROINTESTINAL HEMORRHAGE, UNSPECIFIED SNOMED Code(s): 49546425 Plan: Supportive care Clear liquid diet Nothing by mouth after midnight Continue to monitor hemoglobin and hematocrit and transfuse as needed Protonix 40 mg twice daily Hold Eliquis therapy for now Plans for EGD in the setting of melena to rule out upper GI bleed, at this time patient is fairly agitated and is not felt that she would be able to prep for colonoscopy, in addition given her extensive cardiac history of colonoscopy is desired in the future would request cardiac clearance Iron studies have been ordered by the ICU team and are pending Thank you for allowing us to participate in the care of the patient we will continue to follow
[2020-10-18 11:43] LABS: Glucose,Whole Blood 169 mg/dL (75-99)
--- NOTE | 2020-10-18 12:39 | P.PN ---
Subjective Progress Note Date: 10/18/20 Emy is a very pleasant 85 year old female pt of mine with a previous medical history significant for diabetes mellitus type 2, hyperlipidemia, hypertension,History of chronic kidney disease stage III, DVT, chronic atrial fibrillation with bradycardia status post permanent pacemaker implantation on eliquis, chronic diastolic heart failure with known EF of 55-60% with mild LVH. history of breast cancer She had a palpable right breast mass which she first noticed in early 2011 but did not seek medical attention for it until it became significantly larger, November 2013 she had mammograms which revealed a large suspicious mass in the left breast, biopsy confirmed invasive carcinoma. 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 Staging PET scan done on 12/14/13 revealed diffuse skeletal metastasis, no visceral disease. She started arimidex in December 2013. She had a thoracic spine MRI 01/27/14 which revealed multiple soft tissue masses at thoracic spine. Completed XRT to T spine on 02/28/14. Was monthly IVPB zometa for bone mets, this was eventually switched to SQ xgeva. Treatment f/u bone scan 11/24/14 revealed improvement in her bone metastasis. She fell in November 2015, CT brain was negative for metastatic disease, CT of neck revealed stable bone lesions. CT CAP and bone scan on 12/18/15 revealed no evidence of disease progression. F/U scans 10/24/16 and 11/06/17 have both revealed stable disease subsequently she had disease progression while she was at [facility] and she was placed in hospice care for sometimes and eventually was recently discharged from hospice as the patient was doing fine up until recently when she developed to have a significant bright red blood per rectum initially patient refused to go to the hospital and her hemoglobin did drop to 6.0 then after discussing that with the family the recommended for the patient to have 2 units of packed red blood cell at [facility] and her hemoglobin went back up again she was taken off her Eliquis as well as antiplatelet therapy, patient hemoglobin recovers however I received a call today from the nursing staff at [facility] stating that the patient hemoglobin dropped again to 5.8 after she had a bloody dark stool yesterday and today and they contacted the family her son wanted to be evaluated in the hospital to find the source of the bleed at this time she is currently off Eliquis and antiplatelet, she was admitted to the intensive care unit, GI consultation for upper and lower endoscopy. 10/18: Patient is quite agitated today she is not sure if she is wanted to go for EGD at this time, I extended the patient that she has to Stay on clear liquid di et if she decided to go for EGD tomorrow morning, ideally she should have EGD and colonoscopy however she would not want to go for colonoscopy at this stage, patient is quite upset she went to have oatmeal which I told her that she cannot have at this point due to her GI bleed patient has no chest pain, she has no shortness breath, she has no abdominal pain, nausea or vomiting she has no further bleeding today hemodynamic she stable she was moved out of ICU, she was seen in consultation by Dr. Tamez and she is scheduled for EGD tomorrow morning. Objective - Vital Signs Vital signs: Vital Signs Temp 97.4 F L 10/18/20 08:00 Pulse 70 10/18/20 11:33 Resp 16 10/18/20 11:33 BP 114/58 10/18/20 11:33 Pulse Ox 96 10/18/20 05:00 Intake & Output 10/17/20 10/18/20 10/18/20 18:59 06:59 18:59 Intake Total 1020 1000 Output Total 0 800 Balance 1020 200 Weight 99.79 kg 95.7 kg Intake: IV 400 1000 Sodium Chloride 0.9% 1, 400 1000 000 ml @ 100 mls/hr IV . Q10H STA Rx#:[id number] Blood Product 620 As-1 Unit 310 [id number] As-1 Unit 310 [id number] Output: Urine 0 800 Other: # Voids 1 0 - Exam Review of Systems Constitutional: Reports anorexia, Reports chronic pain, Reports fatigue, Reports lethargy, Reports malaise, Reports weakness, Reports weight loss Eyes: bilateral blurred vision, denies bulging eye, denies decreased vision Ears: bilateral: decreased hearing Ears, nose, mouth and throat: Denies dysphagia, Denies neck lump, Denies sore throat Cardiovascular: Reports decreased exercise tolerance, Reports dyspnea on exertion, Reports high blood pressure, Reports irregular heart beat, Reports leg edema, Reports lightheadedness, Reports rapid heart beat, Reports shortness of breath, Denies chest pain, Denies syncope Respiratory: Reports sleep apnea, Denies congestion, Denies cough, Denies cough with sputum, Denies hemoptysis, Denies home oxygen, Denies snoring, Denies wheez ing Gastrointestinal: Reports BRBPR, Reports change in bowel habits, Reports hematochezia, Reports loss of appetite, Reports melena, Reports nausea, Denies abdominal pain, Denies belching, Denies bloating, Denies coffee ground emesis, Denies constipation, Denies diarrhea, Denies dyspepsia, Denies early satiety, Denies excessive gas, Denies heartburn, Denies hematemesis, Denies indigestion, Denies jaundice, Denies lactose intolerance, Denies vomiting Genitourinary: Denies dysuria, Denies hematuria Menstruation: Reports postmenopausal Musculoskeletal: Reports atrophy, Reports frequent falls, Reports gait dysfunction, Reports loss of height, Reports low back pain Musculoskeletal: bilateral: ankle swelling, hip stiffness, knee stiffness, knee swelling, shoulder pain, shoulder stiffness, absent: elbow pain, elbow stiffness, elbow swelling, foot pain, foot stiffness, foot swelling, hand pain, hand stiffness, hand swelling, hip pain, hip swelling, knee pain, shoulder swelling, wrist pain, wrist stiffness, wrist swelling Integumentary: Reports brittle nails, Reports change in hair/nails, Reports color changes Neurological: Reports balance difficulties, Reports change in mentation, Reports gait dysfunction, Reports headaches, Reports memory loss, Reports sensory deficit, Reports weakness Psychiatric: Reports anxiety, Reports depression, Reports memory loss, Denies paranoia, Denies sadness/tearfulness, Denies sleep disturbances, Denies suicidal ideation Endocrine: Denies fatigue, Denies weight change Physical examination: HEENT: Head is atraumatic, normocephalic, pupils were equal round reactive to light and recommendation, extraocular muscle movement were intact, mucous membranes of the mouth are moist. Neck: Supple, no JVD, no primary. Chest: Decreased breath sounds at the bases, few rhonchi, no expiratory wheezes, no chest wall tenderness, no intercostal retractions. Heart: First heart sound is depressed, second heart sound is normal, there is systolic ejection murmur 2/6 located at the left sternal border, there is permanent pacemaker located in the left upper precordium. Abdomen: Soft, nontender, nondistended, positive bowel sounds. Extremities: There is +2 edema no calf tenderness, chronic skin changes due to stasis dermatitis, dorsalis pedis +1 bilaterally. Neurologic examination: Patient is awake alert and oriented 2, creatinine nerves III-12 appear grossly intact, muscle power 4 out of 5 in upper extremities and 3 out of 5 bilateral lower extremities, deep tendon or flexes were depressed bilaterally. - Labs CBC & Chem 7: 10/18/20 05:04 10/18/20 05:04 Labs: Abnormal Lab Results - Last 24 Hours (Table) 10/17/20 10/17/20 10/17/20 Range/Units 08:42 12:09 17:35 WBC 12.6 H (3.8-10.6) k/uL RBC 3.07 L (3.80-5.40) m/uL Hgb 8.5 L D (11.4-16.0) gm/dL Hct 26.5 L (34.0-46.0) % RDW 20.8 H (11.5-15.5) % Neutrophils # 9.7 H (1.3-7.7) k/uL Sodium (137-145) mmol/L Carbon Dioxide (22-30) mmol/L BUN (7-17) mg/dL Creatinine (0.52-1.04) mg/dL Glucose (74-99) mg/dL POC Glucose (mg/dL) 178 H (75-99) mg/dL Magnesium (1.6-2.3) mg/dL Iron (50-170) ug/dL % Saturation (12.00-45.00) Total Protein (6.3-8.2) g/dL Albumin (3.5-5.0) g/dL Crossmatch See Detail 10/17/20 10/17/20 10/18/20 Range/Units 19:24 23:39 05:04 WBC (3.8-10.6) k/uL RBC 2.77 L (3.80-5.40) m/uL Hgb 7.7 L (11.4-16.0) gm/dL Hct 23.9 L (34.0-46.0) % RDW 21.3 H (11.5-15.5) % Neutrophils # (1.3-7.7) k/uL Sodium (137-145) mmol/L Carbon Dioxide (22-30) mmol/L BUN (7-17) mg/dL Creatinine (0.52-1.04) mg/dL Glucose (74-99) mg/dL POC Glucose (mg/dL) 137 H 121 H (75-99) mg/dL Magnesium (1.6-2.3) mg/dL Iron (50-170) ug/dL % Saturation (12.00-45.00) Total Protein (6.3-8.2) g/dL Albumin (3.5-5.0) g/dL Crossmatch 10/18/20 10/18/20 10/18/20 Range/Units 05:04 05:04 06:37 WBC (3.8-10.6) k/uL RBC (3.80-5.40) m/uL Hgb (11.4-16.0) gm/dL Hct (34.0-46.0) % RDW (11.5-15.5) % Neutrophils # (1.3-7.7) k/uL Sodium 134 L (137-145) mmol/L Carbon Dioxide 20 L (22-30) mmol/L BUN 54 H (7-17) mg/dL Creatinine 1.56 H (0.52-1.04) mg/dL Glucose 100 H (74-99) mg/dL POC Glucose (mg/dL) 128 H (75-99) mg/dL Magnesium 2.4 H (1.6-2.3) mg/dL Iron 13 L (50-170) ug/dL % Saturation 5.33 L (12.00-45.00) Total Protein 4.1 L (6.3-8.2) g/dL Albumin 2.0 L (3.5-5.0) g/dL Crossmatch 10/18/20 Range/Units 11:42 WBC (3.8-10.6) k/uL RBC (3.80-5.40) m/uL Hgb (11.4-16.0) gm/dL Hct (34.0-46.0) % RDW (11.5-15.5) % Neutrophils # (1.3-7.7) k/uL Sodium (137-145) mmol/L Carbon Dioxide (22-30) mmol/L BUN (7-17) mg/dL Creatinine (0.52-1.04) mg/dL Glucose (74-99) mg/dL POC Glucose (mg/dL) 169 H (75-99) mg/dL Magnesium (1.6-2.3) mg/dL Iron (50-170) ug/dL % Saturation (12.00-45.00) Total Protein (6.3-8.2) g/dL Albumin (3.5-5.0) g/dL Crossmatch Assessment and Plan Assessment: Assessment and plan: 1. Upper GI bleed GI bleed could be related to peptic ulcer disease however the possibility of with lower GI bleed could not be entirely excluded. the continue patient on Protonix 40 mg IV push every 12 hours., continue to monitor CBC every 6 hours for the next 24 hours, continue clear liquid diet, EGD tomorrow morning.. 2. Hypertension and hypertensive cardiovascular disease. we will continue with the carvedilol 6.25 mg orally twice every day. 3. Hyperlipidemia. Continue patient on low-cholesterol diet. 4. Diabetes mellitus type 2. Decrease Levemir to 20 units at bedtime along with a sliding scale insulin as the patient was not eating. 5. Overactive bladder.discontinue oxybutynin as the patient has Alfredo catheter in place. 6. Proximal atrial fibrillation/flutter post permanent pacemaker placement continue patient on Coreg 6.25 mg orally twice every , hold Eliquis and aspirin for now. 7. Chronic diastolic heart failure. Continue patient on Coreg, hold Bumex. 8. History of breast cancer with bone metastatic disease. Appears to be at [facility]. 9. Constipation. stable. 10. DVT prophylaxis. bilateral knee-high DANIELITO hose. 11. GI prophylaxis. Continue Protonix 40 mg IV push every 12 hours. 12. Chronic kidney disease stage III. Appears to be back to baseline. 13. DO NOT RESUSCITATE. 14. Disposition. Patient will be back tomorrow after EGD tomorrow.
[2020-10-18 16:53] LABS: Glucose,Whole Blood 390 mg/dL (75-99)
[2020-10-18 17:46] LABS: Anisocytosis Moderate; HGB 7.5 gm/dL (11.4-16.0); Hypochromasia Marked; MCH 29.1 pg (25.0-35.0); MCHC 32.8 g/dL (31.0-37.0); MCV 88.8 fL (80.0-100.0); Mean Platelet Volume 7.3; Platelet Count 296 k/uL (150-450); Poikilocytosis Marked; RBC 2.59 m/uL (3.80-5.40); RDW 21.2 % (11.5-15.5); WBC 10.3 k/uL (3.8-10.6)
[2020-10-18] MEDS: INSULIN ASPART (NovoLOG) 100 UNIT/ML VIAL SQ SCH ×2 (18:29→21:23)
[2020-10-18 21:00] LABS: Glucose,Whole Blood 261 mg/dL (75-99)
[2020-10-18] MEDS: INSULIN DETEMIR (LEVEMIR) 100 UNIT/ML SYR SQ SCH (21:23)
[2020-10-18] MEDS: ATORVASTATIN 10 MG TAB PO SCH (21:24)
[2020-10-19 01:41] LABS: Anisocytosis Moderate; HCT 22.1 % (34.0-46.0); HGB 7.1 gm/dL (11.4-16.0); Hypochromasia Marked; MCH 28.4 pg (25.0-35.0); MCV 88.7 fL (80.0-100.0); Mean Platelet Volume 7.3; Platelet Count 256 k/uL (150-450); Poikilocytosis Marked; RBC 2.49 m/uL (3.80-5.40); RDW 21.3 % (11.5-15.5); WBC 7.2 k/uL (3.8-10.6)
[2020-10-19 06:22] LABS: Glucose,Whole Blood 147 mg/dL (75-99)
[2020-10-19] MEDS: INSULIN ASPART (NovoLOG) 100 UNIT/ML VIAL SQ SCH ×4 (06:45→20:59)
[2020-10-19 08:13] LABS: Anisocytosis Moderate; HCT 23.8 % (34.0-46.0); HGB 7.1 gm/dL (11.4-16.0); Hypochromasia Marked; MCH 26.9 pg (25.0-35.0); MCHC 29.9 g/dL (31.0-37.0); MCV 89.8 fL (80.0-100.0); Platelet Count 285 k/uL (150-450); Poikilocytosis Marked; RBC 2.65 m/uL (3.80-5.40); RDW 21.3 % (11.5-15.5); WBC 7.4 k/uL (3.8-10.6)
[2020-10-19] MEDS: PANTOPRAZOLE 40 MG/10 ML VIAL IVP SCH ×2 (10:34→21:11)
[2020-10-19] MEDS: carvediloL 6.25 MG TAB PO SCH ×2 (10:34→17:31)
[2020-10-19 11:50] LABS: Glucose,Whole Blood 163 mg/dL (75-99)
[2020-10-19] MEDS ORDERED: PROPOFOL 10 MG/ML 20 ML VIAL IV ONE (12:54)
[2020-10-19] MEDS ORDERED: LIDOCAINE 1% INJ 10MG/ML (20 ML MDV) ONE (12:54)
[2020-10-19] MEDS ORDERED: ePHEDrine SULFATE/0.9% NACL/PF 50 MG/5 ML SYRINGE IV ONE (12:54)
[2020-10-19] MEDS ORDERED: SODIUM CHLORIDE 0.9% 500 ML 500 ML IV ONE ×2 (12:55)
--- NOTE | 2020-10-19 13:12 | P.PCN ---
Date of Procedure: 10/19/20 Procedure(s) Performed: BRIEF HISTORY: Patient is a 85-year-old, pleasant, white female admitted hospital with hematemesis. Her initial hemoglobin was 5.9 g/dL precipitates appeared beefy transition. He scheduled for an upper endoscopy to evaluate further. PROCEDURE PERFORMED: Esophagogastroduodenoscopy with biopsy. PREOPERATIVE DIAGNOSIS: Acute upper GI bleed. IV sedation per anesthesia. PROCEDURE: After informed consent was obtained, the patient was brought into the endoscopy unit. IV sedation was administered by Anesthesia under continuous monitoring. Initially the Olympus GIF-140 video endoscope was inserted into the mouth. Esophagus intubated without any difficulty. It was gradually advanced into the stomach and duodenum and carefully examined. The bulb and the second part of the duodenum appeared normal. The scope at this time was withdrawn to the stomach, adequately insufflated with air, and upon careful examination, mucosa of the antrum, appeared normal. In the distal body the stomach there were 2 ulcerations measuring 1 cm and 2 cm Clean based with no active bleeding. The larger of the ulcers had some raised margins and hence multiple biopsies were done from the margin of the ulcer through the neoplasm. Mucosa of the body, cardia and the fundus appeared normal. The scope was then withdrawn into the esophagus. Small sliding-type well hernia noted. The GE junction was located at 39 cm from the incisors. The esophagus appeared normal. There were no erosions or ulcerations seen and the patient tolerated the procedure well. IMPRESSION: 1. 1 cm and 2 cm clean-based gastric ulcers in the distal body the stomach with no active bleeding, status post multiple biopsies 2. Small hiatal hernia. RECOMMENDATIONS: The findings of this examination were discussed with the patient as well as a family. At this time will await the biopsy results. Diet will be advanced as tolerated. Continue with Protonix 40 mg twice daily. Monitor CBC daily..
--- NOTE | 2020-10-19 14:32 | P.PN ---
Subjective Progress Note Date: 10/19/20 HISTORY OF PRESENT ILLNESS Emy is a very pleasant 85 year old female pt of mine with a previous medical history significant for diabetes mellitus type 2, hyperlipidemia, hypertension,History of chronic kidney disease stage III, DVT, chronic atrial fibrillation with bradycardia status post permanent pacemaker implantation on eliquis, chronic diastolic heart failure with known EF of 55-60% with mild LVH. history of breast cancer She had a palpable right breast mass which she first noticed in early 2011 but did not seek medical attention for it until it became significantly larger, November 2013 she had mammograms which revealed a large suspicious mass in the left breast, biopsy confirmed invasive carcinoma. 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 Staging PET scan done on 12/14/13 revealed diffuse skeletal metastasis, no visceral disease. She started arimidex in December 2013. She had a thoracic spine MRI 01/27/14 which revealed multiple soft tissue masses at thoracic spine. Completed XRT to T spine on 02/28/14. Was mo nthly IVPB zometa for bone mets, this was eventually switched to SQ xgeva. Treatment f/u bone scan 11/24/14 revealed improvement in her bone metastasis. She fell in November 2015, CT brain was negative for metastatic disease, CT of neck revealed stable bone lesions. CT CAP and bone scan on 12/18/15 revealed no evidence of disease progression. F/U scans 10/24/16 and 11/06/17 have both revealed stable disease subsequently she had disease progression while she was at [facility] and she was placed in hospice care for sometimes and eventually was recently discharged from hospice as the patient was doing fine up until recently when she developed to have a significant bright red blood per rectum initially patient refused to go to the hospital and her hemoglobin did drop to 6.0 then after discussing that with the family the recommended for the patient to have 2 units of packed red blood cell at [facility] and her hemoglobin went back up again she was taken off her Eliquis as well as antiplatelet therapy, patient hemoglobin recovers however I received a call today from the nursing staff at [facility] stating that the patient hemoglobin dropped again to 5.8 after she had a bloody dark stool yesterday and today and they contacted the family her son wanted to be evaluated in the hospital to find the source of the bleed at this time she is currently off Eliquis and antiplatelet, she was admitted to the intensive care unit, GI consultation for upper and lower endoscopy. 10/18: Patient is quite agitated today she is not sure if she is wanted to go for EGD at this time, I extended the patient that she has to Stay on clear liquid diet if she decided to go for EGD tomorrow morning, ideally she should have EGD and colonoscopy however she would not want to go for colonoscopy at this stage, patient is quite upset she went to have oatmeal which I told her that she cannot have at this point due to her GI bleed patient has no chest pain, she has no shortness breath, she has no abdominal pain, nausea or vomiting she has no further bleeding today hemodynamic she stable she was moved out of ICU, she was seen in consultation by Dr. Tamez and she is scheduled for EGD tomorrow jc wade. 10/19: Patient underwent EGD with biopsy with Dr. Canales that found a 1 cm and a 2 cm clean-based gastric ulcers in the distal body of the stomach with no active bleeding. Small hiatal hernia. Recommendations were to advance diet as tolerated and continue Protonix 40 mg twice daily. Patient has been afebrile, heart rate 66, blood pressure 104/56, pulse ox 97% on room air. Repeat hemoglobin is 7.1. REVIEW OF SYSTEMS Constitutional: Reports anorexia, Reports chronic pain, Reports fatigue, Reports lethargy, Reports malaise, Reports weakness, Reports weight loss Eyes: bilateral blurred vision, denies bulging eye, denies decreased vision Ears: bilateral: decreased hearing Ears, nose, mouth and throat: Denies dysphagia, Denies neck lump, Denies sore throat Cardiovascular: Reports decreased exercise tolerance, Reports dyspnea on exertion, Reports high blood pressure, Reports irregular heart beat, Reports leg edema, Reports lightheadedness, Reports rapid heart beat, Reports shortness of breath, Denies chest pain, Denies syncope Respiratory: Reports sleep apnea, Denies congestion, Denies cough, Denies cough with sputum, Denies hemoptysis, Denies home oxygen, Denies snoring, Denies wheezing Gastrointestinal: Reports BRBPR, Reports change in bowel habits, Reports hematochezia, Reports loss of appetite, Reports melena, Reports nausea, Denies abdominal pain, Denies belching, Denies bloating, Denies coffee ground emesis, Denies constipation, Denies diarrhea, Denies dyspepsia, Denies early satiety, Denies excessive gas, Denies heartburn, Denies hematemesis, Denies indigestion, Denies jaundice, Denies lactose intolerance, Denies vomiting Genitourinary: Denies dysuria, Denies hematuria Menstruation: Reports postmenopausal Musculoskeletal: Reports atrophy, Reports frequent falls, Reports gait dysfunction, Reports loss of height, Reports low back pain Musculoskeletal: bilateral: ankle swelling, hip stiffness, knee stiffness, knee swelling, shoulder pain, shoulder stiffness, absent: elbow pain, elbow stiffness, elbow swelling, foot pain, foot stiffness, foot swelling, hand pain, hand stiffness, hand swelling, hip pain, hip swelling, knee pain, shoulder swelling, wrist pain, wrist stiffness, wrist swelling Integumentary: Reports brittle nails, Reports change in hair/nails, Reports color changes Neurological: Reports balance difficulties, Reports change in mentation, Reports gait dysfunction, Reports headaches, Reports memory loss, Reports sensory deficit, Reports weakness Psychiatric: Reports anxiety, Reports depression, Reports memory loss, Denies paranoia, Denies sadness/tearfulness, Denies sleep disturbances, Denies suicidal ideation Endocrine: Denies fatigue, Denies weight change PHYSICAL EXAMINATION HEENT: Head is atraumatic, normocephalic, pupils were equal round reactive to light and recommendation, extraocular muscle movement were intact, mucous mem branes of the mouth are moist. Neck: Supple, no JVD, no primary. Chest: Decreased breath sounds at the bases, few rhonchi, no expiratory wheezes, no chest wall tenderness, no intercostal retractions. Heart: First heart sound is depressed, second heart sound is normal, there is systolic ejection murmur 2/6 located at the left sternal border, there is permanent pacemaker located in the left upper precordium. Abdomen: Soft, nontender, nondistended, positive bowel sounds. Extremities: There is +2 edema no calf tenderness, chronic skin changes due to stasis dermatitis, dorsalis pedis +1 bilaterally. Neurologic examination: Patient is awake alert and oriented 2, creatinine nerves III-12 appear grossly intact, muscle power 4 out of 5 in upper extremities and 3 out of 5 bilateral lower extremities, deep tendon or flexes were depressed bilaterally. ASSESSMENT AND PLAN 1. Upper GI bleed GI bleed could be related to peptic ulcer disease however the possibility of with lower GI bleed could not be entirely excluded. Continue patient on Protonix 40 mg IV push every 12 hours., continue to monitor CBC, continue clear liquid diet and advanced as tolerated. 2. Hypertension and hypertensive cardiovascular disease. we will continue with the carvedilol 6.25 mg orally twice every day. 3. Hyperlipidemia. Continue patient on low-cholesterol diet. 4. Diabetes mellitus type 2. Decrease Levemir to 20 units at bedtime along with a sliding scale insulin as the patient was not eating. 5. Overactive bladder.discontinue oxybutynin as the patient has Alfredo catheter in place. 6. Proximal atrial fibrillation/flutter post permanent pacemaker placement continue patient on Coreg 6.25 mg orally twice every , hold Eliquis and aspirin for now. 7. Chronic diastolic heart failure. Continue patient on Coreg, hold Bumex. 8. History of breast cancer with bone metastatic disease. Appears to be at baseline. 9. Constipation. stable. 10. DVT prophylaxis. bilateral knee-high DANIELITO hose. 11. GI prophylaxis. Continue Protonix 40 mg IV push every 12 hours. 12. Chronic kidney disease stage III. Appears to be back to baseline. 13. DO NOT RESUSCITATE. DISCHARGE PLAN Return to [facility] on Monday. Impression and plan of care have been directed as dictated by the signing physician. Nini Malone nurse practitioner acting as scribe for signing physician. Objective - Vital Signs Vital signs: Vital Signs Temp 97.3 F L 10/19/20 08:00 Pulse 66 10/19/20 08:00 Resp 16 10/19/20 04:00 BP 104/56 10/19/20 08:00 Pulse Ox 97 10/19/20 08:00 Intake & Output 10/18/20 10/19/20 10/19/20 18:59 06:59 18:59 Intake Total 240 Balance 240 Intake: Oral 240 Other: Voiding Method Diaper Diaper # Voids 1 - Labs CBC & Chem 7: 10/19/20 07:27 10/18/20 05:04 Labs: Abnormal Lab Results - Last 24 Hours (Table) 10/18/20 10/18/20 10/18/20 Range/Units 16:40 17:33 20:26 RBC 2.59 L (3.80-5.40) m/uL Hgb 7.5 L (11.4-16.0) gm/dL Hct 23.0 L (34.0-46.0) % MCHC (31.0-37.0) g/dL RDW 21.2 H (11.5-15.5) % POC Glucose (mg/dL) 390 H 261 H (75-99) mg/dL 10/19/20 10/19/20 10/19/20 Range/Units 01:20 06:18 07:27 RBC 2.49 L 2.65 L (3.80-5.40) m/uL Hgb 7.1 L 7.1 L (11.4-16.0) gm/dL Hct 22.1 L 23.8 L (34.0-46.0) % MCHC 29.9 L (31.0-37.0) g/dL RDW 21.3 H 21.3 H (11.5-15.5) % POC Glucose (mg/dL) 147 H (75-99) mg/dL 10/19/20 Range/Units 11:38 RBC (3.80-5.40) m/uL Hgb (11.4-16.0) gm/dL Hct (34.0-46.0) % MCHC (31.0-37.0) g/dL RDW (11.5-15.5) % POC Glucose (mg/dL) 163 H (75-99) mg/dL
[2020-10-19 16:40] LABS: Glucose,Whole Blood 226 mg/dL (75-99)
[2020-10-19 20:27] LABS: Glucose,Whole Blood 195 mg/dL (75-99)
[2020-10-19] MEDS: INSULIN DETEMIR (LEVEMIR) 100 UNIT/ML SYR SQ SCH (21:11)
[2020-10-19] MEDS: ATORVASTATIN 10 MG TAB PO SCH (21:11)
[2020-10-20 06:14] LABS: Glucose,Whole Blood 271 mg/dL (75-99)
[2020-10-20] MEDS: INSULIN ASPART (NovoLOG) 100 UNIT/ML VIAL SQ SCH ×2 (06:17→12:40)
--- NOTE | 2020-10-20 07:44 | P.DS ---
Providers Date of admission: 10/17/20 10:11 Expected date of discharge: 10/20/20 Attending physician: Syeda Peraza Consults: 10/17/20 10:10 Consult Physician Routine Consulting Provider: Dino Tamez Consult Reason/Comments: gib Do you want consulting provider notified?: Yes 10/17/20 10:12 Consult Physician Routine Consulting Provider: Brad Lui Consult Reason/Comments: icu Do you want consulting provider notified?: Yes Primary care physician: Syeda Peraza Hospital Course: HISTORY OF PRESENT ILLNESS Emy is a very pleasant 85 year old female pt of mine with a previous medical history significant for diabetes mellitus type 2, hyperlipidemia, hypertension,History of chronic kidney disease stage III, DVT, chronic atrial fibrillation with bradycardia status post permanent pacemaker implantation on eliquis, chronic diastolic heart failure with known EF of 55-60% with mild LVH. history of breast cancer She had a palpable right breast mass which she first noticed in early 2011 but did not seek medical attention for it until it became significantly larger, November 2013 she had mammograms which revealed a large suspicious mass in the left breast, biopsy confirmed invasive carcinoma. 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 Staging PET scan done on 12/14/13 revealed diffuse skeletal metastasis, no visceral disease. She started arimidex in December 2013. She had a thoracic spine MRI 01/27/14 which revealed multiple soft tissue masses at thoracic spine. Completed XRT to T spine on 02/28/14. Was monthly IVPB zometa for bone mets, this was eventually switched to SQ xgeva. Treatment f/u bone scan 11/24/14 revealed improvement in her bone metastasis. She fell in November 2015, CT brain was negative for metastatic disease, CT of neck revealed stable bone lesions. CT CAP and bone scan on 12/18/15 revealed no evidence of disease progression. F/U scans 10/24/16 and 11/06/17 have both reve aled stable disease subsequently she had disease progression while she was at [facility] and she was placed in hospice care for sometimes and eventually was recently discharged from hospice as the patient was doing fine up until recently when she developed to have a significant bright red blood per rectum initially patient refused to go to the hospital and her hemoglobin did drop to 6.0 then after discussing that with the family the recommended for the patient to have 2 units of packed red blood cell at [facility] and her hemoglobin went back up again she was taken off her Eliquis as well as antiplatelet therapy, patient hemoglobin recovers however I received a call today from the nursing staff at [facility] stating that the patient hemoglobin dropped again to 5.8 after she had a bloody dark stool yesterday and today and they contacted the family her son wanted to be evaluated in the hospital to find the source of the bleed at this time she is currently off Eliquis and a ntiplatelet, she was admitted to the intensive care unit, GI consultation for upper and lower endoscopy. 10/18: Patient is quite agitated today she is not sure if she is wanted to go for EGD at this time, I extended the patient that she has to Stay on clear liquid diet if she decided to go for EGD tomorrow morning, ideally she should have EGD and colonoscopy however she would not want to go for colonoscopy at this stage, patient is quite upset she went to have oatmeal which I told her that she cannot have at this point due to her GI bleed patient has no chest pain, she has no shortness breath, she has no abdominal pain, nausea or vomiting she has no further bleeding today hemodynamic she stable she was moved out of ICU, she was seen in consultation by Dr. Tamez and she is scheduled for EGD tomorrow morning. 10/19: Patient underwent EGD with biopsy with Dr. Hussein that found a 1 cm and a 2 cm clean-based gastric ulcers in the distal body of the stomach with no active bleeding. Small hiatal hernia. Recommendations were to advance diet as tolerated and continue Protonix 40 mg twice daily. Patient has been afebrile, heart rate 66, blood pressure 104/56, pulse ox 97% on room air. Repeat hemoglobin is 7.1. 10/20: Patient is status post 2 units of packed RBCs on October 17. Repeat blood work today reveals hemoglobin of 7.4 with no need for transfusion. Sodium 131, potassium 4.1, chloride 105, CO2 22, BUN 35 and creatinine 1.48. Blood sugars are running between 195 and 271. Patient has been afebrile, heart rate in the 60s, blood pressure 106/53, pulse ox 96% on room air. residential monitor is ventricular paced rhythm. Biopsy reports are pending. Patient will be discharged back to [facility] in stable condition. ASSESSMENT AND PLAN 1. Acute upper GI bleed secondary to gastric ulcers with acute blood loss anemia 2. Hypertension and hypertensive cardiovascular disease. 3. Hyperlipidemia. 4. Diabetes mellitus type 2. 5. Overactive bladder. 6. Paroxysmal atrial fibrillation/flutter post permanent pacemaker placement. 7. Chronic diastolic heart failure. 8. History of breast cancer with bone metastatic disease. 9. Constipation. 10. Chronic kidney disease stage III. DISCHARGE PLAN Return to [facility] on Monday under the care of Dr. Peraza. Impression and plan of care have been directed as dictated by the signing physician. Nini Malone nurse practitioner acting as scribe for signing physician. Patient Condition at Discharge: Stable Plan - Discharge Summary New Discharge Prescriptions: Continue Aspirin [Adult Low Dose Aspirin EC] 81 mg PO DAILY@1700 Cyanocobalamin (Vitamin B-12) [Vitamin B-12] 2,500 mcg PO DAILY@1200 Ascorbic Acid [Vitamin C] 500 mg PO DAILY@1200 Acetaminophen Tab [Tylenol] 650 mg PO BID@0800,1700 bisacodyL [Dulcolax] 10 mg RECTAL DAILY PRN PRN Reason: Constipation Acetaminophen Tab [Tylenol] 650 mg PO Q6HR PRN tab PRN Reason: Mild Pain Guaifenesin/Dextromethorphan [guaiFENesin DM] 10 ml PO Q6H PRN PRN Reason: Cough Ipratropium-Albuterol Nebulize [Duoneb 0.5 mg-3 mg/3 ml Soln] 3 ml INHALATION RT-Q6H PRN PRN Reason: Congestion Clobetasol Propionate [Temovate 0.05% Cream] 1 applic TOPICAL BID carvediloL [Coreg] 6.25 mg PO BID@0800,1700 Insulin Detemir (Levemir) [Levemir] 30 unit SQ HS@2130 Cholecalciferol (Vitamin D3) [Vitamin D3] 2,000 unit PO DAILY@0800 Insulin Aspart [NovoLOG] 9 units SQ AC-BRKFST@0700 Insulin Aspart [NovoLOG] 12 units SQ AC-SUPPER@1630 Insulin Aspart [NovoLOG] 10 units SQ AC-LUNCH@1100 Magnesium Hydroxide [Milk of Magnesia Concentrate] 7,200 mg PO DAILY PRN PRN Reason: Constipation Fluticasone Nasal [place] [Flonase Nasal [place]] 2 spray EA NOSTRIL DAILY spr Na Phos,M-B/Na Phos,Di-Ba [Fleet Adult] 133 ml RECTAL DAILY PRN PRN Reason: Constipation Acetaminophen Suppository [Tylenol Suppository] 650 mg RECTAL Q4H PRN PRN Reason: general discomfort Albuterol Sulfate [Ventolin HFA] 1 - 2 puff INHALATION RT-Q6H PRN PRN Reason: Shortness Of Breath Atorvastatin [Lipitor] 10 mg PO HS@2100 Ferrous Sulfate [Iron (65 MG Elemental)] 325 mg PO BID@0800,1700 Menthol-Zinc Oxide Oint [Calmoseptine Oint] 1 applic TOPICAL BID Sennosides/Docusate Sodium [Senna Plus 8.6-50 mg Tablet] 1 tab PO BID@0800,1700 Apixaban [Eliquis] 2.5 mg PO BID@0800,1700 #0 Mag Hydrox/Al Hydrox/Simeth [Maalox] 30 ml PO Q6H PRN PRN Reason: Heartburn Torsemide [Demadex] 20 mg PO BID@0800,1700 Changed Pantoprazole [Protonix] 40 mg PO BID #0 Discontinued Naproxen Sodium [Aleve] 220 mg PO Q12H PRN PRN Reason: Shoulder Pain Discharge Medication List Aspirin [Adult Low Dose Aspirin EC] 81 mg PO DAILY@1700 10/06/17 [History] Ascorbic Acid [Vitamin C] 500 mg PO DAILY@1200 06/26/18 [History] Cyanocobalamin (Vitamin B-12) [Vitamin B-12] 2,500 mcg PO DAILY@1200 06/26/18 [History] Acetaminophen Tab [Tylenol] 650 mg PO BID@0800,1700 07/18/18 [History] bisacodyL [Dulcolax] 10 mg RECTAL DAILY PRN 07/18/18 [History] Acetaminophen Tab [Tylenol] 650 mg PO Q6HR PRN tab 07/31/18 [Rx] Cholecalciferol (Vitamin D3) [Vitamin D3] 2,000 unit PO DAILY@0800 09/14/19 [History] Clobetasol Propionate [Temovate 0.05% Cream] 1 applic TOPICAL BID 09/14/19 [History] Guaifenesin/Dextromethorphan [guaiFENesin DM] 10 ml PO Q6H PRN 09/14/19 [History] Insulin Aspart [NovoLOG] 9 units SQ AC-BRKFST@0700 09/14/19 [History] Insulin Aspart [NovoLOG] 10 units SQ AC-LUNCH@1100 09/14/19 [History] Insulin Aspart [NovoLOG] 12 units SQ AC-SUPPER@1630 09/14/19 [History] Insulin Detemir (Levemir) [Levemir] 30 unit SQ HS@2130 09/14/19 [History] Ipratropium-Albuterol Nebulize [Duoneb 0.5 mg-3 mg/3 ml Soln] 3 ml INHALATION RT-Q6H PRN 09/14/19 [History] Magnesium Hydroxide [Milk of Magnesia Concentrate] 7,200 mg PO DAILY PRN 09/14/19 [History] carvediloL [Coreg] 6.25 mg PO BID@0800,1700 09/14/19 [History] Fluticasone Nasal [place] [Flonase Nasal [place]] 2 spray EA NOSTRIL DAILY spr 09/18/19 [Rx] Acetaminophen Suppository [Tylenol Suppository] 650 mg RECTAL Q4H PRN 03/20/20 [History] Na Phos,M-B/Na Phos,Di-Ba [Fleet Adult] 133 ml RECTAL DAILY PRN 03/20/20 [History] Albuterol Sulfate [Ventolin HFA] 1 - 2 puff INHALATION RT-Q6H PRN 10/17/20 [History] Atorvastatin [Lipitor] 10 mg PO HS@2100 10/17/20 [History] Ferrous Sulfate [Iron (65 MG Elemental)] 325 mg PO BID@0800,1700 10/17/20 [History] Mag Hydrox/Al Hydrox/Simeth [Maalox] 30 ml PO Q6H PRN 10/17/20 [History] Menthol-Zinc Oxide Oint [Calmoseptine Oint] 1 applic TOPICAL BID 10/17/20 [History] Sennosides/Docusate Sodium [Senna Plus 8.6-50 mg Tablet] 1 tab PO BID@0800,1700 10/17/20 [History] Torsemide [Demadex] 20 mg PO BID@0800,1700 10/17/20 [History] Apixaban [Eliquis] 2.5 mg PO BID@0800,1700 #0 10/20/20 [Rx] Pantoprazole [Protonix] 40 mg PO BID #0 10/20/20 [Rx] Follow up Appointment(s)/Referral(s): Syeda Peraza MD [Primary Care Provider] - 1 Week (at [facility]) Anusha Hussein MD [STAFF PHYSICIAN] - 2 Weeks Activity/Diet/Wound Care/Special Instructions: Resume Plavix on 10/27. Discharge Disposition: TRANSFER TO SNF/ECF
[2020-10-20 08:23] LABS: Anisocytosis Moderate; HCT 24.4 % (34.0-46.0); HGB 7.4 gm/dL (11.4-16.0); Hypochromasia Marked; MCH 27.8 pg (25.0-35.0); MCHC 30.5 g/dL (31.0-37.0); MCV 91.3 fL (80.0-100.0); Macrocytosis Slight; Mean Platelet Volume 7.3; Platelet Count 272 k/uL (150-450); Poikilocytosis Marked; RBC 2.67 m/uL (3.80-5.40); RDW 20.4 % (11.5-15.5); WBC 9.8 k/uL (3.8-10.6)
[2020-10-20 08:40] LABS: Albumin 2.1 g/dL (3.5-5.0); Calcium 9.6 mg/dL (8.4-10.2); Potassium 4.1 mmol/L (3.5-5.1); Total Bilirubin 0.4 mg/dL (0.2-1.3); Total Protein 4.5 g/dL (6.3-8.2)
[2020-10-20] MEDS: PANTOPRAZOLE 40 MG/10 ML VIAL IVP SCH (08:52)
[2020-10-20] MEDS: carvediloL 6.25 MG TAB PO SCH (08:52)
[2020-10-20 10:46] VITALS: BP 127/71; PULSE 68; RESP 18; TEMP 97.7
--- NOTE | 2020-10-20 12:06 | P.PN ---
Subjective Progress Note Date: 10/20/20 Principal diagnosis: Melena, Upper GI bleed This is a 85-year-old female with a history of atrial fibrillation on Eliquis Romana who presented to the hospital for evaluation of melena and anemia. Patient had been having dark colored stool, no coffee-ground emesis, nausea and vomiting or bright red blood per rectum reported. Yesterday she underwent an upper endoscopy which revealed 2 clean-based gastric ulcers in the distal body of the stomach with no active bleeding, status post multiple biopsies. Small hiatal hernia. Today she is seen and examined lying in bed. She denies any abdominal pain, nausea, or vomiting. She states she has not noted any blood per rectum or blood in stool. Hemoglobin was stable at 7.4 today Objective - Vital Signs Vital signs: Vital Signs Temp 97.3 F L 10/19/20 08:00 Pulse 62 10/20/20 03:46 Resp 16 10/20/20 03:46 BP 106/53 10/20/20 03:46 Pulse Ox 96 10/20/20 03:46 Intake & Output 10/19/20 10/20/20 10/20/20 18:59 06:59 18:59 Intake Total 540 240 Balance 540 240 Weight 94.5 kg Intake: IV 300 Oral 240 240 Other: Voiding Method Diaper Diaper # Voids 2 1 # Bowel Movements 1 1 - Exam General appearance: The patient is alert, oriented, appears in no acute distress. HET: Head is normocephalic and atraumatic. Conjunctiva pink. Sclera anicteric. Neck: Supple without lymphadenopathy. Abdomen: Soft, nontender, nondistended with bowel sounds. No guarding or rigidity. Extremities: Normal skin color and turgor. No pedal edema Skin: No rashes, no jaundice Neurological: No focal deficits. Alert and oriented 3. - Labs CBC & Chem 7: 10/20/20 07:35 10/20/20 07:35 Labs: Abnormal Lab Results - Last 24 Hours (Table) 10/19/20 10/19/20 10/19/20 Range/Units 11:38 16:39 20:26 RBC (3.80-5.40) m/uL Hgb (11.4-16.0) gm/dL Hct (34.0-46.0) % MCHC (31.0-37.0) g/dL RDW (11.5-15.5) % Sodium (137-145) mmol/L BUN (7-17) mg/dL Creatinine (0.52-1.04) mg/dL Glucose (74-99) mg/dL POC Glucose (mg/dL) 163 H 226 H 195 H (75-99) mg/dL Total Protein (6.3-8.2) g/dL Albumin (3.5-5.0) g/dL 10/20/20 10/20/20 10/20/20 Range/Units 06:13 07:35 07:35 RBC 2.67 L (3.80-5.40) m/uL Hgb 7.4 L (11.4-16.0) gm/dL Hct 24.4 L (34.0-46.0) % MCHC 30.5 L (31.0-37.0) g/dL RDW 20.4 H (11.5-15.5) % Sodium 131 L (137-145) mmol/L BUN 35 H (7-17) mg/dL Creatinine 1.48 H (0.52-1.04) mg/dL Glucose 253 H (74-99) mg/dL POC Glucose (mg/dL) 271 H (75-99) mg/dL Total Protein 4.5 L (6.3-8.2) g/dL Albumin 2.1 L (3.5-5.0) g/dL Assessment and Plan (1) Melena Narrative/Plan: 85-year-old female with multiple medical comorbidities including atrial fibrillation on Eliquis therapy who presented to the hospital for evaluation of melena and anemia. Patient had been having dark colored stool with no coffee- ground emesis, nausea and vomiting, or bright red blood per rectum, however there been reports of blood per rectum in the past. She denies any abdominal pain. No known history of peptic ulcer disease and the patient does not believe she had endoscopic evaluation in the past. She is on NSAID therapy for osteoarthritis. Unclear etiology, differential includes peptic ulcer disease, gastritis, esophagitis or other etiology. She is status post upper endoscopy revealing 2 clean based gastric ulcers in the distal body of the stomach with no active bleeding, small hiatal hernia Current Visit: Yes Status: Acute Code(s): K92.1 - MELENA SNOMED Code(s): 1938991 (2) Anemia associated with acute blood loss Current Visit: Yes Status: Acute Code(s): D62 - ACUTE POSTHEMORRHAGIC ANEMIA SNOMED Code(s): 543134794 (3) GI bleed Current Visit: Yes Status: Acute Code(s): K92.2 - GASTROINTESTINAL HEMORRHAGE, UNSPECIFIED SNOMED Code(s): 28543844 Plan: 1. Supportive care 2. Regular diet 3. Continue Protonix 40 mg twice daily 4. Hold Eliquis for 48 hours 5. Patient recommended to follow up outpatient setting in 1-2 weeks for biopsy results Thank you for this consultation, patient may be discharged home from a gastroenterology standpoint Dr. Portia Hussein I agree with the dictator's note, documented as a scribe by Astrid Sweet.
[2020-10-20 12:13] LABS: Glucose,Whole Blood 234 mg/dL (75-99)
== END 2020-10-20 15:35 | DRG 378 ==
LOC: EC 08:21 → 2SICU 10:11 → 3SCARD 10-18 11:05
PROVIDERS: ADMIT Internal Medicine; ATTEND Internal Medicine
PROC: 30230N1 Transfusion of Nonautologous Red Blood Cells into Peripheral Vein, Open Approach (ICD-10-PCS; 2020-10-17)
PROC: 0DB68ZX Excision of Stomach, Via Natural or Artificial Opening Endoscopic, Diagnostic (ICD-10-PCS; principal; 2020-10-19 07:50)
DX: K25.4 Chronic or unspecified gastric ulcer with hemorrhage (principal); I13.0 Hypertensive heart and chronic kidney disease with heart failure and stage 1 through stage 4 chronic kidney disease, or unspecified chronic kidney disease; I50.32 Chronic diastolic (congestive) heart failure; C79.51 Secondary malignant neoplasm of bone; N17.9 Acute kidney failure, unspecified; D62 Acute posthemorrhagic anemia; E11.22 Type 2 diabetes mellitus with diabetic chronic kidney disease; C50.911 Malignant neoplasm of unspecified site of right female breast; Z79.4 Long term (current) use of insulin; N18.30 Chronic kidney disease, stage 3 unspecified; I48.0 Paroxysmal atrial fibrillation; Z66 Do not resuscitate; Z20.822 Contact with and (suspected) exposure to COVID-19; K44.9 Diaphragmatic hernia without obstruction or gangrene; E78.5 Hyperlipidemia, unspecified; N32.81 Overactive bladder; K59.00 Constipation, unspecified; M19.90 Unspecified osteoarthritis, unspecified site; R00.1 Bradycardia, unspecified; I87.2 Venous insufficiency (chronic) (peripheral); Z17.0 Estrogen receptor positive status [ER+]; Z79.82 Long term (current) use of aspirin; Z79.01 Long term (current) use of anticoagulants; Z79.899 Other long term (current) drug therapy; Z86.718 Personal history of other venous thrombosis and embolism; Z86.69 Personal history of other diseases of the nervous system and sense organs; Z90.11 Acquired absence of right breast and nipple; Z92.3 Personal history of irradiation; Z87.442 Personal history of urinary calculi; Z87.440 Personal history of urinary (tract) infections; Z86.19 Personal history of other infectious and parasitic diseases; Z87.81 Personal history of (healed) traumatic fracture; Z90.49 Acquired absence of other specified parts of digestive tract; Z98.51 Tubal ligation status; Z98.42 Cataract extraction status, left eye; Z98.41 Cataract extraction status, right eye; Z87.2 Personal history of diseases of the skin and subcutaneous tissue; Z87.39 Personal history of other diseases of the musculoskeletal system and connective tissue; Z95.0 Presence of cardiac pacemaker; Z86.79 Personal history of other diseases of the circulatory system; Z91.81 History of falling; Z98.890 Other specified postprocedural states; Z88.5 Allergy status to narcotic agent; Z88.7 Allergy status to serum and vaccine; Z83.3 Family history of diabetes mellitus; Z82.49 Family history of ischemic heart disease and other diseases of the circulatory system
CPT/HCPCS: 36415; 43239; 80053; 83540; 83550; 83735; 85025; 85027; 85610; 85730; 86850; 86900; 86901; 86920; 87635; 88305; 88313; 88342; 96360; 96361; 99285